=== PATIENT | male | born 1955 | race Caucasian/White ===

== ENCOUNTER 2019-07-09 11:00 | Outpatient (RCR) | payer SELFPAY | END 2019-08-08 00:01 | LOC: CR 11:00 | PROVIDERS: Family Provider Internal Medicine; Referring Provider Thoracic Surgery (Cardiothoracic Vascular Surgery); Visit Provider Thoracic Surgery (Cardiothoracic Vascular Surgery) | DX: Z48.812 Encounter for surgical aftercare following surgery on the circulatory system (principal) ==

== ENCOUNTER 2019-08-16 13:31 | Outpatient (RCR) | payer SELFPAY | END 2019-09-08 23:59 | disposition home or self-care (01) | LOC: CR 13:31 | PROVIDERS: Family Provider Internal Medicine; PCP Internal Medicine; Referring Provider Internal Medicine Cardiovascular Disease; Visit Provider Internal Medicine Cardiovascular Disease | DX: Z95.1 Presence of aortocoronary bypass graft (principal) ==

== ENCOUNTER 2020-01-08 15:11 | Outpatient (RCR) | payer SELFPAY | END 2020-02-06 23:59 | disposition home or self-care (01) | LOC: CR 15:11 | PROVIDERS: Family Provider Internal Medicine; PCP Internal Medicine; Referring Provider Internal Medicine Cardiovascular Disease; Visit Provider Internal Medicine Cardiovascular Disease | DX: Z95.1 Presence of aortocoronary bypass graft (principal) ==

== ENCOUNTER 2020-02-07 | Outpatient (RCR) | payer SELFPAY | END 2020-03-08 23:00 | disposition home or self-care (01) | LOC: CR | PROVIDERS: PCP Internal Medicine; Referring Provider Internal Medicine Cardiovascular Disease; Visit Provider Internal Medicine Cardiovascular Disease | DX: Z95.1 Presence of aortocoronary bypass graft (principal) ==

== ENCOUNTER 2020-02-12 15:15 | Outpatient (CLI) | payer MEDICARE, SELFPAY ==
--- NOTE | 2020-02-12 15:45 | USCV_ITS ---
Luis Alfredo Thompson Age: 65 Gender: M : 1955 Exam Date: 02/12/2020 15:47 Ordering Phys: Joce Hodge MD Technologist: DILLON GARCIA [place]am [place] [facility] [place] Indication: RIGHT LOWER EXTREMITY SWELLING PROCEDURES: Venous duplex imaging was performed in only the right lower extremity. The following venous structures were evaluated: common femoral vein, profunda vein, proximal portion of the greater saphenous vein, superficial femoral vein, and the popliteal vein. In addition, the posterior tibial and peroneal trunk were evaluated. Serial compression, augmentation maneuvers, and spectral Doppler flow evaluation were performed. FINDINGS: Normal 2-D Doppler and augmentation and compressibility throughout the lower extremity venous structures. Additional imaging through the proximal calf veins also reveals no thrombus. Limited evaluation of the greater saphenous vein is patent with no thrombus. CONCLUSIONS No DVT right lower extremity. Dr. Myra García DO (Electronically Signed) Final Date: 12 February 2020 16:15 S
== END 2020-02-12 15:16 | disposition home or self-care (01) ==
LOC: US 15:17
PROVIDERS: PCP Internal Medicine; Visit Provider Internal Medicine
DX: R22.41 Localized swelling, mass and lump, right lower limb (principal)
CPT/HCPCS: 93971

== ENCOUNTER 2020-03-12 14:29 | Outpatient (RCR) | payer SELFPAY | END 2020-04-08 23:59 | disposition home or self-care (01) | LOC: CR 14:29 | PROVIDERS: PCP Internal Medicine; Referring Provider Internal Medicine; Visit Provider Internal Medicine Cardiovascular Disease | DX: Z95.1 Presence of aortocoronary bypass graft (principal) ==

== ENCOUNTER 2020-04-09 14:54 | Outpatient (RCR) | payer SELFPAY | END 2020-05-08 23:59 | disposition home or self-care (01) | LOC: CR 14:54 | PROVIDERS: PCP Internal Medicine; Referring Provider Internal Medicine; Visit Provider Internal Medicine Cardiovascular Disease | DX: Z95.1 Presence of aortocoronary bypass graft (principal) ==

== ENCOUNTER 2020-05-10 11:02 | Outpatient (RCR) | payer SELFPAY | END 2020-06-08 23:59 | disposition home or self-care (01) | LOC: CR 11:02 | PROVIDERS: PCP Internal Medicine; Referring Provider Internal Medicine; Visit Provider Internal Medicine Cardiovascular Disease | DX: Z95.1 Presence of aortocoronary bypass graft (principal) ==

== ENCOUNTER 2020-06-09 13:20 | Outpatient (RCR) | payer SELFPAY | END 2020-07-08 23:59 | disposition home or self-care (01) | LOC: CR 13:20 | PROVIDERS: PCP Internal Medicine; Referring Provider Internal Medicine; Visit Provider Internal Medicine Cardiovascular Disease | DX: Z95.1 Presence of aortocoronary bypass graft (principal) ==

== ENCOUNTER 2020-07-11 13:32 | Outpatient (RCR) | payer SELFPAY | END 2020-08-08 23:59 | disposition home or self-care (01) | LOC: CR 13:32 | PROVIDERS: PCP Internal Medicine; Referring Provider Internal Medicine; Visit Provider Internal Medicine Cardiovascular Disease | DX: Z95.1 Presence of aortocoronary bypass graft (principal) ==

== ENCOUNTER 2020-12-31 03:11 | Emergency (ER) | payer MEDICARE, SELFPAY ==
[2020-12-31] VITALS (7 sets, daily range): BP systolic 167–211; BP diastolic 54–81; PULSE 53–82; RESP 16–24; TEMP 36.7–36.9; O2SAT 93–98; BMI 28.6
--- NOTE | 2020-12-31 04:42 | XRR_ITS ---
PROCEDURE INFORMATION: Exam: XR Chest Exam date and time: 12/31/2020 4:47 AM Age: 65 years old Clinical indication: Cough; Prior surgery; Surgery date: 6+ months TECHNIQUE: Imaging protocol: XR of the chest. Views: 1 view. COMPARISON: No relevant prior studies available. FINDINGS: Lungs: No consolidation. Pleural spaces: Unremarkable. No pleural effusion. No pneumothorax. Heart/Mediastinum: Cardiomegaly. Bones/joints: Previous median sternotomy. XR/XR chest 1V portable 27113 IMPRESSION: No acute findings.
[2020-12-31] MEDS: cloNIDine 0.1 mg Tablet PO (05:03)
--- NOTE | 2020-12-31 05:05 | PC.NURSE ---
0445: assumed care of pt at this time. Pt comes to ED with c/o elevated b/p. Pt is a/o x 4, answers all questions appropriately. at bedside.
[2020-12-31 05:09] LABS: Basophils % 0.3 %; Eosinophils # 0.3 10^3/uL (0.0-0.8); Eosinophils % 3.1 %; Hematocrit 42.1 % (42.0-52.0); Hemoglobin 13.6 g/dL (11.7-16.6); Lymphocytes # 1.7 10^3/uL (0.8-4.8); Lymphocytes % 15.6 %; Mean Corpuscular HGB Conc 32.3 g/dL (30.0-36.0); Mean Corpuscular Hemoglobin 30.6 pg (28.0-34.0); Mean Corpuscular Volume 94.8 fL (80-94); Mean Platelet Volume 10.7 fL (7.4-10.4); Monocytes # 0.8 10^3/uL (0.2-0.9); Monocytes % 7.6 %; Neutrophils % 73.3 %; Nucleated Red Blood Cells % 0 %; Platelet Count 254 10^3/cmm (130-400); Red Blood Count 4.44 10^6/uL (4.1-5.3); Red Cell Distribution Width 13.1 % (12.1-15.1); White Blood Count 10.9 10^3/uL (4.0-10.0)
[2020-12-31 05:29] LABS: Alanine Aminotransferase 11 U/L (0-41); Albumin Level 3.2 g/dL (3.5-5.2); Alkaline Phosphatase 99 IU/L (40-130); Aspartate Amino Transferase 17 U/L (0-40); Blood Urea Nitrogen 27 mg/dL (8-23); Calcium 7.8 mg/dL (8.5-10.5); Carbon Dioxide 21 mmol/L (22-29); Chloride 106 mmol/L (98-107); Globulin 3.2 g/dL (1.3-4.6); Glomerular Filtration Rate 55.2 mL/min (90-130); Glucose 152 mg/dL (65-115); Osmolality Calculated 294 mOsm/kg (285-295); Sodium 138 mmol/L (136-145); Total Bilirubin 0.2 mg/dL (0.15-1.2); Total Protein 6.4 g/dL (6.6-8.7)
--- NOTE | 2020-12-31 05:29 | W.ED.GENADLT ---
HPI - General Adult General: Chief complaint: General Medical Stated complaint: high BP Time Seen by Provider: 12/31/20 04:16 History of Present Illness: HPI narrative: Patient is a well-appearing 65-year-old male seen for hypertension. He states that he was about to go to bed, when he checked his blood pressure and found to be 220 systolic. He takes clonidine 0.1 mg twice daily and states that typically he has good blood pressure control, with systolic blood pressure of roughly 130. He denies chest pain, shortness of breath, headache, visual disturbance, flank pain, abdominal pain, and has no other acute complaints. He states that he has been compliant with his clonidine regimen, last dose being at roughly 7 PM on December 30. Review of Systems General: Reports: 10 or more systems reviewed and unremarkable except in HPI and below PFSH ED PFSH: Medical History CAD (coronary artery disease) Diabetes 1.5, managed as type 1 Essential hypertension Hypercholesterolemia Surgical History History of appendectomy Hx of CABG Family History Father Cancer Other Diabetes Social History Smoking and tobacco status: current every day smoker Alcohol intake: current Alcohol intake frequency: few times a month Marital status: Number of children: 2 service: No History of recent travel: No Current gender identity: Male Physical Exam Const: COMMON NORMALS: no acute distress, patient oriented x3 and alert HENMT: COMMON NORMALS: normocephalic and atraumatic HEAD & SCALP: normocephalic and atraumatic Eye: COMMON NORMALS: Equal, round and reactive pupils present, EOMs intact bilaterally and no scleral icterus PUPIL: Yes Equal, round and reactive pupils present Resp: COMMON NORMALS: normal respiratory effort, No retractions and No use of accessory muscles EFFORT & INSPECTION: Yes audible wheezes Cardio: COMMON NORMALS: regular rate, regular rhythm and No murmurs present (Cardio) RATE: regular rate RHYTHM: regular rhythm GI: COMMON NORMALS: Normal to inspection, nondistended, normoactive bowel sounds present, Soft to palpation and non-tender PALPATION: Yes Soft to palpation Neuro: COMMON NORMALS: patient oriented x3 SENSORIUM/ORIENTATION: Yes alert Skin: COMMON NORMALS: no rashes or lesions noted GENERAL SKIN EXAM: no rashes or lesions noted Course Vital Signs: Vital signs: Vital Signs Temperature 98.5 F 12/31/20 03:18 Pulse Rate 56 L 12/31/20 05:15 Respiratory Rate 16 12/31/20 05:05 Blood Pressure 196/81 12/31/20 05:03 Pulse Oximetry 98 12/31/20 05:05 MDM - General Adult MDM Narrative: Medical decision making narrative: Patient remained hemodynamically stable throughout ED course. He had mild expiratory wheezes in all lung jewell, however physical exam is otherwise unremarkable. He was given an extra dose of his clonidine and blood pressure dropped appropriately. EKG, chest x-ray, labs showed no acute process. He will be discharged home in stable and improved condition with close follow-up to primary care to consider further alteration to his antihypertensive regimen. He knows he is always welcome back in the emergency department if his symptoms get worse before outpatient follow-up. Lab Data: Labs: Lab Results 12/31/20 12/31/20 Range/Units 05:02 05:02 WBC 10.9 H (4.0-10.0) 10^3/ uL RBC 4.44 (4.1-5.3) 10^6/u L Hgb 13.6 (11.7-16.6) g/dL Hct 42.1 (42.0-52.0) % MCV 94.8 H (80-94) fL MCH 30.6 (28.0-34.0) pg MCHC 32.3 (30.0-36.0) g/dL RDW 13.1 (12.1-15.1) % Plt Count 254 (130-400) 10^3/c mm MPV 10.7 H (7.4-10.4) fL Neut % (Auto) 73.3 % Lymph % (Auto) 15.6 % [place] % (Auto) 7.6 % Eos % (Auto) 3.1 % Baso % (Auto) 0.3 % Neut # (Auto) 8.00 H (1.8-7.7) 10^3/u L Lymph # (Auto) 1.7 (0.8-4.8) 10^3/u L [place] # (Auto) 0.8 (0.2-0.9) 10^3/u L Eos # (Auto) 0.3 (0.0-0.8) 10^3/u L Baso # (Auto) 0.0 (0.0-0.1) 10^3/u L Nucleated RBC % (a uto) 0 % Nucleated RBCs # 0.0 /100WBC Sodium 138 (136-145) mmol/L Potassium 5.0 (3.5-5.1) mmol/L Chloride 106 (98-107) mmol/L Carbon Dioxide 21 L (22-29) mmol/L Anion Gap 16.0 (5-19) BUN 27 H (8-23) mg/dL Creatinine 1.3 H (0.7-1.2) mg/dL GFR Calculation 55.2 L (90-130) mL/min Glucose 152 H (65-115) mg/dL Calculated Osmolal ity 294 (285-295) mOsm/k g Calcium 7.8 L (8.5-10.5) mg/dL Total Bilirubin 0.2 (0.15-1.2) mg/dL AST 17 (0-40) U/L ALT 11 (0-41) U/L Alkaline Phosphata se 99 (40-130) IU/L Total Protein 6.4 L (6.6-8.7) g/dL Albumin 3.2 L (3.5-5.2) g/dL Globulin 3.2 (1.3-4.6) g/dL Imaging Data^: CXR: My impression: No acute cardiopulmonary process. No consolidation and no pneumothorax. EKG Data^: EKG 1: Computer generated interpretation: Chest X-Ray 12/31/20 04:42 IMPRESSION: No acute findings. Discharge Plan Discharge Patient Disposition: Home Clinical Impression: Accelerated hypertension Condition: Stable Prescriptions: No Action loratadine [Loradamed] 10 mg tablet 10 mg PO DAILY RF: 0 aspirin [Aamir Aspirin] 325 mg tablet 325 mg PO DAILY RF: 0 chlorthalidone 25 mg tablet 25 mg PO DAILY Qty: 90 RF: 3 blood sugar diagnostic [SimpliFieldTouch Ultra Blue Test Strip] Strip See Rx Instructions .ROUTE .COMPLEX Qty: 100 RF: 9 glimepiride 4 mg tablet 4 mg PO BID Qty: 180 RF: 3 metformin 1,000 mg tablet 1,000 mg PO BID Qty: 180 RF: 3 carvedilol 25 mg tablet 25 mg PO BID Qty: 180 RF: 3 losartan 100 mg tablet 150 mg PO DIRECTED Qty: 135 RF: 3 rosuvastatin 5 mg tablet 5 mg PO DAILY Qty: 30 RF: 5 amlodipine 5 mg tablet See Rx Instructions .ROUTE .COMPLEX Qty: 180 RF: 1 omeprazole 20 mg capsule,delayed release(DR/EC) 20 mg PO .at bedtime Qty: 90 RF: 3 clonidine HCl 0.1 mg tablet 0.1 mg PO BID Qty: 60 RF: 3 Discharge Orders: Discharge ED (Routine); Ordered 12/31/20 Ordered By: Marcos Aguilera Referrals: Joce Hodge MD [Primary Care Provider] - Discharge Diet: Usual diet Discharge Activity: Resume usual activity Patient Instructions: Opioid Safety Activity Restrictions/Additional Instructions: Testing today shows no evidence of endorgan damage from your accelerated hypertension. EKG, chest x-ray, labs are all reassuring. Please follow-up with your primary care physician to discuss whether augmentation to your antihypertensive medication regimen is warranted. Coding Level of Care Code ED Territory Business Manager for Chg Fwd Exam Detailed
[2020-12-31 05:30] LABS: Creatinine Clr Calc Pharmacy 52.0372
--- NOTE | 2020-12-31 05:35 | ECG_ITS ---
[facility] Test Date: 2020-12-31 Pat Name: Luis Alfredo Thomposn Department: Room: Gender: Male Block Cuber: : 1955 Requested By: Marcos Aguilera Order Number: [id number] Jack MD: Saba Sims M.D. Measurements Intervals [place] Rate: 53 P: 80 HI: 178 QRS: 50 QRSD: 110 T: 18 QT: 446 QTc: 419 Interpretive Statements SINUS BRADYCARDIA SEPTAL MYOCARDIAL INFARCTION , OF INDETERMINATE AGE [40+ ms Q WAVE IN V1/V2] No previous ECG available for comparison Electronically Signed On 12-31-2020 18:38:01 CDT by Saba Sims M.D. [id number] f
== END 2020-12-31 06:33 | disposition home or self-care (01) ==
PROVIDERS: Emergency Provider Student in an Organized Health Care Education/Training Program; PCP Internal Medicine
DX: I10 Essential (primary) hypertension (principal); Z79.82 Long term (current) use of aspirin; Z79.84 Long term (current) use of oral hypoglycemic drugs; I25.10 Atherosclerotic heart disease of native coronary artery without angina pectoris; E13.9 Other specified diabetes mellitus without complications; Z95.1 Presence of aortocoronary bypass graft; F17.210 Nicotine dependence, cigarettes, uncomplicated
CPT/HCPCS: 71045; 80053; 85025; 93005; 94640; 99284; J7611

== ENCOUNTER 2021-02-06 09:56 | Outpatient (RCR) | payer SELFPAY | END 2021-03-08 23:59 | disposition home or self-care (01) | LOC: CR 09:56 | PROVIDERS: PCP Internal Medicine; Referring Provider Internal Medicine Cardiovascular Disease; Visit Provider Internal Medicine Cardiovascular Disease | DX: Z95.1 Presence of aortocoronary bypass graft (principal) ==

== ENCOUNTER 2021-03-13 11:47 | Outpatient (RCR) | payer SELFPAY | END 2021-04-08 23:59 | disposition home or self-care (01) | LOC: CR 11:47 | PROVIDERS: PCP Internal Medicine; Referring Provider Internal Medicine Cardiovascular Disease; Visit Provider Internal Medicine Cardiovascular Disease | DX: Z95.1 Presence of aortocoronary bypass graft (principal) ==

== ENCOUNTER 2021-05-09 10:32 | Outpatient (RCR) | payer SELFPAY | END 2021-06-08 23:59 | disposition home or self-care (01) | LOC: CR 10:32 | PROVIDERS: PCP Internal Medicine; Referring Provider Internal Medicine Cardiovascular Disease; Visit Provider Internal Medicine Cardiovascular Disease | DX: Z95.1 Presence of aortocoronary bypass graft (principal) ==

== ENCOUNTER 2021-05-15 08:58 | Outpatient (CLI) | payer MEDICARE, SELFPAY ==
--- NOTE | 2021-05-15 09:05 | NMCV_ITS ---
NM pam perf SPECT r/s* [id number] Luis Alfredo Thompson Age: 66 Gender: M : 1955 Exam Date: 05/15/2021 09:05 Ordering Phys: Robert King MD ([email or web address]) Technologist: GREGG Reid Exam Location: [facility] Indications: SHORTNESS OF BREATH STRESS TEST [facility] IMAGE PROTOCOL Rest/Stress 1 Lexiscan Day Radiopharmaceutical Dose (mCi) Administration Site Administered by Rest: Tc-99m 11.0 IV GREGG Reid Sestamibi Stress:Tc-99m 32.5 IV GREGG Mulligan Sestamibi Rest: 15-May-2021 60 Discovery 630 Stress: 15-May-2021 30 Discovery 630 0.4mg Lexiscan. Supine position only as patient was unable to lay prone. SPECT RESULTS Technical Quality: Excellent Raw Data Analysis: Normal Image Corrections: No attenuation or motion correction applied Summed Stress Score: 18 Summed Rest Score: 3 Summed Difference Score: 15 PERFUSION FINDINGS Medium-sized area of reduced tracer uptake noted in basal to distal inferior wall on rest images which showed moderate to severe reversibility of medium to large area suggestive of old myocardial infarction surrounded by medium to large area of ischemia FUNCTIONAL RESULTS (calculated via Gated SPECT) Stress Image LV EF (%): 48 Stress EDV (mL):128 TID: 1 Stress ESV (mL):67 Rest Image LV EF (%): 48 FUNCTIONAL FINDINGS: Basal to distal inferior and infero lateral wall severe regional hypokinesis. In general there is a global hypokinesis as well. Left ventricle function is moderately depressed at 48%. IMPRESSIONS Medium to large area of old myocardial infarction noted in basal to distal inferior wall surrounded by large area of severe ischemia extending from inferior to inferolateral wall suggestive of lesion in dominant RCA or circumflex. EKG segment will be documented separately. Robert King MD (Electronically Signed) Final Date: 15 May 2021 14:25 S
--- NOTE | 2021-05-15 09:05 | ECG_ITS ---
[facility] Test Date: 2021-05-15 Pat Name: Luis Alfredo Thompson Department: Room: Gender: Male Cpo: : 1955 Requested By: Robert King Order Number: [id number] Jack MD: Saba Sims M.D. Interpretive Statements NAME OF STUDY: LEXISCAN SESTAMIBI STRESS TEST INDICATION: Chest Pain; Shortness of Breath PROCEDURE: At the baseline, the blood pressure was 159/70 mmHg with a heart rate of 58 bpm. The electrocardiogram showed sinus bradycardia, normal axis, ST-T depression and T wave inversion in inferior and lateral leads. The Lexiscan was infused over a period of 20 seconds. A total of 0.4 milligrams of Lexiscan was infused. The stress phase was continued for a total of 5 minutes. Heart rate at the end of the stress phase was 69 bpm with a blood pressure of 158/68 mmHg. The EKG at the peak infusion revealed no significant ST-T wave changes. The study was terminated due to protocol completion. Sestamibi was injected 20 seconds after the Lexiscan infusion. Blood pressure at the end of the recovery phase was 163/74 mmHg with a heart rate of 68 beats per minute. CONCLUSION: 1. Nondiagnostic EKG changes with the LexiScan infusion due to baseline ST-T wave changes. 2. No LexiScan induced chest pain or cardiac arrhythmia. 3. Normal blood pressure and heart rate response. 4. Sestamibi/sestamibi perfusion scan pending; see separate report. Electronically Signed On 05-19-2021 12:17:04 CDT by Saba Sims M.D. [id number]
[2021-05-15 09:13] VITALS: BMI 27.4
[2021-05-15] MEDS: regadenoson 0.4 Mg/5 ml Syringe IVP (10:33)
[2021-05-15 10:52] VITALS: BP 163/74; PULSE 68
== END 2021-05-15 08:59 | disposition home or self-care (01) ==
PROVIDERS: PCP Internal Medicine; Visit Provider Internal Medicine Cardiovascular Disease
DX: R07.9 Chest pain, unspecified (principal); R06.02 Shortness of breath; I25.2 Old myocardial infarction
CPT/HCPCS: 78452; 93017; A9500; J2785

== ENCOUNTER 2021-06-10 14:33 | Outpatient (RCR) | payer MEDICARE, SELFPAY | END 2021-07-08 23:59 | disposition home or self-care (01) | LOC: CR 14:33 | PROVIDERS: PCP Internal Medicine; Referring Provider Internal Medicine Cardiovascular Disease; Visit Provider Internal Medicine Cardiovascular Disease | DX: Z95.1 Presence of aortocoronary bypass graft (principal) | CPT/HCPCS: 80048; 85025; 85610; 87635 ==

== ENCOUNTER 2021-06-16 07:07 | Outpatient (CLI) | payer MEDICARE, SELFPAY ==
[2021-06-16 07:58] VITALS: BP 175/75; PULSE 60; RESP 18; TEMP 36.4; O2SAT 97; BMI 27.6
[2021-06-16] MEDS: diphenhydrAMINE 50 mg Capsule PO (08:21)
[2021-06-16 08:56] LABS: Anion Gap 12.4 (5-19); Blood Urea Nitrogen 21 mg/dL (8-23); Calcium 7.5 mg/dL (8.5-10.5); Carbon Dioxide 27 mmol/L (22-29); Chloride 110 mmol/L (98-107); Glomerular Filtration Rate 46.7 mL/min (90-130); Glucose 196 mg/dL (65-115); Osmolality Calculated 308 mOsm/kg (285-295); Potassium 4.4 mmol/L (3.5-5.1); Sodium 145 mmol/L (136-145)
[2021-06-16 09:31] VITALS: BMI 27.8
[2021-06-16] MEDS: sodium chloride 0.9% 1,000 ML 100 ML IV ×3 (10:16→19:40)
[2021-06-16] MEDS: pantoprazole DR 40 mg Tablet PO (10:17)
[2021-06-16] MEDS: amlodipine 5 mg Tablet PO ×2 (10:17→17:16)
[2021-06-16 12:04] VITALS: BP 164/68; PULSE 56; RESP 26; O2SAT 96
[2021-06-16 12:36] VITALS: TEMP 37.1
[2021-06-16 15:41] VITALS: BP 183/64; PULSE 57; RESP 18; TEMP 36.9; O2SAT 95
[2021-06-16] MEDS: carvedilol 25 mg Tablet PO (17:16)
[2021-06-16] MEDS: isosorbide mononitrate ER 30 mg Tablet 15 MG PO (17:16)
[2021-06-16] MEDS: cloNIDine 0.1 mg Tablet 0.2 MG PO (17:16)
[2021-06-16 19:38] VITALS: BP 186/63; PULSE 56; RESP 24; TEMP 36.6; O2SAT 96
--- NOTE | 2021-06-16 19:52 | PC.NURSE ---
Patient called to say he needed his iv plugged in. When in the room his stated I don't care what time visiting hours are, I will stay until when I want to. If visiting hours end at eight, I will stay until 815 to prove my point. No one is going to tell me when and what time time I can come and go as I am the only person that can calm him down if needed. Educated and patient on visiting hours per policy. Will inform patients nurse.
[2021-06-16] MEDS: atorvastatin 40 mg Tablet 20 MG PO (20:06)
[2021-06-16 23:56] VITALS: BP 190/68; PULSE 59; RESP 24; TEMP 36.6; O2SAT 94
[2021-06-17] VITALS (59 sets, daily range): BP systolic 117–196; BP diastolic 54–93; PULSE 53–75; RESP 14–26; TEMP -12.7–36.3; O2SAT 91–96
[2021-06-17] MEDS: hyDRALAzine 20 mg/mL INJ 1 mL 10 MG IVP (00:38)
[2021-06-17] MEDS: sodium chloride 0.9% 1,000 ML 100 ML IV (05:02)
[2021-06-17 06:22] LABS: Anion Gap 14.1 (5-19); Blood Urea Nitrogen 20 mg/dL (8-23); Calcium 7.6 mg/dL (8.5-10.5); Carbon Dioxide 23 mmol/L (22-29); Chloride 107 mmol/L (98-107); Glomerular Filtration Rate 55.1 mL/min (90-130); Glucose 187 mg/dL (65-115); Osmolality Calculated 298 mOsm/kg (285-295); Potassium 4.1 mmol/L (3.5-5.1); Sodium 140 mmol/L (136-145)
--- NOTE | 2021-06-17 06:32 | XACV_ITS ---
Exam Room: [facility] Ht: 163 cm Wt: 73 kg BSA: 1.83 m2 Gender: Male : 1955 Exam Priority: Routine Procedure(s): Procedure Description: Diagnostic procedure Procedure Description: PCI procedure Procedure Description: Venous Graft Catheterization Procedure Description: Drug Eluting Coronary Stent Procedure Description: PTCA Procedure Description: Miscellaneous Procedure Description: ACT Procedure Description: Coronary Angiography Procedure Description: Pressure Wire JUNIOR, Fernando; Diagnostic Cath Status: Elective Diagnostic Findings * Left Main has no disease. * Proximal Left Anterior Descending to Mid Left Anterior Descending: significant 75% stenosis, YOHAN: 3 flow, iFR performed: ratio is 0.81. * Proximal Right Coronary Artery: total occlusion, YOHAN: 0 flow. * Proximal Circumflex: severe 90% stenosis, YOHAN: 2 flow. * Proximal Circumflex to Mid Circumflex: severe 90% stenosis, YOHAN: 3 flow. * 1st Diagonal: obstructive 70% stenosis, YOHAN: 3 flow. * Ascending Aorta to Posterior Descending Right graft: patent. * Ascending Aorta to First Obtuse Marginal Branch Segment graft: total occlusion, YOHAN: 0 flow. * Two grafts visualized. * Coronary angiography shows right dominance. Interventional Findings * Proximal Left Anterior Descending to Mid Left Anterior Descendin% stenosis treated with a Drug Eluting Stent. 0% residual stenosis, YOHAN: 3 flow. Conclusions 1. There is total occlusion coronary artery disease with three vessel disease. 2. Two coronary grafts visualized: one graft patent, and one graft occluded. 3. Patient has prior CABG. 4. Proximal Left Anterior Descending to Mid Left Anterior Descending was treated with a Drug Eluting Stent. 5. I 6. FR: After equalizing the distal and proximal pressure of FFR wire proximal to the lesion, mid L 7. AD 8. lesion was crossed with 9. I 10. FR wire 11. at then end of two minutes 12. I 13. FR was recorded as 0.81, which is significant 14. . Recommendations * 1-Return to inpatient for close monitoring and routine cath care2-Risk factor modification for secondary prevention3-Statin and aspirin 81 mg life--long, if tolerated4-Continue Plavix 75mg p.o. daily for at least one year. We will assess at the end of one year again to continue if further or not5-Continue optimal medical management6-Follow up with Dr. King in four weeks and your primary care in 10 days. Interventional RX Recommendation: PCI w/o planned CABG Diagnostic RX Recommendation: PCI w/o planned CABG Clinical Evaluation EBL: 5mL-10mL Procedural Details Procedure Consent Obtained. Admit Source: In Patient. Pre-Procedure Time Out. Identified patient by full name and date of as verbalized by the patient/guarantor. Does the consent match the physician's order: Yes. Accurate & Complete Informed Consent: Yes. Inpatient/Outpatient History & Physical on Chart: Yes. Visualize and Verify Site with Patient/Guarantor: N/A. Relevant Radiology Images available: N/A. Pre-op teaching completed and patient verbalized understanding. The risks, benefits, and alternatives of sedation and/or procedure were discussed by physician. The patient agrees to continue. Procedure started. [facility] Clinical Fraility Score: 4: Vulnerable. Door Closer Indications: Worsening Angina. Chest Pain Symptom Assessment: Atypical Angina. Correct patient, site and procedure confirmed by cath team. PERRLA. Strong, equal hand can repairer bilaterally. Lungs clear x 5 lobes. IV Site on Arrival: 20 gauge in the left anticubital. IV Fluids: 0.9% NaCl at KVO. 100 mL infused prior to chemical laboratory technician. Pre Procedural Pulses: right dorsalis pedis was 1+. Pre Procedural Pulses: left dorsalis pedis was 2+. Oxygen started at 2liters/min via nasal canula. right groin was prepped with chloroprep then draped in the usual sterile fashion. Baseline sample Acquired. HR: 64 BPM. Physician notified. Physician arrived. Physician scrubbed in. Immediate Pre-Procedure Time Out. Correct Patient: Yes; Correct Procedure: Yes; Correct Site: Yes; Correct Patient Position: Yes; Correct Supplies: Yes; Dried Flammable Prep: Yes; Blood Products Available: n/a. Lidocaine 1% infiltrated to the right groin. Arterial access obtained. A 5 bulgarian JL4 catheter in over wire. Multiple views taken of left coronary artery. Catheter out. A 5 bulgarian JR4 catheter in over wire. Multiple views taken of right coronary artery. SVG to RCA visualized. SVG to Circumflex occluded. CASILLAS visualized. Catheter out. 6 bulgarian XB 3 guide catheter was inserted over the wire. FFR guidewire was advanced through the guide catheter to lesion in the mid LAD. An FFR value of 0.81 was obtained for a lesion located at Mid LAD. FFR not done with Adenosine. IFR value of 0.81 recorded. Fractional flow reserve measurements obtained. Wire out. Isabella guidewire was advanced through the guide catheter to lesion in the mid LAD. 2nd cougar wire positioned into Diagonal. Balloon inserted to lesion in the mid LAD. Inflation number : 1 A AB TREK 2.50X12 RX BALLOON was prepped and advanced across the Mid LAD , then inflated to 16 MIRELLA for 0:15 seconds. Balloon out. Results checked. Stent inserted to lesion in the mid LAD. Inflation Number : 2 A DANIELLA Lockwood RYLEE 3.0X15 DIAN -Lot Number# [id number] Exp 09/12/2022 was prepped and advanced across the Mid LAD. The stent was deployed at 12 MIRELLA for 0:17 seconds. Stent balloon out over wire. 2nd Isabella wire removed from Diagonal. Inflation number : 3 A DANIELLA BRICEÑO EUPHORA RX [id number] BALLOON was prepped and advanced across the Mid LAD , then inflated to 12 MIRELLA for 0:19 seconds. Inflation number: 4 The MDT NAVARRO EUPHORA RX [id number] BALLOON was reinflated across the Mid LAD, to 10 MIRELLA for 0:13 seconds. Balloon out. Results checked. ACT drawn. Results 164 seconds. Therapeutic limits - pre-heparin administration 90-150 seconds and monitoring heparin during a vascular procedure >250 seconds. Wire out. Guide catheter out. A Right femoral angiogram was performed to determine safe placement of closure device. A Suture was successful obtaining hemostatsis at the Right Femoral artery insertion site. Post Procedure: Pulses reassessed and unchanged. PERRLA. Strong, equal hand can repairer bilaterally. No VTE prophylaxis required. Medication's Wasted: Lidocaine 1% = 10 mL. Total IV fluids: 75 mL. PCI Indication: CAD, Significant Mid LAD lesion by IFR. Post-op diagnosis: CAD. Complications: none. Estimated blood loss: 5mL-10mL. Procedure completed. Patient transferred by bed to 1st floor. Medication's Wasted: Heparin = 3000 u. Vital chart was stopped. Access Site Site: Right Femoral artery Sheath Size: 6 Fr Hemostasis Method: Suture Hemostasis Success: Successful Procedure Medications Start: 6:48 AM Stop: 6:48 AM Medication: Versed Amount: 1 mg Route: I.V. Start: 6:48 AM Stop: 6:48 AM Medication: Fentanyl Amount: 50 mcg Route: I.V. Start: 6:57 AM Stop: 6:57 AM Medication: Versed Amount: 1 mg Route: I.V. Start: 6:57 AM Stop: 6:57 AM Medication: Fentanyl Amount: 50 mcg Route: I.V. Start: 7:18 AM Stop: 7:18 AM Medication: Heparin Amount: 6000 units Route: I.V. Start: 7:32 AM Stop: 7:32 AM Medication: Heparin Amount: 1000 units Route: I.V. Start: 7:33 AM Stop: 7:33 AM Medication: Aggrastat 12.5 mg/250 mL Amount: 37 ml Route: I.V. bolus Start: 7:33 AM Stop: 7:33 AM Medication: Aggrastat 12.5 mg/250 mL Amount: 13.3 ml/hr Route: I.V. drip Start: 7:37 AM Stop: 7:37 AM Medication: Versed Amount: 1 mg Route: I.V. Start: 7:43 AM Stop: 7:43 AM Medication: Hydralazine Amount: 10 mg Route: I.V. Start: 7:45 AM Stop: 7:45 AM Medication: Lasix (furosemide) Amount: 40 mg Route: I.V. Start: 7:49 AM Stop: 7:49 AM Medication: Heparin Amount: 4000 units Route: I.V. I, the attending physician, have reviewed and verified all procedure medications. Yes, all medications given per verbal order History/Risk Factors Hypertension: Yes Dyslipidemia: Yes Peripheral Arterial Disease (PAD): No Myocardial Infarction (WA): Yes Obesity: Yes Renal Disease: No Tobacco Use: Current/Recent(w/in 1 year) Prior Interventions PCI: Yes CABG: Yes Valve Surgery: No Date of PCI: 08/09/2002 Report Signatures Finalized by Robert King MD on 07/01/2021 06:44 PM
--- NOTE | 2021-06-17 06:50 | W.PM.OPSUD ---
Surgery/Procedure H&P Update DATE OF PROCEDURE: June 17, 2021 DATE H&P PERFORMED: 06/17/21 H&P UPDATE INFORMATION: I have reviewed H&P completed within last 30 days, I have examined patient prior to procedure and No changes to prior documentation PREOP DIAGNOSIS: Worsening of shortness of breath, abnormal stress test PLANNED PROCEDURE: Operation Date: 06/16/21 08:30 Proposed Procedures p Cardiac Catheterization(Left) - Robert King MD PATIENT REASSESSED PRIOR TO SEDATION, WITH NO CHANGE NOTED: Yes PHYSICAL EXAM: alert, oriented x 3 and clear to auscultation bilaterally AIRWAY EVAL/ANESTHESIA PLAN: ASA II, Risks, benefits & alternatives of sedation and/or procedure discussed and Patient agrees to continue as planned ADDITIONAL INFORMATION: All risk benefit and not contrast-induced nephropathy renal failure major minor bleed urgent emergent bypass surgery infection hematoma stroke pseudoaneurysm was explained to the patient in detail he would like to proceed with it. He is a candidate for DAPT.
--- NOTE | 2021-06-17 08:02 | PM.PN ---
Subjective Subjective: Interval history: Patient underwent coronary angiogram noted to have patent proximal LAD stent but distal to the stent in the mid LAD there was a moderate to severe lesion distal LAD also had subtotal occlusion but it is a small vessel in the distal segment. Mid LAD stent was then assessed through IFR which was significant at 0.83. It was treated with balloon angioplasty followed by single drug-eluting stent postdilated with noncompliant balloon. Diagonal was jailed but did not compromise on the ostium. LAD was not grafted in the past because there is a free CASILLAS. Patient had SVG to obtuse marginal which is chronically occluded while SVG to RCA is patent. Circumflex and RCA is 100% occluded in the ostial and proximal segment respectively. Good angiographic result with YOHAN-3 flow was achieved. Patient was loaded with Plavix given Aggrastat and heparin. During procedure he started having some respiratory distress with possible volume overload he was given 40 mg of IV Lasix. At the end of the procedure patient did not complain of shortness of breath or chest pain. Vitals/I&O/Wt Last Vital Signs Temp 97 F L 06/17/21 03:31 Pulse 57 L 06/17/21 03:31 Resp 23 H 06/17/21 03:31 BP 189/63 06/17/21 03:31 Pulse Ox 96 06/17/21 03:31 06/16/21 06/17/21 06/17/21 22:59 06:59 14:59 Intake Total 2415.000 / 2655.000 936.667 / 3591.667 Balance 2415.000 / 2655.000 936.667 / 3591.667 Weight last 48 hrs Weight 162 lb 9 oz Weight 161 lb Physical Exam Narrative: EXAM NARRATIVE: GENERAL: Patient is alert, awake and oriented x3. NECK: No jugular vein distension. HEENT: No cyanosis. No icterus. No pallor. HEART: Regular S1 and S2. No murmur, rub or gallop. LUNGS: Expiratory wheeze bilaterally. ABDOMEN: Soft, nontender and nondistended. Positive bowel sounds. No guarding, rebound or tenderness. CENTRAL NERVOUS SYSTEM: Grossly nonfocal. EXTREMITIES: Lower extremities without edema bilaterally. Pulses palpable in the lower extremities, both dorsalis pedis and posterior tibial. Data : 06/17/21 05:50 A&P Assessment and plan (1) CAD (coronary artery disease): Patient underwent coronary angiogram noted to have patent proximal LAD stent but distal to the stent in the mid LAD there was a moderate to severe lesion distal LAD also has subtotal occlusion but it is a small vessel in the distal segment. Mid LAD stent was then assessed through IFR which was significant at 0.83. It was treated with balloon angioplasty followed by single drug-eluting stent postdilated with noncompliant balloon. Diagonal was jailed but did not compromise on the ostium. LAD was not grafted in the past because there is a free CASILLAS. Patient had SVG to obtuse marginal which is chronically occluded while SVG to RCA is patent. Circumflex and RCA is 100% occluded in the ostial and proximal segment respectively. Good angiographic result with YOHAN-3 flow was achieved. Patient was loaded with Plavix given Aggrastat and heparin. During procedure he started having some respiratory distress with possible volume overload he was given 40 mg of IV Lasix. At the end of the procedure patient did not complain of shortness of breath or chest pain. Continue rest of the medicine. He will be bedrest for 6 hours Status: Acute Qualifiers: Coronary Disease-Associated Artery/Lesion type: [place] artery [place] vs. transplanted heart: [place] heart Associated angina: without angina Qualified Code(s): I25.10 - Atherosclerotic heart disease of [place] coronary artery without angina pectoris (2) Essential hypertension: Blood pressure is elevated I will start patient on nitroglycerin IV Status: Acute (3) Renal failure (ARF), acute on chronic: Patient was given IV fluid for the last 24 hours in order to prevent contrast-induced nephropathy. Continue to monitor renal function renal function has improved from 1.5-1.3 which is the baseline Status: Acute Attestations Medical Necessity Statement*: Patient require continuation hospitalization for above defined care Coding Level of Care Code Acute Ase Certified Technician for [facility] Diagnoses CAD (coronary artery disease) I25.10 Coronary Disease-Associated Artery/Lesion type: [place] artery [place] vs. transplanted heart: [place] heart Associated angina: without angina Essential hypertension I10 Renal failure (ARF), acute on chronic N17.9; N18.9
[2021-06-17] MEDS: nitroglycerin drip 50 MG/250 ML PREMIX IV (08:40)
[2021-06-17] MEDS: aspirin 325 mg Tablet PO (08:49)
[2021-06-17] MEDS: cloNIDine 0.1 mg Tablet 0.2 MG PO ×2 (08:49→16:26)
[2021-06-17] MEDS: carvedilol 25 mg Tablet PO ×2 (08:50→17:34)
[2021-06-17] MEDS: isosorbide mononitrate ER 30 mg Tablet 15 MG PO ×2 (08:51→17:34)
[2021-06-17] MEDS: loratadine 10 mg Tablet PO (08:51)
[2021-06-17] MEDS: amlodipine 5 mg Tablet PO ×2 (08:51→17:33)
[2021-06-17] MEDS: pantoprazole DR 40 mg Tablet PO (08:51)
[2021-06-17] MEDS: insulin lispro 100 unit/1 mL SUBCUT ×4 (09:12→21:29)
[2021-06-17 09:35] LABS: Glucose Point of Care 210 mg/dL (70-110)
--- NOTE | 2021-06-17 10:54 | PC.NURSE ---
received into room 104 from catheterization laboratory technician via bed,at 0815.pt is alert and awake and oriented x 4.sr on monitor.bp elevated.ntg began at 10 mcg/kg/min as ordered, and am antihypertensive meds given. .aggrastat infusing at 13.3 mls/hr.right femoral sheath intact to pressurized system.right groin with drsg dry and intact.no hematoma noted.right leg is warm to touch and with brisk capillary refill.palpable dp pulse noted.instructed in activity restrictions s/p femoral artery procedure,and instructed to notify staff for any bleeding,pain,cp,or for any concerns at all.pt verb understanding of instructions.
[2021-06-17 10:57] LABS: Partial Thromboplastin Time > 250.0 SECONDS (23.9-36.7)
[2021-06-17 11:16] LABS: Glucose Point of Care 230 mg/dL (70-110)
--- NOTE | 2021-06-17 13:10 | PC.NURSE ---
ptt > 250.will recheck ptt at 1300.
[2021-06-17] MEDS: fentaNYL 50 mcg/mL INJ 2mL IVP ×2 (15:27→17:10)
[2021-06-17 16:51] LABS: Glucose Point of Care 254 mg/dL (70-110)
--- NOTE | 2021-06-17 20:35 | PC.NURSE ---
ptt came back acceptable to pull sheath from 1300 lab draw...but pt's bp too high.dr duarte notified.he ordered to restart ntg drip and titrate to get sbp below 150/.this took a considerable amt of time..and included addition of 0.2 mg clonidine po.ntg titrated up to 100mcg/kg/min..and finally pulled right femoral arterial sheath at 1716.manual pressure held x 25 min.no hematoma formation noted.right leg remained warm to touch and with brisk capillary refill.site dressed with 2x2 gauze and secured with biocclusive drsg.evening doses of sced antihypertensive meds given a little early..and pts pressure inproved..able to quickly wean ntg down to 20 mcg to keep sbp< 160.instructed pt in activity restrictions s/p arterial sheath pull..and instructed to notify staff for any bleeding,pain,numbness...or for any concerns at all.pt verb understanding of instructions.
[2021-06-17 20:47] LABS: Glucose Point of Care 215 mg/dL (70-110)
[2021-06-17] MEDS: atorvastatin 40 mg Tablet 20 MG PO (21:29)
[2021-06-18 03:21] VITALS: BP 164/69; PULSE 68; RESP 19; TEMP 36.6; O2SAT 94
[2021-06-18 04:01] LABS: Basophils % 0.3 %; Eosinophils # 0.4 10^3/uL (0.0-0.8); Eosinophils % 2.9 %; Hematocrit 43.1 % (42.0-52.0); Hemoglobin 13.6 g/dL (11.7-16.6); Lymphocytes # 1.6 10^3/uL (0.8-4.8); Lymphocytes % 12.4 %; Mean Corpuscular HGB Conc 31.6 g/dL (30.0-36.0); Mean Corpuscular Hemoglobin 29.2 pg (28.0-34.0); Mean Corpuscular Volume 92.7 fl (80-94); Mean Platelet Volume 10.2 fL (7.4-10.4); Monocytes # 0.9 10^3/uL (0.2-0.9); Monocytes % 7.2 %; Neutrophils # 9.97 10^3/uL (1.8-7.7); Neutrophils % 76.8 %; Nucleated Red Blood Cells % 0 %; Platelet Count 294 10^3/cmm (130-400); Red Blood Count 4.65 10^6/uL (4.1-5.3); Red Cell Distribution Width 13.8 % (12.1-15.1)
[2021-06-18 04:33] LABS: Anion Gap 14.8 (5-19); Blood Urea Nitrogen 23 mg/dL (8-23); Calcium 7.8 mg/dL (8.5-10.5); Carbon Dioxide 24 mmol/L (22-29); Chloride 105 mmol/L (98-107); Glomerular Filtration Rate 40.4 mL/min (90-130); Glucose 135 mg/dL (65-115); Osmolality Calculated 296 mOsm/kg (285-295); Potassium 3.8 mmol/L (3.5-5.1); Sodium 140 mmol/L (136-145)
[2021-06-18 06:00] VITALS: PULSE 75
[2021-06-18 06:37] LABS: Glucose Point of Care 164 mg/dL (70-110)
[2021-06-18] MEDS: insulin lispro 100 unit/1 mL SUBCUT (08:12)
[2021-06-18] MEDS: isosorbide mononitrate ER 30 mg Tablet 15 MG PO (08:26)
[2021-06-18] MEDS: pantoprazole DR 40 mg Tablet PO (08:26)
[2021-06-18] MEDS: loratadine 10 mg Tablet PO (08:26)
[2021-06-18] MEDS: carvedilol 25 mg Tablet PO (08:26)
[2021-06-18] MEDS: clopidogrel 75 mg Tablet PO (08:27)
[2021-06-18] MEDS: amlodipine 5 mg Tablet PO (08:27)
[2021-06-18] MEDS: aspirin 325 mg Tablet PO (08:27)
[2021-06-18 10:59] VITALS: BP 182/74; PULSE 61; RESP 17; TEMP 36.9; O2SAT 95
--- NOTE | 2021-06-18 12:32 | PC.NURSE ---
Discharge Note Patient discharged to Home via private vehicle accompanied by spouse. Discharge instructions reviewed with patient and/or bank representative. Mobile pharmacy medications and/or prescriptions provided. Belongings/home medications returned.
--- NOTE | 2021-06-18 12:34 | P.DS_ITS ---
Discharge Providers Date of Discharge: June 18, 2021 Attending Provider at Discharge: Robert Duarte MD Primary Care Provider: Joce Hodge MD Diagnoses at Discharge Discharge Diagnosis (1) CAD (coronary artery disease): Status: Acute Qualifiers: Associated angina: without angina Coronary Disease-Associated Artery/Lesion type: [place] artery [place] vs. transplanted heart: [place] heart Qualified Code(s): I25.10 - Atherosclerotic heart disease of [place] coronary artery without angina pectoris (2) Essential hypertension: Status: Acute (3) Renal failure (ARF), acute on chronic: Status: Acute Reason for Visit Reason for Visit: 50545 r94.39 Hospital Course Hospital Course For worsening of shortness of breath chest pressure and unstable anginal-like picture despite optimization of medicine patient was brought in yesterday for left heart cath. Patient was noted to have normal left main 90% ostial circumflex 75% mid LAD for which IFR was performed which turned out to be significant at 0.81, RCA was 100% occluded. SVG to RCA was patent SVG to nondominant circumflex was occluded. CASILLAS was not used. Mid LAD was treated with drug-eluting stent for significant IFR (0.81). Post PCI patient did fine no overnight event. He is stable vital hooper and will be discharged home. Physical Exam Narrative: EXAM NARRATIVE: GENERAL: Patient is alert, awake and oriented x3. NECK: No jugular vein distension. HEENT: No cyanosis. No icterus. No pallor. HEART: Regular S1 and S2. No murmur, rub or gallop. LUNGS: Expiratory wheeze bilaterally. ABDOMEN: Soft, nontender and nondistended. Positive bowel sounds. No guarding, rebound or tenderness. CENTRAL NERVOUS SYSTEM: Grossly nonfocal. EXTREMITIES: Lower extremities without edema bilaterally. Pulses palpable in the lower extremities, both dorsalis pedis and posterior tibial. Const: COMMON NORMALS: alert Resp: COMMON NORMALS: clear to auscultation bilaterally AUSCULTATION: clear to auscultation bilaterally Neuro: SENSORIUM/ORIENTATION: Yes alert Discharge Data Data Completed and Pending: Pending at discharge Category Date Time Status WILDLIFE POLICY PROFESSIONAL request for service Routin e Exams 06/17/21 06:32 Taken Labs from last 24 hours 06/18/21 06/18/21 06/18/21 06:29 03:07 03:07 WBC 13.0 H RBC 4.65 Hgb 13.6 Hct 43.1 MCV 92.7 MCH 29.2 MCHC 31.6 RDW 13.8 Plt Count 294 MPV 10.2 Neut % (Auto) 76.8 Lymph % (Auto) 12.4 [place] % (Auto) 7.2 Eos % (Auto) 2.9 Baso % (Auto) 0.3 Neut # (Auto) 9.97 H Lymph # (Auto) 1.6 [place] # (Auto) 0.9 Eos # (Auto) 0.4 Baso # (Auto) 0.0 Nucleated RBC % (a uto) 0 Nucleated RBCs # 0.0 APTT Sodium 140 Potassium 3.8 Chloride 105 Carbon Dioxide 24 Anion Gap 14.8 BUN 23 Creatinine 1.7 H GFR Calculation 40.4 L Glucose 135 H POC Glucose 164 H Calculated Osmolal ity 296 H Calcium 7.8 L 06/17/21 06/17/21 06/17/21 19:40 16:40 13:00 WBC RBC Hgb Hct MCV MCH MCHC RDW Plt Count MPV Neut % (Auto) Lymph % (Auto) [place] % (Auto) Eos % (Auto) Baso % (Auto) Neut # (Auto) Lymph # (Auto) [place] # (Auto) Eos # (Auto) Baso # (Auto) Nucleated RBC % (a uto) Nucleated RBCs # APTT 34.0 D Sodium Potassium Chloride Carbon Dioxide Anion Gap BUN Creatinine GFR Calculation Glucose POC Glucose 215 H 254 H Calculated Osmolal ity Calcium Vitals: Last Vital Signs Temp 98.4 F 06/18/21 10:59 Pulse 61 06/18/21 10:59 Resp 17 06/18/21 10:59 BP 182/74 06/18/21 10:59 Pulse Ox 95 06/18/21 10:59 Discharge Plan Discharge Patient Disposition: Home Prescriptions: New clopidogrel 75 mg Tablet 75 mg PO DAILY Qty: 90 RF: 4 Continued loratadine [Loradamed] 10 mg tablet 10 mg PO DAILY RF: 0 chlorthalidone 25 mg tablet 25 mg PO DAILY Qty: 90 RF: 3 Hold Instructions: Doctor's Order Gas Relief (simethicone) 250 mg capsule 250 mg PO BID PRN (Reason: Abdominal Discomfort) RF: 0 pantoprazole 40 mg tablet,delayed release (DR/EC) 40 mg PO DAILY Qty: 90 RF: 3 isosorbide mononitrate 30 mg tablet extended release 24 hr 15 mg PO BID Qty: 90 RF: 3 nitroglycerin [Nitrostat] 0.4 mg tablet, sublingual 0.4 mg sublingual Q5M PRN (Reason: chest pain) Qty: 25 RF: 3 blood sugar diagnostic [OneTouch Ultra Blue Test Strip] Strip See Rx Instructions .ROUTE .COMPLEX Qty: 100 RF: 9 metformin 1,000 mg tablet 1,000 mg PO BID Qty: 180 RF: 3 clonidine HCl 0.2 mg tablet 0.2 mg PO BID Qty: 60 RF: 3 tizanidine 4 mg tablet 4 mg PO BID RF: 0 Changed Aamir Aspirin 325 mg tablet 81 mg PO DAILY Qty: 90 RF: 4 No Action carvedilol 25 mg tablet 12.5 mg PO BID Qty: 180 RF: 3 hydralazine 10 mg tablet 10 mg PO BID Qty: 180 RF: 3 amlodipine 5 mg tablet See Rx Instructions .ROUTE .COMPLEX Qty: 180 RF: 1 rosuvastatin 5 mg tablet 5 mg PO DAILY Qty: 30 RF: 5 glimepiride 4 mg tablet 4 mg PO BID Qty: 180 RF: 3 Referrals: Robert Duarte MD [Physician] - (You have a follow up appointment with Dr duarte on July 21 at 3:30Pm If you can not keep this arrangement please contact [facility] to arrange your follow up care. ) Stacey Boone FNP [Nurse Practitioner] - (You have a follow up appointment with MARIBEL Melton on WednesdayJune 25 at 8:15. If you can not keep this arrangement please contact [facility] to arrange your follow up care. ) Diet: Cardiac Activity: Increase activity as tolerated Patient Instructions: Coronary Angioplasty (DC), Left Heart Catheterization (DC), Post Angiogram Home Care Instructions Activity Restrictions/Additional Instructions: Patient has been advised to continue Plavix and aspirin at least for 1 year after that we will determine whether he has to continue dual antiplatelet the rapy. Follow-up with Ms. Stacey Boone in 6 to 7 days. Follow-up with Dr. Duarte in 6 to 8 weeks. Discharge Date/Time: 06/18/21 12:32 Discharge Attestations Time Spent in Discharge Care*: less than 30 min Specific Discharge Activities: educating patient Quality Metrics Clinical Quality Measures During this hospital stay, did patient experience: None Coding Level of Care Code Established Pt Acute Chg FW DC note Patient Type Established History Detailed Exam Detailed Medical Decision Making Moderate Complexity Diagnoses CAD (coronary artery disease) I25.10 Associated angina: without angina Coronary Disease-Associated Artery/Lesion type: [place] artery [place] vs. transplanted heart: [place] heart Essential hypertension I10 Renal failure (ARF), acute on chronic N17.9; N18.9
[2021-06-18 12:48] LABS: Glucose Point of Care 238 mg/dL (70-110)
== END 2021-06-18 12:32 | disposition home or self-care (01) ==
LOC: CCL 07:11 → CSU 15:10
PROVIDERS: PCP Internal Medicine; Visit Provider Internal Medicine Cardiovascular Disease
DX: R06.02 Shortness of breath (principal); R94.39 Abnormal result of other cardiovascular function study; I25.10 Atherosclerotic heart disease of native coronary artery without angina pectoris; N17.9 Acute kidney failure, unspecified; N18.9 Chronic kidney disease, unspecified; I13.10 Hypertensive heart and chronic kidney disease without heart failure, with stage 1 through stage 4 chronic kidney disease, or unspecified chronic kidney disease
CPT/HCPCS: 36415; 36416; 80048; 82962; 85025; 85347; 85730; 93455; 93571; 96372; C1725; C1769; C1874; C1887; C1894; C9600; J0153; J0360; J1644; J1815; J1940; J2250; J3010; J3246; J3490; J7030; Q0163; Q9967

== ENCOUNTER → 2021-06-25 09:17 | Outpatient (BNVA) | payer MEDICARE, SELFPAY | PROVIDERS: PCP Internal Medicine; Visit Provider Nurse Practitioner Family | DX: I25.10 Atherosclerotic heart disease of native coronary artery without angina pectoris (principal) | CPT/HCPCS: 80048 ==

== ENCOUNTER 2021-07-14 20:32 | Observation (INO) | payer MEDICARE, SELFPAY ==
[2021-07-14 20:39] VITALS: BP 216/69; PULSE 108; RESP 18; TEMP 36.9; O2SAT 98; BMI 27.9
--- NOTE | 2021-07-14 20:53 | ECG_ITS ---
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: : 1955 Requested By: Phil Mason Order Number: [id number] Reading MD: ELIZABETH GONZALEZ Measurements Intervals [place] Rate: 102 P: 84 MS: 134 QRS: 24 QRSD: 108 T: 87 QT: 333 QTc: 434 Interpretive Statements SINUS TACHYCARDIA Inferolateral ST depression cannot rule out ischemia could be nonspecific ABNORMAL RHYTHM ECG Compared to ECG 12/31/2020 05:48:38 T-wave abnormality now present Sinus bradycardia no longer present Myocardial infarct finding no longer present Electronically Signed On 07-15-2021 20:03:04 SLIVER MACHINE OPERATOR by ELIZABETH GONZALEZ [email or web address]
--- NOTE | 2021-07-14 21:05 | W.ED.GENADLT ---
HPI - General Adult General: Chief complaint: Chest Pain Stated complaint: CP Time Seen by Provider: 07/14/21 20:40 History of Present Illness: HPI narrative: CC: Chest Pain HPI: This is a [66]yo patient hx of recent LAD stent from 06/16/2021, CABG presenting to the ED complaining of acute sudden onset intermittent sharp chest pain x 8 hrs. Not associated with shortness of breath, chest pain on exertion or dyspnea on exertion. Pain is not tearing in nature and does not radiate to the back. Pain not associated with vomiting or PO intake. Denies any recent sympathomimetic drug use. Patient denies any cough. Denies palpitations, dysphagia, diaphoresis, radiation of pain to bilateral arms, jaw. Denies F/N/V/D. Patient denies any recent immobility, surgery, unilateral leg swelling, or prior PE. Patient denies any orthopnea. Per cath report from 1 month ago, patient was found to have significant mid-LAD occlusion that was stented and a distal LAD occlusion that is currently medically managed. Onset: 8 hrs ago Duration: ongoing for the last 8 hrs Location: home Severity: mild/moderate Review of Systems Narrative: Constitutional: No fever, no chills. HEENT: No vision changes, no sore throat. CV: +chest pain, no palpitations. PULM: No cough, No dyspnea. GI: No abdominal pain, no N/V/D. : No dysuria, no frequency, no hematuria. MSKEL: No arthralgias, no edema. SKIN: No new rashes, no lesions. NEURO: No headache, no focal weakness. HEME: No easy bleeding or bruising. PSYCH: No change in mood or affect. PFS ED PFSH: Medical History (Updated 07/14/21 @ 21:08 by Phil Mason MD) CAD (coronary artery disease) Diabetes 1.5, managed as type 1 Essential hypertension Hypercholesterolemia Renal failure (ARF), acute on chronic Surgical History History of appendectomy Hx of CABG Family History Father Cancer Other Diabetes Social History Alcohol intake: current Alcohol intake frequency: few times a month Marital status: Number of children: 2 service: No History of recent travel: No Current gender identity: Male Physical Exam Narrative: EXAM NARRATIVE: Head: Atraumatic, normocephalic Eyes: PERRL, EOMI, conjunctiva without injection ENT: Throat without erythema, lesions or exudate, MMM NECK: Supple, trachea midline, no JVD LUNGS: LCTA CV: RRR, S1,S2, no murmurs, rubs, gallops. 2+ peripheral pulses in UEs ABDOMEN: Soft, nontender, nondistended, BS x4, no rigidity, no guarding, no rebound EXTREMITY: Normal ROM, no pitting edema, no calf tenderness to palpation SKIN: No rash or erythema NEURO: Awake and alert. No focal motor deficits. PSYCH: Normal mood and affect. Course Vital Signs: Vital signs: Vital Signs Temperature 98.5 F 07/14/21 20:39 Pulse Rate 108 H 07/14/21 20:39 Respiratory Rate 18 07/14/21 20:39 Blood Pressure 216/69 07/14/21 20:39 Pulse Oximetry 98 07/14/21 20:39 MDM - General Adult MDM Narrative: Medical decision making narrative: [66]yo patient w/ hx of CABG, recent LAD stent on 06/16 presenting to the ED with evaluation of new onset sharp chest pain lasting 8 hrs. Currently chest pain free. HDS, pulse 2+ radially bilaterally, no signs of fluid overload, AAOx3, neuro exam intact. Given History and Exam today I have no suspicion for ACS, Pneumothorax, Pneumonia, Aortic Dissection or other emergent problems as a cause for this presentation. Workup: ECG, CXR, CBC, BMP, Troponin x2, Findings: NAZ in aVR and V1, and diffuse STD, sinus tachycardia, NSR dcompared to prior EKG in 12/2020 [9:06pm] Case was discussed emergently with Dr. King and these findings and recent LAD stent, Dr. Talavera thinks that this is likely related to distal LAD stenosis visualized on cath report from prior Dr. King recommended inpatient admission and he will see the patient tomorrow morning. Troponin x 1 of 51. Pending Dimer. S/p ASA and lovenox. Disposition: Admission with close follow-up Lab Data: Labs: Lab Results 07/14/21 07/14/2107/14/21 22:43 22:43 22:43 WBC 11.4 10^3/uL H 10 ^3/uL (4.0-10.0) RBC 4.42 10^6/uL 10^6 /uL (4.1-5.3) Hgb 13.1 g/dL g/dL (11.7-16.6) Hct 42.1 % % (42.0-52.0) MCV 95.2 fl H fl (80-94) MCH 29.6 pg pg (28.0-34.0) MCHC 31.1 g/dL g/dL (30.0-36.0) RDW 14.0 % % (12.1-15.1) Plt Count 316 10^3/cmm 10^3 /cmm (130-400) MPV 10.0 fL fL (7.4-10.4) Neut % (Auto) 76.2 % % Lymph % (Auto) 13.2 % % [place] % (Auto) 8.1 % % Eos % (Auto) 1.7 % % Baso % (Auto) 0.4 % % Neut # (Auto) 8.71 10^3/uL H 10 ^3/uL (1.8-7.7) Lymph # (Auto) 1.5 10^3/uL 10^3/ uL (0.8-4.8) [place] # (Auto) 0.9 10^3/uL 10^3/ uL (0.2-0.9) Eos # (Auto) 0.2 10^3/uL 10^3/ uL (0.0-0.8) Baso # (Auto) 0.1 10^3/uL 10^3/ uL (0.0-0.1) Nucleated RBC % (a uto) 0 % % Nucleated RBCs # 0.0 /100WBC /100W BC PT 11.40 SECONDS L S ECONDS (12.1-14.9) INR 0.80 (0.8-1.2) APTT 30.5 SECONDS SECO NDS (23.9-36.7) Sodium 143 mmol/L mmol/L (136-145) Troponin T Baselin e 07/14/21 22:43 WBC RBC Hgb Hct MCV MCH MCHC RDW Plt Count MPV Neut % (Auto) Lymph % (Auto) [place] % (Auto) Eos % (Auto) Baso % (Auto) Neut # (Auto) Lymph # (Auto) [place] # (Auto) Eos # (Auto) Baso # (Auto) Nucleated RBC % (a uto) Nucleated RBCs # PT INR APTT Sodium Troponin T Baselin e 51 ng/L H ng/L (0-15) Discharge Plan Discharge Patient Disposition: Admitted As Inpatient Clinical Impression: Chest pain Condition: Stable Coding Level of Care Code ED It Operations Specialist for [facility]
[2021-07-14 22:54] LABS: Basophils # 0.1 10^3/uL (0.0-0.1); Basophils % 0.4 %; Eosinophils # 0.2 10^3/uL (0.0-0.8); Eosinophils % 1.7 %; Hematocrit 42.1 % (42.0-52.0); Hemoglobin 13.1 g/dL (11.7-16.6); Lymphocytes # 1.5 10^3/uL (0.8-4.8); Lymphocytes % 13.2 %; Mean Corpuscular HGB Conc 31.1 g/dL (30.0-36.0); Mean Corpuscular Hemoglobin 29.6 pg (28.0-34.0); Mean Corpuscular Volume 95.2 fl (80-94); Monocytes # 0.9 10^3/uL (0.2-0.9); Monocytes % 8.1 %; Neutrophils # 8.71 10^3/uL (1.8-7.7); Neutrophils % 76.2 %; Nucleated Red Blood Cells % 0 %; Platelet Count 316 10^3/cmm (130-400); Red Blood Count 4.42 10^6/uL (4.1-5.3); White Blood Count 11.4 10^3/uL (4.0-10.0)
[2021-07-14 23:11] LABS: Partial Thromboplastin Time 30.5 SECONDS (23.9-36.7)
[2021-07-14 23:14] LABS: Troponin(5th) Baseline 51 ng/L (0-15)
[2021-07-14 23:16] LABS: Blood Urea Nitrogen 29 mg/dL (8-23); Carbon Dioxide 21 mmol/L (22-29); Chloride 109 mmol/L (98-107); Glomerular Filtration Rate 43.3 mL/min (90-130); Glucose 136 mg/dL (65-115); Osmolality Calculated 304 mOsm/kg (285-295); Sodium 143 mmol/L (136-145)
[2021-07-14 23:33] LABS: Anion Gap 18.1 (5-19); Potassium 5.1 mmol/L (3.5-5.1)
[2021-07-14] MEDS: enoxaparin 80 mg/0.8 mL Syringe 70 MG SUBCUT (23:55)
[2021-07-15] VITALS (32 sets, daily range): BP systolic 159–193; BP diastolic 68–77; PULSE 71–90; RESP 12–32; TEMP 36.6; O2SAT 88–100
[2021-07-15 00:08] LABS: D Dimer 0.52 ug/mIFEU (0-0.59)
[2021-07-15 00:56] LABS: Troponin 5 2HR 78.65 ng/L (0-15)
[2021-07-15 00:57] LABS: Troponin 5 2HR Delta 27.65 ABS# (0-10)
[2021-07-15 05:07] LABS: Basophils % 0.5 %; Eosinophils # 0.2 10^3/uL (0.0-0.8); Eosinophils % 2.4 %; Hematocrit 40.6 % (42.0-52.0); Hemoglobin 12.7 g/dL (11.7-16.6); Lymphocytes # 1.7 10^3/uL (0.8-4.8); Lymphocytes % 19.4 %; Mean Corpuscular HGB Conc 31.3 g/dL (30.0-36.0); Mean Corpuscular Hemoglobin 29.8 pg (28.0-34.0); Mean Corpuscular Volume 95.3 fl (80-94); Mean Platelet Volume 10.4 fL (7.4-10.4); Monocytes # 0.8 10^3/uL (0.2-0.9); Monocytes % 8.7 %; Neutrophils # 6.09 10^3/uL (1.8-7.7); Neutrophils % 68.7 %; Nucleated Red Blood Cells % 0 %; Platelet Count 283 10^3/cmm (130-400); Red Blood Count 4.26 10^6/uL (4.1-5.3); Red Cell Distribution Width 13.8 % (12.1-15.1); White Blood Count 8.9 10^3/uL (4.0-10.0)
[2021-07-15 05:26] LABS: Troponin 5 6HR 126.7 ng/L (0-15); Troponin 5 6HR Delta 75.7 ng/L (0-12)
[2021-07-15 05:31] LABS: Alkaline Phosphatase 78 IU/L (40-130); Blood Urea Nitrogen 25 mg/dL (8-23); Calcium 7.9 mg/dL (8.5-10.5); Carbon Dioxide 22 mmol/L (22-29); Chloride 106 mmol/L (98-107); Creatinine Clr Calc Pharmacy 38.8226; Globulin 2.9 g/dL (1.3-4.6); Glomerular Filtration Rate 40.4 mL/min (90-130); Glucose 111 mg/dL (65-115); Osmolality Calculated 297 mOsm/kg (285-295); Sodium 141 mmol/L (136-145); Total Bilirubin 0.2 mg/dL (0.15-1.2); Total Protein 5.9 g/dL (6.6-8.7)
[2021-07-15 05:32] LABS: Alanine Aminotransferase 15 U/L (0-41); Aspartate Amino Transferase 27 U/L (0-40)
--- NOTE | 2021-07-15 06:27 | PM.HP ---
Providers/Chief Complaint Admitting Physician: Dorcas Fenton MD Primary Care Provider: Joce Hodge MD Chief Complaint: CP History of Present Illness Luis Alfredo Thompson is a 66 year old male with history of coronary artery disease who follows with Dr. King. He underwent arteriogram with balloon angioplasty and drug-eluting stent to the mid LAD recently. He presented to the emergency room with chief complaint of chest discomfort which he described ultimately as very prominent palpitations, where he could feel his heart beating throughout his entire chest. It was not associated with any nausea or vomiting, diaphoresis nor shortness of breath. EKG was done in the emergency room that showed some ST depression in several leads and initial troponin was elevated at 50 with subsequent troponin elevation to 70s. He is currently wearing a event monitor. He has had multiple episodes with symptomatic dizziness that have been captured. He has had some episodes of bradycardia at times with significant pause up to 4.7 seconds (x2 episodes on July 09) which is the longest I could see in a quick review of multiple reports that have been entered in the last couple of weeks. Also noted was at least 1 run of V. tach lasting 8-10 beats though no sustained runs I could see. Despite these previous episodes that have been captured he did not have the same degree of palpitations with any of these other events. It is that differentiation of the palpitations that prompted him to come in today. ED physician discussed the case with Dr. King. He agreed to see Mr. Thompson in consultation. Mr. Thompson received a dose of Lovenox and is being admitted for further evaluation and treatment. Review of Systems Const: Denies: fever(s) or chills ENMT: Denies: throat pain or nasal congestion Card: Reports: chest pain, palpitations and edema Resp: Reports: dyspnea; Denies: productive cough or non-productive cough GI: Denies: abdominal pain, nausea, vomiting, diarrhea or constipation : Reports: nocturia Musc: Denies: extremity pain Skin/Breast: Denies: rash or sores Neuro: Denies: headache(s), numbness in extremities, weakness in extremities or difficulty walking Psych: Reports: anxiety; Denies: depression Nura/Lymph: Denies: easy bruising or easy bleeding Medications/Allergies Home Medications Medication Instructions Recorded Confirmed Last Taken Type blood sugar diagnostic See Rx Instructions .ROUTE 03/15/20 07/15/21 Unknown Rx .COMPLEX #100 strip metformin 1,000 mg tablet 1,000 mg PO BID #180 tab 09/02/20 07/15/21 06/14/21 21:00 Rx loratadine 10 mg tablet 10 mg PO DAILY 09/12/20 07/15/21 06/15/21 08:00 History clonidine HCl 0.2 mg tablet 0.2 mg PO BID #60 tab 03/21/21 07/15/21 06/15/21 21:00 Rx isosorbide mononitrate 30 mg 15 mg PO BID #90 tab 04/18/21 07/15/21 06/16/21 06:30 Rx tablet,extended release 24 hr nitroglycerin 0.4 mg sublingual 0.4 mg SUBLINGUAL Q5M PRN #25 tab 04/18/21 07/15/21 Unknown Rx tablet pantoprazole 40 mg tablet,delayed 40 mg PO DAILY #90 tab 04/18/21 07/15/21 06/15/21 08:00 Rx release simethicone 250 mg capsule 250 mg PO BID PRN 04/18/21 07/15/21 06/15/21 21:00 History tizanidine 4 mg PO BID 06/16/21 07/15/21 06/15/21 21:00 History aspirin [Aamir Aspirin] 81 mg PO DAILY #90 tab 06/18/21 07/15/21 06/16/21 06:30 Rx clopidogrel 75 mg PO DAILY #90 tab 06/18/21 07/15/21 Unknown Rx amlodipine 5 mg tablet See Rx Instructions .ROUTE 06/26/21 07/15/21 Unknown Rx .COMPLEX #180 tab glimepiride 4 mg tablet 4 mg PO BID #180 tab 06/26/21 07/15/21 Unknown Rx rosuvastatin 5 mg tablet 5 mg PO DAILY #30 tab 06/26/21 07/15/21 Unknown Rx hydralazine 50 mg tablet 75 mg PO TID #405 tab 07/10/21 07/15/21 Unknown Rx albuterol sulfate [ProAir HFA] 2 puff INHALATION BID 07/15/21 07/15/21 Unknown History Allergies Allergy/AdvReac Type Severity Reaction Status Date / Time Penicillins Allergy Unknown Verified 07/14/21 20:48 PFSH Acute PFSH: Medical History (Updated 07/15/21 @ 07:25 by Dorcas Fenton MD) CAD (coronary artery disease) Chronic kidney disease Diabetes mellitus, type II Essential hypertension Hypercholesterolemia Surgical History (Updated 07/15/21 @ 07:32 by Dorcas Fenton MD) History of appendectomy History of coronary artery stent placement Hx of CABG Family History Father Cancer Other Diabetes Social History (Updated 07/15/21 @ 07:33 by Dorcas Fenton MD) Smoking and tobacco status: current every day smoker cigarettes Packs smoked per day: 1 Alcohol intake: current Alcohol intake frequency: few times a month Substance/Drug Use: never Marital status: Number of children: 2 service: No Current gender identity: Male Vitals/I&O/Wt Last Vital Signs Temp 98.5 F 07/14/21 20:39 Pulse 78 07/15/21 05:45 Resp 18 07/15/21 05:45 BP 159/68 07/15/21 05:45 Pulse Ox 98 07/15/21 05:45 Weight last 48 hrs Weight 73.936 kg Physical Exam Narrative: EXAM NARRATIVE: Constitutional: Asleep, easily arousable, chronic ill appearance, cooperative HEENT: Normocephalic, extraocular movements are intact, nasopharynx is clear, oropharynx with slightly dry mucous membranes Neck: Supple Respiratory: Clear to auscultation bilaterally without any wheezes rales or rhonchi noted Cardiovascular: Regular rhythm, no murmurs or gallops, 1+ pulses radial and posterior tibialis Abdomen: Soft, nontender, positive bowel sounds Extremities: 2+ edema bilateral lower extremities, nontender Skin: Dry, no acute rashes Neuro: Speech clear, face symmetric, handgrip equal Psych: Normal affect Data : 07/15/21 04:38 07/15/21 04:38 Other Labs: Laboratory Tests 07/14/21 07/15/21 22:43 00:27 Troponin T Baseline 51 H Troponin T 120 Minute 78.65 H Delta Troponin T 27.65 H* A&P Assessment and plan (1) Palpitations: With chest discomfort Status: Acute (2) Elevated troponin: Suggestive of non-ST elevation GA in a patient with recent coronary intervention and other lesions not amenable to intervention Status: Acute (3) Sinus pause: Noted on event monitor reports up to 4.7 seconds in duration Status: Acute (4) CAD (coronary artery disease): Status: Chronic Qualifiers: Coronary Disease-Associated Artery/Lesion type: [place] artery [place] vs. transplanted heart: [place] heart Associated angina: with other forms of angina Qualified Code(s): I25.118 - Atherosclerotic heart disease of [place] coronary artery with other forms of angina pectoris (5) Essential hypertension: Status: Chronic (6) Chronic kidney disease: Status: Chronic Qualifiers: Chronic kidney disease stage: stage 3 (moderate) Chronic kidney disease stage 3 subtype: stage 3a (GFR 45-59) Qualified Code(s): N18.31 - Chronic kidney disease, stage 3a (7) Diabetes mellitus, type II: Status: Chronic Qualifiers: Diabetes mellitus mcfp insulin use: without mcfp use Diabetes mellitus complication status: with kidney complications Diabetes mellitus complication detail: with chronic kidney disease Chronic kidney disease stage: stage 3 (moderate) Chronic kidney disease stage 3 subtype: stage 3a (GFR 45-59) Qualified Code(s): E11.22 - Type 2 diabetes mellitus with diabetic chronic kidney disease; N18.31 - Chronic kidney disease, stage 3a Additional A&P Information Observation admission Continue serial cardiac enzymes Cardiology consultation with Dr. Fernando Hamilton at treatment dose for now Keep n.p.o. for possibility of cardiac intervention again Low volume IV fluids for now Monitor renal function and volume status for changes Check proBNP Given degree of edema may consider a dose of diuretics Continue home medications as ordered including isosorbide, hydralazine, amlodipine, clonidine Not on beta-blockade secondary to recent sinus pauses, symptomatic noted on event monitoring Continue aspirin and statin as well as Plavix Continue home PPI Sliding scale insulin for diabetes currently with Metformin and glimepiride held Supportive care otherwise Treatment dose Lovenox provides VTE prophylaxis, will add SCDs as well Findings, concerns and plans were discussed with patient and to a lesser degree with his , both were given an opportunity to ask questions Anticipate discharge home with close outpatient follow-up once medically stable Full code Attestations Medical Necessity Statement*: Currently anticipate a stay less than two midnights in gentleman with known recent cardiac intervention presenting with symptoms as described with elevated troponin. Given known lesion not amendable to intervention will likely be for medical management though depending on clinical course may require repeat intervention. Current plans are as indicated. 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 transplanted heart: [place] heart Associated angina: with other forms of angina Essential hypertension I10 Chronic kidney disease N18.31 Chronic kidney disease stage: stage 3 (moderate) Chronic kidney disease stage 3 subtype: stage 3a (GFR 45-59) Diabetes mellitus, type II E11.22; N18.31 Diabetes mellitus mcfp insulin use: without computer terminal operator use Diabetes mellitus complication status: with kidney complications Diabetes mellitus complication detail: with chronic kidney disease Chronic kidney disease stage: stage 3 (moderate) Chronic kidney disease stage 3 subtype: stage 3a (GFR 45-59)
--- NOTE | 2021-07-15 07:35 | ECG_ITS ---
[facility] Test Date: 2021-07-15 Pat Name: Luis Alfredo Thompson Department: Room: EDIP Gender: Male Alignment Technician: : 1955 Requested By: Dorcas Fenton Order Number: [id number] Reading MD: ELIZABETH GONZALEZ Measurements Intervals [place] Rate: 76 P: -7 KS: 163 QRS: 35 QRSD: 112 T: -26 QT: 369 QTc: 417 Interpretive Statements SINUS RHYTHM LOW QRS VOLTAGE IN EXTREMITY LEADS [QRS DEFLECTION < 0.5 mV IN LIMB LEADS] LATERAL MYOCARDIAL INFARCTION , OF INDETERMINATE AGE [40+ ms Q WAVE AND/OR ST/T ABNORMALITY IN I/aVL/V5/V6] Compared to ECG 07/14/2021 20:36:57 Low QRS voltage now present Myocardial infarct finding now present Sinus tachycardia no longer present T-wave abnormality no longer present Electronically Signed On 07-15-2021 19:59:07 LABEL SEWER by ELIZABETH GONZALEZ [id number]
[2021-07-15 07:46] LABS: NT Pro B Type Natriuretic Pept 1780 pg/mL (0-125)
[2021-07-15] MEDS: sodium chloride 0.45% 1,000 ML 75 ML IV (07:52)
--- NOTE | 2021-07-15 08:02 | P.CONIM_ITS ---
Providers/Reason For Consult Consulting Physician/Specialty*: Cardiology Reason for Consult*: Non-ST elevation HI Attending Physician: Gian Downs Primary Care Provider: Joce Hodge MD History of Present Illness History of Present Illness Luis Alfredo Thompson is a 66 year old male past medical history significant for multivessel coronary artery disease hypertension hyperlipidemia chronic kidney disease diabetes mellitus who recently underwent mid LAD stent after discharge from the hospital did fine for a while last night he came back with chest pain he was noted to have worsening of renal function and increased troponin suggestive of non-ST elevation HI. After treating him as per ACS protocol he became chest pain-free. Twelve-lead EKG was suggestive of inferolateral ST depression which later resolved. Recent angiogram was consistent with normal left main mid LAD significant disease which was treated with drug-eluting stent diagonal has moderate lesion thought not to be significant,left circumflex was nondominant small caliber vessel with calcified multiple ostial to mid lesions thought to be managed medically, RCA was known to be chronically occluded SVG to RCA was patent SVG to circumflex was known to be occluded CASILLAS was never used. Currently he is chest pain-free denies PND orthopnea creatinine is 1.7 which has worsened from baseline of 1.6. Review of Systems Narrative: Constitutional: No fever, no chills. HEENT: No vision changes, no sore throat. CV: +chest pain, no palpitations. PULM: No cough, No dyspnea. GI: No abdominal pain, no N/V/D. : No dysuria, no frequency, no hematuria. MSKEL: No arthralgias, no edema. SKIN: No new rashes, no lesions. NEURO: No headache, no focal weakness. HEME: No easy bleeding or bruising. PSYCH: No change in mood or affect. Const: Denies: fever(s) or chills ENMT: Denies: throat pain or nasal congestion Card: Reports: chest pain, palpitations and edema Resp: Reports: dyspnea; Denies: productive cough or non-productive cough GI: Denies: abdominal pain, nausea, vomiting, diarrhea or constipation : Reports: nocturia Musc: Denies: extremity pain Skin/Breast: Denies: rash or sores Neuro: Denies: headache(s), numbness in extremities, weakness in extremities or difficulty walking Psych: Reports: anxiety; Denies: depression Nura/Lymph: Denies: easy bruising or easy bleeding Meds/Allergies Home Medications and Allergies Home Medications Medication Instructions Recorded Confirmed Last Taken Type blood sugar diagnostic See Rx Instructions .ROUTE 03/15/20 07/15/21 Unknown Rx .COMPLEX #100 strip metformin 1,000 mg tablet 1,000 mg PO BID #180 tab 09/02/20 07/15/21 06/14/21 21:00 Rx loratadine 10 mg tablet 10 mg PO DAILY 09/12/20 07/15/21 06/15/21 08:00 History isosorbide mononitrate 30 mg 15 mg PO BID #90 tab 04/18/21 07/15/21 06/16/21 06:30 Rx tablet,extended release 24 hr nitroglycerin 0.4 mg sublingual 0.4 mg SUBLINGUAL Q5M PRN #25 tab 04/18/21 07/15/21 Unknown Rx tablet pantoprazole 40 mg tablet,delayed 40 mg PO DAILY #90 tab 04/18/21 07/15/21 06/15/21 08:00 Rx release simethicone 250 mg capsule 250 mg PO BID PRN 04/18/21 07/15/21 06/15/21 21:00 History clopidogrel 75 mg PO DAILY #90 tab 06/18/21 07/15/21 Unknown Rx glimepiride 4 mg tablet 4 mg PO BID #180 tab 06/26/21 07/15/21 Unknown Rx rosuvastatin 5 mg tablet 5 mg PO DAILY #30 tab 06/26/21 07/15/21 Unknown Rx hydralazine 50 mg tablet 75 mg PO TID #405 tab 07/10/21 07/15/21 Unknown Rx albuterol sulfate [ProAir HFA] 2 puff INHALATION BID PRN 07/15/21 07/15/21 Unknown History amlodipine 5 mg PO BID 07/15/21 07/15/21 Unknown History ascorbic acid (vitamin C) [Vitamin 500 mg PO DAILY 07/15/21 07/15/21 Unknown History C] aspirin [Aspir-81] 81 mg PO QAM 07/15/21 07/15/21 Unknown History calcium carbonate 500 mg PO PRN PRN 07/15/21 07/15/21 Unknown History clonidine HCl 0.2 mg PO BID 07/15/21 07/15/21 Unknown History tizanidine 4 mg PO QAM 07/15/21 07/15/21 Unknown History vitamin E 400 unit PO DAILY 07/15/21 07/15/21 Unknown History Allergies Allergy/AdvReac Type Severity Reaction Status Date / Time Penicillins Allergy Unknown Verified 07/14/21 20:48 Current Medications Current Medications Generic Name Dose Route Start Last Admin Trade Name Freq PRN Reason Stop Dose Admin Sodium Chloride 1,000 mls @ 75 mls/hr 07/15/21 06:45 07/15/21 07:52 Sodium Chloride 0.45% IV 07/15/21 20:04 75 mls/hr .[id number] SUNSHINE Administration PFSH Acute PFSH: Medical History (Updated 07/15/21 @ 20:43 by Robert King MD) CAD (coronary artery disease) Chronic kidney disease Diabetes mellitus, type II Essential hypertension Hypercholesterolemia Surgical History (Updated 07/15/21 @ 07:32 by Dorcas Fenton MD) History of appendectomy History of coronary artery stent placement Hx of CABG Family History Father Cancer Other Diabetes Social History (Updated 07/15/21 @ 07:33 by Dorcas Fenton MD) Smoking and tobacco status: current every day smoker cigarettes Packs smoked per day: 1 Alcohol intake: current Alcohol intake frequency: few times a month Substance/Drug Use: never Marital status: Number of children: 2 service: No Current gender identity: Male Dietary Habits: Current diet type/program: regular and diabetic Caffeine: Yes Exercise: What type of physical activity do you participate in?: none Safety: Seatbelt use: always Home Safety: Working smoke detector in home: Yes Fire extinguisher in home: No Carbon monoxide detector in home: No Vitals/I&O/Wt Last Vital Signs Temp 98.5 F 07/14/21 20:39 Pulse 86 07/15/21 07:46 Resp 18 07/15/21 07:46 BP 159/68 07/15/21 05:45 Pulse Ox 96 07/15/21 07:46 Weight last 48 hrs Weight 163 lb Physical Exam Narrative: EXAM NARRATIVE: GENERAL: Patient is alert, awake and oriented x3. NECK: No jugular vein distension. HEENT: No cyanosis. No icterus. No pallor. HEART: Regular S1 and S2. No murmur, rub or gallop. LUNGS: Clear to auscultate bilaterally. ABDOMEN: Soft, nontender and nondistended. Positive bowel sounds. No guarding, rebound or tenderness. CENTRAL NERVOUS SYSTEM: Grossly nonfocal. EXTREMITIES: Lower extremities without edema bilaterally. A&P Assessment and plan (1) NSTEMI (non-ST elevated myocardial infarction): Patient presented with non-ST elevation HI. Most likely due to nondominant circumflex. Patient is chest pain-free since he has underlying kidney disease and his creatinine is 1.7 he is high risk for contrast-induced nephropathy and worsening of renal failure leading to temporary or permanent di alysis. I have detailed discussion with the patient, I explained him and his risk benefit and alternative for angiogram procedure. Patient and his would like to be treated medically since he is stable, however if we noticed that he is getting worse, he has recurrent chest pain or any signs and symptoms of instability we may can proceed with invasive strategy after discussing further with the patient. Continue aspirin statin clopidogrel and long-acting nitroglycerin Status: Acute (2) Sinus pause: few 3 to 4.7-second pause was noted while asleep. No significant pause or bradycardia noted during daytime while awake. Patient is not on júnior felicitas we will continue to monitor Status: Acute (3) Chronic kidney disease: Continue to monitor. Status: Chronic Qualifiers: Chronic kidney disease stage: stage 3 (moderate) Chronic kidney disease stage 3 subtype: stage 3a (GFR 45-59) Qualified Code(s): N18.31 - Chronic kidney disease, stage 3a (4) Essential hypertension: Not well controlled will optimize medicine. Status: Chronic (5) Hypercholesterolemia: Continue statin. Status: Chronic (6) CHF (congestive heart failure): Appear to be euvolemic. We will hold Lasix for now. Will ask for echocardiogram to assess LV function Status: Acute Qualifiers: Heart failure chronicity: chronic Heart failure type: systolic Qualified Code(s): I50.22 - Chronic systolic (congestive) heart failure Consult Attestations Medical Necessity Statement: Patient require continuation hospitalization for above patient require continuation hospitalization for above defined care. 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
[2021-07-15] MEDS: clopidogrel 75 mg Tablet PO (09:37)
[2021-07-15] MEDS: pantoprazole DR 40 mg Tablet PO (09:37)
[2021-07-15] MEDS: isosorbide mononitrate ER 30 mg Tablet 15 MG PO ×2 (09:38→20:42)
[2021-07-15] MEDS: hyDRALAzine 50 mg Tablet 75 MG PO ×3 (09:38→20:42)
--- NOTE | 2021-07-15 10:14 | PM.PN ---
Subjective Subjective: Interval history: Denies chest pain, palpitations, or any other discomfort currently, other than being very hungry. Him and his are requesting food for him. Vitals/I&O/Wt Last Vital Signs Temp 98.5 F 07/14/21 20:39 Pulse 86 07/15/21 07:46 Resp 18 07/15/21 07:46 BP 159/68 07/15/21 05:45 Pulse Ox 96 07/15/21 07:46 Weight last 48 hrs Weight 73.936 kg Physical Exam Const: COMMON NORMALS: no acute distress and patient oriented x3 HENMT: COMMON NORMALS: oropharynx normal Neck/C-Spine: COMMON NORMALS: no JVD Chest: OTHER: library monitor Resp: COMMON NORMALS: normal respiratory effort and clear to auscultation bilaterally AUSCULTATION: clear to auscultation bilaterally Cardio: COMMON NORMALS: no JVD, regular rhythm, S1 normal heart sound present, S2 normal heart sound present and No murmurs present (Cardio) RHYTHM: regular rhythm HEART SOUNDS: S1 normal heart sound present and S2 normal heart sound present GI: COMMON NORMALS: Normal to inspection, nondistended, normoactive bowel sounds present, Soft to palpation and non-tender PALPATION: Yes Soft to palpation Extremity: COMMON NORMALS: no joint enlargement and no pedal edema Neuro: COMMON NORMALS: patient oriented x3 and moves all extremities Skin: COMMON NORMALS: no rashes or lesions noted GENERAL SKIN EXAM: no rashes or lesions noted Data : 07/15/21 04:38 07/15/21 04:38 A&P Assessment and plan (1) Palpitations: With chest discomfort 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 Pending cardiology evaluation. Status: Acute (2) Elevated troponin: Pending additional discussion and evaluation with cardiology. Appreciate recommendations. Until then continue therapeutic Lovenox. Continue other CAD medications. Suggestive of non-ST elevation [place] in a patient with recent coronary intervention and other lesions not amenable to intervention Status: Acute (3) Sinus pause: Noted on event monitor reports up to 4.7 seconds in duration Status: Acute (4) CAD (coronary artery disease): Status: Chronic Qualifiers: Coronary Disease-Associated Artery/Lesion type: [place] artery [place] vs. transplanted heart: [place] heart Associated angina: with other forms of angina Qualified Code(s): I25.118 - Atherosclerotic heart disease of [place] coronary artery with other forms of angina pectoris (5) Essential hypertension: Status: Chronic (6) Chronic kidney disease: Status: Chronic Qualifiers: Chronic kidney disease stage: stage 3 (moderate) Chronic kidney disease stage 3 subtype: stage 3a (GFR 45-59) Qualified Code(s): N18.31 - Chronic kidney disease, stage 3a (7) Diabetes mellitus, type II: Status: Chronic Qualifiers: Diabetes mellitus shelter insulin use: without shelter use Diabetes mellitus complication status: with kidney complications Diabetes mellitus complication detail: with chronic kidney disease Chronic kidney disease stage: stage 3 (moderate) Chronic kidney disease stage 3 subtype: stage 3a (GFR 45-59) Qualified Code(s): E11.22 - Type 2 diabetes mellitus with diabetic chronic kidney disease; N18.31 - Chronic kidney disease, stage 3a Attestations Medical Necessity Statement*: Continue hospitalization for additional cardiology assessment of palpitations, chest discomfort, 4.7-second pause on event monitor. 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 transplanted heart: [place] heart Associated angina: with other forms of angina Essential hypertension I10 Chronic kidney disease N18.31 Chronic kidney disease stage: stage 3 (moderate) Chronic kidney disease stage 3 subtype: stage 3a (GFR 45-59) Diabetes mellitus, type II E11.22; N18.31 Diabetes mellitus roasterman insulin use: without roasterman use Diabetes mellitus complication status: with kidney complications Diabetes mellitus complication detail: with chronic kidney disease Chronic kidney disease stage: stage 3 (moderate) Chronic kidney disease stage 3 subtype: stage 3a (GFR 45-59)
[2021-07-15] MEDS: albuterol 8 gm MDI 2 PUFF INHALATION ×2 (10:22→21:14)
[2021-07-15] MEDS: loratadine 10 mg Tablet PO (10:36)
[2021-07-15] MEDS: aspirin 81 mg EC Tablet PO (10:36)
[2021-07-15] MEDS: atorvastatin 40 mg Tablet 20 MG PO (10:37)
[2021-07-15] MEDS: amlodipine 5 mg Tablet PO ×2 (10:37→22:37)
[2021-07-15] MEDS: enoxaparin 80 mg/0.8 mL Syringe 70 MG SUBCUT ×2 (12:43→22:37)
--- NOTE | 2021-07-15 14:45 | PC.NURSE ---
Transfer Note Patient transferred to [facility] from ER via wheelchair. Handoff received from Myra STARKS. Patient oriented to environment and equipment. Covering service notified. Orders reviewed and will continue to monitor. Family and/or field service representative notified.
[2021-07-15 22:52] LABS: Glucose Point of Care 217 mg/dL (70-110)
[2021-07-16] VITALS (11 sets, daily range): BP systolic 165–176; BP diastolic 71–93; PULSE 84–102; RESP 16–20; TEMP 36.2–36.9; O2SAT 92–95; BMI 27.9
--- NOTE | 2021-07-16 04:40 | PC.NURSE ---
Patient voiding in toilet, not saving urine to be measured. Patient voided six times throughout shift, per patient.
[2021-07-16 06:37] LABS: Basophils # 0.1 10^3/uL (0.0-0.1); Basophils % 0.5 %; Eosinophils # 0.2 10^3/uL (0.0-0.8); Eosinophils % 1.7 %; Hematocrit 40.4 % (42.0-52.0); Lymphocytes # 1.6 10^3/uL (0.8-4.8); Lymphocytes % 14.2 %; Mean Corpuscular HGB Conc 29.7 g/dL (30.0-36.0); Mean Corpuscular Hemoglobin 29.9 pg (28.0-34.0); Mean Corpuscular Volume 100.5 fl (80-94); Mean Platelet Volume 9.8 fL (7.4-10.4); Monocytes % 9.5 %; Neutrophils # 8.04 10^3/uL (1.8-7.7); Neutrophils % 73.8 %; Nucleated Red Blood Cells % 0 %; Platelet Count 254 10^3/cmm (130-400); Red Blood Count 4.02 10^6/uL (4.1-5.3); Red Cell Distribution Width 13.5 % (12.1-15.1); White Blood Count 10.9 10^3/uL (4.0-10.0)
[2021-07-16 06:53] LABS: Anion Gap 18.3 (5-19); Blood Urea Nitrogen 22 mg/dL (8-23); Calcium 7.5 mg/dL (8.5-10.5); Carbon Dioxide 20 mmol/L (22-29); Chloride 106 mmol/L (98-107); Creatinine Clr Calc Pharmacy 38.8226; Glomerular Filtration Rate 40.4 mL/min (90-130); Glucose 138 mg/dL (65-115); Magnesium 1.8 mg/dL (1.7-2.3); Osmolality Calculated 296 mOsm/kg (285-295); Phosphorus 3.3 mg/dL (2.5-4.5); Potassium 4.3 mmol/L (3.5-5.1); Sodium 140 mmol/L (136-145)
[2021-07-16 07:19] LABS: Glucose Point of Care 147 mg/dL (70-110)
--- NOTE | 2021-07-16 07:22 | ECG_ITS ---
[facility] Test Date: 2021-07-16 Pat Name: Luis Alfredo Thompson Department: Room: 102 Gender: Male Night Supervisor: : 1955 Requested By: Robert King Order Number: [id number] Jack MD: Saba Sims M.D. Measurements Intervals [place] Rate: 85 P: 81 SC: 167 QRS: 3 QRSD: 109 T: 142 QT: 370 QTc: 442 Interpretive Statements SINUS RHYTHM SEPTAL MYOCARDIAL INFARCTION , PROBABLY OLD [40+ ms Q WAVE IN V1/V2] Compared to ECG 07/15/2021 07:44:23 No significant changes Electronically Signed On 07-16-2021 16:43:10 EXPELLER OPERATOR by Saba Sims M.D. [email or web address].[employer]/store/OM/[id number]
--- NOTE | 2021-07-16 07:32 | USCV_ITS ---
Luis Alfredo Thompson Age: 66 Gender: M : 1955 Exam Date: 07/16/2021 08:10 Ordering Phys: Robert King MD ([email or web address]) Technologist: LARON Exam Location: [facility] Indication: NSTEMI?, hx CABG 2013; HX coronary stenting. BP: 176 / 84 HR: 84 Rhythm: Sinus Technical Quality: Adequate MEASUREMENTS (Male / Female) Normal Values 2D ECHO LV Diastolic Diameter PLAX 5.3 cm 4.2 - 5.9 / 3.9 - 5.3 cm LV Systolic Diameter PLAX 3.7 cm IVS Diastolic Thickness 1.1 cm 0.6 - 1.0 / 0.6 - 0.9 cm IVS Systolic Thickness 2.1 cm LVPW Diastolic Thickness 1.3 cm 0.6 - 1.0 / 0.6 - 0.9 cm LVPW Systolic Thickness 1.5 cm LVOT Diameter 2.1 cm LV Ejection Fraction 2D Teich 56.5 % LV Ejection Fraction MOD 2C 70.4 % LV Ejection Fraction 2C AL 71.7 % LA Diameter 3.9 cm LA Width 5.2 cm LA Height 5.3 cm RA Width 4.8 cm RA Height 4.6 cm Aorta at Sinotubular Diameter 2.9 cm M-MODE Aortic Annulus Diameter 2.9 cm LA Ao Ratio MM 1.4 MV E Point Septal Separation 0.6 cm DOPPLER AV Peak Velocity 166.0 cm/s LVOT Peak Velocity 98.0 cm/s AV Area Cont Eq vti 1.9 cm squared AV Area Cont Eq pk 2.0 cm squared MV Area PHT 5.0 cm squared Mitral E to A Ratio 1.2 MV E' Velocity 68.0 cm/s Mitral E to MV E' Ratio 11.7 Mitral E to LV E' Lateral Ratio 8.5 Mitral E to LV E' Septal Ratio 18.6 TR Peak Velocity 178.3 cm/s TR Peak Gradient 12.7 mmHg TV Peak E Velocity 69.0 cm/s Right Atrial Pressure 3.0 mmHg Pulmonary Artery Systolic Pressu 15.7 mmHg PV Peak Velocity 119.0 cm/s RV Acceleration Time 0.1 s RV Ejection Time 0.3 s RV AcT/ET 0.3 FINDINGS Left Ventricle Normal left ventricular cavity size. Normal left ventricular systolic function. No regional wall motion abnormalities. Left ventricular ejection fraction is estimated at 55 %. Grade II/IV diastolic dysfunction, moderately elevated filling pressures. Right Ventricle The right ventricle is normal in size and function. Right Atrium The right atrium is normal in size. Left Atrium The left atrium is normal in size. Mitral Valve Moderately thickened mitral valve. Severe mitral annular calcification. No mitral valve stenosis. Trace mitral valve regurgitation. Aortic Valve Moderate aortic valve calcification. No aortic valve stenosis. No aortic valve regurgitation. Tricuspid Valve Trace tricuspid valve regurgitation. Pulmonic Valve Structurally normal pulmonic valve without significant stenosis. There is no pulmonic regurgitation. Pericardium Normal pericardium without effusion. Aorta Normal ascending aorta dimension. CONCLUSIONS 1-Normal left ventricular cavity size. Normal left ventricular systolic function. No regional wall motion abnormalities. Left ventricular ejection fraction is estimated at 55 %. Grade II/IV diastolic dysfunction, moderately elevated filling pressures. 2-Moderately thickened mitral valve. Severe mitral annular calcification. No mitral valve stenosis. Trace mitral valve regurgitation. 3-There is no pericardial effusion. 4-Pulmonary artery systolic pressure is within normal limits. 5-No significant change since the prior echocardiogram study of 06/05/2014. Robert King MD (Electronically Signed) Final Date: 16 July 2021 23:13 S
[2021-07-16] MEDS: pantoprazole DR 40 mg Tablet PO (07:40)
[2021-07-16] MEDS: aspirin 81 mg EC Tablet PO (07:40)
[2021-07-16] MEDS: loratadine 10 mg Tablet PO (07:40)
[2021-07-16] MEDS: hyDRALAzine 50 mg Tablet 100 MG PO ×3 (07:41→20:50)
[2021-07-16] MEDS: atorvastatin 40 mg Tablet 20 MG PO (07:41)
[2021-07-16] MEDS: isosorbide mononitrate ER 30 mg Tablet PO ×2 (07:41→17:32)
[2021-07-16] MEDS: clopidogrel 75 mg Tablet PO (07:41)
[2021-07-16] MEDS: amlodipine 5 mg Tablet PO ×2 (07:42→20:50)
[2021-07-16 08:03] LABS: Troponin(5th) Baseline 160 ng/L (0-15)
[2021-07-16] MEDS: albuterol 8 gm MDI 2 PUFF INHALATION (09:03)
--- NOTE | 2021-07-16 09:22 | ECG_ITS ---
[facility] Test Date: 2021-07-16 Pat Name: Luis Alfredo Thompson Department: Room: 102 Gender: Male Video Production Coordinator: : 1955 Requested By: Robert King Order Number: [id number] Jack MD: Saba Sims M.D. Measurements Intervals [place] Rate: 91 P: 35 NH: 153 QRS: 7 QRSD: 110 T: 68 QT: 360 QTc: 444 Interpretive Statements SINUS RHYTHM WITH OCCASIONAL VENTRICULAR PREMATURE COMPLEXES SEPTAL MYOCARDIAL INFARCTION , OF INDETERMINATE AGE [40+ ms Q WAVE IN V1/V2] MODERATE T-WAVE ABNORMALITY, CONSIDER LATERAL ISCHEMIA [-0.1+ mV T WAVE IN I/aVL/V5/V6] Compared to ECG 07/16/2021 09:05:00 Ventricular premature complex(es) now present T-wave abnormality now present Possible ischemia now present Myocardial infarct finding still present Electronically Signed On 07-16-2021 16:42:53 PATIENT INTAKE REPRESENTATIVE by Saba Sims M.D. [email or web address]/[id number]
[2021-07-16] MEDS: sodium chloride 0.9% 1,000 ML 100 ML IV (09:30)
--- NOTE | 2021-07-16 09:39 | PC.NURSE ---
spoke with Dr hardy about patient being diabetic instructions to start accu checks with meals and at bed time low dose sliding scale short acting insulin with meals and at bedtime
[2021-07-16 09:50] LABS: Troponin 5 2HR 137.4 ng/L (0-15); Troponin 5 2HR Delta -22.6 ABS# (0-10)
--- NOTE | 2021-07-16 10:01 | PC.CHAP ---
Pastoral Care Encounter/Spiritual Assessment Type of Contact [] Declined senior java programmer visit [] Patient/Family/Request visit [] Outpatient visit [] Follow-up visit [] Physician referral [] Code/Alert [x] Routine visit [] Staff referral [] Actively dying [] Patient sleeping [x] Family support [] [] Out of room [] Palliative care [] [] Receiving care in room [] Pre-surgical visit [] Trauma [] Long length of stay [] ICU visit [] Other: Relational/Emotional Strength [] Patient feels connected with others/family/visitors/staff [] Distress [] Loneliness/isolation [] Abandonment Spirituality of Patient [] Person of Ileana [] Attends Jain of their Ileana [] Believes in Prayer [] Reads Bible or Yarsani materials [] There are Spiritual issues to be addressed Bunch Breaker Machine Operator Interventions [x] Prayer [x] Active listening [x] Non-anxious presence [x] Spiritual/emotional support [] Crisis/trauma care [] Spiritual counseling [] Bereavement support [] Provided bereavement packet [] Provided Bible/devotional materials [] Provided toy/stuffed animal, coloring book to patient or family member [] Provided Communion [] Anointing/[place] [] Salvation [x] Completed spiritual assessment [] Other: Impact on Illness or Injury [] Angry [] Fearful [] Anxious [] Often cries [] Exhaustion [] Unable to work [] Unable to attend temple [] Unable to walk/stand [] Unable to read [] Unable to drive [] Unable to eat/drink [] Unable to sleep [] Unable to be with family [] Patient intubated [] Other: Summary patient feeling better... doctor wants him to remain another day.... Time spent with patient 10 min
[2021-07-16 11:48] LABS: Glucose Point of Care 300 mg/dL (70-110)
[2021-07-16] MEDS: enoxaparin 80 mg/0.8 mL Syringe 70 MG SUBCUT (12:10)
[2021-07-16] MEDS: insulin lispro 100 unit/1 mL SUBCUT ×3 (12:10→21:28)
[2021-07-16 13:04] LABS: Troponin 5 6HR Delta 6.2 ng/L (0-12)
[2021-07-16 13:06] LABS: Troponin 5 6HR 166.2 ng/L (0-15)
--- NOTE | 2021-07-16 13:22 | ECG_ITS ---
[facility] Test Date: 2021-07-16 Pat Name: Luis Alfredo Thompson Department: Room: 102 Gender: Male Cable Splicer: : 1955 Requested By: Robert King Order Number: [id number] Jack MD: Saba Sims M.D. Measurements Intervals [place] Rate: 93 P: -80 DE: 195 QRS: 16 QRSD: 125 T: 226 QT: 370 QTc: 460 Interpretive Statements ECTOPIC ATRIAL RHYTHM SEPTAL MYOCARDIAL INFARCTION , OF INDETERMINATE AGE [40+ ms Q WAVE IN V1/V2] T wave abnormality, consider lateral ischemia Compared to ECG 07/16/2021 10:14:19 Ectopic atrial rhythm now present Sinus rhythm no longer present Ventricular premature complex(es) no longer present Myocardial infarct finding still present Electronically Signed On 07-16-2021 16:41:40 MANAGER MUSIC by Saba Sims M.D. [email or web address] Brewingsouth mississippi state hospitalIntec Pharm[facility]et[facility].[employer]/store/OM/[id number]
--- NOTE | 2021-07-16 15:59 | P.PN_ITS ---
Subjective Subjective: Interval history: States he is doing all right this morning, denies chest pain or pressure. Denies palpitations. Vitals/I&O/Wt Last Vital Signs Temp 98.5 F 07/16/21 11:27 Pulse 102 H 07/16/21 14:00 Resp 17 07/16/21 11:27 BP 173/93 07/16/21 11:27 Pulse Ox 94 07/16/21 11:27 07/16/21 07/16/21 07/16/21 06:59 14:59 22:59 Intake Total 300 / 1135 Balance 300 / 1135 Weight last 48 hrs Weight 73.936 kg Physical Exam Narrative: EXAM NARRATIVE: at bedside. Const: COMMON NORMALS: no acute distress and patient oriented x3 HENMT: COMMON NORMALS: oropharynx normal Neck/C-Spine: COMMON NORMALS: no JVD Resp: COMMON NORMALS: normal respiratory effort and clear to auscultation bilaterally AUSCULTATION: clear to auscultation bilaterally Cardio: COMMON NORMALS: no JVD, regular rhythm, S1 normal heart sound present, S2 normal heart sound present and No murmurs present (Cardio) RHYTHM: regular rhythm HEART SOUNDS: S1 normal heart sound present and S2 normal heart sound present GI: COMMON NORMALS: Normal to inspection, nondistended, normoactive bowel sounds present, Soft to palpation and non-tender PALPATION: Yes Soft to palpation Extremity: COMMON NORMALS: no joint enlargement and no pedal edema Neuro: COMMON NORMALS: patient oriented x3 and moves all extremities Skin: COMMON NORMALS: no rashes or lesions noted GENERAL SKIN EXAM: no rashes or lesions noted Data : 07/16/21 06:05 07/16/21 06:05 A&P Assessment and plan (1) NSTEMI (non-ST elevated myocardial infarction): Appreciate cardiology recommendations after discussion with patient they have decided to proceed with medical management at this time. Medications are being optimized, with dose of Imdur, hydralazine adjusted. Continue aspirin, Plavix, statin. No neurologic due to pause. Status: Acute (2) Palpitations: With chest discomfort Continue clinical research monitor. Few 3 to 4.7-second pauses noted while asleep. Not on beta-felicitas. Status: Acute (3) Elevated troponin: As above. Status: Acute (4) Sinus pause: Few 3 to 4.7-second pauses noted while asleep. Not on beta-felicitas. Continue telemetry monitoring. Status: Acute (5) CHF (congestive heart failure): Status: Acute Qualifiers: Heart failure type: systolic Heart failure chronicity: chronic Qualified Code(s): I50.22 - Chronic systolic (congestive) heart failure (6) CAD (coronary artery disease): Status: Chronic Qualifiers: Coronary Disease-Associated Artery/Lesion type: [place] artery [place] vs. transplanted heart: [place] heart Associated angina: with other forms of angina Qualified Code(s): I25.118 - Atherosclerotic heart disease of [place] coronary artery with other forms of angina pectoris (7) Essential hypertension: Status: Chronic (8) Chronic kidney disease: Entirely clear with her creatinine is at new baseline or MARCELO on CKD. Cardiology started on gentle fluid challenge. Monitor renal function, volume status. Status: Chronic Qualifiers: Chronic kidney disease stage: stage 3 (moderate) Chronic kidney disease stage 3 subtype: stage 3a (GFR 45-59) Qualified Code(s): N18.31 - Chronic kidney disease, stage 3a (9) Diabetes mellitus, type II: Status: Chronic Qualifiers: Diabetes mellitus director long term care insulin use: without director long term care use Diabetes mellitus complication status: with kidney complications Diabetes mellitus complication detail: with chronic kidney disease Chronic kidney disease stage: stage 3 (moderate) Chronic kidney disease stage 3 subtype: stage 3a (GFR 45-59) Qualified Code(s): E11.22 - Type 2 diabetes mellitus with diabetic chronic kidney disease; N18.31 - Chronic kidney disease, stage 3a Attestations Medical Necessity Statement*: Continue to optimize medical management following NSTEMI in [place] with also noted several pauses, and underlying CAD, CKD. Coding Level of Care Code Acute Prawn Trawler Hand for [facility] Fwd Diagnoses NSTEMI (non-ST elevated myocardial infarction) I21.4 Palpitations R00.2 Elevated troponin R77.8 Sinus pause I45.5 CHF (congestive heart failure) I50.22 Heart failure type: systolic Heart failure chronicity: chronic CAD (coronary artery disease) I25.118 Coronary Disease-Associated Artery/Lesion type: [place] artery [place] vs. transplanted heart: [place] heart Associated angina: with other forms of angina Essential hypertension I10 Chronic kidney disease N18.31 Chronic kidney disease stage: stage 3 (moderate) Chronic kidney disease stage 3 subtype: stage 3a (GFR 45-59) Diabetes mellitus, type II E11.22; N18.31 Diabetes mellitus director long term care insulin use: without [facility] use Diabetes mellitus complication status: with kidney complications Diabetes mellitus complication detail: with chronic kidney disease Chronic kidney disease stage: stage 3 (moderate) Chronic kidney disease stage 3 subtype: stage 3a (GFR 45-59)
[2021-07-16 17:26] LABS: Glucose Point of Care 192 mg/dL (70-110)
--- NOTE | 2021-07-16 18:50 | PC.NURSE ---
Shift Note Frequent safety and comfort rounds continue. Orders and/or nursing care completed as indicated. Patient monitored for response to intervention and treatment(s). Education provided includes plan of care medical management. Patient and/or b2b outside sales representative verbalized understanding. Will continue to monitor.
--- NOTE | 2021-07-16 19:22 | PM.PN ---
Subjective Subjective: Interval history: Denies any chest pain troponin peaked at 160 and getting better. Vitals/I&O/Wt Last Vital Signs Temp 97.9 F 07/16/21 19:12 Pulse 98 07/16/21 19:12 Resp 20 H 07/16/21 19:12 BP 167/76 07/16/21 19:12 Pulse Ox 95 07/16/21 19:12 07/16/21 07/16/21 07/16/21 06:59 14:59 22:59 Intake Total 300 / 1135 52 / 52 Balance 300 / 1135 52 / 52 Weight last 48 hrs Weight 163 lb Physical Exam Narrative: EXAM NARRATIVE: GENERAL: Patient is alert, awake and oriented x3. NECK: No jugular vein distension. HEENT: No cyanosis. No icterus. No pallor. HEART: Regular S1 and S2. No murmur, rub or gallop. LUNGS: Clear to auscultate bilaterally. ABDOMEN: Soft, nontender and nondistended. Positive bowel sounds. No guarding, rebound or tenderness. CENTRAL NERVOUS SYSTEM: Grossly nonfocal. EXTREMITIES: Lower extremities without edema bilaterally. Data : 07/16/21 06:05 07/16/21 06:05 A&P Assessment and plan (1) NSTEMI (non-ST elevated myocardial infarction): Patient presented with non-ST elevation PR. Most likely due to nondominant circumflex. Patient is chest pain-free since he has underlying kidney disease and his creatinine is 1.7 he is high risk for contrast-induced nephropathy and worsening of renal failure leading to temporary or permanent dialysis. I have detailed discussion with the patient, I explained him and his risk benefit and alternative for angiogram procedure. Patient and his would like to be treated medically since he is stable, however if we noticed that he is getting worse, he has recurrent chest pain or any signs and symptoms of instability we may can proceed with invasive strategy after discussing further with the patient. Continue aspirin statin clopidogrel and long-acting nitroglycerin Appear to be stable from a cardiovascular perspective, cardiac markers started improving. We will continue medical management I have again detailed discussion with the patient his regarding risk benefit and already for the left heart cath I myself and patient his all are in agreement that he should be continue to be treated medically continue aspirin statin nitroglycerin and clopidogrel. Patient is not on beta-felicitas due to history of night pauses. Echocardiogram is pending Status: Acute (2) Sinus pause: few 3 to 4.7-second pause was noted while asleep. No significant pause or bradycardia noted during daytime while awake. Patient is not on júnior felicitas we will continue to monitor Appear to be stable denies any daytime bradycardia dizziness fatigue fainting or passing out. Continue to monitor. Status: Acute (3) Chronic kidney disease: We will continue IV fluid. We will check BMP in the morning Status: Chronic Qualifiers: Chronic kidney disease stage: stage 3 (moderate) Chronic kidney disease stage 3 subtype: stage 3a (GFR 45-59) Qualified Code(s): N18.31 - Chronic kidney disease, stage 3a (4) Essential hypertension: Not well controlled will optimize medicine. Status: Chronic (5) Hypercholesterolemia: Continue statin. Status: Chronic (6) CHF (congestive heart failure): Appear to be euvolemic. We will hold Lasix for now. Will ask for echocardiogram to assess LV function Status: Acute Qualifiers: Heart failure type: systolic Heart failure chronicity: chronic Qualified Code(s): I50.22 - Chronic systolic (congestive) heart failure Attestations Medical Necessity Statement*: Patient require continuation hospitalization for above defined care. Coding Level of Care Code Established Pt Acute Virtual Assistant For Advertisers for Hong Cunningham Patient Type Established History Detailed Exam Detailed Medical Decision Making Moderate Complexity Diagnoses NSTEMI (non-ST elevated myocardial infarction) I21.4 Sinus pause I45.5 Chronic kidney disease N18.31 Chronic kidney disease stage: stage 3 (moderate) Chronic kidney disease stage 3 subtype: stage 3a (GFR 45-59) Essential hypertension I10 Hypercholesterolemia E78.00 CHF (congestive heart failure) I50.22 Heart failure type: systolic Heart failure chronicity: chronic
[2021-07-16 21:05] LABS: Glucose Point of Care 204 mg/dL (70-110)
[2021-07-17] VITALS (7 sets, daily range): BP systolic 161–174; BP diastolic 57–73; PULSE 80–97; RESP 16–18; TEMP 36.6; O2SAT 93–97
[2021-07-17 04:05] LABS: Basophils % 0.4 %; Eosinophils # 0.1 10^3/uL (0.0-0.8); Eosinophils % 1.6 %; Hematocrit 34.3 % (42.0-52.0); Lymphocytes # 1.5 10^3/uL (0.8-4.8); Lymphocytes % 17.1 %; Mean Corpuscular HGB Conc 32.1 g/dL (30.0-36.0); Mean Corpuscular Hemoglobin 29.7 pg (28.0-34.0); Mean Corpuscular Volume 92.7 fl (80-94); Mean Platelet Volume 9.9 fL (7.4-10.4); Monocytes # 0.8 10^3/uL (0.2-0.9); Monocytes % 9.3 %; Neutrophils # 6.41 10^3/uL (1.8-7.7); Neutrophils % 71.3 %; Nucleated Red Blood Cells % 0 %; Platelet Count 250 10^3/cmm (130-400); Red Cell Distribution Width 13.4 % (12.1-15.1)
[2021-07-17 04:30] LABS: Anion Gap 16.1 (5-19); Blood Urea Nitrogen 14 mg/dL (8-23); Calcium 7.3 mg/dL (8.5-10.5); Carbon Dioxide 21 mmol/L (22-29); Chloride 106 mmol/L (98-107); Glomerular Filtration Rate 43.3 mL/min (90-130); Glucose 107 mg/dL (65-115); Osmolality Calculated 289 mOsm/kg (285-295); Potassium 4.1 mmol/L (3.5-5.1); Sodium 139 mmol/L (136-145)
--- NOTE | 2021-07-17 05:16 | PC.NURSE ---
Frequent safety and comfort rounds continue. Orders and/or nursing care completed as indicated. Patient monitored for response to intervention and treatment(s). Education provided includes medications and side effects. Patient and/or quality control representative verbalizes understanding. Will continue to monitor.
[2021-07-17 06:37] LABS: Glucose Point of Care 140 mg/dL (70-110)
--- NOTE | 2021-07-17 09:13 | PM.PN ---
Subjective Subjective: Interval history: Patient denies any complaint he is feeling much better creatinine has improved to 1.6. Blood pressure is mildly elevated. He would like to go home. Medications: Reviewed: Yes Vitals/I&O/Wt Last Vital Signs Temp 97.9 F 07/17/21 02:50 Pulse 90 07/17/21 05:14 Resp 16 07/17/21 05:14 BP 161/73 07/17/21 02:50 Pulse Ox 94 07/17/21 05:14 07/16/21 07/17/21 07/17/21 22:59 06:59 14:59 Intake Total 1052 / 1052 60 / 1112 Balance 1052 / 1052 60 / 1112 Weight last 48 hrs Weight 163 lb Physical Exam Narrative: EXAM NARRATIVE: GENERAL: Patient is alert, awake and oriented x3. NECK: No jugular vein distension. HEENT: No cyanosis. No icterus. No pallor. HEART: Regular S1 and S2. No murmur, rub or gallop. LUNGS: Clear to auscultate bilaterally. ABDOMEN: Soft, nontender and nondistended. Positive bowel sounds. No guarding, rebound or tenderness. CENTRAL NERVOUS SYSTEM: Grossly nonfocal. EXTREMITIES: Lower extremities without edema bilaterally. Data : 07/17/21 03:52 07/17/21 03:52 A&P Assessment and plan (1) NSTEMI (non-ST elevated myocardial infarction): Patient presented with non-ST elevation NC. Most likely due to nondominant circumflex. Patient is chest pain-free since he has underlying kidney disease and his creatinine is 1.7 he is high risk for contrast-induced nephropathy and worsening of renal failure leading to temporary or permanent dialysis. I have detailed discussion with the patient, I explained him and his risk benefit and alternative for angiogram procedure. Patient and his would like to be treated medically since he is stable, however if we noticed that he is getting worse, he has recurrent chest pain or any signs and symptoms of instability we may can proceed with invasive strategy after discussing further with the patient. Continue aspirin statin clopidogrel and long-acting nitroglycerin Appear to be stable from a cardiovascular perspective, cardiac markers started improving. We will continue medical management I have again detailed discussion with the patient his regarding risk benefit and already for the left heart cath I myself and patient his all are in agreement that he should be continue to be treated medically continue aspirin statin nitroglycerin and clopidogrel. Patient is not on beta-felicitas due to history of night pauses. Echocardiogram is pending. Patient is doing much better denies any complaint walking around he would like to go home. We have discussed in detail again management he agrees with that we will continue to treat medically. Advised in case of worsening of chest pain shortness of breath orthopnea heart failure symptoms he can call us or come to the ER. Echocardiogram showed normal ejection fraction which has not changed from the prior exam. Status: Acute (2) Sinus pause: few 3 to 4.7-second pause was noted while asleep. No significant pause or bradycardia noted during daytime while awake. Patient is not on júnior felicitas we will continue to monitor Appear to be stable denies any daytime bradycardia dizziness fatigue fainting or passing out. Continue to monitor. We will continue to monitor. No significant pauses noted overnight on the telemetry. Patient is already on monitor he is not on beta-felicitas júnior felicitas continue to monitor. Advised to follow-up in the clinic Status: Acute (3) Chronic kidney disease: It has improved. Patient needs to follow-up with renal Status: Chronic Qualifiers: Chronic kidney disease stage: stage 3 (moderate) Chronic kidney disease stage 3 subtype: stage 3a (GFR 45-59) Qualified Code(s): N18.31 - Chronic kidney disease, stage 3a (4) Essential hypertension: I will optimize his medicine. Status: Chronic (5) Hypercholesterolemia: Continue statin. Status: Chronic (6) CHF (congestive heart failure): Appear to be euvolemic. I will hold diuretics for now. Status: Acute Qualifiers: Heart failure type: systolic Heart failure chronicity: chronic Qualified Code(s): I50.22 - Chronic systolic (congestive) heart failure Attestations Medical Necessity Statement*: Patient can be discharged from cardiovascular perspective. Coding Level of Care Code Established Pt Acute Liner Machine Operator Helper for Hong Cunningham Patient Type Established History Detailed Exam Detailed Medical Decision Making Moderate Complexity Diagnoses NSTEMI (non-ST elevated myocardial infarction) I21.4 Sinus pause I45.5 Chronic kidney disease N18.31 Chronic kidney disease stage: stage 3 (moderate) Chronic kidney disease stage 3 subtype: stage 3a (GFR 45-59) Essential hypertension I10 Hypercholesterolemia E78.00 CHF (congestive heart failure) I50.22 Heart failure type: systolic Heart failure chronicity: chronic
[2021-07-17] MEDS: atorvastatin 40 mg Tablet 20 MG PO (09:29)
[2021-07-17] MEDS: aspirin 81 mg EC Tablet PO (09:29)
[2021-07-17] MEDS: loratadine 10 mg Tablet PO (09:29)
[2021-07-17] MEDS: amlodipine 5 mg Tablet PO (09:29)
[2021-07-17] MEDS: clopidogrel 75 mg Tablet PO (09:29)
[2021-07-17] MEDS: hyDRALAzine 50 mg Tablet 100 MG PO (09:29)
[2021-07-17] MEDS: isosorbide mononitrate ER 30 mg Tablet PO (09:29)
[2021-07-17] MEDS: pantoprazole DR 40 mg Tablet PO (09:29)
--- NOTE | 2021-07-17 10:39 | P.DS_ITS ---
Discharge Providers Date of Admission: 07/15/21 05:55 Date of Discharge: July 17, 2021 Attending Provider at Admission: Dorcas Fenton MD Attending Provider at Discharge: Gian Downs Primary Care Provider: Joce Hodge MD Diagnoses at Discharge Discharge Diagnosis (1) NSTEMI (non-ST elevated myocardial infarction): Status: Acute (2) Sinus pause: Status: Acute (3) Chronic kidney disease: Status: Chronic Qualifiers: Chronic kidney disease stage: stage 3 (moderate) Chronic kidney disease stage 3 subtype: stage 3a (GFR 45-59) Qualified Code(s): N18.31 - Chronic kidney disease, stage 3a (4) Essential hypertension: Status: Chronic (5) Hypercholesterolemia: Status: Chronic (6) CHF (congestive heart failure): Status: Acute Qualifiers: Heart failure type: systolic Heart failure chronicity: chronic Qualified Code(s): I50.22 - Chronic systolic (congestive) heart failure Reason for Visit Reason for Visit: CP Hospital Course Hospital Course Pleasant 66-year-old gentleman with history of multivessel CAD, status post CABG, chronic kidney disease, DM 2, history of LAD stenting currently on cardiac rehabilitation specialist due to pauses, came to ER for evaluation due to chest pain, with noted worsening renal function, elevated troponin suggestive of NSTEMI. Was treated by ACS protocol apart from beta-felicitas which was held due to pauses. Was assessed by cardiology and extensive discussions took place between them and patient and family, with consensus being to proceed with optimization of medical therapy and consideration of coronary atrophy in case of lack of response. Twelve-lead EKG was suggestive of inferolateral ST depression which later resolved. Recent angiogram was consistent with normal left main mid LAD significant disease which was treated with drug-eluting stent diagonal has moderate lesion thought not to be significant,left circumflex was nondominant small caliber vessel with calcified multiple ostial to mid lesions thought to be managed medically, RCA was known to be chronically occluded SVG to RCA was patent SVG to circumflex was known to be occluded CASILLAS was never used. Currently he is chest pain-free denies PND orthopnea creatinine is 1.7 which has worsened from baseline of 1.6. His medications were adjusted. Imdur dose was increased to 30 mg twice daily. Hydralazine dose increased to 100 mg 3 times daily. He is continued on aspirin, Plavix, statin. He remains chest pain-free. He has been ambulating. He is feeling well. Feels ready to return home. He was reassessed by cardiology and he is released with follow-up in office. He is asked to recharge and continue his cardiac rehabilitation specialist until he is reevaluated at follow-up. He is asked to avoid júnior blocking agents. His creatinine today is slightly better at 1.6. He received fluid challenge while in the hospital. He does have lower extremity edema which is reported chronic, especially more so on the right side after CABG vein harvesting. He has no dyspnea, no orthopnea. Is otherwise asymptomatic without signs of heart failure. He is given prescription for Lasix as needed with instructions not to take it unless edema is worsening or he is developing orthopnea, BERGMAN, PND, etc. He is asked to follow-up with nephrology in office with regards to chronic kidney disease with recent worsening. Physical Exam Narrative: EXAM NARRATIVE: at bedside. 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 Resp: COMMON NORMALS: normal respiratory effort and clear to auscultation bilaterally AUSCULTATION: clear to auscultation bilaterally Cardio: COMMON NORMALS: no JVD, regular rhythm, S1 normal heart sound present, S2 normal heart sound present and No murmurs present (Cardio) RHYTHM: regular rhythm HEART SOUNDS: S1 normal heart sound present and S2 normal heart sound present GI: COMMON NORMALS: Normal to inspection, nondistended, normoactive bowel sounds present, Soft to palpation and non-tender PALPATION: Yes Soft to palpation Extremity: COMMON NORMALS: no joint enlargement GENERAL: Yes edema (chronic 2+ BL LE R>L) Neuro: COMMON NORMALS: patient oriented x3 and moves all extremities Skin: COMMON NORMALS: no rashes or lesions noted GENERAL SKIN EXAM: no rashes or lesions noted Discharge Data Data Completed and Pending: Completed Studies During Hospitalization Category Date Time Status CV. echo complete * [id number] Routine Ultrasound 07/16/21 07:32 Completed Pending at discharge Category Date Time Status Basic Metabolic P nesha AM LABS Lab 07/18/21 04:00 Ordered Basic Metabolic P nesha AM LABS Lab 07/19/21 04:00 Ordered Complete Blood Co unt w/Auto AM LABS Lab 07/18/21 04:00 Ordered Complete Blood Co unt w/Auto AM LABS Lab 07/19/21 04:00 Ordered Labs from last 24 hours 07/17/21 07/17/21 07/17/21 06:24 03:52 03:52 WBC 9.0 RBC 3.70 L Hgb 11.0 L Hct 34.3 L MCV 92.7 D MCH 29.7 MCHC 32.1 D RDW 13.4 Plt Count 250 MPV 9.9 Neut % (Auto) 71.3 Lymph % (Auto) 17.1 [place] % (Auto) 9.3 Eos % (Auto) 1.6 Baso % (Auto) 0.4 Neut # (Auto) 6.41 Lymph # (Auto) 1.5 [place] # (Auto) 0.8 Eos # (Auto) 0.1 Baso # (Auto) 0.0 Nucleated RBC % (a uto) 0 Nucleated RBCs # 0.0 Sodium 139 Potassium 4.1 Chloride 106 Carbon Dioxide 21 L Anion Gap 16.1 BUN 14 Creatinine 1.6 H GFR Calculation 43.3 L Glucose 107 POC Glucose 140 H Calculated Osmolal ity 289 Calcium 7.3 L Magnesium 2.0 Troponin T Hi Sens 6Hr Troponin T Hi Sens 6Hr Delta 07/16/21 07/16/21 07/16/21 20:49 17:23 12:21 WBC RBC Hgb Hct MCV MCH MCHC RDW Plt Count MPV Neut % (Auto) Lymph % (Auto) [place] % (Auto) Eos % (Auto) Baso % (Auto) Neut # (Auto) Lymph # (Auto) [place] # (Auto) Eos # (Auto) Baso # (Auto) Nucleated RBC % (a uto) Nucleated RBCs # Sodium Potassium Chloride Carbon Dioxide Anion Gap BUN Creatinine GFR Calculation Glucose POC Glucose 204 H 192 H Calculated Osmolal ity Calcium Magnesium Troponin T Hi Sens 6Hr 166.2 H Troponin T Hi Sens 6Hr Delta 6.2 07/16/21 11:30 WBC RBC Hgb Hct MCV MCH MCHC RDW Plt Count MPV Neut % (Auto) Lymph % (Auto) [place] % (Auto) Eos % (Auto) Baso % (Auto) Neut # (Auto) Lymph # (Auto) [place] # (Auto) Eos # (Auto) Baso # (Auto) Nucleated RBC % (a uto) Nucleated RBCs # Sodium Potassium Chloride Carbon Dioxide Anion Gap BUN Creatinine GFR Calculation Glucose POC Glucose 300 H Calculated Osmolal ity Calcium Magnesium Troponin T Hi Sens 6Hr Troponin T Hi Sens 6Hr Delta Vitals: Last Vital Signs Temp 97.9 F 07/17/21 02:50 Pulse 80 07/17/21 09:55 Resp 16 07/17/21 05:14 BP 174/69 07/17/21 09:55 Pulse Ox 94 07/17/21 05:14 Discharge Plan Discharge Patient Disposition: Home Condition: Stable Prescriptions: New furosemide [Lasix] 20 mg tablet 20 mg PO DAILY PRN (Reason: edema) Qty: 30 RF: 0 Continued loratadine [Claritin] 10 mg tablet 10 mg PO DAILY RF: 0 Gas Relief (simethicone) 250 mg capsule 250 mg PO BID PRN (Reason: Abdominal Discomfort) RF: 0 pantoprazole 40 mg tablet,delayed release (DR/EC) 40 mg PO DAILY Qty: 90 RF: 3 nitroglycerin [Nitrostat] 0.4 mg tablet, sublingual 0.4 mg sublingual Q5M PRN (Reason: chest pain) Qty: 25 RF: 3 blood sugar diagnostic [OneTouch Ultra Blue Test Strip] Strip See Rx Instructions .ROUTE .COMPLEX Qty: 100 RF: 9 metformin 1,000 mg tablet 1,000 mg PO BID Qty: 180 RF: 3 rosuvastatin 5 mg tablet 5 mg PO DAILY Qty: 30 RF: 5 glimepiride 4 mg tablet 4 mg PO BID Qty: 180 RF: 3 clopidogrel 75 mg Tablet 75 mg PO DAILY Qty: 90 RF: 4 albuterol sulfate [ProAir HFA] 90 mcg/actuation Hfa Aerosol Inhaler 2 puff INHALATION BID PRN (Reason: Shortness Of Breath) RF: 0 Aspir-81 81 mg Tablet,Delayed Release (Dr/Ec) 81 mg PO QAM RF: 0 tizanidine 4 mg Tablet 4 mg PO QAM RF: 0 Vitamin C 500 mg Tablet 500 mg PO DAILY RF: 0 calcium carbonate 500 mg calcium (1,250 mg) Tablet,Chewable 500 mg PO PRN PRN (Reason: Heartburn) RF: 0 vitamin E 400 unit Capsule 400 unit PO DAILY RF: 0 clonidine HCl 0.2 mg tablet 0.2 mg PO BID RF: 0 Changed isosorbide mononitrate 30 mg tablet extended release 24 hr 30 mg PO BID Qty: 90 RF: 3 hydralazine 50 mg tablet 100 mg PO TID Qty: 405 RF: 3 Discontinued amlodipine 5 mg Tablet 5 mg PO BID RF: 0 Discharge Orders: Discharge Order (Routine); Ordered 07/17/21 Ordered By: Gian Downs Referrals: Joce Hodge MD [Primary Care Provider] - 4-7 days Gregg Anaya MD [Referring] - 2 weeks ([facility] will be calling you to set up an appointment here in [place] with Dr. Anaya to be seen in approximately 2 weeks. If you don't hear from them within a reasonable amount of time, please give them a call. Thank you) Robert King MD [Physician] - 07/21/21 Discharge Diet: Cardiac, Diabetic and Low Salt Discharge Activity: Increase activity as tolerated Patient Instructions: Furosemide (By mouth) (Lasix), Coronary Artery Disease (GEN), Chronic Kidney Disease (GEN) Activity Restrictions/Additional Instructions: Follow-up with Dr. King as scheduled on 21 July. Follow-up with nephrology Dr. Anaya. Keep log of blood pressure pulse and bring it to Dr. King's office along with the cardiac rehabilitation specialist. Please note if your swelling is worse, take furosemide which is a diuretic which may help convert of extra fluid buildup, however, please note that chronic leg swelling can also be caused by amlodipine which you are using to treat your blood pressure. To help reduce effect of leg swelling from amlodipine, lisinopril can be added but only once your kidney function is found to be stable with your primary provider and kidney doctor. Please make sure to recharge your monitor and continue monitor until your follow-up with cardiology at which point please confirm whether monitor duration needs to be extended. In case of return or persistent chest pain or pressure, heart racing or skipping beats, fainting or any other concerning symptoms, please seek medical attention without delay. Avoid any NSAIDs like ibuprofen, Aleve, or similar, or other medications which may be detrimental to renal function. Discharge Attestations Time Spent in Discharge Care*: greater than 30 min Quality Metrics Clinical Quality Measures During this hospital stay, did patient experience: AMI Clinical Trial Participant: No Contraindication to aspirin (AMI): Aspirin given Contraindication to statin: Statin prescribed Contraindication to PCI: Further opinion sought Coding Level of Care Code Acute g [facility] note Diagnoses NSTEMI (non-ST elevated myocardial infarction) I21.4 Sinus pause I45.5 Chronic kidney disease N18.31 Chronic kidney disease stage: stage 3 (moderate) Chronic kidney disease stage 3 subtype: stage 3a (GFR 45-59) Essential hypertension I10 Hypercholesterolemia E78.00 CHF (congestive heart failure) I50.22 Heart failure type: systolic Heart failure chronicity: chronic
[2021-07-17 11:13] LABS: Glucose Point of Care 303 mg/dL (70-110)
[2021-07-17] MEDS: insulin lispro 100 unit/1 mL SUBCUT (11:34)
== END 2021-07-17 12:10 | disposition home or self-care (01) ==
LOC: ER 07-15 02:24 → ER IP 07-15 07:55 → CSU 07-15 13:29
PROVIDERS: Internal Medicine Cardiovascular Disease; Admitting Provider Hospitalist; Emergency Provider Emergency Medicine; PCP Internal Medicine; Visit Provider Internal Medicine
DX: I21.4 Non-ST elevation (NSTEMI) myocardial infarction (principal); E78.00 Pure hypercholesterolemia, unspecified; I25.118 Atherosclerotic heart disease of native coronary artery with other forms of angina pectoris; R77.8 Other specified abnormalities of plasma proteins; I45.5 Other specified heart block; R00.2 Palpitations; I12.9 Hypertensive chronic kidney disease with stage 1 through stage 4 chronic kidney disease, or unspecified chronic kidney disease; E11.22 Type 2 diabetes mellitus with diabetic chronic kidney disease; N18.31 Chronic kidney disease, stage 3a; I11.0 Hypertensive heart disease with heart failure; I50.22 Chronic systolic (congestive) heart failure; I50.84 End stage heart failure; F17.210 Nicotine dependence, cigarettes, uncomplicated; Z79.82 Long term (current) use of aspirin; Z79.84 Long term (current) use of oral hypoglycemic drugs; Z95.1 Presence of aortocoronary bypass graft
CPT/HCPCS: 36415; 36416; 80048; 80053; 82962; 83735; 83880; 84100; 84484; 85025; 85378; 85610; 85730; 93005; 93306; 94640; 96365; 96372; 99285; G0378; J1650; J1815; J3475; J3535; J7030

== ENCOUNTER 2021-07-30 16:22 | Inpatient (IN) | payer MEDICARE, SELFPAY ==
[2021-07-30] VITALS (10 sets, daily range): BP systolic 140–192; BP diastolic 62–81; PULSE 79–106; RESP 17–22; TEMP 36.6–37.1; O2SAT 93–98; BMI 27.6
--- NOTE | 2021-07-30 16:23 | XRR_ITS ---
PROCEDURE INFORMATION: Exam: XR Chest Exam date and time: 07/30/2021 4:23 PM Age: 66 years old Clinical indication: Pain; Other: Not specified; Prior surgery; Surgery type: Bypass; Patient HX: History--cp since 2pm today; Additional info: Chest pain TECHNIQUE: Imaging protocol: XR of the chest. Views: 1 view. Total images: 1 COMPARISON: CR XR chest 1V portable [id number] 12/31/2020 4:54 AM FINDINGS: Lungs: No visible active interstitial or alveolar airspace disease. Rare calcified granuloma of antecedent disease. Pleural spaces: No pleural effusion. No pneumothorax. Heart/Mediastinum: Cardiac structures in configuration with arteriosclerosis. Status post sternotomy chest and CABG. Bones/joints: Unremarkable for age. XR/XR chest 1V portable [id number] IMPRESSION: Nonacute.
--- NOTE | 2021-07-30 16:23 | ECG_ITS ---
[facility] Test Date: 2021-07-30 Pat Name: Luis Alfredo Thompson Department: Room: Gender: Male Academic Services Professional: : 1955 Requested By: Ignacio Estrada Order Number: [id number] aJck MD: Francis Israel M.D. Measurements Intervals [place] Rate: 98 P: 84 SC: 119 QRS: 42 QRSD: 122 T: 63 QT: 363 QTc: 465 Interpretive Statements SINUS RHYTHM WITH SHORT SC INTERVAL WITH OCCASIONAL VENTRICULAR PREMATURE COMPLEXES ANTEROSEPTAL MYOCARDIAL INFARCTION , OF INDETERMINATE AGE [40+ ms Q WAVE IN V1-V4] ST DEPRESSION, CONSIDER SUBENDOCARDIAL INJURY [0.1+ mV ST DEPRESSION] Compared to ECG 07/16/2021 13:17:14 Short SC interval now present ST (T wave) deviation now present Ectopic atrial rhythm no longer present T-wave abnormality no longer present Possible ischemia no longer present Myocardial infarct finding still present Electronically Signed On 07-31-2021 8:46:26 DIRECTOR PRODUCT DEVELOPMENT by Francis Israel M.D. [id number]
[2021-07-30 16:56] LABS: Basophils % 0.3 %; Eosinophils # 0.1 10^3/uL (0.0-0.8); Eosinophils % 1.4 %; Hematocrit 41.5 % (42.0-52.0); Hemoglobin 12.8 g/dL (11.7-16.6); Lymphocytes # 1.5 10^3/uL (0.8-4.8); Lymphocytes % 16.2 %; Mean Corpuscular HGB Conc 30.8 g/dL (30.0-36.0); Mean Corpuscular Hemoglobin 29.6 pg (28.0-34.0); Mean Corpuscular Volume 95.8 fl (80-94); Monocytes # 0.6 10^3/uL (0.2-0.9); Monocytes % 6.5 %; Neutrophils % 75.3 %; Nucleated Red Blood Cells % 0 %; Platelet Count 402 10^3/cmm (130-400); Red Blood Count 4.33 10^6/uL (4.1-5.3); Red Cell Distribution Width 13.5 % (12.1-15.1); White Blood Count 9.1 10^3/uL (4.0-10.0)
--- NOTE | 2021-07-30 17:01 | W.ED.CHESTPA ---
HPI - Chest Pain General: Chief Complaint: Chest Pain Stated Complaint: CHEST PAIN/TOOK 3 NITRO FROM 3PM-4PM Time Seen by Provider: 07/30/21 16:42 History of Present Illness: HPI narrative: 66-year-old male presents emergency room complaining of chest pain. He states he is intermittently had chest pain since he had a stent placed. Earlier today while at rest he started having chest pain he rates pain 10 out of 10 he took 3 nitro he states he had relief of pain within 5 minutes of the first nitro but not completely so he took more. His pain now he reports at 210 he did take 1 more nitro while in route. Pain radiated into his back he was little bit sweaty and short of breath. Denies any vomiting. No recent illness no cough fever sweats or chills. Patient is a smoker as well as being diabetic. MD complaint: chest pain and chest discomfort Pertinent past history: coronary artery disease Onset (ago): hour(s) Timing of current episode: episodic Prior episodes: Yes Onset: during rest Pain location: left chest Pain radiation: right arm Severity: severe Quality: aching and heaviness Relieving factors: nitroglycerin and rest Exacerbating factors: exertion Associated symptoms: Reports diaphoresis and dyspnea; Deny abdominal pain, fever(s), leg edema, nausea, palpitations, sense of impending doom, syncope or vomiting Treatment prior to arrival: nitroglycerin Review of Systems Const: Reports: diaphoresis; Denies: fever(s) ENMT: Denies: throat pain, ear or mastoid pain, nasal discharge or nasal congestion Card: Denies: palpitations or syncope Resp: Reports: dyspnea GI: Denies: abdominal pain, nausea or vomiting : Denies: flank pain, dysuria, urinary frequency or urinary urgency Skin/Breast: Denies: rash or pruritus PFSH ED PFSH: Medical History CAD (coronary artery disease) CHF (congestive heart failure) Chronic kidney disease CKD (chronic kidney disease) stage 3, GFR 30-59 ml/min Diabetes mellitus, type II Essential hypertension Hypercholesterolemia Palpitations Surgical History History of appendectomy History of coronary artery stent placement Hx of CABG Family History Father Cancer Other Diabetes Social History Alcohol intake: current Alcohol intake frequency: few times a month Marital status: Number of children: 2 service: No Current gender identity: Male Physical Exam Const: COMMON NORMALS: no acute distress GENERAL APPEARANCE: cooperative and comfortable ORIENTATION/CONSCIOUSNESS: Yes awake, Yes oriented to person, Yes oriented to place and Yes oriented to time HENMT: COMMON NORMALS: normocephalic, atraumatic and hearing grossly normal bilaterally HEAD & SCALP: normocephalic and atraumatic Neck/C-Spine: COMMON NORMALS: no JVD Lymph: LYMPHATIC: no lymphadenopathy noted and no lymphedema noted Resp: AUSCULTATION: wheezes Cardio: COMMON NORMALS: no JVD, regular rate, regular rhythm and No murmurs present (Cardio) RATE: regular rate RHYTHM: regular rhythm GI: COMMON NORMALS: Soft to palpation and No hepatosplenomegaly present AUSCULTATION: Yes normoactive bowel sounds PALPATION: Yes Soft to palpation, No Tenderness to palpation present (GI), No Guarding due to palpation present (GI) and Yes No hepatosplenomegaly present Extremity: COMMON NORMALS: normal to inspection, capillary refill normal, no clubbing, cyanosis or edema, no calf tenderness and no pedal edema Neuro: SENSORIUM/ORIENTATION: Yes oriented to person, Yes oriented to place and Yes oriented to time Skin: COMMON NORMALS: no rashes or lesions noted GENERAL SKIN EXAM: no rashes or lesions noted Course Vital Signs: Vital signs: Vital Signs Temperature 97.7 F 08/04/21 16:01 Pulse Rate 88 08/04/21 16:01 Respiratory Rate 18 08/04/21 16:01 Blood Pressure 135/57 08/04/21 16:01 Pulse Oximetry 89 L 08/04/21 16:01 MDM - Chest Pain MDM Narrative: Medical decision making narrative: Initial EKG shows lateral ST depression as well as some mild inferior depression question a little bit ST depression in V2 and 3 showed cardiology they did not feel it met criteria at this point. He did have complete resolution of chest pain with nitro here in the emergency room he was given aspirin. His second troponin has a significant delta discussed with hospitalist patient will be admitted. He also has an acute on chronic kidney injury. Lab Data: Labs: Lab Results 07/30/21 07/30/21 07/30/21 16:48 16:48 16:48 WBC 9.1 10^3/uL 10^3/ uL (4.0-10.0) RBC 4.33 10^6/uL 10^6 /uL (4.1-5.3) Hgb 12.8 g/dL g/dL (11.7-16.6) Hct 41.5 % L % (42.0-52.0) MCV 95.8 fl H fl (80-94) MCH 29.6 pg pg (28.0-34.0) MCHC 30.8 g/dL g/dL (30.0-36.0) RDW 13.5 % % (12.1-15.1) Plt Count 402 10^3/cmm H 10 ^3/cmm (130-400) MPV 10.0 fL fL (7.4-10.4) Neut % (Auto) 75.3 % % Lymph % (Auto) 16.2 % % [place] % (Auto) 6.5 % % Eos % (Auto) 1.4 % % Baso % (Auto) 0.3 % % Neut # (Auto) 6.80 10^3/uL 10^3 /uL (1.8-7.7) Lymph # (Auto) 1.5 10^3/uL 10^3/ uL (0.8-4.8) [place] # (Auto) 0.6 10^3/uL 10^3/ uL (0.2-0.9) Eos # (Auto) 0.1 10^3/uL 10^3/ uL (0.0-0.8) Baso # (Auto) 0.0 10^3/uL 10^3/ uL (0.0-0.1) Nucleated RBC % (a uto) 0 % % Nucleated RBCs # 0.0 /100WBC /100W BC Sodium 138 mmol/L mmol/L (136-145) Potassium 4.6 mmol/L mmol/L (3.5-5.1) Chloride 103 mmol/L mmol/L (98-107) Carbon Dioxide 19 mmol/L L mmol/ L (22-29) Anion Gap 20.6 H (5-19) BUN 24 mg/dL H mg/dL (8-23) Creatinine 1.8 mg/dL H mg/dL (0.7-1.2) GFR Calculation 37.8 mL/min L mL/ min (90-130) Glucose 355 mg/dL H mg/dL (65-115) Calculated Osmolal ity 304 mOsm/kg H mOs m/kg (285-295) Calcium 8.0 mg/dL L mg/dL (8.5-10.5) Total Bilirubin 0.2 mg/dL mg/dL (0.15-1.2) AST 16 U/L U/L (0-40) ALT 13 U/L U/L (0-41) Alkaline Phosphata se 85 IU/L IU/L (40-130) Troponin T Baselin e 57 ng/L H ng/L (0-15) Troponin T 120 Min [place] Delta Troponin T Total Protein 6.4 g/dL L g/dL (6.6-8.7) Albumin 3.5 g/dL g/dL (3.5-5.2) Globulin 2.9 g/dL g/dL (1.3-4.6) 07/30/21 18:35 WBC RBC Hgb Hct MCV MCH MCHC RDW Plt Count MPV Neut % (Auto) Lymph % (Auto) [place] % (Auto) Eos % (Auto) Baso % (Auto) Neut # (Auto) Lymph # (Auto) [place] # (Auto) Eos # (Auto) Baso # (Auto) Nucleated RBC % (a uto) Nucleated RBCs # Sodium Potassium Chloride Carbon Dioxide Anion Gap BUN Creatinine GFR Calculation Glucose Calculated Osmolal ity Calcium Total Bilirubin AST ALT Alkaline Phosphata se Troponin T Baselin e Troponin T 120 Min [place] 95.88 ng/L H ng/L (0-15) Delta Troponin T 38.88 ABS# H* ABS # (0-10) Total Protein Albumin Globulin Discharge Plan Discharge Patient Disposition: Admitted As Inpatient Admit Provider: Antony Fink Clinical Impression: Non-ST elevation CT (NSTEMI), Renal failure (ARF), acute on chronic, Diabetes mellitus, type II, CAD (coronary artery disease), Essential hypertension Condition: Stable Discharge Diet: Cardiac Discharge Activity: Increase activity as tolerated Coding Level of Care Code ED Insurance Loss Adjuster for [place] Octavio
[2021-07-30 17:15] LABS: Troponin(5th) Baseline 57 ng/L (0-15)
[2021-07-30] MEDS: nitroglycerin 1 gm/inch oint Pkt 1 INCH TOPICAL (17:15)
[2021-07-30] MEDS: metoprolol tartrate 1 mg/1 mL SDV 5 mL 2.5 MG IVP (17:15)
[2021-07-30 17:29] LABS: Alanine Aminotransferase 13 U/L (0-41); Albumin Level 3.5 g/dL (3.5-5.2); Alkaline Phosphatase 85 IU/L (40-130); Blood Urea Nitrogen 24 mg/dL (8-23); Carbon Dioxide 19 mmol/L (22-29); Chloride 103 mmol/L (98-107); Globulin 2.9 g/dL (1.3-4.6); Glomerular Filtration Rate 37.8 mL/min (90-130); Glucose 355 mg/dL (65-115); Osmolality Calculated 304 mOsm/kg (285-295); Sodium 138 mmol/L (136-145); Total Bilirubin 0.2 mg/dL (0.15-1.2); Total Protein 6.4 g/dL (6.6-8.7)
[2021-07-30 17:38] LABS: Anion Gap 20.6 (5-19); Aspartate Amino Transferase 16 U/L (0-40); Potassium 4.6 mmol/L (3.5-5.1)
--- NOTE | 2021-07-30 17:40 | PC.PHAR ---
pt and pts verified pts medications-pt and pts states the carvedilol 6.25mg bid filled on 06/2921 30d/s,amlodipine 5mg bid filled on 06/26/21 90d/s and hcyz 25mg daily filled on 02/26/21 90d/s states those medications were all dced-
[2021-07-30] MEDS: aspirin 81 mg Chew Tablet 324 MG PO (18:05)
[2021-07-30] MEDS: sodium chloride 0.9% 1,000 ML 999 ML IV (18:05)
--- NOTE | 2021-07-30 18:45 | ECG_ITS ---
[facility] Test Date: 2021-07-30 Pat Name: Luis Alfredo Thompson Department: Room: 104 Gender: Male Educational Psychology Teacher: : 1955 Requested By: Antony Fink Order Number: [id number] Jack MD: Francis Israel M.D. Measurements Intervals [place] Rate: 77 P: 76 TN: 173 QRS: 5 QRSD: 118 T: 33 QT: 391 QTc: 444 Interpretive Statements SINUS RHYTHM SEPTAL MYOCARDIAL INFARCTION , OF INDETERMINATE AGE [40+ ms Q WAVE IN V1/V2] Compared to ECG 07/30/2021 18:36:31 T-wave abnormality no longer present Possible ischemia no longer present Myocardial infarct finding still present Electronically Signed On 07-31-2021 8:54:41 SOLID WASTE TECHNICIAN by Francis Israel M.D. [id number]
--- NOTE | 2021-07-30 18:46 | PM.HP ---
Providers/Chief Complaint Admitting Physician: Antony Fink MD Primary Care Provider: Joce Hodge MD Chief Complaint: CHEST PAIN/TOOK 3 NITRO FROM 3PM-4PM History of Present Illness Luis Alfredo Thompson is a 66 year old male with past medical history of hypertension, diabetes ,dyslipidemia, smoking, coronary artery disease status post stent in June 2021 (Proximal Left Anterior Descending to Mid Left Anterior Descending) CABG , currently under evaluation for pacemaker placement for significant pauses up to 6 seconds. No significant pauses while awake. Currently awaiting sleep study to rule out any underlying obstructive sleep apnea contributing to significant pauses, pauses were discovered on recent event monitor which she wore for [address] Somers as well as Dr. King both as an outpatient. Came in today with chief complaint of substernal chest pain, squeezing type, 8 out of 10 in severity, nonradiating, Started this morning, while he was having the chest pain he took close to 4 nitro without any significant relief. Patient is also complaining of significant chest pain with minimal exertion. Along with chest pain he is also complaining of dizziness and lightheadedness is not new for him, it is going on for few months, he denies any passing out, denies any palpitation, shortness of breath, fever, cough, nausea diaphoresis vomiting. Upon arrival in the ER he was worked up for above-mentioned complaint. Pertinent imaging studies: X-ray chest: No acute finding EKG: sinus rhythm , ST DEVIATION AND MODERATE T-WAVE ABNORMALITY, CONSIDER LATERAL ISCHEMIA Pertinent labs: WBC 9.1 H&H:12/41, PLT : 402, serum sodium 138 serum potassium 4.6, BUN serum creatinine 24/ 1.8 , Troponin trend: Baseline troponin: 57, 2h troponin : 95 2-hour delta: 38 , Patient received Nitropaste in the ER, which helped him with the chest pain. Review of Systems Const: Denies: fever(s), chills, body aches, change in appetite or diaphoresis Card: Denies: palpitations, edema, swelling of feet/ankles or orthopnea Resp: Denies: dyspnea, productive cough, wheezing or pain on inspiration GI: Denies: abdominal pain, nausea, vomiting, diarrhea or constipation : Denies: flank pain or difficulty urinating Musc: Denies: back pain, extremity pain or extremity swelling Neuro: Denies: headache(s), difficulty walking or confusion Medications/Allergies Home Medications Medication Instructions Recorded Confirmed Last Taken Type blood sugar diagnostic See Rx Instructions .ROUTE 03/15/20 07/30/21 Unknown Rx .COMPLEX #100 strip metformin 1,000 mg tablet 1,000 mg PO BID #180 tab 09/02/20 07/30/21 07/30/21 Rx loratadine 10 mg tablet 10 mg PO DAILY 09/12/20 07/30/21 06/15/21 08:00 History nitroglycerin 0.4 mg sublingual 0.4 mg SUBLINGUAL Q5M PRN #25 tab 04/18/21 07/30/21 07/30/21 16:20 Rx tablet simethicone 250 mg capsule 250 mg PO QID PRN 04/18/21 07/30/21 07/30/21 15:30 History glimepiride 4 mg tablet 4 mg PO BID #180 tab 06/26/21 07/30/21 07/30/21 13:00 Rx albuterol sulfate [ProAir HFA] 2 puff INHALATION Q4H PRN 07/15/21 07/30/21 Unknown History ascorbic acid (vitamin C) [Vitamin 500 mg PO QAM 07/15/21 07/30/21 07/30/21 History C] aspirin 81 mg PO QAM 07/15/21 07/30/21 07/30/21 History calcium carbonate 500 mg PO PRN PRN 07/15/21 07/30/21 Unknown History clonidine HCl 0.2 mg PO BID 07/15/21 07/30/21 07/30/21 08:00 History vitamin E 400 unit PO QAM 07/15/21 07/30/21 07/30/21 History furosemide [Lasix] 20 mg PO DAILY PRN #30 tab 07/17/21 07/30/21 Unknown Rx hydralazine 100 mg PO TID #405 tab 07/17/21 07/30/21 07/30/21 13:00 Rx prazosin 1 mg capsule 1 mg PO BID #60 cap 07/21/21 07/30/21 07/30/21 Rx tizanidine 4 mg tablet 4 mg PO QAM PRN 07/21/21 07/30/21 Unknown History vitamins A,C,X-abki-rluvpa 14,320 1 cap PO DAILY 07/21/21 07/30/21 Unknown History unit-226 mg-200 unit capsule clopidogrel 75 mg PO QAM 07/30/21 07/30/21 07/30/21 08:00 History isosorbide mononitrate 60 mg PO BID 07/30/21 07/30/21 07/30/21 08:00 History pantoprazole 40 mg PO DAILY@12 07/30/21 07/30/21 07/30/21 History rosuvastatin 5 mg PO DAILY@12 07/30/21 07/30/21 07/30/21 History Allergies Allergy/AdvReac Type Severity Reaction Status Date / Time Penicillins Allergy Unknown Verified 07/30/21 17:34 PFSH Acute PFSH: Medical History CAD (coronary artery disease) CHF (congestive heart failure) Chronic kidney disease Diabetes mellitus, type II Essential hypertension Hypercholesterolemia Palpitations Surgical History History of appendectomy History of coronary artery stent placement Hx of CABG Family History Father Cancer Other Diabetes Social History Alcohol intake: current Alcohol intake frequency: few times a month Marital status: Number of children: 2 service: No Current gender identity: Male Vitals/I&O/Wt Last Vital Signs Temp 98.7 F 07/30/21 16:26 Pulse 88 07/30/21 18:10 Resp 21 H 07/30/21 18:10 BP 140/62 07/30/21 18:10 Pulse Ox 96 07/30/21 18:10 Weight last 48 hrs Weight 73.028 kg Physical Exam Const: COMMON NORMALS: patient oriented x3 HENMT: COMMON NORMALS: normocephalic and atraumatic HEAD & SCALP: normocephalic and atraumatic Resp: COMMON NORMALS: clear to auscultation bilaterally AUSCULTATION: clear to auscultation bilaterally Cardio: COMMON NORMALS: regular rate, regular rhythm, S1 normal heart sound present, S2 normal heart sound present, No gallops present (Cardio), No murmurs present (Cardio), No rub (Cardio) and Peripheral pulses 2+ throughout RATE: regular rate RHYTHM: regular rhythm HEART SOUNDS: S1 normal heart sound present and S2 normal heart sound present PERIPHERAL PULSES: Peripheral pulses 2+ throughout GI: COMMON NORMALS: Normal to inspection, nondistended, normoactive bowel sounds present, Soft to palpation, non-tender, No hepatosplenomegaly present and no masses AUSCULTATION: Yes normoactive bowel sounds PALPATION: Yes Soft to palpation and Yes No hepatosplenomegaly present RECTAL EXAM: Yes deferred Extremity: COMMON NORMALS: no clubbing, cyanosis or edema and no pedal edema Neuro: COMMON NORMALS: patient oriented x3 Data : 07/30/21 16:48 07/30/21 16:48 A&P Assessment and plan (1) NSTEMI (non-ST elevated myocardial infarction): Status: Acute (2) Sick sinus syndrome: Status: Acute (3) Diabetes mellitus, type II: Status: Acute Qualifiers: Diabetes mellitus terminal block assembler insulin use: without snf use Diabetes mellitus complication status: with kidney complications Diabetes mellitus complication detail: with chronic kidney disease Chronic kidney disease stage: stage 3 (moderate) Chronic kidney disease stage 3 subtype: stage 3a (GFR 45-59) Qualified Code(s): E11.22 - Type 2 diabetes mellitus with diabetic chronic kidney disease; N18.31 - Chronic kidney disease, stage 3a (4) CAD (coronary artery disease): Status: Acute Qualifiers: Coronary Disease-Associated Artery/Lesion type: [place] artery [place] vs. transplanted heart: [place] heart Associated angina: with other forms of angina Qualified Code(s): I25.118 - Atherosclerotic heart disease of [place] coronary artery with other forms of angina pectoris (5) Essential hypertension: Status: Chronic (6) Hypercholesterolemia: Status: Acute (7) CKD (chronic kidney disease) stage 3, GFR 30-59 ml/min: Status: Acute Additional A&P Information 66 year old male with past medical history of hypertension, diabetes ,dyslipidemia, smoking, coronary artery disease status post stent in June 2021 (Proximal Left Anterior Descending to Mid Left Anterior Descending) CABG , currently under evaluation for pacemaker placement for significant pauses up to 6 seconds. No significant pauses while awake. Currently awaiting sleep study to rule out any underlying obstructive sleep apnea contributing to significant pauses, pauses were discovered on recent event monitor which she wore for 21 days. #NSTEMI: Likely type I: Recently 2D echo: Normal LV cavity size and function, LVEF 55% , grade 2 diastolic dysfunction, Moderately thickened mitral valve. Severe mitral annular calcification. No mitral valve stenosis. Trace mitral valve regurgitation. Continue telemetry monitoring Serial EKG Follow 6-hour troponin Possible repeat limited 2D echo Continue therapeutic Lovenox Continue aspirin Plavix statin, continue Imdur If chest pain persist will put on nitro drip N.p.o. after midnight Cardiology consult in a.m. #CKD stage III: Serum creatinine is:AT Baseline Continue to monitor BMP Avoid nephrotoxic's Intake output charting #Coronary artery disease status post stent #Sick sinus syndrome: Continue telemetry monitoring Patient is currently being worked up as an outpatient for possible pacemaker placement Currently awaiting sleep study. #HTN : Continue home medicine #Diabetes: Sliding scale insulin, carbohydrate consistent diet, fingerstick glucose #CODE STATUS: Full code DVT prophylaxis: On Lovenox Attestations Medical Necessity Statement*: Patient is to be in hospital for management of NSTEMI. Anticipated length of stay greater than 2 midnights. Time Spent in Patient Care: Greater than 35 minutes (>than 50% of time spent in counselling and/or direct pt care on unit). Coding Level of Care Code Acute Applied Researcher for Chg Fwd Exam Detailed Diagnoses NSTEMI (non-ST elevated myocardial infarction) I21.4 Sick sinus syndrome I49.5 Diabetes mellitus, type II E11.22; N18.31 Diabetes mellitus terminal block assembler insulin use: without terminal block assembler use Diabetes mellitus complication status: with kidney complications Diabetes mellitus complication detail: with chronic kidney disease Chronic kidney disease stage: stage 3 (moderate) Chronic kidney disease stage 3 subtype: stage 3a (GFR 45-59) CAD (coronary artery disease) I25.118 Coronary Disease-Associated Artery/Lesion type: [place] artery [place] vs. transplanted heart: [place] heart Associated angina: with other forms of angina Essential hypertension I10 Hypercholesterolemia E78.00 CKD (chronic kidney disease) stage 3, GFR 30-59 ml/min N18.30
[2021-07-30 18:59] LABS: Troponin 5 2HR Delta 38.88 ABS# (0-10)
[2021-07-30 19:00] LABS: Troponin 5 2HR 95.88 ng/L (0-15)
[2021-07-30] MEDS: sodium chloride 0.9% 1,000 ML 75 ML IV (20:37)
[2021-07-30] MEDS: enoxaparin 80 mg/0.8 mL Syringe 70 MG SUBCUT (20:37)
[2021-07-30] MEDS: hyDRALAzine 50 mg Tablet 100 MG PO (21:14)
[2021-07-30] MEDS: insulin lispro 100 unit/1 mL SUBCUT (21:14)
[2021-07-30 21:15] LABS: Glucose Point of Care 154 mg/dL (70-110)
--- NOTE | 2021-07-30 22:23 | ECG_ITS ---
[facility] Test Date: 2021-07-30 Pat Name: Luis Alfredo Thompson Department: Room: Gender: Male Awning Maker: : 1955 Requested By: Ignacio Estrada Order Number: [id number] Jack MD: Francis Israel M.D. Measurements Intervals [place] Rate: 82 P: 76 AR: 173 QRS: -1 QRSD: 117 T: 72 QT: 391 QTc: 458 Interpretive Statements SINUS RHYTHM SEPTAL MYOCARDIAL INFARCTION , OF INDETERMINATE AGE [40+ ms Q WAVE IN V1/V2] ST DEVIATION AND MODERATE T-WAVE ABNORMALITY, CONSIDER LATERAL ISCHEMIA [-0.1+ mV T-WAVE IN I/aVL/V5/V6] Compared to ECG 07/30/2021 16:31:51 T-wave abnormality now present Possible ischemia now present Short AR interval no longer present ST (T wave) deviation no longer present Myocardial infarct finding still present Electronically Signed On 07-31-2021 9:08:52 DEVOPS SOLUTIONS ARCHITECT by Francis Israel M.D. [id number]
[2021-07-30 23:19] LABS: Troponin 5 6HR 262.2 ng/L (0-15); Troponin 5 6HR Delta 205.2 ng/L (0-12)
[2021-07-31] VITALS (57 sets, daily range): BP systolic 134–167; BP diastolic 54–78; PULSE 85–120; RESP 15–25; TEMP 36.6–37; O2SAT 93–98
[2021-07-31 04:11] LABS: Basophils % 0.4 %; Eosinophils # 0.1 10^3/uL (0.0-0.8); Eosinophils % 1.1 %; Hematocrit 35.8 % (42.0-52.0); Hemoglobin 11.1 g/dL (11.7-16.6); Lymphocytes # 1.5 10^3/uL (0.8-4.8); Lymphocytes % 13.1 %; Mean Corpuscular Hemoglobin 29.5 pg (28.0-34.0); Mean Corpuscular Volume 95.2 fl (80-94); Mean Platelet Volume 9.8 fL (7.4-10.4); Monocytes # 0.8 10^3/uL (0.2-0.9); Neutrophils # 8.68 10^3/uL (1.8-7.7); Nucleated Red Blood Cells % 0 %; Platelet Count 362 10^3/cmm (130-400); Red Blood Count 3.76 10^6/uL (4.1-5.3); Red Cell Distribution Width 13.7 % (12.1-15.1); White Blood Count 11.1 10^3/uL (4.0-10.0)
[2021-07-31 04:30] LABS: Alanine Aminotransferase 9 U/L (0-41); Albumin Level 2.8 g/dL (3.5-5.2); Alkaline Phosphatase 68 IU/L (40-130); Anion Gap 15.6 (5-19); Aspartate Amino Transferase 21 U/L (0-40); Blood Urea Nitrogen 20 mg/dL (8-23); Calcium 7.3 mg/dL (8.5-10.5); Carbon Dioxide 20 mmol/L (22-29); Chloride 111 mmol/L (98-107); Globulin 2.5 g/dL (1.3-4.6); Glomerular Filtration Rate 43.3 mL/min (90-130); Glucose 59 mg/dL (65-115); Osmolality Calculated 296 mOsm/kg (285-295); Potassium 3.6 mmol/L (3.5-5.1); Sodium 143 mmol/L (136-145); Total Bilirubin 0.2 mg/dL (0.15-1.2); Total Protein 5.3 g/dL (6.6-8.7)
[2021-07-31 04:34] LABS: Creatinine Clr Calc Pharmacy 40.9041
[2021-07-31 04:38] LABS: Magnesium 1.6 mg/dL (1.7-2.3); Thyroid Stimulating Hormone 2.17 uIU/mL (0.27-4.20)
[2021-07-31] MEDS: aspirin 81 mg EC Tablet PO (05:03)
[2021-07-31] MEDS: clopidogrel 75 mg Tablet PO (05:03)
[2021-07-31 05:06] LABS: NT Pro B Type Natriuretic Pept 4745 pg/mL (0-125)
--- NOTE | 2021-07-31 06:36 | PC.NURSE ---
Patient's blood glucose 65. Patient is alert and awake. Patient provided orange juice.
[2021-07-31 06:37] LABS: Glucose Point of Care 65 mg/dL (70-110)
[2021-07-31 07:12] LABS: Glucose Point of Care 107 mg/dL (70-110)
--- NOTE | 2021-07-31 07:20 | ECG_ITS ---
[facility] Test Date: 2021-07-31 Pat Name: Luis Alfredo Thompson Department: Room: 104 Gender: Male Cake Froster: : 1955 Requested By: Antony Fink Order Number: [id number] Jack MD: Francis Israel M.D. Measurements Intervals [place] Rate: 87 P: 75 UT: 151 QRS: 11 QRSD: 117 T: 47 QT: 372 QTc: 448 Interpretive Statements SINUS RHYTHM SEPTAL MYOCARDIAL INFARCTION , PROBABLY OLD [40+ ms Q WAVE IN V1/V2] Compared to ECG 07/30/2021 21:28:09 No significant changes Electronically Signed On 07-31-2021 8:45:06 MARKET DEVELOPER by Francis Israel M.D. [id number]
[2021-07-31] MEDS: hyDRALAzine 50 mg Tablet 100 MG PO ×2 (07:59→15:36)
[2021-07-31] MEDS: prazosin 1 mg Capsule PO ×2 (07:59→21:03)
--- NOTE | 2021-07-31 08:30 | USCV_ITS ---
Luis Alfredo Thompson Age: 66 Gender: M : 1955 Exam Date: 07/31/2021 08:41 Ordering Phys: Antony Fink MD Technologist: [place] [facility] [place]: [place] BP: 167 / 78 HR: 95 Rhythm: Sinus Technical Quality: Adequate MEASUREMENTS (Male / Female) Normal Values 2D ECHO LV Diastolic Diameter PLAX 5.6 cm 4.2 - 5.9 / 3.9 - 5.3 cm LV Systolic Diameter PLAX 3.1 cm IVS Diastolic Thickness 1.0 cm 0.6 - 1.0 / 0.6 - 0.9 cm IVS Systolic Thickness 1.5 cm LVPW Diastolic Thickness 1.1 cm 0.6 - 1.0 / 0.6 - 0.9 cm LVPW Systolic Thickness 1.1 cm LVOT Diameter 2.0 cm LV Ejection Fraction 2D Teich 73.3 % LV Ejection Fraction MOD 2C 77.9 % LV Ejection Fraction 2C AL 77.4 % LA Diameter 4.0 cm LA Width 4.7 cm LA Height 4.8 cm RA Width 4.0 cm RA Height 4.0 cm Aorta at Sinotubular Diameter 2.6 cm M-MODE LV Diastolic Diameter MM 6.3 cm 4.2 - 5.9 / 3.9 - 5.3 cm LV Systolic Diameter MM 4.2 cm LV Ejection Fraction MM Teich 60.5 % IVS Diastolic Thickness MM 1.0 cm 0.6 - 1.0 / 0.6 - 0.9 cm IVS Systolic Thickness MM 1.7 cm LVPW Diastolic Thickness MM 1.1 cm 0.6 - 1.0 / 0.6 - 0.9 cm LVPW Systolic Thickness MM 1.7 cm RV Diastolic Diameter MM 1.8 cm MV E Point Septal Separation 0.7 cm FINDINGS Left Ventricle Normal left ventricular size and systolic function with no regional wall motion abnormalities. Left ventricular ejection fraction is estimated at 60%. Right Ventricle Normal right ventricular size and systolic function. Right Atrium Normal right atrial size. Left Atrium Mildly increased left atrial size. Mitral Valve Thickened mitral valve. Aortic Valve Aortic valve not well visualized. Tricuspid Valve Tricuspid valve not well visualized. Pulmonic Valve Pulmonic valve not well visualized. Pericardium No pericardial effusion. Aorta Normal-sized aortic root. CONCLUSIONS 1. Normal left ventricular size and systolic function with no regional wall motion abnormalities. Left ventricular ejection fraction is estimated at 60%. 2. Normal right ventricular size and systolic function. 3. When compared to previous echocardiogram dated 07/16/2021, there may not have been an significant change. Saba Sims MD (Electronically Signed) Final Date: 31 July 2021 17:38 S
[2021-07-31] MEDS: enoxaparin 80 mg/0.8 mL Syringe 70 MG SUBCUT (08:44)
--- NOTE | 2021-07-31 09:35 | PM.CONSULT ---
Providers/Reason For Consult Consulting Physician/Specialty*: Dr. Sims, cardiology Reason for Consult*: NSTEMI Attending Physician: Antony Fink MD Primary Care Provider: Joce Hodge MD History of Present Illness History of Present Illness Luis Alfredo Thompson is a 66 year old male with past medical history of coronary artery disease with history of CABG and recent PCI on 17 June to LAD, congestive heart failure, chronic kidney disease stage III, diabetes mellitus and hyperlipidemia. Patient also underwent recent event monitor and was found to have multiple prolonged pauses as long as 6 seconds (episodes mostly happen while sleeping). He was supposed to undergo outpatient sleep study. Presented to hospital with complaints of retrosternal chest discomfort described as squeezing a 8/10 in severity without any radiation. Pain started yesterday morning. Patient took 4 nitros without any significant relief and hence presented to the ER for further evaluation. Baseline troponin T on arrival was 57 that increased to 96 and 6-hour troponin T was 262. NT proBNP of 4745. Chest x-ray with no acute cardiopulmonary abnormality. Review of Systems Const: Denies: fever(s), chills or change in appetite Card: Reports: chest pain and swelling of feet/ankles; Denies: palpitations, edema or orthopnea Resp: Denies: dyspnea, productive cough, wheezing or pain on inspiration GI: Denies: abdominal pain, nausea, vomiting, diarrhea or constipation : Denies: difficulty urinating Musc: Denies: back pain, extremity pain or extremity swelling Neuro: Denies: headache(s), difficulty walking or confusion Psych: Denies: anxiety or depression Nura/Lymph: Denies: petechiae or purpura Meds/Allergies Home Medications and Allergies Home Medications Medication Instructions Recorded Confirmed Last Taken Type blood sugar diagnostic See Rx Instructions .ROUTE 03/15/20 07/30/21 Unknown Rx .COMPLEX #100 strip metformin 1,000 mg tablet 1,000 mg PO BID #180 tab 09/02/20 07/30/21 07/30/21 Rx loratadine 10 mg tablet 10 mg PO DAILY 09/12/20 07/30/21 06/15/21 08:00 History nitroglycerin 0.4 mg sublingual 0.4 mg SUBLINGUAL Q5M PRN #25 tab 04/18/21 07/30/21 07/30/21 16:20 Rx tablet simethicone 250 mg capsule 250 mg PO QID PRN 04/18/21 07/30/21 07/30/21 15:30 History glimepiride 4 mg tablet 4 mg PO BID #180 tab 06/26/21 07/30/21 07/30/21 13:00 Rx albuterol sulfate [ProAir HFA] 2 puff INHALATION Q4H PRN 07/15/21 07/30/21 Unknown History ascorbic acid (vitamin C) [Vitamin 500 mg PO QAM 07/15/21 07/30/21 07/30/21 History C] aspirin 81 mg PO QAM 07/15/21 07/30/21 07/30/21 History calcium carbonate 500 mg PO PRN PRN 07/15/21 07/30/21 Unknown History clonidine HCl 0.2 mg PO BID 07/15/21 07/30/21 07/30/21 08:00 History vitamin E 400 unit PO QAM 07/15/21 07/30/21 07/30/21 History furosemide [Lasix] 20 mg PO DAILY PRN #30 tab 07/17/21 07/30/21 Unknown Rx hydralazine 100 mg PO TID #405 tab 07/17/21 07/30/21 07/30/21 13:00 Rx prazosin 1 mg capsule 1 mg PO BID #60 cap 07/21/21 07/30/21 07/30/21 Rx tizanidine 4 mg tablet 4 mg PO QAM PRN 07/21/21 07/30/21 Unknown History vitamins A,C,W-irlo-qbzawu 14,320 1 cap PO DAILY 07/21/21 07/30/21 Unknown History unit-226 mg-200 unit capsule clopidogrel 75 mg PO QAM 07/30/21 07/30/21 07/30/21 08:00 History isosorbide mononitrate 60 mg PO BID 07/30/21 07/30/21 07/30/21 08:00 History pantoprazole 40 mg PO DAILY@07/30/21 07/30/21 07/30/21 History rosuvastatin 5 mg PO DAILY@12 07/30/21 07/30/21 07/30/21 History Allergies Allergy/AdvReac Type Severity Reaction Status Date / Time Penicillins Allergy ALGY-Anaphy Verified 07/30/21 20:09 laxis cillins Allergy ALGY-Anaphy Uncoded 07/30/21 20:09 laxis Current Medications Current Medications Generic Name Dose Route Start Last Admin Trade Name Eduardo PRN Reason Stop Dose Admin Aspirin 81 mg 07/31/21 06:00 07/31/21 05:03 Aspirin 81 Mg Ec Tablet PO 81 mg QAM SUNSHINE Administration Clopidogrel Bisulfate 75 mg 07/31/21 06:00 07/31/21 05:03 Clopidogrel 75 Mg Tablet PO 75 mg QAM SUNSHINE Administration Enoxaparin Sodium 70 mg 07/31/21 08:30 07/31/21 08:44 Enoxaparin 80 Mg/0.8 Ml Syringe SUBCUT 70 mg Q12H SUNSHINE Administration Hydralazine HCl 100 mg 07/30/21 21:00 07/31/21 07:59 Hydralazine 50 Mg Tablet PO 100 mg TID SUNSHINE Administration Sodium Chloride 1,000 mls @ 75 mls/hr 07/30/21 18:45 07/31/21 08:54 Sodium Chloride 0.9% IV Not Given .[id number] SUNSHINE Insulin Human Lispro 0 unit 07/30/21 21:00 07/31/21 06:36 Insulin Lispro 100 Unit/1 Ml SUBCUT Not Given WM&BEDTIME SUNSHINE Protocol Prazosin HCl 1 mg 07/31/21 09:00 07/31/21 07:59 Prazosin 1 Mg Capsule PO 1 mg BID SUNSHINE Administration PFSH Acute PFSH: Medical History CAD (coronary artery disease) CHF (congestive heart failure) Chronic kidney disease Diabetes mellitus, type II Essential hypertension Hypercholesterolemia Palpitations Surgical History History of appendectomy History of coronary artery stent placement Hx of CABG Family History Father Cancer Other Diabetes Social History Alcohol intake: current Alcohol intake frequency: few times a month Marital status: Number of children: 2 service: No Current gender identity: Male Vitals/I&O/Wt Last Vital Signs Temp 97.9 F 07/31/21 03:17 Pulse 94 12/23/21 08:32 Resp 18 07/31/21 08:32 BP 167/78 07/31/21 03:17 Pulse Ox 93 07/31/21 08:32 07/30/21 07/31/21 07/31/21 22:59 06:59 14:59 Intake Total 1000 / 1000 480 / 1480 Output Total 200 / 200 475 / 675 Balance 800 / 800 5 / 805 Weight last 48 hrs Weight 160 lb Weight 161 lb Weight 161 lb Physical Exam Narrative: EXAM NARRATIVE: GENERAL: Averagely built and averagely nourished in no acute distress HEENT: Pupils equal round reactive to light. No pallor or icterus. NECK: No JVD. No carotid bruit. CARDIOVASCULAR SYSTEM: S1-S2 regular. No murmur or gallops. RESPIRATORY SYSTEM: Chest clear to auscultation. No wheezes rhonchi or rubs heard. No use of accessory muscles. ABDOMEN: Soft, nontender and nondistended. Normal bowel sounds present. EXTREMITIES: No cyanosis or clubbing. 2+ feet and leg edema. GINSENG FARMER: Patient is alert oriented ?3. No focal neurological deficits. Data Other Data: Other data: 07/16/21. echo complete 1-Normal left ventricular cavity size. Normal left ventricular systolic function. No regional wall motion abnormalities. Left ventricular ejection fraction is estimated at 55 %. Grade II/IV diastolic dysfunction, moderately elevated filling pressures. 2-Moderately thickened mitral valve. Severe mitral annular calcification. No mitral valve stenosis. Trace mitral valve regurgitation. 3-There is no pericardial effusion. 4-Pulmonary artery systolic pressure is within normal limits. 5-No significant change since the prior echocardiogram study of 06/05/2014. 06/17/21 [facility] w/PCI 1. There is total occlusion coronary artery disease with three vessel disease. 2. Two coronary grafts visualized: one graft patent, and one graft occluded. 3. Patient has prior CABG. 4. Proximal Left Anterior Descending to Mid Left Anterior Descending was treated with a Drug Eluting Stent. 5. IFR: After equalizing the distal and proximal pressure of FFR wire proximal to the lesion, mid LAD lesion was crossed with IFR wire at then end of two minutes IFR was recorded as 0.81, which is significant 05/15/21 Sestamibi Stress test 1. Nondiagnostic EKG changes with the LexiScan infusion due to baseline ST-Twave changes. 2. No LexiScan induced chest pain or cardiac arrhythmia. 3. Normal blood pressure and heart rate response. Medium to large area of old myocardial infarction noted in basal to distal inferior wall surrounded by large area of severe ischemia extending from inferior to inferolateral wall suggestive of lesion in dominant RCA or circumflex. EKG segment will be documented separately. A&P Assessment and plan (1) NSTEMI (non-ST elevated myocardial infarction): Typical chest pain with some ST depression in lateral leads. -PLan to proceed with [facility] with Dr Israel. -Risks and benefits were discussed with the patients. Alternate management options were discussed with the patient as well. Possible complications were reviewed with the patient as well. Plan is to proceed for the procedure at the earliest. -continue ASA, plavix, crestor and lovenox Status: Acute (2) CAD (coronary artery disease): Status: Acute Qualifiers: Associated angina: with other forms of angina Coronary Disease-Associated Artery/Lesion type: [place] artery [place] vs. transplanted heart: [place] heart Qualified Code(s): I25.118 - Atherosclerotic heart disease of [place] coronary artery with other forms of angina pectoris (3) CKD (chronic kidney disease) stage 3, GFR 30-59 ml/min: Status: Acute (4) Essential hypertension: BP elevated. Status: Chronic (5) Hypercholesterolemia: Status: Acute (6) Diabetes mellitus, type II: Status: Acute Qualifiers: Chronic kidney disease stage: stage 3 (moderate) Chronic kidney disease stage 3 subtype: stage 3a (GFR 45-59) Diabetes mellitus complication detail: with chronic kidney disease Diabetes mellitus complication status: with kidney complications Diabetes mellitus long-term insulin use: without long-term use Qualified Code(s): E11.22 - Type 2 diabetes mellitus with diabetic chronic kidney disease; N18.31 - Chronic kidney disease, stage 3a Additional A&P Information Recurrent pauses on monitor: not on AV júnior blockers H/O CABG x2 Thank you for allowing me to participate in patient's care. Please feel free to call with questions or concerns. Consult Attestations Time Spent in Patient Care: Greater than 35 minutes (>than 50% of time spent in counselling and/or direct pt care on unit). Coding Level of Care Code Acute Senior Packaging Engineer for g Fwd Diagnoses NSTEMI (non-ST elevated myocardial infarction) I21.4 CAD (coronary artery disease) I25.118 Associated angina: with other forms of angina Coronary Disease-Associated Artery/Lesion type: [place] artery [place] vs. transplanted heart: [place] heart CKD (chronic kidney disease) stage 3, GFR 30-59 ml/min N18.30 Essential hypertension I10 Hypercholesterolemia E78.00 Diabetes mellitus, type II E11.22; N18.31 Chronic kidney disease stage: stage 3 (moderate) Chronic kidney disease stage 3 subtype: stage 3a (GFR 45-59) Diabetes mellitus complication detail: with chronic kidney disease Diabetes mellitus complication status: with kidney complications Diabetes mellitus superintendent terminal insulin use: without superintendent terminal use
[2021-07-31] MEDS: calcium carbonate 500 mg Chew Tablet PO (09:39)
--- NOTE | 2021-07-31 10:32 | XACV_ITS ---
Exam Room: [facility] Ht: 163 cm Wt: 73 kg BSA: 1.83 m2 Gender: Male : 1955 Any Known Allergies: Penicillins Exam Priority: Routine Procedure(s): Procedure Description: Diagnostic procedure Procedure Description: PCI procedure Procedure Description: Venous Graft Catheterization Procedure Description: Drug Eluting Coronary Stent Procedure Description: PTCA Procedure Description: Coronary Angiography Diagnostic Cath Status: Urgent Diagnostic Findings * Left Main has mild 20% stenosis. * Left Anterior Descending has patent prior stent. Distal vessel is diffusely diseased. * Left circumflex artery is diffusely diseased. Has ostial to * proximal Circumflex: critical 95% stenosis, YOHAN: 3 flow. This artery was considered nonrevascularizable because of diffuse disease previously.. * SVG to PDA right after touchdown with PDA has a significant 90% stenosis. * P * osterior Descending Right: severe 90% stenosis, YOHAN: 3 flow. * Patient has 2 grafts. Only SVG to PDA was patent on recent cath. We did not inject SVG to OM again which is known occluded given patient's chronic kidney disease and need to reduce contrast use. * Coronary angiography shows right dominance. PCI Status: Urgent PCI Indication: NSTE - ACS Interventional Findings * Procedure details: We engaged SVG to PDA with multipurpose guide catheter. A 0.014 run-through guidewire was used to cross the PDA stenosis after achieving ACT of 250 s. We predilated the stenosis with 2.0 x 12 mm hmmm balloon. This was followed by placement of 2.25 x 12 mm resolute Rylee stent. At this time final angiogram was performed that showed excellent stent expansion, no residual stenosis and YOHAN-3 flow. Guidewire and guide catheter were removed. Patient left the Diaphragm Builder in a stable condition.. Conclusions 1. Severe multivessel [place] coronary artery disease. Left circumflex artery 2. has diffuse 3. disease with multiple critical 4. stenosis. 5. Will be treated medically. Severe stenosis of SVG to PDA after touchdown. Status post successful revascularization with DIAN x1. Prior LAD stent is patent. 6. Patient has 2 bypass grafts with known occluded SVG to OM. It was not injected to reduce contrast use given patient's CKD. 7. Patient has prior CABG. Recommendations * Transfer back to [facility]. * Aspirin and Plavix for atleast 1 year. * If continues having chest pain symptoms, we will add Ranexa as has significant diffuse disease of Left circumflex artery that can not be revascularized at this time. * Will need close follow up of the renal function as patient has CKD. * Outpatient cardiology follow up in 1 week. Interventional RX Recommendation: PCI w/o planned CABG Diagnostic RX Recommendation: PCI w/o planned CABG Anticoagulation: Heparin Pressures Phase:Rest AO : 139 / 66 ( 97 ) @ 9:43:00 AM 158 / 79 ( 115 ) @ 9:44:00 AM 169 / 81 ( 122 ) @ 9:54:00 AM 123 / 65 ( 90 ) @ 10:09:00 AM 152 / 63 ( 100 ) @ 10:12:00 AM Clinical Evaluation EBL: 5mL-10mL Procedural Details Procedure Consent Obtained. Current Diagnosis : NSTEMI. Pre-Procedure Time Out. Identified patient by full name and date of as verbalized by the patient/guarantor. Does the consent match the physician's order: Yes. Accurate & Complete Informed Consent: Yes. Inpatient/Outpatient History & Physical on Chart: Yes. If H&P is completed, is and addenduem needed: N/A; If yes, is the addendum complete: N/A. Visualize and Verify Site with Patient/Guarantor: N/A. Relevant Radiology Images available: Yes. The risks, benefits, and alternatives of sedation and/or procedure were discussed by physician. The patient agrees to continue. Procedure started. [facility] Clinical Fraility Score: 3: Managing Well. Diaphragm Builder Indications: ACS > 24 hours. Chest Pain Symptom Assessment: Typical Angina Symptoms. Correct patient, site and procedure confirmed by cath team. Current diagnosis: NSTEMI. PERRLA. Strong, equal hand physician gynecologist bilaterally. Lungs clear x 5 lobes. IV Site on Arrival: 18 gauge in the left anticubital. IV Fluids: 0.9% NaCl at KVO. 0 mL infused prior to geophysical laboratory chief. Physician arrived. Oxygen started at 2liters/min via nasal canula. bilateral groins was prepped with chloroprep then draped in the usual sterile fashion. Baseline sample Acquired. HR: 94 BPM. Physician scrubbed in. Immediate Pre-Procedure Time Out. Correct Patient: Yes; Correct Procedure: Yes; Correct Site: Yes; Correct Patient Position: Yes; Correct Supplies: Yes; Dried Flammable Prep: Yes; Blood Products Available: N/A;. Lidocaine 1% infiltrated to the right groin. Arterial access obtained with micropuncture set. contrast injected through the access needle. wire and needle out. Arterial access obtained with micropuncture set. wire and needle out. Lidocaine 1% infiltrated to the left groin. Arterial access obtained with micropuncture set. A 5 amharic JL4 catheter in over wire. Multiple views taken of left coronary artery. Catheter removed over the standard wire. A 5 amharic JR4 catheter in over wire. Catheter removed over the standard wire. A 5 amharic MPA1 catheter in over wire. SVG's to RCA visualized and patent. Catheter out. 6 amharic MPA 1 guide catheter was inserted over the wire. Runthrough guidewire was advanced through the guide catheter to lesion in the PDA. AP Pads placed. Inflation number : 1 A AB MINI TREK 2.00X12 RX BALLOON was prepped and advanced across the Aorta Right -> R PDA , then inflated to 8 MIRELLA for 0:26 seconds. nitro turned up to 15mcg/min. Inflation number: 2 The AB MINI TREK 2.00X12 RX BALLOON was reinflated across the Aorta Right -> R PDA, to 10 MIRELLA for 0:24 seconds. Inflation number: 3 The AB MINI TREK 2.00X12 RX BALLOON was reinflated across the Aorta Right -> R PDA, to 12 MIRELLA for 0:17 seconds. Balloon out. Results checked. Inflation Number : 4 A DANIELLA Lockwood RYLEE 2.25X12 DIAN -Lot Number# _[id number] EXP: 12/26/2023 was prepped and advanced across the Aorta Right -> R PDA. The stent was deployed at 12 MIRELLA for 0:20 seconds. Stent balloon out over wire. Results checked. Wire out. Results checked. Guide catheter out. A Suture was successful obtaining hemostatsis at the Left Femoral artery insertion site. Sheath(s) sutured into position with 2-0 silk and sterile 4x4's and Op-site applied over the site. No oozing or signs and symptoms of hematoma noted. Arterial sheath flushed and connected to tranducer and pressure bag with heparinized saline. Post Procedure: Pulses reassessed and unchanged. PERRLA. Strong, equal hand physician gynecologist bilaterally. No VTE prophylaxis required. Medication's Wasted: Lidocaine 1% = 10 mL. Total IV fluids: 100 mL. Contrast type used: Omnipaque 300 mg/mL, 150 mL bottle. Estimated blood loss: 5mL-10mL. Responsiveness - Normal response to verbal stimuli; alert and oriented, PERRLA. Airway - Unaffected, no intervention required; spontaneous ventilation. Circulation: W/N/L, pulses unchanged. Nausea/Vomiting: No. Complications: None. Procedure completed. Vital chart was stopped. nitro turned up to 20mcg/min. Procedure started. Patient transferred by bed to ICU. Access Site Site: Left Femoral artery Sheath Size: 6 Fr Hemostasis Method: Suture Hemostasis Success: Successful Procedure Medications Start: 11:21 AM Stop: 11: AM Medication: Versed Amount: 1 mg Route: I.V. Start: 11:21 AM Stop: 11: AM Medication: Fentanyl Amount: 50 mcg Route: I.V. Start: 11: AM Stop: AM Medication: Versed Amount: 1 mg Route: I.V. Start: : AM Stop: AM Medication: Fentanyl Amount: 50 mcg Route: I.V. Start: : AM Stop: AM Medication: Hydralazine Amount: 10 mg Route: I.V. Start: : AM Stop: AM Medication: Versed Amount: 1 mg Route: I.V. Start: : AM Stop: AM Medication: Fentanyl Amount: 50 mcg Route: I.V. Start: :51 AM Stop: : AM Medication: Hydralazine Amount: 10 mg Route: I.V. Start: 12:01 PM Stop: 12:01 PM Medication: Versed Amount: 1 mg Route: I.V. Start: 12:01 PM Stop: 12:01 PM Medication: Fentanyl Amount: 50 mcg Route: I.V. Start: 12:07 PM Stop: 12:07 PM Medication: Nitrogylcerin Amount: 10 mcg/min Route: I.V. drip Start: 12:13 PM Stop: 12:13 PM Medication: Nitrogylcerin Amount: 200 mcg Route: I.C. I, the attending physician, have reviewed and verified all procedure medications. Yes, all medications given per verbal order History/Risk Factors Hypertension: Yes Dyslipidemia: Yes Peripheral Arterial Disease (PAD): No Myocardial Infarction (GA): No Obesity: No Renal Disease: No Tobacco Use: Current/Recent(w/in 1 year) Prior Interventions PCI: No CABG: Yes Valve Surgery: No Report Signatures Finalized by Francis Israel MD on 08/07/2021 12:44 PM
[2021-07-31] MEDS: diphenhydrAMINE 50 mg Capsule PO (11:01)
[2021-07-31] MEDS: sodium chloride 0.9% 1,000 ML 75 ML IV (11:02)
--- NOTE | 2021-07-31 11:08 | P.PN_ITS ---
Subjective Subjective: Interval history: Patient was seen and examined this morning, cardiology consult was obtained, plan was to take the patient to Agricultural Equipment Operator for possible PCI, patient successfully underwent PCI. SVG to PDA demonstrated severe stenosis at touchdown of PDA. successful revascularization with DIAN x1 at anastomosis of SVG to PDA. Post PCI patient continues to complain of chest pain, his blood pressure was also elevated, he was put on nitro drip and transferred to ICU. Medications: Reviewed: Yes Vitals/I&O/Wt Last Vital Signs Temp 97.9 F 07/31/21 03:17 Pulse 94 07/31/21 08:32 Resp 18 07/31/21 08:32 BP 167/78 07/31/21 03:17 Pulse Ox 93 07/31/21 08:32 07/30/21 07/31/21 07/31/21 22:59 06:59 14:59 Intake Total 1000 / 1000 480 / 1480 1000 / 1000 Output Total 200 / 200 475 / 675 Balance 800 / 800 5 / 805 1000 / 1000 Weight last 48 hrs Weight 72.575 kg Weight 73.028 kg Weight 73.028 kg Physical Exam Const: COMMON NORMALS: patient oriented x3 HENMT: COMMON NORMALS: normocephalic and atraumatic HEAD & SCALP: normocephalic and atraumatic Resp: COMMON NORMALS: clear to auscultation bilaterally AUSCULTATION: clear to auscultation bilaterally Cardio: COMMON NORMALS: regular rate, regular rhythm, S1 normal heart sound present, S2 normal heart sound present, No gallops present (Cardio), No murmurs present (Cardio), No rub (Cardio) and Peripheral pulses 2+ throughout RATE: regular rate RHYTHM: regular rhythm HEART SOUNDS: S1 normal heart sound present and S2 normal heart sound present PERIPHERAL PULSES: Peripheral pulses 2+ throughout GI: COMMON NORMALS: Normal to inspection, nondistended, normoactive bowel sounds present, Soft to palpation, non-tender, No hepatosplenomegaly present and no masses AUSCULTATION: Yes normoactive bowel sounds PALPATION: Yes Soft to palpation and Yes No hepatosplenomegaly present RECTAL EXAM: Yes deferred Extremity: COMMON NORMALS: no clubbing, cyanosis or edema and no pedal edema Neuro: COMMON NORMALS: patient oriented x3 Data : 07/31/21 03:40 07/31/21 03:40 A&P Assessment and plan (1) NSTEMI (non-ST elevated myocardial infarction): Status: Acute (2) Sick sinus syndrome: Status: Acute (3) Diabetes mellitus, type II: Status: Acute Qualifiers: Chronic kidney disease stage: stage 3 (moderate) Chronic kidney disease stage 3 subtype: stage 3a (GFR 45-59) Diabetes mellitus complication detail: with chronic kidney disease Diabetes mellitus complication status: with kidney complications Diabetes mellitus predatory animal exterminator insulin use: without predatory animal exterminator use Qualified Code(s): E11.22 - Type 2 diabetes mellitus with diabetic chronic kidney disease; N18.31 - Chronic kidney disease, stage 3a (4) CAD (coronary artery disease): Status: Acute Qualifiers: Associated angina: with other forms of angina Coronary Disease- Associated Artery/Lesion type: [place] artery [place] vs. transplanted heart: [place] heart Qualified Code(s): I25.118 - Atherosclerotic heart disease of [place] coronary artery with other forms of angina pectoris (5) Essential hypertension: Status: Chronic (6) Hypercholesterolemia: Status: Acute (7) CKD (chronic kidney disease) stage 3, GFR 30-59 ml/min: Status: Acute Additional A&P Information 66 year old male with past medical history of hypertension, diabetes ,dyslipidemia, smoking, coronary artery disease status post stent in June 2021 (Proximal Left Anterior Descending to Mid Left Anterior Descending) CABG , currently under evaluation for pacemaker placement for significant pauses up to 6 seconds. No significant pauses while awake. Currently awaiting sleep study to rule out any underlying obstructive sleep apnea contributing to significant pauses, pauses were discovered on recent event monitor which she wore for 21 day s. #NSTEMI: Likely type I: Recently 2D echo: Normal LV cavity size and function, LVEF 55% , grade 2 diastolic dysfunction, Moderately thickened mitral valve. Severe mitral annular calcification. No mitral valve stenosis. Trace mitral valve regurgitation. Continue telemetry monitoring Serial EKG Troponin trend with significant delta Repeat limited 2D echo Continue therapeutic Lovenox Continue aspirin Plavix statin, continue Imdur On nitro drip Status post PCI ( Coronary angiogram revealed patent recent LAD stent. Left circumflex artery is small in size and is diffusely diseased. SVG to OM and [place] RCA are known occluded. SVG to PDA demonstrated severe stenosis at touchdown of PDA) Cardiology consult appreciated #CKD stage III: Serum creatinine is:AT Baseline Continue to monitor BMP Avoid nephrotoxic's Intake output charting #Coronary artery disease status post stent #Sick sinus syndrome: Continue telemetry monitoring: So far no significant pauses noted. Patient is currently being worked up as an outpatient for possible pacemaker placement Currently awaiting sleep study. #HTN : Continue home medicine #Diabetes: Sliding scale insulin, carbohydrate consistent diet, fingerstick glucose #CODE STATUS: Full code DVT prophylaxis: On Lovenox Attestations Medical Necessity Statement*: Patient needs to be in hospital for management of NSTEMI Coding Level of Care Code Acute Hot Billet Shear Operator for [facility] Fwd Exam Detailed Diagnoses NSTEMI (non-ST elevated myocardial infarction) I21.4 Sick sinus syndrome I49.5 Diabetes mellitus, type II E11.22; N18.31 Chronic kidney disease stage: stage 3 (moderate) Chronic kidney disease stage 3 subtype: stage 3a (GFR 45-59) Diabetes mellitus complication detail: with chronic kidney disease Diabetes mellitus complication status: with kidney complications Diabetes mellitus longterm insulin use: without predatory animal exterminator use CAD (coronary artery disease) I25.118 Associated angina: with other forms of angina Coronary Disease-Associated Artery/Lesion type: [place] artery [place] vs. transplanted heart: [place] heart Essential hypertension I10 Hypercholesterolemia E78.00 CKD (chronic kidney disease) stage 3, GFR 30-59 ml/min N18.30
[2021-07-31] MEDS: nitroglycerin 0.4 mg sublingual Tablet SUBLINGUAL (11:11)
--- NOTE | 2021-07-31 11:15 | PC.NURSE ---
Patient left floor for C.
--- NOTE | 2021-07-31 11:16 | PC.CHAP ---
Pastoral Care Encounter/Spiritual Assessment Type of Contact [] Declined hip hop dancer visit [] Patient/Family/Request visit [] Outpatient visit [] Follow-up visit [] Physician referral [] Code/Alert [x] Routine visit [] Staff referral [] Actively dying [] Patient sleeping [] Family support [] [] Out of room [] Palliative care [] [x] Receiving care in room [] Pre-surgical visit [] Trauma [x] Long length of stay [] ICU visit [] Other: Relational/Emotional Strength [x] Patient feels connected with others/family/visitors/staff [] Distress [] Loneliness/isolation [] Abandonment Spirituality of Patient [] Person of Ileana [] Attends Cheondoism of their Ileana [] Believes in Prayer [] Reads Bible or Confucianism materials [] There are Spiritual issues to be addressed Commercial Banker Interventions [x] Prayer [x] Active listening [x] Non-anxious presence [x] Spiritual/emotional support [] Crisis/trauma care [x] Spiritual counseling [] Bereavement support [] Provided bereavement packet [] Provided Bible/devotional materials [] Provided toy/stuffed animal, coloring book to patient or family member [] Provided Communion [] Anointing/Nicholson [] Salvation [x] Completed spiritual assessment [] Other: Impact on Illness or Injury [] Angry [] Fearful [x] Anxious [] Often cries [] Exhaustion [x] Unable to work [] Unable to attend denominational [] Unable to walk/stand [] Unable to read [] Unable to drive [] Unable to eat/drink [] Unable to sleep [] Unable to be with family [] Patient intubated [] Other: Summary chest pain waiting on doctors report has a possitive attitude and wants to go home soon he dealing with his health Time spent with patient 10 mins
--- NOTE | 2021-07-31 11:16 | W.PM.OPSUD ---
Surgery/Procedure H&P Update DATE OF PROCEDURE: July 31, 2021 DATE H&P PERFORMED: 07/31/21 H&P UPDATE INFORMATION: I have reviewed H&P completed within last 30 days, I have examined patient prior to procedure and No changes to prior documentation PREOP DIAGNOSIS: NSTEMI PRIMARY INDICATION FOR PROCEDURE: NSTEMI PLANNED PROCEDURE: Left heart cath with possible percutaneous coronary intervention PHYSICAL EXAM: alert, oriented x 3, clear to auscultation bilaterally and regular rate & rhythm AIRWAY EVAL/ANESTHESIA PLAN: normal airway, ASA III, Monitored Anesthesia, Local Anesthesia, Risks, benefits & alternatives of sedation and/or procedure discussed and Patient agrees to continue as planned
[2021-07-31] MEDS: morphine 4 mg/mL SDV 1 mL IVP ×2 (13:14→13:17)
--- NOTE | 2021-07-31 13:30 | ECG_ITS ---
[facility] Test Date: 2021-07-31 Pat Name: Luis Alfredo Thompson Department: Room: ICU12 Gender: Male Road Contractor: : 1955 Requested By: Francis Israel Order Number: [id number] Jack MD: Francis Israel M.D. Measurements Intervals Tracy Rate: 104 P: 76 LA: 149 QRS: 29 QRSD: 137 T: 88 QT: 382 QTc: 504 Interpretive Statements SINUS TACHYCARDIA INTRAVENTRICULAR CONDUCTION DELAY [130+ ms QRS DURATION] SEPTAL MYOCARDIAL INFARCTION , PROBABLY OLD [40+ ms Q WAVE IN V1/V2] Compared to ECG 07/31/2021 07:27:22 Intraventricular conduction delay now present Sinus rhythm no longer present Myocardial infarct finding still present Electronically Signed On 07-31-2021 20:40:34 FOIL CUTTER by Francis Israel M.D. [id number]
--- NOTE | 2021-07-31 13:36 | P.MISC_ITS ---
Miscellaneous Note Purpose of Documentation: Post procedure note Note: Patient started having chest pain at the start of the procedure. Coronary angiogram revealed patent recent LAD stent. Left circumflex artery is small in size and is diffusely diseased. SVG to OM and [place] RCA are known occluded. SVG to PDA demonstrated severe stenosis at touchdown of PDA. Patient underwent successful revascularization with DIAN x1 at anastomosis of SVG to PDA. His chest pain however continued. Blood pressure was found to be very high and he was put on nitro drip. We will transfer him to ICU. Continue nitro drip. No areas requiring revascularization at this time. Repeat EKG in 30 minutes. Continue IV hydration and monitor renal function because of CKD and risk of contrast-induced nephropathy.
[2021-07-31] MEDS: nitroglycerin drip 50 MG/250 ML PREMIX 15 MG IV (14:01)
[2021-07-31 16:37] LABS: Partial Thromboplastin Time 47.8 SECONDS (23.9-36.7)
[2021-07-31 17:36] LABS: Glucose Point of Care 200 mg/dL (70-110)
[2021-07-31] MEDS: fentaNYL 50 mcg/mL INJ 2mL IVP (17:42)
[2021-07-31] MEDS: insulin lispro 100 unit/1 mL SUBCUT ×2 (18:35→21:04)
[2021-07-31] MEDS: ranolazine (12HR) 500 mg Tablet PO (18:35)
[2021-07-31] MEDS: isosorbide mononitrate ER 60 mg Tablet PO (18:35)
[2021-07-31] MEDS: ondansetron 2 mg/ML SDV 2 mL 4 MG IVP (18:51)
[2021-07-31 20:28] LABS: Glucose Point of Care 186 mg/dL (70-110)
[2021-07-31] MEDS: nitroglycerin drip 50 MG/250 ML PREMIX 40.5 MG IV (21:08)
[2021-07-31] MEDS: sodium chloride 0.9% 1,000 ML 100 ML IV (21:11)
[2021-07-31] MEDS: magnesium hydroxide 30 mL UDC PO (22:55)
[2021-08-01] VITALS (68 sets, daily range): BP systolic 119–152; BP diastolic 49–75; PULSE 68–111; RESP 14–26; TEMP 36.7–37.2; O2SAT 87–98
[2021-08-01] MEDS: nitroglycerin drip 50 MG/250 ML PREMIX 45 MG IV ×2 (01:56→02:12)
[2021-08-01] MEDS: simethicone 80 mg Chew PO (03:06)
[2021-08-01 04:03] LABS: Basophils % 0.2 %; Eosinophils % 0.1 %; Hematocrit 33.5 % (42.0-52.0); Hemoglobin 10.4 g/dL (11.7-16.6); Lymphocytes # 0.9 10^3/uL (0.8-4.8); Lymphocytes % 6.4 %; Mean Corpuscular Hemoglobin 29.8 pg (28.0-34.0); Mean Platelet Volume 10.4 fL (7.4-10.4); Monocytes # 1.1 10^3/uL (0.2-0.9); Monocytes % 7.8 %; Neutrophils # 12.42 10^3/uL (1.8-7.7); Neutrophils % 85.1 %; Nucleated Red Blood Cells % 0 %; Platelet Count 356 10^3/cmm (130-400); Red Blood Count 3.49 10^6/uL (4.1-5.3); White Blood Count 14.6 10^3/uL (4.0-10.0)
[2021-08-01 04:14] LABS: Alanine Aminotransferase 20 U/L (0-41); Albumin Level 2.7 g/dL (3.5-5.2); Alkaline Phosphatase 73 IU/L (40-130); Anion Gap 18.5 (5-19); Aspartate Amino Transferase 80 U/L (0-40); Blood Urea Nitrogen 20 mg/dL (8-23); Calcium 7.3 mg/dL (8.5-10.5); Carbon Dioxide 20 mmol/L (22-29); Chloride 107 mmol/L (98-107); Globulin 2.4 g/dL (1.3-4.6); Glomerular Filtration Rate 35.5 mL/min (90-130); Glucose 205 mg/dL (65-115); Osmolality Calculated 301 mOsm/kg (285-295); Potassium 4.5 mmol/L (3.5-5.1); Sodium 141 mmol/L (136-145); Total Bilirubin 0.2 mg/dL (0.15-1.2); Total Protein 5.1 g/dL (6.6-8.7)
[2021-08-01] MEDS: clopidogrel 75 mg Tablet PO (05:44)
[2021-08-01] MEDS: aspirin 81 mg EC Tablet PO (05:44)
--- NOTE | 2021-08-01 05:58 | PC.NURSE ---
Shift Note Frequent safety and comfort rounds continue. Orders and/or nursing care completed as indicated. Patient monitored for response to intervention and treatment(s). Education provided includes medications with side effects, S/S to report, fall precautions, post op care. Patient and/or medical office representative verbalized understanding of education. Spoke with Dr. Sims at shift change, see new orders. Per shift change report 0.9% NS turned off at 01:00. Lines patient, GTT's titrate per protocol. Patient has some heartburn and gas, prn medication given and symptoms improved as well as a decrease in chest pain. Will continue to monitor.
[2021-08-01 07:54] LABS: Glucose Point of Care 262 mg/dL (70-110)
[2021-08-01] MEDS: insulin lispro 100 unit/1 mL SUBCUT ×3 (07:55→20:06)
[2021-08-01] MEDS: ondansetron 2 mg/ML SDV 2 mL 4 MG IVP (08:02)
--- NOTE | 2021-08-01 08:16 | PC.NURSE ---
groin check done no bleeding or edema at site up to side of bed for am breakfast became nauseated and zofran given has no c/o chest pain and nitro weaned at this time
[2021-08-01] MEDS: NIFEdipine ER (24 hr) 30 mg Tablet 90 MG PO (08:43)
[2021-08-01] MEDS: prazosin 1 mg Capsule PO ×2 (08:43→17:39)
[2021-08-01] MEDS: isosorbide mononitrate ER 60 mg Tablet PO ×2 (08:44→17:39)
[2021-08-01] MEDS: ranolazine (12HR) 500 mg Tablet PO ×2 (08:44→17:39)
[2021-08-01] MEDS: hyDRALAzine 50 mg Tablet 100 MG PO ×3 (09:12→20:06)
--- NOTE | 2021-08-01 09:16 | PM.PN ---
Subjective Subjective: Interval history: s/p PDA stent distal to SVG to PDA graft anastomosis. He was in ICU post procedure for chest pain. Overnight his NTG gtt has been decreased. Medications: Reviewed: Yes Vitals/I&O/Wt Last Vital Signs Temp 98.9 F 08/01/21 08:00 Pulse 90 08/01/21 08:38 Resp 16 08/01/21 08:38 BP 143/75 08/01/21 08:00 Pulse Ox 95 08/01/21 08:38 07/31/21 08/01/21 08/01/21 22:59 06:59 14:59 Intake Total 1153.675 / 2341.175 953.367 / 3294.542 139.40 / 139.40 Output Total 400 / 400 100 / 500 Balance 753.675 / 1941.175 853.367 / 2794.542 139.40 / 139.40 Weight last 48 hrs Weight 169 lb 11.2 oz Weight 160 lb Weight 161 lb Weight 161 lb Physical Exam Narrative: EXAM NARRATIVE: GENERAL: Averagely built and averagely nourished in no acute distress HEENT: Pupils equal round reactive to light. No pallor or icterus. NECK: No JVD. No carotid bruit. CARDIOVASCULAR SYSTEM: S1-S2 regular. No murmur or gallops. RESPIRATORY SYSTEM: Chest clear to auscultation. No wheezes rhonchi or rubs heard. No use of accessory muscles. ABDOMEN: Soft, nontender and nondistended. Normal bowel sounds present. EXTREMITIES: No cyanosis or clubbing. 2+ feet and leg edema.Left femoral access site with no significant bruising or hematoma HATCHERY MAN: Patient is alert oriented ?3. No focal neurological deficits. Data : 08/01/21 03:24 08/01/21 03:24 A&P Assessment and plan (1) NSTEMI (non-ST elevated myocardial infarction): Typical chest pain with some ST depression in lateral leads. -s/p PDA stent -continue ASA, plavix, crestor. -started on Ranexa 500 mg BID, imdur 60 mg BID nifedipine added this morning. -Possible discharge tomorrow. Status: Acute (2) CAD (coronary artery disease): Status: Acute Qualifiers: Associated angina: with other forms of angina Coronary Disease-Associated Artery/Lesion type: [place] artery [place] vs. transplanted heart: [place] heart Qualified Code(s): I25.118 - Atherosclerotic heart disease of [place] coronary artery with other forms of angina pectoris (3) CKD (chronic kidney disease) stage 3, GFR 30-59 ml/min: Status: Acute (4) Essential hypertension: BP improved. Based on renal function may start on Lasix tomorrow. Status: Chronic (5) Hypercholesterolemia: Status: Acute (6) Diabetes mellitus, type II: Status: Acute Qualifiers: Chronic kidney disease stage: stage 3 (moderate) Chronic kidney disease stage 3 subtype: stage 3a (GFR 45-59) Diabetes mellitus complication detail: with chronic kidney disease Diabetes mellitus complication status: with kidney complications Diabetes mellitus halfway insulin use: without shellfish processing machine tender use Qualified Code(s): E11.22 - Type 2 diabetes mellitus with diabetic chronic kidney disease; N18.31 - Chronic kidney disease, stage 3a Additional A&P Information Recurrent pauses on monitor: not on AV júnior blockers H/O CABG x2 Thank you for allowing me to participate in patient's care. Please feel free to call with questions or concerns. Attestations Medical Necessity Statement*: Needs hospital stay for management of NSTEMI and med titration Time Spent in Patient Care: 16 - 35 minutes (>than 50% of time spent in counselling and/or direct pt care on unit). Coding Level of Care Code Acute Associate Dean Of Students for [facility] Fwd Diagnoses NSTEMI (non-ST elevated myocardial infarction) I21.4 CAD (coronary artery disease) I25.118 Associated angina: with other forms of angina Coronary Disease-Associated Artery/Lesion type: [place] artery [place] vs. transplanted heart: [place] heart CKD (chronic kidney disease) stage 3, GFR 30-59 ml/min N18.30 Essential hypertension I10 Hypercholesterolemia E78.00 Diabetes mellitus, type II E11.22; N18.31 Chronic kidney disease stage: stage 3 (moderate) Chronic kidney disease stage 3 subtype: stage 3a (GFR 45-59) Diabetes mellitus complication detail: with chronic kidney disease Diabetes mellitus complication status: with kidney complications Diabetes mellitus shellfish processing machine tender insulin use: without shellfish processing machine tender use
--- NOTE | 2021-08-01 11:05 | PM.PN ---
Subjective Subjective: Interval history: patient was seen and examined this morning denies any chest pain, shortness of breath. Blood pressure is still slightly elevated, nifedipine 90 has been added today. Medications: Reviewed: Yes Vitals/I&O/Wt Last Vital Signs Temp 98.9 F 08/01/21 08:00 Pulse 90 08/01/21 08:38 Resp 16 08/01/21 08:38 BP 143/75 08/01/21 08:00 Pulse Ox 95 08/01/21 08:38 07/31/21 08/01/21 08/01/21 22:59 06:59 14:59 Intake Total 1153.675 / 2341.175 953.367 / 3294.542 149.45 / 149.45 Output Total 400 / 400 100 / 500 Balance 753.675 / 1941.175 853.367 / 2794.542 149.45 / 149.45 Weight last 48 hrs Weight 76.975 kg Weight 72.575 kg Weight 73.028 kg Weight 73.028 kg Physical Exam Const: COMMON NORMALS: patient oriented x3 HENMT: COMMON NORMALS: normocephalic and atraumatic HEAD & SCALP: normocephalic and atraumatic Resp: OTHER: Bilateral wheezing present in both the lung jewell Cardio: COMMON NORMALS: regular rate, regular rhythm, S1 normal heart sound present, S2 normal heart sound present, No gallops present (Cardio), No murmurs present (Cardio), No rub (Cardio) and Peripheral pulses 2+ throughout RATE: regular rate RHYTHM: regular rhythm HEART SOUNDS: S1 normal heart sound present and S2 normal heart sound present PERIPHERAL PULSES: Peripheral pulses 2+ throughout GI: COMMON NORMALS: Normal to inspection, nondistended, normoactive bowel sounds present, Soft to palpation, non-tender, No hepatosplenomegaly present and no masses AUSCULTATION: Yes normoactive bowel sounds PALPATION: Yes Soft to palpation and Yes No hepatosplenomegaly present RECTAL EXAM: Yes deferred Extremity: COMMON NORMALS: no clubbing, cyanosis or edema and no pedal edema Neuro: COMMON NORMALS: patient oriented x3 Data : 08/01/21 03:24 08/01/21 03:24 A&P Assessment and plan (1) NSTEMI (non-ST elevated myocardial infarction): Status: Acute (2) Sick sinus syndrome: Status: Acute (3) Diabetes mellitus, type II: Status: Acute Qualifiers: Chronic kidney disease stage: stage 3 (moderate) Chronic kidney disease stage 3 subtype: stage 3a (GFR 45-59) Diabetes mellitus complication detail: with chronic kidney disease Diabetes mellitus complication status: with kidney complications Diabetes mellitus buttermaker insulin use: without long-term use Qualified Code(s): E11.22 - Type 2 diabetes mellitus with diabetic chronic kidney disease; N18.31 - Chronic kidney disease, stage 3a (4) CAD (coronary artery disease): Status: Acute Qualifiers: Associated angina: with other forms of angina Coronary Disease-Associated Artery/Lesion type: [place] artery [place] vs. transplanted heart: [place] heart Qualified Code(s): I25.118 - Atherosclerotic heart disease of [place] coronary artery with other forms of angina pectoris (5) Essential hypertension: Status: Chronic (6) Hypercholesterolemia: Status: Acute (7) CKD (chronic kidney disease) stage 3, GFR 30-59 ml/min: Status: Acute Additional A&P Information 66 year old male with past medical history of hypertension, diabetes ,dyslipidemia, smoking, coronary artery disease status post stent in June 2021 (Proximal Left Anterior Descending to Mid Left Anterior Descending) CABG , currently under evaluation for pacemaker placement for significant pauses up to 6 seconds. No significant pauses while awake. Currently awaiting sleep study to rule out any underlying obstructive sleep apnea contributing to significant pauses, pauses were discovered on recent event monitor which she wore for 21 days. #NSTEMI: type I: Recently 2D echo: Normal LV cavity size and function, LVEF 55% , grade 2 diastolic dysfunction, Moderately thickened mitral valve. Severe mitral annular calcification. No mitral valve stenosis. Trace mitral valve regurgitation. Continue telemetry monitoring Serial EKG Troponin trend with significant delta Repeat limited 2D echo Continue therapeutic Lovenox Continue aspirin Plavix statin, continue Imdur, Ranexa 500 p.o. twice daily was added during this hospital stay. On nitro drip Status post PCI ( Coronary angiogram revealed patent recent LAD stent. Left circumflex artery is small in size and is diffusely diseased. SVG to OM and [place] RCA are known occluded. SVG to PDA demonstrated severe stenosis at touchdown of PDA) Cardiology consult appreciated #CKD stage III: Serum creatinine is:AT Baseline Continue to monitor BMP Avoid nephrotoxic's Intake output charting #Coronary artery disease status post stent #Sick sinus syndrome: Continue telemetry monitoring: So far no significant pauses noted. Patient is currently being worked up as an outpatient for possible pacemaker placement Currently awaiting sleep study. #HTN : On hydralazine 100 3 times daily, Minipress 1 mg p.o. twice daily, nifedipine 90 mg p.o. twice daily has been added, Imdur 60 p.o. twice daily. #Diabetes: Sliding scale insulin, carbohydrate consistent diet, fingerstick glucose #CODE STATUS: Full code DVT prophylaxis: On Lovenox Attestations Medical Necessity Statement*: Patient needs to be in hospital for management of NSTEMI. And further medical optimization. Coding Level of Care Code Acute Basket Machine Operator for g Fwd Exam Detailed Diagnoses NSTEMI (non-ST elevated myocardial infarction) I21.4 Sick sinus syndrome I49.5 Diabetes mellitus, type II E11.22; N18.31 Chronic kidney disease stage: stage 3 (moderate) Chronic kidney disease stage 3 subtype: stage 3a (GFR 45-59) Diabetes mellitus complication detail: with chronic kidney disease Diabetes mellitus complication status: with kidney complications Diabetes mellitus buttermaker insulin use: without buttermaker use CAD (coronary artery disease) I25.118 Associated angina: with other forms of angina Coronary Disease-Associated Artery/Lesion type: [place] artery [place] vs. transplanted heart: [place] heart Essential hypertension I10 Hypercholesterolemia E78.00 CKD (chronic kidney disease) stage 3, GFR 30-59 ml/min N18.30
[2021-08-01 11:25] LABS: Glucose Point of Care 97 mg/dL (70-110)
[2021-08-01] MEDS: atorvastatin 40 mg Tablet 20 MG PO (12:43)
[2021-08-01] MEDS: pantoprazole DR 40 mg Tablet PO (12:44)
--- NOTE | 2021-08-01 12:55 | PC.NURSE ---
up in chair at this time wean off nitro. had some emesis after attempt lunch
[2021-08-01] MEDS: ipratropium-albuterol 3 mL Neb INHALATION ×2 (14:22→21:53)
[2021-08-01 16:48] LABS: Glucose Point of Care 156 mg/dL (70-110)
--- NOTE | 2021-08-01 17:53 | NUR.SHIFT ---
Shift Note Frequent safety and comfort rounds continue. Orders and/or nursing care completed as indicated. Patient monitored for response to intervention and treatment(s). Education provided includes[]stemi and blood sugar . Patient and/or branch customer service representative [ResponseToTeaching]. Will continue to monitor. at this time family in room
[2021-08-02] VITALS (24 sets, daily range): BP systolic 125–154; BP diastolic 53–73; PULSE 87–702; RESP 16–31; TEMP 36.6–37; O2SAT 88–95; BMI 29.1
[2021-08-02 04:13] LABS: Basophils % 0.2 %; Eosinophils # 0.1 10^3/uL (0.0-0.8); Eosinophils % 1.1 %; Hematocrit 31.5 % (42.0-52.0); Hemoglobin 9.8 g/dL (11.7-16.6); Lymphocytes # 1.3 10^3/uL (0.8-4.8); Lymphocytes % 10.3 %; Mean Corpuscular HGB Conc 31.1 g/dL (30.0-36.0); Mean Corpuscular Hemoglobin 29.8 pg (28.0-34.0); Mean Corpuscular Volume 95.7 fl (80-94); Mean Platelet Volume 10.2 fL (7.4-10.4); Monocytes % 8.1 %; Neutrophils # 9.78 10^3/uL (1.8-7.7); Neutrophils % 79.8 %; Nucleated Red Blood Cells % 0 %; Platelet Count 289 10^3/cmm (130-400); Red Blood Count 3.29 10^6/uL (4.1-5.3); Red Cell Distribution Width 13.9 % (12.1-15.1); White Blood Count 12.3 10^3/uL (4.0-10.0)
[2021-08-02 04:33] LABS: Alanine Aminotransferase 17 U/L (0-41); Albumin Level 2.5 g/dL (3.5-5.2); Alkaline Phosphatase 74 IU/L (40-130); Anion Gap 14.8 (5-19); Aspartate Amino Transferase 37 U/L (0-40); Blood Urea Nitrogen 26 mg/dL (8-23); Calcium 7.2 mg/dL (8.5-10.5); Carbon Dioxide 20 mmol/L (22-29); Chloride 105 mmol/L (98-107); Globulin 2.5 g/dL (1.3-4.6); Glomerular Filtration Rate 25.9 mL/min (90-130); Glucose 91 mg/dL (65-115); Osmolality Calculated 284 mOsm/kg (285-295); Potassium 4.8 mmol/L (3.5-5.1); Sodium 135 mmol/L (136-145); Total Bilirubin 0.2 mg/dL (0.15-1.2)
[2021-08-02] MEDS: clopidogrel 75 mg Tablet PO (05:04)
[2021-08-02] MEDS: aspirin 81 mg EC Tablet PO (05:04)
[2021-08-02 07:50] LABS: Glucose Point of Care 142 mg/dL (70-110)
[2021-08-02] MEDS: ipratropium-albuterol 3 mL Neb INHALATION ×3 (08:13→21:15)
[2021-08-02] MEDS: prazosin 1 mg Capsule PO ×2 (08:46→17:24)
[2021-08-02] MEDS: NIFEdipine ER (24 hr) 30 mg Tablet 90 MG PO (08:46)
[2021-08-02] MEDS: isosorbide mononitrate ER 60 mg Tablet PO ×2 (08:47→17:24)
[2021-08-02] MEDS: ranolazine (12HR) 500 mg Tablet PO ×2 (08:47→17:24)
[2021-08-02] MEDS: hyDRALAzine 50 mg Tablet 100 MG PO ×3 (08:47→19:34)
--- NOTE | 2021-08-02 09:06 | PC.SOCIAL ---
IM follow up explained and copy provided. Pt verbalized understanding.
[2021-08-02 11:12] LABS: Glucose Point of Care 209 mg/dL (70-110)
[2021-08-02] MEDS: insulin lispro 100 unit/1 mL SUBCUT ×3 (11:59→20:29)
[2021-08-02] MEDS: atorvastatin 40 mg Tablet 20 MG PO (12:00)
[2021-08-02] MEDS: pantoprazole DR 40 mg Tablet PO (12:01)
--- NOTE | 2021-08-02 15:35 | PC.NURSE ---
report faxed for transfer at this time ... to [facility] room 107
--- NOTE | 2021-08-02 16:26 | PC.NURSE ---
transfered to room 107
[2021-08-02 16:51] LABS: Glucose Point of Care 312 mg/dL (70-110)
[2021-08-02] MEDS: sodium chloride 0.9% 500 ML IV (17:23)
--- NOTE | 2021-08-02 17:30 | PM.PN ---
Subjective Subjective: Interval history: patient was seen and examined this morning denies any chest pain, shortness of breath, palpitation, blood pressure is better controlled as compared to yesterday, His other vitals and labs have been reviewed. Medications: Reviewed: Yes Vitals/I&O/Wt Last Vital Signs Temp 98 F 08/02/21 14:00 Pulse 89 08/02/21 14:01 Resp 28 H 08/02/21 14:00 BP 126/58 08/02/21 14:00 Pulse Ox 89 L 08/02/21 13:49 08/02/21 08/02/21 08/02/21 06:59 14:59 22:59 Intake Total 238 / 937.45 600 / 600 Output Total 100 / 700 300 / 300 Balance 138 / 237.45 300 / 300 Weight last 48 hrs Weight 76.975 kg Weight 76.975 kg Physical Exam Const: COMMON NORMALS: patient oriented x3 HENMT: COMMON NORMALS: normocephalic and atraumatic HEAD & SCALP: normocephalic and atraumatic Resp: COMMON NORMALS: clear to auscultation bilaterally AUSCULTATION: clear to auscultation bilaterally OTHER: Bilateral wheezing present in both the lung jewell Cardio: COMMON NORMALS: regular rate, regular rhythm, S1 normal heart sound present, S2 normal heart sound present, No gallops present (Cardio), No murmurs present (Cardio), No rub (Cardio) and Peripheral pulses 2+ throughout RATE: regular rate RHYTHM: regular rhythm HEART SOUNDS: S1 normal heart sound present and S2 normal heart sound present PERIPHERAL PULSES: Peripheral pulses 2+ throughout GI: COMMON NORMALS: Normal to inspection, nondistended, normoactive bowel sounds present, Soft to palpation, non-tender, No hepatosplenomegaly present and no masses AUSCULTATION: Yes normoactive bowel sounds PALPATION: Yes Soft to palpation and Yes No hepatosplenomegaly present RECTAL EXAM: Yes deferred Extremity: COMMON NORMALS: no clubbing, cyanosis or edema and no pedal edema Neuro: COMMON NORMALS: patient oriented x3 Data : 08/02/21 03:44 08/02/21 03:44 A&P Assessment and plan (1) NSTEMI (non-ST elevated myocardial infarction): Status: Acute (2) Sick sinus syndrome: Status: Acute (3) Diabetes mellitus, type II: Status: Acute Qualifiers: Diabetes mellitus ferry terminal supervisor insulin use: without ferry terminal supervisor use Diabetes mellitus complication status: with kidney complications Diabetes mellitus complication detail: with chronic kidney disease Chronic kidney disease stage: stage 3 (moderate) Chronic kidney disease stage 3 subtype: stage 3a (GFR 45-59) Qualified Code(s): E11.22 - Type 2 diabetes mellitus with diabetic chronic kidney disease; N18.31 - Chronic kidney disease, stage 3a (4) CAD (coronary artery disease): Status: Acute Qualifiers: Coronary Disease-Associated Artery/Lesion type: [place] artery [place] vs. transplanted heart: [place] heart Associated angina: with other forms of angina Qualified Code(s): I25.118 - Atherosclerotic heart disease of [place] coronary artery with other forms of angina pectoris (5) Essential hypertension: Status: Chronic (6) Hypercholesterolemia: Status: Acute (7) CKD (chronic kidney disease) stage 3, GFR 30-59 ml/min: Status: Acute Additional A&P Information 66 year old male with past medical history of hypertension, diabetes ,dyslipidemia, smoking, coronary artery disease status post stent in June 2021 (Proximal Left Anterior Descending to Mid Left Anterior Descending) CABG , currently under evaluation for pacemaker placement for significant pauses up to 6 seconds. No significant pauses while awake. Currently awaiting sleep study to rule out any underlying obstructive sleep apnea contributing to significant pauses, pauses were discovered on recent event monitor which she wore for 21 days. #NSTEMI: type I: Recently 2D echo: Normal LV cavity size and function, LVEF 55% , grade 2 diastolic dysfunction, Moderately thickened mitral valve. Severe mitral annular calcification. No mitral valve stenosis. Trace mitral valve regurgitation. Continue telemetry monitoring Serial EKG Troponin trend with significant delta Repeat limited 2D echo Continue therapeutic Lovenox Continue aspirin Plavix statin, continue Imdur, Ranexa 500 p.o. twice daily was added during this hospital stay. On nitro drip Status post PCI ( Coronary angiogram revealed patent recent LAD stent. Left circumflex artery is small in size and is diffusely diseased. SVG to OM and [place] RCA are known occluded. SVG to PDA demonstrated severe stenosis at touchdown of PDA) Cardiology consult appreciated #MARCELO ON CKD stage III: Likely secondary to contrast-induced nephropathy. serum creatinine: Has trended up to 2.5, baseline serum creatinine is around 1.7-1.8. Current plan is to give 500 cc normal saline bolus one-time dose. Continue to monitor BMP Avoid nephrotoxic's Intake output charting #Coronary artery disease status post stent #Sick sinus syndrome: Continue telemetry monitoring: So far no significant pauses noted. Patient is currently being worked up as an outpatient for possible pacemaker placement Currently awaiting sleep study. #HTN : On hydralazine 100 3 times daily, Minipress 1 mg p.o. twice daily daily, nifedipine 90 mg p.o. daily has been added, Imdur 60 p.o. twice daily. #Diabetes: Sliding scale insulin, carbohydrate consistent diet, fingerstick glucose #CODE STATUS: Full code DVT prophylaxis: On Lovenox Attestations Medical Necessity Statement*: Patient needs to be in hospital for above defined problems. Coding Level of Care Code Acute Tacking Stitch Remover for [facility] Fwd Diagnoses NSTEMI (non-ST elevated myocardial infarction) I21.4 Sick sinus syndrome I49.5 Diabetes mellitus, type II E11.22; N18.31 Diabetes mellitus ferry terminal supervisor insulin use: without fci use Diabetes mellitus complication status: with kidney complications Diabetes mellitus complication detail: with chronic kidney disease Chronic kidney disease stage: stage 3 (moderate) Chronic kidney disease stage 3 subtype: stage 3a (GFR 45-59) CAD (coronary artery disease) I25.118 Coronary Disease-Associated Artery/Lesion type: [place] artery [place] vs. transplanted heart: [place] heart Associated angina: with other forms of angina Essential hypertension I10 Hypercholesterolemia E78.00 CKD (chronic kidney disease) stage 3, GFR 30-59 ml/min N18.30
--- NOTE | 2021-08-02 17:31 | PM.PN ---
Subjective Subjective: Interval history: s/p PDA stent distal to SVG to PDA graft anastomosis. He was transferred out of ICU. No pain overnight and so far today Medications: Reviewed: Yes Vitals/I&O/Wt Last Vital Signs Temp 98 F 08/02/21 14:00 Pulse 89 08/02/21 14:01 Resp 28 H 08/02/21 14:00 BP 126/58 08/02/21 14:00 Pulse Ox 89 L 08/02/21 13:49 08/02/21 08/02/21 08/02/21 06:59 14:59 22:59 Intake Total 238 / 937.45 600 / 600 Output Total 100 / 700 300 / 300 Balance 138 / 237.45 300 / 300 Weight last 48 hrs Weight 169 lb 11.2 oz Weight 169 lb 11.2 oz Physical Exam Narrative: EXAM NARRATIVE: GENERAL: Averagely built and averagely nourished in no acute distress HEENT: Pupils equal round reactive to light. No pallor or icterus. NECK: No JVD. No carotid bruit. CARDIOVASCULAR SYSTEM: S1-S2 regular. No murmur or gallops. RESPIRATORY SYSTEM: Chest clear to auscultation. No wheezes rhonchi or rubs heard. No use of accessory muscles. ABDOMEN: Soft, nontender and nondistended. Normal bowel sounds present. EXTREMITIES: No cyanosis or clubbing. 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 No focal neurological deficits. Data : 08/02/21 03:44 08/02/21 03:44 A&P Assessment and plan (1) NSTEMI (non-ST elevated myocardial infarction): Typical chest pain with some ST depression in lateral leads. -s/p PDA stent -continue ASA, plavix, crestor. -Continue Ranexa 500 mg BID, imdur 60 mg BID and nifedipine . -Creatinine increased to 2.5 this morning. Follow-up on [facility] in morning. -Possible discharge tomorrow based on renal function. Status: Acute (2) CAD (coronary artery disease): Status: Acute Qualifiers: Coronary Disease-Associated Artery/Lesion type: [place] artery [place] vs. transplanted heart: [place] heart Associated angina: with other forms of angina Qualified Code(s): I25.118 - Atherosclerotic heart disease of [place] coronary artery with other forms of angina pectoris (3) CKD (chronic kidney disease) stage 3, GFR 30-59 ml/min: Status: Acute (4) Essential hypertension: BP improved. Based on renal function may start on Lasix tomorrow. Status: Chronic (5) Hypercholesterolemia: Status: Acute (6) Diabetes mellitus, type II: Status: Acute Qualifiers: Diabetes mellitus nursing home insulin use: without longwall machine operator helper use Diabetes mellitus complication status: with kidney complications Diabetes mellitus complication detail: with chronic kidney disease Chronic kidney disease stage: stage 3 (moderate) Chronic kidney disease stage 3 subtype: stage 3a (GFR 45-59) Qualified Code(s): E11.22 - Type 2 diabetes mellitus with diabetic chronic kidney disease; N18.31 - Chronic kidney disease, stage 3a Additional A&P Information Recurrent pauses on monitor: not on AV júnior blockers H/O CABG x2 Thank you for allowing me to participate in patient's care. Please feel free to call with questions or concerns. Attestations Medical Necessity Statement*: Needs hospital stay for management of NSTEMI, MARCELO on CKD and med titration Coding Level of Care Code Acute Clothing Sales Assistant for [facility] Fwd Diagnoses NSTEMI (non-ST elevated myocardial infarction) I21.4 CAD (coronary artery disease) I25.118 Coronary Disease-Associated Artery/Lesion type: [place] artery [place] vs. transplanted heart: [place] heart Associated angina: with other forms of angina CKD (chronic kidney disease) stage 3, GFR 30-59 ml/min N18.30 Essential hypertension I10 Hypercholesterolemia E78.00 Diabetes mellitus, type II E11.22; N18.31 Diabetes mellitus longwall machine operator helper insulin use: without longwall machine operator helper use Diabetes mellitus complication status: with kidney complications Diabetes mellitus complication detail: with chronic kidney disease Chronic kidney disease stage: stage 3 (moderate) Chronic kidney disease stage 3 subtype: stage 3a (GFR 45-59)
--- NOTE | 2021-08-02 18:55 | PC.NURSE ---
received from icu via w/c into room 107.report received.pt is alert and oriented x 4.sr on monitor.denies pain. oriented to room environment.
--- NOTE | 2021-08-02 18:57 | PC.NURSE ---
dr hylton in to see pt.ordered 500 cc ns bolus which was given over 1 hr.
--- NOTE | 2021-08-02 19:05 | PC.NURSE ---
Received report from RAUDEL Cartwright. Patient up to chair with spouse at bedside. Patient reports feeling well and is requesting something to help with sleep. Instructed patient on Restoril. Patient verbalized complete understanding.
[2021-08-02] MEDS: alum-mag-hydroxide-sime 30 mL UDC PO (19:35)
[2021-08-02 19:57] LABS: Glucose Point of Care 229 mg/dL (70-110)
[2021-08-02] MEDS: temazepam 15 mg Capsule PO (20:29)
[2021-08-03] VITALS (17 sets, daily range): BP systolic 119–137; BP diastolic 59–68; PULSE 87–95; RESP 16–30; TEMP 36.6–36.8; O2SAT 89–96
[2021-08-03] MEDS: ipratropium-albuterol 3 mL Neb INHALATION ×3 (02:42→20:48)
[2021-08-03] MEDS: clopidogrel 75 mg Tablet PO (05:11)
[2021-08-03] MEDS: aspirin 81 mg EC Tablet PO (05:11)
[2021-08-03 06:46] LABS: Glucose Point of Care 145 mg/dL (70-110)
[2021-08-03 08:24] LABS: Basophils % 0.2 %; Eosinophils # 0.1 10^3/uL (0.0-0.8); Hematocrit 32.7 % (42.0-52.0); Hemoglobin 10.2 g/dL (11.7-16.6); Lymphocytes % 7.7 %; Mean Corpuscular HGB Conc 31.2 g/dL (30.0-36.0); Mean Corpuscular Hemoglobin 29.6 pg (28.0-34.0); Mean Corpuscular Volume 94.8 fl (80-94); Mean Platelet Volume 10.3 fL (7.4-10.4); Monocytes # 0.9 10^3/uL (0.2-0.9); Neutrophils # 10.38 10^3/uL (1.8-7.7); Neutrophils % 83.7 %; Nucleated Red Blood Cells % 0 %; Platelet Count 298 10^3/cmm (130-400); Red Blood Count 3.45 10^6/uL (4.1-5.3); Red Cell Distribution Width 13.8 % (12.1-15.1); White Blood Count 12.4 10^3/uL (4.0-10.0)
[2021-08-03 08:44] LABS: Anion Gap 18.9 (5-19); Blood Urea Nitrogen 39 mg/dL (8-23); Calcium 7.5 mg/dL (8.5-10.5); Carbon Dioxide 19 mmol/L (22-29); Chloride 99 mmol/L (98-107); Glomerular Filtration Rate 17.6 mL/min (90-130); Glucose 139 mg/dL (65-115); Osmolality Calculated 286 mOsm/kg (285-295); Potassium 4.9 mmol/L (3.5-5.1); Sodium 132 mmol/L (136-145)
[2021-08-03] MEDS: NIFEdipine ER (24 hr) 30 mg Tablet 90 MG PO (09:59)
[2021-08-03] MEDS: prazosin 1 mg Capsule PO ×2 (09:59→18:58)
[2021-08-03] MEDS: hyDRALAzine 50 mg Tablet 100 MG PO ×3 (10:01→21:14)
[2021-08-03] MEDS: isosorbide mononitrate ER 60 mg Tablet PO ×2 (10:01→18:58)
[2021-08-03] MEDS: insulin lispro 100 unit/1 mL SUBCUT ×4 (10:02→21:17)
[2021-08-03] MEDS: ranolazine (12HR) 500 mg Tablet PO ×2 (10:04→18:58)
[2021-08-03] MEDS: sodium chloride 0.9% 1,000 ML 75 ML IV (10:06)
[2021-08-03 11:07] LABS: Glucose Point of Care 186 mg/dL (70-110)
[2021-08-03] MEDS: pantoprazole DR 40 mg Tablet PO (11:53)
[2021-08-03] MEDS: atorvastatin 40 mg Tablet 20 MG PO (11:53)
[2021-08-03] MEDS: FUROsemide 10 mg/mL SDV 10mL 80 MG IVP (15:00)
--- NOTE | 2021-08-03 15:53 | P.PN_ITS ---
Subjective Subjective: Interval history: patient was seen and examined this morning,deny any active complain, Unfortunately SCR has trended up 3.5 today,BUN has also risen to 39, patient continue to make good urine, denies any SOB , chest pain. Medications: Reviewed: Yes Vitals/I&O/Wt Last Vital Signs Temp 97.8 F 08/03/21 04:00 Pulse 95 08/03/21 12:00 Resp 25 H 08/03/21 12:00 BP 133/65 08/03/21 12:00 Pulse Ox 93 08/03/21 09:05 Weight last 48 hrs Weight 76.884 kg Weight 76.975 kg Physical Exam Const: COMMON NORMALS: patient oriented x3 HENMT: COMMON NORMALS: normocephalic and atraumatic HEAD & SCALP: normocephalic and atraumatic Resp: COMMON NORMALS: clear to auscultation bilaterally AUSCULTATION: clear to auscultation bilaterally OTHER: Minimal Bilateral wheezing present in both the lung jewell Cardio: COMMON NORMALS: regular rate, regular rhythm, S1 normal heart sound present, S2 normal heart sound present, No gallops present (Cardio), No murmurs present (Cardio), No rub (Cardio) and Peripheral pulses 2+ throughout RATE: regular rate RHYTHM: regular rhythm HEART SOUNDS: S1 normal heart sound present and S2 normal heart sound present PERIPHERAL PULSES: Peripheral pulses 2+ throughout GI: COMMON NORMALS: Normal to inspection, nondistended, normoactive bowel sounds present, Soft to palpation, non-tender, No hepatosplenomegaly present and no masses AUSCULTATION: Yes normoactive bowel sounds PALPATION: Yes Soft to palpation and Yes No hepatosplenomegaly present RECTAL EXAM: Yes deferred Extremity: COMMON NORMALS: no clubbing, cyanosis or edema and no pedal edema Neuro: COMMON NORMALS: patient oriented x3 Data : 08/03/21 07:54 08/03/21 07:54 A&P Assessment and plan (1) NSTEMI (non-ST elevated myocardial infarction): Status: Acute (2) Sick sinus syndrome: Status: Acute (3) Diabetes mellitus, type II: Status: Acute Qualifiers: Chronic kidney disease stage: stage 3 (moderate) Chronic kidney disease stage 3 subtype: stage 3a (GFR 45-59) Diabetes mellitus complication detail: with chronic kidney disease Diabetes mellitus complication status: with kidney complications Diabetes mellitus custodial insulin use: without long term care pharmacist use Qualified Code(s): E11.22 - Type 2 diabetes mellitus with diabetic chronic kidney disease; N18.31 - Chronic kidney disease, stage 3a (4) CAD (coronary artery disease): Status: Acute Qualifiers: Associated angina: with other forms of angina Coronary Disease- Associated Artery/Lesion type: [place] artery [place] vs. transplanted heart: [place] heart Qualified Code(s): I25.118 - Atherosclerotic heart disease of [place] coronary artery with other forms of angina pectoris (5) Essential hypertension: Status: Chronic (6) Hypercholesterolemia: Status: Acute (7) CKD (chronic kidney disease) stage 3, GFR 30-59 ml/min: Status: Acute Additional A&P Information 66 year old male with past medical history of hypertension, diabetes ,dyslipidemia, smoking, coronary artery disease status post stent in June 2021 (Proximal Left Anterior Descending to Mid Left Anterior Descending) CABG , currently under evaluation for pacemaker placement for significant pauses up to 6 seconds. No significant pauses while awake. Currently awaiting sleep study to rule out any underlying obstructive sleep apnea contributing to significant pauses, pauses were discovered on recent event monitor which she wore for 21 days. #NSTEMI: type I: Recently 2D echo: Normal LV cavity size and function, LVEF 55% , grade 2 diastolic dysfunction, Moderately thickened mitral valve. Severe mitral annular calcification. No mitral valve stenosis. Trace mitral valve regurgitation. Continue telemetry monitoring Serial EKG Troponin trend with significant delta Repeat limited 2D echo Continue therapeutic Lovenox Continue aspirin Plavix statin, continue Imdur, Ranexa 500 p.o. twice daily was added during this hospital stay. Was On nitro drip Status post PCI ( Coronary angiogram revealed patent recent LAD stent. Left circumflex artery is small in size and is diffusely diseased. SVG to OM and [place] RCA are known occluded. SVG to PDA demonstrated severe stenosis at touchdown of PDA) Cardiology consult appreciated #MARCELO ON CKD stage III: Likely secondary to contrast-induced nephropathy. serum creatinine: Has trended up to 3.5, baseline serum creatinine is around 1.7-1.8. Currently on ns @75 cc/hr.Has received NS 500 cc bolus yesterday. Continue to monitor BMP Avoid nephrotoxic's Intake output charting #Coronary artery disease status post stent #Sick sinus syndrome: Continue telemetry monitoring: So far no significant pauses noted. Patient is currently being worked up as an outpatient for possible pacemaker placement Currently awaiting sleep study. #HTN : On hydralazine 100 3 times daily, Minipress 1 mg p.o. twice daily daily, nifedipine 90 mg p.o. daily has been added, Imdur 60 p.o. twice daily. #Diabetes: Sliding scale insulin, carbohydrate consistent diet, fingerstick glucose #CODE STATUS: Full code DVT prophylaxis: On Lovenox Attestations Medical Necessity Statement*: Patient needs to be in the hospital for management of MARCELO 2/2 ELIZABETH. Coding Level of Care Code Acute Retail Support Associate for [facility] Fwd Exam Detailed Diagnoses NSTEMI (non-ST elevated myocardial infarction) I21.4 Sick sinus syndrome I49.5 Diabetes mellitus, type II E11.22; N18.31 Chronic kidney disease stage: stage 3 (moderate) Chronic kidney disease stage 3 subtype: stage 3a (GFR 45-59) Diabetes mellitus complication detail: with chronic kidney disease Diabetes mellitus complication status: with kidney complications Diabetes mellitus long term care pharmacist insulin use: without long term care pharmacist use CAD (coronary artery disease) I25.118 Associated angina: with other forms of angina Coronary Disease-Associated Artery/Lesion type: [place] artery [place] vs. transplanted heart: [place] heart Essential hypertension I10 Hypercholesterolemia E78.00 CKD (chronic kidney disease) stage 3, GFR 30-59 ml/min N18.30
[2021-08-03 16:20] LABS: Anion Gap 16.9 (5-19); Blood Urea Nitrogen 40 mg/dL (8-23); Calcium 7.4 mg/dL (8.5-10.5); Carbon Dioxide 19 mmol/L (22-29); Chloride 99 mmol/L (98-107); Glomerular Filtration Rate 19.5 mL/min (90-130); Glucose 217 mg/dL (65-115); Osmolality Calculated 286 mOsm/kg (285-295); Potassium 4.9 mmol/L (3.5-5.1); Sodium 130 mmol/L (136-145)
--- NOTE | 2021-08-03 17:00 | P.PN_ITS ---
Subjective Subjective: Interval history: s/p PDA stent distal to SVG to PDA graft anastomosis. No pain overnight and so far today. UO not well documented. Medications: Reviewed: Yes Vitals/I&O/Wt Last Vital Signs Temp 97.8 F 08/03/21 04:00 Pulse 95 08/03/21 12:00 Resp 25 H 08/03/21 12:00 BP 133/65 08/03/21 12:00 Pulse Ox 93 08/03/21 09:05 Weight last 48 hrs Weight 169 lb 8 oz Weight 169 lb 11.2 oz Physical Exam Narrative: EXAM NARRATIVE: GENERAL: Averagely built and averagely nourished in no acute distress HEENT: Pupils equal round reactive to light. No pallor or icterus. NECK: No JVD. No carotid bruit. CARDIOVASCULAR SYSTEM: S1-S2 regular. No murmur or gallops. RESPIRATORY SYSTEM: Chest clear to auscultation. No wheezes rhonchi or rubs heard. No use of accessory muscles. ABDOMEN: Soft, nontender and nondistended. Normal bowel sounds present. EXTREMITIES: No cyanosis or clubbing. 3+ feet and leg edema.Left femoral access site with no significant bruising or hematoma MACHINE SANDER: Patient is alert oriented ?3. No focal neurological deficits. Data : 08/03/21 07:54 08/03/21 15:53 A&P Assessment and plan (1) NSTEMI (non-ST elevated myocardial infarction): Typical chest pain with some ST depression in lateral leads. -s/p PDA stent -continue ASA, plavix, crestor. -Continue Ranexa 500 mg BID, imdur 60 mg BID and nifedipine . -Creatinine increased to 3.5 this morning. Follow-up on [facility] this evening. -Possible discharge tomorrow based on renal function. Status: Acute (2) CAD (coronary artery disease): Status: Acute Qualifiers: Coronary Disease-Associated Artery/Lesion type: [place] artery [place] vs. transplanted heart: [place] heart Associated angina: with other forms of angina Qualified Code(s): I25.118 - Atherosclerotic heart disease of [place] coronary artery with other forms of angina pectoris (3) CKD (chronic kidney disease) stage 3, GFR 30-59 ml/min: Status: Acute (4) Essential hypertension: BP improved. Based on renal function may start on Lasix tomorrow. Status: Chronic (5) Hypercholesterolemia: Status: Acute (6) Diabetes mellitus, type II: Status: Acute Qualifiers: Diabetes mellitus senior living insulin use: without long distance operator use Diabetes mellitus complication status: with kidney complications Diabetes mellitus complication detail: with chronic kidney disease Chronic kidney disease stage: stage 3 (moderate) Chronic kidney disease stage 3 subtype: stage 3a (GFR 45-59) Qualified Code(s): E11.22 - Type 2 diabetes mellitus with diabetic chronic kidney disease; N18.31 - Chronic kidney disease, stage 3a Additional A&P Information MARCELO on CKD stage 3b: monitor renal function closely Recurrent pauses on monitor: not on AV júnior blockers H/O CABG x2 Thank you for allowing me to participate in patient's care. Please feel free to call with questions or concerns. Attestations Medical Necessity Statement*: Needs hospital stay for management of NSTEMI, MARCELO on CKD and med titration Coding Level of Care Code Acute Products Mechanical Design Engineer for [facility] Fwd Diagnoses NSTEMI (non-ST elevated myocardial infarction) I21.4 CAD (coronary artery disease) I25.118 Coronary Disease-Associated Artery/Lesion type: [place] artery [place] vs. transplanted heart: [place] heart Associated angina: with other forms of angina CKD (chronic kidney disease) stage 3, GFR 30-59 ml/min N18.30 Essential hypertension I10 Hypercholesterolemia E78.00 Diabetes mellitus, type II E11.22; N18.31 Diabetes mellitus long distance operator insulin use: without senior living use Diabetes mellitus complication status: with kidney complications Diabetes mellitus complication detail: with chronic kidney disease Chronic kidney disease stage: stage 3 (moderate) Chronic kidney disease stage 3 subtype: stage 3a (GFR 45-59)
[2021-08-03 17:39] LABS: Glucose Point of Care 296 mg/dL (70-110)
[2021-08-03 20:53] LABS: Glucose Point of Care 257 mg/dL (70-110)
[2021-08-03] MEDS: calcium carbonate 500 mg Chew Tablet PO (21:14)
[2021-08-03] MEDS: ALPRAZolam 0.5 mg Tablet 0.25 MG PO (21:15)
[2021-08-04] VITALS (9 sets, daily range): BP systolic 121–139; BP diastolic 57–71; PULSE 81–89; RESP 18–26; TEMP 36.4–37.1; O2SAT 86–94
[2021-08-04 04:50] LABS: Basophils % 0.1 %; Eosinophils # 0.1 10^3/uL (0.0-0.8); Eosinophils % 1.4 %; Hematocrit 29.4 % (42.0-52.0); Hemoglobin 9.4 g/dL (11.7-16.6); Lymphocytes # 0.9 10^3/uL (0.8-4.8); Lymphocytes % 9.1 %; Mean Corpuscular Hemoglobin 29.7 pg (28.0-34.0); Mean Platelet Volume 10.5 fL (7.4-10.4); Monocytes # 0.7 10^3/uL (0.2-0.9); Monocytes % 7.2 %; Neutrophils # 8.46 10^3/uL (1.8-7.7); Neutrophils % 81.8 %; Nucleated Red Blood Cells % 0 %; Platelet Count 305 10^3/cmm (130-400); Red Blood Count 3.16 10^6/uL (4.1-5.3); Red Cell Distribution Width 13.7 % (12.1-15.1); White Blood Count 10.3 10^3/uL (4.0-10.0)
[2021-08-04 05:14] LABS: Anion Gap 19.8 (5-19); Blood Urea Nitrogen 41 mg/dL (8-23); Calcium 7.4 mg/dL (8.5-10.5); Carbon Dioxide 18 mmol/L (22-29); Chloride 100 mmol/L (98-107); Glomerular Filtration Rate 18.8 mL/min (90-130); Glucose 149 mg/dL (65-115); Osmolality Calculated 289 mOsm/kg (285-295); Potassium 4.8 mmol/L (3.5-5.1); Sodium 133 mmol/L (136-145)
[2021-08-04] MEDS: aspirin 81 mg EC Tablet PO (05:36)
[2021-08-04] MEDS: clopidogrel 75 mg Tablet PO (05:37)
[2021-08-04 06:26] LABS: Glucose Point of Care 171 mg/dL (70-110)
[2021-08-04] MEDS: ipratropium-albuterol 3 mL Neb INHALATION (08:01)
[2021-08-04] MEDS: isosorbide mononitrate ER 60 mg Tablet PO (08:52)
[2021-08-04] MEDS: NIFEdipine ER (24 hr) 30 mg Tablet 90 MG PO (08:52)
[2021-08-04] MEDS: hyDRALAzine 50 mg Tablet 100 MG PO ×2 (08:52→14:22)
[2021-08-04] MEDS: ranolazine (12HR) 500 mg Tablet PO (08:53)
[2021-08-04] MEDS: insulin lispro 100 unit/1 mL SUBCUT ×2 (08:53→14:22)
[2021-08-04] MEDS: prazosin 1 mg Capsule PO (08:53)
--- NOTE | 2021-08-04 09:56 | PC.SOCIAL ---
IMM Updated Updated pt on IMM. No questions voiced. Provided pt a copy. Initialed, dated, & timed copy in chart.
--- NOTE | 2021-08-04 11:32 | US_ITS ---
WS: [id number] ULTRASOUND RENAL TECHNIQUE: Ultrasound examination of both kidneys. CLINICAL INFORMATION: MARCELO COMPARISON: None. FINDINGS: Bilateral simple renal cysts largest in the mid left kidney measuring 2.6 x 3.0 x 2.9 cm an d smaller cyst right upper pole measuring 1.2 x 1.7 x 0.9 CM. RIGHT: Right kidney is normal in size and appearance. Echogenicity: Normal. Cortical thickness: 1.2 cm; Normal. Hydronephrosis: None. Perinephric fluid: None. Right kidney measures: 12.3 cm x 4.6 cm x 4.9 cm. LEFT: Left kidney is normal in size and appearance. Echogenicity: Normal. Cortical thickness: 1.5 cm; Normal. Hydronephrosis: None. Perinephric fluid: None. Left kidney measures: 10.2 cm x 5.9 cm x 4.1 cm. Normal visualized aorta. US/US renal BI* [id number] IMPRESSION: 1. Bilateral simple renal cysts largest in the mid left kidney measuring 2.6 x 3.0 x 2.9 cm and smaller cyst right upper pole measuring 1.2 x 1.7 x 0.9 CM. 2. No hydronephrosis in either kidney. 3. Normal bladder.
[2021-08-04 11:34] LABS: Glucose Point of Care 211 mg/dL (70-110)
[2021-08-04 12:12] LABS: Estmated Average Glucose 166; Hemoglobin A1C 7.4 % (4.0-6.0)
[2021-08-04 12:15] LABS: Ferritin 160 ng/mL (30-400); Iron 17 ug/dL (59-158); Total Iron Binding Capacity 241 mcg/dl; Unsaturated Iron Binding 224 ug/dL (112-347)
--- NOTE | 2021-08-04 13:14 | P.PN_ITS ---
Subjective Subjective: Interval history: s/p PDA stent distal to SVG to PDA graft anastomosis. No pain overnight. 1200 ml of UO. Medications: Reviewed: Yes Vitals/I&O/Wt Last Vital Signs Temp 98.7 F 08/04/21 11:55 Pulse 89 08/04/21 11:55 Resp 18 08/04/21 11:55 BP 139/71 08/04/21 11:55 Pulse Ox 87 L 08/04/21 12:35 08/03/21 08/04/21 08/04/21 22:59 06:59 14:59 Intake Total 450 / 450 150 / 600 1120 / 1120 Output Total 700 / 700 500 / 1200 Balance -250 / -250 -350 / -600 1120 / 1120 Weight last 48 hrs Weight 168 lb Weight 169 lb 8 oz Physical Exam Narrative: EXAM NARRATIVE: GENERAL: Averagely built and averagely nourished in no acute distress HEENT: Pupils equal round reactive to light. No pallor or icterus. NECK: No JVD. No carotid bruit. CARDIOVASCULAR SYSTEM: S1-S2 regular. No murmur or gallops. RESPIRATORY SYSTEM: Chest clear to auscultation, decrease breath sounds. No wheezes or rhonchi heard. No use of accessory muscles. ABDOMEN: Soft, nontender and nondistended. Normal bowel sounds present. EXTREMITIES: No cyanosis or clubbing. 2-3+ feet and leg edema.Left femoral access site with no significant bruising or hematoma SENIOR SOUS CHEF: Patient is alert oriented ?3. No focal neurological deficits. Data : 08/04/21 04:25 08/04/21 04:25 A&P Assessment and plan (1) NSTEMI (non-ST elevated myocardial infarction): Typical chest pain with some ST depression in lateral leads. -s/p PDA stent -continue ASA, plavix, crestor. -Continue Ranexa 500 mg BID, imdur 60 mg BID and nifedipine . -Creatinine increased to 3.3 this morning. -BMP, Mg, BNP in 2-3 days at [facility] -f/u in 2-3 weeks with me in [facility] Status: Acute (2) CAD (coronary artery disease): Status: Acute Qualifiers: Associated angina: with other forms of angina Coronary Disease- Associated Artery/Lesion type: [place] artery [place] vs. transplanted heart: n ative heart Qualified Code(s): I25.118 - Atherosclerotic heart disease of [place] coronary artery with other forms of angina pectoris (3) CKD (chronic kidney disease) stage 3, GFR 30-59 ml/min: Status: Acute (4) Essential hypertension: BP improved. Status: Chronic (5) Hypercholesterolemia: Status: Acute (6) Diabetes mellitus, type II: Status: Acute Qualifiers: Chronic kidney disease stage: stage 3 (moderate) Chronic kidney disease stage 3 subtype: stage 3a (GFR 45-59) Diabetes mellitus complication detail: with chronic kidney disease Diabetes mellitus complication status: with kidney complications Diabetes mellitus fpc insulin use: without middle or intermediate school principal use Qualified Code(s): E11.22 - Type 2 diabetes mellitus with diabetic chronic kidney disease; N18.31 - Chronic kidney disease, stage 3a Additional A&P Information MARCELO on CKD stage 3b: monitor renal function closely Recurrent pauses on monitor: not on AV júnior blockers H/O CABG x2 Thank you for allowing me to participate in patient's care. Please feel free to call with questions or concerns. Attestations Medical Necessity Statement*: As per primary team Time Spent in Patient Care: 16 - 35 minutes (>than 50% of time spent in counselling and/or direct pt care on unit) . Coding Level of Care Code Acute Molten Iron Pourer for Chg Fwd Diagnoses NSTEMI (non-ST elevated myocardial infarction) I21.4 CAD (coronary artery disease) I25.118 Associated angina: with other forms of angina Coronary Disease-Associated Artery/Lesion type: [place] artery [place] vs. transplanted heart: [place] heart CKD (chronic kidney disease) stage 3, GFR 30-59 ml/min N18.30 Essential hypertension I10 Hypercholesterolemia E78.00 Diabetes mellitus, type II E11.22; N18.31 Chronic kidney disease stage: stage 3 (moderate) Chronic kidney disease stage 3 subtype: stage 3a (GFR 45-59) Diabetes mellitus complication detail: with chronic kidney disease Diabetes mellitus complication status: with kidney complications Diabetes mellitus fpc insulin use: without middle or intermediate school principal use
[2021-08-04 13:40] LABS: NT Pro B Type Natriuretic Pept 19497 pg/mL (0-125)
[2021-08-04] MEDS: atorvastatin 40 mg Tablet 20 MG PO (14:21)
[2021-08-04] MEDS: pantoprazole DR 40 mg Tablet PO (14:22)
[2021-08-04 14:56] LABS: Folate Level 13.4 ng/mL (4.5-32.2)
--- NOTE | 2021-08-04 15:32 | PM.DCS ---
Discharge Providers Date of Admission: 07/30/21 19:56 Date of Discharge: August 04, 2021 Attending Provider at Admission: Antony Fink MD Attending Provider at Discharge: Magdy Mclaughlin Primary Care Provider: Joce Hodge MD Diagnoses at Discharge Discharge Diagnosis (1) NSTEMI (non-ST elevated myocardial infarction): Status: Acute (2) CAD (coronary artery disease): Status: Acute Qualifiers: Coronary Disease-Associated Artery/Lesion type: [place] artery [place] vs. transplanted heart: [place] heart Associated angina: with other forms of angina Qualified Code(s): I25.118 - Atherosclerotic heart disease of [place] coronary artery with other forms of angina pectoris (3) CKD (chronic kidney disease) stage 3, GFR 30-59 ml/min: Status: Acute (4) Essential hypertension: Status: Chronic (5) Hypercholesterolemia: Status: Acute (6) Diabetes mellitus, type II: Status: Acute Qualifiers: Diabetes mellitus termite renewal inspector insulin use: without chcf use Diabetes mellitus complication status: with kidney complications Diabetes mellitus complication detail: with chronic kidney disease Chronic kidney disease stage: stage 3 (moderate) Chronic kidney disease stage 3 subtype: stage 3a (GFR 45-59) Qualified Code(s): E11.22 - Type 2 diabetes mellitus with diabetic chronic kidney disease; N18.31 - Chronic kidney disease, stage 3a Reason for Visit Reason for Visit: CHEST PAIN/TOOK 3 NITRO FROM 3PM-4PM Hospital Course Hospital Course 66 year old male with past medical history of hypertension, diabetes ,dyslipidemia, smoking, coronary artery disease status post stent in June 2021 (Proximal Left Anterior Descending to Mid Left Anterior Descending) CABG , currently under evaluation for pacemaker placement for significant pauses up to 6 seconds. No significant pauses while awake. Currently awaiting sleep study to rule out any underlying obstructive sleep apnea contributing to significant pauses, pauses were discovered on recent event monitor which she wore for 21 days. #NSTEMI: type I: Recently 2D echo: Normal LV cavity size and function, LVEF 55% , grade 2 diastolic dysfunction, Moderately thickened mitral valve. Severe mitral annular calcification. No mitral valve stenosis. Trace mitral valve regurgitation. Continue aspirin Plavix statin, continue Imdur, Ranexa 500 p.o. twice daily was added during this hospital stay. Was On nitro drip Status post PCI ( Coronary angiogram revealed patent recent LAD stent. Left circumflex artery is small in size and is diffusely diseased. SVG to OM and [place] RCA are known occluded. SVG to PDA demonstrated severe stenosis at touchdown of PDA) Cardiology consult appreciated. The patient is cleared for discharge. He is very eager and adamant to go home. He and his do not want to stay in the hospital another day. #MARCELO ON CKD stage III: Likely secondary to contrast-induced nephropathy. serum creatinine: Has trended up to 3.5, baseline serum creatinine is around 1.7-1.8. Received IV fluids. Continue to monitor BMP. This was discussed with the patient at discharge. They verbalized understanding Avoid nephrotoxic's #Coronary artery disease status post stent #Sick sinus syndrome: Continue telemetry monitoring: So far no significant pauses noted. Patient is currently being worked up as an outpatient for possible pacemaker placement #HTN #Diabetes: Holding Metformin due to acute kidney injury. Decreasing dose of glimepiride to avoid hypoglycemic episodes due to kidney failure. Further adjustments might be necessary. Additional diagnosis. Acute hypoxia. New diagnosis. Fluid overload is suspected due to IV fluids given for the kidney failure. IV fluids are discontinued. He is given Lasix yesterday and today. No acute distress. He will go home with supplemental oxygen. He will follow-up with his watch case polisher after discharge. Sleep studies will need to be done after discharge. Referral is provided to see Dr. Mccarty. Home O2 arrangements are complete. Anemia. The patient has iron deficiency. Starting oral replacement of iron. Outpatient follow-up and additional testing might be necessary. Currently there is no evidence of acute bleeding. Tobacco abuse. Counseling is provided. Possible COPD. Physical Exam Narrative: EXAM NARRATIVE: Vital signs are reviewed. Stable. Awake alert oriented. No acute distress. Mood and affect are appropriate. Responses are adequate. Skin is warm and dry. Moist mucous membranes. Eyes PERRL, extraocular muscles are intact Neck supple. No JVD Lungs mild bibasilar crackles. No respiratory distress. No accessory muscle use. Heart S1, S2, regular Abdomen soft, nontender, bowel sounds are present Extremities mild pedal edema. No cyanosis no calf tenderness bilaterally Neuro examination is nonfocal. Discharge Data Data Completed and Pending: Completed Studies During Hospitalization Category Date Time Status XR chest 1V stephen ble [id number] Urgent Exams 07/30/21 16:23 Completed CV. echo limited [id number] Routine Ultrasound 07/31/21 08:30 Completed US renal BI* [id number] Stat Ultrasound 08/04/21 11:32 Completed Pending at discharge Category Date Time Status CLOTH PICKER request for service Routin e Exams 07/31/21 10:32 Taken Basic Metabolic P nesha AM LABS Lab 08/05/21 04:00 Ordered Basic Metabolic P nesha AM LABS Lab 08/06/21 04:00 Ordered Complete Blood Co unt w/Auto AM LABS Lab 08/05/21 04:00 Ordered Complete Blood Co unt w/Auto AM LABS Lab 08/05/21 04:00 Ordered Complete Blood Co unt w/Auto AM LABS Lab 08/06/21 04:00 Ordered Magnesium AM LABS Lab 08/05/21 04:00 Ordered NT Pro B Type Jena riuretic Pept Rout ine Lab 08/04/21 05:33 Results Renal Function Pa chirag AM LABS Lab 08/05/21 04:00 Ordered Vitamin B12 Stat Lab 08/04/21 05:33 Results Labs from last 24 hours 08/04/21 08/04/21 08/04/21 14:05 11:32 06:23 WBC RBC Hgb Hct MCV MCH MCHC RDW Plt Count MPV Neut % (Auto) Lymph % (Auto) Elliott % (Auto) Eos % (Auto) Baso % (Auto) Neut # (Auto) Lymph # (Auto) Elliott # (Auto) Eos # (Auto) Baso # (Auto) Nucleated RBC % (a uto) Nucleated RBCs # Sodium Potassium Chloride Carbon Dioxide Anion Gap BUN Creatinine GFR Calculation Glucose POC Glucose 211 H 171 H Estimat Average Gl ucose Hemoglobin A1c Calculated Osmolal ity Calcium Iron TIBC % Saturation Unsat Iron Binding Ferritin NT-Pro-B Natriuret Pep Vitamin B12 Folate 13.4 08/04/21 08/04/21 08/04/21 05:33 05:33 05:33 WBC RBC Hgb Hct MCV MCH MCHC RDW Plt Count MPV Neut % (Auto) Lymph % (Auto) Elliott % (Auto) Eos % (Auto) Baso % (Auto) Neut # (Auto) Lymph # (Auto) Elliott # (Auto) Eos # (Auto) Baso # (Auto) Nucleated RBC % (a uto) Nucleated RBCs # Sodium Potassium Chloride Carbon Dioxide Anion Gap BUN Creatinine GFR Calculation Glucose POC Glucose Estimat Average Gl ucose 166 Hemoglobin A1c 7.4 H Calculated Osmolal ity Calcium Iron 17 L TIBC 241 % Saturation 7.0 L Unsat Iron Binding 224 Ferritin 160 NT-Pro-B Natriuret Pep 78733 H Vitamin B12 Pending Folate 08/04/21 08/04/21 08/03/21 04:25 04:25 19:44 WBC 10.3 H RBC 3.16 L Hgb 9.4 L Hct 29.4 L MCV 93.0 MCH 29.7 MCHC 32.0 RDW 13.7 Plt Count 305 MPV 10.5 H Neut % (Auto) 81.8 Lymph % (Auto) 9.1 Elliott % (Auto) 7.2 Eos % (Auto) 1.4 Baso % (Auto) 0.1 Neut # (Auto) 8.46 H Lymph # (Auto) 0.9 Elliott # (Auto) 0.7 Eos # (Auto) 0.1 Baso # (Auto) 0.0 Nucleated RBC % (a uto) 0 Nucleated RBCs # 0.0 Sodium 133 L Potassium 4.8 Chloride 100 Carbon Dioxide 18 L Anion Gap 19.8 H BUN 41 H Creatinine 3.3 H GFR Calculation 18.8 L Glucose 149 H POC Glucose 257 H Estimat Average Gl ucose Hemoglobin A1c Calculated Osmolal ity 289 Calcium 7.4 L Iron TIBC % Saturation Unsat Iron Binding Ferritin NT-Pro-B Natriuret Pep Vitamin B12 Folate 08/03/21 08/03/21 17:21 15:53 WBC RBC Hgb Hct MCV MCH MCHC RDW Plt Count MPV Neut % (Auto) Lymph % (Auto) Elliott % (Auto) Eos % (Auto) Baso % (Auto) Neut # (Auto) Lymph # (Auto) Elliott # (Auto) Eos # (Auto) Baso # (Auto) Nucleated RBC % (a uto) Nucleated RBCs # Sodium 130 L Potassium 4.9 Chloride 99 Carbon Dioxide 19 L Anion Gap 16.9 BUN 40 H Creatinine 3.2 H GFR Calculation 19.5 L Glucose 217 H POC Glucose 296 H Estimat Average Gl ucose Hemoglobin A1c Calculated Osmolal ity 286 Calcium 7.4 L Iron TIBC % Saturation Unsat Iron Binding Ferritin NT-Pro-B Natriuret Pep Vitamin B12 Folate Vitals: Last Vital Signs Temp 98.7 F 08/04/21 11:55 Pulse 89 08/04/21 11:55 Resp 18 08/04/21 11:55 BP 139/71 08/04/21 11:55 Pulse Ox 87 L 08/04/21 12:35 Discharge Plan Discharge Patient Disposition: Home Condition: Stable Prescriptions: New ferrous sulfate 325 mg (65 mg iron) Tablet,Delayed Release (Dr/Ec) 325 mg PO BIDWM Qty: 60 RF: 0 ranolazine 500 mg Tablet Extended Release 12 Hr 500 mg PO BID Qty: 60 RF: 0 glimepiride 2 mg tablet 2 mg PO BID Qty: 60 RF: 0 Continued ICaps AREDS [id number] capsule 1 cap PO DAILY RF: 0 prazosin 1 mg capsule 1 mg PO BID Qty: 60 RF: 6 loratadine [Claritin] 10 mg tablet 10 mg PO DAILY RF: 0 Gas Relief (simethicone) 250 mg capsule 250 mg PO QID PRN (Reason: Abdominal Discomfort) RF: 0 nitroglycerin [Nitrostat] 0.4 mg tablet, sublingual 0.4 mg sublingual Q5M PRN (Reason: chest pain) Qty: 25 RF: 3 blood sugar diagnostic [HeadSense MedicalTouch Ultra Blue Test Strip] Strip See Rx Instructions .ROUTE .COMPLEX Qty: 100 RF: 9 clopidogrel 75 mg tablet 75 mg PO QAM RF: 0 isosorbide mononitrate 120 mg tablet extended release 24 hr 60 mg PO BID RF: 0 pantoprazole 40 mg tablet,delayed release (DR/EC) 40 mg PO DAILY@12 RF: 0 rosuvastatin 5 mg tablet 5 mg PO DAILY@12 RF: 0 albuterol sulfate [ProAir HFA] 90 mcg/actuation Hfa Aerosol Inhaler 2 puff INHALATION Q4H PRN (Reason: Shortness Of Breath) RF: 0 aspirin 81 mg Tablet,Delayed Release (Dr/Ec) 81 mg PO QAM RF: 0 ascorbic acid (vitamin C) [Vitamin C] 500 mg Tablet 500 mg PO QAM RF: 0 calcium carbonate 500 mg calcium (1,250 mg) Tablet,Chewable 500 mg PO PRN PRN (Reason: Heartburn) RF: 0 vitamin E 400 unit Capsule 400 unit PO QAM RF: 0 clonidine HCl 0.2 mg tablet 0.2 mg PO BID RF: 0 furosemide [Lasix] 20 mg tablet 20 mg PO DAILY PRN (Reason: edema) Qty: 30 RF: 0 hydralazine 50 mg tablet 100 mg PO TID Qty: 405 RF: 3 tizanidine 4 mg tablet 4 mg PO QAM PRN (Reason: rx bottle dated 11/20/2019 for 4mg bid prn-pt states he just takes 4mg qam) RF: 0 Held glimepiride 4 mg tablet 4 mg PO BID Qty: 180 RF: 3 Hold Instructions: Resume on 08/11/21. Discontinued metformin 1,000 mg tablet 1,000 mg PO BID Qty: 180 RF: 3 Discharge Orders: Discharge Order (Routine); Ordered 08/04/21 Ordered By: Magdy Mclaughlin Other Ambulatory Orders: Basic Metabolic Panel (Routine) Timeframe: 2 Days Facility: [facility] - Location: Lab - Main Lab Ordered By: Magdy Mclaughlin Complete Blood Count w/Auto (Routine) Timeframe: 1 Week Location: Determined by Patient Ordered By: Magdy Mclaughlin DME: Oxygen (Order) Location: None Selected Ordered By: Magdy Mclaughlin [place] [facility] [place] Belén Mccarty MD [Physician] - 7-10 days Saba Sims MD [Physician] - 2 weeks Discharge Diet: Cardiac Discharge Activity: Increase activity as tolerated Patient Instructions: Coronary Angioplasty (DC), Opioid Safety Activity Restrictions/Additional Instructions: Please come back to emergency room if blood oxygen number drops or if you develop shortness of breath, worsening cough, chest pain, increased oxygen demand, or any other new complaints. Please follow-up with your heart doctor as instructed. You are labs will need to be rechecked in several days to monitor anemia, kidney function, electrolytes. It is important. Additional testing might be necessary. Please report any signs of bleeding. Discharge Attestations Time Spent in Discharge Care*: greater than 30 min Quality Metrics Clinical Quality Measures During this hospital stay, did patient experience: None Coding Level of Care Code Acute Chg FW DC note Diagnoses NSTEMI (non-ST elevated myocardial infarction) I21.4 CAD (coronary artery disease) I25.118 Coronary Disease-Associated Artery/Lesion type: [place] artery [place] vs. transplanted heart: [place] heart Associated angina: with other forms of angina CKD (chronic kidney disease) stage 3, GFR 30-59 ml/min N18.30 Essential hypertension I10 Hypercholesterolemia E78.00 Diabetes mellitus, type II E11.22; N18.31 Diabetes mellitus chcf insulin use: without chcf use Diabetes mellitus complication status: with kidney complications Diabetes mellitus complication detail: with chronic kidney disease Chronic kidney disease stage: stage 3 (moderate) Chronic kidney disease stage 3 subtype: stage 3a (GFR 45-59)
[2021-08-04 15:40] LABS: Vitamin B12 150 pg/mL (232-1245)
[2021-08-04] MEDS: FUROsemide 20 mg Tablet 60 MG PO (15:44)
--- NOTE | 2021-08-04 17:00 | PC.NURSE ---
Pt discharged home. Pt IV removed no redness swelling noted. Pt discharge instructions given along with prescriptions and follow up appointment. Pt had no c/o pain or discomfort at the time of discharge.
== END 2021-08-04 16:30 | disposition home or self-care (01) | DRG 247 ==
LOC: ER 17:56 → CSU 19:04 → ICU 07-31 12:52 → CSU 08-02 16:29
PROVIDERS: Emergency Medicine; Internal Medicine; Internal Medicine Cardiovascular Disease; Admitting Provider Internal Medicine; Emergency Provider Family Medicine; PCP Internal Medicine; Visit Provider Internal Medicine
PROC: 027034Z Dilation of Coronary Artery, One Artery with Drug-eluting Intraluminal Device, Percutaneous Approach (ICD-10-PCS; principal; 2021-07-31 11:00)
PROC: 027034Z Dilation of Coronary Artery, One Artery with Drug-eluting Intraluminal Device, Percutaneous Approach (ICD-10-PCS; 2021-07-31 11:00)
DX: I21.4 Non-ST elevation (NSTEMI) myocardial infarction (principal); I25.719 Atherosclerosis of autologous vein coronary artery bypass graft(s) with unspecified angina pectoris; N17.9 Acute kidney failure, unspecified; I25.10 Atherosclerotic heart disease of native coronary artery without angina pectoris; Z95.5 Presence of coronary angioplasty implant and graft; Z95.1 Presence of aortocoronary bypass graft; F17.210 Nicotine dependence, cigarettes, uncomplicated; E11.22 Type 2 diabetes mellitus with diabetic chronic kidney disease; I12.9 Hypertensive chronic kidney disease with stage 1 through stage 4 chronic kidney disease, or unspecified chronic kidney disease; N18.31 Chronic kidney disease, stage 3a; E78.00 Pure hypercholesterolemia, unspecified; E78.5 Hyperlipidemia, unspecified; I49.5 Sick sinus syndrome; N14.1 Nephropathy induced by other drugs, medicaments and biological substances; T50.8X5A Adverse effect of diagnostic agents, initial encounter; D50.9 Iron deficiency anemia, unspecified; Z79.02 Long term (current) use of antithrombotics/antiplatelets; Z79.82 Long term (current) use of aspirin
CPT/HCPCS: 36415; 36416; 71045; 76770; 80048; 80053; 82607; 82728; 82746; 82962; 83036; 83540; 83550; 83735; 83880; 84443; 84484; 85025; 85730; 93005; 93308; 93455; 94640; 96361; 96372; 96374; 99285; C1725; C1769; C1874; C1887; C1894; C9600; J0360; J1644; J1650; J1815; J1940; J2250; J2270; J2405; J3010; J3490; J7030; J7040; Q0163; Q9967

== ENCOUNTER 2021-08-05 10:30 | Inpatient (IN) | payer MEDICARE, SELFPAY ==
[2021-08-05] VITALS (82 sets, daily range): BP systolic 129–178; BP diastolic 50–107; PULSE 78–101; RESP 17–35; TEMP 36.4; O2SAT 92–100; BMI 25.9
--- NOTE | 2021-08-05 10:41 | XR_ITS ---
WS: [id number] Portable AP upright chest, 08/05/2021 Clinical Data: dyspnea/cough Comparison: Portable chest, 07/30/2021. Findings: The heart is enlarged. The pulmonary vascularity is increased. There are small bilateral ef fusions. Midline sternotomy sutures are present. Monitor leads are on the chest wall. XR/XR chest 1V portable [id number] Impression: Moderate congestive heart failure.
--- NOTE | 2021-08-05 10:42 | ECG_ITS ---
[facility] Test Date: 2021-08-05 Pat Name: Luis Alfredo Thompson Department: Room: Gender: Male Tunnel Inspector: : 1955 Requested By: Brian Manzo Order Number: [id number] Jack MD: Yanci Somers M.D. Measurements Intervals [place] Rate: 82 P: 80 TN: 169 QRS: -18 QRSD: 145 T: 85 QT: 397 QTc: 464 Interpretive Statements SINUS RHYTHM INTRAVENTRICULAR CONDUCTION DELAY [130+ ms QRS DURATION] Diffuse nonspecific ST-T changes Compared to ECG 08/05/2021 10:45:04 No significant changes Electronically Signed On 08-06-2021 0:02:49 ADZING AND BORING MACHINE FEEDER by Yanci Somers M.D. [id number]
--- NOTE | 2021-08-05 10:43 | ED_ITS ---
HPI - SOB/Dyspnea General: Chief Complaint: Shortness of Breath/Dyspnea Stated Complaint: RESPIRATORY DISTRESS Time Seen by Provider: 08/05/21 10:32 History of Present Illness: HPI Narrative: 66-year-old male presents to the emergency room with complaint of shortness of breath and is diaphoretic. He was recently admitted with an NSTEMI. He also has a history of COPD EMS reports he was hypoxic at the scene and they turned him up to 15 L on nonrebreather on arrival here his oxygen sats are in the mid 90s however he is diaphoretic he denies any chest pain pain. He is awake and alert he was discharged yesterday from [facility]. MD elicited complaint: shortness of breath and cough Pertinent past history: COPD and congestive heart failure Onset (ago): hour(s) Timing: constant Severity: moderate Exacerbating factors: nothing Relieving factors: oxygen and bronchodilators Known history of: COPD, congestive heart failure, diabetes and other (Coronary artery disease) Associated symptoms: Deny abdominal pain, chest congestion, chest pain, cough, diaphoresis, dizziness, extremity pain, fever(s), hemoptysis, lightheadedness, myalgias, nausea, orthopnea, palpitations, paresthesias, polydipsia, polyuria, rash, sense of impending doom, syncope or vomiting Treatment prior to arrival: oxygen and bronchodilator Review of Systems Const: Denies: fever(s) or diaphoresis ENMT: Denies: throat pain, ear or mastoid pain, nasal discharge or nasal congestion Card: Denies: chest pain, palpitations, lightheadedness, syncope or orthopnea Resp: Denies: hemoptysis or chest congestion GI: Denies: abdominal pain, nausea or vomiting : Denies: flank pain, dysuria, urinary frequency or urinary urgency Musc: Denies: extremity pain Skin/Breast: Denies: rash or pruritus Neuro: Denies: dizziness Endo: Denies: polyuria or polydipsia PFSH ED PFSH: Medical History (Updated 08/05/21 @ 14:07 by Brian Fallon DO) CAD (coronary artery disease) CHF (congestive heart failure) Chronic kidney disease CKD (chronic kidney disease) stage 3, GFR 30-59 ml/min Diabetes mellitus, type II Essential hypertension Hypercholesterolemia Palpitations Surgical History History of appendectomy History of coronary artery stent placement Hx of CABG Family History Father Cancer Other Diabetes Social History Alcohol intake: current Alcohol intake frequency: few times a month Marital status: Number of children: 2 service: No Current gender identity: Male Physical Exam Const: GENERAL APPEARANCE: cooperative ORIENTATION/CONSCIOUSNESS: Yes awake, Yes oriented to person, Yes oriented to place and Yes oriented to time HENMT: COMMON NORMALS: normocephalic, atraumatic and hearing grossly normal bilaterally HEAD & SCALP: normocephalic and atraumatic Resp: AUSCULTATION: rhonchi and wheezes Cardio: COMMON NORMALS: regular rate, regular rhythm and No murmurs present (Cardio) RATE: regular rate RHYTHM: regular rhythm GI: COMMON NORMALS: Soft to palpation and No hepatosplenomegaly present AUSCULTATION: Yes normoactive bowel sounds PALPATION: Yes Soft to palpation, No Tenderness to palpation present (GI), No Guarding due to palpation present (GI) and Yes No hepatosplenomegaly present Extremity: COMMON NORMALS: normal to inspection, capillary refill normal, no clubbing, cyanosis or edema, no calf tenderness and no pedal edema Neuro: SENSORIUM/ORIENTATION: Yes oriented to person, Yes oriented to place and Yes oriented to time Skin: COMMON NORMALS: no rashes or lesions noted GENERAL SKIN EXAM: no rashes or lesions noted Course 2 Vital Signs: Vital signs: Vital Signs Temperature 97.6 F 08/05/21 11:30 Pulse Rate 81 08/05/21 13:25 Respiratory Rate 21 H 08/05/21 13:25 Blood Pressure 156/69 08/05/21 13:25 Pulse Oximetry 95 08/05/21 13:25 MDM - SOB/Dyspnea MDM Narrative: Medical decision making narrative: Initial EKG shows lateral ST depression. There is no significant ST depression majority of his EKG looks like it did not presented previously as did he continues to deny any chest pain he has very poor air exchange suspect he is in significant heart failure his first troponin is over 3000 discussed with hospitalist and with cardiology they asked us to order a stat echo. Initially patient had read hypercapnia on his ABG. He started on BiPAP his follow-up ABG showed significant improvement. Patient be admitted to the ICU orders are written. Lab Data: Labs: Lab Results 08/05/21 08/05/21 08/05/21 10:30 10:30 10:30 WBC 16.6 10^3/uL H 10 ^3/uL (4.0-10.0) RBC 3.52 10^6/uL L 10 ^6/uL (4.1-5.3) Hgb 10.7 g/dL L g/dL (11.7-16.6) Hct 34.4 % L % (42.0-52.0) MCV 97.7 fl H fl (80-94) MCH 30.4 pg pg (28.0-34.0) MCHC 31.1 g/dL g/dL (30.0-36.0) RDW 14.2 % % (12.1-15.1) Plt Count 542 10^3/cmm H 10 ^3/cmm (130-400) MPV 11.0 fL H fL (7.4-10.4) Neut % (Auto) 90.1 % % Lymph % (Auto) 4.5 % % [place] % (Auto) 4.5 % % Eos % (Auto) 0.1 % % Baso % (Auto) 0.2 % % Neut # (Auto) 14.96 10^3/uL H 1 0^3/uL (1.8-7.7) Lymph # (Auto) 0.8 10^3/uL 10^3/ uL (0.8-4.8) [place]od # (Auto) 0.7 10^3/uL 10^3/ uL (0.2-0.9) Eos # (Auto) 0.0 10^3/uL 10^3/ uL (0.0-0.8) Baso # (Auto) 0.0 10^3/uL 10^3/ uL (0.0-0.1) Nucleated RBC % (a uto) 0 % % Nucleated RBCs # 0.0 /100WBC /100W BC Specimen Type Sample Site ABG pH ABG pCO2 ABG pO2 ABG HCO3 ABG O2 Saturation ABG Base Excess Brian Test A-a O2 Gradient Hematocrit Hgb O2 Saturation Carboxyhemoglobin Methemoglobin Total Hemoglobin Ionized Calcium O2 Delivery Device O2 Liters/Min Supervisor Refractory Products ID Sodium 135 mmol/L L mmol /L (136-145) Potassium 5.9 mmol/L H mmol /L (3.5-5.1) Chloride 100 mmol/L mmol/L (98-107) Carbon Dioxide 18 mmol/L L mmol/ L (22-29) Anion Gap 22.9 H (5-19) BUN 48 mg/dL H mg/dL (8-23) Creatinine 3.4 mg/dL H mg/dL (0.7-1.2) GFR Calculation 18.2 mL/min L mL/ min (90-130) Glucose 333 mg/dL H mg/dL (65-115) Calculated Osmolal ity 306 mOsm/kg H mOs m/kg (285-295) Lactic Acid Calcium 8.0 mg/dL L mg/dL (8.5-10.5) Total Bilirubin 0.2 mg/dL mg/dL (0.15-1.2) AST 15 U/L U/L (0-40) ALT 15 U/L U/L (0-41) Alkaline Phosphata se 94 IU/L IU/L (40-130) Troponin T Baselin e 3037 ng/L H* ng/L (0-15) Total Protein 6.1 g/dL L g/dL (6.6-8.7) Albumin 3.3 g/dL L g/dL (3.5-5.2) Globulin 2.8 g/dL g/dL (1.3-4.6) 08/05/21 08/05/21 10:43 11:27 WBC RBC Hgb Hct MCV MCH MCHC RDW Plt Count MPV Neut % (Auto) Lymph % (Auto) [place]od % (Auto) Eos % (Auto) Baso % (Auto) Neut # (Auto) Lymph # (Auto) [place] # (Auto) Eos # (Auto) Baso # (Auto) Nucleated RBC % (a uto) Nucleated RBCs # Specimen Type Arterial Sample Site Brachial, left ABG pH 7.21 L (7.35-7.45) ABG pCO2 49.7 mmHg H mmHg (35-45) ABG pO2 82.9 mmHg mmHg (80.0-100.0) ABG HCO3 20.0 mmol/L L mmo l/L (22-26) ABG O2 Saturation 93.5 ABG Base Excess -7.7 mmol/L L mmo l/L (-2.0-2.0) Brian Test N/a A-a O2 Gradient 0.4 mmHg L mmHg (5-10) Hematocrit 34.2 % L % (42-52) Hgb O2 Saturation 91.8 % L % (95-100) Carboxyhemoglobin 0.7 %THgb %THgb (0.4-20.1) Methemoglobin 1.1 % % (0.4-1.5) Total Hemoglobin 11.2 g/dL L g/dL (14-18) Ionized Calcium 1.1 mmol/L mmol/L (1.1-1.4) O2 Delivery Device Simple mask O2 Liters/Min 8.0 % % Supervisor Refractory Products ID Ed Sodium 134.0 mmol/L mmol /L (131-143) Potassium 5.5 mmol/L H mmol /L (3.5-5.0) Chloride Carbon Dioxide Anion Gap BUN Creatinine GFR Calculation Glucose 356.0 mg/dL H mg/ dL (70-115) Calculated Osmolal ity Lactic Acid 1.4 mmol/L mmol/L (0.5-2.2) Calcium Total Bilirubin AST ALT Alkaline Phosphata se Troponin T Baselin e Total Protein Albumin Globulin Discharge Plan Discharge Patient Disposition: Admitted As Inpatient Admit Provider: Magdy Mclaughlin Clinical Impression: CHF (congestive heart failure), CAD (coronary artery disease), Non-ST elevation [place] (NSTEMI), Diabetes mellitus, type II, CKD (chronic kidney disease) stage 3, GFR 30-59 ml/min, Anemia, iron deficiency Condition: Stable Coding Level of Care Code ED Mobile Lounge Driver Or Operator for Chg Fwd Exam Detailed
[2021-08-05 10:51] LABS: Basophils % 0.2 %; Eosinophils % 0.1 %; Hematocrit 34.4 % (42.0-52.0); Hemoglobin 10.7 g/dL (11.7-16.6); Lymphocytes # 0.8 10^3/uL (0.8-4.8); Lymphocytes % 4.5 %; Mean Corpuscular HGB Conc 31.1 g/dL (30.0-36.0); Mean Corpuscular Hemoglobin 30.4 pg (28.0-34.0); Mean Corpuscular Volume 97.7 fl (80-94); Monocytes # 0.7 10^3/uL (0.2-0.9); Monocytes % 4.5 %; Neutrophils # 14.96 10^3/uL (1.8-7.7); Neutrophils % 90.1 %; Nucleated Red Blood Cells % 0 %; Platelet Count 542 10^3/cmm (130-400); Red Blood Count 3.52 10^6/uL (4.1-5.3); Red Cell Distribution Width 14.2 % (12.1-15.1); White Blood Count 16.6 10^3/uL (4.0-10.0)
[2021-08-05 10:53] LABS: ABG PCO2 49.7 mmHg (35-45); ABG PH Result 7.21 (7.35-7.45); Alveolar-Arterial Oxygen Gradi 0.4 mmHg (5-10); Arterial Blood Gas Hematocrit 34.2 % (42-52); Base Excess ABG -7.7 mmol/L (-2.0-2.0); Blood Gas Sample Type Arterial; Carboxyhemoglobin 0.7 %THgb (0.4-20.1); HGB O2 Sat 91.8 % (95-100); Ionized Calcium Level - ABG 1.1 mmol/L (1.1-1.4); Methemoglobin 1.1 % (0.4-1.5); Oxygen Saturation ABG 93.5; PO2 ABG 82.9 mmHg (80.0-100.0); Potassium Level - ABG 5.5 mmol/L (3.5-5.0); Total Hemoglobin 11.2 g/dL (14-18)
[2021-08-05 10:54] LABS: Blood Gas Operator Identificat ED; Blood Gas Sample Site Brachial, left; Oxygen Device SIMPLE MASK
[2021-08-05 11:05] LABS: Alanine Aminotransferase 15 U/L (0-41); Albumin Level 3.3 g/dL (3.5-5.2); Alkaline Phosphatase 94 IU/L (40-130); Anion Gap 22.9 (5-19); Aspartate Amino Transferase 15 U/L (0-40); Blood Urea Nitrogen 48 mg/dL (8-23); Carbon Dioxide 18 mmol/L (22-29); Chloride 100 mmol/L (98-107); Globulin 2.8 g/dL (1.3-4.6); Glomerular Filtration Rate 18.2 mL/min (90-130); Glucose 333 mg/dL (65-115); Osmolality Calculated 306 mOsm/kg (285-295); Potassium 5.9 mmol/L (3.5-5.1); Sodium 135 mmol/L (136-145); Total Bilirubin 0.2 mg/dL (0.15-1.2); Total Protein 6.1 g/dL (6.6-8.7)
[2021-08-05 11:10] LABS: Troponin(5th) Baseline 3037 ng/L (0-15)
[2021-08-05] MEDS: nitroglycerin drip 50 MG/250 ML PREMIX IV (11:29)
--- NOTE | 2021-08-05 12:03 | USCV_ITS ---
Luis Alfredo Thompson Age: 66 Gender: M : 1955 Exam Date: 08/05/2021 12:26 Ordering Phys: Brian Fallon DO Technologist: Aurelia Aguilar Exam Location: [facility]_ Indication: NSTEMI/CHF BP: 152 / 69 HR: 82 Rhythm: Sinus Technical Quality: Adequate MEASUREMENTS (Male / Female) Normal Values 2D ECHO LV Diastolic Diameter PLAX 4.3 cm 4.2 - 5.9 / 3.9 - 5.3 cm LV Systolic Diameter PLAX 3.5 cm IVS Diastolic Thickness 1.6 cm 0.6 - 1.0 / 0.6 - 0.9 cm IVS Systolic Thickness 1.7 cm LVPW Diastolic Thickness 1.4 cm 0.6 - 1.0 / 0.6 - 0.9 cm LVPW Systolic Thickness 1.5 cm LVOT Diameter 2.0 cm LV Ejection Fraction 2D Teich 36.3 % LV Ejection Fraction MOD 2C 39.8 % LV Ejection Fraction 2C AL 39.0 % LA Diameter 3.5 cm LA Width 3.6 cm LA Height 4.8 cm RA Width 3.6 cm RA Height 4.2 cm Aorta at Sinotubular Diameter 2.0 cm DOPPLER Right Atrial Pressure 3.0 mmHg FINDINGS Left Ventricle Right Ventricle Right Atrium Left Atrium Mitral Valve Aortic Valve Tricuspid Valve Pulmonic Valve Pericardium Aorta CONCLUSIONS This is a limited echocardiogram performed to assess LV systolic function. LV systolic function is moderately reduced with EF of 35 to 40%. There is moderate hypokinesis of anterolateral wall. Compared to prior echocardiogram from July 31, 2021, LV systolic function is decreased with regional wall motion abnormalities. Francis Israel MD (Electronically Signed) Final Date: 05 August 2021 13:23 S
[2021-08-05 12:04] LABS: Lactic Sepsis W/Reflex 1.4 mmol/L (0.5-2.2)
[2021-08-05] MEDS: insulin regular-human 100 units/1 mL 15 UNIT IVP (12:42)
--- NOTE | 2021-08-05 12:42 | ECG_ITS ---
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 Measurements Intervals [place] Rate: 84 P: 80 [place]: 194 QRS: -17 QRSD: 162 T: 81 QT: 385 QTc: 457 Interpretive Statements SINUS RHYTHM INTRAVENTRICULAR CONDUCTION DELAY [130+ ms QRS DURATION] Compared to ECG 07/31/2021 13:48:27 Sinus tachycardia no longer present Myocardial infarct finding no longer present Electronically Signed On 08-06-2021 0:13:27 [employer]ON BRUSHES ASSEMBLER by Yanci Somers M.D. [id number]
[2021-08-05] MEDS: calcium gluconate 0.1 gm/mL 10% SDV 10mL 1 GM IVP (12:45)
--- NOTE | 2021-08-05 12:58 | PC.NURSE ---
attempted to call Dr Mclaughlin, no answer
--- NOTE | 2021-08-05 13:22 | PM.HP ---
Providers/Chief Complaint Admitting Physician: Magdy Mclaughlin Primary Care Provider: Joce Hodge MD Chief Complaint: RESPIRATORY DISTRESS History of Present Illness Luis Alfredo Thompson is a 66 year old male with past medical history of coronary artery disease, chronic kidney disease, diabetes, COPD, tobacco abuse, pretension, dyslipidemia who was discharged yesterday from this hospital after hospitalization for coronary artery disease, status post cardiac catheterization and drug-eluting stent placement to SVG to PDA, associated acute kidney injury suspected to be secondary to contrast-induced nephropathy. Yesterday the patient did not want to stay longer to be monitored and be managed accordingly. Today he is returning with severe shortness of breath. The worsening started in the evening and progressively got worse and became very severe in the morning. From the description of the patient's the patient experienced PND and orthopnea. No associated chest pain, cough, fever or chills, nausea or vomiting. In the emergency room the patient was found to be in severe respiratory distress and hypoxia. We will started on BiPAP. Chest x-ray revealed CHF. He has elevated BNP and severely elevated troponin level. EKG without ST elevation. Unchanged since his previous EKG. Please see previous discharge summary, progress notes, procedure notes, and H&P for more details regarding previous hospitalization. Review of Systems General: Reports: 10 or more systems reviewed and unremarkable except in HPI and below Medications/Allergies Home Medications Medication Instructions Recorded Confirmed Last Taken Type loratadine 10 mg tablet 10 mg PO DAILY 09/12/20 08/05/21 08/04/21 History nitroglycerin 0.4 mg sublingual 0.4 mg SUBLINGUAL Q5M PRN #25 tab 04/18/21 08/05/21 08/04/21 Rx tablet simethicone 250 mg capsule 250 mg PO QID PRN 04/18/21 08/05/21 07/30/21 15:30 History albuterol sulfate [ProAir HFA] 2 puff INHALATION Q4H PRN 07/15/21 08/05/21 Unknown History ascorbic acid (vitamin C) [Vitamin 500 mg PO QAM 07/15/21 08/05/21 08/04/21 History C] aspirin 81 mg PO QAM 07/15/21 08/05/21 08/04/21 History calcium carbonate 500 mg PO PRN PRN 07/15/21 08/05/21 Unknown History vitamin E 400 unit PO QAM 07/15/21 08/05/21 07/30/21 History furosemide [Lasix] 20 mg PO DAILY PRN #30 tab 07/17/21 08/05/21 Unknown Rx hydralazine 100 mg PO TID #405 tab 07/17/21 08/05/21 08/04/21 Rx prazosin 1 mg capsule 1 mg PO BID #60 cap 07/21/21 08/05/21 08/04/21 Rx vitamins A,C,P-nhnj-nzcdmr 14,320 1 cap PO DAILY 07/21/21 08/05/21 Unknown History unit-226 mg-200 unit capsule clopidogrel 75 mg PO QAM 07/30/21 08/05/21 08/04/21 History isosorbide mononitrate 60 mg PO BID 07/30/21 08/05/21 08/04/21 History pantoprazole 40 mg PO DAILY@12 07/30/21 08/05/21 08/04/21 History rosuvastatin 5 mg PO DAILY@12 07/30/21 08/05/21 08/04/21 History clonidine HCl 0.1 mg PO BID PRN #0 tab 08/04/21 08/05/21 07/30/21 08:00 Rx ferrous sulfate 325 mg PO BIDWM #60 tab 08/04/21 08/05/21 08/04/21 Rx glimepiride 2 mg PO BID #60 tab 08/04/21 08/05/21 08/04/21 Rx nifedipine 90 mg PO DAILY #90 tab 08/04/21 08/05/21 08/04/21 Rx ranolazine 500 mg PO BID #60 tab 08/04/21 08/05/21 08/04/21 Rx Allergies Allergy/AdvReac Type Severity Reaction Status Date / Time Penicillins Allergy ALGY-Anaphy Verified 08/05/21 11:30 laxis cillins Allergy ALGY-Anaphy Uncoded 08/05/21 11:30 laxis PFSH Acute PFSH: Medical History (Updated 08/05/21 @ 13:31 by Magdy Mclaughlin) CAD (coronary artery disease) CHF (congestive heart failure) Chronic kidney disease CKD (chronic kidney disease) stage 3, GFR 30-59 ml/min Diabetes mellitus, type II Essential hypertension Hypercholesterolemia Palpitations Surgical History History of appendectomy History of coronary artery stent placement Hx of CABG Family History Father Cancer Other Diabetes Social History Alcohol intake: current Alcohol intake frequency: few times a month Marital status: Number of children: 2 service: No Current gender identity: Male Vitals/I&O/Wt Last Vital Signs Temp 97.6 F 08/05/21 11:30 Pulse 82 08/05/21 12:59 Resp 30 H 08/05/21 12:59 BP 155/80 08/05/21 12:45 Pulse Ox 96 08/05/21 12:59 Weight last 48 hrs Weight 68.492 kg Physical Exam Narrative: EXAM NARRATIVE: The patient is awake, alert, oriented x4. Currently no acute distress. Responses are adequate. Skin is warm and dry. Supple neck. No JVD Lungs decreased breath sounds and bibasilar crackles. Currently on BiPAP. Has mild tachypnea. Heart S1, S2, regular Abdomen is soft, nontender, bowel sounds are present Extremities severe increased bilateral pedal edema. No cyanosis or calf tenderness bilaterally. Neuro examination is nonfocal. Data : 08/05/21 10:30 08/05/21 10:30 Other Labs: Laboratory Results WBC 16.6 10^3/uL (4.0-10.0) H 08/05/21 10:30 RBC 3.52 10^6/uL (4.1-5.3) L 08/05/21 10:30 Hgb 10.7 g/dL (11.7-16.6) L 08/05/21 10:30 Hct 34.4 % (42.0-52.0) L 08/05/21 10:30 MCV 97.7 fl (80-94) H 08/05/21 10:30 MCH 30.4 pg (28.0-34.0) 08/05/21 10:30 MCHC 31.1 g/dL (30.0-36.0) 08/05/21 10:30 RDW 14.2 % (12.1-15.1) 08/05/21 10:30 Plt Count 542 10^3/cmm (130-400) H 08/05/21 10:30 MPV 11.0 fL (7.4-10.4) H 08/05/21 10:30 Neut % (Auto) 90.1 % 08/05/21 10:30 Lymph % (Auto) 4.5 % 08/05/21 10:30 [place] % (Auto) 4.5 % 08/05/21 10:30 Eos % (Auto) 0.1 % 08/05/21 10:30 Baso % (Auto) 0.2 % 08/05/21 10:30 Neut # (Auto) 14.96 10^3/uL (1.8-7.7) H 08/05/21 10:30 Lymph # (Auto) 0.8 10^3/uL (0.8-4.8) 08/05/21 10:30 [place] # (Auto) 0.7 10^3/uL (0.2-0.9) 08/05/21 10:30 Eos # (Auto) 0.0 10^3/uL (0.0-0.8) 08/05/21 10:30 Baso # (Auto) 0.0 10^3/uL (0.0-0.1) 08/05/21 10:30 Nucleated RBC % (auto) 0 % 08/05/21 10:30 Nucleated RBCs # 0.0 /100WBC 08/05/21 10:30 Specimen Type Arterial 08/05/21 10:43 Sample Site Brachial, left 08/05/21 10:43 ABG pH 7.21 (7.35-7.45) L 08/05/21 10:43 ABG pCO2 49.7 mmHg (35-45) H 08/05/21 10:43 ABG pO2 82.9 mmHg (80.0-100.0) 08/05/21 10:43 ABG HCO3 20.0 mmol/L (22-26) L 08/05/21 10:43 ABG O2 Saturation 93.5 08/05/21 10:43 ABG Base Excess -7.7 mmol/L (-2.0-2.0) L 08/05/21 10:43 Brian Test N/a 08/05/21 10:43 A-a O2 Gradient 0.4 mmHg (5-10) L 08/05/21 10:43 Hematocrit 34.2 % (42-52) L 08/05/21 10:43 Hgb O2 Saturation 91.8 % (95-100) L 08/05/21 10:43 Carboxyhemoglobin 0.7 %THgb (0.4-20.1) 08/05/21 10:43 Methemoglobin 1.1 % (0.4-1.5) 08/05/21 10:43 Total Hemoglobin 11.2 g/dL (14-18) L 08/05/21 10:43 Sodium 134.0 mmol/L (131-143) 08/05/21 10:43 Potassium 5.5 mmol/L (3.5-5.0) H 08/05/21 10:43 Glucose 356.0 mg/dL (70-115) H 08/05/21 10:43 Ionized Calcium 1.1 mmol/L (1.1-1.4) 08/05/21 10:43 O2 Delivery Device Simple mask 08/05/21 10:43 O2 Liters/Min 8.0 % 08/05/21 10:43 Saddle Stitch Operator ID Ed 08/05/21 10:43 Sodium 135 mmol/L (136-145) L 08/05/21 10:30 Potassium 5.9 mmol/L (3.5-5.1) H 08/05/21 10:30 Chloride 100 mmol/L (98-107) 08/05/21 10:30 Carbon Dioxide 18 mmol/L (22-29) L 08/05/21 10:30 Anion Gap 22.9 (5-19) H 08/05/21 10:30 BUN 48 mg/dL (8-23) H 08/05/21 10:30 Creatinine 3.4 mg/dL (0.7-1.2) H 08/05/21 10:30 GFR Calculation 18.2 mL/min (90-130) L 08/05/21 10:30 Glucose 333 mg/dL (65-115) H 08/05/21 10:30 Calculated Osmolality 306 mOsm/kg (285-295) H 08/05/21 10:30 Lactic Acid 1.4 mmol/L (0.5-2.2) 08/05/21 11:27 Calcium 8.0 mg/dL (8.5-10.5) L 08/05/21 10:30 Total Bilirubin 0.2 mg/dL (0.15-1.2) 08/05/21 10:30 AST 15 U/L (0-40) 08/05/21 10:30 ALT 15 U/L (0-41) 08/05/21 10:30 Alkaline Phosphatase 94 IU/L (40-130) 08/05/21 10:30 Troponin T Baseline 3037 ng/L (0-15) H* 08/05/21 10:30 Troponin T 120 Minute 2872 ng/L (0-15) H 08/05/21 12:55 Delta Troponin T -165 ABS# (0-10) L 08/05/21 12:55 Total Protein 6.1 g/dL (6.6-8.7) L 08/05/21 10:30 Albumin 3.3 g/dL (3.5-5.2) L 08/05/21 10:30 Globulin 2.8 g/dL (1.3-4.6) 08/05/21 10:30 Impressions Chest X-Ray 08/05/21 10:41 Impression: Moderate congestive heart failure. Micro: Microbiology 08/05/21 11:27 Blood Culture - Preliminary Blood SPECIMEN COLLECTED 08/05/21 11:27 Blood Culture - Preliminary Blood SPECIMEN COLLECTED A&P Assessment and plan (1) Acute respiratory failure: Status: Acute (2) CHF (congestive heart failure): Status: Acute Qualifiers: Heart failure type: systolic Heart failure chronicity: chronic Qualified Code(s): I50.22 - Chronic systolic (congestive) heart failure (3) Non-ST elevation [place] (NSTEMI): Status: Acute (4) Renal failure (ARF), acute on chronic: Status: Acute (5) Hyperkalemia: Status: Acute (6) Essential hypertension: Status: Chronic (7) Diabetes mellitus, type II: Status: Acute (8) Anemia, iron deficiency: Status: Acute Additional A&P Information 66-year-old male being readmitted after discharge yesterday. He is presenting with acute respiratory failure probably secondary to congestive heart failure/pulmonary edema related to non-ST elevation [place] and acute on chronic kidney failure with associated volume overload. Acute respiratory failure. Stabilized with BiPAP. Going to ICU. We will continue adjusting the treatments accordingly. Will order ABG. If worsens will consider intubation. Congestive heart failure acute exacerbation. Echo is ordered and pending. Was seen and evaluated by Dr. Israel. We appreciate his input. Will wait for additional recommendations. For now we will continue nitroglycerin drip. Diuresis will be challenging due to acute kidney injury. Non-ST elevation [place]. Discussed with Dr. Israel. We will start him on heparin drip. We will continue home dual antiplatelet therapy. We will also order Lipitor 80 mg daily. Might require cardiac catheterization. Acute on chronic kidney injury. Recent use of contrast for cardiac catheterization and possible contrast-induced nephropathy. Requesting nephrology consultation. Appreciate Dr. Kaminski's input. Hyperkalemia. We will avoid medications which can increase potassium level. The patient might need dialysis if his renal function does not improve soon. Uncontrolled hypertension, hypertensive urgency. Continue nitroglycerin drip. We will also order as needed hydralazine. Will adjust maintenance medications after stabilization. Anemia. Will monitor. Will resume iron replacement therapy after stabilization. DVT prophylaxis. He will be on heparin drip. CODE STATUS. The patient and his want him to be full code. The plan of care was discussed in details with the patient and his . I answered to all their questions to the best of my knowledge. I was very clear that patient's condition is very serious and negative outcomes are possible. They verbalized understanding and agreement. They verbalized the section of the conversation. Attestations Medical Necessity Statement*: Patient is in critical condition. He is going to ICU. Critical care time spent on this encounter is 60 minutes. Coding Level of Care Code Acute [employer] for [employer] [place] Diagnoses Acute respiratory failure J96.00 CHF (congestive heart failure) I50.22 Heart failure type: systolic Heart failure chronicity: chronic Non-ST elevation [place] (NSTEMI) I21.4 Renal failure (ARF), acute on chronic N17.9; N18.9 Hyperkalemia E87.5 Essential hypertension I10 Diabetes mellitus, type II E11.9 Anemia, iron deficiency D50.9
[2021-08-05 13:28] LABS: Troponin 5 2HR 2872 ng/L (0-15); Troponin 5 2HR Delta -165 ABS# (0-10)
--- NOTE | 2021-08-05 14:53 | PM.CONSULT ---
Providers/Reason For Consult Consulting Physician/Specialty*: Nephrology Reason for Consult*: Eval for renal failure Attending Physician: Magdy Mclaughlin Primary Care Provider: Joce Hodge MD History of Present Illness History of Present Illness Thank you for consultation, today the pleasure reviewing this pleasant 66-year-old gentleman in the presence of his for evaluation of acute on chronic kidney disease. He originally presented to our facility back on 07/30 with substernal chest pain with acute EKG changes and elevated troponin. He subsequently was seen by cardiology, undergoing left heart cath on 07/31 and underwent successful revascularization with DIAN x1 at anastomosis of SVG to PDA. It was noted after the procedure that his serum creatinine did start to increase and on 08/03 intravenous fluids with resumed, with intravenous boluses given. Urine output did remain robust. On 08/04 he was subsequently discharged, it is noted that he did have some fluid overload and did receive diuretics at the time of his discharge. He now presents to our facility today with increasing shortness of breath. Chest x-ray demonstrates CHF, BNP is elevated, he has significant swelling in his arms, legs, abdominal distention. Yesterday he did undergo ultrasound scan of his kidneys which demonstrated of both kidneys appeared relatively normal in length, with normal echogenicity and no evidence of hydronephrosis, some simple cysts were noted. Since admission to the emergency room, a nitro infusion has begun and he has been started on BiPAP. He does feel significantly improved and is quite comfortable now. He has made very little urine, roughly 100 mL of urine since 9:00 this morning. His baseline serum creatinine is roughly 1.6-1.8. On 07/31 his creatinine was 1.6, the following day up to 1.9 and over the last few days has been in the mid 3 range, today it is 3.4 mg/dL. He denies any bladder outflow obstructive symptoms. Denies any uremic symptoms. His blood pressure is robust today, 156/69. Review of Systems Narrative: ROS - 12 point review of systems completed per HPI and subjective assessment, this includes Constitutional: Weakness, fatigue Respiratory: SOB on exertion and on rest CardioVasc: No chest pain, palpitations Gastrointestinal: No nausea, no vomiting Neurological: No seizures, no AMS Derm: No new rashes, lesions or wounds Immunological: No seasonal and no food allergies Meds/Allergies Home Medications and Allergies Home Medications Medication Instructions Recorded Confirmed Last Taken Type loratadine 10 mg tablet 10 mg PO DAILY 09/12/20 08/05/21 08/04/21 History nitroglycerin 0.4 mg sublingual 0.4 mg SUBLINGUAL Q5M PRN #25 tab 04/18/21 08/05/21 08/04/21 Rx tablet simethicone 250 mg capsule 250 mg PO QID PRN 04/18/21 08/05/21 07/30/21 15:30 History albuterol sulfate [ProAir HFA] 2 puff INHALATION Q4H PRN 07/15/21 08/05/21 Unknown History ascorbic acid (vitamin C) [Vitamin 500 mg PO QAM 07/15/21 08/05/21 08/04/21 History C] aspirin 81 mg PO QAM 07/15/21 08/05/21 08/04/21 History calcium carbonate 500 mg PO PRN PRN 07/15/21 08/05/21 Unknown History vitamin E 400 unit PO QAM 07/15/21 08/05/21 07/30/21 History furosemide [Lasix] 20 mg PO DAILY PRN #30 tab 07/17/21 08/05/21 Unknown Rx hydralazine 100 mg PO TID #405 tab 07/17/21 08/05/21 08/04/21 Rx prazosin 1 mg capsule 1 mg PO BID #60 cap 07/21/21 08/05/21 08/04/21 Rx vitamins A,C,Q-umni-ilpztx 14,320 1 cap PO DAILY 07/21/21 08/05/21 Unknown History unit-226 mg-200 unit capsule clopidogrel 75 mg PO QAM 07/30/21 08/05/21 08/04/21 History isosorbide mononitrate 60 mg PO BID 07/30/21 08/05/21 08/04/21 History pantoprazole 40 mg PO DAILY@07/30/21 08/05/21 08/04/21 History rosuvastatin 5 mg PO DAILY@12 07/30/21 08/05/21 08/04/21 History clonidine HCl 0.1 mg PO BID PRN #0 tab 08/04/21 08/05/21 07/30/21 08:00 Rx ferrous sulfate 325 mg PO BIDWM #60 tab 08/04/21 08/05/21 08/04/21 Rx glimepiride 2 mg PO BID #60 tab 08/04/21 08/05/21 08/04/21 Rx nifedipine 90 mg PO DAILY #90 tab 08/04/21 08/05/21 08/04/21 Rx ranolazine 500 mg PO BID #60 tab 08/04/21 08/05/21 08/04/21 Rx Allergies Allergy/AdvReac Type Severity Reaction Status Date / Time Penicillins Allergy ALGY-Anaphy Verified 08/05/21 11:30 laxis cillins Allergy ALGY-Anaphy Uncoded 08/05/21 11:30 laxis Current Medications Current Medications Generic Name Dose Route Start Last Admin Trade Name Freq PRN Reason Stop Dose Admin Nitroglycerin/Dextrose 50 mg in 250 mls @ 0 mls/hr 08/05/21 11:15 08/05/21 11:29 Nitroglycerin Drip IV 10 mcg/min .Q0M SUNSHINE 3 mls/hr Administration Protocol Per Protocol PFSH Acute PFSH: Medical History (Updated 08/05/21 @ 14:07 by Brian Fallon DO) CAD (coronary artery disease) CHF (congestive heart failure) Chronic kidney disease CKD (chronic kidney disease) stage 3, GFR 30-59 ml/min Diabetes mellitus, type II Essential hypertension Hypercholesterolemia Palpitations Surgical History History of appendectomy History of coronary artery stent placement Hx of CABG Family History Father Cancer Other Diabetes Social History Alcohol intake: current Alcohol intake frequency: few times a month Marital status: Number of children: 2 service: No Current gender identity: Male Vitals/I&O/Wt Last Vital Signs Temp 97.6 F 08/05/21 11:30 Pulse 86 08/05/21 14:46 Resp 21 H 08/05/21 13:25 BP 156/69 08/05/21 13:25 Pulse Ox 97 08/05/21 14:50 Weight last 48 hrs Weight 68.492 kg Physical Exam Narrative: EXAM NARRATIVE: Constitutional: Awake, comfortable HEENT: Wet mucosa, elevated jvp, non icteric Lungs: Bilaterally clear without discernible wheeze, rales in all lung zones CVS: S1 S2, no murmurs Abdo: Firm, quiet BS Ext 4: 2-3+ edema, peripheral perfusion with no cyanosis Neurological: Grossly non-focal Data Micro: Micro: Microbiology 08/05/21 11:27 Blood Culture - Pr eliminary Blood SPECIMEN [facility] 08/05/21 11:27 Blood Culture - Pr eliminary Blood SPECIMEN [facility] A&P Additional A&P Information 1. Acute renal failure. Although his serum creatinine is stable over the last few days, his poor urine output over the course of today is an ominous sign. Is likely that he has contrast nephropathy in combination with cardiorenal syndrome. I will give him Lasix 100 mg IV push with some metolazone, hopefully this will be effective in treating the cardiorenal syndrome aspect of his acute kidney injury, if unsuccessful, it is likely he will require hemodialysis. No need for further imaging given the ultrasound scan yesterday Feng catheter replaced We will get urinalysis, CPK, TSH, urinalysis, fractional excretion of sodium and urea. Strict I's and O's Dose medication for GFR less than 15 Avoid usual nephrotoxic agents 2. Chemistry Hyperkalemia noted, he did get hyperK cocktail in the emergency room, if diuretics are effective this will help to bring it down. Other chemistries mildly aberrant including anion gap metabolic acidosis, will continue to follow closely. 3. Status post recent coronary intervention Management per cardiology, remains on aspirin and Plavix. Thank for consultation, as always it is a pleasure to follow these patients with you Dusty Jason MD Nephrology [phone] Patient seen and examined via telemedicine, with the assistance of the bedside RN > 25 min spent in evaluation and mgmt of patient Consult Attestations Medical Necessity Statement: Eval for MARCELO Coding Level of Care Code Acute Data Center Operator for Hong Cunningham
--- NOTE | 2021-08-05 14:55 | PM.CONSULT ---
Providers/Reason For Consult Consulting Physician/Specialty*: Francis Israel MD/ Interventional Cardiology Reason for Consult*: NSTEMI Requesting Physician: Dr Fallon Attending Physician: Magdy Mclaughlin Primary Care Provider: Joce Hodge MD History of Present Illness History of Present Illness Luis Alfredo Thompson is a 66 year old male with past medical history of coronary artery disease with recent stent to SVG to PDA and NSTEMI, chronic kidney disease, diabetes, COPD, tobacco abuse, dyslipidemia has presented with respiratory distress. He was discharged home yesterday. He had developed MARCELO on CKD likely secondary to contrast-induced nephropathy during last admission. According to his he felt progressively short of breath with dropping O2 levels overnight. This morning he came back to the ER. Denies chest pain. His initial troponin is over 3000. EKG shows normal sinus rhythm with intraventricular conduction delay however no ST elevations are seen. Bedside stat echocardiogram has revealed LV systolic function is moderately reduced with EF of 35 to 40% and moderate hypokinesis of anterolateral wall. He is volume overloaded. Review of Systems General: Reports: 10 or more systems reviewed and unremarkable except in HPI and below Meds/Allergies Home Medications and Allergies Home Medications Medication Instructions Recorded Confirmed Last Taken Type loratadine 10 mg tablet 10 mg PO DAILY 09/12/20 08/05/21 08/04/21 History nitroglycerin 0.4 mg sublingual 0.4 mg SUBLINGUAL Q5M PRN #25 tab 04/18/21 08/05/21 08/04/21 Rx tablet simethicone 250 mg capsule 250 mg PO QID PRN 04/18/21 08/05/21 07/30/21 15:30 History albuterol sulfate [ProAir HFA] 2 puff INHALATION Q4H PRN 07/15/21 08/05/21 Unknown History ascorbic acid (vitamin C) [Vitamin 500 mg PO QAM 07/15/21 08/05/21 08/04/21 History C] aspirin 81 mg PO QAM 07/15/21 08/05/21 08/04/21 History calcium carbonate 500 mg PO PRN PRN 07/15/21 08/05/21 Unknown History vitamin E 400 unit PO QAM 07/15/21 08/05/21 07/30/21 History furosemide [Lasix] 20 mg PO DAILY PRN #30 tab 07/17/21 08/05/21 Unknown Rx hydralazine 100 mg PO TID #405 tab 07/17/21 08/05/21 08/04/21 Rx prazosin 1 mg capsule 1 mg PO BID #60 cap 07/21/21 08/05/21 08/04/21 Rx vitamins A,C,I-gphg-xqtwgl 14,320 1 cap PO DAILY 07/21/21 08/05/21 Unknown History unit-226 mg-200 unit capsule clopidogrel 75 mg PO QAM 07/30/21 08/05/21 08/04/21 History isosorbide mononitrate 60 mg PO BID 07/30/21 08/05/21 08/04/21 History pantoprazole 40 mg PO DAILY@07/30/21 08/05/21 08/04/21 History rosuvastatin 5 mg PO DAILY@12 07/30/21 08/05/21 08/04/21 History clonidine HCl 0.1 mg PO BID PRN #0 tab 08/04/21 08/05/21 07/30/21 08:00 Rx ferrous sulfate 325 mg PO BIDWM #60 tab 08/04/21 08/05/21 08/04/21 Rx glimepiride 2 mg PO BID #60 tab 08/04/21 08/05/21 08/04/21 Rx nifedipine 90 mg PO DAILY #90 tab 08/04/21 08/05/21 08/04/21 Rx ranolazine 500 mg PO BID #60 tab 08/04/21 08/05/21 08/04/21 Rx Allergies Allergy/AdvReac Type Severity Reaction Status Date / Time Penicillins Allergy ALGY-Anaphy Verified 08/05/21 11:30 laxis cillins Allergy ALGY-Anaphy Uncoded 08/05/21 11:30 laxis Current Medications Current Medications Generic Name Dose Route Start Last Admin Trade Name Freq PRN Reason Stop Dose Admin Nitroglycerin/Dextrose 50 mg in 250 mls @ 0 mls/hr 08/05/21 11:15 08/05/21 11:29 Nitroglycerin Drip IV 10 mcg/min .Q0M SUNSHINE 3 mls/hr Administration Protocol Per Protocol PFSH Acute PFSH: Medical History CAD (coronary artery disease) CHF (congestive heart failure) Chronic kidney disease CKD (chronic kidney disease) stage 3, GFR 30-59 ml/min Diabetes mellitus, type II Essential hypertension Hypercholesterolemia Palpitations Surgical History History of appendectomy History of coronary artery stent placement Hx of CABG Family History Father Cancer Other Diabetes Social History Alcohol intake: current Alcohol intake frequency: few times a month Marital status: Number of children: 2 service: No Current gender identity: Male Vitals/I&O/Wt Last Vital Signs Temp 97.6 F 08/05/21 11:30 Pulse 86 08/05/21 14:46 Resp 21 H 08/05/21 13:25 BP 156/69 08/05/21 13:25 Pulse Ox 97 08/05/21 14:50 Weight last 48 hrs Weight 151 lb Physical Exam Narrative: EXAM NARRATIVE: GENERAL: Patient is drowsy, on BiPAP HEENT: No cyanosis. No icterus. No pallor. [] HEART: Regular S1 and S2. No murmur, rub or gallop. [] LUNGS: Has crackles ABDOMEN: Soft CENTRAL NERVOUS SYSTEM: Grossly nonfocal. [] EXTREMITIES: Lower extremities with 2+ pitting edema Data Micro: Micro: Microbiology 08/05/21 11:27 Blood Culture - Pr eliminary Blood SPECIMEN [facility] 08/05/21 11:27 Blood Culture - Pr eliminary Blood SPECIMEN [facility] A&P Assessment and plan (1) Hyperkalemia: Status: Acute (2) CHF (congestive heart failure): Status: Acute (3) Acute respiratory failure: Status: Acute (4) Non-ST elevation PR (NSTEMI): Status: Acute (5) Diabetes mellitus, type II: Status: Acute (6) CAD (coronary artery disease): Status: Acute (7) Essential hypertension: Status: Chronic Patient has significant respiratory distress and congestive heart failure. He is volume overloaded. Given his recent MARCELO on CKD likely secondary to contrast-induced nephropathy and cardiorenal syndrome, will recommend consulting nephrology. He will need Lasix and if they do not improve volume overload, he will need hemodialysis. His troponin is significantly elevated. Echocardiogram is revealing new wall motion abnormality with EF drop. Will treat as non-ST elevation PR IV heparin. Continue aspirin and Plavix. Trend troponin Based on his clinical progress, we can discuss further ischemic work-up. However regional wall motion abnormality is in the anterolateral wall, likely left circumflex territory that was ischemic or could now be completely occluded. It was diffusely diseased vessel which did not appear to be revascularizable in the past. Thank you for involving us with care of this patient. We will continue to follow. Please call with questions Coding Level of Care Code Acute Straightening Machine Operator for Hong Cunningham Diagnoses Hyperkalemia E87.5 CHF (congestive heart failure) I50.9 Acute respiratory failure J96.00 Non-ST elevation PR (NSTEMI) I21.4 Diabetes mellitus, type II E11.9 CAD (coronary artery disease) I25.10 Essential hypertension I10
[2021-08-05 15:34] LABS: Creatine Phosphokinase 227 U/L (39-308); Thyroid Stimulating Hormone 1.71 uIU/mL (0.27-4.20)
[2021-08-05] MEDS: FUROsemide 10 mg/mL SDV 10mL 100 MG IVP (16:03)
[2021-08-05] MEDS: metOLazone 5 MG Tablet 10 MG PO (16:03)
[2021-08-05] MEDS: famotidine 20 mg/2 mL INJ IVP (16:03)
[2021-08-05 16:24] LABS: Glucose Point of Care 190 mg/dL (70-110)
--- NOTE | 2021-08-05 16:42 | ECG_ITS ---
[facility] Test Date: 2021-08-05 Pat Name: Luis Alfredo Thompson Department: Room: [facility] Gender: Male [employer]inary Internship: : 1955 Requested By: Brian Manzo Order Number: [id number] Reading MD: Yanci Somers M.D. Measurements Intervals [place] Rate: 92 P: 2 WY: 181 QRS: -24 QRSD: 129 T: 85 QT: 350 QTc: 433 Interpretive Statements SINUS RHYTHM WITH OCCASIONAL VENTRICULAR PREMATURE COMPLEXES BORDERLINE LEFT AXIS DEVIATION [QRS AXIS < -20] MODERATE INTRAVENTRICULAR CONDUCTION DELAY [110+ ms QRS DURATION] NONSPECIFIC ST & T-WAVE ABNORMALITY Compared to ECG 08/05/2021 11:17:08 Ventricular premature complex(es) now present T-wave abnormality now present Electronically Signed On 08-06-2021 0:16:02 [employer] by Yanci Somers M.D. [id number]
[2021-08-05 17:20] LABS: Anion Gap 22.8 (5-19); Blood Urea Nitrogen 47 mg/dL (8-23); Calcium 8.3 mg/dL (8.5-10.5); Carbon Dioxide 17 mmol/L (22-29); Chloride 101 mmol/L (98-107); Glomerular Filtration Rate 20.2 mL/min (90-130); Glucose 164 mg/dL (65-115); Osmolality Calculated 298 mOsm/kg (285-295); Potassium 4.8 mmol/L (3.5-5.1); Sodium 136 mmol/L (136-145)
[2021-08-05 17:28] LABS: Troponin 5 6HR 3104 ng/L (0-15)
[2021-08-05 17:29] LABS: Troponin 5 6HR Delta 67 ng/L (0-12)
[2021-08-05 17:33] LABS: Creatinine Urine, Random 102 mg/dL (39-259)
[2021-08-05 17:34] LABS: Urine Random Sodium 39 mmol/L
[2021-08-05 17:59] LABS: Add Urine Microscopic? YES; Bilirubin Urine Neg (Negative); Blood Urine Neg (Negative); Glucose Urine UA 2+ (Normal); Ketones Urine Negative (Negative); Leukocyte Esterase Urine Negative (Negative); Nitrate Urine Negative (Negative); Protein Urine 3+ (Negative); Urine Appearance Clear (CLEAR); Urine Color Yellow (Yellow); Urobilinogen Urine Norm (Negative); WBC Urine 0-4 /hpf (0-5); pH Urine 5 (5-7)
[2021-08-05 18:00] LABS: Add Urine Culture? No; Amorphous Sediment Urine TRACE /hpf
[2021-08-05] MEDS: heparin drip 25,000 UNIT/500 ML PREMIX 19.18 UNIT IV (18:31)
[2021-08-05] MEDS: prazosin 1 mg Capsule PO (19:26)
[2021-08-05] MEDS: ranolazine (12HR) 500 mg Tablet PO (19:26)
[2021-08-05 20:41] LABS: Glucose Point of Care 120 mg/dL (70-110)
[2021-08-05 21:56] LABS: Glucose Point of Care 114 mg/dL (70-110)
[2021-08-06] VITALS (45 sets, daily range): BP systolic 127–166; BP diastolic 54–73; PULSE 68–92; RESP 12–22; TEMP 36.6–36.8; O2SAT 90–100
[2021-08-06 01:16] LABS: Partial Thromboplastin Time 72.8 SECONDS (23.9-36.7)
[2021-08-06] MEDS: clopidogrel 75 mg Tablet PO (05:37)
[2021-08-06] MEDS: aspirin 81 mg EC Tablet PO (05:37)
[2021-08-06 06:47] LABS: Basophils % 0.4 %; Eosinophils # 0.1 10^3/uL (0.0-0.8); Eosinophils % 0.8 %; Hematocrit 32.1 % (42.0-52.0); Hemoglobin 10.1 g/dL (11.7-16.6); Lymphocytes # 1.3 10^3/uL (0.8-4.8); Lymphocytes % 13.9 %; Mean Corpuscular HGB Conc 31.5 g/dL (30.0-36.0); Mean Corpuscular Hemoglobin 29.9 pg (28.0-34.0); Mean Platelet Volume 10.1 fL (7.4-10.4); Monocytes % 9.8 %; Neutrophils % 74.6 %; Nucleated Red Blood Cells % 0 %; Platelet Count 380 10^3/cmm (130-400); Red Blood Count 3.38 10^6/uL (4.1-5.3); Red Cell Distribution Width 13.8 % (12.1-15.1); White Blood Count 9.7 10^3/uL (4.0-10.0)
[2021-08-06 06:57] LABS: Partial Thromboplastin Time 69.3 SECONDS (23.9-36.7)
[2021-08-06 07:00] LABS: Alanine Aminotransferase 11 U/L (0-41); Albumin Level 2.8 g/dL (3.5-5.2); Alkaline Phosphatase 79 IU/L (40-130); Anion Gap 19.4 (5-19); Aspartate Amino Transferase 11 U/L (0-40); Blood Urea Nitrogen 47 mg/dL (8-23); Carbon Dioxide 19 mmol/L (22-29); Chloride 102 mmol/L (98-107); Globulin 3.1 g/dL (1.3-4.6); Glomerular Filtration Rate 20.2 mL/min (90-130); Glucose 120 mg/dL (65-115); Magnesium 2.2 mg/dL (1.7-2.3); Osmolality Calculated 295 mOsm/kg (285-295); Potassium 4.4 mmol/L (3.5-5.1); Sodium 136 mmol/L (136-145); Total Bilirubin 0.2 mg/dL (0.15-1.2); Total Protein 5.9 g/dL (6.6-8.7)
[2021-08-06 07:28] LABS: Glucose Point of Care 148 mg/dL (70-110)
[2021-08-06] MEDS: ranolazine (12HR) 500 mg Tablet PO ×2 (08:12→17:47)
[2021-08-06] MEDS: atorvastatin 40 mg Tablet 80 MG PO (08:12)
[2021-08-06] MEDS: insulin lispro 100 unit/1 mL SUBCUT ×2 (08:13→17:47)
[2021-08-06] MEDS: metOLazone 5 MG Tablet 10 MG PO (08:13)
[2021-08-06] MEDS: prazosin 1 mg Capsule PO ×2 (08:15→17:47)
--- NOTE | 2021-08-06 09:19 | PM.PN ---
Subjective Subjective: Interval history: Patient's is doing better. On Bipap. Yesterday received Lasix and has good urine output with about 2 L negative balance. Creatinine has improved Vitals/I&O/Wt Last Vital Signs Temp 98.2 F 08/06/21 04:06 Pulse 82 08/06/21 09:13 Resp 19 H 08/06/21 06:04 BP 154/64 08/06/21 06:04 Pulse Ox 98 08/06/21 09:13 08/05/21 08/06/21 08/06/21 22:59 06:59 14:59 Intake Total 120 / 120 Output Total 1875 / 1875 550 / 2425 Balance -1875 / -1875 -430 / -2305 Weight last 48 hrs Weight 175 lb 3.2 oz Weight 151 lb Physical Exam Narrative: EXAM NARRATIVE: GENERAL: Patient is alert, on BiPAP HEENT: No cyanosis. No icterus. No pallor. [] HEART: Regular S1 and S2. No murmur, rub or gallop. [] LUNGS: Has crackles ABDOMEN: Soft CENTRAL NERVOUS SYSTEM: Grossly nonfocal. [] EXTREMITIES: Lower extremities with 2+ pitting edema Urinary Catheter Management^: Feng: Cath Placed During This Visit: yes Reason for Continuing Indwelling Catheter: Accurate Measurement of Urinary Output in Critically Ill Patients Urinary Catheter Date of Insertion: 08/05/21 Urinary Catheter Time of Insertion: 16:10 Data : 08/06/21 06:30 08/06/21 06:30 Micro: Microbiology 08/05/21 11:27 Blood Culture - Preliminary Blood SPECIMEN COLLECTED 08/05/21 11:27 Blood Culture - Preliminary Blood SPECIMEN COLLECTED A&P Assessment and plan (1) Hyperkalemia: Status: Acute (2) CHF (congestive heart failure): Status: Acute (3) Acute respiratory failure: Status: Acute (4) Non-ST elevation IN (NSTEMI): Status: Acute (5) Diabetes mellitus, type II: Status: Acute (6) CAD (coronary artery disease): Status: Acute (7) Essential hypertension: Status: Chronic Patient has significant respiratory distress and congestive heart failure. He is volume overloaded. Nephrology on board. IV Lasix has improved his urine output and creatinine is showing improvement as well. Edema is better than yesterday His troponin is significantly elevated. Echocardiogram is revealing new wall motion abnormality with EF drop. Will treat as non-ST elevation IN Continue IV heparin. Continue aspirin and Plavix. Troponins downtrending Based on his clinical progress, we can discuss further ischemic work-up. However regional wall motion abnormality is in the anterolateral wall, likely left circumflex territory that was ischemic or could now be completely occluded. It was diffusely diseased vessel which did not appear to be revascularizable in the past. Thank you for involving us with care of this patient. We will continue to follow. Please call with questions Attestations Medical Necessity Statement*: Care expected to cross 2 midnights. Coding Level of Care Code Acute Resource Efficiency Manager for g Fwd Diagnoses Hyperkalemia E87.5 CHF (congestive heart failure) I50.9 Acute respiratory failure J96.00 Non-ST elevation IN (NSTEMI) I21.4 Diabetes mellitus, type II E11.9 CAD (coronary artery disease) I25.10 Essential hypertension I10
--- NOTE | 2021-08-06 09:46 | PC.CHAP ---
Pastoral Care Encounter/Spiritual Assessment Type of Contact [] Declined gameplay programmer visit [] Patient/Family/Request visit [] Outpatient visit [] Follow-up visit [] Physician referral [] Code/Alert [x] Routine visit [] Staff referral [] Actively dying [] Patient sleeping [x] Family support [] [] Out of room [] Palliative care [] [] Receiving care in room [] Pre-surgical visit [] Trauma [] Long length of stay [x] ICU visit [x] Other: icu patient.. went home for two days returned... spoke to .. prayed Relational/Emotional Strength [] Patient feels connected with others/family/visitors/staff [] Distress [] Loneliness/isolation [] Abandonment Spirituality of Patient [] Person of Ileana [] Attends Gnosticist of their Ileana [] Believes in Prayer [] Reads Bible or Latter Day materials [] There are Spiritual issues to be addressed Mechanical Facilities Technician Interventions [x] Prayer [] Active listening [] Non-anxious presence [] Spiritual/emotional support [] Crisis/trauma care [] Spiritual counseling [] Bereavement support [] Provided bereavement packet [] Provided Bible/devotional materials [] Provided toy/stuffed animal, coloring book to patient or family member [] Provided Communion [] Anointing/[place] [] Salvation [x] Completed spiritual assessment [] Other: Impact on Illness or Injury [] Angry [] Fearful [] Anxious [] Often cries [] Exhaustion [] Unable to work [] Unable to attend samaritan [] Unable to walk/stand [] Unable to read [] Unable to drive [] Unable to eat/drink [] Unable to sleep [] Unable to be with family [] Patient intubated [] Other: Summary Time spent with patient
[2021-08-06] MEDS: magnesium hydroxide 30 mL UDC PO (10:34)
[2021-08-06] MEDS: docusate sodium 100 mg Capsule PO ×2 (10:34→17:47)
[2021-08-06] MEDS: FUROsemide 10 mg/mL SDV 10mL 100 MG IVP (10:34)
--- NOTE | 2021-08-06 11:19 | PM.PN ---
Subjective Subjective: Interval history: Robust urine output in response to iv Lasix and Metolazone. No uremic Sx. On Bipap but comofrtable when coming off. No uremic sx. Global edema appears subjectively a little better. Vitals/I&O/Wt Last Vital Signs Temp 98.2 F 08/06/21 04:06 Pulse 78 08/06/21 11:13 Resp 19 H 08/06/21 06:04 BP 154/64 08/06/21 06:04 Pulse Ox 97 08/06/21 11:13 08/05/21 08/06/21 08/06/21 22:59 06:59 14:59 Intake Total 120 / 120 Output Total 1875 / 1875 550 / 2425 Balance -1875 / -1875 -430 / -2305 Weight last 48 hrs Weight 79.469 kg Weight 68.492 kg Physical Exam Narrative: EXAM NARRATIVE: Constitutional: Awake, comfortable HEENT: Wet mucosa, elevated jvp, non icteric Lungs: Bilaterally clear without discernible wheeze, rales in all lung zones CVS: S1 S2, no murmurs Abdo: Firm, quiet BS Ext 4: 2-3+ edema, peripheral perfusion with no cyanosis Neurological: Grossly non-focal Urinary Catheter Management^: Feng: Cath Placed During This Visit: yes Reason for Continuing Indwelling Catheter: Accurate Measurement of Urinary Output in Critically Ill Patients Urinary Catheter Date of Insertion: 08/05/21 Urinary Catheter Time of Insertion: 16:10 Data : 08/06/21 06:30 08/06/21 06:30 Micro: Microbiology 08/05/21 11:27 Blood Culture - Preliminary Blood SPECIMEN COLLECTED 08/05/21 11:27 Blood Culture - Preliminary Blood SPECIMEN COLLECTED A&P Additional A&P Information 1. Acute renal failure. Is likely that he has contrast nephropathy in combination with cardiorenal syndrome. I will give him Lasix 100 mg IV push with some metolazone, hopefully this will be effective in treating the cardiorenal syndrome aspect of his acute kidney injury, if unsuccessful, it is likely he will require hemodialysis. repeat iv Lasix and metolazone Strict I's and O's Dose medication for GFR less than 15 Avoid usual nephrotoxic agents 2. Chemistry Well balanced with mild acidosis 3. Status post recent coronary intervention Management per cardiology, remains on aspirin and Plavix. Thank for consultation, as always it is a pleasure to follow these patients with you Dusty Jason MD Nephrology [phone] Patient seen and examined via telemedicine, with the assistance of the bedside RN > 25 min spent in evaluation and mgmt of patient Attestations Medical Necessity Statement*: Eval for MARCELO Coding Level of Care Code Acute Program Project Manager for Hong Cunningham
--- NOTE | 2021-08-06 11:21 | P.PN_ITS ---
Subjective Subjective: Interval history: The patient is doing better today. Still on BiPAP. Reports improved shortness of breath and discomfort. No chest pain. No nausea or vomiting. No fever or chills. Reports being hungry. Medications: Reviewed: Yes Medication Review Details: Generic Name Dose Route Start Last Admin Trade Name Freq PRN Reason Stop Dose Admin Aspirin 81 mg 08/06/21 06:00 08/06/21 05:37 Aspirin 81 Mg Ec Tablet PO 81 mg QAM SUNSHINE Administration Atorvastatin Calci um 80 mg 08/06/21 09:00 08/06/21 08:12 Atorvastatin 40 Mg Tablet PO 80 mg DAILY SUNSHINE Administration Clopidogrel Bisulf ate 75 mg 08/06/21 06:00 08/06/21 05:37 Clopidogrel 75 M g Tablet PO 75 mg QAM SUNSHINE Administration Docusate Sodium 100 mg 08/06/21 09:00 08/06/21 10:34 Docusate Sodium 100 Mg Capsule PO 100 mg BID SUNSHINE Administration Famotidine 20 mg 08/05/21 13:30 08/05/21 16:03 Famotidine 20 Mg /2 Ml Inj IVP 20 mg Q24H SUNSHINE Administration Nitroglycerin/Dext ellis 50 mg in 250 mls @ 0 mls/hr 08/05/21 11:15 08/05/21 11:[address] ip IV 10 mcg/min .Q0M SUNSHINE 3 mls/hr Administration Protocol Per Protocol Heparin Sodium/Sod ium Chloride 25,000 unit in 50 0 mls @ 0 mls/hr 08/05/21 14:47 08/05/21 18:31 Heparin Drip IV 14 unit/kg/hr .Q0M SUNSHINE 19.18 mls/hr Administration Protocol Per Protocol Insulin Human Lisp ro 0 unit 08/05/21 18:00 08/06/21 08:13 Insulin Lispro 1 00 Unit/1 Ml SUBCUT 4 unit WM&BEDTIME SUNSHINE Administration Protocol Magnesium Hydroxid e 30 ml 08/06/21 08:52 08/06/21 10:34 Magnesium Hydrox danielle 30 Ml Udc PO 30 ml DAILY PRN Administration CONSTIPATION Metolazone 10 mg 08/05/21 14:35 08/06/21 08:13 Metolazone 5 Mg Tablet PO 10 mg DAILY SUNSHINE Administration Prazosin HCl 1 mg 08/05/21 18:00 08/06/21 08:15 Prazosin 1 Mg Ca psule PO 1 mg BID SUNSHINE Administration Ranolazine 500 mg 08/05/21 18:00 08/06/21 08:12 Ranolazine (12hr ) 500 Mg Tablet PO 500 mg BID SUNSHINE Administration Vitals/I&O/Wt Last Vital Signs Temp 98.2 F 08/06/21 04:06 Pulse 78 08/06/21 11:13 Resp 19 H 08/06/21 06:04 BP 154/64 08/06/21 06:04 Pulse Ox 97 08/06/21 11:13 08/05/21 08/06/21 08/06/21 22:59 06:59 14:59 Intake Total 120 / 120 Output Total 1875 / 1875 550 / 2425 Balance -1875 / -1875 -430 / -2305 Weight last 48 hrs Weight 79.469 kg Weight 68.492 kg Physical Exam Narrative: EXAM NARRATIVE: The patient is awake, alert, oriented x4. Currently no acute distress. Responses are adequate. Skin is warm and dry. Supple neck. No JVD Lungs decreased breath sounds and bibasilar crackles, improved since yesterday. No respiratory distress. Heart S1, S2, regular Abdomen is soft, nontender, bowel sounds are present Extremities severe increased bilateral pedal edema, improved. No cyanosis or calf tenderness bilaterally. Neuro examination is nonfocal. Urinary Catheter Management^: Feng: Cath Placed During This Visit: yes Reason for Continuing Indwelling Catheter: Accurate Measurement of Urinary Output in Critically Ill Patients Urinary Catheter Date of Insertion: 08/05/21 Urinary Catheter Time of Insertion: 16:10 Data : 08/06/21 06:30 08/06/21 06:30 Other Labs: Laboratory Results WBC 9.7 10^3/uL (4.0-10.0) 08/06/21 06:30 RBC 3.38 10^6/uL (4.1-5.3) L 08/06/21 06:30 Hgb 10.1 g/dL (11.7-16.6) L 08/06/21 06:30 Hct 32.1 % (42.0-52.0) L 08/06/21 06:30 MCV 95.0 fl (80-94) H 08/06/21 06:30 MCH 29.9 pg (28.0-34.0) 08/06/21 06:30 MCHC 31.5 g/dL (30.0-36.0) 08/06/21 06:30 RDW 13.8 % (12.1-15.1) 08/06/21 06:30 Plt Count 380 10^3/cmm (130-400) 08/06/21 06:30 MPV 10.1 fL (7.4-10.4) 08/06/21 06:30 Neut % (Auto) 74.6 % 08/06/21 06:30 Lymph % (Auto) 13.9 % 08/06/21 06:30 [place] % (Auto) 9.8 % 08/06/21 06:30 Eos % (Auto) 0.8 % 08/06/21 06:30 Baso % (Auto) 0.4 % 08/06/21 06:30 Neut # (Auto) 7.20 10^3/uL (1.8-7.7) 08/06/21 06:30 Lymph # (Auto) 1.3 10^3/uL (0.8-4.8) 08/06/21 06:30 [place] # (Auto) 1.0 10^3/uL (0.2-0.9) H 08/06/21 06:30 Eos # (Auto) 0.1 10^3/uL (0.0-0.8) 08/06/21 06:30 Baso # (Auto) 0.0 10^3/uL (0.0-0.1) 08/06/21 06:30 Nucleated RBC % (auto) 0 % 08/06/21 06:30 Nucleated RBCs # 0.0 /100WBC 08/06/21 06:30 APTT 69.3 SECONDS (23.9-36.7) H 08/06/21 06:30 Specimen Type Arterial 08/05/21 10:43 Sample Site Brachial, left 08/05/21 10:43 ABG pH 7.21 (7.35-7.45) L 08/05/21 10:43 ABG pCO2 49.7 mmHg (35-45) H 08/05/21 10:43 ABG pO2 82.9 mmHg (80.0-100.0) 08/05/21 10:43 ABG HCO3 20.0 mmol/L (22-26) L 08/05/21 10:43 ABG O2 Saturation 93.5 08/05/21 10:43 ABG Base Excess -7.7 mmol/L (-2.0-2.0) L 08/05/21 10:43 Brian Test N/a 08/05/21 10:43 A-a O2 Gradient 0.4 mmHg (5-10) L 08/05/21 10:43 Hematocrit 34.2 % (42-52) L 08/05/21 10:43 Hgb O2 Saturation 91.8 % (95-100) L 08/05/21 10:43 Carboxyhemoglobin 0.7 %THgb (0.4-20.1) 08/05/21 10:43 Methemoglobin 1.1 % (0.4-1.5) 08/05/21 10:43 Total Hemoglobin 11.2 g/dL (14-18) L 08/05/21 10:43 Sodium 134.0 mmol/L (131-143) 08/05/21 10:43 Potassium 5.5 mmol/L (3.5-5.0) H 08/05/21 10:43 Glucose 356.0 mg/dL (70-115) H 08/05/21 10:43 Ionized Calcium 1.1 mmol/L (1.1-1.4) 08/05/21 10:43 O2 Delivery Device Simple mask 08/05/21 10:43 O2 Liters/Min 8.0 % 08/05/21 10:43 Authors Motivational ID Ed 08/05/21 10:43 Sodium 136 mmol/L (136-145) 08/06/21 06:30 Potassium 4.4 mmol/L (3.5-5.1) 08/06/21 06:30 Chloride 102 mmol/L (98-107) 08/06/21 06:30 Carbon Dioxide 19 mmol/L (22-29) L 08/06/21 06:30 Anion Gap 19.4 (5-19) H 08/06/21 06:30 BUN 47 mg/dL (8-23) H 08/06/21 06:30 Creatinine 3.1 mg/dL (0.7-1.2) H 08/06/21 06:30 GFR Calculation 20.2 mL/min (90-130) L 08/06/21 06:30 Glucose 120 mg/dL (65-115) H 08/06/21 06:30 POC Glucose 148 mg/dL (70-110) H 08/06/21 07:26 Calculated Osmolality 295 mOsm/kg (285-295) 08/06/21 06:30 Lactic Acid 1.4 mmol/L (0.5-2.2) 08/05/21 11:27 Calcium 8.0 mg/dL (8.5-10.5) L 08/06/21 06:30 Magnesium 2.2 mg/dL (1.7-2.3) 08/06/21 06:30 Total Bilirubin 0.2 mg/dL (0.15-1.2) 08/06/21 06:30 AST 11 U/L (0-40) 08/06/21 06:30 ALT 11 U/L (0-41) 08/06/21 06:30 Alkaline Phosphatase 79 IU/L (40-130) 08/06/21 06:30 Creatine Kinase 227 U/L (39-308) 08/05/21 12:55 Troponin T Baseline 3037 ng/L (0-15) H* 08/05/21 10:30 Troponin T 120 Minute 2872 ng/L (0-15) H 08/05/21 12:55 Delta Troponin T -165 ABS# (0-10) L 08/05/21 12:55 Troponin T Hi Sens 6Hr 3104 ng/L (0-15) H 08/05/21 16:30 Troponin T Hi Sens 6Hr Delta 67 ng/L (0-12) H* 08/05/21 16:30 Total Protein 5.9 g/dL (6.6-8.7) L 08/06/21 06:30 Albumin 2.8 g/dL (3.5-5.2) L 08/06/21 06:30 Globulin 3.1 g/dL (1.3-4.6) 08/06/21 06:30 TSH 1.71 uIU/mL (0.27-4.20) 08/05/21 12:55 Urine Color Yellow (Yellow) 08/05/21 16:15 Urine Appearance Clear (CLEAR) 08/05/21 16:15 Urine pH 5 (5-7) 08/05/21 16:15 Ur Specific [place] 1.020 (1.005-1.030) 08/05/21 16:15 Urine Protein 3+ (Negative) H 08/05/21 16:15 Urine Glucose (UA) 2+ (Normal) H 08/05/21 16:15 Urine Ketones Negative (Negative) 08/05/21 16:15 Urine Blood Neg (Negative) 08/05/21 16:15 Urine Nitrate Negative (Negative) 08/05/21 16:15 Urine Bilirubin Neg (Negative) 08/05/21 16:15 Urine Urobilinogen Norm mg/dL (Negative) 08/05/21 16:15 Ur Leukocyte Esterase Negative (Negative) 08/05/21 16:15 Urine RBC None /hpf (0-2) 08/05/21 16:15 Urine WBC 0-4 /hpf (0-5) H 08/05/21 16:15 Ur Squamous Epith Cells None /hpf (0-5) 08/05/21 16:15 Amorphous Sediment Trace /hpf 08/05/21 16:15 Urine Bacteria None /hpf (NONE) 08/05/21 16:15 Ur Random Sodium 39 mmol/L 08/05/21 16:15 Urine Creatinine 102 mg/dL (39-259) 08/05/21 16:15 Impressions Chest X-Ray 08/05/21 10:41 Impression: Moderate congestive heart failure. Micro: Microbiology 08/05/21 11:27 Blood Culture - Preliminary Blood SPECIMEN COLLECTED 08/05/21 11:27 Blood Culture - Preliminary Blood SPECIMEN COLLECTED A&P Assessment and plan (1) Acute respiratory failure: Status: Acute (2) CHF (congestive heart failure): Status: Acute (3) Non-ST elevation [place] (NSTEMI): Status: Acute (4) Renal failure (ARF), acute on chronic: Status: Acute (5) Hyperkalemia: Status: Acute (6) Essential hypertension: Status: Chronic (7) Diabetes mellitus, type II: Status: Acute (8) Anemia, iron deficiency: Status: Acute Additional A&P Information 66-year-old male being readmitted after discharge yesterday. He is presenting with acute respiratory failure probably secondary to congestive heart failure/pulmonary edema related to non-ST elevation [place] and acute on chronic kidney failure with associated volume overload. Acute respiratory failure. Stabilized with BiPAP. Currently doing better. Continue current management. Congestive heart failure acute exacerbation. Echo is ordered and pending. Was seen and evaluated by Dr. Israel. We appreciate his input. We will continue management per his recommendations. It seems that diuresis was effective. Non-ST elevation KS. No chest pain. Continue current management. Acute on chronic kidney injury. Recent use of contrast for cardiac cathet erization and possible contrast-induced nephropathy. Appreciate dr Jason's input. We will continue management per his recommendations Hyperkalemia. Resolved. Continue monitoring. Uncontrolled hypertension, hypertensive urgency. Improved control continue nitroglycerin drip. Anemia. Stable. Will monitor. Will resume iron replacement therapy after stabilization. DVT prophylaxis. He will be on heparin drip. CODE STATUS. The patient and his want him to be full code. The plan of care was discussed today in details with the patient and his . They verbalized understanding and agreement. They verbalized satisfaction with the conversation. Discussed with multidisciplinary team. Critical care time spent on this encounter is 35 minutes. Attestations Medical Necessity Statement*: Requires aggressive management in ICU for the above discussed problems. Coding Level of Care Code Acute Pelletizer Operator for Hong Cunningham Diagnoses Acute respiratory failure J96.00 CHF (congestive heart failure) I50.9 Non-ST elevation [place] (NSTEMI) I21.4 Renal failure (ARF), acute on chronic N17.9; N18.9 Hyperkalemia E87.5 Essential hypertension I10 Diabetes mellitus, type II E11.9 Anemia, iron deficiency D50.9
[2021-08-06 12:28] LABS: Partial Thromboplastin Time 40.9 SECONDS (23.9-36.7)
[2021-08-06] MEDS: famotidine 20 mg/2 mL INJ IVP (14:41)
[2021-08-06] MEDS: pantoprazole DR 40 mg Tablet PO (14:42)
[2021-08-06 14:53] LABS: Glucose Point of Care 122 mg/dL (70-110)
[2021-08-06 17:22] LABS: Glucose Point of Care 162 mg/dL (70-110)
--- NOTE | 2021-08-06 18:40 | PC.NURSE ---
Patient received from ICU via wheelchair. Patient able to ambulate to [facility] with standby assist. Patient currently has heparin at 26ml/hr and Nitroglycerin 10ml/hr. Patient currently denies chest pain. No distress observed.
[2021-08-06] MEDS: heparin drip 25,000 UNIT/500 ML PREMIX 26 UNIT IV (19:14)
[2021-08-06] MEDS: ferrous sulfate EC 325 mg Tablet PO (21:23)
[2021-08-06 21:28] LABS: Glucose Point of Care 138 mg/dL (70-110)
[2021-08-06 23:14] LABS: Partial Thromboplastin Time 117.3 SECONDS (23.9-36.7)
--- NOTE | 2021-08-06 23:47 | PC.NURSE ---
Current PTT is 117.3. Decreased heparin drip to 21ml/hr. Verified with RAUDEL Herman.
[2021-08-07] VITALS (23 sets, daily range): BP systolic 134–184; BP diastolic 54–80; PULSE 68–99; RESP 15–24; TEMP 36.6; O2SAT 92–99
[2021-08-07 01:26] LABS: ABG PCO2 39.9 mmHg (35-45); ABG PH Result 7.31 (7.35-7.45); Alveolar-Arterial Oxygen Gradi 23.9 mmHg (5-10); Arterial Blood Gas Hematocrit 33.1 % (42-52); Blood Gas Operator Identificat ED; Blood Gas Sample Site Brachial, left; Blood Gas Sample Type Arterial; Carboxyhemoglobin 0.5 %THgb (0.4-20.1); HCO3 ABG 19.9 mmol/L (22-26); HGB O2 Sat 94.7 % (95-100); Ionized Calcium Level - ABG 1.2 mmol/L (1.1-1.4); Methemoglobin 0.3 % (0.4-1.5); Oxygen Device BIPAP; Oxygen Saturation ABG 95.5; PO2 ABG 81.9 mmHg (80.0-100.0); Potassium Level - ABG 5.3 mmol/L (3.5-5.0); Total Hemoglobin 10.8 g/dL (14-18)
--- NOTE | 2021-08-07 02:47 | PC.RESP ---
Mr Jay complained of change in the way the Bipap was performing. We took his circuit off that machine, B9, and placed on a Bipap that was recently cleaned and put back into service. This Bipap is a rental unit, marked LOANER. Pt reports no problems with newer machine and quickly returned to sleep.
[2021-08-07] MEDS: aspirin 81 mg EC Tablet PO (05:26)
[2021-08-07] MEDS: clopidogrel 75 mg Tablet PO (05:26)
[2021-08-07 06:34] LABS: Glucose Point of Care 191 mg/dL (70-110)
[2021-08-07 06:47] LABS: Basophils % 0.3 %; Eosinophils # 0.1 10^3/uL (0.0-0.8); Hematocrit 32.8 % (42.0-52.0); Hemoglobin 10.1 g/dL (11.7-16.6); Lymphocytes # 1.5 10^3/uL (0.8-4.8); Lymphocytes % 14.7 %; Mean Corpuscular HGB Conc 30.8 g/dL (30.0-36.0); Mean Corpuscular Hemoglobin 28.9 pg (28.0-34.0); Mean Corpuscular Volume 93.7 fl (80-94); Mean Platelet Volume 10.4 fL (7.4-10.4); Monocytes % 9.7 %; Neutrophils # 7.58 10^3/uL (1.8-7.7); Neutrophils % 73.8 %; Nucleated Red Blood Cells % 0 %; Platelet Count 439 10^3/cmm (130-400); Red Cell Distribution Width 13.6 % (12.1-15.1); White Blood Count 10.3 10^3/uL (4.0-10.0)
[2021-08-07 07:00] LABS: Anion Gap 17.4 (5-19); Blood Urea Nitrogen 48 mg/dL (8-23); Calcium 8.2 mg/dL (8.5-10.5); Carbon Dioxide 24 mmol/L (22-29); Chloride 100 mmol/L (98-107); Glomerular Filtration Rate 20.2 mL/min (90-130); Glucose 174 mg/dL (65-115); Potassium 4.4 mmol/L (3.5-5.1); Sodium 137 mmol/L (136-145)
[2021-08-07 07:03] LABS: Partial Thromboplastin Time 86.4 SECONDS (23.9-36.7)
[2021-08-07 07:04] LABS: Magnesium 2.3 mg/dL (1.7-2.3)
[2021-08-07] MEDS: insulin lispro 100 unit/1 mL SUBCUT ×3 (08:29→22:01)
[2021-08-07] MEDS: atorvastatin 40 mg Tablet 80 MG PO (08:29)
[2021-08-07] MEDS: ferrous sulfate EC 325 mg Tablet PO ×2 (08:30→16:59)
[2021-08-07] MEDS: ranolazine (12HR) 500 mg Tablet PO ×2 (08:30→16:58)
[2021-08-07] MEDS: prazosin 1 mg Capsule PO ×2 (08:30→16:57)
[2021-08-07] MEDS: metOLazone 5 MG Tablet 10 MG PO (08:30)
--- NOTE | 2021-08-07 08:52 | P.PN_ITS ---
Subjective Subjective: Interval history: Patient is feeling much better today. Has been transferred out of the ICU. Denies any chest pain. Vitals/I&O/Wt Last Vital Signs Temp 98 F 08/07/21 04:00 Pulse 79 08/07/21 08:02 Resp 21 H 08/07/21 08:02 BP 171/64 08/07/21 08:02 Pulse Ox 98 08/07/21 08:02 08/06/21 08/07/21 08/07/21 22:59 06:59 14:59 Intake Total 235.441 / 840.000 267 / 1107.000 306.30 / 306.30 Output Total 850 / 850 1100 / 1950 Balance -614.559 / -10.000 -833 / -843.000 306.30 / 306.30 Weight last 48 hrs Weight 175 lb Weight 175 lb 3.2 oz Weight 151 lb Physical Exam Narrative: EXAM NARRATIVE: GENERAL: Patient is alert, on BiPAP HEENT: No cyanosis. No icterus. No pallor. [] HEART: Regular S1 and S2. No murmur, rub or gallop. [] LUNGS: Has crackles ABDOMEN: Soft CENTRAL NERVOUS SYSTEM: Grossly nonfocal. [] EXTREMITIES: Lower extremities with 2+ pitting edema Urinary Catheter Management^: Feng: Cath Placed During This Visit: yes Reason for Continuing Indwelling Catheter: Acute Urinary Retention or Obstruction Urinary Catheter Date of Insertion: 08/05/21 Urinary Catheter Time of Insertion: 16:10 Data : 08/08/21 03:06 08/08/21 03:06 Micro: Microbiology 08/05/21 11:27 Blood Culture - Preliminary Blood NEGATIVE TO DATE 08/05/21 11:27 Blood Culture - Preliminary Blood NEGATIVE TO DATE A&P Assessment and plan (1) Hyperkalemia: Status: Acute (2) CHF (congestive heart failure): Status: Acute (3) Acute respiratory failure: Status: Acute (4) Non-ST elevation [place] (NSTEMI): Status: Acute (5) Diabetes mellitus, type II: Status: Acute (6) CAD (coronary artery disease): Status: Acute (7) Essential hypertension: Status: Chronic Patient had significant respiratory distress and congestive heart failure. He is volume overloaded. Nephrology on board. Diuresis has improved his creatinine and edema is better. Has good urine output. His troponin was significantly elevated. Echocardiogram revealing new wall motion abnormality with EF drop. Will treat as non-ST elevation [place]. After discussion with patient's and him, we had a shared decision of treating him medically at this time. He is chest pain-free, and with his significant renal dysfunction, repeat angiogram likely will put him in contrast-induced nephropathy with high likelihood of permanent dialysis. Stop nitro gtt Will add hydralazine 100mg TID. If BP elevated, increase metoprolol to 50mg BID Continue IV heparin in the hospital. Continue aspirin and Plavix. Patient's regional wall motion abnormality is in the anterolateral wall, likely left circumflex territory that was ischemic and could now be completely occluded. It was diffusely diseased vessel which did not appear to be r evascularizable in the past. Medical therapy Patient is chest pain free Thank you for involving us with care of this patient. We will continue to follow. Please call with questions Attestations Medical Necessity Statement*: Care expected to cross 2 midnights. Coding Level of Care Code Acute Supervisor Stitching Department for Hong Cunningham Diagnoses Hyperkalemia E87.5 CHF (congestive heart failure) I50.9 Acute respiratory failure J96.00 Non-ST elevation [place] (NSTEMI) I21.4 Diabetes mellitus, type II E11.9 CAD (coronary artery disease) I25.10 Essential hypertension I10
--- NOTE | 2021-08-07 09:46 | PM.PN ---
Subjective Subjective: Interval history: Mr. Thompson is doing better today. On BiPAP at night, on nasal cannula oxygen during the day. Good improvement in his urine output and good improvement in his overall anasarca. Urine output 1950 mL. Medications: Reviewed: Yes Medication Review Details: Generic Name Dose Route Start Last Admin Trade Name Freq PRN Reason Stop Dose Admin Aspirin 81 mg 08/06/21 06:00 08/06/21 05:37 Aspirin 81 Mg Ec Tablet PO 81 mg QAM SUNSHINE Administration Atorvastatin Calci um 80 mg 08/06/21 09:00 08/06/21 08:12 Atorvastatin 40 Mg Tablet PO 80 mg DAILY SUNSHINE Administration Clopidogrel Bisulf ate 75 mg 08/06/21 06:00 08/06/21 05:37 Clopidogrel 75 M g Tablet PO 75 mg QAM SUNSHINE Administration Docusate Sodium 100 mg 08/06/21 09:00 08/06/21 10:34 Docusate Sodium 100 Mg Capsule PO 100 mg BID SUNSHINE Administration Famotidine 20 mg 08/05/21 13:30 08/05/21 16:03 Famotidine 20 Mg /2 Ml Inj IVP 20 mg Q24H SUNSHINE Administration Nitroglycerin/Dext ellsi 50 mg in 250 mls @ 0 mls/hr 08/05/21 11:15 08/05/21 11:[address] ip IV 10 mcg/min .Q0M SUNSHINE 3 mls/hr Administration Protocol Per Protocol Heparin Sodium/Sod ium Chloride 25,000 unit in 50 0 mls @ 0 mls/hr 08/05/21 14:47 08/05/21 18:31 Heparin Drip IV 14 unit/kg/hr .Q0M SUNSHINE 19.18 mls/hr Administration Protocol Per Protocol Insulin Human Lisp ro 0 unit 08/05/21 18:00 08/06/21 08:13 Insulin Lispro 1 00 Unit/1 Ml SUBCUT 4 unit WM&BEDTIME SUNSHINE Administration Protocol Magnesium Hydroxid e 30 ml 08/06/21 08:52 08/06/21 10:34 Magnesium Hydrox danielle 30 Ml Udc PO 30 ml DAILY PRN Administration CONSTIPATION Metolazone 10 mg 08/05/21 14:35 08/06/21 08:13 Metolazone 5 Mg Tablet PO 10 mg DAILY SUNSHINE Administration Prazosin HCl 1 mg 08/05/21 18:00 08/06/21 08:15 Prazosin 1 Mg Ca psule PO 1 mg BID SUNSHINE Administration Ranolazine 500 mg 08/05/21 18:00 08/06/21 08:12 Ranolazine (12hr ) 500 Mg Tablet PO 500 mg BID SUNSHINE Administration Vitals/I&O/Wt Last Vital Signs Temp 98 F 08/07/21 04:00 Pulse 79 08/07/21 08:02 Resp 21 H 08/07/21 08:02 BP 171/64 08/07/21 08:02 Pulse Ox 98 08/07/21 08:02 08/06/21 08/07/21 08/07/21 22:59 06:59 14:59 Intake Total 235.441 / 840.000 267 / 1107.000 666.30 / 666.30 Output Total 850 / 850 1100 / 1950 Balance -614.559 / -10.000 -833 / -843.000 666.30 / 666.30 Weight last 48 hrs Weight 79.379 kg Weight 79.469 kg Weight 68.492 kg Physical Exam Narrative: EXAM NARRATIVE: Constitutional: Awake, comfortable HEENT: Wet mucosa, elevated jvp, non icteric Lungs: Bilaterally clear without discernible wheeze, rales in all lung zones CVS: S1 S2, no murmurs Abdo: Firm, quiet BS Ext 4: 2-3+ edema, peripheral perfusion with no cyanosis Neurological: Grossly non-focal Urinary Catheter Management^: Feng: Cath Placed During This Visit: yes Reason for Continuing Indwelling Catheter: Acute Urinary Retention or Obstruction Urinary Catheter Date of Insertion: 08/05/21 Urinary Catheter Time of Insertion: 16:10 Data : 08/07/21 06:25 08/07/21 06:25 Micro: Microbiology 08/05/21 11:27 Blood Culture - Preliminary Blood NEGATIVE TO DATE 08/05/21 11:27 Blood Culture - Preliminary Blood NEGATIVE TO DATE A&P Additional A&P Information 1. Acute renal failure. Is likely that he has contrast nephropathy in combination with cardiorenal syndrome. Switch IV Lasix to oral Bumex, continue metolazone for the time being. This will be need to be monitored very closely i.e. in terms of chemistry and overdiuresis. Strict I's and O's Dose medication for GFR less than 15 Avoid usual nephrotoxic agents 2. Chemistry Well balanced with mild acidosis 3. Status post recent coronary intervention Management per cardiology, remains on aspirin and Plavix. Thank for consultation, as always it is a pleasure to follow these patients with you Dusty Jason MD Nephrology [phone] Patient seen and examined via telemedicine, with the assistance of the bedside RN > 25 min spent in evaluation and mgmt of patient Attestations Medical Necessity Statement*: Eval for MARCELO Coding Level of Care Code Acute Acute Care Certified Nursing Assistant for Hong Cunningham
[2021-08-07] MEDS: hyDRALAzine 50 mg Tablet 100 MG PO ×3 (10:10→21:02)
[2021-08-07] MEDS: bumetanide 1 mg Tablet 2 MG PO (10:10)
[2021-08-07 11:28] LABS: Glucose Point of Care 116 mg/dL (70-110)
[2021-08-07 13:32] LABS: Partial Thromboplastin Time 55.8 SECONDS (23.9-36.7)
--- NOTE | 2021-08-07 13:37 | P.PN_ITS ---
Subjective Subjective: Interval history: Patient reports feeling much better today. Denies chest pain. Shortness of breath is well controlled with small amount of supplemental oxygen. No diaphoresis. No fever or chills. No cough. Swelling is going down. Medications: Reviewed: Yes Medication Review Details: Generic Name Dose Route Start Last Admin Trade Name Eduardo PRN Reason Stop Dose Admin Aspirin 81 mg 08/06/21 06:00 08/07/21 05:26 Aspirin 81 Mg Ec Tablet PO 81 mg QAM SUNSHINE Administration Atorvastatin Calci um 80 mg 08/06/21 09:00 08/07/21 08:29 Atorvastatin 40 Mg Tablet PO 80 mg DAILY SUNSHINE Administration Bumetanide 2 mg 08/07/21 10:00 08/07/21 10:10 Bumetanide 1 Mg Tablet PO 2 mg DAILY SUNSHINE Administration Clopidogrel Bisulf ate 75 mg 08/06/21 06:00 08/07/21 05:26 Clopidogrel 75 M g Tablet PO 75 mg QAM SUNSHINE Administration Docusate Sodium 100 mg 08/06/21 09:00 08/07/21 08:31 Docusate Sodium 100 Mg Capsule PO Not Given BID [facility] Ferrous Sulfate 325 mg 08/06/21 19:12 08/07/21 08:30 Ferrous Sulfate Ec 325 Mg Tablet PO 325 mg BIDWM SUNSHINE Administration Hydralazine HCl 100 mg 08/07/21 09:00 08/07/21 10:10 Hydralazine 50 M g Tablet PO 100 mg TID SUNSHINE Administration Nitroglycerin/Dext ellis 50 mg in 250 mls @ 0 mls/hr 08/05/21 11:15 08/07/21 08:[address] ip IV 15 mcg/min .Q0M SUNSHINE 4.5 mls/hr Titration Protocol Per Protocol Heparin Sodium/Sod ium Chloride 25,000 unit in 50 0 mls @ 0 mls/hr 08/05/21 14:47 08/07/21 07:57 Heparin Drip IV 13.14 unit/kg/hr .Q0M SUNSHINE 18 mls/hr Titration Protocol Per Protocol Insulin Human Lisp ro 0 unit 08/05/21 18:00 08/07/21 08:29 Insulin Lispro 1 00 Unit/1 Ml SUBCUT 6 unit WM&BEDTIME SUNSHINE Administration Protocol Magnesium Hydroxid e 30 ml 08/06/21 08:52 08/06/21 10:34 Magnesium Hydrox danielle 30 Ml Udc PO 30 ml DAILY PRN Administration CONSTIPATION Metolazone 10 mg 08/05/21 14:35 08/07/21 08:30 Metolazone 5 Mg Tablet PO 10 mg DAILY SUNSHINE Administration Pantoprazole Sodiu m 40 mg 08/06/21 12:00 08/06/21 14:[address] 40 Mg Tablet PO 40 mg DAILY@12 SUNSHINE Administration Prazosin HCl 1 mg 08/05/21 18:00 08/07/21 08:30 Prazosin 1 Mg Ca psule PO 1 mg BID SUNSHINE Administration Ranolazine 500 mg 08/05/21 18:00 08/07/21 08:30 Ranolazine (12hr ) 500 Mg Tablet PO 500 mg BID SUNSHINE Administration Vitals/I&O/Wt Last Vital Signs Temp 98 F 08/07/21 04:00 Pulse 79 08/07/21 12:00 Resp 21 H 08/07/21 12:00 BP 145/58 08/07/21 12:00 Pulse Ox 96 08/07/21 12:00 08/06/21 08/07/21 08/07/21 22:59 06:59 14:59 Intake Total 235.441 / 840.000 267 / 1107.000 906.30 / 906.30 Output Total 850 / 850 1100 / 1950 950 / 950 Balance -614.559 / -10.000 -833 / -843.000 -43.70 / -43.70 Weight last 48 hrs Weight 79.379 kg Weight 79.469 kg Physical Exam Narrative: EXAM NARRATIVE: The patient is awake, alert, oriented x4. Currently no acute distress. Responses are adequate. Skin is warm and dry. Supple neck. No JVD Lungs decreased breath sounds and bibasilar crackles, improved since yesterday. No respiratory distress. Heart S1, S2, regular Abdomen is soft, nontender, bowel sounds are present Extremities severe increased bilateral pedal edema, improved. No cyanosis or calf tenderness bilaterally. Neuro examination is nonfocal. Urinary Catheter Management^: Feng: Cath Placed During This Visit: yes Reason for Continuing Indwelling Catheter: Acute Urinary Retention or Obstruction Urinary Catheter Date of Insertion: 08/05/21 Urinary Catheter Time of Insertion: 16:10 Data : 08/07/21 06:25 08/07/21 06:25 Micro: Microbiology 08/05/21 11:27 Blood Culture - Preliminary Blood NEGATIVE TO DATE 08/05/21 11:27 Blood Culture - Preliminary Blood NEGATIVE TO DATE A&P Assessment and plan (1) Acute respiratory failure: Status: Acute (2) CHF (congestive heart failure): Status: Acute (3) Non-ST elevation PR (NSTEMI): Status: Acute (4) Renal failure (ARF), acute on chronic: Status: Acute (5) Hyperkalemia: Status: Acute (6) Essential hypertension: Status: Chronic (7) Diabetes mellitus, type II: Status: Acute (8) Anemia, iron deficiency: Status: Acute Additional A&P Information 66-year-old male being readmitted after discharge yesterday. He is presenting with acute respiratory failure probably secondary to congestive heart failure/pulmonary edema related to non-ST elevation PR and acute on chronic kidney failure with associated volume overload. Acute respiratory failure. Stabilized and improved. Off BiPAP. Congestive heart failure acute exacerbation. Echo showed decreased EF please see the report.. Was seen and evaluated by Dr. Israel. We appreciate his input. We will continue conservative management per his recommendations. It seems that diuresis was effective. Non-ST elevation PR. No chest pain. Continue current conservative management. Continuing heparin drip until the discharge. Stopping nitroglycerin drip. Starting is a Sorbide and hydralazine as well as small dose of beta-felicitas. On dual antiplatelet therapy. Acute on chronic kidney injury. Recent use of contrast for cardiac catheterization and possible contrast-induced nephropathy. Appreciate dr Jason's input. We will continue management per his recommendations. Renal function is slowly improving currently Hyperkalemia. Resolved. Continue monitoring. Uncontrolled hypertension, hypertensive urgency. Improved control continue medication adjustments as above. Anemia. Stable. Will monitor. Resuming iron replacement therapy. DVT prophylaxis. He will be on heparin drip. CODE STATUS. The patient and his want him to be full code. The plan of care was discussed today in details with the patient and his . They verbalized understanding and agreement. They verbalized satisfaction with the conversation. Discussed with multidisciplinary team. Attestations Medical Necessity Statement*: Still requires 1 to 2 days for stabilization and finalization of discharge medications. Coding Level of Care Code Acute Lead Clinical Research Coordinator for [employer] Diagnoses Acute respiratory failure J96.00 CHF (congestive heart failure) I50.9 Non-ST elevation PR (NSTEMI) I21.4 Renal failure (ARF), acute on chronic N17.9; N18.9 Hyperkalemia E87.5 Essential hypertension I10 Diabetes mellitus, type II E11.9 Anemia, iron deficiency D50.9
[2021-08-07] MEDS: pantoprazole DR 40 mg Tablet PO (15:04)
[2021-08-07 16:43] LABS: Glucose Point of Care 283 mg/dL (70-110)
[2021-08-07] MEDS: docusate sodium 100 mg Capsule PO (16:57)
[2021-08-07] MEDS: isosorbide mononitrate ER 30 mg Tablet PO (16:58)
--- NOTE | 2021-08-07 18:22 | PC.NURSE ---
selvin,rt notified nurse that when she went to turn pt's o2 level down at approx 1600...he refused.rt stated pt's said to pt should we tell her? ...and then conversation transpired bt rt,pt and pt's regarding pt's thought of suicide recently,while he was at his home.rt states she will write detailed note regarding conversation.both rt and rn met with dr leon..and discussed the conversation.also discussed 's notable influencing behavior toward pt.this nurse observed pt looking to for answers with all questions directed to him ...such as do you need a stool softener? .dr leon does not want the suicide scale conducted in 's presence due to this..and asked staff to interview pt after departs for evening.will continue to monitor closely.neither pt or made any comments to rn regarding suicide through shift.
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
--- NOTE | 2021-08-07 18:41 | PC.NURSE ---
pt's bp remained elevated through day and hydralazine 100 mg tid started.bp did not respond...so dr hu ordered amlodipine.pt refused amlodipine..stating dr duarte took me off this earlier in the month due to it gave me gas .dr hu notified and he increased dose of metoprolol.
[2021-08-07] MEDS: metoprolol tartrate 50 mg Tablet PO (18:47)
[2021-08-07] MEDS: heparin drip 25,000 UNIT/500 ML PREMIX 18 UNIT IV (18:55)
[2021-08-07 20:15] LABS: Glucose Point of Care 144 mg/dL (70-110)
[2021-08-07] MEDS: heparin 5,000 unit/mL INJ 1 mL IV (22:00)
[2021-08-07] MEDS: temazepam 15 mg Capsule PO (22:28)
[2021-08-08] VITALS (17 sets, daily range): BP systolic 125–148; BP diastolic 48–65; PULSE 61–80; RESP 16–20; TEMP 36.2–36.8; O2SAT 90–98
--- NOTE | 2021-08-08 02:09 | PC.NURSE ---
Around 2100: Patient denies any suicidal ideations. Patient states that any comments made during the day that were of concern were not true and he has not had any thoughts of harming himself or others.
[2021-08-08 03:12] LABS: Basophils % 0.3 %; Eosinophils # 0.2 10^3/uL (0.0-0.8); Eosinophils % 1.7 %; Hematocrit 29.7 % (42.0-52.0); Hemoglobin 9.3 g/dL (11.7-16.6); Lymphocytes # 1.7 10^3/uL (0.8-4.8); Lymphocytes % 16.7 %; Mean Corpuscular HGB Conc 31.3 g/dL (30.0-36.0); Mean Corpuscular Hemoglobin 29.1 pg (28.0-34.0); Mean Corpuscular Volume 92.8 fl (80-94); Mean Platelet Volume 10.1 fL (7.4-10.4); Monocytes % 10.4 %; Neutrophils # 7.08 10^3/uL (1.8-7.7); Neutrophils % 70.5 %; Nucleated Red Blood Cells % 0 %; Platelet Count 369 10^3/cmm (130-400); Red Cell Distribution Width 13.2 % (12.1-15.1)
[2021-08-08 03:32] LABS: Alanine Aminotransferase 15 U/L (0-41); Albumin Level 2.9 g/dL (3.5-5.2); Alkaline Phosphatase 80 IU/L (40-130); Anion Gap 16.2 (5-19); Aspartate Amino Transferase 14 U/L (0-40); Blood Urea Nitrogen 49 mg/dL (8-23); Calcium 7.7 mg/dL (8.5-10.5); Carbon Dioxide 27 mmol/L (22-29); Chloride 102 mmol/L (98-107); Glomerular Filtration Rate 20.2 mL/min (90-130); Glucose 91 mg/dL (65-115); Magnesium 2.2 mg/dL (1.7-2.3); Osmolality Calculated 305 mOsm/kg (285-295); Potassium 4.2 mmol/L (3.5-5.1); Sodium 141 mmol/L (136-145); Total Bilirubin 0.2 mg/dL (0.15-1.2); Total Protein 5.9 g/dL (6.6-8.7)
[2021-08-08] MEDS: aspirin 81 mg EC Tablet PO (05:18)
[2021-08-08] MEDS: clopidogrel 75 mg Tablet PO (05:18)
[2021-08-08 06:21] LABS: Glucose Point of Care 180 mg/dL (70-110)
--- NOTE | 2021-08-08 07:53 | P.PN_ITS ---
Subjective Subjective: Interval history: Patient is overall doing better. On room air this morning. Blood pressure is much improved.Denies any chest pain. Vitals/I&O/Wt Last Vital Signs Temp 97.9 F 08/08/21 03:19 Pulse 64 08/08/21 06:00 Resp 17 08/08/21 03:19 BP 128/54 08/08/21 03:19 Pulse Ox 96 08/08/21 03:19 08/07/21 08/08/21 08/08/21 22:59 06:59 14:59 Intake Total 487.95 / 1510.50 Output Total 1000 / 1950 150 / 2100 Balance -512.05 / -439.50 -150 / -589.50 Weight last 48 hrs Weight 175 lb Physical Exam Narrative: EXAM NARRATIVE: GENERAL: Patient is alert, on BiPAP HEENT: No cyanosis. No icterus. No pallor. [] HEART: Regular S1 and S2. No murmur, rub or gallop. [] LUNGS: Has crackles ABDOMEN: Soft CENTRAL NERVOUS SYSTEM: Grossly nonfocal. [] EXTREMITIES: Lower extremities with 2+ pitting edema Urinary Catheter Management^: Feng: Cath Placed During This Visit: yes Reason for Continuing Indwelling Catheter: Accurate Measurement of Urinary Output in Critically Ill Patients Urinary Catheter Date of Insertion: 08/05/21 Urinary Catheter Time of Insertion: 16:10 Data : 08/08/21 03:06 08/08/21 03:06 A&P Assessment and plan (1) Hyperkalemia: Status: Acute (2) CHF (congestive heart failure): Status: Acute (3) Acute respiratory failure: Status: Acute (4) Non-ST elevation [place] (NSTEMI): Status: Acute (5) Diabetes mellitus, type II: Status: Acute (6) CAD (coronary artery disease): Status: Acute (7) Essential hypertension: Status: Chronic Patient had significant respiratory distress and congestive heart failure. He is volume overloaded. Nephrology on board. Diuresis has improved his creatinine and edema is better. Has good urine output. His troponin was significantly elevated. Echocardiogram revealing new wall motion abnormality with EF drop. Will treat as non-ST elevation [place]. After disc ussion with patient's and him, we had a shared decision of treating him medically at this time. He is chest pain-free, and with his significant renal dysfunction, repeat angiogram likely will put him in contrast-induced nephropathy with high likelihood of permanent dialysis. Continue Hydralazine 100 mg 3 times daily and metoprolol 50 mg twice daily. His blood pressure is improved this morning. Renal function is stable. Urine out put is good. Aspirin and Plavix. Continue heparin drip till patient is in the hospital. Patient's regional wall motion abnormality is in the anterolateral wall, likely left circumflex territory that was ischemic and could now be completely occluded. It was diffusely diseased vessel which did not appear to be revascularizable in the past. Medical therapy Patient is chest pain free Thank you for involving us with care of this patient. We will continue to fo llow. Please call with questions Attestations Medical Necessity Statement*: Care expected to cross 2 midnights. Coding Level of Care Code Acute Safety And Security Officer for Hong Cunningham Diagnoses Hyperkalemia E87.5 CHF (congestive heart failure) I50.9 Acute respiratory failure J96.00 Non-ST elevation [place] (NSTEMI) I21.4 Diabetes mellitus, type II E11.9 CAD (coronary artery disease) I25.10 Essential hypertension I10
[2021-08-08] MEDS: hyDRALAzine 50 mg Tablet 100 MG PO ×3 (08:21→19:27)
[2021-08-08] MEDS: ranolazine (12HR) 500 mg Tablet PO ×2 (08:21→17:04)
[2021-08-08] MEDS: bumetanide 1 mg Tablet 2 MG PO (08:21)
[2021-08-08] MEDS: ferrous sulfate EC 325 mg Tablet PO ×2 (08:22→17:04)
[2021-08-08] MEDS: metoprolol tartrate 50 mg Tablet PO ×2 (08:22→19:27)
[2021-08-08] MEDS: metOLazone 5 MG Tablet 10 MG PO (08:22)
[2021-08-08] MEDS: isosorbide mononitrate ER 30 mg Tablet PO ×2 (08:22→17:03)
[2021-08-08] MEDS: atorvastatin 40 mg Tablet 80 MG PO (08:22)
[2021-08-08] MEDS: docusate sodium 100 mg Capsule PO ×2 (08:22→17:04)
[2021-08-08] MEDS: prazosin 1 mg Capsule PO ×2 (08:22→17:04)
[2021-08-08] MEDS: insulin lispro 100 unit/1 mL SUBCUT ×4 (08:23→20:37)
--- NOTE | 2021-08-08 09:03 | PM.PN ---
Subjective Subjective: Interval history: Feels ok with no new issues. LE edema has improved nicely. Breathing comfortably. Medications: Reviewed: Yes Medication Review Details: Generic Name Dose Route Start Last Admin Trade Name Eduardo PRN Reason Stop Dose Admin Aspirin 81 mg 08/06/21 06:00 08/07/21 05:26 Aspirin 81 Mg Ec Tablet PO 81 mg QAM SUNSHINE Administration Atorvastatin Calci um 80 mg 08/06/21 09:00 08/07/21 08:29 Atorvastatin 40 Mg Tablet PO 80 mg DAILY SUNSHINE Administration Bumetanide 2 mg 08/07/21 10:00 08/07/21 10:10 Bumetanide 1 Mg Tablet PO 2 mg DAILY SUNSHINE Administration Clopidogrel Bisulf ate 75 mg 08/06/21 06:00 08/07/21 05:26 Clopidogrel 75 M g Tablet PO 75 mg QAM SUNSHINE Administration Docusate Sodium 100 mg 08/06/21 09:00 08/07/21 08:31 Docusate Sodium 100 Mg Capsule PO Not Given BID SUNSHINE Ferrous Sulfate 325 mg 08/06/21 19:12 08/07/21 08:30 Ferrous Sulfate Ec 325 Mg Tablet PO 325 mg BIDWM SUNSHINE Administration Hydralazine HCl 100 mg 08/07/21 09:00 08/07/21 10:10 Hydralazine 50 M g Tablet PO 100 mg TID SUNSHINE Administration Nitroglycerin/Dext ellis 50 mg in 250 mls @ 0 mls/hr 08/05/21 11:15 08/07/21 08:[address] ip IV 15 mcg/min .Q0M SUNSHINE 4.5 mls/hr Titration Protocol Per Protocol Heparin Sodium/Sod ium Chloride 25,000 unit in 50 0 mls @ 0 mls/hr 08/05/21 14:47 08/07/21 07:57 Heparin Drip IV 13.14 unit/kg/hr .Q0M SUNSHINE 18 mls/hr Titration Protocol Per Protocol Insulin Human Lisp ro 0 unit 08/05/21 18:00 08/07/21 08:29 Insulin Lispro 1 00 Unit/1 Ml SUBCUT 6 unit WM&BEDTIME SUNSHINE Administration Protocol Magnesium Hydroxid e 30 ml 08/06/21 08:52 08/06/21 10:34 Magnesium Hydrox danielle 30 Ml Udc PO 30 ml DAILY PRN Administration CONSTIPATION Metolazone 10 mg 08/05/21 14:35 08/07/21 08:30 Metolazone 5 Mg Tablet PO 10 mg DAILY SUNSHINE Administration Pantoprazole Sodiu m 40 mg 08/06/21 12:00 08/06/21 14:[address] 40 Mg Tablet PO 40 mg DAILY@12 SUNSHINE Administration Prazosin HCl 1 mg 08/05/21 18:00 08/07/21 08:30 Prazosin 1 Mg Ca psule PO 1 mg BID SUNSHINE Administration Ranolazine 500 mg 08/05/21 18:00 08/07/21 08:30 Ranolazine (12hr ) 500 Mg Tablet PO 500 mg BID SUNSHINE Administration Vitals/I&O/Wt Last Vital Signs Temp 97.9 F 08/08/21 03:19 Pulse 63 08/08/21 08:00 Resp 20 H 08/08/21 08:00 BP 144/58 08/08/21 08:00 Pulse Ox 90 08/08/21 08:00 08/07/21 08/08/21 08/08/21 22:59 06:59 14:59 Intake Total 487.95 / 1510.50 Output Total 1000 / 1950 900 / 2850 Balance -512.05 / -439.50 -900 / -1339.50 Weight last 48 hrs Weight 79.379 kg Physical Exam Narrative: EXAM NARRATIVE: Constitutional: Awake, comfortable HEENT: Wet mucosa, elevated jvp, non icteric Lungs: Bilaterally clear without discernible wheeze, rales in all lung zones CVS: S1 S2, no murmurs Abdo: Firm, quiet BS Ext 4: 2-3+ edema, peripheral perfusion with no cyanosis Neurological: Grossly non-focal Urinary Catheter Management^: Feng: Cath Placed During This Visit: yes Reason for Continuing Indwelling Catheter: Accurate Measurement of Urinary Output in Critically Ill Patients Urinary Catheter Date of Insertion: 08/05/21 Urinary Catheter Time of Insertion: 16:10 Data : 08/08/21 03:06 08/08/21 03:06 A&P Additional A&P Information 1. Acute renal failure. Is likely that he has contrast nephropathy in combination with cardiorenal syndrome. On combo diuretics; cont metolazone and bumex on dc; close monitoring of weight and close follow up with Dr Anaya Strict I's and O's Dose medication for GFR less than 15 Avoid usual nephrotoxic agents 2. Chemistry Well balanced; will add low dose potassium given diuretic combo 3. Status post recent coronary intervention Management per cardiology, remains on aspirin and Plavix. Acute renal issues have resolved, will follow peripherally at this time, thank you Dusty Jason MD Nephrology [phone] Patient seen and examined via telemedicine, with the assistance of the bedside RN > 25 min spent in evaluation and mgmt of patient Attestations Medical Necessity Statement*: Eval MARCELO Coding Level of Care Code Acute Sports Fitness And Wellness Director for Hong Cunningham
[2021-08-08 09:13] LABS: Partial Thromboplastin Time 50.2 SECONDS (23.9-36.7)
[2021-08-08] MEDS: potassium chloride ER 20 mEq Tablet PO (09:53)
--- NOTE | 2021-08-08 10:56 | P.PN_ITS ---
Subjective Subjective: Interval history: Seen today. Denies any complaints of shortness of breath or chest pain. He states he feels a lot better compared to when he first got here to the hospital. Patient is still on heparin drip. He still has lower extremity edema that he reports. Otherwise states he is doing better. He was smoking up until this hospital admission but says he will be quitting when he leaves. Vitals/I&O/Wt Last Vital Signs Temp 97.9 F 08/08/21 03:19 Pulse 63 08/08/21 08:00 Resp 20 H 08/08/21 08:00 BP 144/58 08/08/21 08:00 Pulse Ox 90 08/08/21 08:00 08/07/21 08/08/21 08/08/21 22:59 06:59 14:59 Intake Total 487.95 / 1510.50 498.333 / 498.333 Output Total 1000 / 1950 900 / 2850 Balance -512.05 / -439.50 -900 / -1339.50 498.333 / 498.333 Weight last 48 hrs Weight 79.379 kg Physical Exam 2 Narrative: EXAM NARRATIVE: General: Alert oriented x3, patient seen sleeping in recliner but woke up when I walk into the room. HEENT: Normocephalic, atraumatic, EOMI, breathing 2L NC Cardio: Regular rate rhythm, normal S1-S2, no murmurs rubs gallops, sternotomy scar present. Respiratory: Good air entry, ronchi appreciated through all lung jewell with mild bibasilar crackles. No wheezes GI: Abdomen soft, nontender, nondistended, bowel sounds + Behavior: Appropriate and cooperative Extremities: b/l LE 2+ edema, no cyanosis Urinary Catheter Management^: Feng: Cath Placed During This Visit: yes Reason for Continuing Indwelling Catheter: Accurate Measurement of Urinary Output in Critically Ill Patients Urinary Catheter Date of Insertion: 08/05/21 Urinary Catheter Time of Insertion: 16:10 Data : 08/08/21 03:06 08/08/21 03:06 A&P Assessment and plan (1) Non-ST elevation [place] (NSTEMI): Status: Acute (2) CKD (chronic kidney disease) stage 3, GFR 30-59 ml/min: Status: Acute (3) Acute kidney injury superimposed on CKD: Status: Acute (4) CAD (coronary artery disease): Status: Acute (5) Essential hypertension: Status: Chronic (6) CHF (congestive heart failure): Status: Acute (7) Diabetes mellitus, type II: Status: Acute Additional A&P Information #Acute respiratory failure on admission 2/2 ARF -> pulm edema/CHF exacerbation #NSTEMI #Acute on chronic congestive HF exacerbation #CAD s/p PCI recent stent Jul 31 #ARF on CKD 2/2 contrast (recent cardiac cath) #Uncontrolled HTN, hypertensive urgency #Iron deficiency anemia Hospital Course so far. -Patient recently had stents placed July 31, 2021 and was discharged home. He developed contrast-induced nephropathy and came back to the hospital with acute renal failure and pulmonary edema/heart failure exacerbation due to volume overload. Nitroglycerin drip was also used for management. Nephrology was cons ulted. Patient was diuresed with Lasix. During his hospital stay he also had hypertensive urgency which was controlled with medication adjustments. Blood pressure now is in an acceptable range. Repeat echo was done which showed decreased EF. He was seen by cardiology and decision made to manage conservatively at this point. Patient is currently on a heparin drip which will be continued until discharge as per cardiology. Imdur and hydralazine and small dose of beta-felicitas was also added. Nephrology saw the patient today and have signed off at this point. Patient did not require dialysis this hospital admission. He is chest pain-free today and doing well. He was initially also hyperkalemic at admission which is now resolved. Today's plan 08/08/2021 ?Patient has had good urine output. Creatinine is improved. Lower extremity edema is better. He is still volume overloaded however. Crackles present on exam. Patient being treated medically at this time. Repeat angiogram is being deferred right now to avoid worsening of contrast-induced nephropathy with high likelihood of permanent dialysis. ?Continue hydralazine 100 mg 3 times a day and metoprolol 50 mg twice a day. ?Continue aspirin, Plavix ?Continue heparin drip till patient in the hospital. -Continue patient on Bumex 2 mg oral daily with metolazone. -Continue Ranexa 500 mg twice a day -Continue ferrous sulfate 325 daily. -We will discuss with cardiology regarding further management and recommendations. #Possible component of COPD #Active smoker ?Patient requiring 2 L of oxygen here and is also having rhonchi on exam. Does not have an official diagnosis of COPD that he is aware of. He is not on any inhalers at home either as per what he reports. However I do see albuterol sulfate a part of his home medications. ?I will order DuoNeb every 4 hour as needed for patient today. ?We will order home oxygen evaluation as well. ?Patient will probably benefit from a pulmonology referral at discharge for formal PFTs. - Will order PT assessment for patient. DVT PPX: On Heparin Drip FULL CODE Attestations 2 Medical Necessity Statement*: > 24-48 hour stay. Coding Level of Care Code Acute Naval Aircrewman Mechanical for g Fwd Diagnoses Non-ST elevation [place] (NSTEMI) I21.4 CKD (chronic kidney disease) stage 3, GFR 30-59 ml/min N18.30 Acute kidney injury superimposed on CKD N17.9; N18.9 CAD (coronary artery disease) I25.10 Essential hypertension I10 CHF (congestive heart failure) I50.9 Diabetes mellitus, type II E11.9
[2021-08-08 11:23] LABS: Glucose Point of Care 182 mg/dL (70-110)
[2021-08-08] MEDS: ipratropium-albuterol 3 mL Neb INHALATION ×4 (11:30→23:32)
[2021-08-08] MEDS: pantoprazole DR 40 mg Tablet PO (11:39)
--- NOTE | 2021-08-08 12:05 | PC.SOCIAL ---
IMM update IMM updated with patient. Copy pg 2 provided. Verbalized an understanding. Initialled, dated, timed, and placed in chart.
--- NOTE | 2021-08-08 12:57 | PC.CHAP ---
Pastoral Care Encounter/Spiritual Assessment Type of Contact [] Declined contact lens blocker and cutter visit [] Patient/Family/Request visit [] Outpatient visit [xx] Follow-up visit [] Physician referral [] Code/Alert [xx] Routine visit [] Staff referral [] Actively dying [] Patient sleeping [] Family support [] [] Out of room [] Palliative care [] [] Receiving care in room [] Pre-surgical visit [] Trauma [] Long length of stay [] ICU visit [] Other: Relational/Emotional Strength [xx] Patient feels connected with others/family/visitors/staff [] Distress [] Loneliness/isolation [] Abandonment Spirituality of Patient [xx] Person of Ileana [] Attends Buddhist of their [place]leana [xx] Believes in Prayer [xx] Reads Bible or Jew materials [] There are Spiritual issues to be addressed Manager Photo Interventions [xx] Prayer [xx] Active listening [xx] Non-anxious presence [] Spiritual/emotional support [] Crisis/trauma care [] Spiritual counseling [] Bereavement support [] Provided bereavement packet [xx] Provided Bible/devotional materials [] Provided toy/stuffed animal, coloring book to patient or family member [] Provided Communion [] Anointing/[place] [] Salvation [xx] Completed spiritual assessment [] Other: Impact on Illness or Injury [] Angry [] Fearful [] Anxious [] Often cries [] Exhaustion [] Unable to work [] Unable to attend jainism [] Unable to walk/stand [] Unable to read [] Unable to drive [] Unable to eat/drink [] Unable to sleep [] Unable to be with family [] Patient intubated [] Other: Summary Patient's was present. Patient is feeling better but has not yet received diagnosis from the doctor and is getting a little impatient. Time spent with patient 4 minutes
[2021-08-08 16:41] LABS: Partial Thromboplastin Time 48.6 SECONDS (23.9-36.7)
[2021-08-08 16:46] LABS: Glucose Point of Care 317 mg/dL (70-110)
[2021-08-08] MEDS: heparin drip 25,000 UNIT/500 ML PREMIX 24 UNIT IV (17:54)
[2021-08-08 20:11] LABS: Glucose Point of Care 219 mg/dL (70-110)
[2021-08-09] VITALS (18 sets, daily range): BP systolic 125–141; BP diastolic 47–69; PULSE 53–66; RESP 16–20; TEMP 36.4–37; O2SAT 94–97
[2021-08-09 05:00] LABS: Basophils % 0.2 %; Eosinophils # 0.2 10^3/uL (0.0-0.8); Eosinophils % 2.1 %; Hematocrit 30.4 % (42.0-52.0); Hemoglobin 9.4 g/dL (11.7-16.6); Lymphocytes # 1.4 10^3/uL (0.8-4.8); Lymphocytes % 15.5 %; Mean Corpuscular HGB Conc 30.9 g/dL (30.0-36.0); Mean Corpuscular Hemoglobin 29.4 pg (28.0-34.0); Mean Platelet Volume 10.4 fL (7.4-10.4); Monocytes % 10.7 %; Neutrophils # 6.39 10^3/uL (1.8-7.7); Neutrophils % 70.5 %; Nucleated Red Blood Cells % 0 %; Platelet Count 409 10^3/cmm (130-400); Red Cell Distribution Width 13.5 % (12.1-15.1); White Blood Count 9.1 10^3/uL (4.0-10.0)
[2021-08-09 05:14] LABS: Anion Gap 19.1 (5-19); Blood Urea Nitrogen 43 mg/dL (8-23); Calcium 7.9 mg/dL (8.5-10.5); Carbon Dioxide 24 mmol/L (22-29); Chloride 99 mmol/L (98-107); Glomerular Filtration Rate 20.2 mL/min (90-130); Glucose 133 mg/dL (65-115); Osmolality Calculated 299 mOsm/kg (285-295); Potassium 4.1 mmol/L (3.5-5.1); Sodium 138 mmol/L (136-145)
[2021-08-09] MEDS: clopidogrel 75 mg Tablet PO (06:27)
[2021-08-09] MEDS: aspirin 81 mg EC Tablet PO (06:27)
[2021-08-09 06:28] LABS: Glucose Point of Care 152 mg/dL (70-110)
[2021-08-09] MEDS: ipratropium-albuterol 3 mL Neb INHALATION ×4 (07:25→20:07)
[2021-08-09] MEDS: insulin lispro 100 unit/1 mL SUBCUT ×4 (07:35→20:25)
[2021-08-09] MEDS: hyDRALAzine 50 mg Tablet 100 MG PO ×3 (07:37→19:39)
[2021-08-09] MEDS: ferrous sulfate EC 325 mg Tablet PO ×2 (07:37→17:06)
[2021-08-09] MEDS: metoprolol tartrate 50 mg Tablet PO ×2 (07:37→19:39)
[2021-08-09] MEDS: bumetanide 1 mg Tablet 2 MG PO (07:37)
[2021-08-09] MEDS: atorvastatin 40 mg Tablet 80 MG PO (07:38)
[2021-08-09] MEDS: ranolazine (12HR) 500 mg Tablet PO ×2 (07:38→17:06)
[2021-08-09] MEDS: metOLazone 5 MG Tablet 10 MG PO (07:38)
[2021-08-09] MEDS: prazosin 1 mg Capsule PO ×2 (07:39→17:05)
[2021-08-09] MEDS: docusate sodium 100 mg Capsule PO ×2 (07:39→17:06)
[2021-08-09] MEDS: potassium chloride ER 20 mEq Tablet PO (07:39)
[2021-08-09] MEDS: isosorbide mononitrate ER 30 mg Tablet PO ×2 (07:39→17:06)
[2021-08-09 07:56] LABS: Partial Thromboplastin Time 62.9 SECONDS (23.9-36.7)
--- NOTE | 2021-08-09 10:51 | PM.PN ---
Subjective Subjective: Interval history: Cardiology coverage Patient status post PCI of the PDA for non-ST elevation myocardial infarction. Developed contrast induced nephropathy and congestive heart failure. Heart failure seems to be improving. Kidney function seems to have stabilized. Denies any fever or chills. No cough. Able to get up and move around. Currently on Bumex 2 mg. Fluid intake and output seems appropriate. Medications: Reviewed: Yes Medication Review Details: Current Medications Acetaminophen (Acetaminophen 325 Mg Tablet) 650 mg PO Q6H PRN PRN Reason: MILD PAIN Acetaminophen (Acetaminophen 325 Mg Tablet) 650 mg PO Q6H PRN PRN Reason: Mild/Mod Pain Or Temp >/= 101 Albuterol Sulfate (Albuterol 8 Gm Mdi) 2 puff INHALATION Q4H PRN PRN Reason: Shortness Of Breath Albuterol/Ipratropium (Ipratropium-Albuterol 3 Ml Neb) 3 ml INHALATION Q4H.RESPIRATORY [facility] Last Admin: 08/09/21 07:25 Dose: 3 ml Documented by: Aspirin (Aspirin 81 Mg Ec Tablet) [facility] [place] Last Admin: 08/09/21 06:27 Dose: 81 mg Documented by: Atorvastatin Calcium (Atorvastatin 40 Mg Tablet) 80 mg PO DAILY [facility] Last Admin: 08/09/21 07:38 Dose: 80 mg Documented by: Bumetanide (Bumetanide 1 Mg Tablet) 2 mg PO DAILY [facility] Last Admin: 08/09/21 07:37 Dose: 2 mg Documented by: Clopidogrel Bisulfate (Clopidogrel 75 Mg Tablet) 75 mg PO QAM [facility] Last Admin: 08/09/21 06:27 Dose: 75 mg Documented by: Dextrose (Dextrose 50% Syringe 50 Ml) 25 ml IVP ONCE PRN; Protocol PRN Reason: hypoglycemia protocol Dextrose (Dextrose 50% Syringe 50 Ml) 50 ml IVP PRN PRN; Protocol PRN Reason: hypoglycemia protocol Docusate Sodium (Docusate Sodium 100 Mg Capsule) 100 mg PO BID [facility] Last Admin: 08/09/21 07:39 Dose: 100 mg Documented by: Ferrous Sulfate (Ferrous Sulfate Ec 325 Mg Tablet) 325 mg PO BIDWM [facility] Last Admin: 08/09/21 07:37 Dose: 325 mg Documented by: Glucagon (Glucagon 1 Mg/Ml Inj 1 Ml) 1 mg IM ONCE PRN; Protocol PRN Reason: Adult Acute Hypoglycemia Prot. Heparin Sodium (Porcine) (Heparin 5,000 Unit/Ml Inj 1 Ml) 0 unit IV PRN PRN; Protocol PRN Reason: Heparin weight-base protocol Last Admin: 08/07/21 22:00 Dose: 1,600 unit Documented by: Hydralazine HCl (Hydralazine 50 Mg Tablet) 100 mg PO TID [facility] Last Admin: 08/09/21 07:37 Dose: 100 mg Documented by: Dextrose (D5w) 500 mls @ 100 mls/hr IV ONCE PRN; Protocol PRN Reason: Adult Acute Hypoglycemia Prot Heparin Sodium/Sodium Chloride (Heparin Drip) 25,000 unit in 500 mls @ 0 mls/hr IV .Q0M [facility]; Protocol Last Titration: 08/09/21 01:06 Dose: 16.06 unit/kg/hr, 22 mls/hr Documented by: Insulin Human Lispro (Insulin Lispro 100 Unit/1 Ml) 0 unit SUBCUT WM&BEDTIME [facility]; Protocol Last Admin: 08/09/21 07:35 Dose: 4 unit Documented by: Isosorbide Mononitrate (Isosorbide Mononitrate Er 30 Mg Tablet) 30 mg PO BID [facility] Last Admin: 08/09/21 07:39 Dose: 30 mg Documented by: Magnesium Hydroxide (Magnesium Hydroxide 30 Ml Udc) 30 ml PO DAILY PRN PRN Reason: CONSTIPATION Last Admin: 08/06/21 10:34 Dose: 30 ml Documented by: Metolazone (Metolazone 5 Mg Tablet) 10 mg PO DAILY [facility] Last Admin: 08/09/21 07:38 Dose: 10 mg Documented by: Metoprolol Tartrate (Metoprolol Tartrate 50 Mg Tablet) 50 mg PO BID@0900,2100 [facility] Last Admin: 08/09/21 07:37 Dose: 50 mg Documented by: Morphine Sulfate (Morphine 4 Mg/Ml Sdv 1 Ml) 2 mg IVP Q4H PRN PRN Reason: SEVERE PAIN Ondansetron HCl (Ondansetron 2 Mg/Ml Sdv 2 Ml) 4 mg IVP Q6H PRN PRN Reason: NAUSEA AND VOMITING Pantoprazole Sodium (Pantoprazole Dr 40 Mg Tablet) 40 mg PO DAILY@12 [facility] Last Admin: 08/08/21 11:39 Dose: 40 mg Documented by: Potassium Chloride (Potassium Chloride Er 20 Meq Tablet) 20 meq PO DAILY [facility] Last Admin: 08/09/21 07:39 Dose: 20 meq Documented by: Prazosin HCl (Prazosin 1 Mg Capsule) 1 mg PO BID [facility] Last Admin: 08/09/21 07:39 Dose: 1 mg Documented by: Ranolazine (Ranolazine (12hr) 500 Mg Tablet) 500 mg PO BID [facility] Last Admin: 08/09/21 07:38 Dose: 500 mg Documented by: Temazepam (Temazepam 15 Mg Capsule) 15 mg PO BEDTIME PRN PRN Reason: INSOMNIA Last Admin: 08/07/21 22:28 Dose: 15 mg Documented by: Vitals/I&O/Wt Last Vital Signs Temp 98.6 F 08/09/21 08:44 Pulse 60 08/09/21 08:44 Resp 18 08/09/21 08:44 BP 140/56 08/09/21 08:44 Pulse Ox 95 08/09/21 08:44 08/08/21 08/09/21 08/09/21 22:59 06:59 14:59 Intake Total 417.467 / 1035.800 472.8 / 1508.600 236 / 236 Output Total 1400 / 1400 575 / 1975 Balance -982.533 / -364.200 -102.2 / -466.400 236 / 236 Physical Exam Narrative: EXAM NARRATIVE: GENERAL: The patient is alert and oriented times three. Not in any acute distress. HEENT: No significant pallor, icterus or lymphadenopathy.Oral cavity: There are no mucous membrane lesions. NECK: Trachea appears to be central. No masses noted. No JVD or thyromegaly appreciated. RESPIRATORY: Chest is symmetrical. No intercostals muscle retraction or any accessory muscle activation. There is no chest wall tenderness. Breath sounds are heard bilaterally. No rales or rhonchi heard. No evidence of any consolidation. BREASTS: Deferred. HEART: The heart sounds are normal. No S3 or S4. Short systolic murmur in the left sternal border. No diastolic murmurs. No pericardial rub ABDOMEN: No vessel pulsations or distention. No tenderness. No organomegaly appreciated. Bowel sounds are normally heard. : Deferred. RECTAL: Deferred. LYMPHATIC: No lymphadenopathy noted in the neck or groin. EXTREMITIES: 2+ edema of both lower extremities. No cyanosis. MUSCULOSKELETAL: No acute joint deformities or swelling SKIN: There are no significant rashes or ecchymosis NEUROPSYCHIATRIC: The patient is alert and oriented x3. Appears to be in a good mood. No tremors or rigidity noted. Urinary Catheter Management^: Feng: Cath Placed During This Visit: yes Reason for Continuing Indwelling Catheter: Accurate Measurement of Urinary Output in Critically Ill Patients Urinary Catheter Date of Insertion: 08/05/21 Urinary Catheter Time of Insertion: 16:10 Data : 08/10/21 04:16 08/10/21 04:16 Other Labs: Laboratory Last Values WBC 9.1 10^3/uL (4.0-10.0) 08/09/21 04:29 RBC 3.20 10^6/uL (4.1-5.3) L 08/09/21 04:29 Hgb 9.4 g/dL (11.7-16.6) L 08/09/21 04:29 Hct 30.4 % (42.0-52.0) L 08/09/21 04:29 MCV 95.0 fl (80-94) H 08/09/21 04:29 MCH 29.4 pg (28.0-34.0) 08/09/21 04:29 MCHC 30.9 g/dL (30.0-36.0) 08/09/21 04:29 RDW 13.5 % (12.1-15.1) 08/09/21 04:29 Plt Count 409 10^3/cmm (130-400) H 08/09/21 04:29 MPV 10.4 fL (7.4-10.4) 08/09/21 04:29 Neut % (Auto) 70.5 % 08/09/21 04:29 Lymph % (Auto) 15.5 % 08/09/21 04:29 Luna % (Auto) 10.7 % 08/09/21 04:29 Eos % (Auto) 2.1 % 08/09/21 04:29 Baso % (Auto) 0.2 % 08/09/21 04:29 Neut # (Auto) 6.39 10^3/uL (1.8-7.7) 08/09/21 04:29 Lymph # (Auto) 1.4 10^3/uL (0.8-4.8) 08/09/21 04:29 Luna # (Auto) 1.0 10^3/uL (0.2-0.9) H 08/09/21 04:29 Eos # (Auto) 0.2 10^3/uL (0.0-0.8) 08/09/21 04:29 Baso # (Auto) 0.0 10^3/uL (0.0-0.1) 08/09/21 04:29 Nucleated RBC % (auto) 0 % 08/09/21 04:29 Nucleated RBCs # 0.0 /100WBC 08/09/21 04:29 APTT 62.9 SECONDS (23.9-36.7) H 08/09/21 07:10 Specimen Type Arterial 08/05/21 12:48 Sample Site Brachial, left 08/05/21 12:48 ABG pH 7.31 (7.35-7.45) L 08/05/21 12:48 ABG pCO2 39.9 mmHg (35-45) 08/05/21 12:48 ABG pO2 81.9 mmHg (80.0-100.0) 08/05/21 12:48 ABG HCO3 19.9 mmol/L (22-26) L 08/05/21 12:48 ABG O2 Saturation 95.5 08/05/21 12:48 ABG Base Excess -6.0 mmol/L (-2.0-2.0) L 08/05/21 12:48 Brian Test N/a 08/05/21 12:48 A-a O2 Gradient 23.9 mmHg (5-10) H 08/05/21 12:48 Hematocrit 33.1 % (42-52) L 08/05/21 12:48 Hgb O2 Saturation 94.7 % (95-100) L 08/05/21 12:48 Carboxyhemoglobin 0.5 %THgb (0.4-20.1) 08/05/21 12:48 Methemoglobin 0.3 % (0.4-1.5) L 08/05/21 12:48 Total Hemoglobin 10.8 g/dL (14-18) L 08/05/21 12:48 Sodium 134.0 mmol/L (131-143) 08/05/21 12:48 Potassium 5.3 mmol/L (3.5-5.0) H 08/05/21 12:48 Glucose 291.0 mg/dL (70-115) H 08/05/21 12:48 Ionized Calcium 1.2 mmol/L (1.1-1.4) 08/05/21 12:48 O2 Delivery Device Bipap 08/05/21 12:48 O2 Liters/Min 8.0 % 08/05/21 10:43 FiO2 45.0 % 08/05/21 12:48 Card Player ID Ed 08/05/21 12:48 Sodium 138 mmol/L (136-145) 08/09/21 04:29 Potassium 4.1 mmol/L (3.5-5.1) 08/09/21 04:29 Chloride 99 mmol/L (98-107) 08/09/21 04:29 Carbon Dioxide 24 mmol/L (22-29) 08/09/21 04:29 Anion Gap 19.1 (5-19) H 08/09/21 04:29 BUN 43 mg/dL (8-23) H 08/09/21 04:29 Creatinine 3.1 mg/dL (0.7-1.2) H 08/09/21 04:29 GFR Calculation 20.2 mL/min (90-130) L 08/09/21 04:29 Glucose 133 mg/dL (65-115) H 08/09/21 04:29 POC Glucose 152 mg/dL (70-110) H 08/09/21 06:19 Calculated Osmolality 299 mOsm/kg (285-295) H 08/09/21 04:29 Lactic Acid 1.4 mmol/L (0.5-2.2) 08/05/21 11:27 Calcium 7.9 mg/dL (8.5-10.5) L 08/09/21 04:29 Phosphorus 5.0 mg/dL (2.5-4.5) H 08/07/21 06:25 Magnesium 2.0 mg/dL (1.7-2.3) 08/09/21 04:29 Total Bilirubin 0.2 mg/dL (0.15-1.2) 08/08/21 03:06 AST 14 U/L (0-40) 08/08/21 03:06 ALT 15 U/L (0-41) 08/08/21 03:06 Alkaline Phosphatase 80 IU/L (40-130) 08/08/21 03:06 Creatine Kinase 227 U/L (39-308) 08/05/21 12:55 Troponin T Baseline 3037 ng/L (0-15) H* 08/05/21 10:30 Troponin T 120 Minute 2872 ng/L (0-15) H 08/05/21 12:55 Delta Troponin T -165 ABS# (0-10) L 08/05/21 12:55 Troponin T Hi Sens 6Hr 3104 ng/L (0-15) H 08/05/21 16:30 Troponin T Hi Sens 6Hr Delta 67 ng/L (0-12) H* 08/05/21 16:30 Total Protein 5.9 g/dL (6.6-8.7) L 08/08/21 03:06 Albumin 2.9 g/dL (3.5-5.2) L 08/08/21 03:06 Globulin 3.0 g/dL (1.3-4.6) 08/08/21 03:06 TSH 1.71 uIU/mL (0.27-4.20) 08/05/21 12:55 Urine Color Yellow (Yellow) 08/05/21 16:15 Urine Appearance Clear (CLEAR) 08/05/21 16:15 Urine pH 5 (5-7) 08/05/21 16:15 Ur Specific [place] 1.020 (1.005-1.030) 08/05/21 16:15 Urine Protein 3+ (Negative) H 08/05/21 16:15 Urine Glucose (UA) 2+ (Normal) H 08/05/21 16:15 Urine Ketones Negative (Negative) 08/05/21 16:15 Urine Blood Neg (Negative) 08/05/21 16:15 Urine Nitrate Negative (Negative) 08/05/21 16:15 Urine Bilirubin Neg (Negative) 08/05/21 16:15 Urine Urobilinogen Norm mg/dL (Negative) 08/05/21 16:15 Ur Leukocyte Esterase Negative (Negative) 08/05/21 16:15 Urine RBC None /hpf (0-2) 08/05/21 16:15 Urine WBC 0-4 /hpf (0-5) H 08/05/21 16:15 Ur Squamous Epith Cells None /hpf (0-5) 08/05/21 16:15 Amorphous Sediment Trace /hpf 08/05/21 16:15 Urine Bacteria None /hpf (NONE) 08/05/21 16:15 Ur Random Sodium 39 mmol/L 08/05/21 16:15 Urine Creatinine 102 mg/dL (39-259) 08/05/21 16:15 A&P Assessment and plan (1) CHF (congestive heart failure): Patient seems to be clinically getting compensated. We will continue to optimize the heart failure medications. Status: Acute Qualifiers: Heart failure chronicity: acute Heart failure type: combined systolic and diastolic Qualified Code(s): I50.41 - Acute combined systolic (congestive) and diastolic (congestive) heart failure (2) Non-ST elevation CT (NSTEMI): I may discontinue the IV heparin at this point. Patient may be started on subcu Lovenox for DVT prophylaxis. Continue the aspirin and the Plavix Status: Acute (3) Acute kidney injury superimposed on CKD: Continue careful diuresis Status: Acute (4) Anemia, iron deficiency: Continue on the current measures. The IV Bumex may be changed to p.o. 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 Advised to continue on the current medications. Importance of compliance to diet and exercise were discussed which the patient seems to understand well. Status: Acute (6) Sinus pause: Since the patient has no recurrence of pauses or symptomatic bradycardia, may not require any specific intervention. Status: Acute Additional A&P Information Based on the patient's the clinical progress, further management decisions will be made. 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
[2021-08-09 11:28] LABS: Glucose Point of Care 236 mg/dL (70-110)
[2021-08-09] MEDS: pantoprazole DR 40 mg Tablet PO (11:35)
--- NOTE | 2021-08-09 12:56 | PM.PN ---
Subjective Subjective: Interval history: Seen and examined today. present at bedside. She was updated in person. She states originally patient's appointment with Dr. Anaya in [place] on October 28 and she would like for the patient to be seen sooner. Vitals/I&O/Wt Last Vital Signs Temp 98.6 F 08/09/21 12:05 Pulse 55 L 08/09/21 12:05 Resp 17 08/09/21 12:05 BP 129/49 08/09/21 12:05 Pulse Ox 94 08/09/21 12:05 08/08/21 08/09/21 08/09/21 22:59 06:59 14:59 Intake Total 417.467 / 1035.800 472.8 / 1508.600 472 / 472 Output Total 1400 / 1400 575 / 1975 Balance -982.533 / -364.200 -102.2 / -466.400 472 / 472 Physical Exam Narrative: EXAM NARRATIVE: General: Alert oriented x3, patient seen sitting up in recliner HEENT: Normocephalic, atraumatic, EOMI, breathing 2L NC Cardio: Regular rate rhythm, normal S1-S2, no murmurs rubs gallops, sternotomy scar present. Respiratory: Good air entry, ronchi appreciated through all lung jewell with no crackles at bases. No wheezes, no ronchi GI: Abdomen soft, nontender, nondistended, bowel sounds + Behavior: Appropriate and cooperative Extremities: no LE edema, no cyanosis Urinary Catheter Management^: Feng: Cath Placed During This Visit: yes Reason for Continuing Indwelling Catheter: Accurate Measurement of Urinary Output in Critically Ill Patients Urinary Catheter Date of Insertion: 08/05/21 Urinary Catheter Time of Insertion: 16:10 Data : 08/09/21 04:29 08/09/21 04:29 A&P Assessment and plan (1) Non-ST elevation [place] (NSTEMI): Status: Acute (2) CKD (chronic kidney disease) stage 3, GFR 30-59 ml/min: Status: Acute (3) Acute kidney injury superimposed on CKD: Status: Acute (4) CAD (coronary artery disease): Status: Acute (5) Essential hypertension: Status: Chronic (6) CHF (congestive heart failure): Status: Acute (7) Diabetes mellitus, type II: Status: Acute Additional A&P Information #Acute respiratory failure on admission 2/2 ARF -> pulm edema/CHF exacerbation #NSTEMI #Acute on chronic congestive HF exacerbation #CAD s/p PCI recent stent Jul 31 #ARF on CKD 2/2 contrast (recent cardiac cath) #Uncontrolled HTN, hypertensive urgency #Iron deficiency anemia Hospital Course so far. -Patient recently had stents placed July 31, 2021 and was discharged home. He developed contrast-induced nephropathy and came back to the hospital with acute renal failure and pulmonary edema/heart failure exacerbation due to volume overload. Nitroglycerin drip was also used for management. Nephrology was consulted. Patient was diuresed with Lasix. During his hospital stay he also had hypertensive urgency which was controlled with medication adjustments. Blood pressure now is in an acceptable range. Repeat echo was done which showed decreased EF. He was seen by cardiology and decision made to manage conservatively at this point. Patient is currently on a heparin drip which will be continued until discharge as per cardiology. Imdur and hydralazine and small dose of beta-felicitas was also added. Nephrology saw the patient today and have signed off at this point. Patient did not require dialysis this hospital admission. He is chest pain-free today and doing well. He was initially also hyperkalemic at admission which is now resolved. Today's plan 08/09/2020 ?Patient has had good urine output. Creatinine is improved. Lower extremity edema is better. He is still volume overloaded however. Crackles present on exam. Patient being treated medically at this time. Repeat angiogram is being deferred right now to avoid worsening of contrast-induced nephropathy with high likelihood of permanent dialysis. ?Continue hydralazine 100 mg 3 times a day and metoprolol 50 mg twice a day. ?Continue aspirin, Plavix ?Continue heparin drip till patient in the hospital. -Continue patient on Bumex 2 mg oral daily with metolazone. -Continue Ranexa 500 mg twice a day -Continue ferrous sulfate 325 daily. -We will discuss with cardiology regarding further management and recommendations. We will touch base with cardiology regarding discharge planning. #Possible component of COPD #Active smoker ?Patient requiring 2 L of oxygen here and is also having rhonchi on exam. Does not have an official diagnosis of COPD that he is aware of. He is not on any inhalers at home either as per what he reports. However I do see albuterol sulfate a part of his home medications. ?Continue duo nebs. I have discussed with family regarding pulmonary referral at discharge and they are agreeable for that. They state they do have an appointment coming up but unsure when it is because they were given the referral at the previous admission. I did tell them I will be starting them on inhalers when you leave the hospital. Patient and are both agreeable. ?We will order home oxygen evaluation as well. -Zickel therapy is also work with the patient at this point. Patient will be going home with his when discharge. DVT PPX: On Heparin Drip FULL CODE Attestations Medical Necessity Statement*: Greater than 24-hour stay. Coding Level of Care Code Acute Inspector Hairspring for Hong Cunningham Diagnoses Non-ST elevation UT (NSTEMI) I21.4 CKD (chronic kidney disease) stage 3, GFR 30-59 ml/min N18.30 Acute kidney injury superimposed on CKD N17.9; N18.9 CAD (coronary artery disease) I25.10 Essential hypertension I10 CHF (congestive heart failure) I50.9 Diabetes mellitus, type II E11.9
[2021-08-09 13:59] LABS: Partial Thromboplastin Time 47.9 SECONDS (23.9-36.7)
[2021-08-09 16:43] LABS: Glucose Point of Care 239 mg/dL (70-110)
[2021-08-09] MEDS: enoxaparin 30 mg/0.3 mL Syringe SUBCUT (19:39)
[2021-08-09 20:11] LABS: Glucose Point of Care 340 mg/dL (70-110)
[2021-08-10] VITALS (17 sets, daily range): BP systolic 119–151; BP diastolic 49–64; PULSE 54–67; RESP 14–24; TEMP 36.5–36.6; O2SAT 94–98
[2021-08-10 04:52] LABS: Basophils % 0.3 %; Eosinophils # 0.2 10^3/uL (0.0-0.8); Eosinophils % 1.9 %; Hemoglobin 8.6 g/dL (11.7-16.6); Lymphocytes # 1.2 10^3/uL (0.8-4.8); Lymphocytes % 12.8 %; Mean Corpuscular HGB Conc 30.7 g/dL (30.0-36.0); Mean Corpuscular Hemoglobin 29.5 pg (28.0-34.0); Mean Corpuscular Volume 95.9 fl (80-94); Mean Platelet Volume 10.3 fL (7.4-10.4); Monocytes # 1.1 10^3/uL (0.2-0.9); Neutrophils # 6.54 10^3/uL (1.8-7.7); Neutrophils % 71.8 %; Nucleated Red Blood Cells % 0 %; Platelet Count 364 10^3/cmm (130-400); Red Blood Count 2.92 10^6/uL (4.1-5.3); Red Cell Distribution Width 13.7 % (12.1-15.1); White Blood Count 9.1 10^3/uL (4.0-10.0)
[2021-08-10 05:12] LABS: Anion Gap 19.2 (5-19); Blood Urea Nitrogen 44 mg/dL (8-23); Calcium 7.7 mg/dL (8.5-10.5); Carbon Dioxide 23 mmol/L (22-29); Chloride 103 mmol/L (98-107); Glucose 130 mg/dL (65-115); Osmolality Calculated 305 mOsm/kg (285-295); Potassium 4.2 mmol/L (3.5-5.1); Sodium 141 mmol/L (136-145)
[2021-08-10] MEDS: aspirin 81 mg EC Tablet PO (05:41)
[2021-08-10] MEDS: clopidogrel 75 mg Tablet PO (05:41)
[2021-08-10 06:31] LABS: Glucose Point of Care 164 mg/dL (70-110)
[2021-08-10] MEDS: ranolazine (12HR) 500 mg Tablet PO ×2 (07:27→17:27)
[2021-08-10] MEDS: bumetanide 1 mg Tablet 2 MG PO (07:27)
[2021-08-10] MEDS: atorvastatin 40 mg Tablet 80 MG PO (07:27)
[2021-08-10] MEDS: hyDRALAzine 50 mg Tablet 100 MG PO ×3 (07:27→19:43)
[2021-08-10] MEDS: docusate sodium 100 mg Capsule PO ×2 (07:27→17:27)
[2021-08-10] MEDS: prazosin 1 mg Capsule PO ×2 (07:28→17:27)
[2021-08-10] MEDS: ferrous sulfate EC 325 mg Tablet PO ×2 (07:28→17:28)
[2021-08-10] MEDS: isosorbide mononitrate ER 30 mg Tablet PO ×2 (07:28→17:27)
[2021-08-10] MEDS: metOLazone 5 MG Tablet 10 MG PO (07:28)
[2021-08-10] MEDS: potassium chloride ER 20 mEq Tablet PO (07:28)
[2021-08-10] MEDS: insulin lispro 100 unit/1 mL SUBCUT ×4 (07:28→20:10)
[2021-08-10] MEDS: metoprolol tartrate 50 mg Tablet PO ×2 (09:37→19:43)
[2021-08-10] MEDS: ipratropium-albuterol 3 mL Neb INHALATION ×5 (09:59→20:08)
[2021-08-10 10:44] LABS: Glucose Point of Care 246 mg/dL (70-110)
[2021-08-10] MEDS: pantoprazole DR 40 mg Tablet PO (11:33)
--- NOTE | 2021-08-10 12:35 | PC.SOCIAL ---
IMM Update Pg. 2 of IMM updated and reviewed with patient, who verbalized understanding. Copy provided.
--- NOTE | 2021-08-10 13:15 | PM.PN ---
Subjective Subjective: Interval history: Seen this AM. No acute events overnight but patient's states he didnt have a good sleep since he kept getting woken up for various things. Medically is he is doing well. Heparin drip was stopped yesterday by cardiology and he was placed on DVT ppx dose. Cardiology would like to monitor pt in hospital for another day for optimization of meds. Vitals/I&O/Wt Last Vital Signs Temp 97.7 F 08/10/21 11:17 Pulse 58 L 08/10/21 11:17 Resp 17 08/10/21 11:17 BP 133/50 08/10/21 11:17 Pulse Ox 95 08/10/21 11:17 08/09/21 08/10/21 08/10/21 22:59 06:59 14:59 Intake Total 236 / 708 300 / 1008 472 / 472 Output Total 1250 / 1250 300 / 1550 250 / 250 Balance -1014 / -542 0 / -542 222 / 222 Weight last 48 hrs Weight 75.432 kg Physical Exam Narrative: EXAM NARRATIVE: General: Alert oriented x3, patient seen sitting up in recliner HEENT: Normocephalic, atraumatic, EOMI, breathing 2L NC Cardio: Regular rate rhythm, normal S1-S2, no murmurs rubs gallops, sternotomy scar present. Respiratory: Good air entry, lungs relatively clear to auscultation today with no crackles at bases. No wheezes, no ronchi GI: Abdomen soft, nontender, nondistended, bowel sounds + Behavior: Appropriate and cooperative Extremities: no LE edema, no cyanosis Urinary Catheter Management^: Feng: Cath Placed During This Visit: yes, but has since been removed by the nurse Reason for Continuing Indwelling Catheter: Not indwelling catheter Urinary Catheter Date of Insertion: 08/05/21 Urinary Catheter Time of Insertion: 16:10 Date Urinary Catheter Removed: 08/09/21 Time Urinary Catheter Discontinued: 14:40 Data : 08/10/21 04:16 08/10/21 04:16 Micro: Microbiology 08/05/21 11:27 Blood Culture - Final Blood NO GROWTH AFTER 5 DAYS 08/05/21 11:27 Blood Culture - Final Blood NO GROWTH AFTER 5 DAYS A&P Assessment and plan (1) Non-ST elevation CO (NSTEMI): Status: Acute (2) CKD (chronic kidney disease) stage 3, GFR 30-59 ml/min: Status: Acute (3) Acute kidney injury superimposed on CKD: Status: Acute (4) CAD (coronary artery disease): Status: Acute (5) Essential hypertension: Status: Chronic (6) CHF (congestive heart failure): Status: Acute Qualifiers: Heart failure type: combined systolic and diastolic Heart failure chronicity: acute Qualified Code(s): I50.41 - Acute combined systolic (congestive) and diastolic (congestive) heart failure (7) Diabetes mellitus, type II: Status: Acute Additional A&P Information #Acute respiratory failure on admission 2/2 ARF -> pulm edema/CHF exacerbation #NSTEMI #Acute on chronic congestive HF exacerbation #CAD s/p PCI recent stent Jul 31 #ARF on CKD 2/ contrast (recent cardiac cath) #Uncontrolled HTN, hypertensive urgency #Iron deficiency anemia Hospital Course so far. -Patient recently had stents placed July 31, 2021 and was discharged home. He developed contrast-induced nephropathy and came back to the hospital with acute renal failure and pulmonary edema/heart failure exacerbation due to volume overload. Nitroglycerin drip was also used for management. Nephrology was consulted. Patient was diuresed with Lasix. During his hospital stay he also had hypertensive urgency which was controlled with medication adjustments. Blood pressure now is in an acceptable range. Repeat echo was done which showed decreased EF. He was seen by cardiology and decision made to manage conservatively at this point. PT was placed on heparin drip which was d/c 08/09/2021.Imdur and hydralazine and small dose of beta-felicitas was also added. Nephrology saw the patient have signed off at this point. Patient did not require dialysis this hospital admission. Dr. Ku states patient would need very close follow up with nephrology (Dr. Anaya) as an outpatient and would need a sooner appointment than October 28 (previously scheduled). On Wednesday AM, we will attempt to call his office to try to schedule appt for patient. He is chest pain-free today and doing well. He was initially also hyperkalemic at admission which is now resolved. Today's plan 08/10/2020 ?Patient has had good urine output. Creatinine is improved. Lower extremity edema is better. Appears more euvolemic. Will continue oral diuretics. Patient being treated medically at this time. Repeat angiogram is being deferred right now to avoid worsening of contrast-induced nephropathy with high likelihood of permanent dialysis. ?Continue hydralazine 100 mg 3 times a day and metoprolol 50 mg twice a day. ?Continue aspirin, Plavix -Continue patient on Bumex 2 mg oral daily with metolazone. He will need close f/u with nephro outpatient for adjustment of diuretic doses. -Continue Ranexa 500 mg twice a day -Continue ferrous sulfate 325 daily. -We will discuss with cardiology regarding further management and recommendations. We will touch base with cardiology regarding discharge planning. #Possible component of COPD #Active smoker ?Patient requiring 2 L of oxygen here and is also having rhonchi on exam. Does not have an official diagnosis of COPD that he is aware of. He is not on any inhalers at home either as per what he reports. However I do see albuterol sulfate a part of his home medications. ?Continue duo nebs. I have discussed with family regarding pulmonary referral at discharge and they are agreeable for that. They state they do have an appointment coming up but unsure when it is because they were given the referral at the previous admission. I did tell them I will be starting them on inhalers when you leave the hospital. Patient and are both agreeable. ?We will order home oxygen evaluation as well. -Physical therapy is also work with the patient at this point. Patient will be going home with his when discharge. DVT PPX: lovenox FULL CODE Attestations Medical Necessity Statement*: > 24 hours. Monitor another 24 hours in hospital for optimization of medications. Coding Level of Care Code Acute Seed [employer] Field Supervisor for [facility] Fwd Diagnoses Non-ST elevation CO (NSTEMI) I21.4 CKD (chronic kidney disease) stage 3, GFR 30-59 ml/min N18.30 Acute kidney injury superimposed on CKD N17.9; N18.9 CAD (coronary artery disease) I25.10 Essential hypertension I10 CHF (congestive heart failure) I50.41 Heart failure type: combined systolic and diastolic Heart failure chronicity: acute Diabetes mellitus, type II E11.9
[2021-08-10 16:23] LABS: Glucose Point of Care 184 mg/dL (70-110)
--- NOTE | 2021-08-10 17:08 | P.PN_ITS ---
Subjective Subjective: Interval history: The patient is feeling okay. Denies any chest pain or chest tightness. Has some shortness of breath with activities. No orthopnea PND. No chest pain or chest tightness. No new symptoms. The IV Bumex was changed to p.o today. Medications: Reviewed: Yes Medication Review Details: Current Medications Acetaminophen (Acetaminophen 325 Mg Tablet) 650 mg PO Q6H PRN PRN Reason: MILD PAIN Acetaminophen (Acetaminophen 325 Mg Tablet) 650 mg PO Q6H PRN PRN Reason: Mild/Mod Pain Or Temp >/= 101 Albuterol Sulfate (Albuterol 8 Gm Mdi) 2 puff INHALATION Q4H PRN PRN Reason: Shortness Of Breath Albuterol/Ipratropium (Ipratropium-Albuterol 3 Ml Neb) 3 ml INHALATION Q4H.RESPIRATORY [facility] Last Admin: 08/10/21 16:37 Dose: 3 ml Documented by: Aspirin (Aspirin 81 Mg Ec Tablet) 81 mg PO QAM [facility] Last Admin: 08/10/21 05:41 Dose: 81 mg Documented by: Atorvastatin Calcium (Atorvastatin 40 Mg Tablet) 80 mg PO DAILY [facility] Last Admin: 08/10/21 07:27 Dose: 80 mg Documented by: Bumetanide (Bumetanide 1 Mg Tablet) 2 mg PO DAILY [facility] Last Admin: 08/10/21 07:27 Dose: 2 mg Documented by: Clopidogrel Bisulfate (Clopidogrel 75 Mg Tablet) 75 mg PO QAM [facility] Last Admin: 08/10/21 05:41 Dose: 75 mg Documented by: Dextrose (Dextrose 50% Syringe 50 Ml) 25 ml IVP ONCE PRN; Protocol PRN Reason: hypoglycemia protocol Dextrose (Dextrose 50% Syringe 50 Ml) 50 ml IVP PRN PRN; Protocol PRN Reason: hypoglycemia protocol Docusate Sodium (Docusate Sodium 100 Mg Capsule) 100 mg PO BID [facility] Last Admin: 08/10/21 07:27 Dose: 100 mg Documented by: Enoxaparin Sodium (Enoxaparin 30 Mg/0.3 Ml Syringe) 30 mg SUBCUT Q24H [facility] Last Admin: 08/09/21 19:39 Dose: 30 mg Documented by: Ferrous Sulfate (Ferrous Sulfate Ec 325 Mg Tablet) 325 mg PO BIDWM [facility] Last Admin: 08/10/21 07:28 Dose: 325 mg Documented by: Glucagon (Glucagon 1 Mg/Ml Inj 1 Ml) 1 mg IM ONCE PRN; Protocol PRN Reason: Adult Acute Hypoglycemia Prot. Hydralazine HCl (Hydralazine 50 Mg Tablet) 100 mg PO TID [facility] Last Admin: 08/10/21 14:54 Dose: 100 mg Documented by: Dextrose (D5w) 500 mls @ 100 mls/hr IV ONCE PRN; Protocol PRN Reason: Adult Acute Hypoglycemia Prot Insulin Human Lispro (Insulin Lispro 100 Unit/1 Ml) 0 unit SUBCUT WM&BEDTIME [facility]; Protocol Last Admin: 08/10/21 11:33 Dose: 8 unit Documented by: Isosorbide Mononitrate (Isosorbide Mononitrate Er 30 Mg Tablet) 30 mg PO BID [facility] Last Admin: 08/10/21 07:28 Dose: 30 mg Documented by: Magnesium Hydroxide (Magnesium Hydroxide 30 Ml Udc) 30 ml PO DAILY PRN PRN Reason: CONSTIPATION Last Admin: 08/06/21 10:34 Dose: 30 ml Documented by: Metolazone (Metolazone 5 Mg Tablet) 10 mg PO DAILY [facility] Last Admin: 08/10/21 07:28 Dose: 10 mg Documented by: Metoprolol Tartrate (Metoprolol Tartrate 50 Mg Tablet) 50 mg PO BID@0900,2100 [facility] Last Admin: 08/10/21 09:37 Dose: 50 mg Documented by: Ondansetron HCl (Ondansetron 2 Mg/Ml Sdv 2 Ml) 4 mg IVP Q6H PRN PRN Reason: NAUSEA AND VOMITING Pantoprazole Sodium (Pantoprazole Dr 40 Mg Tablet) 40 mg PO DAILY@12 [facility] Last Admin: 08/10/21 11:33 Dose: 40 mg Documented by: Potassium Chloride (Potassium Chloride Er 20 Meq Tablet) 20 meq PO DAILY [facility] Last Admin: 08/10/21 07:28 Dose: 20 meq Documented by: Prazosin HCl (Prazosin 1 Mg Capsule) 1 mg PO BID [facility] Last Admin: 08/10/21 07:28 Dose: 1 mg Documented by: Ranolazine (Ranolazine (12hr) 500 Mg Tablet) 500 mg PO BID [facility] Last Admin: 08/10/21 07:27 Dose: 500 mg Documented by: Temazepam (Temazepam 15 Mg Capsule) 15 mg PO BEDTIME PRN PRN Reason: INSOMNIA Last Admin: 08/07/21 22:28 Dose: 15 mg Documented by: Vitals/I&O/Wt Last Vital Signs Temp 97.9 F 08/10/21 15:26 Pulse 56 L 08/10/21 16:42 Resp 15 08/10/21 16:37 BP 144/54 08/10/21 15:26 Pulse Ox 96 08/10/21 16:37 08/10/21 08/10/21 08/10/21 06:59 14:59 22:59 Intake Total 300 / 1008 472 / 472 Output Total 300 / 1550 250 / 250 Balance 0 / -542 222 / 222 Weight last 48 hrs Weight 166 lb 4.8 oz Physical Exam Narrative: EXAM NARRATIVE: GENERAL: The patient is alert and oriented times three. Not in any acute distress. HEENT: No significant pallor, icterus or lymphadenopathy.Oral cavity: There are no mucous membrane lesions. NECK: Trachea appears to be central. No masses noted. No JVD or thyromegaly appreciated. RESPIRATORY: Chest is symmetrical. No intercostals muscle retraction or any accessory muscle activation. There is no chest wall tenderness. Breath sounds ar e heard bilaterally. No rales or rhonchi heard. No evidence of any consolidation. BREASTS: Deferred. HEART: The heart sounds are normal. No S3 or S4. Short systolic murmur in the left sternal border. No pericardial rub ABDOMEN: No vessel pulsations or distention. No tenderness. No organomegaly a ppreciated. Bowel sounds are normally heard. : Deferred. RECTAL: Deferred. LYMPHATIC: No lymphadenopathy noted in the neck or groin. EXTREMITIES: No edema or cyanosis. No clubbing. MUSCULOSKELETAL: No acute joint deformities or swelling SKIN: There are no significant rashes or ecchymosis NEUROPSYCHIATRIC: The patient is alert and oriented x3. Appears to be in a good mood. No tremors or rigidity noted. Urinary Catheter Management^: Feng: Cath Placed During This Visit: yes, but has since been removed by the nurse Reason for Continuing Indwelling Catheter: Not indwelling catheter Urinary Catheter Date of Insertion: 08/05/21 Urinary Catheter Time of Insertion: 16:10 Date Urinary Catheter Removed: 08/09/21 Time Urinary Catheter Discontinued: 14:40 Data : 08/11/21 02:13 08/11/21 02:13 Other Labs: Laboratory Last Values WBC 9.1 10^3/uL (4.0-10.0) 08/10/21 04:16 RBC 2.92 10^6/uL (4.1-5.3) L 08/10/21 04:16 Hgb 8.6 g/dL (11.7-16.6) L 08/10/21 04:16 Hct 28.0 % (42.0-52.0) L 08/10/21 04:16 MCV 95.9 fl (80-94) H 08/10/21 04:16 MCH 29.5 pg (28.0-34.0) 08/10/21 04:16 MCHC 30.7 g/dL (30.0-36.0) 08/10/21 04:16 RDW 13.7 % (12.1-15.1) 08/10/21 04:16 Plt Count 364 10^3/cmm (130-400) 08/10/21 04:16 MPV 10.3 fL (7.4-10.4) 08/10/21 04:16 Neut % (Auto) 71.8 % 08/10/21 04:16 Lymph % (Auto) 12.8 % 08/10/21 04:16 Emanuel % (Auto) 12.0 % 08/10/21 04:16 Eos % (Auto) 1.9 % 08/10/21 04:16 Baso % (Auto) 0.3 % 08/10/21 04:16 Neut # (Auto) 6.54 10^3/uL (1.8-7.7) 08/10/21 04:16 Lymph # (Auto) 1.2 10^3/uL (0.8-4.8) 08/10/21 04:16 Emanuel # (Auto) 1.1 10^3/uL (0.2-0.9) H 08/10/21 04:16 Eos # (Auto) 0.2 10^3/uL (0.0-0.8) 08/10/21 04:16 Baso # (Auto) 0.0 10^3/uL (0.0-0.1) 08/10/21 04:16 Nucleated RBC % (auto) 0 % 08/10/21 04:16 Nucleated RBCs # 0.0 /100WBC 08/10/21 04:16 APTT 47.9 SECONDS (23.9-36.7) H 08/09/21 13:05 Specimen Type Arterial 08/05/21 12:48 Sample Site Brachial, left 08/05/21 12:48 ABG pH 7.31 (7.35-7.45) L 08/05/21 12:48 ABG pCO2 39.9 mmHg (35-45) 08/05/21 12:48 ABG pO2 81.9 mmHg (80.0-100.0) 08/05/21 12:48 ABG HCO3 19.9 mmol/L (22-26) L 08/05/21 12:48 ABG O2 Saturation 95.5 08/05/21 12:48 ABG Base Excess -6.0 mmol/L (-2.0-2.0) L 08/05/21 12:48 Brian Test N/a 08/05/21 12:48 A-a O2 Gradient 23.9 mmHg (5-10) H 08/05/21 12:48 Hematocrit 33.1 % (42-52) L 08/05/21 12:48 Hgb O2 Saturation 94.7 % (95-100) L 08/05/21 12:48 Carboxyhemoglobin 0.5 %THgb (0.4-20.1) 08/05/21 12:48 Methemoglobin 0.3 % (0.4-1.5) L 08/05/21 12:48 Total Hemoglobin 10.8 g/dL (14-18) L 08/05/21 12:48 Sodium 134.0 mmol/L (131-143) 08/05/21 12:48 Potassium 5.3 mmol/L (3.5-5.0) H 08/05/21 12:48 Glucose 291.0 mg/dL (70-115) H 08/05/21 12:48 Ionized Calcium 1.2 mmol/L (1.1-1.4) 08/05/21 12:48 O2 Delivery Device Bipap 08/05/21 12:48 O2 Liters/Min 8.0 % 08/05/21 10:43 FiO2 45.0 % 08/05/21 12:48 Manager Office Services ID Ed 08/05/21 12:48 Sodium 141 mmol/L (136-145) 08/10/21 04:16 Potassium 4.2 mmol/L (3.5-5.1) 08/10/21 04:16 Chloride 103 mmol/L (98-107) 08/10/21 04:16 Carbon Dioxide 23 mmol/L (22-29) 08/10/21 04:16 Anion Gap 19.2 (5-19) H 08/10/21 04:16 BUN 44 mg/dL (8-23) H 08/10/21 04:16 Creatinine 3.0 mg/dL (0.7-1.2) H 08/10/21 04:16 GFR Calculation 21.0 mL/min (90-130) L 08/10/21 04:16 Glucose 130 mg/dL (65-115) H 08/10/21 04:16 POC Glucose 184 mg/dL (70-110) H 08/10/21 15:32 Calculated Osmolality 305 mOsm/kg (285-295) H 08/10/21 04:16 Lactic Acid 1.4 mmol/L (0.5-2.2) 08/05/21 11:27 Calcium 7.7 mg/dL (8.5-10.5) L 08/10/21 04:16 Phosphorus 5.0 mg/dL (2.5-4.5) H 08/07/21 06:25 Magnesium 2.0 mg/dL (1.7-2.3) 08/10/21 04:16 Total Bilirubin 0.2 mg/dL (0.15-1.2) 08/08/21 03:06 AST 14 U/L (0-40) 08/08/21 03:06 ALT 15 U/L (0-41) 08/08/21 03:06 Alkaline Phosphatase 80 IU/L (40-130) 08/08/21 03:06 Creatine Kinase 227 U/L (39-308) 08/05/21 12:55 Troponin T Baseline 3037 ng/L (0-15) H* 08/05/21 10:30 Troponin T 120 Minute 2872 ng/L (0-15) H 08/05/21 12:55 Delta Troponin T -165 ABS# (0-10) L 08/05/21 12:55 Troponin T Hi Sens 6Hr 3104 ng/L (0-15) H 08/05/21 16:30 Troponin T Hi Sens 6Hr Delta 67 ng/L (0-12) H* 08/05/21 16:30 Total Protein 5.9 g/dL (6.6-8.7) L 08/08/21 03:06 Albumin 2.9 g/dL (3.5-5.2) L 08/08/21 03:06 Globulin 3.0 g/dL (1.3-4.6) 08/08/21 03:06 TSH 1.71 uIU/mL (0.27-4.20) 08/05/21 12:55 Urine Color Yellow (Yellow) 08/05/21 16:15 Urine Appearance Clear (CLEAR) 08/05/21 16:15 Urine pH 5 (5-7) 08/05/21 16:15 Ur Specific [place] 1.020 (1.005-1.030) 08/05/21 16:15 Urine Protein 3+ (Negative) H 08/05/21 16:15 Urine Glucose (UA) 2+ (Normal) H 08/05/21 16:15 Urine Ketones Negative (Negative) 08/05/21 16:15 Urine Blood Neg (Negative) 08/05/21 16:15 Urine Nitrate Negative (Negative) 08/05/21 16:15 Urine Bilirubin Neg (Negative) 08/05/21 16:15 Urine Urobilinogen Norm mg/dL (Negative) 08/05/21 16:15 Ur Leukocyte Esterase Negative (Negative) 08/05/21 16:15 Urine RBC None /hpf (0-2) 08/05/21 16:15 Urine WBC 0-4 /hpf (0-5) H 08/05/21 16:15 Ur Squamous Epith Cells None /hpf (0-5) 08/05/21 16:15 Amorphous Sediment Trace /hpf 08/05/21 16:15 Urine Bacteria None /hpf (NONE) 08/05/21 16:15 Ur Random Sodium 39 mmol/L 08/05/21 16:15 Urine Creatinine 102 mg/dL (39-259) 08/05/21 16:15 Micro: Microbiology 08/05/21 11:27 Blood Culture - Final Blood NO GROWTH AFTER 5 DAYS 08/05/21 11:27 Blood Culture - Final Blood NO GROWTH AFTER 5 DAYS A&P Assessment and plan (1) CHF (congestive heart failure): Clinically seems to be getting compensated. Status: Acute Qualifiers: Heart failure chronicity: acute Heart failure type: combined systolic and diastolic Qualified Code(s): I50.41 - Acute combined systolic (congestive) and diastolic (congestive) heart failure (2) Atherosclerotic heart disease of [place] coronary artery with other forms of angina pectoris: Patient status post PCI, currently seems to be stable. May continue on the current medications. Status: Acute (3) Acute kidney injury superimposed on CKD: The kidney function seems to have stabilized. Status: Resolved (4) Essential hypertension: Currently normotensive. We will continue on the current medications. Status: Chronic (5) Diabetes mellitus, type II: Will be continuing the aggressive blood sugar control measures Status: Acute Qualifiers: Diabetes mellitus complication status: with hyperglycemia Diabetes mellitus usp insulin use: without usp use Qualified Code(s): E11.65 - Type 2 diabetes mellitus with hyperglycemia (6) Hypercholesterolemia: May continue on the current medications. Status: Acute (7) Anemia, iron deficiency: Hemoglobin stable. May continue on the current treatment measures. Status: Acute Qualifiers: Iron deficiency anemia type: other iron deficiency Qualified Code(s): D50.8 - Other iron deficiency anemias Additional A&P Information You the patient continues to remain stable, may be discharged home tomorrow. We will be closely monitoring the urine output. Based on the clinical progress, further recommendations will be made Attestations Medical Necessity Statement*: Patient requires continued hospital stay for close monitoring and further management Coding Level of Care Code Acute Sloop Captain for g Fwd Diagnoses CHF (congestive heart failure) I50.41 Heart failure chronicity: acute Heart failure type: combined systolic and diastolic Atherosclerotic heart disease of [place] coronary artery with other forms of angina pectoris I25.118 Acute kidney injury superimposed on CKD N17.9; N18.9 Essential hypertension I10 Diabetes mellitus, type II E11.65 Diabetes mellitus complication status: with hyperglycemia Diabetes mellitus terminal supervisor insulin use: without terminal supervisor use Hypercholesterolemia E78.00 Anemia, iron deficiency D50.8 Iron deficiency anemia type: other iron deficiency
[2021-08-10] MEDS: temazepam 15 mg Capsule PO (19:43)
[2021-08-10] MEDS: enoxaparin 30 mg/0.3 mL Syringe SUBCUT (19:43)
[2021-08-10 20:00] LABS: Glucose Point of Care 269 mg/dL (70-110)
[2021-08-11] VITALS (10 sets, daily range): BP systolic 124–146; BP diastolic 50–61; PULSE 55–64; RESP 14–18; TEMP 36.2–36.7; O2SAT 86–98
[2021-08-11 02:44] LABS: Basophils % 0.4 %; Eosinophils # 0.2 10^3/uL (0.0-0.8); Eosinophils % 2.9 %; Hematocrit 28.6 % (42.0-52.0); Hemoglobin 8.6 g/dL (11.7-16.6); Lymphocytes # 1.2 10^3/uL (0.8-4.8); Lymphocytes % 14.6 %; Mean Corpuscular HGB Conc 30.1 g/dL (30.0-36.0); Mean Corpuscular Hemoglobin 29.2 pg (28.0-34.0); Mean Corpuscular Volume 96.9 fl (80-94); Mean Platelet Volume 10.2 fL (7.4-10.4); Monocytes % 12.5 %; Neutrophils # 5.41 10^3/uL (1.8-7.7); Neutrophils % 68.3 %; Nucleated Red Blood Cells % 0 %; Platelet Count 363 10^3/cmm (130-400); Red Blood Count 2.95 10^6/uL (4.1-5.3); Red Cell Distribution Width 13.8 % (12.1-15.1); White Blood Count 7.9 10^3/uL (4.0-10.0)
--- NOTE | 2021-08-11 03:03 | PC.NURSE ---
Patient voided in toilet x2. Unable to measure urine output. Patient educated on importance of intake and output measurement.
[2021-08-11 03:05] LABS: Anion Gap 16.4 (5-19); Blood Urea Nitrogen 46 mg/dL (8-23); Calcium 7.7 mg/dL (8.5-10.5); Carbon Dioxide 26 mmol/L (22-29); Chloride 102 mmol/L (98-107); Glomerular Filtration Rate 22.7 mL/min (90-130); Glucose 125 mg/dL (65-115); Magnesium 2.1 mg/dL (1.7-2.3); Osmolality Calculated 303 mOsm/kg (285-295); Potassium 4.4 mmol/L (3.5-5.1); Sodium 140 mmol/L (136-145)
[2021-08-11] MEDS: clopidogrel 75 mg Tablet PO (04:21)
[2021-08-11] MEDS: aspirin 81 mg EC Tablet PO (04:22)
[2021-08-11 06:33] LABS: Glucose Point of Care 155 mg/dL (70-110)
[2021-08-11] MEDS: ipratropium-albuterol 3 mL Neb INHALATION ×2 (08:20→12:43)
[2021-08-11] MEDS: prazosin 1 mg Capsule PO (09:19)
[2021-08-11] MEDS: docusate sodium 100 mg Capsule PO (09:19)
[2021-08-11] MEDS: isosorbide mononitrate ER 30 mg Tablet PO (09:19)
[2021-08-11] MEDS: ranolazine (12HR) 500 mg Tablet PO (09:19)
[2021-08-11] MEDS: ferrous sulfate EC 325 mg Tablet PO (09:20)
[2021-08-11] MEDS: atorvastatin 40 mg Tablet 80 MG PO (09:20)
[2021-08-11] MEDS: hyDRALAzine 50 mg Tablet 100 MG PO (09:20)
[2021-08-11] MEDS: bumetanide 1 mg Tablet 2 MG PO (09:20)
[2021-08-11] MEDS: potassium chloride ER 20 mEq Tablet PO (09:21)
[2021-08-11] MEDS: metOLazone 5 MG Tablet 10 MG PO (09:21)
[2021-08-11] MEDS: insulin lispro 100 unit/1 mL SUBCUT (09:31)
--- NOTE | 2021-08-11 09:46 | PC.CHAP ---
Pastoral Care Encounter/Spiritual Assessment Type of Contact [] Declined hand hide stretcher visit [] Patient/Family/Request visit [] Outpatient visit [] Follow-up visit [] Physician referral [] Code/Alert [x] Routine visit [] Staff referral [] Actively dying [] Patient sleeping [x] Family support [] [] Out of room [] Palliative care [] [] Receiving care in room [] Pre-surgical visit [] Trauma [] Long length of stay [] ICU visit [] Other: Relational/Emotional Strength [] Patient feels connected with others/family/visitors/staff [] Distress [] Loneliness/isolation [] Abandonment Spirituality of Patient [x] Person of Ileana [x] Attends Faith of their Ileana [] Believes in Prayer [] Reads Bible or Bahai materials [] There are Spiritual issues to be addressed Estate Administrator Interventions [x] Prayer [] Active listening [] Non-anxious presence [] Spiritual/emotional support [] Crisis/trauma care [] Spiritual counseling [] Bereavement support [] Provided bereavement packet [] Provided Bible/devotional materials [] Provided toy/stuffed animal, coloring book to patient or family member [] Provided Communion [] Anointing/[place] [] Salvation [x] Completed spiritual assessment [] Other: Impact on Illness or Injury [] Angry [] Fearful [] Anxious [] Often cries [] Exhaustion [] Unable to work [] Unable to attend rastafarian [] Unable to walk/stand [] Unable to read [] Unable to drive [] Unable to eat/drink [] Unable to sleep [] Unable to be with family [] Patient intubated [] Other: Summary hand hide stretcher has been present with patient and .. from ICU.. coloring good and feeling so much stronger.. possible ready to return home Time spent with patient 10 min
[2021-08-11] MEDS: metoprolol tartrate 50 mg Tablet PO (10:07)
[2021-08-11 11:42] LABS: Glucose Point of Care 267 mg/dL (70-110)
--- NOTE | 2021-08-11 11:52 | PM.DCS ---
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 angina pectoris: Status: Acute (3) Acute kidney injury superimposed on CKD: Status: Resolved (4) Essential hypertension: Status: Chronic (5) Diabetes mellitus, type II: Status: Acute Qualifiers: Diabetes mellitus complication status: with hyperglycemia Diabetes mellitus senior living insulin use: without terminal supervisor use Qualified Code(s): E11.65 - Type 2 diabetes mellitus with hyperglycemia (6) Hypercholesterolemia: Status: Acute (7) Anemia, iron deficiency: Status: Acute Qualifiers: Iron deficiency anemia type: other iron deficiency Qualified Code(s): D50.8 - Other iron deficiency anemias Reason for Visit Reason for Visit: RESPIRATORY DISTRESS Hospital Course Hospital Course HPI as per Dr. Mclaughlin Luis Alfredo Thompson is a 66 year old male with past medical history of coronary artery disease, chronic kidney disease, diabetes, COPD, tobacco abuse, pretension, dyslipidemia who was discharged yesterday from this hospital after hospitalization for coronary artery disease, status post cardiac catheterization and drug-eluting stent placement to SVG to PDA, associated acute kidney injury suspected to be secondary to contrast-induced nephropathy. Yesterday the patient did not want to stay longer to be monitored and be managed accordingly. Today he is returning with severe shortness of breath. The worsening started in the evening and progressively got worse and became very severe in the morning. From the description of the patient's the patient experienced PND and orthopnea. No associated chest pain, cough, fever or chills, nausea or vomiting. In the emergency room the patient was found to be in severe respiratory distress and hypoxia. We will started on BiPAP. Chest x-ray revealed CHF. He has elevated BNP and severely elevated troponin level. EKG without ST elevation. Unchanged since his previous EKG. Please see previous discharge summary, progress notes, procedure notes, and H&P for more details regarding previous hospitalization. Course: -Patient recently had stents placed July 31, 2021 and was discharged home. He developed contrast-induced nephropathy and came back to the hospital with acute renal failure and pulmonary edema/heart failure exacerbation due to volume overload. Nitroglycerin drip was also used for management. Nephrology was consulted. Patient was diuresed with Lasix. During his hospital stay he also had hypertensive urgency which was controlled with medication adjustments. Blood pressure now is in an acceptable range. Repeat echo was done which showed decreased EF. He was seen by cardiology and decision made to manage conservatively at this point. PT was placed on heparin drip which was d/c 08/09/2021.Imdur and hydralazine and small dose of beta-felicitas was also added. Nephrology saw the patient have signed off at this point. Patient did not require dialysis this hospital admission. Dr. Ku states patient would need very close follow up with nephrology (Dr. Anaya) as an outpatient and would need a sooner appointment than October 28 (previously scheduled). He was initially also hyperkalemic at admission which is now resolved. He was folllowed by cardiology. Patient was discharged home in a stable condition with follow up appointment with nephrology, pulmononology (for possible underlying COPD). He was also given inhalers at discharge. was updated in detail. Please see latest progress note for more details. Physical Exam Narrative: EXAM NARRATIVE: General: Alert oriented x3, patient seen sitting up in recliner HEENT: Normocephalic, atraumatic, EOMI, breathing 2L NC Cardio: Regular rate rhythm, normal S1-S2, no murmurs rubs gallops, sternotomy scar present. Respiratory: Good air entry, lungs relatively clear to auscultation today with no crackles at bases. No wheezes, no ronchi GI: Abdomen soft, nontender, nondistended, bowel sounds + Behavior: Appropriate and cooperative Extremities: no LE edema, no cyanosis Urinary Catheter Management^: Feng: Cath Placed During This Visit: yes, but has since been removed by the nurse Reason for Continuing Indwelling Catheter: Not indwelling catheter Urinary Catheter Date of Insertion: 08/05/21 Urinary Catheter Time of Insertion: 16:10 Date Urinary Catheter Removed: 08/09/21 Time Urinary Catheter Discontinued: 14:40 Discharge Data Data Completed and Pending: Completed Studies During Hospitalization Category Date Time Status XR chest 1V stephen ble [id number] Stat Exams 08/05/21 10:41 Completed CV echo limited 9 3308 Stat Ultrasound 08/05/21 12:03 Completed Labs from last 24 hours 08/11/21 08/11/21 08/11/21 11:38 06:26 02:13 WBC RBC Hgb Hct MCV MCH MCHC RDW Plt Count MPV Neut % (Auto) Lymph % (Auto) [place] % (Auto) Eos % (Auto) Baso % (Auto) Neut # (Auto) Lymph # (Auto) [place] # (Auto) Eos # (Auto) Baso # (Auto) Nucleated RBC % (a uto) Nucleated RBCs # Sodium 140 Potassium 4.4 Chloride 102 Carbon Dioxide 26 Anion Gap 16.4 BUN 46 H Creatinine 2.8 H GFR Calculation 22.7 L Glucose 125 H POC Glucose 267 H 155 H Calculated Osmolal ity 303 H Calcium 7.7 L Magnesium 2.1 08/11/21 08/10/21 08/10/21 02:13 19:39 15:32 WBC 7.9 RBC 2.95 L Hgb 8.6 L Hct 28.6 L MCV 96.9 H MCH 29.2 MCHC 30.1 RDW 13.8 Plt Count 363 MPV 10.2 Neut % (Auto) 68.3 Lymph % (Auto) 14.6 [place] % (Auto) 12.5 Eos % (Auto) 2.9 Baso % (Auto) 0.4 Neut # (Auto) 5.41 Lymph # (Auto) 1.2 [place] # (Auto) 1.0 H Eos # (Auto) 0.2 Baso # (Auto) 0.0 Nucleated RBC % (a uto) 0 Nucleated RBCs # 0.0 Sodium Potassium Chloride Carbon Dioxide Anion Gap BUN Creatinine GFR Calculation Glucose POC Glucose 269 H 184 H Calculated Osmolal ity Calcium Magnesium Vitals: Last Vital Signs Temp 97.2 F L 08/11/21 08:00 Pulse 58 L 08/11/21 08:25 Resp 18 08/11/21 08:20 BP 146/59 08/11/21 08:00 Pulse Ox 95 08/11/21 08:20 Discharge Plan Discharge Patient Disposition: Home Condition: Stable Prescriptions: New atorvastatin 40 mg Tablet 80 mg PO DAILY 30 Days Qty: 60 RF: 0 isosorbide mononitrate 30 mg Tablet Extended Release 24 Hr 30 mg PO BID 30 Days Qty: 60 RF: 0 bumetanide 1 mg Tablet 2 mg PO DAILY 30 Days Qty: 30 RF: 0 metolazone 5 mg Tablet 10 mg PO DAILY 30 Days Qty: 30 RF: 0 Klor-Con M20 20 mEq Tablet,Er Particles/Crystals 20 meq PO DAILY 30 Days Qty: 30 RF: 0 metoprolol tartrate 50 mg Tablet 50 mg PO BID@0900,2100 30 Days Qty: 60 RF: 0 Symbicort 80-4.5 mcg/actuation HFA aerosol inhaler 2 inh inhalation BID 30 Days Qty: 10.2 RF: 0 Continued ICaps AREDS [id number],[id number] capsule 1 cap PO DAILY RF: 0 loratadine [Claritin] 10 mg tablet 10 mg PO DAILY RF: 0 Gas Relief (simethicone) 250 mg capsule 250 mg PO QID PRN (Reason: Abdominal Discomfort) RF: 0 nitroglycerin [Nitrostat] 0.4 mg tablet, sublingual 0.4 mg sublingual Q5M PRN (Reason: chest pain) Qty: 25 RF: 3 pantoprazole 40 mg tablet,delayed release (DR/EC) 40 mg PO DAILY@12 RF: 0 ferrous sulfate 325 mg (65 mg iron) Tablet,Delayed Release (Dr/Ec) 325 mg PO BIDWM Qty: 60 RF: 0 ranolazine 500 mg Tablet Extended Release 12 Hr 500 mg PO BID Qty: 60 RF: 0 glimepiride 2 mg tablet 2 mg PO BID Qty: 60 RF: 0 clopidogrel 75 mg tablet 75 mg PO QAM 30 Days Qty: 30 RF: 0 aspirin 81 mg Tablet,Delayed Release (Dr/Ec) 81 mg PO QAM 30 Days Qty: 30 RF: 0 albuterol sulfate [ProAir HFA] 90 mcg/actuation Hfa Aerosol Inhaler 2 puff INHALATION Q4H PRN (Reason: Shortness Of Breath) RF: 0 ascorbic acid (vitamin C) [Vitamin C] 500 mg Tablet 500 mg PO QAM RF: 0 calcium carbonate 500 mg calcium (1,250 mg) Tablet,Chewable 500 mg PO PRN PRN (Reason: Heartburn) RF: 0 vitamin E 400 unit Capsule 400 unit PO QAM RF: 0 hydralazine 50 mg tablet 100 mg PO TID Qty: 405 RF: 3 Discontinued isosorbide mononitrate 120 mg tablet extended release 24 hr 60 mg PO BID RF: 0 rosuvastatin 5 mg tablet 5 mg PO DAILY@12 RF: 0 nifedipine 30 mg Tablet Extended Release 24hr 90 mg PO DAILY Qty: 90 RF: 2 clonidine HCl 0.2 mg tablet 0.1 mg PO BID PRN (Reason: BP>160/90) Qty: 0 RF: 0 furosemide [Lasix] 20 mg tablet 20 mg PO DAILY PRN (Reason: edema) Qty: 30 RF: 0 No Action prazosin 1 mg capsule 1 mg PO BID Qty: 60 RF: 6 Discharge Orders: Discharge Order (Routine); Ordered 08/11/21 Ordered By: Stephani Stephens Other Ambulatory Orders: Basic Metabolic Panel (Routine) Timeframe: [id number] Facility: [facility] - Location: Lab - Main Lab Ordered By: Stephani Stephens DME: Oxygen (Order) Location: None Selected Ordered By: Stephani Stephens DME: Walker (Order) Location: None Selected Ordered By: Stephani Stephens Referrals: Paulino Weiss MD [Physician] - 08/21/21 10:00 am (Please follow-up with Dr. Weiss on at 10:00A.M. If you have any questions or need to reschedule. Please call ) Gregg Anaya MD [Referring] - 7-10 days (Gabriella from [facility] will contact you schedule your follow-up appointment. If you haven't heard from her by tomorrow morning. Please call ) Francis Israel M.D [Physician] - 09/15/21 1:30 pm (Please follow-up with Dr. Israel on Sep.15 at 1:30P.M. If you have any questions or need to reschedule. Please call ) Stacey Boone FNP [Nurse Practitioner] - 08/19/21 3:00 pm (Please follow-up with Stacey Boone on Aug 19 at 3:00P.M. If you have any questions or need to reschedule. Please call ) Discharge Diet: Cardiac and Low Salt Discharge Activity: Oxygen as instructed Patient Instructions: Heart Failure (DC), Hyperkalemia (DC), CHF Stoplight Discharge Attestations Time Spent in Discharge Care*: less than 30 min Quality Metrics Clinical Quality Measures During this hospital stay, did patient experience: None Coding Level of Care Code Acute Chg FW DC note Diagnoses CHF (congestive heart failure) I50.41 Heart failure chronicity: acute Heart failure type: combined systolic and diastolic Atherosclerotic heart disease of [place] coronary artery with other forms of angina pectoris I25.118 Acute kidney injury superimposed on CKD N17.9; N18.9 Essential hypertension I10 Diabetes mellitus, type II E11.65 Diabetes mellitus complication status: with hyperglycemia Diabetes mellitus terminal supervisor insulin use: without terminal supervisor use Hypercholesterolemia E78.00 Anemia, iron deficiency D50.8 Iron deficiency anemia type: other iron deficiency
== END 2021-08-11 15:30 | disposition home or self-care (01) | DRG 280 ==
LOC: ER 10:55 → ICU 14:07 → CSU 08-06 18:15
PROVIDERS: Internal Medicine; Internal Medicine Nephrology; Admitting Provider Internal Medicine; Emergency Provider Family Medicine; PCP Internal Medicine; Visit Provider Internal Medicine
DX: I21.4 Non-ST elevation (NSTEMI) myocardial infarction (principal); I50.43 Acute on chronic combined systolic (congestive) and diastolic (congestive) heart failure; J96.01 Acute respiratory failure with hypoxia; I13.0 Hypertensive heart and chronic kidney disease with heart failure and stage 1 through stage 4 chronic kidney disease, or unspecified chronic kidney disease; N17.9 Acute kidney failure, unspecified; N14.1 Nephropathy induced by other drugs, medicaments and biological substances; T50.8X5A Adverse effect of diagnostic agents, initial encounter; E11.22 Type 2 diabetes mellitus with diabetic chronic kidney disease; N18.30 Chronic kidney disease, stage 3 unspecified; I16.0 Hypertensive urgency; I25.118 Atherosclerotic heart disease of native coronary artery with other forms of angina pectoris; J44.9 Chronic obstructive pulmonary disease, unspecified; E78.00 Pure hypercholesterolemia, unspecified; D50.9 Iron deficiency anemia, unspecified; F17.200 Nicotine dependence, unspecified, uncomplicated; E78.5 Hyperlipidemia, unspecified; E87.5 Hyperkalemia; Z79.84 Long term (current) use of oral hypoglycemic drugs; Z95.5 Presence of coronary angioplasty implant and graft; Z95.1 Presence of aortocoronary bypass graft; Z79.82 Long term (current) use of aspirin; Z79.02 Long term (current) use of antithrombotics/antiplatelets
CPT/HCPCS: 36415; 36416; 36600; 51702; 51798; 71045; 80048; 80051; 80053; 80069; 81001; 82330; 82550; 82575; 82805; 82962; 83605; 83735; 84300; 84443; 84484; 85025; 85730; 87040; 93005; 93308; 94640; 94660; 94664; 96372; 96374; 96375; 97110; 97161; 99291; J0610; J1644; J1650; J1815; J1940; J3490; J7611; Q3014

== ENCOUNTER 2021-08-15 12:07 | Outpatient (CLI) | payer MEDICARE, SELFPAY ==
[2021-08-15 12:50] LABS: Anion Gap 17.8 (5-19); Blood Urea Nitrogen 43 mg/dL (8-23); Calcium 8.2 mg/dL (8.5-10.5); Carbon Dioxide 28 mmol/L (22-29); Chloride 106 mmol/L (98-107); Glomerular Filtration Rate 35.5 mL/min (90-130); Glucose 149 mg/dL (65-115); Osmolality Calculated 318 mOsm/kg (285-295); Potassium 4.8 mmol/L (3.5-5.1); Sodium 147 mmol/L (136-145)
--- NOTE | 2021-08-18 08:36 | PC.SOCIAL ---
updated that his Creatinine Level is down to 1.9 which is an improvement. She verbalzed understanding.
== END 2021-08-15 12:08 | disposition home or self-care (01) ==
LOC: LAB 12:11
PROVIDERS: PCP Internal Medicine; Visit Provider Internal Medicine
DX: N18.30 Chronic kidney disease, stage 3 unspecified (principal)
CPT/HCPCS: 80048

== ENCOUNTER → 2021-08-22 12:14 | Outpatient (BNVA) | payer MEDICARE, SELFPAY | PROVIDERS: PCP Internal Medicine; Visit Provider Family Medicine Adult Medicine | DX: N18.30 Chronic kidney disease, stage 3 unspecified; E78.00 Pure hypercholesterolemia, unspecified; E11.65 Type 2 diabetes mellitus with hyperglycemia; D50.8 Other iron deficiency anemias; I25.118 Atherosclerotic heart disease of native coronary artery with other forms of angina pectoris; J44.9 Chronic obstructive pulmonary disease, unspecified; I50.41 Acute combined systolic (congestive) and diastolic (congestive) heart failure; R10.13 Epigastric pain; Z68.26 Body mass index [BMI] 26.0-26.9, adult; I13.0 Hypertensive heart and chronic kidney disease with heart failure and stage 1 through stage 4 chronic kidney disease, or unspecified chronic kidney disease; E11.22 Type 2 diabetes mellitus with diabetic chronic kidney disease | CPT/HCPCS: 80053; 80061; 83036; 85025 ==

== ENCOUNTER 2021-08-28 20:00 | Outpatient (CLI) | payer MEDICARE, SELFPAY | END 2021-08-28 20:01 | disposition home or self-care (01) | LOC: SLEEP 08-29 06:58 | PROVIDERS: PCP Internal Medicine; Visit Provider Internal Medicine Cardiovascular Disease | DX: G47.33 Obstructive sleep apnea (adult) (pediatric) (principal) | CPT/HCPCS: 95810 ==

== ENCOUNTER → 2021-09-09 10:37 | Outpatient (BNVA) | payer MEDICARE, SELFPAY | PROVIDERS: PCP Family Medicine Adult Medicine; Visit Provider Internal Medicine Nephrology | DX: N18.30 Chronic kidney disease, stage 3 unspecified (principal) | CPT/HCPCS: 80069; 81003; 82043; 82310; 83970; 85025 ==

== ENCOUNTER 2021-09-16 09:41 | Outpatient (RCR) | payer MEDICARE, SELFPAY | END 2021-10-06 23:59 | disposition home or self-care (01) | LOC: CR 09:41 | PROVIDERS: PCP Family Medicine Adult Medicine; Referring Provider Internal Medicine; Visit Provider Internal Medicine | DX: Z95.5 Presence of coronary angioplasty implant and graft (principal) | CPT/HCPCS: 93798 ==

== ENCOUNTER 2021-09-22 09:18 | Outpatient (CLI) | payer MEDICARE, SELFPAY ==
--- NOTE | 2021-09-22 09:45 | CT_ITS ---
WS: [id number] LDCT LUNG CANCER SCREENING HISTORY: lung screening TECHNIQUE: Axial imaging performed from the apices to 1 cm below the costophrenic angles. Coronal and sagittal reformats are submitted with axial MIP series. All CT scans at [facility] use at least one of these dose optimization techniques: automated exposure control; mA and/or kV adjustment per patient size (includes targeted exams where dose is matched to clinical indication); or iterativ e reconstruction. DLP: 76.19 mGy.cm DIvol: Mean CTDIvol: 1.60 (mGy) COMPARISON: None available. Diagnostic quality: Satisfactory Lung Nodules: No pulmonary nodule or endobronchial lesions. There is very mild interstitial thickenin g along the fissures and pleural surfaces. Lungs: Hyperinflated lungs with emphysema. Heart: Mildly enlarged heart. Prior CABG. Heavy calcification in the [place] coronary arteries. Athero sclerosis aorta. Other findings: No significant lymphadenopathy. CT/CT lung screening [id number] IMPRESSION: LUNG-RADS: 1-Negative FOLLOW UP: 12 Month: Continue annual screening with LDCT OTHER FINDINGS (S MODIFIER): None.
== END 2021-09-22 09:19 | disposition home or self-care (01) ==
LOC: RAD 09:22
PROVIDERS: PCP Family Medicine Adult Medicine; Visit Provider Internal Medicine Pulmonary Disease
DX: Z12.2 Encounter for screening for malignant neoplasm of respiratory organs (principal); F17.210 Nicotine dependence, cigarettes, uncomplicated
CPT/HCPCS: 71271

== ENCOUNTER 2021-09-24 07:57 | Outpatient (CLI) | payer MEDICARE, SELFPAY ==
--- NOTE | 2021-09-24 08:02 | US_ITS ---
WS: [id number] RENAL ULTRASOUND HISTORY: CKD STAGE 4 COMPARISON: 08/04/2021 TECHNIQUE: 2-D and color Doppler imaging of the kidney submitted. Right kidney: 10.8 cm x 4.5 cm x 6.4 cm. Normal size kidney. Mild increased echogenicity. There are a few scattered cortical cysts with the la rgest in the mid kidney measuring 1.9 x 1.6 x 1.4 cm. This cyst is slightly lobulated. No hydronephro sis. Left kidney: 10.5 cm x 5.1 cm x 6.2 cm. Normal size kidney with mild increased echogenicity. Benign-appearing cortical cysts. The largest fro m the mid kidney measures 2.6 x 2.6 x 2.0 cm. Aorta: Not imaged. Urinary Bladder: Moderately well distended urinary bladder. No intraluminal filling defect. Bilateral ureteral jets are identified. Prostate gland is very mildly heterogeneous and contain central calcif ication. Prostate measures 4.1 x 2.3 x 3.0 cm. US/US renal BI* [id number] IMPRESSION: 1. No hydronephrosis. 2. Normal size kidneys with mild chronic medical renal disease. 3. Bilateral renal cysts. No solid mass. 4. Mild prostate enlargement with central calcification.
== END 2021-09-24 07:58 | disposition home or self-care (01) ==
LOC: RAD 07:59
PROVIDERS: PCP Family Medicine Adult Medicine; Visit Provider Internal Medicine Nephrology
DX: N18.4 Chronic kidney disease, stage 4 (severe) (principal); Q61.02 Congenital multiple renal cysts; N40.0 Benign prostatic hyperplasia without lower urinary tract symptoms
CPT/HCPCS: 76770

== ENCOUNTER → 2021-10-13 11:28 | Outpatient (BNVA) | payer MEDICARE, SELFPAY | PROVIDERS: PCP Family Medicine Adult Medicine; Visit Provider Internal Medicine Cardiovascular Disease | DX: R07.9 Chest pain, unspecified (principal); R06.02 Shortness of breath; I13.0 Hypertensive heart and chronic kidney disease with heart failure and stage 1 through stage 4 chronic kidney disease, or unspecified chronic kidney disease; I50.23 Acute on chronic systolic (congestive) heart failure; I50.33 Acute on chronic diastolic (congestive) heart failure; I49.5 Sick sinus syndrome; D50.8 Other iron deficiency anemias; N18.30 Chronic kidney disease, stage 3 unspecified; E11.65 Type 2 diabetes mellitus with hyperglycemia; I25.5 Ischemic cardiomyopathy; E11.22 Type 2 diabetes mellitus with diabetic chronic kidney disease; Z87.891 Personal history of nicotine dependence | CPT/HCPCS: 80048; 83880; 99214; 99215 ==

== ENCOUNTER 2021-10-15 13:40 | Outpatient (RCR) | payer MEDICARE, SELFPAY | END 2021-11-06 23:59 | disposition home or self-care (01) | LOC: CR 13:40 | PROVIDERS: PCP Family Medicine Adult Medicine; Referring Provider Internal Medicine; Visit Provider Internal Medicine | DX: Z95.5 Presence of coronary angioplasty implant and graft (principal) | CPT/HCPCS: 93798 ==

== ENCOUNTER → 2021-10-16 10:23 | Outpatient (BNVA) | payer MEDICARE, SELFPAY | PROVIDERS: PCP Family Medicine Adult Medicine; Visit Provider Internal Medicine Pulmonary Disease | DX: J43.2 Centrilobular emphysema (principal); I50.41 Acute combined systolic (congestive) and diastolic (congestive) heart failure; N18.30 Chronic kidney disease, stage 3 unspecified; I25.118 Atherosclerotic heart disease of native coronary artery with other forms of angina pectoris; E11.65 Type 2 diabetes mellitus with hyperglycemia; Z87.891 Personal history of nicotine dependence | CPT/HCPCS: 99214 ==

== ENCOUNTER 2021-10-16 20:00 | Outpatient (CLI) | payer MEDICARE, SELFPAY | END 2021-10-16 20:01 | disposition home or self-care (01) | PROVIDERS: PCP Family Medicine Adult Medicine; Visit Provider Internal Medicine Cardiovascular Disease | DX: G47.33 Obstructive sleep apnea (adult) (pediatric) (principal) | CPT/HCPCS: 95811 ==

== ENCOUNTER 2021-10-30 10:01 | Outpatient (CLI) | payer MEDICARE, SELFPAY ==
--- NOTE | 2021-10-30 12:38 | PFTS_ITS ---
Date of Study:10/30/21 Date of Dictation: 10/31/2021 MECHANICS: Postbronchodilator forced vital capacity (FVC) is reduced. Postbronchodilator Forced expiratory volume in one second (FEV1) is moderately reduced 57% FEV1/FVC is reduced. There is significant response to bronchodilators FLOW VOLUME LOOP: Sloping of expiratory limb suggestive of airway obstruction . LUNG VOLUMES: Total lung capacity (TLC) is normal. Residual volume (RV) is normal. DIFFUSING CAPACITY FOR CARBON MONOXIDE: Moderately reduced 58% . INTERPRETATION: The postbronchodilator spirometry suggestive of moderate airway obstruction. Lung volumes are normal. There is moderate gas transfer defect. Clinical correlation recommended. MTDD
== END 2021-10-30 10:02 | disposition home or self-care (01) ==
PROVIDERS: PCP Family Medicine Adult Medicine; Visit Provider Internal Medicine Pulmonary Disease
DX: J44.9 Chronic obstructive pulmonary disease, unspecified (principal)
CPT/HCPCS: 94060; 94618; 94726; 94729; J7611

== ENCOUNTER 2021-11-06 12:46 | Outpatient (CLI) | payer MEDICARE, SELFPAY ==
--- NOTE | 2021-11-06 12:57 | CT_ITS ---
WS: [id number] CT ABDOMEN AND PELVIS NONCONTRAST HISTORY: STAGE 3 CKD, renal cysts. TECHNIQUE: Imaging performed through the abdomen and pelvis. Coronal and sagittal reformats are submi tted. All CT scans at [facility] use at least one of these dose optimization techniques: auto mated exposure control; mA and/or kV adjustment per patient size (includes targeted exams where dose is matched to clinical indication); or iterative reconstruction. DLP: 1009.07 mGy.cm COMPARISON: 02/13/2006 CT. Prior ultrasound 09/24/2021. Lower thorax: Focal area of groundglass attenuation at the RIGHT lung base. Heart is slightly enlarge d. Small hiatal hernia. Liver: Normal size liver. No mass or bile duct dilatation. Gallbladder: Normal gallbladder. Pancreas: Normal size and attenuation. Normal pancreatic duct. No pancreatitis or mass. Spleen: Normal. Adrenal glands: Adrenal glands are normal size. Both adrenal glands contain fat-containing masses. Th e RIGHT adrenal mass measures 13 x 14 mm. The LEFT adrenal mass measures 18 x 13 mm. These fat-contai viet masses are new since 2005. Right kidney: Mild perinephric stranding. There is an exophytic cyst from the lower pole measuring 14 mm. These cysts were recently described on a prior ultrasound. Left kidney: Normal size kidney with perinephric stranding. Multiple low-attenuation masses are ident ified. The largest measuring 28 x 27 mm from the lower pole. Aorta: Heavy calcified plaque within the aorta and proximal mesenteric arteries. No free fluid, intraperitoneal air or significant lymphadenopathy. GI tract: Prior appendectomy. Numerous diverticula in the distal colon. No evidence for acute diverti culitis. Abdominal wall: Small periumbilical hernias. Hernias contain fat only. Pelvis: No free fluid or adenopathy. Normally distended urinary bladder. Minimal prostate gland enlar gement with central gland calcification. Osseous structures: No lumbar spine fracture. No osteoblastic or osteolytic bone disease. CT/CT abdomen pelvis wo con [id number] IMPRESSION: 1. Bilateral low-attenuation renal masses. Renal ultrasound dated 09/24/2021 de scribed bilateral renal cysts. 2. Bilateral adrenal myelolipoma' s. 3. Prior appendectomy. 4. Extensive distal colonic diverticulosis without acute diverticulitis. 5. Small fat-containing abdominal wall hernias.
== END 2021-11-06 12:47 | disposition home or self-care (01) ==
LOC: RAD 12:48
PROVIDERS: PCP Family Medicine Adult Medicine; Visit Provider Registered Nurse
DX: N28.1 Cyst of kidney, acquired (principal); N18.32 Chronic kidney disease, stage 3b; N28.89 Other specified disorders of kidney and ureter; D17.79 Benign lipomatous neoplasm of other sites; Q42.8 Congenital absence, atresia and stenosis of other parts of large intestine; K57.30 Diverticulosis of large intestine without perforation or abscess without bleeding; K43.9 Ventral hernia without obstruction or gangrene; I50.23 Acute on chronic systolic (congestive) heart failure; G47.33 Obstructive sleep apnea (adult) (pediatric)
CPT/HCPCS: 74176; 80048; 87635; 99214

== ENCOUNTER 2021-11-07 14:09 | Outpatient (RCR) | payer MEDICARE, SELFPAY | END 2021-12-06 23:59 | disposition home or self-care (01) | LOC: CR 14:09 | PROVIDERS: PCP Family Medicine Adult Medicine; Referring Provider Internal Medicine; Visit Provider Internal Medicine | DX: Z95.5 Presence of coronary angioplasty implant and graft (principal) | CPT/HCPCS: 93798 ==

== ENCOUNTER → 2021-11-14 09:38 | Outpatient (BNVA) | payer MEDICARE, SELFPAY | PROVIDERS: PCP Family Medicine Adult Medicine; Visit Provider Family Medicine Adult Medicine | DX: E78.00 Pure hypercholesterolemia, unspecified (principal); E11.9 Type 2 diabetes mellitus without complications | CPT/HCPCS: 80053; 80061; 83036; 85025 ==

== ENCOUNTER → 2021-12-03 11:07 | Outpatient (BNVA) | payer MEDICARE, SELFPAY | PROVIDERS: PCP Family Medicine Adult Medicine; Visit Provider Internal Medicine Nephrology | DX: N17.9 Acute kidney failure, unspecified (principal); N18.30 Chronic kidney disease, stage 3 unspecified | CPT/HCPCS: 80069; 82043; 82310; 83970 ==

== ENCOUNTER 2021-12-05 21:13 | Inpatient (IN) | payer MEDICARE, SELFPAY ==
[2021-12-05] VITALS (12 sets, daily range): BP systolic 159–177; BP diastolic 74–94; PULSE 81–111; RESP 14–21; TEMP 36.4; O2SAT 93–98; BMI 26.6
--- NOTE | 2021-12-05 21:20 | XRR_ITS ---
PROCEDURE INFORMATION: Exam: XR Chest Exam date and time: 12/05/2021 9:41 PM Age: 66 years old Clinical indication: Sternal or substernal pain; Prior surgery; Surgery date: 6+ months; Surgery type: Cabg; Patient HX: C/O cp; Additional info: Chest pain TECHNIQUE: Imaging protocol: XR of the chest. Views: 1 view. COMPARISON: CR XR chest 1V portable [id number] 08/05/2021 10:46 AM FINDINGS: Lungs: Unremarkable. No consolidation. Pleural spaces: Unremarkable. No pleural effusion. No pneumothorax. Heart/Mediastinum: Unremarkable. No cardiomegaly. Bones/joints: Unremarkable. XR/XR chest 1V portable [id number] IMPRESSION: No acute findings.
--- NOTE | 2021-12-05 21:21 | ECG_ITS ---
[facility] Test Date: 2021-12-05 Pat Name: Luis Alfredo Thompson Department: Room: Gender: Male Ring Sorter: : 1955 Requested By: Phil Mason Order Number: [id number] Jack MD: Hemanth Hernandez M.D. Measurements Intervals [place] Rate: 88 P: 71 MO: 136 QRS: 2 QRSD: 138 T: 81 QT: 364 QTc: 441 Interpretive Statements SINUS RHYTHM WITH SINUS ARRHYTHMIA ST depression leads V4 through V6 and in leads I and L suggesting anterolateral ischemia. INTRAVENTRICULAR CONDUCTION DELAY [130+ ms QRS DURATION] SEPTAL MYOCARDIAL INFARCTION , OF INDETERMINATE AGE [40+ ms Q WAVE IN V1/V2] Compared to ECG 08/05/2021 16:21:20 Myocardial infarct finding now present Ventricular premature complex(es) no longer present T-wave abnormality no longer present Electronically Signed On 12-06-2021 8:14:38 CDT by Hemanth Hernandez M.D. [id number]
--- NOTE | 2021-12-05 21:37 | ED_ITS ---
HPI - General Adult General: Chief complaint: Chest Pain Stated complaint: cp Time Seen by Provider: 12/05/21 21:20 History of Present Illness: CC: Chest Pain HPI: This is a [66] yo patient hx of HTN, CAD s/p stents x 2 (SVG to PDA restent in 07/31 and LAD stent), bypass with (SVG to PDA and SVG to OM), DM, CKD, CHF presenting to the ED w/ acute onset of severe ongoing substernal chest pain x 3 hours without radiation. Pain is a very typical prior presentation of cardiac chest pain. Pain is not tearing in nature and does not radiate to the back. Endorse nausea but has no associated with vomiting or decreased PO intake. Denies any recent sympathomimetic drug use. Patient denies any cough. Denies palpitations, syncope symptoms. Pain not positional. Norecent immobility, janna ginna, unilateral leg swelling, or prior PE. Patient denies any orthopnea, paroxysmal nocturnal dyspnea, weight gain, or increased leg swellings. Patient tells me that he follows with Dr. Israel. Most recently he has had 2 stents that was placed in July 2021. Per cath report, patient still had multivessel diseases with significant left circumflex disease 07/2021. Onset: 3 hrs ago Duration: ongoing for the last 3 hrs Location: home Severity: moderate/severe Associated symptoms: Reports chest pain; Deny dyspnea, nausea, rash, palpitations or vomiting Review of Systems Const: Denies: fever(s) or chills Eyes: Denies: change in vision ENMT: Denies: mouth pain Card: Reports: chest pain; Denies: palpitations Resp: Denies: dyspnea or non-productive cough GI: Denies: abdominal pain, nausea, vomiting or diarrhea : Denies: dysuria Musc: Denies: extremity pain Skin/Breast: Denies: rash or new lesions Neuro: Denies: weakness in extremities Psych: Reports: other (Normal mood) Nura/Lymph: Denies: easy bruising [facility] PFSH: Medical History (Updated 12/06/21 @ 10:21 by Hemanth Hernandez MD) Abnormal abdominal CT scan Acute non-ST segment elevation myocardial infarction (NSTEMI) following previous myocardial infarction Acute on chronic systolic heart failure Allergic rhinitis due to allergen CAD (coronary artery disease) CHF (congestive heart failure) Chronic kidney disease CKD (chronic kidney disease) stage 3, GFR 30-59 ml/min COPD (chronic obstructive pulmonary disease) Diabetes mellitus, type II Dyspepsia Essential hypertension Heart failure, left, with LVEF 31-40% Hypercholesterolemia Palpitations Surgical History (Updated 12/06/21 @ 10:21 by Hemanth Hernandez MD) History of appendectomy History of coronary artery stent placement Hx of CABG Family History Father Cancer Other Diabetes Social History Smoking and tobacco status: former smoker Quit status (tobacco): has quit using tobacco Year quit tobacco: June 2021 Former quit date comment: 1.5ppd x 57years Alcohol intake: former Marital status: Number of children: 2 service: No Current gender identity: Male Physical Exam Const: COMMON NORMALS: alert HENMT: COMMON NORMALS: atraumatic HEAD & SCALP: atraumatic MOUTH: moist mucous membranes not abnormal Eye: COMMON NORMALS: EOMs intact bilaterally and conjunctivae normal CONJUNCTIVA: Yes conjunctivae normal Neck/C-Spine: COMMON NORMALS: full ROM and supple Resp: COMMON NORMALS: normal respiratory effort and clear to auscultation bilaterally AUSCULTATION: clear to auscultation bilaterally Cardio: COMMON NORMALS: regular rate RATE: regular rate GI: COMMON NORMALS: Soft to palpation and non-tender PALPATION: Yes Soft to palpation Extremity: COMMON NORMALS: full ROM Neuro: SENSORIUM/ORIENTATION: Yes alert MOTOR EXAM: No Abnormal motor strength present and Other motor observations present (no focal motor deficits) Psych: COMMON NORMALS: speech normal SPEECH: Yes normal speech MOOD & AFFECT: Yes euthymic mood Course Vital Signs: Vital signs: Vital Signs Temperature 98.3 F 12/06/21 04:00 Pulse Rate 74 12/06/21 16:00 Respiratory Rate 20 H 12/06/21 16:00 Blood Pressure 129/50 12/06/21 15:00 Pulse Oximetry 94 12/06/21 16:00 MDM - General Adult Medical Decision Making [66]yo patient w/ hx of HTN, CAD s/p stent x 2, CHF, DM presenting to the ED With acute substernal chest pain X 3 hrs with hx of similar prior pain. Curr ently moderate chest pain. Given History And Exam today I have moderate to high suspicion for ACS/ UA/NSTEMI. Today, I have NO suspicion for pneumothorax, pneumonia, pulmonary embolus, tamponade, aortic dissection or other emergent problem as a cause for this presentation. ECG did not show any signs of acute STEMI. Workup: ECG x 2, CXR, CBC, BMP, Troponin x 2 Intervention: ASA 325mg, SL nitroglycerin, morphine, nitroglyceirn drip Findings: ECG: No overt evidence of STEMI, no hyperacute T waves, localizable STD or T wave inversions. No evidence of Brugada?s sign, delta wave, epsilon wave, significantly prolonged QTc, or malignant arrhythmia. EKG similar to prior. NAZ in aVR and V1 seen from prior, STD in V4-V6/II/III/aVF seen from prior Troponin: 15 intially Dimer: wnl CXR: Without PTX, PNA, or widened mediastinum [10:45pm] On reassessment, the patient is currently chest pain free. S/p aspirin 325mg. Will defer antiplatelet and anticoagulation to the inpatient team. Chest pain from 10 to 4 after morphine, nitro drip, and ASA. Pending repeat troponin. HDS, AAOx3, no signs of respiratory distress, without refractory chest pain, no signs of malignant dysrhythmia on site monitor (VT/VF). Patient is noted have a BUN 85 with a creatinine of 3.3 up from baseline of 2.6. Patient's hemoglobin similar to baseline. The present time and do not suspect acute GI bleeding. Patient is AAOx3 unclear source of elevation for BUN. Patient will receive IVF with close follow-up. Disposition: Inpatient admission for uremia, chest pain and MARCELO on CKD. Lab Data : 12/06/21 03:28 12/06/21 16:18 Radiology Impressions Chest X-Ray 12/05/21 21:20 IMPRESSION: No acute findings. Laboratory Results WBC 12.6 10^3/uL (4.0-10.0) H 12/05/21 21:40 RBC 3.38 10^6/uL (4.1-5.3) L 12/05/21 21:40 Hgb 10.1 g/dL (11.7-16.6) L 12/05/21 21:40 Hct 32.0 % (42.0-52.0) L 12/05/21 21:40 MCV 94.7 fl (80-94) H 12/05/21 21:40 MCH 29.9 pg (28.0-34.0) 12/05/21 21:40 MCHC 31.6 g/dL (30.0-36.0) 12/05/21 21:40 RDW 13.7 % (12.1-15.1) 12/05/21 21:40 Plt Count 436 10^3/cmm (130-400) H 12/05/21 21:40 MPV 10.0 fL (7.4-10.4) 12/05/21 21:40 Neut % (Auto) 70.7 % 12/05/21 21:40 Lymph % (Auto) 15.6 % 12/05/21 21:40 [place] % (Auto) 9.5 % 12/05/21 21:40 Eos % (Auto) 3.0 % 12/05/21 21:40 Baso % (Auto) 0.5 % 12/05/21 21:40 Neut # (Auto) 8.90 10^3/uL (1.8-7.7) H 12/05/21 21:40 Lymph # (Auto) 2.0 10^3/uL (0.8-4.8) 12/05/21 21:40 [place] # (Auto) 1.2 10^3/uL (0.2-0.9) H 12/05/21 21:40 Eos # (Auto) 0.4 10^3/uL (0.0-0.8) 12/05/21 21:40 Baso # (Auto) 0.1 10^3/uL (0.0-0.1) 12/05/21 21:40 Nucleated RBC % (auto) 0 % 12/05/21:40 Nucleated RBCs # 0.0 /100WBC 12/05/21 21:40 D-Dimer 0.48 ug/mIFEU (0-0.59) 12/05/21 21:40 Sodium 140 mmol/L (136-145) 12/05/21 21:40 Potassium 5.4 mmol/L (3.5-5.1) H 12/05/21 21:40 Chloride 107 mmol/L (98-107) 12/05/21 21:40 Carbon Dioxide 15 mmol/L (22-29) L 12/05/21 21:40 Anion Gap 23.4 (5-19) H 12/05/21 21:40 BUN 85 mg/dL (8-23) H* 12/05/21 21:40 Creatinine 3.3 mg/dL (0.7-1.2) H 12/05/21 21:40 GFR Calculation 18.8 mL/min (90-130) L 12/05/21 21:40 Glucose 171 mg/dL (65-115) H 12/05/21 21:40 Calculated Osmolality 320 mOsm/kg (285-295) H 12/05/21 21:40 Calcium 8.2 mg/dL (8.5-10.5) L 12/05/21 21:40 Troponin T Baseline 15 ng/L (0-15) 12/05/21 21:40 Imaging Data Other Imaging: Radiologist's impression: [address] [address] XRay Report Signed Patient: Luis Alfredo Thompson Unit #: [id number] : 1955 Age/Sex: 66 / M ADM Date: 12/05/21 Loc: ER Room/Bed: Attending Dr: Ordering Provider/Ordering MD: Phil Mason MD Date of Service: 12/05/21 Procedure(s): XR chest 1V portable [id number] Accession Number(s): [id number] Report Number: [id number] PROCEDURE INFORMATION: Exam: XR Chest Exam date and time: 12/05/2021 9:41 PM Age: 66 years old Clinical indication: Sternal or substernal pain; Prior surgery; Surgery date: 6+ months; Surgery type: Cabg; Patient HX: C/O cp; Additional info: Chest pain TECHNIQUE: Imaging protocol: XR of the chest. Views: 1 view. COMPARISON: CR XR chest 1V portable [id number] 08/05/2021 10:46 AM FINDINGS: Lungs: Unremarkable. No consolidation. Pleural spaces: Unremarkable. No pleural effusion. No pneumothorax. Heart/Mediastinum: Unremarkable. No cardiomegaly. Bones/joints: Unremarkable. XR/XR chest 1V portable [id number] IMPRESSION: No acute findings. ? Dictated By: Dereck Corea MD Signed By: Dereck Corea MD Signed Date/Time: 12/05/212204 DD/ 40 Discharge Plan Discharge Patient Disposition: Admitted As Inpatient Admit Provider: Dean Danielle Clinical Impression: Chest pain, Acute uremia, Acute kidney injury superimposed on CKD Condition: Stable Coding Level of Care Code ED Structural Technician for Chg Fwd Exam Comprehensive
[2021-12-05] MEDS: aspirin 325 mg Tablet PO (21:44)
[2021-12-05] MEDS: morphine 4 mg/mL SDV 1 mL IVP (21:45)
[2021-12-05] MEDS: nitroglycerin 0.4 mg sublingual Tablet SUBLINGUAL (21:49)
[2021-12-05 21:51] LABS: Basophils # 0.1 10^3/uL (0.0-0.1); Basophils % 0.5 %; Eosinophils # 0.4 10^3/uL (0.0-0.8); Hemoglobin 10.1 g/dL (11.7-16.6); Lymphocytes % 15.6 %; Mean Corpuscular HGB Conc 31.6 g/dL (30.0-36.0); Mean Corpuscular Hemoglobin 29.9 pg (28.0-34.0); Mean Corpuscular Volume 94.7 fl (80-94); Monocytes # 1.2 10^3/uL (0.2-0.9); Monocytes % 9.5 %; Neutrophils % 70.7 %; Nucleated Red Blood Cells % 0 %; Platelet Count 436 10^3/cmm (130-400); Red Blood Count 3.38 10^6/uL (4.1-5.3); Red Cell Distribution Width 13.7 % (12.1-15.1); White Blood Count 12.6 10^3/uL (4.0-10.0)
[2021-12-05] MEDS: nitroglycerin drip 50 MG/250 ML PREMIX IV (21:55)
[2021-12-05 22:08] LABS: D Dimer 0.48 ug/mIFEU (0-0.59)
[2021-12-05 22:12] LABS: Calcium 8.2 mg/dL (8.5-10.5); Carbon Dioxide 15 mmol/L (22-29); Chloride 107 mmol/L (98-107); Glomerular Filtration Rate 18.8 mL/min (90-130); Glucose 171 mg/dL (65-115); Osmolality Calculated 320 mOsm/kg (285-295); Sodium 140 mmol/L (136-145)
[2021-12-05 22:13] LABS: Anion Gap 23.4 (5-19); Potassium 5.4 mmol/L (3.5-5.1); Troponin(5th) Baseline 15 ng/L (0-15)
[2021-12-05 22:14] LABS: Blood Urea Nitrogen 85 mg/dL (8-23)
[2021-12-05] MEDS: HYDROmorphone 1 mg/mL INJ 1 mL 0.5 MG IVP (22:50)
[2021-12-05] MEDS: sodium chloride 0.9% 1,000 ML 100 ML IV (22:50)
[2021-12-05] MEDS: lidocaine 2% viscous 15 ML, aluminum-mag hydrox-simethicon 30 ML, sucralfate oral liq 1 GM PO (22:51)
--- NOTE | 2021-12-05 23:21 | ECG_ITS ---
[facility] Test Date: 2021-12-06 Pat Name: Luis Alfredo Thompson Department: Room: [facility] Gender: Male White Mixing Operator: : 1955 Requested By: Phil Mason Order Number: [id number] Reading MD: Hemanth Hernandez M.D. Measurements Intervals [place] Rate: 85 P: 78 DE: 167 QRS: -43 QRSD: 112 T: 106 QT: 373 QTc: 445 Interpretive Statements SINUS RHYTHM LEFT AXIS DEVIATION [QRS AXIS < -30] MODERATE INTRAVENTRICULAR CONDUCTION DELAY [110+ ms QRS DURATION] ST DEVIATION AND MODERATE T-WAVE ABNORMALITY, CONSIDER LATERAL ISCHEMIA [-0.1+ mV T-WAVE IN I/aVL/V5/V6] Compared to ECG 12/06/2021 01:08:11 Left-axis deviation now present T-wave abnormality now present Ventricular premature complex(es) no longer present Electronically Signed On 12-06-2021 8:20:18 CDT by Hemanth Hernandez M.D. [id number]
--- NOTE | 2021-12-05 23:32 | PM.HP ---
Providers/Chief Complaint Admitting Physician: Dean Danielle MD Primary Care Provider: Donavan Clemons MD Chief Complaint: cp History of Present Illness Luis Alfredo Thompson is a 66 year old male with a extensive medical history of CAD, history of CABG, history of stenting in July 2021, history of contrast-induced nephropathy, recent history of renal masses(thought to be renal cysts?), History of COPD and smoking, currently undergoing investigation for pacemaker placement due to bradycardia/sinus pauses, history of sleep apnea on CPAP, ischemic cardiomyopathy, acute on chronic renal failure, hypercholesteremia, irv-[id number]-[id number] type 2 diabetes mellitus, who presents [facility] due to chest pain. Patient tells me that he always has chest pain, but recently over the last few weeks, he has been experiencing increasingly significant chest pain, substernal, pressure-like sometimes something sitting on his chest, lasting a few minutes, now lasting over hours, not radiating, occurring multiple times a day, he is just tired to do anything, no lower extreme edema, no shortness of breath, he is lost a lot of weight over 40 pounds. His is very concerned, as the last time he was here in the hospital, he lost over 40 pounds, she blames it on the hospital food, she tells me that he would always get this beef broth he could not eat, she tells me that if he gets admitted to the hospital this time she wants him to have better care, better food or she is going to contact the MEETING/EVENT PLANNER of the hospital. Currently patient is having severe substernal chest pain, currently improved with nitroglycerin, he does have a lot of chest wall tenderness. He also tells me that recently he is been having a lot of gas, and a lot of belching. Currently blood pressures 170s over 80s, on room air, heart rates in the 80s, review of the EKG shows ST depressions in lateral leads, his last echocardiogram showed an EF of 35%, with moderate hypokinesis of the anterolateral wall, troponin 15, BUN 85, creatinine 3.3. He is on nitroglycerin drip. Has received Dilaudid. His chest pain is very reproducible on examination, lateral anterior chest wall tenderness during palpation. In terms of his renal failure, they tell me that normally they see a line clearance foreman Dr. Anaya, he ordered a CT of the abdomen without contrast which showed renal masses so they saw another specialist in [facility] who ordered a CTA of the abdomen pelvis with contrast however they have not performed the test as of yet Review of Systems Const: Denies: fever(s) Eyes: Denies: change in vision ENMT: Denies: nasal congestion Resp: Denies: dyspnea, productive cough, non-productive cough or wheezing GI: Denies: abdominal pain, nausea, vomiting or diarrhea : Denies: flank pain, difficulty urinating, dysuria or urinary frequency Musc: Denies: back pain Neuro: Denies: headache(s) or dizziness Endo: Denies: polyuria or polydipsia Medications/Allergies Home Medications Medication Instructions Recorded Confirmed Last Taken Type simethicone 250 mg capsule (Gas 250 mg PO QID PRN 04/18/21 11/20/21 07/30/21 15:30 History Relief (simethicone)) ascorbic acid (vitamin C) 500 mg 500 mg PO QAM #100 tab 08/22/21 11/20/21 Unknown Rx tablet (Vitamin C) aspirin 81 mg tablet,delayed 81 mg PO QAM 90 Days #90 tab 08/22/21 11/20/21 Unknown Rx release atorvastatin 40 mg tablet 80 mg PO DAILY 30 Days #60 tab 08/22/21 11/20/21 Unknown Rx budesonide-formoterol HFA 80 2 inh INHALATION BID 30 Days #10.2 08/22/21 11/20/21 Unknown Rx mcg-4.5 mcg/actuation aerosol g inhaler (Symbicort) bumetanide 1 mg tablet 2 mg PO DAILY 30 Days #60 tab 08/22/21 11/20/21 Unknown Rx clopidogrel 75 mg tablet 75 mg PO QAM 30 Days #30 tab 08/22/21 11/20/21 Unknown Rx ferrous sulfate 325 mg (65 mg 325 mg PO BIDWM #100 tab 08/22/21 11/20/21 Unknown Rx iron) tablet,delayed release glimepiride 2 mg tablet 2 mg PO BID #60 tab 08/22/21 11/20/21 Unknown Rx isosorbide mononitrate 30 mg 30 mg PO BID 30 Days #60 tab 08/22/21 11/20/21 Unknown Rx tablet,extended release 24 hr loratadine 10 mg tablet (Claritin) 10 mg PO DAILY PRN #90 tab 08/22/21 11/20/21 Unknown Rx metformin 1,000 mg tablet 1,000 mg PO BID #180 tab 08/22/21 11/20/21 Unknown Rx metolazone 5 mg tablet 10 mg PO DAILY 30 Days #60 tab 08/22/21 11/20/21 Unknown Rx metoprolol tartrate 50 mg tablet 50 mg PO BID@0900,2100 30 Days #60 08/22/21 11/20/21 Unknown Rx tab nitroglycerin 0.4 mg sublingual 0.4 mg SUBLINGUAL Q5M PRN #25 tab 08/22/21 11/20/21 Unknown Rx tablet (Nitrostat) pantoprazole 40 mg tablet,delayed 40 mg PO DAILY@12 #30 tab 08/22/21 11/20/21 Unknown Rx release potassium chloride 20 mEq 20 meq PO DAILY 30 Days #30 tab 08/22/21 11/20/21 Unknown Rx tablet,extended release(part/cryst) (Klor-Con M) vitamin E 400 unit capsule 400 unit PO QAM #90 cap 08/22/21 11/20/21 Unknown Rx hydralazine 50 mg tablet 50 mg PO TID tab 09/15/21 11/20/21 Unknown History prazosin 1 mg capsule 2 mg PO DAILY cap 10/13/21 11/20/21 Unknown History sacubitril 24 mg-valsartan 26 mg 1 tab PO BID #60 tab 10/13/21 11/20/21 Unknown Rx tablet (Entresto) One touch test strips #1 ea 11/20/21 11/20/21 Unknown Rx Allergies Allergy/AdvReac Type Severity Reaction Status Date / Time Penicillins Allergy ALGY-Anaphy Verified 11/20/21 10:06 laxis cillins Allergy ALGY-Anaphy Uncoded 11/20/21 10:06 laxis PFSH Acute PFSH: Medical History Abnormal abdominal CT scan Acute on chronic systolic heart failure Allergic rhinitis due to allergen CAD (coronary artery disease) CHF (congestive heart failure) Chronic kidney disease CKD (chronic kidney disease) stage 3, GFR 30-59 ml/min COPD (chronic obstructive pulmonary disease) Diabetes mellitus, type II Dyspepsia Essential hypertension Heart failure, left, with LVEF 31-40% Hypercholesterolemia Palpitations Surgical History History of appendectomy History of coronary artery stent placement Hx of CABG Family History Father Cancer Other Diabetes Social History Smoking and tobacco status: former smoker Quit status (tobacco): has quit using tobacco Year quit tobacco: June 2021 Former quit date comment: 1.5ppd x 57years Alcohol intake: former Marital status: Number of children: 2 service: No Current gender identity: Male Vitals/I&O/Wt Last Vital Signs Temp 97.6 F 12/05/21 21:23 Pulse 81 12/05/21 23:00 Resp 17 12/05/21 23:00 BP 170/74 12/05/21 23:00 Pulse Ox 94 12/05/21 23:00 Weight last 48 hrs Weight 70.307 kg Physical Exam Const: COMMON NORMALS: no acute distress and patient oriented x3 HENMT: COMMON NORMALS: normocephalic HEAD & SCALP: normocephalic Eye: COMMON NORMALS: Equal, round and reactive pupils present and EOMs intact bilaterally Chest: OTHER: On examination, significant chest wall tenderness, bilateral sternoclavicular joints, and also nipple line Resp: COMMON NORMALS: normal respiratory effort, No retractions, No use of accessory muscles and clear to auscultation bilaterally AUSCULTATION: clear to auscultation bilaterally Cardio: COMMON NORMALS: no JVD, regular rate, regular rhythm, S1 normal heart sound present and S2 normal heart sound present RATE: regular rate RHYTHM: regular rhythm HEART SOUNDS: S1 normal heart sound present and S2 normal heart sound present GI: COMMON NORMALS: Normal to inspection, nondistended, normoactive bowel sounds present, Soft to palpation, non-tender, No hepatosplenomegaly present, no masses and no bruits PALPATION: Yes Soft to palpation and Yes No hepatosplenomegaly present Extremity: COMMON NORMALS: capillary refill normal, no clubbing, cyanosis or edema, no calf tenderness and no pedal edema Neuro: COMMON NORMALS: patient oriented x3, CN's II-XII intact bilaterally, moves all extremities and no focal motor deficits Psych: COMMON NORMALS: mental status grossly normal Data : 12/05/21 21:40 12/05/21 21:40 A&P Assessment and plan (1) Unstable angina: Status: Acute (2) Acute kidney injury superimposed on CKD: Status: Acute (3) Obstructive sleep apnea: Status: Acute (4) Ischemic cardiomyopathy: Status: Acute (5) COPD (chronic obstructive pulmonary disease): Status: Acute Qualifiers: COPD type: emphysema Emphysema type: centrilobular Qualified Code(s): J43.2 - Centrilobular emphysema (6) Hypercholesterolemia: Status: Acute (7) CHF (congestive heart failure): Status: Acute Qualifiers: Heart failure type: combined systolic and diastolic Heart failure chronicity: acute Qualified Code(s): I50.41 - Acute combined systolic (congestive) and diastolic (congestive) heart failure (8) Sick sinus syndrome: Status: Acute (9) Diabetes mellitus, type II: Status: Acute Qualifiers: Diabetes mellitus intermediate insulin use: without intermediate use Diabetes mellitus complication status: with hyperglycemia Qualified Code(s): E11.65 - Type 2 diabetes mellitus with hyperglycemia (10) Essential hypertension: Status: Chronic Plan Unstable angina -History of CABG x2 -Status post PDA stent to distal to SVG to PDA graft anastomosis -History of contrast-induced nephropathy -History of chronic chest pain, has been on Ranexa and Imdur in the past -Worsening chest pain, sounds cardiac in nature -EKG shows ST depressions in lateral leads, baseline troponin 15 -Last echocardiogram EF of 35%, with moderate anterolateral wall hypokinesis -Currently medically managed Plan -Continue aspirin, statin, Plavix, beta-felicitas -We will add a heparin drip -Continue nitro drip -Serial EKGs, serial troponins, monitor for chest pain -We will try morphine for pain, GI cocktail -Repeat echocardiogram -Based on symptomatology an work-up will consider discussing with cardiology in the morning -DNR/DNI -Heparin for DVT prophylaxis MARCELO on CKD -Bilateral low-attenuation renal masses. Renal ultrasound dated 09/24/2021 described bilateral renal cysts. -Creatinine up to 3.3 -Etiology unclear -Hold Lasix -Start gentle IV fluids -Urine studies -Monitor urine output, Place Feng catheter -We will consult nephrology in the morning Hyperkalemia, 5.4 likely from renal failure, repeat potassium in the morning Type 2 diabetes mellitus, low-dose sliding scale ORA CPAP Ischemic cardiomyopathy, continue Entresto, beta-felicitas, hydralazine, Hypertension, continue home medications History of COPD, low-dose lung CT recently done no acute findings, not in exacerbation Attestations Medical Necessity Statement*: Patient requires hospitalization, inpatient, greater than 2 midnights, for unstable angina, with history of CAD MARCELO on CKD, inpatient, greater than 2 midnights Coding Level of Care Code Acute Membership Sales Advisor for g Fwd Diagnoses Unstable angina I20.0 Acute kidney injury superimposed on CKD N17.9; N18.9 Obstructive sleep apnea G47.33 Ischemic cardiomyopathy I25.5 COPD (chronic obstructive pulmonary disease) J43.2 COPD type: emphysema Emphysema type: centrilobular Hypercholesterolemia E78.00 CHF (congestive heart failure) I50.41 Heart failure type: combined systolic and diastolic Heart failure chronicity: acute Sick sinus syndrome I49.5 Diabetes mellitus, type II E11.65 Diabetes mellitus intermediate designer insulin use: without intermediate use Diabetes mellitus complication status: with hyperglycemia Essential hypertension I10
[2021-12-06] VITALS (53 sets, daily range): BP systolic 98–159; BP diastolic 44–79; PULSE 70–90; RESP 13–27; TEMP 36.6–36.8; O2SAT 92–99
[2021-12-06 00:12] LABS: Troponin 5 2HR 34.87 ng/L (0-15)
[2021-12-06 00:13] LABS: Troponin 5 2HR Delta 19.87 ABS# (0-10)
[2021-12-06 00:20] LABS: Magnesium 1.4 mg/dL (1.7-2.3); NT Pro B Type Natriuretic Pept 1597 pg/mL (0-125); Thyroid Stimulating Hormone 2.87 uIU/mL (0.27-4.20)
--- NOTE | 2021-12-06 01:03 | USCV_ITS ---
Luis Alfredo Thompson Age: 66 Gender: M : 1955 Exam Date: 12/06/2021 01:29 Ordering Phys: Dean Danielle MD Technologist: Phillip Parr Exam Location: [facility] [place] Indication: sob BP: 139 / 70 HR: 88 Rhythm: Sinus Technical Quality: Suboptimal MEASUREMENTS (Male / Female) Normal Values 2D ECHO LV Diastolic Diameter PLAX 4.1 cm 4.2 - 5.9 / 3.9 - 5.3 cm LV Systolic Diameter PLAX 3.5 cm IVS Diastolic Thickness 1.3 cm 0.6 - 1.0 / 0.6 - 0.9 cm IVS Systolic Thickness 1.4 cm LVPW Diastolic Thickness 1.8 cm 0.6 - 1.0 / 0.6 - 0.9 cm LVPW Systolic Thickness 2.6 cm LVOT Diameter 2.0 cm LV Ejection Fraction 2D Teich 32.8 % LV Ejection Fraction MOD 2C 20.9 % LV Ejection Fraction 2C AL 21.8 % LA Diameter 3.4 cm LA Width 5.1 cm LA Height 5.5 cm RA Width 4.0 cm RA Height 4.5 cm Aorta at Sinotubular Diameter 2.5 cm M-MODE Aortic Annulus Diameter 3.0 cm LA Ao Ratio MM 1.0 MV E Point Septal Separation 1.1 cm DOPPLER AV Peak Velocity 119.7 cm/s LVOT Peak Velocity 59.0 cm/s AV Area Cont Eq vti 2.1 cm squared AV Area Cont Eq pk 1.6 cm squared MV Area PHT 5.1 cm squared Mitral E to A Ratio 1.8 MV E' Velocity 55.0 cm/s Mitral E to MV E' Ratio 9.1 Mitral E to LV E' Lateral Ratio 7.3 Mitral E to LV E' Septal Ratio 12.1 TR Peak Velocity 302.6 cm/s TR Peak Gradient 36.6 mmHg TR Mean Velocity 171.4 cm/s TR Mean Gradient 13.9 mmHg TR Velocity Time Integral 53.6 cm Right Atrial Pressure 3.0 mmHg Pulmonary Artery Systolic Pressu 39.6 mmHg PV Peak Velocity 89.0 cm/s FINDINGS Left Ventricle The ventricle is normal in size. There is akinesis of the mid anterior wall with dyskinesis of the apex suggesting an old LAD distribution myocardial infarction. The remainder the ventricle contracts normally. The ejection fraction is about 35%. Diastolic function was not evaluated. Right Ventricle Normal right ventricular size and systolic function. Mild pulmonary hypertension, RVSP 39.6 mmHg. Right Atrium Mildly increased right atrial size. Left Atrium Moderately increased left atrial size. Mitral Valve Structurally normal mitral valve. Mild mitral valve regurgitation. Aortic Valve Structurally normal aortic valve without significant sclerosis or stenosis. There is no aortic regurgitation. Tricuspid Valve Structurally normal tricuspid valve. Moderate tricuspid valve regurgitation. Pulmonic Valve Pulmonic valve not well visualized. Pericardium Normal pericardium without effusion. Aorta Normal ascending aorta dimension. CONCLUSIONS The ventricle is normal in size. There is akinesis of the mid anterior wall with dyskinesis of the apex suggesting an old LAD distribution myocardial infarction. The remainder the ventricle contracts normally. The ejection fraction is about 35%. Diastolic function was not evaluated. Normal right ventricular size and systolic function. Mild pulmonary hypertension, RVSP 39.6 mmHg. Mildly increased right atrial size. Moderately increased left atrial size. Structurally normal mitral valve. Mild mitral valve regurgitation. The previous study, done 4 months ago, was a limited 2D study only. The left ventricular function was similar at that time. Dr. Hemanth Hernandez MD (Electronically Signed) Final Date: 06 December 2021 08:06 S
[2021-12-06] MEDS: pantoprazole 40 mg SDV IVP ×2 (01:27→12:10)
[2021-12-06] MEDS: heparin drip 25,000 UNIT/500 ML PREMIX 20 UNIT IV (01:27)
[2021-12-06 01:40] LABS: Add Urine Microscopic? YES; Bilirubin Urine Neg (Negative); Blood Urine 2+ (Negative); Glucose Urine UA Norm (Normal); Ketones Urine Negative (Negative); Leukocyte Esterase Urine Negative (Negative); Nitrate Urine Negative (Negative); Protein Urine 3+ (Negative); Specific Gravity, Urine 1.015 (1.005-1.030); Urine Appearance Clear (CLEAR); Urine Color Yellow (Yellow); Urobilinogen Urine Norm (Negative); pH Urine 5 (5-7)
[2021-12-06 01:41] LABS: Add Urine Culture? Yes; Bacteria Urine 1+ /hpf; Mucus Urine 1+ /hpf; RBC Urine 15-25 /hpf (0-2); Squamous Epithelial Cell Urine 0-4 /hpf (0-5); WBC Urine 0-4 /hpf (0-5)
[2021-12-06 01:42] LABS: Amphetamines Screen Urine Negative (Negative); Barbiturates Screen Urine Negative (Negative); Benzodiazepines Screen Urine Negative (Negative); Cocaine Screen Urine Negative (Negative); Opiate Screen Urine Positive (Negative); PCP Screen Urine Negative (Negative); THC Screen Urine Negative (Negative)
[2021-12-06 02:05] LABS: Potassium, Radom Urine 38 mmol/L; Urine Creatinine 80 mg/dL (39-259); Urine Random Chloride 58 mmol/L; Urine Random Sodium 64 mmol/L
[2021-12-06 02:56] LABS: Eosinophil Urine No Eosinophils Seen; Urine Eosinophil Count 0 (0-0)
--- NOTE | 2021-12-06 03:21 | ECG_ITS ---
[facility] Test Date: 2021-12-06 Pat Name: Luis Alfredo Thompson Department: Room: [facility] Gender: Male Lpn Medical Assistant: : 1955 Requested By: Phil Mason Order Number: [id number] Reading MD: Hemanth Hernandez M.D. Measurements Intervals [place] Rate: 86 P: 77 IA: 175 QRS: -60 QRSD: 136 T: 105 QT: 384 QTc: 460 Interpretive Statements SINUS RHYTHM WITH OCCASIONAL VENTRICULAR PREMATURE COMPLEXES INTRAVENTRICULAR CONDUCTION DELAY [130+ ms QRS DURATION] ST and T wave deviation anterolaterally, suggest ischemia Compared to ECG 12/05/2021 21:18:35 Ventricular premature complex(es) now present Sinus arrhythmia no longer present Electronically Signed On 12-06-2021 8:19:24 CDT by Hemanth Hernandez M.D. [id number]
[2021-12-06 03:53] LABS: Basophils % 0.3 %; Eosinophils # 0.1 10^3/uL (0.0-0.8); Eosinophils % 0.9 %; Hematocrit 30.6 % (42.0-52.0); Hemoglobin 9.4 g/dL (11.7-16.6); Lymphocytes # 1.3 10^3/uL (0.8-4.8); Lymphocytes % 9.6 %; Mean Corpuscular HGB Conc 30.7 g/dL (30.0-36.0); Mean Corpuscular Hemoglobin 29.7 pg (28.0-34.0); Mean Corpuscular Volume 96.8 fl (80-94); Mean Platelet Volume 10.2 fL (7.4-10.4); Monocytes # 0.7 10^3/uL (0.2-0.9); Monocytes % 5.2 %; Neutrophils # 11.69 10^3/uL (1.8-7.7); Neutrophils % 83.5 %; Nucleated Red Blood Cells % 0 %; Platelet Count 372 10^3/cmm (130-400); Red Blood Count 3.16 10^6/uL (4.1-5.3); Red Cell Distribution Width 13.8 % (12.1-15.1)
[2021-12-06 04:00] LABS: Erythrocyte Sedimentation Rate 31 mm/hr (0-10)
[2021-12-06 04:14] LABS: C Reactive Protein 3.9 mg/L (0.0-4.9); Chol HDL Ratio 4.07 mg/dL (1.0-5.00); Cholesterol 118 mg/dL (0-200); Estmated Average Glucose 160; HDL Cholesterol 29 mg/dL (60-100); Hemoglobin A1C 7.2 % (4.0-6.0); LDL Cholesterol Calculated 62 mg/dL (50-129); LDL HDL Ratio 2.14 RATIO (0.00-3.22); Triglycerides 137 mg/dL (0-150)
[2021-12-06 04:15] LABS: Alanine Aminotransferase 13 U/L (0-41); Albumin Level 3.6 g/dL (3.5-5.2); Alkaline Phosphatase 83 IU/L (40-130); Anion Gap 21.1 (5-19); Aspartate Amino Transferase 40 U/L (0-40); Calcium 7.8 mg/dL (8.5-10.5); Carbon Dioxide 16 mmol/L (22-29); Chloride 109 mmol/L (98-107); Globulin 2.7 g/dL (1.3-4.6); Glucose 191 mg/dL (65-115); Osmolality Calculated 320 mOsm/kg (285-295); Potassium 6.1 mmol/L (3.5-5.1); Sodium 140 mmol/L (136-145); Total Bilirubin 0.2 mg/dL (0.15-1.2); Total Protein 6.3 g/dL (6.6-8.7)
[2021-12-06 04:16] LABS: Troponin 5 6HR Delta 106.1 ng/L (0-12)
[2021-12-06 04:17] LABS: Blood Urea Nitrogen 81 mg/dL (8-23); Troponin 5 6HR 121.1 ng/L (0-15)
[2021-12-06 04:21] LABS: Procalcitonin 0.08 ng/mL (0-0.5)
--- NOTE | 2021-12-06 04:53 | PC.NURSE ---
Dr. Danielle has approved giving aspirin and plavix this morning, despite patient being NPO.
[2021-12-06] MEDS: clopidogrel 75 mg Tablet PO (06:00)
[2021-12-06] MEDS: aspirin 81 mg EC Tablet PO (06:00)
--- NOTE | 2021-12-06 06:10 | PC.NURSE ---
[place] urine with scant amount of red streaking noted in tubing of catheter.
[2021-12-06 07:42] LABS: Glucose Point of Care 152 mg/dL (70-110)
[2021-12-06] MEDS: insulin lispro 100 unit/1 mL SUBCUT ×4 (08:04→23:12)
[2021-12-06] MEDS: atorvastatin 40 mg Tablet 80 MG PO (08:05)
[2021-12-06] MEDS: hyDRALAzine 50 mg Tablet PO ×3 (08:06→21:22)
[2021-12-06] MEDS: prazosin 1 mg Capsule 2 MG PO (08:06)
[2021-12-06] MEDS: sacubitril/valsartan 24-26 mg Tablet 1 EACH PO (08:06)
[2021-12-06] MEDS: metoprolol tartrate 50 mg Tablet PO ×2 (08:06→21:21)
--- NOTE | 2021-12-06 09:07 | PC.NURSE ---
Physician Rounding Dr. Fink at bedside, no n.o. at this time
[2021-12-06 09:19] LABS: Partial Thromboplastin Time 54.2 SECONDS (23.9-36.7)
[2021-12-06] MEDS: isosorbide mononitrate ER 30 mg Tablet PO ×2 (09:27→17:18)
--- NOTE | 2021-12-06 09:38 | PC.NURSE ---
Dr. Fink at bedside, gave v.o. for 5 units IV insulin and Kayexalate q8 HRS for Hyperkalemia, 1 amp IVP calcium for hypocalcemia and IV dextrose due prevent hypoglycemia
[2021-12-06] MEDS: insulin regular-human 5 UNIT in SYRINGE 1 EACH 1 UNIT IVP (10:02)
[2021-12-06] MEDS: sodium polystyrene sulfonate 15 gm/60 mL Btl PO (10:03)
[2021-12-06] MEDS: calcium chloride 10% Syr 10 mL 1 GM IVP (10:03)
[2021-12-06] MEDS: dextrose 10% 250 ML 500 ML IV (10:03)
--- NOTE | 2021-12-06 10:07 | PM.CONSULT ---
Providers/Reason For Consult Consulting Physician/Specialty*: Cardiovascular medicine Reason for Consult*: Chest pain, elevated troponin Requesting Physician: Hospitalist Attending Physician: Antony Fink MD Primary Care Provider: Donavan Clemons MD History of Present Illness History of Present Illness Luis Alfredo Thompson is a 66 year old male who has a fairly long complicated cardiac history among others. He has had bypass surgery with what the chart says is 2 vein grafts 1 to the circumflex and 1 to the posterior descending artery of the right. He has had myocardial infarction. He has had an ischemic cardiomyopathy. 4 months ago in July of last year he was admitted with chest pain, and elevated troponin. He underwent coronary angiography which revealed a 20% left main stenosis, a chronic 95% circumflex stenosis previously thought not amenable to intervention, previously stented LAD which was patent and a chronically occluded vein graft to the circumflex. There was a lesion from the vein graft to the right into the [place] vessel at the insertion point. A stent was placed. He also has stage IV chronic kidney disease and has had contrast-induced nephropathy in the past. His creatinine runs around 2.5-3 and his glomerular filtration rate runs about 20. He has a long list of other medical problems including COPD, tobacco abuse, sleep apnea, dyslipidemia, iyc-qvxkesh-xmpohgjan diabetes, hypertension, systolic heart failure, anemia among others. He states that he has intermittently been having chest pain since July when he had the stent placed. His complains that he cannot do very much. When he tries to walk or do anything he has chest discomfort. He takes nitroglycerin frequently. He was brought in last evening with persistent severe chest pain. He was placed on intravenous nitroglycerin and heparin. His chest pain has resolved. His first troponin was 15, the second 35 and the third 121. His BNP is 1597. His initial EKG showed fairly significant ST segment depression in leads I, L and V4 through V6. These ST changes improved with the nitroglycerin and heparin. His chest x-ray shows no CHF. Another echo was done and reveals dyskinesis of the apex and akinesis of the mid anterior wall. His ejection fraction is about 35%. This is unchanged from the echo done just 4 months ago. His creatinine is 3, BUN is 81 and his potassium this morning is 6.1. He is anemic with a hemoglobin hematocrit of 9.4 and 30.6 respectively. I was asked to see him to consider repeat angiography. His is insistent that he have the procedure. Review of Systems Narrative: Review of systems is negative aside from all of the information associated with the history of present illness Medications/Allergies Home Medications Medication Instructions Recorded Confirmed Last Taken Type simethicone 250 mg capsule (Gas 250 mg PO QID PRN 04/18/21 11/20/21 07/30/21 15:30 History Relief (simethicone)) ascorbic acid (vitamin C) 500 mg 500 mg PO QAM #100 tab 08/22/21 11/20/21 Unknown Rx tablet (Vitamin C) aspirin 81 mg tablet,delayed 81 mg PO QAM 90 Days #90 tab 08/22/21 11/20/21 Unknown Rx release atorvastatin 40 mg tablet 80 mg PO DAILY 30 Days #60 tab 08/22/21 11/20/21 Unknown Rx budesonide-formoterol HFA 80 2 inh INHALATION BID 30 Days #10.2 08/22/21 11/20/21 Unknown Rx mcg-4.5 mcg/actuation aerosol g inhaler (Symbicort) bumetanide 1 mg tablet 2 mg PO DAILY 30 Days #60 tab 08/22/21 11/20/21 Unknown Rx clopidogrel 75 mg tablet 75 mg PO QAM 30 Days #30 tab 08/22/21 11/20/21 Unknown Rx ferrous sulfate 325 mg (65 mg 325 mg PO BIDWM #100 tab 08/22/21 11/20/21 Unknown Rx iron) tablet,delayed release glimepiride 2 mg tablet 2 mg PO BID #60 tab 08/22/21 11/20/21 Unknown Rx isosorbide mononitrate 30 mg 30 mg PO BID 30 Days #60 tab 08/22/21 11/20/21 Unknown Rx tablet,extended release 24 hr loratadine 10 mg tablet (Claritin) 10 mg PO DAILY PRN #90 tab 08/22/21 11/20/21 Unknown Rx metformin 1,000 mg tablet 1,000 mg PO BID #180 tab 08/22/21 11/20/21 Unknown Rx metolazone 5 mg tablet 10 mg PO DAILY 30 Days #60 tab 08/22/21 11/20/21 Unknown Rx metoprolol tartrate 50 mg tablet 50 mg PO BID@0900,2100 30 Days #60 08/22/21 11/20/21 Unknown Rx tab nitroglycerin 0.4 mg sublingual 0.4 mg SUBLINGUAL Q5M PRN #25 tab 08/22/21 11/20/21 Unknown Rx tablet (Nitrostat) pantoprazole 40 mg tablet,delayed 40 mg PO DAILY@12 #30 tab 08/22/21 11/20/21 Unknown Rx release potassium chloride 20 mEq 20 meq PO DAILY 30 Days #30 tab 08/22/21 11/20/21 Unknown Rx tablet,extended release(part/cryst) (Klor-Con M) vitamin E 400 unit capsule 400 unit PO QAM #90 cap 08/22/21 11/20/21 Unknown Rx hydralazine 50 mg tablet 50 mg PO TID tab 09/15/21 11/20/21 Unknown History prazosin 1 mg capsule 2 mg PO DAILY cap 10/13/21 11/20/21 Unknown History sacubitril 24 mg-valsartan 26 mg 1 tab PO BID #60 tab 10/13/21 11/20/21 Unknown Rx tablet (Entresto) One touch test strips #1 ea 11/20/21 11/20/21 Unknown Rx Allergies Allergy/AdvReac Type Severity Reaction Status Date / Time Penicillins Allergy ALGY-Anaphy Verified 11/20/21 10:06 laxis cillins Allergy ALGY-Anaphy Uncoded 11/20/21 10:06 laxis Current Medications Generic Name Dose Route Start Last Admin Trade Name Freq PRN Reason Stop Dose Admin Aspirin 81 mg 12/06/21 06:00 12/06/21 06:00 Aspirin 81 Mg Ec Tablet PO 81 mg QAM SUNSHINE Administration Atorvastatin Calcium 80 mg 12/06/21 09:00 12/06/21 08:05 Atorvastatin 40 Mg Tablet PO 80 mg DAILY SUNSHINE Administration Clopidogrel Bisulfate 75 mg 12/06/21 06:00 12/06/21 06:00 Clopidogrel 75 Mg Tablet PO 75 mg QAM SUNSHINE Administration Hydralazine HCl 50 mg 12/06/21 09:00 12/06/21 08:06 Hydralazine 50 Mg Tablet PO 50 mg TID SUNSHINE Administration Nitroglycerin/Dextrose 50 mg in 250 mls @ 0 mls/hr 12/05/21 21:45 12/06/21 02:04 Nitroglycerin Drip IV 20 mcg/min .Q0M SUNSHINE 6 mls/hr Titration Protocol Per Protocol Sodium Chloride 1,000 mls @ 75 mls/hr 12/05/21 22:30 12/05/21 22:50 Sodium Chloride 0.9% IV 100 mls/hr .[id number] SUNSHINE Administration Heparin Sodium/Sodium Chloride 25,000 unit in 500 mls @ 0 mls/hr 12/06/21 01:03 12/06/21 09:25 Heparin Drip IV 14.48 unit/kg/hr .Q0M SUNSHINE 21 mls/hr Titration Protocol Per Protocol Sodium Chloride 1,000 mls @ 75 mls/hr 12/06/21 01:03 12/06/21 01:17 Sodium Chloride 0.9% IV Not Given .[id number] SUNSHINE Dextrose 250 mls @ 500 mls/hr 12/06/21 09:45 12/06/21 10:03 D10w IV 12/06/21 10:14 500 mls/hr ONCE ONE Administration Insulin Human Lispro 0 unit 12/06/21 08:00 12/06/21 08:04 Insulin Lispro 100 Unit/1 Ml SUBCUT 4 unit TIDWM SUNSHINE Administration Protocol Isosorbide Mononitrate 30 mg 12/06/21 10:00 12/06/21 09:27 Isosorbide Mononitrate Er 30 Mg Tablet PO 30 mg BID SUNSHINE Administration Metoprolol Tartrate 50 mg 12/06/21 09:00 12/06/21 08:06 Metoprolol Tartrate 50 Mg Tablet PO 50 mg BID@0900,2100 SUNSHINE Administration Pantoprazole Sodium 40 mg 12/06/21 01:03 12/06/21 01:27 Pantoprazole 40 Mg Sdv IVP 40 mg Q12H SUNSHINE Administration Prazosin HCl 2 mg 12/06/21 09:00 12/06/21 08:06 Prazosin 1 Mg Capsule PO 2 mg DAILY SUNSHINE Administration Sacubitril/Valsartan 1 each 12/06/21 09:00 12/06/21 08:06 Sacubitril/Valsartan 24-26 Mg Tablet PO 1 each BID SUNSHINE Administration Sodium Polystyrene Sulfonate 15 gm 12/06/21 10:00 12/06/21 10:03 Sodium Polystyrene Sulfonate 15 Gm/60 Ml Btl PO 15 gm Q8H SUNSHINE Administration PFSH Acute PFSH: Medical History (Updated 12/06/21 @ 10:21 by Hemanth Hernandez MD) Abnormal abdominal CT scan Acute non-ST segment elevation myocardial infarction (NSTEMI) following previous myocardial infarction Acute on chronic systolic heart failure Allergic rhinitis due to allergen CAD (coronary artery disease) CHF (congestive heart failure) Chronic kidney disease CKD (chronic kidney disease) stage 3, GFR 30-59 ml/min COPD (chronic obstructive pulmonary disease) Diabetes mellitus, type II Dyspepsia Essential hypertension Heart failure, left, with LVEF 31-40% Hypercholesterolemia Palpitations Surgical History (Updated 12/06/21 @ 10:21 by Hemanth Hernandez MD) History of appendectomy History of coronary artery stent placement Hx of CABG Family History Father Cancer Other Diabetes Social History Smoking and tobacco status: former smoker Quit status (tobacco): has quit using tobacco Year quit tobacco: June 2021 Former quit date comment: 1.5ppd x 57years Alcohol intake: former Marital status: Number of children: 2 service: No Current gender identity: Male Vitals/I&O/Wt Last Vital Signs Temp 98.3 F 12/06/21 04:00 Pulse 86 12/06/21 08:30 Resp 21 H 12/06/21 08:30 BP 137/63 12/06/21 08:30 Pulse Ox 97 12/06/21 08:30 12/05/21 12/06/21 12/06/21 22:59 06:59 14:59 Intake Total 73.65 / 73.65 159.333 / 159.333 Output Total 700 / 700 Balance -626.35 / -626.35 159.333 / 159.333 Weight last 48 hrs Weight 159 lb 13.362 oz Weight 159 lb 13.362 oz Weight 155 lb Physical Exam Narrative: GENERAL: In general he is comfortable at rest HEENT: Exam within normal limits. NECK: Supple without jugular vein distention. The carotid upstroke is normal without bruits. BACK: Exam normal. LUNGS: Clear. HEART: Regular rate and rhythm. ABDOMEN: Benign without organomegaly or tenderness. EXTREMITIES: No edema. NEUROLOGIC: Exam normal. SKIN: Unremarkable. Urinary Catheter Management: Feng: Cath Placed During This Visit: yes Reason for Continuing Indwelling Catheter: Accurate Measurement of Urinary Output in Critically Ill Patients Urinary Catheter Date of Insertion: 12/06/21 Urinary Catheter Time of Insertion: 00:30 Data : 12/06/21 03:28 12/06/21 03:28 A&P Assessment and plan (1) Chest pain: Status: Acute (2) Acute kidney injury superimposed on CKD: Status: Acute (3) Obstructive sleep apnea: Status: Acute (4) Ischemic cardiomyopathy: Status: Acute (5) COPD (chronic obstructive pulmonary disease): Status: Acute Qualifiers: COPD type: emphysema Emphysema type: centrilobular Qualified Code(s): J43.2 - Centrilobular emphysema (6) Hypercholesterolemia: Status: Acute (7) CHF (congestive heart failure): Status: Acute Qualifiers: Heart failure type: combined systolic and diastolic Heart failure chronicity: acute Qualified Code(s): I50.41 - Acute combined systolic (congestive) and diastolic (congestive) heart failure (8) Anemia, iron deficiency: Status: Acute Qualifiers: Iron deficiency anemia type: other iron deficiency Qualified Code(s): D50.8 - Other iron deficiency anemias (9) CKD (chronic kidney disease) stage 3, GFR 30-59 ml/min: Status: Acute Qualifiers: Chronic kidney disease stage 3 subtype: unspecified whether 3a or 3b Qualified Code(s): N18.30 - Chronic kidney disease, stage 3 unspecified (10) Atherosclerotic heart disease of [place] coronary artery with other forms of angina pectoris: Status: Acute (11) Diabetes mellitus, type II: Status: Acute Qualifiers: Diabetes mellitus manager long term care insulin use: without manager long term care use Diabetes mellitus complication status: with hyperglycemia Qualified Code(s): E11.65 - Type 2 diabetes mellitus with hyperglycemia (12) Essential hypertension: Status: Chronic (13) Acute non-ST segment elevation myocardial infarction (NSTEMI) following previous myocardial infarction: Status: Acute (14) History of coronary artery stent placement: Status: Acute (15) Hx of CABG: Status: Acute Plan Patient has had a non-ST segment elevation [place] again. He had transient changes in his EKG which are now resolved with intravenous heparin and nitroglycerin. Angiography could be repeated however there is a risk of worsening kidney function and/or contrast-induced nephropathy. His potassium is also high. I had a long discussion with the patient with his in the room and discussed the risks of angiography as a pertains to contrast-induced nephropathy. His is pushing him to have the angiogram. He is mildly reluctant today. I told him that even if we do anything or consider doing anything he will need nephrology input, optimization of his kidney function and reduction of his potassium to a normal range. Therefore we will obtain nephrology consult today and if his potassium is down tomorrow and he is optimized we will consider the angiogram then. I will talk to him first thing in the morning. The EKG findings would suggest a LAD distribution lesion. Consult Attestations Medical Necessity Statement: Needs continued hospitalization for management of severe underlying coronary artery disease and non-ST segment elevation [place]. Coding Level of Care Code New Pt Acute Toolmaker Grade Three for [place] Patient Type New History Comprehensive Exam Comprehensive Diagnoses Chest pain R07.9 Acute kidney injury superimposed on CKD N17.9; N18.9 Obstructive sleep apnea G47.33 Ischemic cardiomyopathy I25.5 COPD (chronic obstructive pulmonary disease) J43.2 COPD type: emphysema Emphysema type: centrilobular Hypercholesterolemia E78.00 CHF (congestive heart failure) I50.41 Heart failure type: combined systolic and diastolic Heart failure chronicity: acute Anemia, iron deficiency D50.8 Iron deficiency anemia type: other iron deficiency CKD (chronic kidney disease) stage 3, GFR 30-59 ml/min N18.30 Chronic kidney disease stage 3 subtype: unspecified whether 3a or 3b Atherosclerotic heart disease of [place] coronary artery with other forms of angina pectoris I25.118 Diabetes mellitus, type II E11.65 Diabetes mellitus manager long term care insulin use: without manager long term care use Diabetes mellitus complication status: with hyperglycemia Essential hypertension I10 Acute non-ST segment elevation myocardial infarction (NSTEMI) following previous myocardial infarction I22.2 History of coronary artery stent placement Z95.5 Hx of CABG Z95.1
--- NOTE | 2021-12-06 10:55 | PC.PHAR ---
pt states he is no longer taking Potassium Chloride 20meq once daily but is still taking Bumetanide 2mg once daily - last filled on 12/05/21 at [facility] and picked up by per pharmacy
[2021-12-06 11:27] LABS: Glucose Point of Care 175 mg/dL (70-110)
--- NOTE | 2021-12-06 11:33 | P.PN_ITS ---
Subjective Subjective: Patient was seen and examined this morning, currently is on heparin drip as well as nitro drip, chest pain has resolved, denies any shortness of breath, his other vitals and labs have been reviewed. Medications: Medication Review Details: Generic Name Dose Route Start Last Admin Trade Name Eduardo PRN Reason Stop Dose Admin Aspirin 81 mg 12/06/21 06:00 12/06/21 06:00 Aspirin 81 Mg Ec Tablet PO 81 mg QAM SUNSHINE Administration Atorvastatin Calci um 80 mg 12/06/21 09:00 12/06/21 08:05 Atorvastatin 40 Mg Tablet PO 80 mg DAILY SUNSHINE Administration Clopidogrel Bisulf ate 75 mg 12/06/21 06:00 12/06/21 06:00 Clopidogrel 75 M g Tablet PO 75 mg QAM SUNSHINE Administration Hydralazine HCl 50 mg 12/06/21 09:00 12/06/21 08:06 Hydralazine 50 M g Tablet PO 50 mg TID SUNSHINE Administration Nitroglycerin/Dext ellis 50 mg in 250 mls @ 0 mls/hr 12/05/21 21:45 12/06/21 02:[address] ip IV 20 mcg/min .Q0M SUNSHINE 6 mls/hr Titration Protocol Per Protocol Sodium Chloride 1,000 mls @ 75 ml s/hr 12/05/21 22:30 12/06/21 10:48 Sodium Chloride 0.9% IV Not Given .[id number] SUNSHINE Heparin Sodium/Sod ium Chloride 25,000 unit in 50 0 mls @ 0 mls/hr 12/06/21 01:03 12/06/21 09:25 Heparin Drip IV 14.48 unit/kg/hr .Q0M SUNSHINE 21 mls/hr Titration Protocol Per Protocol Sodium Chloride 1,000 mls @ 75 ml s/hr 12/06/21 01:03 12/06/21 01:17 Sodium Chloride 0.9% IV Not Given .[id number] SUNSHINE Insulin Human Lisp ro 0 unit 12/06/21 08:00 12/06/21 08:04 Insulin Lispro 1 00 Unit/1 Ml SUBCUT 4 unit TIDWM SUNSHINE Administration Protocol Isosorbide Mononit rate 30 mg 12/06/21 10:00 12/06/21 09:27 Isosorbide [place] itrate Er 30 Mg Ta blet PO 30 mg BID SUNSHINE Administration Metoprolol Tartrat e 50 mg 12/06/21 09:00 12/06/21 08:06 Metoprolol Tartr ate 50 Mg Tablet PO 50 mg BID@0900,2100 SUNSHINE Administration Pantoprazole Sodiu m 40 mg 12/06/21 01:03 12/06/21 01:27 Pantoprazole 40 Mg Sdv IVP 40 mg Q12H SUNSHINE Administration Prazosin HCl 2 mg 12/06/21 09:00 12/06/21 08:06 Prazosin 1 Mg Ca psule PO 2 mg DAILY SUNSHINE Administration Sacubitril/Valsart an 1 each 12/06/21 09:00 12/06/21 08:06 Sacubitril/Valsa rtan 24-26 Mg Tabl et PO 1 each BID SUNSHINE Administration Sodium Polystyrene Sulfonate 15 gm 12/06/21 10:00 12/06/21 10:03 Sodium Polystyre ne Sulfonate 15 Gm /60 Ml Btl PO 15 gm Q8H SUNSHINE Administration Vitals/I&O/Wt Last Vital Signs Temp 98.3 F 12/06/21 04:00 Pulse 86 12/06/21 08:30 Resp 21 H 12/06/21 08:30 BP 137/63 12/06/21 08:30 Pulse Ox 97 12/06/21 08:30 12/05/21 12/06/21 12/06/21 22:59 06:59 14:59 Intake Total 73.65 / 73.65 159.333 / 159.333 Output Total 700 / 700 Balance -626.35 / -626.35 159.333 / 159.333 Weight last 48 hrs Weight 72.5 kg Weight 72.5 kg Weight 70.307 kg Physical Exam Const: COMMON NORMALS: patient oriented x3 HENMT: COMMON NORMALS: normocephalic and atraumatic HEAD & SCALP: normocephalic and atraumatic Eye: GENERAL EYE: appearance normal, both eyes and all related structures Resp: COMMON NORMALS: No use of accessory muscles and clear to auscultation bilaterally EFFORT & INSPECTION: Yes symmetric chest movement AUSCULTATION: clear to auscultation bilaterally OTHER: Diminished air entry bilaterally Cardio: COMMON NORMALS: regular rate, regular rhythm, S1 normal heart sound present, S2 normal heart sound present, No gallops present (Cardio), No murmurs present (Cardio), No rub (Cardio) and Peripheral pulses 2+ throughout RATE: regular rate RHYTHM: regular rhythm HEART SOUNDS: S1 normal heart sound present and S2 normal heart sound present PERIPHERAL PULSES: Peripheral pulses 2+ throughout GI: COMMON NORMALS: Normal to inspection, nondistended, normoactive bowel s ounds present, Soft to palpation, non-tender, No hepatosplenomegaly present and no masses AUSCULTATION: Yes normoactive bowel sounds PALPATION: Yes Soft to palpation and Yes No hepatosplenomegaly present RECTAL EXAM: Yes deferred Extremity: COMMON NORMALS: no clubbing, cyanosis or edema and no pedal edema Neuro: COMMON NORMALS: patient oriented x3 Urinary Catheter Management: Feng: Cath Placed During This Visit: yes Reason for Continuing Indwelling Catheter: Accurate Measurement of Urinary Output in Critically Ill Patients Urinary Catheter Date of Insertion: 12/06/21 Urinary Catheter Time of Insertion: 00:30 Data : 12/06/21 03:28 12/06/21 03:28 A&P Assessment and plan (1) History of coronary artery stent placement: Status: Acute (2) Acute non-ST segment elevation myocardial infarction (NSTEMI) following previous myocardial infarction: Status: Acute (3) Hx of CABG: Status: Acute (4) Acute kidney injury superimposed on CKD: Status: Acute (5) Obstructive sleep apnea: Status: Acute (6) Ischemic cardiomyopathy: Status: Acute (7) COPD (chronic obstructive pulmonary disease): Status: Acute Qualifiers: COPD type: emphysema Emphysema type: centrilobular Qualified Code(s): J43.2 - Centrilobular emphysema (8) CHF (congestive heart failure): Status: Acute Qualifiers: Heart failure chronicity: acute Heart failure type: combined systolic and diastolic Qualified Code(s): I50.41 - Acute combined systolic (congestive) and diastolic (congestive) heart failure (9) Sinus node dysfunction: Status: Acute (10) Diabetes mellitus, type II: Status: Acute Qualifiers: Diabetes mellitus complication status: with hyperglycemia Diabetes mellitus chcf insulin use: without petroleum terminal 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 SVG to OM and [place] RCA are known occluded.? SVG to PDA demonstrated severe stenosis at touchdown of PDA.) CKD stage 4, COPD, currently worked up as an outpatient for possible pacemaker given history of bradycardia with sinus pauses, history of sleep apnea , on CPAP, was brought in with chief complaint of ongoing substernal pressure-like chest pain. Assessment #NSTEMI: Presented with typical cardiac chest pain, has dynamic ST-T wave changes on EKG. Troponin trend: 15 , 34,121 2D echo: The ventricle is normal in size.? There is akinesis of the mid ?anterior wall with dyskinesis of the apex suggesting an old LAD ?distribution myocardial infarction.?The remainder the ventricle ?contracts normally.? The ejection fraction is about 35%Diastolic function was not evaluated.?Normal right ventricular size and systolic function. Mild ?pulmonary hypertension, RVSP 39.6 mmHg. ?Mildly increased right atrial size. Moderately increased left atrial size. ?Structurally normal mitral valve. Mild mitral valve regurgitation. Continue, aspirin Plavix statin beta-felicitas, continue heparin drip and nitro drip, continue Imdur. Continue telemetry monitoring Cardiology on board #MARCELO on CKD stage IV: Admission serum creatinine 3.3 Continue gentle IV hydration Continue to monitor BMP Intake output charting Avoid nephrotoxic's Has prior history of contrast-induced nephropathy Renal on board #History of coronary artery disease s/p CABG s/p PCI:: #History of COPD: Currently not in exacerbation Albuterol inhaler as needed Supplemental oxygen as needed #DM : SSI Carb consistent diet Monitor fingerstick glucose #HTN: On hydralazine prazosin #Hyperkalemia: Received hyperkalemia cocktail Monitor BMP #Bilateral low-attenuation renal masses. Follow urology as an outpatient #Sick sinus syndrome: Event monitor study has revealed significant sinus pauses at night up to 6 seconds. Patient has significant sleep apnea on sleep study, currently on CPAP at night. Cardiology on board #CODE STATUS: Full code #DVT prophylaxis: Not needed on heparin Attestations Medical Necessity Statement*: Patient is in hospital for management of NSTEMI. Time Spent in Patient Care: Greater than 35 minutes (>than 50% of time spent in counselling and/or direct pt care on unit) . Critical Care Time: The high probability of a clinically significant, sudden or life threatening deterioration of the patient's [] system(s) required my full and direct attention, intervention and personal management. The critical care time is as shown. This time is in addition to time spent performing any reported procedures but includes the following: [x] Data and vital sign review and interpretation [x] Patient assessment, examination and intervention [x] Documentation [x] Medication orders and management Critical Care Time (min): 30 Coding Level of Care Code Acute Model And Pattern Supervisor for Chg Fwd Exam Detailed Diagnoses History of coronary artery stent placement Z95.5 Acute non-ST segment elevation myocardial infarction (NSTEMI) following previous myocardial infarction I22.2 Hx of CABG Z95.1 Acute kidney injury superimposed on CKD N17.9; N18.9 Obstructive sleep apnea G47.33 Ischemic cardiomyopathy I25.5 COPD (chronic obstructive pulmonary disease) J43.2 COPD type: emphysema Emphysema type: centrilobular CHF (congestive heart failure) I50.41 Heart failure chronicity: acute Heart failure type: combined systolic and diastolic Sinus node dysfunction I49.5 Diabetes mellitus, type II E11.65 Diabetes mellitus complication status: with hyperglycemia Diabetes mellitus 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
[2021-12-06] MEDS: ondansetron 2 mg/ML SDV 2 mL 4 MG IVP ×2 (12:33→18:48)
--- NOTE | 2021-12-06 12:47 | PM.CONSULT ---
Providers/Reason For Consult Consulting Physician/Specialty*: Nephro Reason for Consult*: MARCELO/CKD/hyperK Attending Physician: Antony Fink MD Primary Care Provider: Donavan Clemons MD History of Present Illness History of Present Illness Thank for consultation comments I had the pleasure of reviewing this 66-year-old gentleman who has a significant cardiac history. This includes bypass surgery, prior myocardial infarction, ischemic cardiomyopathy with last angiogram in July. He has developed chest pain on Wednesday evening, he took a sublingual nitro, however, this did not help the pain. He subsequently presented to our facility for evaluation. Admission EKG showed ST segment depression which improved with nitroglycerin and heparin. Echocardiogram demonstrated ejection fraction 35% with dyskinesis of the apex and akinesis of the mid anterior wall. He is now prepping for an angiogram. From my own perspective, he has a known history of chronic kidney disease. Back in August creatinine roughly 2, today creatinine is 3 with a potassium of 6.1 and bicarb of 16. He did start on Entresto in the last few months. No other new medications. No exposure to anti-inflammatory medications. Is passing his urine without any obstructive symptoms. Hemodynamics reviewed and remained stable, blood pressure 119/60 He denies extremity edema, shortness of breath or other hypervolemic symptoms. Medications/Allergies Home Medications Medication Instructions Recorded Confirmed Last Taken Type simethicone 250 mg capsule (Gas 250 mg PO QID PRN 04/18/21 12/06/21 07/30/21 15:30 History Relief (simethicone)) ascorbic acid (vitamin C) 500 mg 500 mg PO QAM #100 tab 08/22/21 12/06/21 Unknown Rx tablet (Vitamin C) aspirin 81 mg tablet,delayed 81 mg PO QAM 90 Days #90 tab 08/22/21 12/06/21 Unknown Rx release atorvastatin 40 mg tablet 80 mg PO DAILY 30 Days #60 tab 08/22/21 12/06/21 Unknown Rx budesonide-formoterol HFA 80 2 inh INHALATION BID 30 Days #10.2 08/22/21 12/06/21 Unknown Rx mcg-4.5 mcg/actuation aerosol g inhaler (Symbicort) bumetanide 1 mg tablet 2 mg PO DAILY 30 Days #60 tab 08/22/21 12/06/21 Unknown Rx clopidogrel 75 mg tablet 75 mg PO QAM 30 Days #30 tab 08/22/21 12/06/21 Unknown Rx ferrous sulfate 325 mg (65 mg 325 mg PO BIDWM #100 tab 08/22/21 12/06/21 Unknown Rx iron) tablet,delayed release glimepiride 2 mg tablet 2 mg PO BID #60 tab 08/22/21 12/06/21 Unknown Rx isosorbide mononitrate 30 mg 30 mg PO BID 30 Days #60 tab 08/22/21 12/06/21 Unknown Rx tablet,extended release 24 hr loratadine 10 mg tablet (Claritin) 10 mg PO DAILY PRN #90 tab 08/22/21 12/06/21 Unknown Rx metformin 1,000 mg tablet 1,000 mg PO BID #180 tab 08/22/21 12/06/21 Unknown Rx metolazone 5 mg tablet 10 mg PO DAILY 30 Days #60 tab 08/22/21 12/06/21 Unknown Rx metoprolol tartrate 50 mg tablet 50 mg PO BID@0900,2100 30 Days #60 08/22/21 12/06/21 Unknown Rx tab nitroglycerin 0.4 mg sublingual 0.4 mg SUBLINGUAL Q5M PRN #25 tab 08/22/21 12/06/21 Unknown Rx tablet (Nitrostat) pantoprazole 40 mg tablet,delayed 40 mg PO DAILY@12 #30 tab 08/22/21 12/06/21 Unknown Rx release potassium chloride 20 mEq 20 meq PO DAILY 30 Days #30 tab 08/22/21 12/06/21 Unknown Rx tablet,extended release(part/cryst) (Klor-Con M) vitamin E 400 unit capsule 400 unit PO QAM #90 cap 08/22/21 12/06/21 Unknown Rx hydralazine 50 mg tablet 50 mg PO TID tab 09/15/21 12/06/21 Unknown History prazosin 1 mg capsule 2 mg PO DAILY cap 10/13/21 12/06/21 Unknown History sacubitril 24 mg-valsartan 26 mg 1 tab PO BID #60 tab 10/13/21 12/06/21 Unknown Rx tablet (Entresto) One touch test strips #1 ea 11/20/21 12/06/21 Unknown Rx Allergies Allergy/AdvReac Type Severity Reaction Status Date / Time Penicillins Allergy ALGY-Anaphy Verified 11/20/21 10:06 laxis cillins Allergy ALGY-Anaphy Uncoded 11/20/21 10:06 laxis Current Medications Generic Name Dose Route Start Last Admin Trade Name Eduardo PRN Reason Stop Dose Admin Aspirin 81 mg 12/06/21 06:00 12/06/21 06:00 Aspirin 81 Mg Ec Tablet PO 81 mg QAM SUNSHINE Administration Atorvastatin Calcium 80 mg 12/06/21 09:00 12/06/21 08:05 Atorvastatin 40 Mg Tablet PO 80 mg DAILY SUNSHINE Administration Clopidogrel Bisulfate 75 mg 12/06/21 06:00 12/06/21 06:00 Clopidogrel 75 Mg Tablet PO 75 mg QAM SUNSHINE Administration Hydralazine HCl 50 mg 12/06/21 09:00 12/06/21 08:06 Hydralazine 50 Mg Tablet PO 50 mg TID SUNSHINE Administration Nitroglycerin/Dextrose 50 mg in 250 mls @ 0 mls/hr 12/05/21 21:45 12/06/21 02:04 Nitroglycerin Drip IV 20 mcg/min .Q0M SUNSHINE 6 mls/hr Titration Protocol Per Protocol Heparin Sodium/Sodium Chloride 25,000 unit in 500 mls @ 0 mls/hr 12/06/21 01:03 12/06/21 09:25 Heparin Drip IV 14.48 unit/kg/hr .Q0M SUNSHINE 21 mls/hr Titration Protocol Per Protocol Insulin Human Lispro 0 unit 12/06/21 08:00 12/06/21 12:10 Insulin Lispro 100 Unit/1 Ml SUBCUT 4 unit TIDWM SUNSHINE Administration Protocol Isosorbide Mononitrate 30 mg 12/06/21 10:00 12/06/21 09:27 Isosorbide Mononitrate Er 30 Mg Tablet PO 30 mg BID SUNSHINE Administration Metoprolol Tartrate 50 mg 12/06/21 09:00 12/06/21 08:06 Metoprolol Tartrate 50 Mg Tablet PO 50 mg BID@0900,2100 SUNSHINE Administration Ondansetron HCl 4 mg 12/06/21 01:03 12/06/21 12:33 Ondansetron 2 Mg/Ml Sdv 2 Ml IVP 4 mg Q8H PRN Administration vomiting, or N/V if npo Pantoprazole Sodium 40 mg 12/06/21 01:03 12/06/21 12:10 Pantoprazole 40 Mg Sdv IVP 40 mg Q12H SUNSHINE Administration Prazosin HCl 2 mg 12/06/21 09:00 12/06/21 08:06 Prazosin 1 Mg Capsule PO 2 mg DAILY SUNSHINE Administration Sodium Polystyrene Sulfonate 15 gm 12/06/21 10:00 12/06/21 10:03 Sodium Polystyrene Sulfonate 15 Gm/60 Ml Btl PO 15 gm Q8H SUNSHINE Administration PFSH Acute PFSH: Medical History (Updated 12/06/21 @ 10:21 by Hemanth Hernandez MD) Abnormal abdominal CT scan Acute non-ST segment elevation myocardial infarction (NSTEMI) following previous myocardial infarction Acute on chronic systolic heart failure Allergic rhinitis due to allergen CAD (coronary artery disease) CHF (congestive heart failure) Chronic kidney disease CKD (chronic kidney disease) stage 3, GFR 30-59 ml/min COPD (chronic obstructive pulmonary disease) Diabetes mellitus, type II Dyspepsia Essential hypertension Heart failure, left, with LVEF 31-40% Hypercholesterolemia Palpitations Surgical History (Updated 12/06/21 @ 10:21 by Hemanth Hernandez MD) History of appendectomy History of coronary artery stent placement Hx of CABG Family History Father Cancer Other Diabetes Social History Smoking and tobacco status: former smoker Quit status (tobacco): has quit using tobacco Year quit tobacco: June 2021 Former quit date comment: 1.5ppd x 57years Alcohol intake: former Marital status: Number of children: 2 service: No Current gender identity: Male Vitals/I&O/Wt Last Vital Signs Temp 98.3 F 12/06/21 04:00 Pulse 77 12/06/21 12:30 Resp 13 12/06/21 12:30 BP 119/60 12/06/21 12:30 Pulse Ox 95 12/06/21 12:30 12/05/21 12/06/21 12/06/21 22:59 06:59 14:59 Intake Total 73.65 / 73.65 309.333 / 309.333 Output Total 700 / 700 Balance -626.35 / -626.35 309.333 / 309.333 Weight last 48 hrs Weight 72.5 kg Weight 72.5 kg Weight 70.307 kg Physical Exam Urinary Catheter Management: Feng: Cath Placed During This Visit: yes Reason for Continuing Indwelling Catheter: Accurate Measurement of Urinary Output in Critically Ill Patients Urinary Catheter Date of Insertion: 12/06/21 Urinary Catheter Time of Insertion: 00:30 Data : 12/06/21 03:28 12/06/21 03:28 A&P Assessment and plan (1) Acute kidney injury superimposed on CKD: 1. Chronic kidney disease History of chronic kidney disease with baseline creatinine roughly 2, now presenting with creatinine of 3. Likely to have underlying renovascular disease as well as cardiorenal syndrome. Of note has started Entresto, he may well be intolerant to this medication and I am holding it. Continue gentle IV hydration We will get renal sonogram A.m. labs Strict I's and O's Dose medication for GFR less than 30 Avoid usual nephrotoxins 2. Chemistry Hyperkalemia, nongap metabolic acidosis, likely secondary to ARB fracture in the setting of chronic kidney disease and renovascular disease. Will hold the Entresto. IV hydration with bicarb infusion He has received the hyperkalemia cocktail Repeat labs later on this afternoon. 3. Acute coronary syndrome Management per cardiology is appreciated, in preparation for angiography in the next day or so when chemistry looks more stabilized. I did discuss with him the risk of acute kidney injury from angiographic contrast. There is a risk that he may have acute kidney injury and require hemodialysis afterwards. Will give gentle intravenous fluid, would minimize dye exposure. Of note dialysis does not help to prevent dialysis and is not recommended. 4. 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
[2021-12-06] MEDS: sodium bicarbonate 150 MEQ in dextrose 5% 1,000 ML 100 MEQ IV (12:58)
[2021-12-06 15:33] LABS: Partial Thromboplastin Time 43.3 SECONDS (23.9-36.7)
[2021-12-06] MEDS: heparin 5,000 unit/mL INJ 1 mL IV (15:36)
[2021-12-06 16:08] LABS: Glucose Point of Care 203 mg/dL (70-110)
[2021-12-06 16:48] LABS: Anion Gap 16.5 (5-19); Blood Urea Nitrogen 80 mg/dL (8-23); Calcium 8.5 mg/dL (8.5-10.5); Carbon Dioxide 19 mmol/L (22-29); Chloride 107 mmol/L (98-107); Glomerular Filtration Rate 22.7 mL/min (90-130); Glucose 204 mg/dL (65-115); Osmolality Calculated 314 mOsm/kg (285-295); Potassium 5.5 mmol/L (3.5-5.1); Sodium 137 mmol/L (136-145)
--- NOTE | 2021-12-06 19:56 | PC.NURSE ---
small amount of bleeding noted around urinary meatus.
--- NOTE | 2021-12-06 21:25 | PC.NURSE ---
Pt's blood glucose elevated. Pt reports that he has been eating cake. Education provided.
[2021-12-06 21:29] LABS: Glucose Point of Care 312 mg/dL (70-110)
[2021-12-06 23:04] LABS: Glucose Point of Care 334 mg/dL (70-110)
--- NOTE | 2021-12-06 23:50 | PC.NURSE ---
At 2325, Pt had a 6 beat run of an irregular WCT. Pt asymptomatic.
[2021-12-07] VITALS (50 sets, daily range): BP systolic 94–163; BP diastolic 33–78; PULSE 69–93; RESP 12–26; TEMP 36.4–37.6; O2SAT 93–99
--- NOTE | 2021-12-07 00:25 | PC.NURSE ---
Pt resting quietly in bed with eyes closed. Pt NPO for possible cath tomorrow.
[2021-12-07] MEDS: heparin drip 25,000 UNIT/500 ML PREMIX 20 UNIT IV (01:13)
[2021-12-07] MEDS: sodium bicarbonate 150 MEQ in dextrose 5% 1,000 ML 100 MEQ IV ×2 (01:13→14:10)
[2021-12-07] MEDS: pantoprazole 40 mg SDV IVP ×2 (01:14→12:15)
--- NOTE | 2021-12-07 04:09 | PC.NURSE ---
Pt's lungs sound more diminished on the right. Pt now appears to have more of brown sediment in catheter tubing instead of red streaking.
[2021-12-07] MEDS: clopidogrel 75 mg Tablet PO (05:40)
[2021-12-07] MEDS: aspirin 81 mg EC Tablet PO (05:40)
[2021-12-07 05:51] LABS: Partial Thromboplastin Time 81.2 SECONDS (23.9-36.7)
--- NOTE | 2021-12-07 06:54 | P.PN_ITS ---
Subjective Subjective: Patient has no complaints this morning. I reviewed the nephrology note. He is creatinine is down to 2.8 this morning. Potassium is still high at 5.5. Serum bicarbonate is 19. I see that the Entresto has been discontinued. Vitals/I&O/Wt Last Vital Signs Temp 98.3 F 12/07/21 04:00 Pulse 89 12/07/21 06:00 Resp 16 12/07/21 06:00 BP 123/51 12/07/21 06:00 Pulse Ox 99 12/07/21 06:00 12/06/21 12/06/21 12/07/21 14:59 22:59 06:59 Intake Total 309.333 / 309.333 693.3 / 7271.146 9076.817 / 3745.450 Output Total 450 / 450 500 / 950 Balance 309.333 / 309.333 243.3 / 885.629 8661.817 / 2795.450 Weight last 48 hrs Weight 162 lb 0.636 oz Weight 159 lb 13.362 oz Weight 159 lb 13.362 oz Weight 155 lb Physical Exam Narrative: GENERAL: In general he is resting comfortably and looks and feels well HEENT: Exam within normal limits. NECK: Supple without jugular vein distention. The carotid upstroke is normal without bruits. BACK: Exam normal. LUNGS: Clear. HEART: Regular rate and rhythm. ABDOMEN: Benign without organomegaly or tenderness. EXTREMITIES: No edema. NEUROLOGIC: Exam normal. SKIN: Unremarkable. Urinary Catheter Management: Feng: Cath Placed During This Visit: yes Reason for Continuing Indwelling Catheter: Accurate Measurement of Urinary Output in Critically Ill Patients Urinary Catheter Date of Insertion: 12/06/21 Urinary Catheter Time of Insertion: 00:30 Data : 12/06/21 03:28 12/06/21 16:18 A&P Assessment and plan (1) Hx of CABG: Status: Acute (2) History of coronary artery stent placement: Status: Acute (3) Acute non-ST segment elevation myocardial infarction (NSTEMI) following previous myocardial infarction: Status: Acute (4) Unstable angina: Status: Acute (5) Chest pain: Status: Acute (6) Acute uremia: Status: Acute (7) Acute kidney injury superimposed on CKD: Status: Acute (8) Obstructive sleep apnea: Status: Acute (9) Ischemic cardiomyopathy: Status: Acute (10) Hypercholesterolemia: Status: Acute (11) Anemia, iron deficiency: Status: Acute Qualifiers: Iron deficiency anemia type: other iron deficiency Qualified Code(s): D50.8 - Other iron deficiency anemias (12) Diabetes mellitus, type II: Status: Acute Qualifiers: Diabetes mellitus adjunct faculty for medical terminology insulin use: without detention use Diabetes mellitus complication status: with hyperglycemia Qualified Code(s): E11.65 - Type 2 diabetes mellitus with hyperglycemia (13) Essential hypertension: Status: Chronic Plan My feeling is that he is fairly high risk for contrast-induced nephropathy. I would agree with gentle rehydration. I think we will hold off 1 more day on angiography. His potassium is still high. I spoke to him about this at some length. His is not here this morning but we will speak to her when she comes in. I will reassess tomorrow. We will plan on imaging only the coronary arteries and the 1 bypass graft to the right posterior descending artery. The other 1 is known to be occluded. This would be to minimize the contrast load. No left ventriculography. Attestations Medical Necessity Statement*: Needs hospitalization for non-ST segment elevation [place] Coding Level of Care Code Established Pt Acute Job Developer for Chg Fwd Patient Type Established History Detailed Exam Detailed Medical Decision Making Moderate Complexity Diagnoses Hx of CABG Z95.1 History of coronary artery stent placement Z95.5 Acute non-ST segment elevation myocardial infarction (NSTEMI) following previous myocardial infarction I22.2 Unstable angina I20.0 Chest pain R07.9 Acute uremia N19 Acute kidney injury superimposed on CKD N17.9; N18.9 Obstructive sleep apnea G47.33 Ischemic cardiomyopathy I25.5 Hypercholesterolemia E78.00 Anemia, iron deficiency D50.8 Iron deficiency anemia type: other iron deficiency Diabetes mellitus, type II E11.65 Diabetes mellitus detention insulin use: without adjunct faculty for medical terminology use Diabetes mellitus complication status: with hyperglycemia Essential hypertension I10
[2021-12-07 07:40] LABS: Glucose Point of Care 168 mg/dL (70-110)
[2021-12-07] MEDS: insulin lispro 100 unit/1 mL SUBCUT ×3 (08:03→17:11)
[2021-12-07] MEDS: nitroglycerin 1 gm/inch oint Pkt 1 INCH TOPICAL ×2 (08:04→14:10)
[2021-12-07] MEDS: prazosin 1 mg Capsule 2 MG PO (08:05)
[2021-12-07] MEDS: hyDRALAzine 50 mg Tablet PO ×3 (08:05→20:12)
[2021-12-07] MEDS: atorvastatin 40 mg Tablet 80 MG PO (08:05)
[2021-12-07] MEDS: isosorbide mononitrate ER 30 mg Tablet PO ×2 (08:05→17:15)
[2021-12-07] MEDS: metoprolol tartrate 50 mg Tablet PO ×2 (08:06→20:32)
[2021-12-07] MEDS: ondansetron 2 mg/ML SDV 2 mL 4 MG IVP (08:14)
--- NOTE | 2021-12-07 08:22 | PC.NURSE ---
Dr. Fink at bedside, gave v.o. to start Nitro paste q6 hours and to titrate down on Nitro drip in order to slowly get off the drip
[2021-12-07 12:13] LABS: Glucose Point of Care 310 mg/dL (70-110)
[2021-12-07 13:25] LABS: Anion Gap 17.7 (5-19); Blood Urea Nitrogen 73 mg/dL (8-23); Calcium 7.6 mg/dL (8.5-10.5); Carbon Dioxide 22 mmol/L (22-29); Chloride 99 mmol/L (98-107); Glomerular Filtration Rate 18.8 mL/min (90-130); Glucose 301 mg/dL (65-115); Osmolality Calculated 311 mOsm/kg (285-295); Potassium 4.7 mmol/L (3.5-5.1); Sodium 134 mmol/L (136-145)
[2021-12-07 14:28] LABS: Basophils % 0.2 %; Eosinophils # 0.3 10^3/uL (0.0-0.8); Eosinophils % 2.3 %; Hematocrit 24.8 % (42.0-52.0); Hemoglobin 7.5 g/dL (11.7-16.6); Lymphocytes # 1.1 10^3/uL (0.8-4.8); Lymphocytes % 10.1 %; Mean Corpuscular HGB Conc 30.2 g/dL (30.0-36.0); Mean Corpuscular Hemoglobin 29.6 pg (28.0-34.0); Mean Platelet Volume 10.3 fL (7.4-10.4); Monocytes # 0.7 10^3/uL (0.2-0.9); Monocytes % 6.7 %; Neutrophils # 8.77 10^3/uL (1.8-7.7); Neutrophils % 80.2 %; Nucleated Red Blood Cells % 0 %; Platelet Count 269 10^3/cmm (130-400); Red Blood Count 2.53 10^6/uL (4.1-5.3); Red Cell Distribution Width 13.5 % (12.1-15.1); White Blood Count 10.9 10^3/uL (4.0-10.0)
--- NOTE | 2021-12-07 16:32 | PC.NURSE ---
received in to room 250-2 at 1515 from icu.report received.pt is alert and oriented x 4.sr w/bbb and occas pvc's on monitor.denies chest pain at present.oriented to room environment.instructed to notify staff for any chst pain,sob,or for any concerns at all.pt verb understanding of instructions
--- NOTE | 2021-12-07 17:10 | PM.PN ---
Subjective Subjective: Patient was seen and examined this morning,deny any chest pain, saturating well on minimum supplemental oxygen, documented U/O Since admission 1.6 Ls, LOS + 3.8 Ls, Hb has dropped to7.5 Today, will transfuse 1 u prbc monitor h&h, hyperkalemia has resolved ,SCR is elevated to 3.3. no other acute events. Medications: Medication Review Details: Generic Name Dose Route Start Last Admin Trade Name Freq PRN Reason Stop Dose Admin Aspirin 81 mg 12/06/21 06:00 12/07/21 05:40 Aspirin 81 Mg Ec Tablet PO 81 mg QAM SUNSHINE Administration Atorvastatin Calci um 80 mg 12/06/21 09:00 12/07/21 08:05 Atorvastatin 40 Mg Tablet PO 80 mg DAILY SUNSHINE Administration Clopidogrel Bisulf ate 75 mg 12/06/21 06:00 12/07/21 05:40 Clopidogrel 75 M g Tablet PO 75 mg QAM SUNSHINE Administration Heparin Sodium (Po rcine) 0 unit 12/06/21 01:03 12/06/21 15:36 Heparin 5,000 Un it/Ml Inj 1 Ml IV 2,900 unit PRN PRN Administration Heparin weight-ba se protocol Protocol Hydralazine HCl 50 mg 12/06/21 09:00 12/07/21 14:10 Hydralazine 50 M g Tablet PO 50 mg TID SUNSHINE Administration Nitroglycerin/Dext ellis 50 mg in 250 mls @ 0 mls/hr 12/05/21 21:45 12/07/21 14:[address] ip IV 0 mcg/min .Q0M SUNSHINE 0 mls/hr Titration Protocol Per Protocol Heparin Sodium/Sod ium Chloride 25,000 unit in 50 0 mls @ 0 mls/hr 12/06/21 01:03 12/07/21 06:13 Heparin Drip IV 13.1 unit/kg/hr .Q0M SUNSHINE 19 mls/hr Titration Protocol Per Protocol Sodium Bicarbonate 150 meq/ 1,150 mls @ 100 m ls/hr 12/06/21 13:00 12/07/21 14:10 Dextrose IV 100 mls/hr .[id number] SUNSHINE Administration Insulin Human Lisp ro 0 unit 12/06/21 08:00 12/07/21 12:15 Insulin Lispro 1 00 Unit/1 Ml SUBCUT 12 unit TIDWM SUNSHINE Administration Protocol Isosorbide Mononit rate 30 mg 12/06/21 10:00 12/07/21 08:05 Isosorbide Warner itrate Er 30 Mg Ta blet PO 30 mg BID SUNSHINE Administration Metoprolol Tartrat e 50 mg 12/06/21 09:00 12/07/21 08:06 Metoprolol Tartr ate 50 Mg Tablet PO 50 mg BID@0900,2100 SUNSHINE Administration Nitroglycerin 1 inch 12/07/21 08:00 12/07/21 14:10 Nitroglycerin 1 Gm/Inch Oint Pkt TOPICAL 1 inch Q6H SUNSHINE Administration Ondansetron HCl 4 mg 12/06/21 01:03 12/07/21 08:14 Ondansetron 2 Mg /Ml Sdv 2 Ml IVP 4 mg Q8H PRN Administration vomiting, or N/V if npo Pantoprazole Sodiu m 40 mg 12/06/21 01:03 12/07/21 12:15 Pantoprazole 40 Mg Sdv IVP 40 mg Q12H SUNSHINE Administration Prazosin HCl 2 mg 12/06/21 09:00 12/07/21 08:05 Prazosin 1 Mg Ca psule PO 2 mg DAILY SUNSHINE Administration Vitals/I&O/Wt Last Vital Signs Temp 97.6 F 12/07/21 14:52 Pulse 80 12/07/21 14:52 Resp 18 12/07/21 14:52 BP 135/63 12/07/21 14:52 Pulse Ox 98 12/07/21 14:52 12/07/21 12/07/21 12/07/21 06:59 14:59 22:59 Intake Total 2742.817 / 3745.450 1701.475 / 1701.475 Output Total 500 / 950 Balance 2242.817 / 2795.450 1701.475 / 1701.475 Weight last 48 hrs Weight 73.5 kg Weight 72.5 kg Weight 72.5 kg Weight 70.307 kg Physical Exam Const: COMMON NORMALS: patient oriented x3 HENMT: COMMON NORMALS: normocephalic and atraumatic HEAD & SCALP: normocephalic and atraumatic Eye: GENERAL EYE: appearance normal, both eyes and all related structures Resp: COMMON NORMALS: No use of accessory muscles and clear to auscultation bilaterally EFFORT & INSPECTION: Yes symmetric chest movement AUSCULTATION: clear to auscultation bilaterally OTHER: Diminished air entry bilaterally Cardio: COMMON NORMALS: regular rate, regular rhythm, S1 normal heart sound present, S2 normal heart sound present, No gallops present (Cardio), No murmurs present (Cardio), No rub (Cardio) and Peripheral pulses 2+ throughout RATE: regular rate RHYTHM: regular rhythm HEART SOUNDS: S1 normal heart sound present and S2 normal heart sound present PERIPHERAL PULSES: Peripheral pulses 2+ throughout GI: COMMON NORMALS: Normal to inspection, nondistended, normoactive bowel sounds present, Soft to palpation, non-tender, No hepatosplenomegaly present and no masses AUSCULTATION: Yes normoactive bowel sounds PALPATION: Yes Soft to palpation and Yes No hepatosplenomegaly present RECTAL EXAM: Yes deferred Extremity: COMMON NORMALS: no clubbing, cyanosis or edema and no pedal edema Neuro: COMMON NORMALS: patient oriented x3 Urinary Catheter Management: Feng: Cath Placed During This Visit: yes Reason for Continuing Indwelling Catheter: Accurate Measurement of Urinary Output in Critically Ill Patients Urinary Catheter Date of Insertion: 12/06/21 Urinary Catheter Time of Insertion: 00:30 Data : 12/07/21 14:12 12/07/21 12:03 Micro: Microbiology 12/06/21 00:57 Urine Culture - Preliminary Urine Catheterized A&P Assessment and plan (1) History of coronary artery stent placement: Status: Acute (2) Acute non-ST segment elevation myocardial infarction (NSTEMI) following previous myocardial infarction: Status: Acute (3) Hx of CABG: Status: Acute (4) Acute kidney injury superimposed on CKD: Status: Acute (5) Obstructive sleep apnea: Status: Acute (6) Ischemic cardiomyopathy: Status: Acute (7) COPD (chronic obstructive pulmonary disease): Status: Acute Qualifiers: COPD type: emphysema Emphysema type: centrilobular Qualified Code(s): J43.2 - Centrilobular emphysema (8) CHF (congestive heart failure): Status: Acute Qualifiers: Heart failure type: combined systolic and diastolic Heart failure chronicity: acute Qualified Code(s): I50.41 - Acute combined systolic (congestive) and diastolic (congestive) heart failure (9) Sinus node dysfunction: Status: Acute (10) Diabetes mellitus, type II: Status: Acute Qualifiers: 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 SVG to OM and [place] RCA are known occluded.? SVG to PDA demonstrated severe stenosis at touchdown of PDA.) CKD stage 4, COPD, currently worked up as an outpatient for possible pacemaker given history of bradycardia with sinus pauses, history of sleep apnea , on CPAP, was brought in with chief complaint of ongoing substernal pressure-like chest pain. Assessment #NSTEMI: Presented with typical cardiac chest pain, has dynamic ST-T wave changes on EKG. Troponin trend: 15 , 34,121 2D echo: The ventricle is normal in size.? There is akinesis of the mid ?anterior wall with dyskinesis of the apex suggesting an old LAD ?distribution myocardial infarction.?The remainder the ventricle ?contracts normally.? The ejection fraction is about 35%Diastolic function was not evaluated.?Normal right ventricular size and systolic function. Mild ?pulmonary hypertension, RVSP 39.6 mmHg. ?Mildly increased right atrial size. Moderately increased left atrial size. ?Structurally normal mitral valve. Mild mitral valve regurgitation. Continue, aspirin Plavix statin beta-felicitas, continue heparin drip and nitro drip, continue Imdur, on nitro paste Continue telemetry monitoring Cardiology on board #MARCELO on CKD stage IV: Admission serum creatinine 3.3 Continue gentle IV hydration Continue to monitor BMP Intake output charting Avoid nephrotoxic's Has prior history of contrast-induced nephropathy Renal on board #History of coronary artery disease s/p CABG s/p PCI:: #History of COPD: Currently not in exacerbation Albuterol inhaler as needed Supplemental oxygen as needed #Anemia : Admission Hb is 10.1 Transfuse to maintain hb> 10 #DM : SSI Carb consistent diet Monitor fingerstick glucose #HTN: On hydralazine prazosin #Hyperkalemia: Received hyperkalemia cocktail Monitor BMP #Bilateral low-attenuation renal masses. Follow urology as an outpatient #Sick sinus syndrome: Event monitor study has revealed significant sinus pauses at night up to 6 seconds. Patient has significant sleep apnea on sleep study, currently on CPAP at night. Cardiology on board #CODE STATUS: Full code #DVT prophylaxis: Not needed on heparin Attestations Medical Necessity Statement*: Patient needs to be in hospital for the management of NSTEMI. Time Spent in Patient Care: Greater than 35 minutes (>than 50% of time spent in counselling and/or direct pt care on unit). Critical Care Time: The high probability of a clinically significant, sudden or life threatening deterioration of the patient's [] system(s) required my full and direct attention, intervention and personal management. The critical care time is as shown. This time is in addition to time spent performing any reported procedures but includes the following: [x] Data and vital sign review and interpretation [x] Patient assessment, examination and intervention [x] Documentation [x] Medication orders and management Critical Care Time (min): 30 Coding Level of Care Code Acute Produce Specialist for Chg Fwd Diagnoses History of coronary artery stent placement Z95.5 Acute non-ST segment elevation myocardial infarction (NSTEMI) following previous myocardial infarction I22.2 Hx of CABG Z95.1 Acute kidney injury superimposed on CKD N17.9; N18.9 Obstructive sleep apnea G47.33 Ischemic cardiomyopathy I25.5 COPD (chronic obstructive pulmonary disease) J43.2 COPD type: emphysema Emphysema type: centrilobular CHF (congestive heart failure) I50.41 Heart failure type: combined systolic and diastolic Heart failure chronicity: acute Sinus node dysfunction I49.5 Diabetes mellitus, type II E11.65 Diabetes mellitus jail insulin use: without jail use Diabetes mellitus complication status: with hyperglycemia Essential hypertension I10
--- NOTE | 2021-12-07 17:47 | PC.NURSE ---
transferred to icu 1 per md order.report given.
--- NOTE | 2021-12-07 18:00 | PC.NURSE ---
recieved to icu i now icu admit no change in status vs remain stable no chest pain at this time o2 sats 96% room air placed on o2 2lnc at bedside slight bloody urine noted in finch remains on heparin gtt and bicarb gtt.. good appitite for evening meal at this time..
--- NOTE | 2021-12-07 19:12 | PC.NURSE ---
1835-transdermal ntg removed by day shift nurse and NTG drip restarted due to chest pain.
[2021-12-07 19:46] LABS: Partial Thromboplastin Time 55.2 SECONDS (23.9-36.7)
[2021-12-07] MEDS: sodium chloride 0.9% 250 ML IV (20:12)
[2021-12-07] MEDS: diphenhydrAMINE 50 mg Capsule PO (20:12)
--- NOTE | 2021-12-07 20:37 | PC.NURSE ---
Blood rate increased to 125 mls per hour at 2029.
[2021-12-07 20:44] LABS: Glucose Point of Care 267 mg/dL (70-110)
[2021-12-07 20:55] LABS: Glucose Point of Care 228 mg/dL (70-110)
[2021-12-07] MEDS: insulin glargine 100 units/1 mL 10 UNIT SUBCUT (21:51)
--- NOTE | 2021-12-07 22:08 | PC.NURSE ---
Bilateral groin and right wrist clipped prior to cardiac catheterization as ordered.
--- NOTE | 2021-12-07 22:47 | PC.NURSE ---
Rate increased to 150 mls/hr. Lungs clear, respirations even and unlabored.
--- NOTE | 2021-12-07 23:56 | PC.NURSE ---
Consent for left heart catheterization with coronaries and grafts obtained from Mr. Thompson and placed on front of chart per request from Dr. Hernandez/nursing thermostatic controls supervisor.
[2021-12-08] VITALS (49 sets, daily range): BP systolic 117–154; BP diastolic 45–84; PULSE 69–100; RESP 0–27; TEMP 36.8; O2SAT 86–99
[2021-12-08] MEDS: pantoprazole 40 mg SDV IVP ×2 (00:08→12:15)
[2021-12-08 00:44] LABS: Basophils % 0.3 %; Eosinophils # 0.3 10^3/uL (0.0-0.8); Eosinophils % 2.7 %; Hematocrit 26.8 % (42.0-52.0); Hemoglobin 8.8 g/dL (11.7-16.6); Lymphocytes # 1.5 10^3/uL (0.8-4.8); Lymphocytes % 12.7 %; Mean Corpuscular HGB Conc 32.8 g/dL (30.0-36.0); Mean Corpuscular Hemoglobin 30.2 pg (28.0-34.0); Mean Corpuscular Volume 92.1 fl (80-94); Mean Platelet Volume 10.4 fL (7.4-10.4); Monocytes # 0.9 10^3/uL (0.2-0.9); Monocytes % 7.4 %; Neutrophils # 8.75 10^3/uL (1.8-7.7); Neutrophils % 76.3 %; Nucleated Red Blood Cells % 0 %; Platelet Count 267 10^3/cmm (130-400); Red Blood Count 2.91 10^6/uL (4.1-5.3); Red Cell Distribution Width 13.8 % (12.1-15.1); White Blood Count 11.5 10^3/uL (4.0-10.0)
[2021-12-08] MEDS: sodium bicarbonate 150 MEQ in dextrose 5% 1,000 ML 100 MEQ IV ×2 (01:40→01:47)
--- NOTE | 2021-12-08 01:43 | PC.NURSE ---
Urine in catheter tubing appears more red.
[2021-12-08 02:26] LABS: Anion Gap 16.1 (5-19); Blood Urea Nitrogen 69 mg/dL (8-23); Calcium 7.1 mg/dL (8.5-10.5); Carbon Dioxide 29 mmol/L (22-29); Chloride 97 mmol/L (98-107); Glomerular Filtration Rate 22.7 mL/min (90-130); Glucose 198 mg/dL (65-115); Osmolality Calculated 312 mOsm/kg (285-295); Potassium 4.1 mmol/L (3.5-5.1); Sodium 138 mmol/L (136-145)
--- NOTE | 2021-12-08 02:27 | PC.NURSE ---
Pt's bilateral dorsalis pedis and posterior tibial pulses marked with skin marker.
[2021-12-08] MEDS: heparin drip 25,000 UNIT/500 ML PREMIX 19 UNIT IV (03:11)
--- NOTE | 2021-12-08 03:32 | PC.NURSE ---
Pt assisted into a sitting position on the side of the bed.
--- NOTE | 2021-12-08 03:41 | PC.NURSE ---
Pt assisted back into bed. He refuses to have pillows placed under hips, and insists on being flat on his bottom. Education again provided regarding the prevention of pressure ulcers.
--- NOTE | 2021-12-08 03:59 | PC.NURSE ---
Secure message sent to Dr. Tuttle regarding order for NS at 50 mls/hr to start this morning. HCO3 will be held while pt's receiving NS.
[2021-12-08] MEDS: aspirin 81 mg EC Tablet PO (05:41)
[2021-12-08] MEDS: clopidogrel 75 mg Tablet PO (05:41)
[2021-12-08] MEDS: sodium chloride 0.9% 1,000 ML 50 ML IV ×2 (05:41→18:14)
[2021-12-08 05:47] LABS: Basophils % 0.2 %; Eosinophils # 0.3 10^3/uL (0.0-0.8); Eosinophils % 2.8 %; Hematocrit 26.5 % (42.0-52.0); Hemoglobin 8.5 g/dL (11.7-16.6); Lymphocytes # 1.2 10^3/uL (0.8-4.8); Lymphocytes % 10.7 %; Mean Corpuscular HGB Conc 32.1 g/dL (30.0-36.0); Mean Corpuscular Hemoglobin 29.8 pg (28.0-34.0); Mean Platelet Volume 10.2 fL (7.4-10.4); Monocytes # 0.9 10^3/uL (0.2-0.9); Monocytes % 8.2 %; Neutrophils # 8.67 10^3/uL (1.8-7.7); Neutrophils % 77.5 %; Nucleated Red Blood Cells % 0 %; Platelet Count 260 10^3/cmm (130-400); Red Blood Count 2.85 10^6/uL (4.1-5.3); Red Cell Distribution Width 14.2 % (12.1-15.1); White Blood Count 11.2 10^3/uL (4.0-10.0)
--- NOTE | 2021-12-08 06:11 | XACV_ITS ---
Exam Room: [facility] Ht: 163 cm Wt: 77 kg BSA: 1.89 m2 Gender: Male : 1955 Any Known Allergies: Penicillins Exam Priority: Routine Procedure(s): Procedure Description: Diagnostic procedure Procedure Description: PCI procedure Procedure Description: Left Heart Catheterization Procedure Description: Venous Graft Catheterization Procedure Description: CASILLAS Graft Catheterization Procedure Description: PTCA Procedure Description: Coronary Angiography Diagnostic Cath Status: Elective Diagnostic Findings * This is a patient who has severe underlying coronary artery disease with an occluded right, severely diffusely diseased circumflex and previous stent to his LAD. He has had bypass surgery with a vein graft to the right which underwent stenting at the insertion point about 4 months ago and a vein graft to the circumflex which is occluded. He presented with typical symptoms of unstable angina with positive troponin and EKG changes suggesting an anterolateral area of ischemia suggesting an LAD lesion. He has stage IV chronic kidney disease with hyperkalemia so his renal function was optimized and potassium brought in the normal range. * Coronary angiography reveals right coronary artery dominance. The right coronary artery is occluded at the ostium. There is a 20 to 30% ostial left main lesion. Circumflex is a small severely diffusely diseased vessel not amenable to intervention. The LAD is a moderate sized vessel and severely diffusely diseased in the distal portion and apical portion. There is a 70 to 75% in-stent restenosis of the proximal to mid LAD. * The circumflex graft is occluded at the origin. The right coronary artery graft is patent and inserts to the distal right at the level of the posterior descending artery. Graft contains mild to moderate diffuse disease. The previously placed stent at the insertion point is patent. PCI Status: Elective PCI LVEF Assessed: No PCI Indication: NSTE - ACS Interventional Findings * A wire was placed a 3.0 x 20 mm noncompliant balloon was used to angioplasty the lesion. Due to the small caliber of the vessel it was not restented. A good angiographic result was obtained. Decision for PCI with Surgical Consult: No PCI for Multi-vessel Disease: No Conclusions 1. Occluded [place] right distal right and patent stent at the insertion point. Occluded circumflex graft. 20% ostial left main lesion. In-stent restenosis of the LAD underwent balloon angioplasty with successful end result. Interventional RX Recommendation: PCI w/o planned CABG Diagnostic RX Recommendation: PCI w/o planned CABG Anticoagulation: Heparin LV EDP: 22 mmHg Pressures Phase:Rest AO : 96 / 51 ( 71 ) @ 9:07:00 AM 106 / 45 ( 74 ) @ 9:10:00 AM 100 / 59 ( 79 ) @ 9:16:00 AM LV : 110 / 18 / 22 @ 9:10:00 AM 112 / 18 / 24 @ 9:10:00 AM Valves Phase:DefaultPhase AV : 5.0 @ 8:41:38 AM AV Mean Gradient: 6.0 @ 8:41:38 AM Clinical Evaluation EBL: 5mL-10mL Procedural Details Procedure Consent Obtained. Current Diagnosis : NSTEMI. Pre-Procedure Time Out. Identified patient by full name and date of as verbalized by the patient/guarantor. Does the consent match the physician's order: Yes. Accurate & Complete Informed Consent: Yes. Inpatient/Outpatient History & Physical on Chart: Yes. If H&P is completed, is and addenduem needed: No. Visualize and Verify Site with Patient/Guarantor: N/A. Relevant Radiology Images available: Yes. The risks, benefits, and alternatives of sedation and/or procedure were discussed by physician. The patient agrees to continue. Procedure started. [facility] Clinical Fraility Score: 4: Vulnerable. Service Desk Technician Indications: ACS > 24 hours. Chest Pain Symptom Assessment: Typical Angina Symptoms. Cardiovascular Instability: No. Correct patient, site and procedure confirmed by cath team. PERRLA. Strong, equal hand dermatological surgeon bilaterally. Lungs clear x 5 lobes. IV Site on Arrival: 20 gauge in the right hand. IV Site on Arrival: 20 gauge in the left anticubital. IV Fluids: 0.9% NaCl at KVO. 100 mL infused prior to cath laboratory technician. Oxygen started at 2liters/min via nasal canula. bilateral groins was prepped with chloroprep then draped in the usual sterile fashion. Physician notified. Baseline sample Acquired. HR: 80 BPM. Equipment: 6F - Femoral. Cardiac Cath Pack. ACIST Manifold Kit Model BT 2000. Heparinized Saline (2 units/mL), 1000 mL bag. Physician arrived. The patient's stated that she would find the radiology waiting room and wait on Dr. Hernandez to update. Physician scrubbed in. Immediate Pre-Procedure Time Out. Correct Patient: Yes; Correct Procedure: Yes; Correct Site: Yes; Correct Patient Position: Yes; Correct Supplies: Yes; Dried Flammable Prep: Yes; Blood Products Available: N/A;. Lidocaine 1% infiltrated to the right groin. Arterial access obtained. Multiple views taken of left coronary artery. Catheter out. A 6 kenyan JR4 catheter in over wire. EDP Sample taken: LV 110/18,22; HR: 78 BPM; SpO2: 97%. Pullback taken: LV 112/18,24; AO 106/45(74); Mean: 6mmHg, Peak to Peak: 5mmHg, SEP: 20sec/min; HR: 79 BPM; SpO2: 98%. Cine of RCA performed, occluded. SVG to Circumflex occluded. Catheter out. A 5 kenyan MPA2 catheter in over wire. SVG's to RCA visualized. Catheter out. Diagnostic complete, starting intervention. PCI Indication: NSTE. 6 kenyan XB 3 guide catheter was inserted over the wire. [place] guidewire was advanced through the guide catheter to lesion in the prox LAD. Inflation number : 1 A MDT NC EUPHORA RX [id number] BALLOON was prepped and advanced across the Prox LAD , then inflated to 12 MIRELLA for 0:09 seconds. Inflation number: 2 The MDT NC EUPHORA RX [id number] BALLOON was reinflated across the Prox LAD, to 12 MIRELLA for 0:23 seconds. Balloon out. Wire out. Guide catheter out. Dr. Hernandez scrubbed out. Sheath(s) sutured into position with 2-0 silk and sterile 4x4's and Op-site applied over the site. No oozing or signs and symptoms of hematoma noted. Arterial sheath flushed and connected to tranducer and pressure bag with heparinized saline. Post Procedure: Pulses reassessed and unchanged. PERRLA. Strong, equal hand dermatological surgeon bilaterally. No VTE prophylaxis required. A Suture was successful obtaining hemostatsis at the Right Femoral artery insertion site. Medication's Wasted: Heparin = 1000 Units. Post-op diagnosis: In-stent stenosis of Prox LAD. Complications: none. Estimated blood loss: 5mL-10mL. Responsiveness - Normal response to verbal stimuli; alert and oriented, PERRLA. Airway - Unaffected, no intervention required; spontaneous ventilation. Circulation: W/N/L, pulses unchanged. Nausea/Vomiting: No. Patient transferred by bed to ICU. Procedure completed. Vital chart was stopped. Access Site Site: Right Femoral artery Sheath Size: 6 Fr Hemostasis Method: Suture Hemostasis Success: Successful Procedure Medications Start: 7:48 AM Stop: 7:48 AM Medication: Versed Amount: 1 mg Route: I.V. Start: 7:48 AM Stop: 7:48 AM Medication: Fentanyl Amount: 50 mcg Route: I.V. Start: 8:03 AM Stop: 8:03 AM Medication: Versed Amount: 1 mg Route: I.V. Start: 8:05 AM Stop: 8:05 AM Medication: Fentanyl Amount: 50 mcg Route: I.V. Start: 8:30 AM Stop: 8:30 AM Medication: Versed Amount: 1 mg Route: I.V. Start: 8:36 AM Stop: 8:36 AM Medication: Heparin Amount: 2000 units Route: I.V. I, the attending physician, have reviewed and verified all procedure medications. Yes, all medications given per verbal order History/Risk Factors Hypertension: Yes Dyslipidemia: Yes Peripheral Arterial Disease (PAD): No Myocardial Infarction (MA): Yes Obesity: No Renal Disease: Yes Tobacco Use: Former Prior Interventions PCI: Yes CABG: Yes Valve Surgery: No Date of PCI: 07/11/2021 Report Signatures Finalized by Dr. Hemanth Hernandez MD on 12/08/2021 09:03 AM
[2021-12-08 08:57] LABS: Partial Thromboplastin Time 54.3 SECONDS (23.9-36.7)
--- NOTE | 2021-12-08 08:59 | PC.CHAP ---
Pastoral Care Encounter/Spiritual Assessment Type of Contact [] Declined candle pourer visit [] Patient/Family/Request visit [] Outpatient visit [] Follow-up visit [] Physician referral [] Code/Alert [x] Routine visit [] Staff referral [] Actively dying [] Patient sleeping [x] Family support [] [] Out of room [] Palliative care [] [] Receiving care in room [x] Pre-surgical visit [] Trauma [] Long length of stay [x] ICU visit [x] Other: possibly going home tomorrow Relational/Emotional Strength [] Patient feels connected with others/family/visitors/staff [] Distress [] Loneliness/isolation [] Abandonment Spirituality of Patient [] Person of Ileana [] Attends Rastafarian of their Ileana [] Believes in Prayer [] Reads Bible or Amish materials [] There are Spiritual issues to be addressed Director Of Environmental Services Interventions [x] Prayer [x] Active listening [x] Non-anxious presence [x] Spiritual/emotional support [] Crisis/trauma care [] Spiritual counseling [] Bereavement support [] Provided bereavement packet [] Provided Bible/devotional materials [] Provided toy/stuffed animal, coloring book to patient or family member [] Provided Communion [] Anointing/[place] [] Salvation [x] Completed spiritual assessment [] Other: Impact on Illness or Injury [] Angry [] Fearful [] Anxious [] Often cries [] Exhaustion [] Unable to work [] Unable to attend evangelical [] Unable to walk/stand [] Unable to read [] Unable to drive [] Unable to eat/drink [] Unable to sleep [] Unable to be with family [] Patient intubated [] Other: Summary Time spent with patient
[2021-12-08] MEDS: hyDRALAzine 50 mg Tablet PO ×3 (09:20→20:53)
[2021-12-08] MEDS: atorvastatin 40 mg Tablet 80 MG PO (09:20)
[2021-12-08] MEDS: metoprolol tartrate 50 mg Tablet PO ×2 (09:20→20:53)
[2021-12-08 09:24] LABS: Glucose Point of Care 178 mg/dL (70-110)
[2021-12-08] MEDS: prazosin 1 mg Capsule 2 MG PO (09:24)
[2021-12-08 10:42] LABS: Estmated Average Glucose 134; Hemoglobin A1C 6.3 % (4.0-6.0)
[2021-12-08 11:46] LABS: Glucose Point of Care 167 mg/dL (70-110)
[2021-12-08 11:55] LABS: Partial Thromboplastin Time 33.6 SECONDS (23.9-36.7)
[2021-12-08] MEDS: sucralfate 1 gm Tablet PO ×3 (12:15→20:53)
[2021-12-08] MEDS: insulin lispro 100 unit/1 mL SUBCUT ×3 (12:16→20:54)
[2021-12-08] MEDS: morphine 4 mg/mL SDV 1 mL 2 MG IVP (14:14)
--- NOTE | 2021-12-08 14:51 | PC.SOCIAL ---
Pg 2 IMM. Explained to pt & Pg 2 IMM. No questions voiced. Provided pt a copy. Initialed, dated, & timed a copy & placed in chart.
--- NOTE | 2021-12-08 15:00 | P.PN_ITS ---
Subjective Subjective: Hospital course, labs appreciated. Seen in ICU with family at bedside post balloon angioplasty. Denies any nausea, vomiting, chest pain. States chest pain has resolved post balloon angioplasty. Lower limb pulses appreciated. Vitals/I&O/Wt Last Vital Signs Temp 98.2 F 12/08/21 09:00 Pulse 78 12/08/21 09:30 Resp 16 12/08/21 14:14 BP 143/63 12/08/21 09:30 Pulse Ox 98 12/08/21 14:14 12/08/21 12/08/21 12/08/21 06:59 14:59 22:59 Intake Total 2624.367 / 4565.842 104.467 / 104.467 Output Total 750 / 1200 230 / 230 Balance 1874.367 / 3365.842 -125.533 / -125.533 Weight last 48 hrs Weight 77.383 kg Weight 73.5 kg Physical Exam Const: COMMON NORMALS: no acute distress and patient oriented x3 HENMT: COMMON NORMALS: normocephalic and atraumatic HEAD & SCALP: normocephalic and atraumatic Eye: COMMON NORMALS: Equal, round and reactive pupils present and EOMs intact bilaterally GENERAL EYE: appearance normal, both eyes and all related structures PUPIL: Yes Equal, round and reactive pupils present Neck/C-Spine: COMMON NORMALS: no JVD Chest: OTHER: On examination, significant chest wall tenderness, bilateral sternoclavicular joints, and also nipple line Resp: COMMON NORMALS: No use of accessory muscles and clear to auscultation bilaterally EFFORT & INSPECTION: Yes symmetric chest movement AUSCULTATION: clear to auscultation bilaterally OTHER: Diminished air entry bilaterally Cardio: COMMON NORMALS: no JVD, regular rate, regular rhythm, S1 normal heart sound present, S2 normal heart sound present, No gallops present (Cardio), No murmurs present (Cardio), No rub (Cardio) and Peripheral pulses 2+ throughout RATE: regular rate RHYTHM: regular rhythm HEART SOUNDS: S1 normal heart sound present and S2 normal heart sound present PERIPHERAL PULSES: Peripheral pulses 2+ throughout GI: COMMON NORMALS: Normal to inspection, nondistended, normoactive bowel sounds present, Soft to palpation, non-tender, No hepatosplenomegaly present, no masses and no bruits AUSCULTATION: Yes normoactive bowel sounds PALPATION: Yes Soft to palpation and Yes No hepatosplenomegaly present RECTAL EXAM: Yes deferred Extremity: COMMON NORMALS: capillary refill normal, no clubbing, cyanosis or edema, no calf tenderness and no pedal edema Neuro: COMMON NORMALS: patient oriented x3, CN's II-XII intact bilaterally, moves all extremities and no focal motor deficits Psych: COMMON NORMALS: mental status grossly normal Urinary Catheter Management: Feng: Cath Placed During This Visit: yes Reason for Continuing Indwelling Catheter: Accurate Measurement of Urinary Ou tput in Critically Ill Patients Urinary Catheter Date of Insertion: 12/06/21 Urinary Catheter Time of Insertion: 00:30 Data : 12/08/21 05:32 12/08/21 01:30 Micro: Microbiology 12/06/21 00:57 Urine Culture - Final Urine Catheterized A&P Assessment and plan (1) Acute non-ST segment elevation myocardial infarction (NSTEMI) following previous myocardial infarction: Status: Acute (2) History of coronary artery stent placement: Status: Acute (3) CHF (congestive heart failure): Status: Acute Qualifiers: Heart failure type: combined systolic and diastolic Heart failure chronicity: acute Qualified Code(s): I50.41 - Acute combined systolic (congesti ve) and diastolic (congestive) heart failure (4) Hx of CABG: Status: Acute (5) Acute kidney injury superimposed on CKD: Status: Acute (6) Obstructive sleep apnea: Status: Acute (7) Ischemic cardiomyopathy: Status: Acute (8) COPD (chronic obstructive pulmonary disease): Status: Acute Qualifiers: COPD type: emphysema Emphysema type: centrilobular Qualified Code(s): J43.2 - Centrilobular emphysema (9) Sinus node dysfunction: Status: Acute (10) Diabetes mellitus, type II: Status: Acute Qualifiers: Diabetes mellitus adjunct faculty for medical terminology insulin use: without adjunct faculty for medical terminology use Diabetes mellitus complication status: with hyperglycemia Qualified Code(s): E11.65 - Type 2 diabetes mellitus with hyperglycemia (11) Essential hypertension: Status: Chronic Plan NSTEMI: Post balloon angioplasty. Appreciate cardiology recommendations. Echocardiogram done during hospital hospitalization shows akinetic mid anterior wall with dyskinetic apex suggesting an old LAD distribution OK, EF of 35%, mild pulmonary hypertension with RVSP of 40 mmHg, mildly increased RV size, moderately increased LA size. Stop heparin drip. Continue with aspirin, Plavix, statin. Continue with metoprolol. Hold off on Imdur for now. #MARCELO on CKD stage IV: Baseline creatinine 1.5-2. Has been as high as 3.3 months. Appreciate nephrology recommendations. Gentle IV hydration. Medical reconciliation done for nephrotoxic drugs. Hold off on Entresto for now. #History of coronary artery disease s/p CABG s/p PCI:: #History of COPD: Currently not in exacerbation Albuterol inhaler as needed Supplemental oxygen as needed #Anemia : Iron deficiency. Post monitor blood transfusion. Keep hemoglobin over 8. DM : SSI Carb consistent diet Monitor fingerstick glucose HTN: Goal blood pressure less than 140/90 MNG. Continue with home dose of metoprolol, hydralazine, prazosin. Sick sinus syndrome: Event monitor study has revealed significant sinus pauses at night up to 6 seconds. Patient has significant sleep apnea on sleep study, currently on CPAP at night. Cardiology on board #CODE STATUS: Full code Heparin 5000 every 12 hourly for DVT prophylaxis. Famotidine for PUD prophylaxis. Renal carb consistent diet. Attestations Medical Necessity Statement*: Requires further hospitalization for management of non-ST elevation OK post angioplasty MARCELO on CKD Time Spent in Patient Care: Greater than 35 minutes Coding Level of Care Code Acute Packer Insulation for Chg Fwd Diagnoses History of coronary artery stent placement Z95.5 Acute non-ST segment elevation myocardial infarction (NSTEMI) following previous myocardial infarction I22.2 Hx of CABG Z95.1 Acute kidney injury superimposed on CKD N17.9; N18.9 Obstructive sleep apnea G47.33 Ischemic cardiomyopathy I25.5 COPD (chronic obstructive pulmonary disease) J43.2 COPD type: emphysema Emphysema type: centrilobular CHF (congestive heart failure) I50.41 Heart failure type: combined systolic and diastolic Heart failure chronicity: acute Sinus node dysfunction I49.5 Diabetes mellitus, type II E11.65 Diabetes mellitus adjunct faculty for medical terminology insulin use: without adjunct faculty for medical terminology use Diabetes mellitus complication status: with hyperglycemia Essential hypertension I10
--- NOTE | 2021-12-08 15:32 | PC.NURSE ---
PTT results came back as 33.6. NUrse removed Sheath while another nurse, armani from [facility], was present.Nurse aspirated sheath and did not observe any clots. SHeath removed and pressure held for 20 minutes. External bleeding was minimal, no hematoma noted to surrounding area or back. Vitals signs remain within normal limits.
[2021-12-08 17:44] LABS: Glucose Point of Care 161 mg/dL (70-110)
[2021-12-08] MEDS: ferrous gluconate 324 mg Tablet PO (18:14)
--- NOTE | 2021-12-08 19:16 | PC.NURSE ---
SHift Summary: Uneventful shift. Sheath was pulled 1340 with no complications. Set to come off of bedrest restrictions at 1945. total urine output of 490mL
--- NOTE | 2021-12-08 20:35 | PC.NURSE ---
Flat time ended at 1944.
[2021-12-08 20:52] LABS: Glucose Point of Care 169 mg/dL (70-110)
[2021-12-08] MEDS: insulin glargine 100 units/1 mL 10 UNIT SUBCUT (20:54)
[2021-12-09] VITALS (15 sets, daily range): BP systolic 105–153; BP diastolic 42–68; PULSE 65–78; RESP 16–23; TEMP 37.3; O2SAT 94–99
--- NOTE | 2021-12-09 01:52 | PC.NURSE ---
Pt had 9 beat run of irregular WCT at 0118. This nurse was in with another patient at the time. It is unknown what the patient was doing at the time, or if he was symptomatic. Pt sleeping at 0145 when this nurse laid eyes on him.
[2021-12-09] MEDS: pantoprazole 40 mg SDV IVP ×2 (02:22→12:06)
[2021-12-09 03:59] LABS: Basophils % 0.2 %; Eosinophils # 0.1 10^3/uL (0.0-0.8); Eosinophils % 1.1 %; Hematocrit 26.6 % (42.0-52.0); Hemoglobin 8.3 g/dL (11.7-16.6); Lymphocytes # 0.9 10^3/uL (0.8-4.8); Mean Corpuscular HGB Conc 31.2 g/dL (30.0-36.0); Mean Corpuscular Hemoglobin 29.9 pg (28.0-34.0); Mean Corpuscular Volume 95.7 fl (80-94); Mean Platelet Volume 10.7 fL (7.4-10.4); Monocytes % 8.5 %; Neutrophils # 9.55 10^3/uL (1.8-7.7); Neutrophils % 81.5 %; Nucleated Red Blood Cells % 0 %; Platelet Count 255 10^3/cmm (130-400); Red Blood Count 2.78 10^6/uL (4.1-5.3); Red Cell Distribution Width 14.2 % (12.1-15.1); White Blood Count 11.7 10^3/uL (4.0-10.0)
[2021-12-09 04:32] LABS: Alanine Aminotransferase 15 U/L (0-41); Albumin Level 2.8 g/dL (3.5-5.2); Alkaline Phosphatase 77 IU/L (40-130); Anion Gap 17.3 (5-19); Aspartate Amino Transferase 22 U/L (0-40); Blood Urea Nitrogen 66 mg/dL (8-23); Calcium 8.3 mg/dL (8.5-10.5); Carbon Dioxide 27 mmol/L (22-29); Chloride 96 mmol/L (98-107); Globulin 2.9 g/dL (1.3-4.6); Glomerular Filtration Rate 20.2 mL/min (90-130); Glucose 102 mg/dL (65-115); Osmolality Calculated 301 mOsm/kg (285-295); Potassium 4.3 mmol/L (3.5-5.1); Sodium 136 mmol/L (136-145); Total Bilirubin 0.3 mg/dL (0.15-1.2); Total Protein 5.7 g/dL (6.6-8.7)
[2021-12-09] MEDS: clopidogrel 75 mg Tablet PO (06:21)
[2021-12-09] MEDS: sucralfate 1 gm Tablet PO ×2 (06:21→11:19)
[2021-12-09] MEDS: aspirin 81 mg EC Tablet PO (06:21)
[2021-12-09 08:09] LABS: Glucose Point of Care 110 mg/dL (70-110)
[2021-12-09] MEDS: hyDRALAzine 50 mg Tablet PO (08:10)
[2021-12-09] MEDS: prazosin 1 mg Capsule 2 MG PO (08:10)
[2021-12-09] MEDS: ferrous gluconate 324 mg Tablet PO (08:11)
[2021-12-09] MEDS: atorvastatin 40 mg Tablet 80 MG PO (08:11)
[2021-12-09] MEDS: metoprolol tartrate 50 mg Tablet PO (08:11)
--- NOTE | 2021-12-09 08:11 | PM.PN ---
Subjective Subjective: Angioplasty of the proximal to mid LAD done yesterday for in-stent restenosis. He tolerated the procedure well. The procedure was done from the right common femoral artery. No complaints today. No chest pain. Creatinine is 3.1. Vitals/I&O/Wt Last Vital Signs Temp 99.1 F 12/09/21 00:00 Pulse 66 12/09/21 06:00 Resp 20 H 12/09/21 06:00 BP 153/66 12/09/21 06:00 Pulse Ox 99 12/09/21 06:00 12/08/21 12/09/21 12/09/21 22:59 06:59 14:59 Intake Total 575 / 779.467 200 / 979.467 Output Total 60 / 490 550 / 1040 Balance 515 / 289.467 -350 / -60.533 Weight last 48 hrs Weight 170 lb 6.4 oz Weight 170 lb 9.6 oz Physical Exam Narrative: GENERAL: General he looks and feels well. HEENT: Exam within normal limits. NECK: Supple without jugular vein distention. The carotid upstroke is normal without bruits. BACK: Exam normal. LUNGS: Clear. HEART: Regular rate and rhythm. ABDOMEN: Benign without organomegaly or tenderness. EXTREMITIES: No edema. The right groin is flat, dry without bleeding, tenderness or swelling. NEUROLOGIC: Exam normal. SKIN: Unremarkable. Urinary Catheter Management: Feng: Cath Placed During This Visit: yes Reason for Continuing Indwelling Catheter: Accurate Measurement of Urinary Output in Critically Ill Patients Urinary Catheter Date of Insertion: 12/06/21 Urinary Catheter Time of Insertion: 00:30 Data : 12/09/21 03:16 12/09/21 03:16 Micro: Microbiology 12/06/21 00:57 Urine Culture - Final Urine Catheterized A&P Assessment and plan (1) Hx of CABG: Status: Acute (2) History of coronary artery stent placement: Status: Acute (3) Acute non-ST segment elevation myocardial infarction (NSTEMI) following previous myocardial infarction: Status: Acute (4) Unstable angina: Status: Acute (5) Chest pain: Status: Acute (6) Acute uremia: Status: Acute (7) Acute kidney injury superimposed on CKD: Status: Acute (8) Obstructive sleep apnea: Status: Acute (9) Ischemic cardiomyopathy: Status: Acute (10) COPD (chronic obstructive pulmonary disease): Status: Acute Qualifiers: COPD type: emphysema Emphysema type: centrilobular Qualified Code(s): J43.2 - Centrilobular emphysema (11) Hypercholesterolemia: Status: Acute (12) Anemia, iron deficiency: Status: Acute Qualifiers: Iron deficiency anemia type: other iron deficiency Qualified Code(s): D50.8 - Other iron deficiency anemias (13) Diabetes mellitus, type II: Status: Acute Qualifiers: 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 Is fine with me if he goes home today. He will need follow-up in a week in our office with the nurse practitioner Stacey Boone for a right groin check and chemistry panel. Upon his discharge he should remain on aspirin, Plavix, statin, Bumex, hydralazine, isosorbide, metolazone, metoprolol, sublingual nitro and prazosin. For now, I would stop the Entresto and it could be added back later. He should then see Dr. Somers his primary unscrambler in about 2 months. Attestations Medical Necessity Statement*: Patient is able to be discharged today. Coding Level of Care Code Established Pt Acute Mail Handler Sorter for Hong Cunningham Patient Type Established History Comprehensive Exam Comprehensive Medical Decision Making High Complexity Diagnoses Hx of CABG Z95.1 History of coronary artery stent placement Z95.5 Acute non-ST segment elevation myocardial infarction (NSTEMI) following previous myocardial infarction I22.2 Unstable angina I20.0 Chest pain R07.9 Acute uremia N19 Acute kidney injury superimposed on CKD N17.9; N18.9 Obstructive sleep apnea G47.33 Ischemic cardiomyopathy I25.5 COPD (chronic obstructive pulmonary disease) J43.2 COPD type: emphysema Emphysema type: centrilobular Hypercholesterolemia E78.00 Anemia, iron deficiency D50.8 Iron deficiency anemia type: other iron deficiency Diabetes mellitus, type II E11.65 Diabetes mellitus snf insulin use: without buttermilk drier operator use Diabetes mellitus complication status: with hyperglycemia Essential hypertension I10
[2021-12-09 08:18] LABS: Osmolality Urine 453 mOsm/kg (50-1200)
[2021-12-09] MEDS: ondansetron 2 mg/ML SDV 2 mL 4 MG IVP (08:18)
--- NOTE | 2021-12-09 09:37 | PC.NURSE ---
NUrse observed patient to have a change in cardiac rhythm. He was previously normal sinus with occaisonal PVCs for the last 2 shifts. Shortly after 0900 on 12/09/2021, the PVCs started becoming more frequent. Currently the are every other beat with occaisonal couplet or run. Patient is asymptomatic. Nurse attempted to alert Dr herrera but was unable to reach him by phone. Voalte message sent to Dr herrera. Nurse then called Dr moura and alerted him to rhythm change, no new orders received, advised to monitor at this time.
[2021-12-09] MEDS: isosorbide mononitrate ER 30 mg Tablet PO (09:46)
[2021-12-09 10:31] LABS: Magnesium 1.6 mg/dL (1.7-2.3); Phosphorus 5.2 mg/dL (2.5-4.5)
--- NOTE | 2021-12-09 10:41 | ECG_ITS ---
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 Measurements Intervals [place] Rate: 65 P: 12 UT: 108 QRS: -1 QRSD: 118 T: 150 QT: 465 QTc: 485 Interpretive Statements SINUS RHYTHM WITH SHORT UT INTERVAL WITH FREQUENT VENTRICULAR PREMATURE COMPLEXES IN A BIGEMINAL PATTERN SEPTAL MYOCARDIAL INFARCTION , OF INDETERMINATE AGE [40+ ms Q WAVE IN V1/V2] ST DEVIATION AND MODERATE T-WAVE ABNORMALITY, CONSIDER LATERAL ISCHEMIA [-0.1+ mV T-WAVE IN I/aVL/V5/V6] Compared to ECG 12/06/2021 05:57:41 Ventricular premature complex(es) now present Short UT interval now present Myocardial infarct finding now present Left-axis deviation no longer present Intraventricular conduction delay no longer present T-wave abnormality still present Possible ischemia still present Electronically Signed On 12-09-2021 20:54:50 CDT by Francis Israel M.D. [id number]
--- NOTE | 2021-12-09 10:52 | PC.NURSE ---
Ambulated patient in [place] approximately 150 feet. Patient did not report any shortness of breath or fatigue. Saturated in the mid to high 90's on 2 liters NC which is what he uses at home. PVCs became less frequent with ambulation.
[2021-12-09] MEDS: magnesium sulfate premix 2 GM/50 ML PIGGYBACK IV (11:19)
--- NOTE | 2021-12-09 11:27 | PC.NURSE ---
Feng catheter removed per orders. Catheter intact. tolerated well.
--- NOTE | 2021-12-09 11:30 | P.DS_ITS ---
Discharge Providers Date of Admission: 12/05/21 22:17 Date of Discharge: December 09, 2021 Attending Provider at Admission: Dean Danielle MD Attending Provider at Discharge: Denis Alvarado MD Consults: Cardiology: Dr. Hernandez Telemetry nephrology Primary Care Provider: Donavan Clemons MD Diagnoses at Discharge Discharge Diagnosis (1) Hx of CABG: Status: Acute (2) History of coronary artery stent placement: Status: Acute (3) Acute non-ST segment elevation myocardial infarction (NSTEMI) following previous myocardial infarction: Status: Acute (4) Unstable angina: Status: Acute (5) Chest pain: Status: Acute (6) Acute uremia: Status: Acute (7) Acute kidney injury superimposed on CKD: Status: Acute (8) Obstructive sleep apnea: Status: Acute (9) Ischemic cardiomyopathy: Status: Acute (10) COPD (chronic obstructive pulmonary disease): Status: Acute Qualifiers: COPD type: emphysema Emphysema type: centrilobular Qualified Code(s): J43.2 - Centrilobular emphysema (11) Hypercholesterolemia: Status: Acute (12) Anemia, iron deficiency: Status: Acute Qualifiers: Iron deficiency anemia type: other iron deficiency Qualified Code(s): D50.8 - Other iron deficiency anemias (13) Diabetes mellitus, type II: Status: Acute Qualifiers: 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 He has had bypass surgery with what the chart says is 2 vein grafts 1 to the circumflex and 1 to the posterior descending artery of the right.? He has had myocardial infarction.? He has had an ischemic cardiomyopathy.? 4 months ago in July of last year he was admitted with chest pain, and elevated troponin.? He underwent coronary angiography which revealed a 20% left main stenosis, a chronic 95% circumflex stenosis previously thought not amenable to intervention, previously stented LAD which was patent and a chronically occluded vein graft to the circumflex.? There was a lesion from the vein graft to the right into the rampart vessel at the insertion point.? A stent was placed. He also has stage IV chronic kidney disease and has had contrast-induced nephropathy in the past.? His creatinine runs around 2.5-3 and his glomerular filtration rate runs about 20.? He has a long list of other medical problems including COPD, tobacco abuse, sleep apnea, dyslipidemia, [id number] diabetes, hypertension, systolic heart failure, anemia among others. He states that he has intermittently been having chest pain since July when he had the stent placed.? His complains that he cannot do very much.? When he tries to walk or do anything he has chest discomfort.? He takes nitroglycerin frequently.? He was brought in last evening with persistent severe chest pain.? He was placed on intravenous nitroglycerin and heparin.? His chest pain has resolved.? His first troponin was 15, the second 35 and the third 121.? His BNP is 1597.? His initial EKG showed fairly significant ST segment depression in leads I, L and V4 through V6.? These ST changes improved with the nitroglycerin and heparin.? His chest x-ray shows no CHF.? Another echo was done and reveals dyskinesis of the apex and akinesis of the mid anterior wall.? His ejection fraction is about 35%.? This is unchanged from the echo done just 4 months ago. Cardiology and nephrology services were consulted. He was started on gentle IV hydration while monitoring for fluid overload. Entresto was withheld in view of mild MARCELO on CKD and possible need of cardiac angiogram. He underwent cardiac angiogram on 12/08 along with balloon angioplasty. Report as below. His creatinine remained stable. He has been discharged in hemodynamically stable condition with advised to follow-up with cardiology nurse practitioner within next 1 week and for follow-up BMP. He is been discharged on aspirin, Plavix, statin,hydralazine, Imdur, metolazone, metoprolol and sublingual nitro along with prazosin. For now Entresto and Bumex have been withheld which can be restarted as per the recommendations from cardiology nurse practitioner in 1 week. Physical Exam Const: COMMON NORMALS: no acute distress and patient oriented x3 HENMT: COMMON NORMALS: normocephalic and atraumatic HEAD & SCALP: normocephalic and atraumatic Eye: COMMON NORMALS: Equal, round and reactive pupils present and EOMs intact bilaterally GENERAL EYE: appearance normal, both eyes and all related structures PUPIL: Yes Equal, round and reactive pupils present Neck/C-Spine: COMMON NORMALS: no JVD Chest: OTHER: On examination, significant chest wall tenderness, bilateral sternoclavicular joints, and also nipple line Resp: COMMON NORMALS: No use of accessory muscles and clear to auscultation bilaterally EFFORT & INSPECTION: Yes symmetric chest movement AUSCULTATION: clear to auscultation bilaterally OTHER: Diminished air entry bilaterally Cardio: COMMON NORMALS: no JVD, regular rate, regular rhythm, S1 normal heart sound present, S2 normal heart sound present, No gallops present (Cardio), No murmurs present (Cardio), No rub (Cardio) and Peripheral pulses 2+ throughout RATE: regular rate RHYTHM: regular rhythm HEART SOUNDS: S1 normal heart sound present and S2 normal heart sound present PERIPHERAL PULSES: Peripheral pulses 2+ throughout GI: COMMON NORMALS: Normal to inspection, nondistended, normoactive bowel sounds present, Soft to palpation, non-tender, No hepatosplenomegaly present, no masses and no bruits AUSCULTATION: Yes normoactive bowel sounds PALPATION: Yes Soft to palpation and Yes No hepatosplenomegaly present RECTAL EXAM: Yes deferred Extremity: COMMON NORMALS: capillary refill normal, no clubbing, cyanosis or edema, no calf tenderness and no pedal edema Neuro: COMMON NORMALS: patient oriented x3, CN's II-XII intact bilaterally, moves all extremities and no focal motor deficits Psych: COMMON NORMALS: mental status grossly normal Urinary Catheter Management: Feng: Cath Placed During This Visit: yes Reason for Continuing Indwelling Catheter: Accurate Measurement of Urinary Output in Critically Ill Patients Urinary Catheter Date of Insertion: 12/06/21 Urinary Catheter Time of Insertion: 00:30 Discharge Data Studies Completed and Pending Completed Studies During Hospitalization Category Date Time Status [employer]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 echo complete* [id number] Routine Ultrasound 12/06/21 01:03 Completed Pending at discharge Category Date Time Status CBC Auto Diff [Complete Blood Count w/Auto] AM LABS Lab 12/10/21 04:00 Ordered Radiology Impressions Chest X-Ray 12/05/21 21:20 IMPRESSION: No acute findings. Echocardiogram: CONCLUSIONS ?The ventricle is normal in size.? There is akinesis of the mid?anterior wall with dyskinesis of the apex suggesting an old LAD ?distribution myocardial infarction.? The remainder the ventricle?contracts normally.? The ejection fraction is about 35%.? ?Diastolic function was not evaluated. ?Normal right ventricular size and systolic function. Mild?pulmonary hypertension, RVSP 39.6 mmHg. ?Mildly increased right atrial size. ?Moderately increased left atrial size. ?Structurally normal mitral valve. Mild mitral valve?regurgitation. ?The previous study, done 4 months ago, was a limited 2D study?only.? The left ventricular function was similar at that time. ?Dr. Hemanth Hernandez MD ?(Electronically Signed) ?Final Date:? ? ? 06 December 2021 ? 08:06 Case Folder finding: Diagnostic Findings ? * This is a patient who has severe underlying coronary artery disease with an occluded right, severely diffusely diseased circumflex and previous stent to his LAD.? He has had bypass surgery with a vein graft to the right which underwent stenting at the insertion point about 4 months ago and a vein graft to the circumflex which is occluded.? He presented with typical symptoms of unstable angina with positive troponin and EKG changes suggesting an anterolateral area of ischemia suggesting an LAD lesion.? He has stage IV chronic kidney disease with hyperkalemia so his renal function was optimized and potassium brought in the normal range. ? * Coronary angiography reveals right coronary artery dominance.? The right coronary artery is occluded at the ostium.? There is a 20 to 30% ostial left main lesion.? Circumflex is a small severely diffusely diseased vessel not amenable to intervention.? The LAD is a moderate sized vessel and severely diffusely diseased in the distal portion and apical portion.? There is a 70 to 75% in-stent restenosis of the proximal to mid LAD. ? * The circumflex graft is occluded at the origin.? The right coronary artery graft is patent and inserts to the distal right at the level of the posterior descending artery.? Graft contains mild to moderate diffuse disease.? The previously placed stent at the insertion point is patent. PCI Status: ? ? Elective PCI LVEF Assessed: ? ? No PCI Indication: ? ? NSTE - ACS Interventional Findings ? * A wire was placed a 3.0 x 20 mm noncompliant balloon was used to angioplasty the lesion.? Due to the small caliber of the vessel it was not restented.? A good angiographic result was obtained. Decision for PCI with Surgical Consult: ? ? No PCI for Multi-vessel Disease: ? ? No Conclusions ? 1. Occluded rampart right distal right and patent stent at the insertion po int.? Occluded circumflex graft.? 20% ostial left main lesion.? In-stent restenosis of the LAD underwent balloon angioplasty with successful end result. Laboratory Results WBC 11.7 10^3/uL (4.0-10.0) H 12/09/21 03:16 RBC 2.78 10^6/uL (4.1-5.3) L 12/09/21 03:16 Hgb 8.3 g/dL (11.7-16.6) L 12/09/21 03:16 Hct 26.6 % (42.0-52.0) L 12/09/21 03:16 MCV 95.7 fl (80-94) H 12/09/21 03:16 MCH 29.9 pg (28.0-34.0) 12/09/21 03:16 MCHC 31.2 g/dL (30.0-36.0) 12/09/21 03:16 RDW 14.2 % (12.1-15.1) 12/09/21 03:16 Plt Count 255 10^3/cmm (130-400) 12/09/21 03:16 MPV 10.7 fL (7.4-10.4) H 12/09/21 03:16 Neut % (Auto) 81.5 % 12/09/21 03:16 Lymph % (Auto) 8.0 % 12/09/21 03:16 [place] % (Auto) 8.5 % 12/09/21 03:16 Eos % (Auto) 1.1 % 12/09/21 03:16 Baso % (Auto) 0.2 % 12/09/21 03:16 Neut # (Auto) 9.55 10^3/uL (1.8-7.7) H 12/09/21 03:16 Lymph # (Auto) 0.9 10^3/uL (0.8-4.8) 12/09/21 03:16 [place] # (Auto) 1.0 10^3/uL (0.2-0.9) H 12/09/21 03:16 Eos # (Auto) 0.1 10^3/uL (0.0-0.8) 12/09/21 03:16 Baso # (Auto) 0.0 10^3/uL (0.0-0.1) 12/09/21 03:16 Nucleated RBC % (auto) 0 % 12/09/21 03:16 Nucleated RBCs # 0.0 /100WBC 12/09/21 03:16 ESR 31 mm/hr (0-10) H 12/06/21 03:28 APTT 33.6 SECONDS (23.9-36.7) 12/08/21 11:15 D-Dimer 0.48 ug/mIFEU (0-0.59) 12/05/21 21:40 Sodium 136 mmol/L (136-145) 12/09/21 03:16 Potassium 4.3 mmol/L (3.5-5.1) 12/09/21 03:16 Chloride 96 mmol/L (98-107) L 12/09/21 03:16 Carbon Dioxide 27 mmol/L (22-29) 12/09/21 03:16 Anion Gap 17.3 (5-19) 12/09/21 03:16 BUN 66 mg/dL (8-23) H 12/09/21 03:16 Creatinine 3.1 mg/dL (0.7-1.2) H 12/09/21 03:16 GFR Calculation 20.2 mL/min (90-130) L 12/09/21 03:16 Glucose 102 mg/dL (65-115) 12/09/21 03:16 POC Glucose 110 mg/dL (70-110) 12/09/21 07:51 Estimat Average Glucose 134 12/08/21 05:32 Hemoglobin A1c 6.3 % (4.0-6.0) H 12/08/21 05:32 Calculated Osmolality 301 mOsm/kg (285-295) H 12/09/21 03:16 Calcium 8.3 mg/dL (8.5-10.5) L 12/09/21 03:16 Phosphorus 5.2 mg/dL (2.5-4.5) H 12/09/21 09:55 Magnesium 1.6 mg/dL (1.7-2.3) L 12/09/21 09:55 Total Bilirubin 0.3 mg/dL (0.15-1.2) 12/09/21 03:16 AST 22 U/L (0-40) 12/09/21 03:16 ALT 15 U/L (0-41) 12/09/21 03:16 Alkaline Phosphatase 77 IU/L (40-130) 12/09/21 03:16 Troponin T Baseline 15 ng/L (0-15) 12/05/21 21:40 Troponin T 120 Minute 34.87 ng/L (0-15) H 12/05/21 23:39 Delta Troponin T 19.87 ABS# (0-10) H* 12/05/21 23:39 Troponin T Hi Sens 6Hr 121.1 ng/L (0-15) H 12/06/21 03:28 Troponin T Hi Sens 6Hr Delta 106.1 ng/L (0-12) H* 12/06/21 03:28 C-Reactive Protein 3.9 mg/L (0.0-4.9) 12/06/21 03:28 NT-Pro-B Natriuret Pep 1597 pg/mL (0-125) H 12/05/21 23:39 Total Protein 5.7 g/dL (6.6-8.7) L 12/09/21 03:16 Albumin 2.8 g/dL (3.5-5.2) L 12/09/21 03:16 Globulin 2.9 g/dL (1.3-4.6) 12/09/21 03:16 Triglycerides 137 mg/dL (0-150) 12/06/21 03:28 Cholesterol 118 mg/dL (0-200) 12/06/21 03:28 LDL Cholesterol, Calc 62 mg/dL (50-129) 12/06/21 03:28 HDL Cholesterol 29 mg/dL (60-100) L 12/06/21 03:28 LDL/HDL Ratio 2.14 RATIO (0.00-3.22) 12/06/21 03:28 Cholesterol/HDL Ratio 4.07 mg/dL (1.0-5.00) 12/06/21 03:28 Procalcitonin 0.08 ng/mL (0-0.5) 12/06/21 03:28 TSH 2.87 uIU/mL (0.27-4.20) 12/05/21 23:39 Urine Color Yellow (Yellow) 12/06/21 00:57 Urine Appearance Clear (CLEAR) 12/06/21 00:57 Urine pH 5 (5-7) 12/06/21 00:57 Ur Specific [place] 1.015 (1.005-1.030) 12/06/21 00:57 Urine Protein 3+ (Negative) H 12/06/21 00:57 Urine Glucose (UA) Norm (Normal) 12/06/21 00:57 Urine Ketones Negative (Negative) 12/06/21 00:57 Urine Blood 2+ (Negative) H 12/06/21 00:57 Urine Nitrate Negative (Negative) 12/06/21 00:57 Urine Bilirubin Neg (Negative) 12/06/21 00:57 Urine Urobilinogen Norm mg/dL (Negative) 12/06/21 00:57 Ur Leukocyte Esterase Negative (Negative) 12/06/21 00:57 Urine RBC 15-25 /hpf (0-2) H 12/06/21 00:57 Urine WBC 0-4 /hpf (0-5) H 12/06/21 00:57 Ur Eosinophil Smear 0 (0-0) 12/06/21 00:57 Ur Squamous Epith Cells 0-4 /hpf (0-5) H 12/06/21 00:57 Amorphous Sediment Not Reportable 12/06/21 00:57 Urine Bacteria 1+ /hpf (NONE) H 12/06/21 00:57 Urine Mucus 1+ /hpf 12/06/21 00:57 Urine Eosinophils No eosinophils seen 12/06/21 00:57 Urine Osmolality 453 mOsm/kg (50-1200) 12/06/21 00:57 Ur Random Sodium 64 mmol/L 12/06/21 00:57 Ur Random Potassium 38 mmol/L 12/06/21 00:57 Ur Random Chloride 58 mmol/L 12/06/21 00:57 Urine Creatinine 80 mg/dL (39-259) 12/06/21 00:57 Urine Opiates Screen Positive ng/mL (Negative) H 12/06/21 00:57 Ur Barbiturates Screen Negative ng/mL (Negative) 12/06/21 00:57 Ur Phencyclidine Scrn Negative ng/mL (Negative) 12/06/21 00:57 Ur Amphetamines Screen Negative ng/mL (Negative) 12/06/21 00:57 U Benzodiazepines Scrn Negative ng/mL (Negative) 12/06/21 00:57 Urine Cocaine Screen Negative ng/mL (Negative) 12/06/21 00:57 U Marijuana (THC) Screen Negative ng/mL (Negative) 12/06/21 00:57 Blood Type A Positive 12/07/21 17:21 Rho(D) Type Positive 12/07/21 17:21 Antibody Screen Negative 12/07/21 17:21 Crossmatch See Detail 12/07/21 17:21 Vitals Last Vital Signs Temp 99.1 F 12/09/21 00:00 Pulse 71 12/09/21 08:00 Resp 16 12/09/21 08:00 BP 153/66 12/09/21 06:00 Pulse Ox 97 12/09/21 08:00 Discharge Plan Discharge Patient Disposition: Home Condition: Stable Prescriptions: Continued hydralazine 50 mg tablet 50 mg PO TID 0RF Rx Instructions: 340 B medications Gas Relief (simethicone) 250 mg capsule 250 mg PO QID PRN (Reason: Abdominal Discomfort) 0RF prazosin 1 mg capsule 2 mg PO DAILY 0RF Rx Instructions: 340 B medications ascorbic acid (vitamin C) [Vitamin C] 500 mg tablet 500 mg PO QAM Qty: 100 5RF Rx Instructions: 340 B medications aspirin 81 mg tablet,delayed release (DR/EC) 81 mg PO QAM 90 Days Qty: 90 3RF Rx Instructions: 340 B medications atorvastatin 40 mg tablet 80 mg PO DAILY 30 Days Qty: 60 5RF Rx Instructions: 340 B medications Symbicort 80-4.5 mcg/actuation HFA aerosol inhaler 2 inh inhalation BID 30 Days Qty: 10.2 5RF Rx Instructions: 340 B medications clopidogrel 75 mg tablet 75 mg PO QAM 30 Days Qty: 30 5RF Rx Instructions: 340 B medications ferrous sulfate 325 mg (65 mg iron) tablet,delayed release (DR/EC) 325 mg PO BIDWM Qty: 100 3RF Rx Instructions: 340 B medications glimepiride 2 mg tablet 2 mg PO BID Qty: 60 5RF Rx Instructions: 340 B medications isosorbide mononitrate 30 mg tablet extended release 24 hr 30 mg PO BID 30 Days Qty: 60 5RF Rx Instructions: 340 B medications loratadine [Claritin] 10 mg tablet 10 mg PO DAILY PRN (Reason: Allergies) Qty: 90 3RF Rx Instructions: 340 B medications metoprolol tartrate 50 mg tablet 50 mg PO BID@0900,2100 30 Days Qty: 60 5RF Rx Instructions: 340 B medications nitroglycerin [Nitrostat] 0.4 mg tablet, sublingual 0.4 mg sublingual Q5M PRN (Reason: chest pain) Qty: 25 3RF Rx Instructions: do not exceed 3 doses per episode 340 B medications pantoprazole 40 mg tablet,delayed release (DR/EC) 40 mg PO DAILY@12 Qty: 30 5RF Rx Instructions: 340 B medications Klor-Con M20 20 mEq tablet,ER particles/crystals 20 meq PO DAILY 30 Days Qty: 30 5RF Rx Instructions: 340 B medications vitamin E 400 unit capsule 400 unit PO QAM Qty: 90 3RF Rx Instructions: 340 B medications (DME) One touch test strips See Rx Instructions .Route .MEDSUPPLY Qty: 1 0RF Rx Instructions: As directed Glucose testing strips Held Entresto 24-26 mg tablet 1 tab PO BID Qty: 60 1RF Hold Instructions: Resume on 12/23/21. bumetanide 1 mg tablet 2 mg PO DAILY 30 Days Qty: 60 5RF Hold Instructions: Resume on 12/23/21. Rx Instructions: 340 B medications Discontinued metformin 1,000 mg tablet 1,000 mg PO BID Qty: 180 3RF Rx Instructions: 340 B medications metolazone 5 mg tablet 10 mg PO DAILY 30 Days Qty: 60 5RF Rx Instructions: 340 B medications Discharge Orders: Discharge Order (Routine); Ordered 12/09/21 Ordered By: Denis Alvarado Referrals: Donavan Clemons MD [Primary Care Provider] - 4-7 days Yanci Somers MD [Physician] - 2 months Stacey Boone FNP [Nurse Practitioner] - 4-7 days (Repeat BMP) Discharge Diet: Usual diet Discharge Activity: Resume usual activity and Increase activity as tolerated Patient Instructions: Coronary Angioplasty (DC), Opioid Safety Activity Restrictions/Additional Instructions: Please follow-up with Stacey Boone/cardiology nurse practitioner within next 1 week for groin check and repeat BMP. Please follow-up with cardiology service with Dr. Somers in 2 months. Metformin has been discontinued. Metolazone has been discontinued. For now do not take Bumex and Entresto for next 2 weeks. It will be restarted as per the discretion of cardiology service on repeat BMP in 1 week. Discharge Attestations Time Spent in Discharge Care*: greater than 30 min Specific Discharge Activities: educating patient, educating and/or supporting family/caregiver, discussing with pcp/other providers, discussing with caser shoe parts/social workers/dc planners, documenting/other paperwork and evaluating patient/reviewing data Status at Discharge: Cognitive status at discharge: cognitively intact , Behavioral status at discharge: cooperative , Functional status at discharge: independent ambulation , Overall status at discharge: patient is back to baseline Quality Metrics Clinical Quality Measures [ No reported AMI, CVA or VTE this stay] Coding Level of Care Code Acute Chg FW DC note History Comprehensive Exam Comprehensive Medical Decision Making High Complexity Diagnoses Hx of CABG Z95.1 History of coronary artery stent placement Z95.5 Acute non-ST segment elevation myocardial infarction (NSTEMI) following previous myocardial infarction I22.2 Unstable angina I20.0 Chest pain R07.9 Acute uremia N19 Acute kidney injury superimposed on CKD N17.9; N18.9 Obstructive sleep apnea G47.33 Ischemic cardiomyopathy I25.5 COPD (chronic obstructive pulmonary disease) J43.2 COPD type: emphysema Emphysema type: centrilobular Hypercholesterolemia E78.00 Anemia, iron deficiency D50.8 Iron deficiency anemia type: other iron deficiency Diabetes mellitus, type II E11.65 Diabetes mellitus care home insulin use: without care home use Diabetes mellitus complication status: with hyperglycemia Essential hypertension I10
[2021-12-09 11:50] LABS: Glucose Point of Care 218 mg/dL (70-110)
[2021-12-09] MEDS: insulin lispro 100 unit/1 mL SUBCUT (12:05)
--- NOTE | 2021-12-09 13:24 | PC.NURSE ---
Discharged patient. Removed IVs, both intact. Feng removed. Medication, activity, and followup appointment education provided to the patient. Patient soignature form signed.
== END 2021-12-09 13:32 | disposition home or self-care (01) | DRG 250 ==
LOC: ER 21:57 → ICU 22:36 → MEDSURG 12-07 14:40 → ICU 12-07 17:40
PROVIDERS: Internal Medicine; Internal Medicine Cardiovascular Disease; Admitting Provider Family Medicine; Emergency Provider Emergency Medicine; PCP Family Medicine Adult Medicine; Visit Provider Student in an Organized Health Care Education/Training Program
PROC: 02703ZZ Dilation of Coronary Artery, One Artery, Percutaneous Approach (ICD-10-PCS; principal; 2021-12-08 11:15)
PROC: 02703ZZ Dilation of Coronary Artery, One Artery, Percutaneous Approach (ICD-10-PCS; 2021-12-08 11:15)
DX: T82.855A Stenosis of coronary artery stent, initial encounter (principal); I21.4 Non-ST elevation (NSTEMI) myocardial infarction; N17.9 Acute kidney failure, unspecified; N18.4 Chronic kidney disease, stage 4 (severe); I25.110 Atherosclerotic heart disease of native coronary artery with unstable angina pectoris; I25.710 Atherosclerosis of autologous vein coronary artery bypass graft(s) with unstable angina pectoris; Z95.5 Presence of coronary angioplasty implant and graft; G47.33 Obstructive sleep apnea (adult) (pediatric); I25.5 Ischemic cardiomyopathy; J43.2 Centrilobular emphysema; E78.00 Pure hypercholesterolemia, unspecified; D50.8 Other iron deficiency anemias; E11.65 Type 2 diabetes mellitus with hyperglycemia; I12.9 Hypertensive chronic kidney disease with stage 1 through stage 4 chronic kidney disease, or unspecified chronic kidney disease; Z87.891 Personal history of nicotine dependence; Z95.1 Presence of aortocoronary bypass graft; Z79.82 Long term (current) use of aspirin; Z79.84 Long term (current) use of oral hypoglycemic drugs; I49.5 Sick sinus syndrome; Y71.2 Prosthetic and other implants, materials and accessory cardiovascular devices associated with adverse incidents; T82.858A Stenosis of other vascular prosthetic devices, implants and grafts, initial encounter; I25.2 Old myocardial infarction; Z66 Do not resuscitate; E87.5 Hyperkalemia; D63.1 Anemia in chronic kidney disease; E11.22 Type 2 diabetes mellitus with diabetic chronic kidney disease
CPT/HCPCS: 36415; 36416; 36430; 51702; 71045; 80048; 80053; 80061; 80069; 80306; 81001; 82043; 82274; 82310; 82436; 82570; 82962; 83036; 83735; 83880; 83935; 83970; 84100; 84133; 84145; 84300; 84443; 84484; 85025; 85378; 85651; 85730; 85999; 86140; 86850; 86900; 86920; 87086; 92920; 93005; 93306; 93455; 94664; 96360; 96372; 96374; 96375; 99152; 99153; 99285; C1725; C1769; C1887; C1894; C9113; J1170; J1644; J1815 ×2; J2250; J2270; J2405; J3010; J3475; J3490; J7030; J7050; J7799; P9016; Q0163; Q9967

== ENCOUNTER 2021-12-08 13:15 | Outpatient (RCR) | payer MEDICARE, SELFPAY | END 2022-01-06 23:59 | disposition home or self-care (01) | LOC: CR 13:15 | PROVIDERS: PCP Family Medicine Adult Medicine; Referring Provider Internal Medicine; Visit Provider Internal Medicine | DX: Z95.5 Presence of coronary angioplasty implant and graft (principal) | CPT/HCPCS: 93798 ==

== ENCOUNTER → 2021-12-31 10:13 | Outpatient (BNVA) | payer MEDICARE, SELFPAY | PROVIDERS: PCP Family Medicine Adult Medicine; Visit Provider Internal Medicine Pulmonary Disease | DX: J43.2 Centrilobular emphysema (principal); I50.41 Acute combined systolic (congestive) and diastolic (congestive) heart failure; N18.30 Chronic kidney disease, stage 3 unspecified; I25.118 Atherosclerotic heart disease of native coronary artery with other forms of angina pectoris; E11.65 Type 2 diabetes mellitus with hyperglycemia; I10 Essential (primary) hypertension | CPT/HCPCS: 99214 ==

== ENCOUNTER → 2022-01-01 10:47 | Outpatient (BNVA) | payer MEDICARE, SELFPAY | PROVIDERS: PCP Family Medicine Adult Medicine; Visit Provider Nurse Practitioner Family | DX: I25.10 Atherosclerotic heart disease of native coronary artery without angina pectoris (principal); Z95.1 Presence of aortocoronary bypass graft; I10 Essential (primary) hypertension; Z87.891 Personal history of nicotine dependence | CPT/HCPCS: 36415; 80069; 83880; 99213; 99214 ==

== ENCOUNTER 2022-01-08 13:09 | Outpatient (RCR) | payer MEDICARE, SELFPAY | END 2022-02-05 23:59 | disposition home or self-care (01) | LOC: CR 13:09 | PROVIDERS: PCP Family Medicine Adult Medicine; Referring Provider Internal Medicine; Visit Provider Internal Medicine | DX: Z95.5 Presence of coronary angioplasty implant and graft (principal); I10 Essential (primary) hypertension | CPT/HCPCS: 80048; 83880; 93798 ==

== ENCOUNTER → 2022-01-29 11:20 | Outpatient (BNVA) | payer MEDICARE, SELFPAY | PROVIDERS: PCP Family Medicine Adult Medicine; Visit Provider Family Medicine Adult Medicine | DX: E11.22 Type 2 diabetes mellitus with diabetic chronic kidney disease (principal); N18.4 Chronic kidney disease, stage 4 (severe); I10 Essential (primary) hypertension; E11.9 Type 2 diabetes mellitus without complications; I25.10 Atherosclerotic heart disease of native coronary artery without angina pectoris; I50.9 Heart failure, unspecified; N17.9 Acute kidney failure, unspecified; N18.9 Chronic kidney disease, unspecified | CPT/HCPCS: 80048; 80069; 82043; 82310; 83880; 83970 ==

== ENCOUNTER → 2022-02-13 10:47 | Outpatient (BNVA) | payer MEDICARE, SELFPAY | PROVIDERS: PCP Family Medicine Adult Medicine; Visit Provider Internal Medicine | DX: I25.10 Atherosclerotic heart disease of native coronary artery without angina pectoris (principal); I13.0 Hypertensive heart and chronic kidney disease with heart failure and stage 1 through stage 4 chronic kidney disease, or unspecified chronic kidney disease; E11.22 Type 2 diabetes mellitus with diabetic chronic kidney disease; N18.4 Chronic kidney disease, stage 4 (severe); I50.9 Heart failure, unspecified; N17.9 Acute kidney failure, unspecified; Z87.891 Personal history of nicotine dependence; Z79.84 Long term (current) use of oral hypoglycemic drugs; I45.5 Other specified heart block | CPT/HCPCS: 99214 ==

== ENCOUNTER 2022-02-18 11:54 | Outpatient (RCR) | payer SELFPAY | END 2022-03-08 23:59 | disposition home or self-care (01) | LOC: CR 11:54 | PROVIDERS: PCP Family Medicine Adult Medicine; Referring Provider Internal Medicine; Visit Provider Internal Medicine | DX: Z95.5 Presence of coronary angioplasty implant and graft (principal) ==

== ENCOUNTER 2022-03-09 12:49 | Outpatient (RCR) | payer SELFPAY | END 2022-04-08 23:59 | disposition home or self-care (01) | LOC: CR 12:49 | PROVIDERS: PCP Family Medicine Adult Medicine; Referring Provider Internal Medicine; Visit Provider Internal Medicine | DX: Z95.5 Presence of coronary angioplasty implant and graft (principal) ==

== ENCOUNTER → 2022-03-26 10:10 | Outpatient (BNVA) | payer SELFPAY | PROVIDERS: PCP Family Medicine Adult Medicine; Visit Provider Family Medicine Adult Medicine | DX: E11.22 Type 2 diabetes mellitus with diabetic chronic kidney disease (principal); N17.9 Acute kidney failure, unspecified; N18.9 Chronic kidney disease, unspecified | CPT/HCPCS: 80048; 80053; 80061; 83036 ==

== ENCOUNTER 2022-04-09 13:00 | Outpatient (RCR) | payer SELFPAY | END 2022-05-08 23:59 | disposition home or self-care (01) | LOC: CR 13:00 | PROVIDERS: PCP Family Medicine Adult Medicine; Referring Provider Internal Medicine; Visit Provider Internal Medicine | DX: Z95.5 Presence of coronary angioplasty implant and graft (principal) ==

== ENCOUNTER → 2022-06-04 10:34 | Outpatient (BNVA) | payer SELFPAY | PROVIDERS: PCP Family Medicine Adult Medicine; Visit Provider Family Medicine Adult Medicine | DX: E11.22 Type 2 diabetes mellitus with diabetic chronic kidney disease (principal); N18.4 Chronic kidney disease, stage 4 (severe); I50.9 Heart failure, unspecified; I13.0 Hypertensive heart and chronic kidney disease with heart failure and stage 1 through stage 4 chronic kidney disease, or unspecified chronic kidney disease | CPT/HCPCS: 80053; 80061; 83036; 85025 ==

== ENCOUNTER 2022-06-09 10:05 | Outpatient (RCR) | payer SELFPAY | END 2022-07-08 23:59 | disposition home or self-care (01) | LOC: CR 10:05 | PROVIDERS: PCP Family Medicine Adult Medicine; Referring Provider Internal Medicine; Visit Provider Internal Medicine | DX: Z95.5 Presence of coronary angioplasty implant and graft (principal) ==

== ENCOUNTER 2022-07-07 14:33 | Outpatient (CLI) | payer MEDICARE, SELFPAY ==
--- NOTE | 2022-07-07 15:45 | USCV_ITS ---
Luis Alfredo Thompson Age: 67 Gender: M : 1955 Exam Date: 07/07/2022 15:10 Ordering Phys: Donavan Clemons MD Technologist: CORBIN Exam Location: [facility] [place] Indication: RLE PAIN AND SWELLING [id number] HISTORY: Lower extremity swelling. Lower extremity pain. PROCEDURES: Venous duplex imaging was performed in only the right lower extremity. The following venous structures were evaluated: common femoral vein, profunda vein, proximal portion of the greater saphenous vein, superficial femoral vein, and the popliteal vein. In addition, the posterior tibial and peroneal trunk were evaluated. Serial compression, augmentation maneuvers, and spectral Doppler flow evaluation were performed. FINDINGS: No evidence of DVT seen in any vessel visualized at this time. CONCLUSIONS No evidence of right lower extremity DVT. Dilan Sim MD (Electronically Signed) Final Date: 07 July 2022 17:02 S
== END 2022-07-07 14:34 | disposition home or self-care (01) ==
LOC: RAD 14:34
PROVIDERS: PCP Family Medicine Adult Medicine; Visit Provider Family Medicine Adult Medicine
DX: M79.661 Pain in right lower leg (principal); M79.89 Other specified soft tissue disorders
CPT/HCPCS: 93971

== ENCOUNTER → 2022-08-14 10:19 | Outpatient (BNVA) | payer MEDICARE, SELFPAY | PROVIDERS: PCP Family Medicine Adult Medicine; Visit Provider Internal Medicine | DX: I25.10 Atherosclerotic heart disease of native coronary artery without angina pectoris (principal); I45.5 Other specified heart block; I13.0 Hypertensive heart and chronic kidney disease with heart failure and stage 1 through stage 4 chronic kidney disease, or unspecified chronic kidney disease; E11.22 Type 2 diabetes mellitus with diabetic chronic kidney disease; N18.4 Chronic kidney disease, stage 4 (severe); I50.9 Heart failure, unspecified; Z87.891 Personal history of nicotine dependence; Z79.84 Long term (current) use of oral hypoglycemic drugs | CPT/HCPCS: 99214 ==

== ENCOUNTER 2022-08-24 20:27 | Inpatient (IN) | payer MEDICARE, SELFPAY ==
[2022-08-24] VITALS (7 sets, daily range): BP systolic 166–182; BP diastolic 67–80; PULSE 81–102; RESP 24–36; O2SAT 87–98
--- NOTE | 2022-08-24 20:37 | ECG_ITS ---
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 Measurements Intervals [place] Rate: 96 P: 74 [place]: 156 QRS: 0 QRSD: 142 T: 95 QT: 378 QTc: 478 Interpretive Statements SINUS RHYTHM POSSIBLE LEFT ATRIAL ENLARGEMENT [-0.1mV P-WAVE IN V1/V2] INTRAVENTRICULAR CONDUCTION DELAY [130+ ms QRS DURATION] Compared to ECG 12/09/2021 11:18:21 Intraventricular conduction delay now present Short [place] interval no longer present Myocardial infarct finding no longer present T-wave abnormality no longer present Possible ischemia no longer present Electronically Signed On 08-25-2022 14:45:34 DIPLOMATIC INTERPRETER/TRANSLATOR by Francis Israel M.D. [email or web address]
--- NOTE | 2022-08-24 20:52 | XRR_ITS ---
PROCEDURE INFORMATION: Exam: XR Chest Exam date and time: 08/24/2022 9:12 PM Age: 67 years old Clinical indication: Angina and shortness of breath; Prior surgery; Surgery type: Cabg, stents TECHNIQUE: Imaging protocol: Radiologic exam of the chest. Views: 1 view. COMPARISON: CR XR chest 1V portable [id number] 12/05/2021 9:41 PM FINDINGS: Lungs: There is mild pulmonary venous congestion. There are increased interstitial markings suggesting interstitial edema. Pleural spaces: There may be small right pleural effusion. Heart/Mediastinum: The heart is moderately enlarged. Bones/joints: Sternotomy wires and mediastinal surgical clips are present, consistent with previous coronary arterial bypass grafting. XR/XR chest 1V portable [id number] IMPRESSION: Findings of congestive failure and interstitial edema.
--- NOTE | 2022-08-24 20:58 | ED_ITS ---
HPI - Chest Pain General: Chief Complaint: Chest Pain Stated Complaint: SOB, CP Time Seen by Provider: 08/24/22 20:52 Source: patient and family () History of Present Illness: [id number] man with a past history of coronary artery disease (status post bypass 10 years ago) and COPD presents to the ER with sudden onset shortness of breath and chest pain that started around 1800 hrs. He describes chest pain as sharp and located in the center of the chest. There is no radiation. He rates it at 6 out of 10 right now. He denies fever, nausea or vomiting. Patient is diaphoretic and short of breath. He had an IL with stent placement in November 2020. Associated symptoms: Reports dyspnea Review of Systems Const: Denies: chills, body aches or change in appetite Eyes: Denies: change in vision or eye discharge ENMT: Denies: throat pain, dental pain or nasal discharge Card: Reports: chest pain Resp: Reports: dyspnea : Denies: dysuria Musc: Denies: neck pain or back pain Neuro: Denies: headache(s) or weakness in extremities Psych: Denies: depression Nura/Lymph: Denies: easy bruising All/Imm: Denies: urticaria, tongue swelling or facial swelling PFSH ED PFSH: Medical History Abnormal abdominal CT scan Acute non-ST segment elevation myocardial infarction (NSTEMI) following previous myocardial infarction Allergic rhinitis due to allergen Anemia, chronic renal failure Anemia, iron deficiency Atopic dermatitis and related condition Bilateral lower extremity edema CAD (coronary artery disease) remote CABG, NSTEMI, Stents 07/2021 Cellulitis of right lower leg CHF (congestive heart failure) Chronic nausea CKD stage 4 due to type 2 diabetes mellitus COPD (chronic obstructive pulmonary disease) Diabetes mellitus, type II Essential hypertension Hypercholesterolemia Inflammatory monoarthritis of right wrist Ischemic cardiomyopathy ORA on CPAP Sinus node dysfunction Surgical History History of appendectomy History of coronary artery stent placement Hx of CABG Family History Father Cancer Other Diabetes Social History Smoking and tobacco status: former smoker (06/2021) Quit status (tobacco): has quit using tobacco Year quit tobacco: June 2021 Former quit date comment: 1.5ppd x 57years Alcohol intake: current Alcohol intake frequency: holidays/special occasions only Alcohol type: beer Desire information about substance/drug rehabilitation?: No Caregiver/support person: No Lives independently: Yes Household members: spouse Marital status: Number of children: 2 service: No Current occupational status: retired and disabled History of recent travel: No Current gender identity: Male Physical Exam Const: COMMON NORMALS: patient oriented x3, no limitations and alert OTHER: Diaphoretic and in moderate respiratory distress. HENMT: COMMON NORMALS: normocephalic HEAD & SCALP: normocephalic Eye: COMMON NORMALS: EOMs intact bilaterally Neck/C-Spine: COMMON NORMALS: full ROM and supple Chest: COMMONS NORMALS: normal inspection of the chest Resp: EFFORT & INSPECTION: Yes tachypneic, Yes respiratory distress, Yes labored, Yes uses accessory muscles, Yes audible wheezes, Yes prolonged expiratory phase and Yes other (Coarse breath sounds.) AUSCULTATION: crackles and wheezes expiratory wheezes, inspiratory wheezes, left lower, right lower, anterior, posterior and throughout Cardio: COMMON NORMALS: regular rate and No murmurs present (Cardio) RATE: regular rate and tachycardic GI: COMMON NORMALS: Normal to inspection, nondistended, normoactive bowel sounds present and non-tender : COMMON NORMALS: Yes no CVA tenderness BLADDER/KIDNEY EXAM: Yes no CVA tenderness Back/Pelvis: COMMON NORMALS: no CVA tenderness and no thoracic nor lumbar tenderness Extremity: GENERAL: Yes normal exam except as noted Neuro: COMMON NORMALS: patient oriented x3 and no focal motor deficits SENSORIUM/ORIENTATION: Yes alert Psych: COMMON NORMALS: mental status grossly normal and cooperative Course Vital Signs: Vital signs: Vital Signs Temperature 97.4 F L 08/25/22 08:00 Pulse Rate 76 08/25/22 08:00 Respiratory Rate 22 H 08/25/22 08:00 Blood Pressure 152/87 08/25/22 08:00 Pulse Oximetry 98 08/25/22 08:00 Oxygen Delivery Me thod 08/25/22 07:41 Oxygen Flow Rate 5 08/25/22 00:27 Fraction of Inspir ed Oxygen 40 08/25/22 07:42 MDM - Chest Pain Medical Decision Making Medical Decision Making; Patient's presentation and clinical findings are most consistent with CHF exacerbation. He will be admitted for further management. Case discussed with Dr Danielle who accepted patient for admission. Lab Data 08/24/22 20:49 08/24/22 20:49 Radiology Impressions Chest X-Ray 08/24/22 20:52 IMPRESSION: Findings of congestive failure and interstitial edema. Laboratory Results WBC 15.8 10^3/uL (4.0-10.0) H 08/24/22 20:49 RBC 3.15 10^6/uL (4.1-5.3) L 08/24/22 20:49 Hgb 9.6 g/dL (11.7-16.6) L 08/24/22 20:49 Hct 33.6 % (42.0-52.0) L 08/24/22 20:49 MCV 106.7 fl (80-94) H 08/24/22 20:49 MCH 30.5 pg (28.0-34.0) 08/24/22 20:49 MCHC 28.6 g/dL (30.0-36.0) L 08/24/22 20:49 RDW 14.0 % (12.1-15.1) 08/24/22 20:49 Plt Count 328 10^3/cmm (130-400) 08/24/22 20:49 MPV 11.4 fL (7.4-10.4) H 08/24/22 20:49 Neut % (Auto) 85.6 % 08/24/22 20:49 Lymph % (Auto) 11.0 % 08/24/22 20:49 Centre % (Auto) 2.3 % 08/24/22 20:49 Eos % (Auto) 0.3 % 08/24/22 20:49 Baso % (Auto) 0.3 % 08/24/22 20:49 Neut # (Auto) 13.53 10^3/uL (1.8-7.7) H 08/24/22 20:49 Lymph # (Auto) 1.7 10^3/uL (0.8-4.8) 08/24/22 20:49 Centre # (Auto) 0.4 10^3/uL (0.2-0.9) 08/24/22 20:49 Eos # (Auto) 0.0 10^3/uL (0.0-0.8) 08/24/22 20:49 Baso # (Auto) 0.0 10^3/uL (0.0-0.1) 08/24/22 20:49 Nucleated RBC % (auto) 0 % 08/24/22 20:49 Nucleated RBCs # 0.0 /100WBC 08/24/22 20:49 Sodium 141 mmol/L (136-145) 08/24/22 20:49 Potassium 5.9 mmol/L (3.5-5.1) H 08/24/22 20:49 Chloride 104 mmol/L (98-107) 08/24/22 20:49 Carbon Dioxide 18 mmol/L (22-29) L 08/24/22 20:49 Anion Gap 24.9 (5-19) H 08/24/22 20:49 BUN 73 mg/dL (8-23) H 08/24/22 20:49 Creatinine 2.8 mg/dL (0.7-1.2) H 08/24/22 20:49 GFR Calculation 22.6 mL/min (90-130) L 08/24/22 20:49 Glucose 364 mg/dL (65-115) H 08/24/22 20:49 Estimat Average Glucose 137 08/24/22 20:49 Hemoglobin A1c 6.4 % (4.0-6.0) H 08/24/22 20:49 Calculated Osmolality 328 mOsm/kg (285-295) H 08/24/22 20:49 Calcium 9.0 mg/dL (8.5-10.5) 08/24/22 20:49 Total Bilirubin 0.4 mg/dL (0.15-1.2) 08/24/22 20:49 AST 18 U/L (0-40) 08/24/22 20:49 ALT 21 U/L (0-41) 08/24/22 20:49 Alkaline Phosphatase 82 U/L (40-130) 08/24/22 20:49 Troponin T Baseline 6 ng/L (0-15) 08/24/22 20:49 Troponin T 120 Minute 7.26 ng/L (0-15) 08/24/22 22:39 Delta Troponin T 1.26 ABS# (0-10) 08/24/22 22:39 NT-Pro-B Natriuret Pep 8857 pg/mL (0-125) H 08/24/22 20:49 Total Protein 7.1 g/dL (6.6-8.7) 08/24/22 20:49 Albumin 4.3 g/dL (3.5-5.2) 08/24/22 20:49 Globulin 2.8 g/dL (1.3-4.6) 08/24/22 20:49 EKG Data EKG 1: Interpretation: Normal sinus rhythm, rate of 96 intraventricular conduction delay, no STEMI. Discharge Plan Discharge Patient Disposition: Admitted As Inpatient Admit Provider: Dean Danielle Clinical Impression: CHF (congestive heart failure), COPD (chronic obstructive pulmonary disease) Condition: Stable Coding Level of Care Code ED Environmental Services Project Manager for Chg Fwd Exam Comprehensive
[2022-08-24 21:00] LABS: Basophils % 0.3 %; Eosinophils % 0.3 %; Hematocrit 33.6 % (42.0-52.0); Hemoglobin 9.6 g/dL (11.7-16.6); Lymphocytes # 1.7 10^3/uL (0.8-4.8); Mean Corpuscular HGB Conc 28.6 g/dL (30.0-36.0); Mean Corpuscular Hemoglobin 30.5 pg (28.0-34.0); Mean Corpuscular Volume 106.7 fl (80-94); Mean Platelet Volume 11.4 fL (7.4-10.4); Monocytes # 0.4 10^3/uL (0.2-0.9); Monocytes % 2.3 %; Neutrophils # 13.53 10^3/uL (1.8-7.7); Neutrophils % 85.6 %; Nucleated Red Blood Cells % 0 %; Platelet Count 328 10^3/cmm (130-400); Red Blood Count 3.15 10^6/uL (4.1-5.3); White Blood Count 15.8 10^3/uL (4.0-10.0)
[2022-08-24] MEDS: ipratropium-albuterol 3 mL Neb INHALATION (21:03)
[2022-08-24] MEDS: nitroglycerin 0.4 mg sublingual Tablet SUBLINGUAL ×2 (21:04→21:28)
[2022-08-24 21:29] LABS: Troponin(5th) Baseline 6 ng/L (0-15)
[2022-08-24 21:36] LABS: Alanine Aminotransferase 21 U/L (0-41); Albumin Level 4.3 g/dL (3.5-5.2); Alkaline Phosphatase 82 U/L (40-130); Blood Urea Nitrogen 73 mg/dL (8-23); Carbon Dioxide 18 mmol/L (22-29); Chloride 104 mmol/L (98-107); Globulin 2.8 g/dL (1.3-4.6); Glomerular Filtration Rate 22.6 mL/min (90-130); Glucose 364 mg/dL (65-115); NT Pro B Type Natriuretic Pept 8857 pg/mL (0-125); Osmolality Calculated 328 mOsm/kg (285-295); Sodium 141 mmol/L (136-145); Total Bilirubin 0.4 mg/dL (0.15-1.2); Total Protein 7.1 g/dL (6.6-8.7)
[2022-08-24 21:38] LABS: Anion Gap 24.9 (5-19)
[2022-08-24 21:39] LABS: Aspartate Amino Transferase 18 U/L (0-40); Potassium 5.9 mmol/L (3.5-5.1)
[2022-08-24] MEDS: lidocaine 2% viscous 15 ML, aluminum-mag hydrox-simethicon 30 ML, sucralfate oral liq 1 GM PO (22:56)
[2022-08-24] MEDS: pantoprazole DR 40 mg Tablet PO (23:00)
[2022-08-24 23:09] LABS: Troponin 5 2HR 7.26 ng/L (0-15)
[2022-08-24 23:20] LABS: Troponin 5 2HR Delta 1.26 ABS# (0-10)
[2022-08-24] MEDS: calcium gluconate 0.9% NaCL 1 GM/50 ML PREMIX IV (23:21)
[2022-08-24] MEDS: FUROsemide 10 mg/mL SDV 10mL 60 MG IVP (23:21)
[2022-08-25] VITALS (20 sets, daily range): BP systolic 132–166; BP diastolic 71–87; PULSE 73–107; RESP 15–28; TEMP 36.3–36.8; O2SAT 93–100
--- NOTE | 2022-08-25 | USCV_ITS ---
Luis Alfredo Thompson Age: 67 Gender: M : 1955 Exam Date: 08/25/2022 01:38 Ordering Phys: Dean Danielle MD Technologist: LARON [place] [facility] [place]: assess for DVT. No history of DVT per patient. HISTORY: assess for DVT. No history of DVT per patient. PROCEDURES: Venous duplex imaging was performed in bilateral lower extremities. The following venous structures were evaluated: common femoral vein, profunda vein, proximal portion of the greater saphenous vein, superficial femoral vein, and the popliteal vein. In addition, the posterior tibial veins were evaluated. Serial compression, augmentation maneuvers, and spectral Doppler flow evaluation were performed, which were normal. Bilaterally, the common femoral, superficial femoral, profunda femoral, popliteal, posterior tibial, and greater saphenous veins were identified and interrogated in the standard fashion. These veins were found to be easily compressible with spontaneous blood flow. No evidence of thrombus noted. Bilateral venous compartments demonstrate high pulsatility, consistent with CHF. CONCLUSIONS No evidence of right lower extremity DVT. No evidence of left lower extremity DVT. Dilan Sim MD (Electronically Signed) Final Date: 25 August 2022 12:54 S
--- NOTE | 2022-08-25 | USCV_ITS ---
Luis Alfredo Thompson Age: 67 Gender: M : 1955 Exam Date: 08/25/2022 02:06 Ordering Phys: Dean Danielle MD Technologist: LARON Exam Location: [facility] [place] Indication: sob, chest pain, history CAD, CABG 2014 COPD BP: 164 / 82 HR: 69 Rhythm: Sinus Technical Quality: Adequate MEASUREMENTS (Male / Female) Normal Values 2D ECHO LV Diastolic Diameter PLAX 4.9 cm 4.2 - 5.9 / 3.9 - 5.3 cm LV Systolic Diameter PLAX 4.2 cm IVS Diastolic Thickness 1.7 cm 0.6 - 1.0 / 0.6 - 0.9 cm IVS Systolic Thickness 2.2 cm LVPW Diastolic Thickness 1.3 cm 0.6 - 1.0 / 0.6 - 0.9 cm LVPW Systolic Thickness 1.4 cm LVOT Diameter 2.0 cm LV Ejection Fraction 2D Teich 27.4 % LV Ejection Fraction MOD 2C 26.6 % LV Ejection Fraction 2C AL 28.1 % LA Diameter 4.6 cm LA Width 5.4 cm LA Height 6.1 cm RA Width 3.9 cm RA Height 4.8 cm Aorta at Sinotubular Diameter 2.8 cm IVC Diameter 1.6 cm M-MODE Aortic Annulus Diameter 2.9 cm LA Ao Ratio MM 1.6 MV E Point Septal Separation 1.2 cm DOPPLER AV Peak Velocity 101.0 cm/s LVOT Peak Velocity 47.0 cm/s AV Area Cont Eq vti 1.6 cm squared AV Area Cont Eq pk 1.5 cm squared MV Area PHT 5.0 cm squared MV E' Velocity 50.5 cm/s Mitral E to MV E' Ratio 12.9 Mitral E to LV E' Lateral Ratio 8.7 Mitral E to LV E' Septal Ratio 25.9 TR Peak Velocity 317.0 cm/s TR Peak Gradient 40.2 mmHg TV Peak E Velocity 46.0 cm/s Right Atrial Pressure 5.0 mmHg Pulmonary Artery Systolic Pressu 45.2 mmHg PV Peak Velocity 94.0 cm/s RV Acceleration Time 0.0 s RV Ejection Time 0.3 s RV AcT/ET 0.1 FINDINGS Left Ventricle Left ventricle is normal in size. LV systolic function is severely reduced with EF of 25 to 30%. Severe global hypokinesis is seen. Right Ventricle Normal in size. RV is hypokinetic. Right Atrium Normal in size Left Atrium Dilated Mitral Valve Mitral valve is thickened. Moderate mitral regurgitation. Aortic Valve Aortic valve is thickened. No significant stenosis or regurgitation. Tricuspid Valve Mild tricuspid regurgitation. RVSP is 50 to 55 mmHg. This is consistent with moderate pulmonary hypertension. Pulmonic Valve Not well visualized. Mild pulmonic regurgitation. Pericardium Normal Aorta Normal in size IVC Appears to be normal CONCLUSIONS LV systolic function is severely reduced with EF of 25-30% RV is hypokinetic Left atrial dilation Moderate mitral regurgitation Mild tricuspid regurgitation Moderate pulmonary hypertension Mild pulmonic regurgitation Compared to prior echocardiogram from 11/2021, EF has decreased further and is 25-30% now Francis Israel MD (Electronically Signed) Final Date: 25 August 2022 13:36 S
--- NOTE | 2022-08-25 00:01 | P.HP_ITS ---
Providers/Chief Complaint Primary Care Provider: Donavan Clemons MD Chief Complaint: SOB, CP History of Present Illness Luis Alfredo Thompson is a 67 year old male with a past medical history of CAD, history of CABG, history of stenting in 2020, history of stenting, history of NSTEMI, history of CKD, history of noninsulin-dependent type 2 diabetes mellitus, CKD stage IV, COPD, history of anemia, history of ischemic cardiomyopathy, history of ORA on CPAP, hyperlipidemia who presents [facility] for shortness of breath, lower extremity edema, orthopnea. Patient does not that he has felt increasingly short of breath, he uses 2 L, chronically, he also has developed lower extremity edema, does have right calf pain, no palpitations, no cough, no fevers, no chills. He does tell me that his symptoms did start this evening however his shortness of breath has been more progressive over the last few days. He also complains chest discomfort, no radiating, no diaphoresis, no lightheadedness, no dizziness, associated shortness of breath Review of Systems Const: Denies: fever(s) or chills Eyes: Denies: change in vision Card: Reports: chest pain, edema, swelling of feet/ankles and dyspnea on exertion Resp: Reports: dyspnea and non-productive cough GI: Denies: abdominal pain, nausea or vomiting : Denies: flank pain, difficulty urinating or dysuria Musc: Denies: muscle weakness Skin/Breast: Denies: rash Neuro: Denies: headache(s) Endo: Denies: polyuria or polydipsia Medications/Allergies Home Medications Medication Instructions Recorded Confirmed Last Taken Type simethicone 250 mg capsule (Gas 250 mg PO QID PRN Abdominal 04/18/21 08/24/22 07/30/21 15:30 History Relief (simethicone)) Discomfort ascorbic acid (vitamin C) 500 mg 500 mg PO QA health #100 tabs 08/22/21 08/24/22 Unknown Rx tablet (Vitamin C) aspirin 81 mg tablet,delayed 81 mg PO QAM 90 days #90 tabs 08/22/21 08/24/22 Unknown Rx release ferrous sulfate 325 mg (65 mg 325 mg PO BIDWM iron deficiency 08/22/21 08/24/22 Unknown Rx iron) tablet,delayed release #100 tabs loratadine 10 mg tablet (Claritin) 10 mg PO DAILY PRN Allergies #90 08/22/21 08/24/22 Unknown Rx tabs vitamin E 268 mg (400 unit) capsule 400 unit PO [facility] health #90 caps 08/22/21 08/24/22 Unknown Rx sacubitril 24 mg-valsartan 26 mg 1 tab PO BID #60 tabs 10/13/21 08/24/22 Unknown Rx tablet (Entresto) budesonide-formoterol HFA 80 2 inh inhalation BID lungs & 02/24/22 08/24/22 Unknown Rx mcg-4.5 mcg/actuation aerosol breathing 30 days #10.2 grams inhaler (Symbicort) bumetanide 1 mg tablet 2 mg PO DAILY Heart failure 30 02/24/22 08/24/22 Unknown Rx days #60 tabs glimepiride 2 mg tablet 2 mg PO BID glucose control #60 02/24/22 08/24/22 Unknown Rx tabs isosorbide mononitrate 30 mg 30 mg PO BID chest pain 90 days 02/24/22 08/24/22 Unknown Rx tablet,extended release 24 hr #180 tabs metolazone 5 mg tablet See Rx Instructions .Route 03/03/22 08/24/22 Unknown Rx .COMPLEX #60 tabs One touch test strips #1 ea 04/02/22 08/24/22 Unknown Rx prazosin 1 mg capsule See Rx Instructions .Route 04/05/22 08/24/22 Unknown Rx .COMPLEX #60 caps nitroglycerin 0.4 mg sublingual 0.4 mg sublingual Q5M PRN chest 05/01/22 08/24/22 Unknown Rx tablet (Nitrostat) pain #25 tabs pantoprazole 40 mg tablet,delayed 40 mg PO DAILY@12 acid reflux or 06/01/22 08/24/22 Unknown Rx release heart burn #30 tabs hydralazine 50 mg tablet 50 mg PO TID blood Pressure #270 06/11/22 08/24/22 Unknown Rx tabs triamcinolone acetonide 0.025 % 1 applic topical DAILY #454 grams 06/11/22 08/24/22 Unknown Rx topical cream metoprolol tartrate 50 mg tablet 50 mg PO BID blood pressure 30 06/18/22 08/24/22 Unknown Rx days #60 tabs atorvastatin 40 mg tablet See Rx Instructions .Route 07/07/22 08/24/22 Unknown Rx .COMPLEX #60 tabs ondansetron 4 mg disintegrating 4 mg PO Q6H PRN nausea and 07/07/22 08/24/22 Unknown Rx tablet vomiting #30 tabs metformin 1,000 mg tablet 1,000 mg PO BID 08/14/22 08/24/22 Unknown History prednisone 20 mg tablet 40 mg PO DAILY 5 days #10 tabs 08/24/22 08/24/22 Unknown Rx tramadol 50 mg tablet 50 mg PO Q8H PRN pain #10 tabs 08/24/22 08/24/22 Unknown Rx Allergies Allergy/AdvReac Type Severity Reaction Status Date / Time Influenza Virus Vaccines Allergy Severe ADR-Hyperte Verified 08/24/22 11:02 nsion Penicillins Allergy ALGY-Anaphy Verified 08/24/22 11:02 laxis cillins Allergy ALGY-Anaphy Uncoded 08/24/22 11:02 laxis PFSH Acute PFSH: Medical History Abnormal abdominal CT scan Acute non-ST segment elevation myocardial infarction (NSTEMI) following previous myocardial infarction Allergic rhinitis due to allergen Anemia, chronic renal failure Anemia, iron deficiency Atopic dermatitis and related condition Bilateral lower extremity edema CAD (coronary artery disease) remote CABG, NSTEMI, Stents 07/2021 Cellulitis of right lower leg CHF (congestive heart failure) Chronic nausea CKD stage 4 due to type 2 diabetes mellitus COPD (chronic obstructive pulmonary disease) Diabetes mellitus, type II Essential hypertension Hypercholesterolemia Inflammatory monoarthritis of right wrist Ischemic cardiomyopathy ORA on CPAP Sinus node dysfunction Surgical History History of appendectomy History of coronary artery stent placement Hx of CABG Family History Father Cancer Other Diabetes Social History Smoking and tobacco status: former smoker (06/2021) Quit status (tobacco): has quit using tobacco Year quit tobacco: June 2021 Former quit date comment: 1.5ppd x 57years Alcohol intake: current Alcohol intake frequency: holidays/special occasions only Alcohol type: beer Desire information about substance/drug rehabilitation?: No Caregiver/support person: No Lives independently: Yes Household members: spouse Marital status: Number of children: 2 service: No Current occupational status: retired and disabled History of recent travel: No Current gender identity: Male Vitals/I&O/Wt Last Vital Signs Pulse 81 08/24/22 21:28 Resp 28 H 08/24/22 21:28 BP 170/67 08/24/22 21:28 Pulse Ox 98 08/24/22 21:28 O2 Del Method 08/24/22 21:28 O2 Flow Rate 4 08/24/22 21:28 Weight last 48 hrs Weight 71.214 kg Physical Exam Const: COMMON NORMALS: no acute distress and patient oriented x3 HENMT: COMMON NORMALS: normocephalic HEAD & SCALP: normocephalic Eye: COMMON NORMALS: Equal, round and reactive pupils present and EOMs intact bilaterally Neck/C-Spine: COMMON NORMALS: full ROM, no lymphadenopathy and no JVD Chest: COMMONS NORMALS: normal inspection of the chest Resp: COMMON NORMALS: normal respiratory effort, No retractions, No use of accessory muscles and clear to auscultation bilaterally AUSCULTATION: crackles and wheezes Cardio: COMMON NORMALS: no JVD, regular rate, regular rhythm, S1 normal heart sound present and S2 normal heart sound present RATE: regular rate RHYTHM: regular rhythm HEART SOUNDS: S1 normal heart sound present and S2 normal heart sound present GI: COMMON NORMALS: Normal to inspection, nondistended, normoactive bowel sounds present, Soft to palpation and non-tender Extremity: NARRATIVE EXTREMITY EXAM: 2+ pitting edema, right lower extremity more so on the left Neuro: COMMON NORMALS: patient oriented x3, CN's II-XII intact bilaterally, moves all extremities and no focal motor deficits Psych: COMMON NORMALS: mental status grossly normal Data 08/24/22 20:49 08/24/22 20:49 A&P Assessment and plan (1) Bilateral lower extremity edema: (2) ORA on CPAP: (3) Anemia, chronic renal failure: (4) CKD stage 4 due to type 2 diabetes mellitus: (5) COPD (chronic obstructive pulmonary disease): (6) Essential hypertension: (7) Diabetes mellitus, type II: Qualifiers: Diabetes mellitus complication status: with hyperglycemia Diabetes mellitus mcc insulin use: without mcc use Qualified Code(s): E11.65 - Type 2 diabetes mellitus with hyperglycemia (8) CAD (coronary artery disease): (9) CHF (congestive heart failure): (10) Acute on chronic respiratory failure with hypoxia: (11) COPD exacerbation: (12) CHF exacerbation: (13) Hyperkalemia: (14) Anemia: Plan Acute hypoxic respiratory failure -Secondary to COPD exacerbation -Secondary to CHF exacerbation -Admit to general medical floors -Plan -Monitor respiratory status closely, telemetry monitoring -Ipratropium, budesonide -Continue Solu-Medrol -Bumex 1 mg every 12 hours -Monitor creatinine, monitor potassium, monitor magnesium -Cardiac echo -Full code -Lovenox for DVT prophylaxis COPD exacerbations above Systolic CHF exacerbation, cardiac echo, serial EKGs, serial troponins, telemetry monitoring Chronic anemia, likely secondary CKD monitor CKD stage IV, continue to monitor as patient is on Lasix Hyper kalemia, has received insulin, D50, monitor Type 2 diabetes mellitus, low-dose sliding scale Hypertension, continue Imdur, Dralzine, metoprolol Right more than left lower extremity swelling, venous ultrasound Goals of care discussion, patient wants to be a full code Attestations Medical Necessity Statement*: Patient requires hospitalization and inpatient, greater than 2 midnights for acute hypoxic respiratory failure secondary to COPD exacerbation, CHF exacerbation, hyperkalemia Coding Level of Care Code Acute Code for Chg Fwd Exam Comprehensive Diagnoses Bilateral lower extremity edema R60.0 ORA on CPAP G47.33; Z99.89 Anemia, chronic renal failure N18.9; D63.1 CKD stage 4 due to type 2 diabetes mellitus E11.22; N18.4 COPD (chronic obstructive pulmonary disease) J44.9 Essential hypertension I10 Diabetes mellitus, type II E11.65 Diabetes mellitus complication status: with hyperglycemia Diabetes mellitus mcc insulin use: without mcc use CAD (coronary artery disease) I25.10 CHF (congestive heart failure) I50.9 Acute on chronic respiratory failure with hypoxia J96.21 COPD exacerbation J44.1 CHF exacerbation I50.9 Hyperkalemia E87.5 Anemia D64.9
[2022-08-25] MEDS: insulin regular-human 100 units/1 mL 10 UNIT IVP (00:05)
[2022-08-25] MEDS: enoxaparin 40 mg/0.4 mL Syringe SUBCUT (01:24)
[2022-08-25] MEDS: metoprolol tartrate 50 mg Tablet PO ×3 (01:24→23:49)
[2022-08-25] MEDS: hyDRALAzine 50 mg Tablet PO ×4 (01:24→23:49)
[2022-08-25] MEDS: isosorbide mononitrate ER 30 mg Tablet PO ×3 (01:24→23:48)
--- NOTE | 2022-08-25 01:26 | PC.NURSE ---
Rash noted in the patients groin region. Patient states rash is chronic and comes and goes. Scab also noted on patients middle toe on the right foot.
[2022-08-25 01:53] LABS: Influenza A by IFA negative (Negative); Influenza B by IFA negative (Negative)
--- NOTE | 2022-08-25 01:54 | PC.NURSE ---
Patient and family keep requesting regular soda vs diet soda and educated the and patient that we do not want his sugar to rise out of control. The patient and family still request regular soda.
[2022-08-25 01:56] LABS: Troponin 5 6HR 17.55 ng/L (0-15)
[2022-08-25 02:21] LABS: Estmated Average Glucose 137; Hemoglobin A1C 6.4 % (4.0-6.0)
[2022-08-25 02:24] LABS: Troponin 5 6HR Delta 11.55 ng/L (0-12)
[2022-08-25] MEDS: morphine 4 mg/mL SDV 1 mL 1 MG IVP (02:24)
[2022-08-25 03:05] LABS: Blood Urea Nitrogen 80 mg/dL (8-23); C Reactive Protein 32.9 mg/L (0.0-4.9); Calcium 8.8 mg/dL (8.5-10.5); Carbon Dioxide 13 mmol/L (22-29); Chloride 102 mmol/L (98-107); Chol HDL Ratio 3.28 mg/dL (1.0-5.00); Cholesterol 131 mg/dL (0-200); Glomerular Filtration Rate 21.7 mL/min (90-130); Glucose 458 mg/dL (65-115); HDL Cholesterol 40 mg/dL (60-100); LDL Cholesterol Calculated 73 mg/dL (50-129); LDL HDL Ratio 1.83 RATIO (0.00-3.22); NT Pro B Type Natriuretic Pept 11389 pg/mL (0-125); Osmolality Calculated 334 mOsm/kg (285-295); Procalcitonin 0.04 ng/mL (0-0.5); Sodium 140 mmol/L (136-145); Thyroid Stimulating Hormone 0.59 uIU/mL (0.27-4.20); Triglycerides 92 mg/dL (0-150)
[2022-08-25 03:11] LABS: Anion Gap 30.8 (5-19); Potassium 5.8 mmol/L (3.5-5.1)
[2022-08-25 03:18] LABS: Lactic Sepsis W/Reflex 6.2 mmol/L (0.5-2.2)
[2022-08-25 03:19] LABS: Adenovirus Not Detected (NOT DETECT); Chlamydia Pneumoniae Not Detected (NOT DETECT); Coronavirus 229E,HKU1,NL63,OC4 Not Detected (NOT DETECT); Human Metapneumovirus Not Detected (NOT DETECT); Human Rhinovirus/Enterovirus Not Detected (NOT DETECT); Influenza A Not Detected (NOT DETECT); Influenza A H1 Not Detected (NOT DETECT); Influenza A H1-2009 Not Detected (NOT DETECT); Influenza A H3 Not Detected (NOT DETECT); Influenza B Not Detected (NOT DETECT); Mycoplasma Pneumoniae Not Detected (NOT DETECT); Parainfluenza Virus Type 1 Not Detected (NOT DETECT); Parainfluenza Virus Type 2 Not Detected (NOT DETECT); Parainfluenza Virus Type 3 Not Detected (NOT DETECT); Parainfluenza Virus Type 4 Not Detected (NOT DETECT); Respiratory Syncytial Virus A Not Detected (NOT DETECT); Respiratory Syncytial Virus B Not Detected (NOT DETECT); SARS-COV-2 Not Detected (NOT DETECT)
[2022-08-25 03:19] LABS: Reflex Lactate Order REFLEX LACTIC ORDERD
[2022-08-25] MEDS: sodium polystyrene sulfonate 15 gm/60 mL Btl PO ×2 (03:29→16:18)
--- NOTE | 2022-08-25 04:28 | ECG_ITS ---
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 Measurements Intervals Sundown Rate: 79 P: 71 NM: 238 QRS: -85 QRSD: 158 T: 63 QT: 438 QTc: 503 Interpretive Statements SINUS RHYTHM WITH FIRST DEGREE AV BLOCK RIGHT BUNDLE BRANCH BLOCK [120+ ms QRS DURATION, UPRIGHT V1, 40+ ms S IN I/aVL/V4/V5/V6] POSSIBLE ANTERIOR MYOCARDIAL INFARCTION , PROBABLY OLD [30 ms Q WAVE IN V3/V4, OR R < 0.2 mV IN V4] INFERIOR MYOCARDIAL INFARCTION , OF INDETERMINATE AGE [40+ ms Q WAVE AND/OR ST/T ABNORMALITY IN II/aVF] ST DEPRESSION, CONSIDER SUBENDOCARDIAL INJURY [0.1+ mV ST DEPRESSION] Compared to ECG 08/24/2022 20:37:34 First degree AV block now present Right bundle-branch block now present Myocardial infarct finding now present ST (T wave) deviation now present Intraventricular conduction delay no longer present Electronically Signed On 08-25-2022 14:46:53 LACE SEWER by Francis Israel M.D. [email or web address]
[2022-08-25 04:59] LABS: Basophils % 0.1 %; Hematocrit 33.9 % (42.0-52.0); Hemoglobin 9.8 g/dL (11.7-16.6); Lymphocytes # 0.7 10^3/uL (0.8-4.8); Lymphocytes % 4.4 %; Mean Corpuscular HGB Conc 28.9 g/dL (30.0-36.0); Mean Corpuscular Hemoglobin 30.7 pg (28.0-34.0); Mean Corpuscular Volume 106.3 fl (80-94); Monocytes # 0.4 10^3/uL (0.2-0.9); Monocytes % 2.8 %; Neutrophils # 13.94 10^3/uL (1.8-7.7); Neutrophils % 92.2 %; Nucleated Red Blood Cells % 0 %; Platelet Count 342 10^3/cmm (130-400); Red Blood Count 3.19 10^6/uL (4.1-5.3); White Blood Count 15.1 10^3/uL (4.0-10.0)
[2022-08-25 05:34] LABS: Lactic Acid level (Lactate) 5.3 mmol/L (0.5-2.2)
[2022-08-25 05:44] LABS: Ketone (Acetest) Serum Negative (Negative)
[2022-08-25] MEDS: aspirin 81 mg EC Tablet PO (06:08)
[2022-08-25] MEDS: bumetanide 0.25 mg/mL SDV 4 mL 1 MG IVP ×3 (06:08→21:18)
[2022-08-25] MEDS: ascorbic acid 500 mg Tablet PO (06:08)
[2022-08-25 06:15] LABS: Glucose Point of Care 463 mg/dL (70-110)
[2022-08-25] MEDS: insulin glargine 100 units/1 mL 10 UNIT SUBCUT (06:42)
[2022-08-25 07:46] LABS: Lactate (Lactic Acid level) 3.7 mmol/L (0.5-2.2)
[2022-08-25] MEDS: ferrous sulfate EC 325 mg Tablet PO ×2 (08:18→17:40)
[2022-08-25] MEDS: prazosin 1 mg Capsule PO ×2 (08:18→17:40)
[2022-08-25] MEDS: insulin lispro 100 unit/1 mL SUBCUT ×3 (08:19→17:39)
[2022-08-25] MEDS: ipratropium-albuterol 3 mL Neb INHALATION ×4 (09:19→20:55)
--- NOTE | 2022-08-25 11:58 | PC.CHAP ---
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 visit [] Patient/Family/Request visit [] Outpatient visit [] Follow-up visit [] Physician referral [] Code/Alert [x] Routine visit [] Staff referral [] Actively dying [] Patient sleeping [x] Family support [] [] Out of room [] Palliative care [] [] Receiving care in room [] Pre-surgical visit [] Trauma [] Long length of stay [] ICU visit [] Other: Relational/Emotional Strength [x] Patient feels connected with others/family/visitors/staff [] Distress [] Loneliness/isolation [] Abandonment Spirituality of Patient []x Person of Ileana [] Attends Yarsani of their Ileana [x] Believes in Prayer [] Reads Bible or Yazidism materials [] There are Spiritual issues to be addressed Farmworkers Interventions [x] Prayer [x] Active listening [x] Non-anxious presence [] Spiritual/emotional support [] Crisis/trauma care [] Spiritual counseling [] Bereavement support [] Provided bereavement packet [] Provided Bible/devotional materials [] Provided toy/stuffed animal, coloring book to patient or family member [] Provided Communion [] Anointing/[place] [] Salvation [x] Completed spiritual assessment [] Other: Impact on Illness or Injury [] Angry [] Fearful [] Anxious [] Often cries [] Exhaustion [] Unable to work [] Unable to attend bahai [] Unable to walk/stand [] Unable to read [] Unable to drive [] Unable to eat/drink [] Unable to sleep [] Unable to be with family [] Patient intubated [] Other: Summary Time spent with patient 10 min
[2022-08-25] MEDS: pantoprazole DR 40 mg Tablet PO (12:13)
--- NOTE | 2022-08-25 12:38 | CT_ITS ---
WS: [id number] CT ABDOMEN AND PELVIS NONCONTRAST HISTORY: vomiting, lactic acidosis TECHNIQUE: Imaging performed through the abdomen and pelvis. Coronal and sagittal reformats are submi tted. All CT scans at [facility] use at least one of these dose optimization techniques: auto mated exposure control; mA and/or kV adjustment per patient size (includes targeted exams where dose is matched to clinical indication); or iterative reconstruction. DLP: 580.34 mGy.cm COMPARISON: 11/06/2021 Lower thorax: Mild pulmonary congestion noted at the lung bases with small bilateral pleural effusion s. Heart is mildly enlarged. No pericardial effusion. Liver: Normal size liver. No mass or bile duct dilatation. Gallbladder: Mild gallbladder wall edema is diffuse. May be related to hepatocellular disease. No hyd rops. Bile duct does not appear dilated. Pancreas: Normal size and attenuation. Normal pancreatic duct. No pancreatitis or mass. Spleen: Normal. Adrenal glands: None bilateral adrenal myelolipomas. Right kidney: Normal size kidney with mild perinephric stranding. Stable exophytic low-attenuation ma ss from the lower pole. Left kidney: Normal size kidney with mild perinephric stranding. Bilateral exophytic low-attenuation masses. Aorta: Moderate to severe atherosclerosis abdominal aorta. No aneurysm. Atherosclerosis continues int o the common iliac arteries. Heavy calcification at the origin of celiac axis and SMA. Component of s tenosis likely which could cause mesenteric ischemia. No free fluid, intraperitoneal air or significant lymphadenopathy. GI tract: Minimally distended stomach. High density material in the stomach is probably medicinal tab lets. There is a focal ulceration in the duodenum extending to the mucosa very suspicious for duodena l ulcer. Ulcer contains air and edema. There is adjacent mild periduodenal edema. No small bowel obst ruction. Extensive diverticulosis throughout the colon with no evidence for acute diverticulitis. No evidence for ischemia by CT. Prior appendectomy. Abdominal wall: Foci of air in the subcutaneous soft tissue along the midline of the abdominal wall f or injection sites. Pelvis: Feng catheter in a nondistended urinary bladder. No free fluid or adenopathy in the pelvis. Osseous structures: Increase in lumbar lordosis. CT/CT abdomen pelvis wo con [id number] IMPRESSION: 1. No free air or ascites. 2. Duodenal ulceration. Soft tissue ulceration involving duodenal mucosa. Circ umferential duodenal edema. 3. Minimal contracted gallbladder with a small amount of wall thickening and e yvonne. Consider RIGHT upper quadrant ultrasound to evaluate for acute cholecysti tis. Edema may be on the basis of hepatocellular disease or duodenal inflammati on. 4. Stable bilateral adrenal myelolipomas. 5. Additional extensive calcification involving the origin of the SMA and tammie ac axis. 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 Placing the kesha ent at increased risk for mesenteric ischemia.
--- NOTE | 2022-08-25 15:13 | PC.OT ---
PER P.T. EVALUATION AND DISCUSSION WITH P.T.; PATIENT INDEPENDENT WITH MOBILITY AND ADLS; NO OT NEEDED AT THIS TIME.
[2022-08-25 16:41] LABS: Glucose Point of Care 426 mg/dL (70-110)
[2022-08-25] MEDS: ondansetron 2 mg/ML SDV 2 mL 4 MG IVP (17:27)
[2022-08-25 17:38] LABS: Glucose Point of Care 312 mg/dL (70-110)
[2022-08-25 18:53] LABS: Blood Urine 3+ (Negative); Glucose Urine UA Norm (Normal); Ketones Urine 1+ (Negative); Protein Urine 3+ (Negative); Specific Gravity, Urine 1.025 (1.005-1.030); Urine Appearance Cloudy (CLEAR); Urine Color Yellow (Yellow); pH Urine 5 (5-7)
[2022-08-25 18:54] LABS: Add Urine Culture? No; Add Urine Microscopic? YES; Amorphous Sediment Urine 3+ /hpf; Bacteria Urine 1+ /hpf; Bilirubin Urine Neg (Negative); Leukocyte Esterase Urine 2+ (Negative); Nitrate Urine Negative (Negative); RBC Urine TOO NUMEROUS TO CNT /hpf (0-2); Urobilinogen Urine 1 mg/dL (Negative)
[2022-08-25] MEDS: atorvastatin 40 mg Tablet PO (20:18)
--- NOTE | 2022-08-25 20:28 | P.PN_ITS ---
Subjective Subjective: He is feeling slightly better. He had an episode of vomiting last night. Denies abdominal pain. Vomiting happened after he ate dinner which he states he enjoyed. Denies any NSAID use at home. His states that he has been getting quite bloated. At home normally on 2-3 L nasal cannula. Vitals/I&O/Wt Last Vital Signs Temp 98.3 F 08/25/22 20:00 Pulse 84 08/25/22 20:00 Resp 17 08/25/22 20:00 BP 166/71 08/25/22 20:00 Pulse Ox 99 08/25/22 20:00 O2 Del Method 08/25/22 20:00 O2 Flow Rate 3 08/25/22 20:00 FiO2 30 08/25/22 11:14 08/25/22 08/25/22 08/25/22 06:59 14:59 22:59 Intake Total 360 / 360 Output Total 400 / 400 Balance 360 / 360 -400 / -40 Weight last 48 hrs Weight 71.214 kg Physical Exam Narrative: at bedside Const: COMMON NORMALS: patient oriented x3 and alert GENERAL APPEARANCE: cooperative ORIENTATION/CONSCIOUSNESS: Yes awake HENMT: COMMON NORMALS: oropharynx normal Neck/C-Spine: COMMON NORMALS: no JVD Resp: COMMON NORMALS: normal respiratory effort AUSCULTATION: rales (Basis) Cardio: COMMON NORMALS: no JVD, regular rhythm, S1 normal heart sound present, S2 normal heart sound present and No murmurs present (Cardio) RHYTHM: regular rhythm HEART SOUNDS: S1 normal heart sound present and S2 normal heart sound present GI: COMMON NORMALS: Normal to inspection, nondistended, normoactive bowel sounds present, Soft to palpation and non-tender PALPATION: Yes Soft to palpation Extremity: COMMON NORMALS: no joint enlargement GENERAL: Yes edema (2+) Neuro: COMMON NORMALS: patient oriented x3 and moves all extremities SENSORIUM/ORIENTATION: Yes alert Skin: COMMON NORMALS: no rashes or lesions noted GENERAL SKIN EXAM: no rashes or lesions noted Urinary Catheter Management: Feng: Cath Placed During This Visit: no Reason for Continuing Indwelling Catheter: Other Data 08/25/22 04:43 08/25/22 01:25 A&P Assessment and plan (1) Acute on chronic respiratory failure with hypoxia: Increase Bumex dose to 2 mg. Continue every 12 hours. Continue Solu-Medrol, breathing treatments. Added scheduled duo nebs. For now no antibiotic. He states whenever phlegm he has has been clear. Add sputum culture. (2) CHF (congestive heart failure): Acute CHF exacerbation as above (3) Bilateral lower extremity edema: (4) ORA on CPAP: (5) Anemia, chronic renal failure: (6) CKD stage 4 due to type 2 diabetes mellitus: (7) COPD (chronic obstructive pulmonary disease): (8) Essential hypertension: (9) Diabetes mellitus, type II: Qualifiers: Diabetes mellitus intermediate frame tender insulin use: without intermediate frame tender use Diabetes mellitus complication status: with hyperglycemia Qualified Code(s): E11.65 - Type 2 diabetes mellitus with hyperglycemia (10) CAD (coronary artery disease): (11) COPD exacerbation: As above (12) CHF exacerbation: (13) Hyperkalemia: Next dose is increased. Change to low potassium diet. Hold Entresto. (14) Anemia: Plan Lactic acidosis: Has been showing improvement. Suspected secondary to hypoperfusion with CHF, hypoxic respiratory failure. Not suspected to be septic shock. Did have episode of vomiting last night. His points out he is a chronic kidney disease patient, he is concerned about anything that could injure his kidneys. For now requested only plain CT of the abdomen pelvis. Abdomen is nontender. On CT no free air noted. Duodenal ulceration, soft tissue infection involving duodenal mucosa, circumferential duodenal edema. Suspect this may have been responsible for his vomiting episode yesterday. Continue PPI. Minimal contracted gallbladder with small amount of wall thickening and edema. Will get ultrasound. Additionally found to have extensive calcification involving origin of SMA and celiac axis. 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 Placing him at risk of mesenteric ischemia. Reassess abdomen. Continue to monitor for any change in symptoms. Stable bilateral adrenal myolipoma's. Chronic anemia, likely secondary CKD monitor CKD stage IV, continue to monitor as patient is on Lasix Hyper kalemia, has received insulin, D50, monitor Type 2 diabetes mellitus, low-dose sliding scale Hypertension, continue Imdur, Dralzine, metoprolol Right more than left lower extremity swelling, venous ultrasound Goals of care discussion, patient wants to be a full code Attestations Medical Necessity Statement*: Continue admission for assessment of management of acute CHF exacerbation, COPD exacerbation with hypoxic respiratory failure, further reassessment after vomiting, lactic acidosis and gentleman with suspected mesenteric stenosis. Coding Level of Care Code Acute Code for Chg Fwd Diagnoses Acute on chronic respiratory failure with hypoxia J96.21 CHF (congestive heart failure) I50.9 Bilateral lower extremity edema R60.0 ORA on CPAP G47.33; Z99.89 Anemia, chronic renal failure N18.9; D63.1 CKD stage 4 due to type 2 diabetes mellitus E11.22; N18.4 COPD (chronic obstructive pulmonary disease) J44.9 Essential hypertension I10 Diabetes mellitus, type II E11.65 Diabetes mellitus intermediate frame tender insulin use: without snf use Diabetes mellitus complication status: with hyperglycemia CAD (coronary artery disease) I25.10 COPD exacerbation J44.1 CHF exacerbation I50.9 Hyperkalemia E87.5 Anemia D64.9
--- NOTE | 2022-08-25 20:38 | PC.NURSE ---
Patient is on 3L nasal cannula.
--- NOTE | 2022-08-25 20:39 | US_ITS ---
WS: [id number] RIGHT UPPER QUADRANT ULTRASOUND HISTORY: Gallbladder noted on a prior CT COMPARISON: CT 08/25/2022. Liver: 16.5 cm in length. Normal size liver. There is mild coarsened echotexture throughout the liver . No mass identified. Portal Vein: Normal hepatopetal flow with monophasic waveform. Gallbladder: Very mild contraction of the gallbladder. Continued gallbladder wall thickening with gabrielle ma and a small amount of adjacent fluid. No stones are identified. CBD: 0.5 cm Pancreas: Normal size and echogenicity. Right kidney: 10.9 cm in length. Normal size kidney. No hydronephrosis. Small cortical cysts with the largest measuring 2.1 cm. Aorta and IVC: Mildly dilated IVC. Aorta is negative. There is a small amount of ascites. There is also small RIGHT pleural effusion. US/US gall bladder [id number] IMPRESSION: 1. Mildly contracted gallbladder with wall thickening and edema. No stones are identified. Consider acalculous cholecystitis. These findings also may be asso ciated with hepatocellular disease and ascites. 2. Small amount of ascites and small RIGHT pleural effusion. 3. Mild coarsened echotexture throughout the liver is probably due to cirrhosi s or hepatic steatosis. 4. No bile duct dilatation.
[2022-08-25] MEDS: enoxaparin 30 mg/0.3 mL Syringe SUBCUT (23:48)
[2022-08-25 23:56] LABS: Glucose Point of Care 246 mg/dL (70-110)
[2022-08-26] VITALS (16 sets, daily range): BP systolic 130–153; BP diastolic 61–74; PULSE 56–91; RESP 13–18; TEMP 36.3–36.8; O2SAT 94–100
[2022-08-26] MEDS: sodium polystyrene sulfonate 15 gm/60 mL Btl PO ×2 (03:47→15:50)
[2022-08-26 06:08] LABS: Basophils % 0.1 %; Hematocrit 31.7 % (42.0-52.0); Hemoglobin 9.3 g/dL (11.7-16.6); Lymphocytes # 0.4 10^3/uL (0.8-4.8); Lymphocytes % 2.5 %; Mean Corpuscular HGB Conc 29.3 g/dL (30.0-36.0); Mean Corpuscular Hemoglobin 30.2 pg (28.0-34.0); Mean Corpuscular Volume 102.9 fl (80-94); Mean Platelet Volume 10.9 fL (7.4-10.4); Monocytes # 0.7 10^3/uL (0.2-0.9); Monocytes % 4.5 %; Neutrophils # 14.75 10^3/uL (1.8-7.7); Neutrophils % 92.5 %; Nucleated Red Blood Cells % 0 %; Platelet Count 252 10^3/cmm (130-400); Red Blood Count 3.08 10^6/uL (4.1-5.3); Red Cell Distribution Width 13.9 % (12.1-15.1); White Blood Count 15.9 10^3/uL (4.0-10.0)
[2022-08-26 06:30] LABS: Anion Gap 23.9 (5-19); Calcium 8.5 mg/dL (8.5-10.5); Carbon Dioxide 20 mmol/L (22-29); Chloride 102 mmol/L (98-107); Glomerular Filtration Rate 18.1 mL/min (90-130); Glucose 214 mg/dL (65-115); Osmolality Calculated 328 mOsm/kg (285-295); Potassium 4.9 mmol/L (3.5-5.1); Sodium 141 mmol/L (136-145)
[2022-08-26] MEDS: ascorbic acid 500 mg Tablet PO (06:34)
[2022-08-26] MEDS: aspirin 81 mg EC Tablet PO (06:34)
[2022-08-26] MEDS: bumetanide 0.25 mg/mL SDV 4 mL 2 MG IVP (06:35)
[2022-08-26 06:37] LABS: Glucose Point of Care 219 mg/dL (70-110)
[2022-08-26 06:39] LABS: Blood Urea Nitrogen 96 mg/dL (8-23)
[2022-08-26] MEDS: insulin glargine 100 units/1 mL 10 UNIT SUBCUT (07:10)
[2022-08-26] MEDS: ipratropium-albuterol 3 mL Neb INHALATION ×4 (07:59→21:06)
--- NOTE | 2022-08-26 07:59 | ECG_ITS ---
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 Measurements Intervals [place] Rate: 73 P: 76 ND: 152 QRS: -13 QRSD: 114 T: 228 QT: 459 QTc: 507 Interpretive Statements SINUS RHYTHM WITH FREQUENT VENTRICULAR PREMATURE COMPLEXES IN A BIGEMINAL PATTERN MODERATE INTRAVENTRICULAR CONDUCTION DELAY [110+ ms QRS DURATION] ST DEVIATION AND MODERATE T-WAVE ABNORMALITY, CONSIDER ANTEROLATERAL ISCHEMIA ] ST DEVIATION AND MODERATE T-WAVE ABNORMALITY, CONSIDER INFERIOR ISCHEMIA Compared to ECG 08/25/2022 04:28:49 Ventricular premature complex(es) now present Intraventricular conduction delay now present T-wave abnormality now present Possible ischemia now present First degree AV block no longer present Right bundle-branch block no longer present Myocardial infarct finding no longer present ST (T wave) deviation no longer present Electronically Signed On 08-27-2022 10:07:13 GRINDER OPERATOR SURFACE TOOL by Saba Sims M.D. [id number]
--- NOTE | 2022-08-26 08:00 | PC.NURSE ---
critical result called from lab- Triponin 32.11. lab reports they will re run test and notify of result. attempted to contact physician to notify of result.
[2022-08-26 08:13] LABS: Troponin(5th) Baseline 3208 ng/L (0-15)
--- NOTE | 2022-08-26 08:14 | PC.NURSE ---
halley re ran result 32.08, physician called and notified.
--- NOTE | 2022-08-26 08:58 | PM.CONSULT ---
Providers/Reason For Consult Consulting Physician/Specialty*: Francis Israel MD/ Cardiology Reason for Consult*: Congestive heart failure/ troponin elevation Requesting Physician: Dr Downs Attending Physician: Gian Downs Primary Care Provider: Donavan Clemons MD History of Present Illness History of Present Illness Luis Alfredo Thompson is a 67 year old male with past medical history of CAD with CABG in the past and very simple angioplasty of LAD and PCI of SVG to RCA, congestive heart failure, CKD stage IV presented to the hospital with 3 days of worsening swelling of lower extremities and acute onset of shortness of breath (started on day of hospital presentation). According to patient on Wednesday, he started noticing shortness of breath and came to the hospital. It was associated with substernal chest discomfort. He did take multiple nitros that day. His troponins did not elevate significantly on the day of hospital presentation however today's troponin check is over 3000. Echocardiogram was performed that shows severely reduced LV systolic function with EF of 25 to 30%. This is a decrease from his previous echocardiogram last year. EKG showed sinus rhythm with interventricular conduction delay. Nonspecific ST-T wave changes are seen. Overnight he had more PVCs. His baseline creatinine is around 2.5. He was put on the Bumex and today creatinine is 3.4 with a BUN of 96. Review of Systems Const: Denies: fever(s) or chills Eyes: Denies: change in vision Card: Reports: chest pain, edema, swelling of feet/ankles and dyspnea on exertion Resp: Reports: dyspnea and non-productive cough GI: Denies: abdominal pain, nausea or vomiting : Denies: flank pain, difficulty urinating or dysuria Musc: Denies: muscle weakness Skin/Breast: Denies: rash Neuro: Denies: headache(s) Endo: Denies: polyuria or polydipsia Medications/Allergies Home Medications Medication Instructions Recorded Confirmed Last Taken Type ascorbic acid (vitamin C) 500 mg 500 mg PO [employer] #100 tabs 08/22/21 08/25/22 Unknown Rx tablet (Vitamin C) aspirin 81 mg tablet,delayed 81 mg PO QAM 90 days #90 tabs 08/22/21 08/25/22 Unknown Rx release ferrous sulfate 325 mg (65 mg 325 mg PO BIDWM iron deficiency 08/22/21 08/25/22 Unknown Rx iron) tablet,delayed release #100 tabs vitamin E 268 mg (400 unit) capsule 400 unit PO COUNTS INCLUDE 234 BEDS AT THE [facility] health #90 caps 08/22/21 08/25/22 Unknown Rx budesonide-formoterol HFA 80 2 inh inhalation BID lungs & 02/24/22 08/25/22 Unknown Rx mcg-4.5 mcg/actuation aerosol breathing 30 days #10.2 grams inhaler (Symbicort) bumetanide 1 mg tablet 2 mg PO DAILY Heart failure 30 02/24/22 08/25/22 Unknown Rx days #60 tabs glimepiride 2 mg tablet 2 mg PO BID glucose control #60 02/24/22 08/25/22 Unknown Rx tabs isosorbide mononitrate 30 mg 30 mg PO BID chest pain 90 days 02/24/22 08/25/22 Unknown Rx tablet,extended release 24 hr #180 tabs metolazone 5 mg tablet See Rx Instructions .Route 03/03/22 08/25/22 Unknown Rx .COMPLEX #60 tabs One touch test strips #1 ea 04/02/22 08/25/22 Unknown Rx prazosin 1 mg capsule See Rx Instructions .Route 04/05/22 08/25/22 Unknown Rx .COMPLEX #60 caps nitroglycerin 0.4 mg sublingual 0.4 mg sublingual Q5M PRN chest 05/01/22 08/25/22 Unknown Rx tablet (Nitrostat) pain #25 tabs pantoprazole 40 mg tablet,delayed 40 mg PO DAILY@12 acid reflux or 06/01/22 08/25/22 Unknown Rx release heart burn #30 tabs hydralazine 50 mg tablet 50 mg PO TID blood Pressure #270 06/11/22 08/25/22 Unknown Rx tabs triamcinolone acetonide 0.025 % 1 applic topical DAILY #454 grams 06/11/22 08/25/22 Unknown Rx topical cream metoprolol tartrate 50 mg tablet 50 mg PO BID blood pressure 30 06/18/22 08/25/22 Unknown Rx days #60 tabs atorvastatin 40 mg tablet See Rx Instructions .Route 07/07/22 08/25/22 Unknown Rx .COMPLEX #60 tabs ondansetron 4 mg disintegrating 4 mg PO Q6H PRN nausea and 07/07/22 08/25/22 Unknown Rx tablet vomiting #30 tabs metformin 1,000 mg tablet 1,000 mg PO BID 08/14/22 08/25/22 Unknown History prednisone 20 mg tablet 40 mg PO DAILY 5 days #10 tabs 08/24/22 08/25/22 Unknown Rx tramadol 50 mg tablet 50 mg PO Q8H PRN pain #10 tabs 08/24/22 08/25/22 Unknown Rx loratadine 10 mg tablet 10 mg PO DAILY 08/25/22 08/25/22 Unknown History simethicone 250 mg capsule 250 mg PO BID PRN Gastrointestinal 08/25/22 08/25/22 Unknown History Spasms Or Cramping Allergies Allergy/AdvReac Type Severity Reaction Status Date / Time Influenza Virus Vaccines Allergy Severe ADR-Hyperte Verified 08/25/22 09:11 nsion Penicillins Allergy ALGY-Anaphy Verified 08/25/22 09:11 laxis cillins Allergy ALGY-Anaphy Uncoded 08/24/22 11:02 laxis Current Medications Generic Name Dose Route Start Last Admin Trade Name Freq PRN Reason Stop Dose Admin Albuterol/Ipratropium 3 ml 08/25/22 08:00 08/26/22 07:59 Ipratropium-Albuterol 3 Ml Neb INHALATION 3 ml QID.RESPIRATORY SUNSHINE Administration Ascorbic Acid 500 mg 08/25/22 06:00 08/26/22 06:34 Ascorbic Acid 500 Mg Tablet PO 500 mg QAM SUNSHINE Administration Aspirin 81 mg 08/25/22 06:00 08/26/22 06:34 Aspirin 81 Mg Ec Tablet PO 81 mg QAM SUNSHINE Administration Atorvastatin Calcium 40 mg 08/25/22 21:00 08/25/22 20:18 Atorvastatin 40 Mg Tablet PO 40 mg BEDTIME SUNSHINE Administration Bumetanide 2 mg 08/26/22 06:00 08/26/22 06:35 Bumetanide 0.25 Mg/Ml Sdv 4 Ml IVP 2 mg Q12H SUNSHINE Administration Ferrous Sulfate 325 mg 08/25/22 08:00 08/25/22 17:40 Ferrous Sulfate Ec 325 Mg Tablet PO 325 mg BIDWM SUNSHINE Administration Hydralazine HCl 50 mg 08/25/22 00:27 08/25/22 23:49 Hydralazine 50 Mg Tablet PO 50 mg Q8H SUNSHINE Administration Insulin Glargine 10 unit 08/25/22 06:00 08/26/22 07:10 Insulin Glargine 100 Units/1 Ml SUBCUT 10 unit QAM SUNSHINE Administration Insulin Human Lispro 0 unit 08/25/22 08:00 08/25/22 17:39 Insulin Lispro 100 Unit/1 Ml SUBCUT 10 unit TIDWM SUNSHINE Administration Protocol Isosorbide Mononitrate 30 mg 08/25/22 00:27 08/25/22 23:48 Isosorbide Mononitrate Er 30 Mg Tablet PO 30 mg Q12H SUNSHINE Administration Methylprednisolone Sodium Succinate 40 mg 08/25/22 09:00 08/26/22 01:53 Methylprednisolone Sod Succ 40 Mg/Ml Inj IVP 40 mg Q8H SUNSHINE Administration Metoprolol Tartrate 50 mg 08/25/22 00:27 08/25/22 23:49 Metoprolol Tartrate 50 Mg Tablet PO 50 mg Q12H SUNSHINE Administration Morphine Sulfate 1 mg 08/25/22 02:00 08/25/22 02:24 Morphine 4 Mg/Ml Sdv 1 Ml IVP 1 mg Q4H PRN Administration PAIN Nitroglycerin 0.4 mg 08/24/22 20:52 08/24/22 21:28 Nitroglycerin 0.4 Mg Sublingual Tablet SUBLINGUAL 0.4 mg Q5M PRN Administration CHEST PAIN Ondansetron HCl 4 mg 08/25/22 00:27 08/25/22 17:27 Ondansetron 2 Mg/Ml Sdv 2 Ml IVP 4 mg Q8H PRN Administration vomiting, or N/V if npo Pantoprazole Sodium 40 mg 08/25/22 12:00 08/25/22 12:[address] 40 Mg Tablet PO 40 mg DAILY@12 SUNSHINE Administration Prazosin HCl 1 mg 08/25/22 09:00 08/25/22 17:40 Prazosin 1 Mg Capsule PO 1 mg BID SUNSHINE Administration Sodium Polystyrene Sulfonate 15 gm 08/25/22 03:30 08/26/22 03:47 Sodium Polystyrene Sulfonate 15 Gm/60 Ml Btl PO 15 gm Q12H SUNSHINE Administration PFSH Acute PFSH: Medical History Abnormal abdominal CT scan Acute non-ST segment elevation myocardial infarction (NSTEMI) following previous myocardial infarction Allergic rhinitis due to allergen Anemia, chronic renal failure Anemia, iron deficiency Atopic dermatitis and related condition Bilateral lower extremity edema CAD (coronary artery disease) remote CABG, NSTEMI, Stents 07/2021 Cellulitis of right lower leg CHF (congestive heart failure) Chronic nausea CKD stage 4 due to type 2 diabetes mellitus COPD (chronic obstructive pulmonary disease) Diabetes mellitus, type II Essential hypertension Hypercholesterolemia Inflammatory monoarthritis of right wrist Ischemic cardiomyopathy ORA on CPAP Sinus node dysfunction Surgical History History of appendectomy History of coronary artery stent placement Hx of CABG Family History Father Cancer Other Diabetes Social History Smoking and tobacco status: former smoker (06/2021) Quit status (tobacco): has quit using tobacco Year quit tobacco: June 2021 Former quit date comment: 1.5ppd x 57years Alcohol intake: current Alcohol intake frequency: holidays/special occasions only Alcohol type: beer Desire information about substance/drug rehabilitation?: No Caregiver/support person: No Lives independently: Yes Household members: spouse Marital status: Number of children: 2 service: No Current occupational status: retired and disabled History of recent travel: No Current gender identity: Male Vitals/I&O/Wt Last Vital Signs Temp 97.4 F L 08/26/22 08:00 Pulse 75 08/26/22 08:04 Resp 17 08/26/22 08:00 BP 153/62 08/26/22 08:00 Pulse Ox 98 08/26/22 08:00 O2 Del Method 08/26/22 08:00 O2 Flow Rate 30 08/26/22 07:59 FiO2 30 08/26/22 08:00 08/25/22 08/26/22 08/26/22 22:59 06:59 14:59 Output Total 800 / 800 250 / 1050 Balance -800 / -440 -250 / -690 Weight last 48 hrs Weight 157 lb Physical Exam Narrative: GENERAL: Patient is alert, awake and oriented x3. On BIPAP [] NECK: No jugular vein distension. [] HEENT: No cyanosis. No icterus. No pallor. [] HEART: Regular S1 and S2. LUNGS: Clear to auscultate bilaterally. [] CENTRAL NERVOUS SYSTEM: Grossly nonfocal. [] EXTREMITIES: Lower extremities with 1+ edema bilaterally. Urinary Catheter Management: Feng: Cath Placed During This Visit: no Reason for Continuing Indwelling Catheter: Other Data 08/26/22 05:58 08/26/22 05:58 A&P Assessment and plan (1) CHF exacerbation: (2) COPD exacerbation: (3) NSTEMI (non-ST elevated myocardial infarction): (4) CKD stage 4 due to type 2 diabetes mellitus: (5) CAD (coronary artery disease): (6) Bilateral lower extremity edema: (7) Acute on chronic respiratory failure with hypoxia: Plan Patient is presented with acute on chronic respiratory failure and had significant troponin elevation today. Continue diuresis. His CKD is worsening. Will recommend consulting nephrology. His troponins are quite high. He is chest pain-free. I have discussed all the options have with him. Medical management versus repeat coronary angiogram with significant risk of progressing to end-stage renal disease and permanent dialysis discussed. Patient and family will like to discuss with nephrology before proceeding. Start NSTEMI treatment with aspirin, Plavix and heparin drip Echocardiogram shows reduction in LV systolic function compared to before. Possibility of venous graft shutdown or akhiok LAD disease worsening cannot be ruled out. He is also having PVCs. Thank you for involving us with care of this patient. We will continue to follow. Please call with questions. Consult Attestations Medical Necessity Statement: Care expected to cross 2 midnights. Coding Level of Care Code Acute Code for [facility] Diagnoses CHF exacerbation I50.9 COPD exacerbation J44.1 NSTEMI (non-ST elevated myocardial infarction) I21.4 CKD stage 4 due to type 2 diabetes mellitus E11.22; N18.4 CAD (coronary artery disease) I25.10 Bilateral lower extremity edema R60.0 Acute on chronic respiratory failure with hypoxia J96.21
[2022-08-26] MEDS: ondansetron 2 mg/ML SDV 2 mL 4 MG IVP (09:36)
[2022-08-26] MEDS: prazosin 1 mg Capsule PO ×2 (09:38→17:57)
[2022-08-26] MEDS: heparin drip 25,000 UNIT/500 ML PREMIX 20 UNIT IV (09:38)
[2022-08-26] MEDS: hyDRALAzine 50 mg Tablet PO ×2 (09:38→17:21)
[2022-08-26] MEDS: ferrous sulfate EC 325 mg Tablet PO ×2 (09:39→17:21)
[2022-08-26] MEDS: insulin lispro 100 unit/1 mL SUBCUT ×3 (09:39→17:21)
[2022-08-26 10:14] LABS: Troponin 5 2HR Delta 99 ABS# (0-10)
[2022-08-26 10:15] LABS: Troponin 5 2HR 3307 ng/L (0-15)
[2022-08-26 11:48] LABS: Glucose Point of Care 410 mg/dL (70-110)
--- NOTE | 2022-08-26 12:43 | ECG_ITS ---
[facility] Test Date: 2022-08-26 Pat Name: Luis Alfredo Thompson Department: Room: 261 Gender: Male [employer] Functional Tester: : 1955 Requested By: Dean Danielle Order Number: [id number] Jack MD: Saba Sims M.D. Measurements Intervals [place] Rate: 75 P: 72 UT: 145 QRS: -8 QRSD: 120 T: 236 QT: 465 QTc: 521 Interpretive Statements SINUS RHYTHM WITH FREQUENT VENTRICULAR PREMATURE COMPLEXES POSSIBLE SEPTAL MYOCARDIAL INFARCTION , PROBABLY OLD [30 ms Q WAVE IN V1/V2] ST DEVIATION AND MODERATE T-WAVE ABNORMALITY, CONSIDER ANTEROLATERAL ISCHEMIA [-0.1+ mV T-WAVE IN V3-V6] ST DEVIATION AND MODERATE T-WAVE ABNORMALITY, CONSIDER INFERIOR ISCHEMIA [-0.1+ mV T-WAVE IN II/aVF] Compared to ECG 08/26/2022 07:59:54 Myocardial infarct finding now present Intraventricular conduction delay no longer present T-wave abnormality still present Possible ischemia still present Electronically Signed On 08-27-2022 10:12:05 [employer]NAGER [employer]MENT by Saba Sims M.D. [id number]
--- NOTE | 2022-08-26 12:47 | P.CONIM_ITS ---
Providers/Reason For Consult Consulting Physician/Specialty*: gwen nicole md / telenephrology Reason for Consult*: MARCELO on CKD stage 3b/ 4 Requesting Physician: Dr Benton Attending Physician: Gian Downs Primary Care Provider: Donavan Clemons MD History of Present Illness History of Present Illness Luis Alfredo Thompson is a 67 year old male w/ type 2 DM, CAD s/p stents and CABG, Obesity, ORA. Pt has known CKD stage 3b/4- baseline cr of 1.9- 2.5 mg/dl. Pt presented on 08/24/22 w/ sob, orthopnea, BERGMAN, CP. He was started on diuretics and steroids. He is urinating. However, his cr is rising. His troponins are + and on Echo his EF has decreased to 25%. CArdiology wants to perform a cardiac cath and renal is called to consult. Review of Systems Narrative: sob, orthopnea, weak, cp, edema. no n/v/f/c/suazo/urinary complaints Medications/Allergies Home Medications Medication Instructions Recorded Confirmed Last Taken Type ascorbic acid (vitamin C) 500 mg 500 mg PO [employer] get[employer]play #100 tabs 08/22/21 08/25/22 Unknown Rx tablet (Vitamin C) aspirin 81 mg tablet,delayed 81 mg PO QA 90 days #90 tabs 08/22/21 08/25/22 Unknown Rx release ferrous sulfate 325 mg (65 mg 325 mg PO BIDWM iron deficiency 08/22/21 08/25/22 Unknown Rx iron) tablet,delayed release #100 tabs vitamin E 268 mg (400 unit) capsule 400 unit PO [employer] #90 caps 08/22/21 08/25/22 Unknown Rx budesonide-formoterol HFA 80 2 inh inhalation BID lungs & 02/24/22 08/25/22 Unknown Rx mcg-4.5 mcg/actuation aerosol breathing 30 days #10.2 grams inhaler (Symbicort) bumetanide 1 mg tablet 2 mg PO DAILY Heart failure 30 02/24/22 08/25/22 Unknown Rx days #60 tabs glimepiride 2 mg tablet 2 mg PO BID glucose control #60 02/24/22 08/25/22 Unknown Rx tabs isosorbide mononitrate 30 mg 30 mg PO BID chest pain 90 days 02/24/22 08/25/22 Unknown Rx tablet,extended release 24 hr #180 tabs metolazone 5 mg tablet See Rx Instructions .Route 03/03/22 08/25/22 Unknown Rx .COMPLEX #60 tabs One touch test strips #1 ea 04/02/22 08/25/22 Unknown Rx prazosin 1 mg capsule See Rx Instructions .Route 04/05/22 08/25/22 Unknown Rx .COMPLEX #60 caps nitroglycerin 0.4 mg sublingual 0.4 mg sublingual Q5M PRN chest 05/01/22 Unknown Rx tablet (Nitrostat) pain #25 tabs pantoprazole 40 mg tablet,delayed 40 mg PO DAILY@12 acid reflux or 06/01/22 08/25/22 Unknown Rx release heart burn #30 tabs hydralazine 50 mg tablet 50 mg PO TID blood Pressure #270 06/11/22 08/25/22 Unknown Rx tabs triamcinolone acetonide 0.025 % 1 applic topical DAILY #454 grams 06/11/22 08/25/22 Unknown Rx topical cream metoprolol tartrate 50 mg tablet 50 mg PO BID blood pressure 30 06/18/22 08/25/22 Unknown Rx days #60 tabs atorvastatin 40 mg tablet See Rx Instructions .Route 07/07/22 08/25/22 Unknown Rx .COMPLEX #60 tabs ondansetron 4 mg disintegrating 4 mg PO Q6H PRN nausea and 07/07/22 08/25/22 Unknown Rx tablet vomiting #30 tabs metformin 1,000 mg tablet 1,000 mg PO BID 08/14/22 08/25/22 Unknown History prednisone 20 mg tablet 40 mg PO DAILY 5 days #10 tabs 08/24/22 08/25/22 Unknown Rx tramadol 50 mg tablet 50 mg PO Q8H PRN pain #10 tabs 08/24/22 08/25/22 Unknown Rx loratadine 10 mg tablet 10 mg PO DAILY 08/25/22 08/25/22 Unknown History simethicone 250 mg capsule 250 mg PO BID PRN Gastrointestinal 08/25/22 08/25/22 Unknown History Spasms Or Cramping Allergies Allergy/AdvReac Type Severity Reaction Status Date / Time Influenza Virus Vaccines Allergy Severe ADR-Hyperte Verified 08/25/22 09:11 nsion Penicillins Allergy ALGY-Anaphy Verified 08/25/22 09:11 laxis cillins Allergy ALGY-Anaphy Uncoded 08/24/22 11:02 laxis Current Medications Generic Name Dose Route Start Last Admin Trade Name Eduardo PRN Reason Stop Dose Admin Albuterol/Ipratropium 3 ml 08/25/22 08:00 08/26/22 11:15 Ipratropium-Albuterol 3 Ml Neb INHALATION 3 ml QID.RESPIRATORY SUNSHINE Administration Ascorbic Acid 500 mg 08/25/22 06:00 08/26/22 06:34 Ascorbic Acid 500 Mg Tablet PO 500 mg QAM SUNSHINE Administration Aspirin 81 mg 08/25/22 06:00 08/26/22 06:34 Aspirin 81 Mg Ec Tablet PO 81 mg QAM SUNSHINE Administration Atorvastatin Calcium 40 mg 08/25/22 21:00 08/25/22 20:18 Atorvastatin 40 Mg Tablet PO 40 mg BEDTIME SUNSHINE Administration Bumetanide 2 mg 08/26/22 06:00 08/26/22 06:35 Bumetanide 0.25 Mg/Ml Sdv 4 Ml IVP 2 mg Q12H SUNSHINE Administration Ferrous Sulfate 325 mg 08/25/22 08:00 08/26/22 09:39 Ferrous Sulfate Ec 325 Mg Tablet PO 325 mg BIDWM SUNSHINE Administration Hydralazine HCl 50 mg 08/25/22 00:27 08/26/22 09:38 Hydralazine 50 Mg Tablet PO 50 mg Q8H SUNSHINE Administration Heparin Sodium/Sodium Chloride 25,000 unit in 500 mls @ 0 mls/hr 08/26/22 08:30 08/26/22 09:38 Heparin Drip IV 14.04 unit/kg/hr .Q0M SUNSHINE 20 mls/hr Administration Protocol Per Protocol Insulin Glargine 10 unit 08/25/22 06:00 08/26/22 07:10 Insulin Glargine 100 Units/1 Ml SUBCUT 10 unit QAM [facility] Administration Insulin Human Lispro 0 unit 08/25/22 08:00 08/26/22 09:39 Insulin Lispro 100 Unit/1 Ml SUBCUT 1 unit TIDWM [facility] Administration Protocol Isosorbide Mononitrate 30 mg 08/25/22 00:27 08/25/22 23:48 Isosorbide Mononitrate Er 30 Mg Tablet PO 30 mg Q12H SUNSHINE Administration Methylprednisolone Sodium Succinate 40 mg 08/25/22 09:00 08/26/22 09:38 Methylprednisolone Sod Succ 40 Mg/Ml Inj IVP 40 mg Q8H SUNSHINE Administration Metoprolol Tartrate 50 mg 08/25/22 00:27 08/25/22 23:49 Metoprolol Tartrate 50 Mg Tablet PO 50 mg Q12H SUNSHINE Administration Morphine Sulfate 1 mg 08/25/22 02:00 08/25/22 02:24 Morphine 4 Mg/Ml Sdv 1 Ml IVP 1 mg Q4H PRN Administration PAIN Nitroglycerin 0.4 mg 08/24/22 20:52 08/24/22 21:28 Nitroglycerin 0.4 Mg Sublingual Tablet SUBLINGUAL 0.4 mg Q5M PRN Administration CHEST PAIN Ondansetron HCl 4 mg 08/25/22 00:27 08/26/22 09:36 Ondansetron 2 Mg/Ml Sdv 2 Ml IVP 4 mg Q8H PRN Administration vomiting, or N/V if npo Pantoprazole Sodium 40 mg 08/25/22 12:00 08/25/22 12:[address] 40 Mg Tablet PO 40 mg DAILY@12 SUNSHINE Administration Prazosin HCl 1 mg 08/25/22 09:00 08/26/22 09:38 Prazosin 1 Mg Capsule PO 1 mg BID SUNSHINE Administration Sodium Polystyrene Sulfonate 15 gm 08/25/22 03:30 08/26/22 03:47 Sodium Polystyrene Sulfonate 15 Gm/60 Ml Btl PO 15 gm Q12H SUNSHINE Administration PFSH Acute PFSH: Medical History Abnormal abdominal CT scan Acute non-ST segment elevation myocardial infarction (NSTEMI) following previous myocardial infarction Allergic rhinitis due to allergen Anemia, chronic renal failure Anemia, iron deficiency Atopic dermatitis and related condition Bilateral lower extremity edema CAD (coronary artery disease) remote CABG, NSTEMI, Stents 07/2021 Cellulitis of right lower leg CHF (congestive heart failure) Chronic nausea CKD stage 4 due to type 2 diabetes mellitus COPD (chronic obstructive pulmonary disease) Diabetes mellitus, type II Essential hypertension Hypercholesterolemia Inflammatory monoarthritis of right wrist Ischemic cardiomyopathy ORA on CPAP Sinus node dysfunction Surgical History History of appendectomy History of coronary artery stent placement Hx of CABG Family History Father Cancer Other Diabetes Social History Smoking and tobacco status: former smoker (06/2021) Quit status (tobacco): has quit using tobacco Year quit tobacco: June 2021 Former quit date comment: 1.5ppd x 57years Alcohol intake: current Alcohol intake frequency: holidays/special occasions only Alcohol type: beer Desire information about substance/drug rehabilitation?: No Caregiver/support person: No Lives independently: Yes Household members: spouse Marital status: Number of children: 2 service: No Current occupational status: retired and disabled History of recent travel: No Current gender identity: Male Vitals/I&O/Wt Last Vital Signs Temp 97.4 F L 08/26/22 08:00 Pulse 80 08/26/22 11:18 Resp 16 08/26/22 11:15 BP 153/62 08/26/22 08:00 Pulse Ox 100 08/26/22 11:15 O2 Del Method 08/26/22 11:15 O2 Flow Rate 2.5 08/26/22 11:15 FiO2 30 08/26/22 08:00 08/25/22 08/26/22 08/26/22 22:59 06:59 14:59 Intake Total 360 / 360 Output Total 800 / 800 250 / 1050 Balance -800 / -440 -250 / -690 360 / 360 Weight last 48 hrs Weight 71.214 kg Physical Exam Narrative: vs noted comfortable sitting up on NC02 heent0 nc/at,eomi neck supple lungs wheezes b/l heart reg, +VERONICA abd soft, nt, nd, + bs ext RT > left leg edema neuro a,a, o x 3 Urinary Catheter Management: Feng: Cath Placed During This Visit: no Reason for Continuing Indwelling Catheter: Other Data 08/26/22 05:58 08/26/22 05:58 A&P Assessment and plan (1) CKD stage 4 due to type 2 diabetes mellitus: 67 yr old man 1. +trop, dec EF, known CAD- high risk for OK- agree w/ need for cardiac cath. I explained the high renal risk to the pt and he consents to cardiac cath. He understands that there is risk of MARCELO and that he may need dialysis after the cardiac cath -he has acute HFrEF 2. CKD stage 4- from DM, HTN, CRS- -u/a w/ hematuria and proteinuria -no hydronephrosis on ct scan -check pth -given hematuria- can send some serologies 3. lactic acidosis on admission likeloy from metformin- stop metformin. repeat lactate, bicarbonate is improving 4. hyperkalemia improving 5. MARCELO- likely from CRS- new low EF and from meds including entresto, bumex, and metolazone -monitor uop 6. anemia management- check iron stduies. likely from ACD/ CKD related w/ high MCV 7. CHF per cardiology seen and examined w/ rN- telehealth visit time spent 1 hr informed consent for telehealth obtained from the pt discussed w/ DR Benton Plan see above Consult Attestations Medical Necessity Statement: +NSTEMI, MARCELO, CKD stage 4, CHF Time Spent in Patient Care: Greater than 35 minutes (>than 50% of time spent in counselling and/or direct pt care on unit) . Coding Level of Care Code Acute Code for [facility] Diagnoses CKD stage 4 due to type 2 diabetes mellitus E11.22; N18.4
[2022-08-26 12:50] LABS: Troponin 5 6HR Delta 148 ng/L (0-12)
[2022-08-26 12:52] LABS: Troponin 5 6HR 3356 ng/L (0-15)
[2022-08-26] MEDS: pantoprazole DR 40 mg Tablet PO (13:03)
[2022-08-26 13:42] LABS: Uric Acid 13.2 mg/dL (3.4-7.0)
[2022-08-26 13:52] LABS: Complement C3 138 mg/dL (90-180); Thyroid Stimulating Hormone 0.74 uIU/mL (0.27-4.20)
[2022-08-26] MEDS: metoprolol tartrate 50 mg Tablet PO (14:04)
[2022-08-26] MEDS: isosorbide mononitrate ER 30 mg Tablet PO (14:05)
[2022-08-26 16:31] LABS: Glucose Point of Care 441 mg/dL (70-110)
--- NOTE | 2022-08-26 19:11 | P.PN_ITS ---
Subjective Subjective: He states overall is doing okay. Denies chest pain. This morning troponin series were ordered reportedly due to frequent PVCs. Troponin noted very elevated, rising. He has been seen by cardiology. Discussed with him and his spouse. They understands severity of the situation given suspected NSTEMI with underlying CAD, and with decrease in ejection fraction, as well as high risk of renal failure, need for dialysis in case of contrast-induced nephropathy, and with cardiorenal syndrome in case of worsening renal function. He is breathing overall is little bit better. He denies any new symptoms. Vitals/I&O/Wt Last Vital Signs Temp 97.9 F 08/26/22 16:00 Pulse 80 08/26/22 16:00 Resp 18 08/26/22 16:00 BP 139/61 08/26/22 16:00 Pulse Ox 98 08/26/22 16:00 O2 Del Method 08/26/22 16:00 O2 Flow Rate 2 08/26/22 15:40 FiO2 30 08/26/22 08:00 08/26/22 08/26/22 08/26/22 06:59 14:59 22:59 Intake Total 720 / 720 240 / 960 Output Total 250 / 1050 550 / 550 Balance -250 / -690 720 / 720 -310 / 410 Weight last 48 hrs Weight 71.214 kg Physical Exam Narrative: at bedside Const: COMMON NORMALS: patient oriented x3 and alert GENERAL APPEARANCE: cooperative ORIENTATION/CONSCIOUSNESS: Yes awake HENMT: COMMON NORMALS: oropharynx normal Neck/C-Spine: COMMON NORMALS: no JVD Resp: COMMON NORMALS: normal respiratory effort and clear to auscultation bilaterally AUSCULTATION: clear to auscultation bilaterally and rales (Basis) Cardio: COMMON NORMALS: no JVD, regular rhythm, S1 normal heart sound present, S2 normal heart sound present and No murmurs present (Cardio) RHYTHM: regular rhythm HEART SOUNDS: S1 normal heart sound present and S2 normal heart sound present GI: COMMON NORMALS: Normal to inspection, nondistended, normoactive bowel sounds present, Soft to palpation and non-tender PALPATION: Yes Soft to palpation Extremity: COMMON NORMALS: no joint enlargement GENERAL: Yes edema (2+) Neuro: COMMON NORMALS: patient oriented x3 and moves all extremities SENSORIUM/ORIENTATION: Yes alert Skin: COMMON NORMALS: no rashes or lesions noted GENERAL SKIN EXAM: no rashes or lesions noted Urinary Catheter Management: Feng: Cath Placed During This Visit: yes Reason for Continuing Indwelling Catheter: Other Urinary Catheter Date of Insertion: 08/26/22 Urinary Catheter Time of Insertion: 06:00 Data 08/26/22 05:58 08/26/22 05:58 A&P Assessment and plan (1) NSTEMI (non-ST elevated myocardial infarction): Frequent PVCs overnight, troponins ordered. Troponin 3208 compared to 6 on the 16th. Suspicion of NSTEMI. Underlying CAD. Unfortunately also at high risk of worsening renal failure and need for dialysis. Discussed in detail with him and his spouse they are aware of elevated risks. Appreciate cardiology evaluation. Started on anticoagulation with heparin drip. Continue aspirin. Discussed also risk of bleeding with finding of ulcer. Also noted microscopic hematuria overnight, Feng placed today, no gross hematuria. His prescription cardiology will give Plavix as well tonight. Monitor for bleeding. Stop Solu-medrol (2) Acute on chronic respiratory failure with hypoxia: Hold diuretic in anticipation of further cardiac assessment tomorrow with angiography. Stop Solu-Medrol, breathing treatments. Added scheduled duo nebs. For now no antibiotic. He states whenever phlegm he has has been clear. Add sputum culture. (3) CKD stage 4 due to type 2 diabetes mellitus: MARCELO on CKD. Hold diuretic for now. At high risk of progression of renal failure. Feng placed this morning for I&O. No gross hematuria, no clots. Appreciate nephrology consultation. (4) CHF (congestive heart failure): Acute CHF exacerbation as above. Hold diuretic for now. 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 Change to low potassium diet. Hold Entresto. (15) Anemia: Plan Lactic acidosis: Has been showing improvement. Suspected secondary to hypoperfusion with CHF, hypoxic respiratory failure. Not suspected to be septic shock. Did have episode of vomiting last night. His points out he is a chronic kidney disease patient, he is concerned about anything that could injure his kidneys. For now requested only plain CT of the abdomen pelvis. Abdomen is nontender. On CT no free air noted. Duodenal ulceration, soft tissue infection involving duodenal mucosa, circumferential duodenal edema. Suspect this may have been responsible for his vomiting episode yesterday. Continue PPI. Minimal contracted gallbladder with small amount of wall thickening and edema. Ultrasound with mildly contracted gallbladder. No stones. Possible acalculous cholecystitis, but he is also nontender, and in acute CHF and suspect more likely related to congestive hepatopathy as indicated in the differential. Additionally found to have extensive calcification involving origin of SMA and celiac axis. 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 Placing him at risk of mesenteric ischemia. Reassess abdomen. Continue to monitor for any change in symptoms. Discussed with him and his . Stable bilateral adrenal myolipoma's. Chronic anemia, likely secondary CKD monitor Hyper kalemia, resolved Type 2 diabetes mellitus, low-dose sliding scale Hypertension, continue Imdur, Dralzine, metoprolol Right more than left lower extremity swelling, venous ultrasound without DVT Attestations Medical Necessity Statement*: Continue admission for assessment management of NSTEMI, with underlying CAD, prior bypass, in the setting of MARCELO on CKD Coding Level of Care Code [facility] NSTEMI (non-ST elevated myocardial infarction) I21.4 Acute on chronic respiratory failure with hypoxia J96.21 CKD stage 4 due to type 2 diabetes mellitus E11.22; N18.4 CHF (congestive heart failure) I50.9 Bilateral lower extremity edema R60.0 ORA on CPAP G47.33; Z99.89 Anemia, chronic renal failure N18.9; D63.1 COPD (chronic obstructive pulmonary disease) J44.9 Essential hypertension I10 Diabetes mellitus, type II E11.65 Diabetes mellitus assisted insulin use: without assisted use Diabetes mellitus complication status: with hyperglycemia CAD (coronary artery disease) I25.10 COPD exacerbation J44.1 CHF exacerbation I50.9 Hyperkalemia E87.5 Anemia D64.9
[2022-08-26] MEDS: clopidogrel 300 mg Tablet PO (19:54)
--- NOTE | 2022-08-26 19:57 | PC.NURSE ---
Patient is up to chair watching watching TV with in the room as well. Patient does not report any chest time at this time.
[2022-08-26] MEDS: sucralfate 1 gm Tablet PO (21:19)
[2022-08-26] MEDS: atorvastatin 40 mg Tablet PO (21:19)
[2022-08-26 21:36] LABS: Partial Thromboplastin Time 68.9 SECONDS (23.9-36.7)
[2022-08-26 21:47] LABS: Lactate (Lactic Acid level) 3.5 mmol/L (0.5-2.2)
[2022-08-26 22:06] LABS: Hepatitis C Virus Antibody Non-Reactive (Nonreactive)
[2022-08-26 22:07] LABS: Glucose Point of Care 278 mg/dL (70-110)
--- NOTE | 2022-08-26 23:59 | ECG_ITS ---
[facility] Test Date: 2022-08-26 Pat Name: Luis Alfredo Thompson Department: Room: 261 Gender: Male Cabinet Mounter: : 1955 Requested By: Dean Danielle Order Number: [id number] Jack MD: Francis Israel M.D. Measurements Intervals Normal Rate: 75 P: 53 IN: 148 QRS: -11 QRSD: 124 T: 231 QT: 492 QTc: 552 Interpretive Statements SINUS RHYTHM WITH FREQUENT VENTRICULAR PREMATURE COMPLEXES IN A BIGEMINAL PATTERN MODERATE INTRAVENTRICULAR CONDUCTION DELAY [110+ ms QRS DURATION] ST DEVIATION AND MODERATE T-WAVE ABNORMALITY, CONSIDER ANTEROLATERAL ISCHEMIA [-0.1+ mV T-WAVE IN V3-V6] ST DEVIATION AND MODERATE T-WAVE ABNORMALITY, CONSIDER INFERIOR ISCHEMIA [-0.1+ mV T-WAVE IN II/aVF] Compared to ECG 08/26/2022 12:43:14 Intraventricular conduction delay now present Myocardial infarct finding no longer present T-wave abnormality still present Possible ischemia still present Electronically Signed On 08-27-2022 14:45:36 NURSE ORTHOPEDIC by Francis Israel M.D. [id number]
[2022-08-27] VITALS (19 sets, daily range): BP systolic 131–162; BP diastolic 54–80; PULSE 40–98; RESP 13–22; TEMP 36.6–37.1; O2SAT 92–99
[2022-08-27] MEDS: metoprolol tartrate 50 mg Tablet PO ×2 (01:08→23:36)
[2022-08-27] MEDS: hyDRALAzine 50 mg Tablet PO ×4 (01:08→23:36)
[2022-08-27] MEDS: isosorbide mononitrate ER 30 mg Tablet PO ×2 (01:09→23:36)
[2022-08-27] MEDS: sodium polystyrene sulfonate 15 gm/60 mL Btl PO (03:31)
[2022-08-27 03:41] LABS: Potassium, Radom Urine 59 mmol/L; Urine Random Sodium 21 mmol/L
[2022-08-27 03:58] LABS: Urine Random Chloride < 10 mmol/L
[2022-08-27 04:02] LABS: Basophils % 0.1 %; Hematocrit 27.3 % (42.0-52.0); Hemoglobin 8.4 g/dL (11.7-16.6); Lymphocytes # 0.7 10^3/uL (0.8-4.8); Lymphocytes % 6.1 %; Mean Corpuscular HGB Conc 30.8 g/dL (30.0-36.0); Mean Corpuscular Hemoglobin 30.9 pg (28.0-34.0); Mean Corpuscular Volume 100.4 fl (80-94); Mean Platelet Volume 11.5 fL (7.4-10.4); Monocytes # 0.8 10^3/uL (0.2-0.9); Monocytes % 7.2 %; Neutrophils # 9.89 10^3/uL (1.8-7.7); Nucleated Red Blood Cells % 0 %; Platelet Count 224 10^3/cmm (130-400); Red Blood Count 2.72 10^6/uL (4.1-5.3); Red Cell Distribution Width 13.7 % (12.1-15.1); White Blood Count 11.5 10^3/uL (4.0-10.0)
[2022-08-27 04:13] LABS: Partial Thromboplastin Time 66.7 SECONDS (23.9-36.7)
[2022-08-27 04:34] LABS: Calcium 8.6 mg/dL (8.5-10.5)
[2022-08-27 04:41] LABS: Parathyroid Hormone 355.4 pg/mL (15-65)
[2022-08-27 04:49] LABS: 25 Hydroxy Vitamin D 16 ng/mL (30-100); Alanine Aminotransferase 102 U/L (0-41); Albumin Level 3.5 g/dL (3.5-5.2); Alkaline Phosphatase 69 U/L (40-130); Aspartate Amino Transferase 60 U/L (0-40); Calcium 8.5 mg/dL (8.5-10.5); Carbon Dioxide 25 mmol/L (22-29); Chloride 97 mmol/L (98-107); Ferritin 386 ng/mL (30-400); Globulin 2.8 g/dL (1.3-4.6); Glomerular Filtration Rate 18.1 mL/min (90-130); Glucose 243 mg/dL (65-115); Iron 95 ug/dL (59-158); Magnesium 2.1 mg/dL (1.7-2.3); Osmolality Calculated 321 mOsm/kg (285-295); Percent Saturation 40.4 % (20-50); Phosphorus 5.7 mg/dL (2.5-4.5); Sodium 136 mmol/L (136-145); Total Bilirubin 0.2 mg/dL (0.15-1.2); Total Iron Binding Capacity 235 mcg/dl; Total Protein 6.3 g/dL (6.6-8.7); Unsaturated Iron Binding 140 ug/dL (112-347)
[2022-08-27 06:04] LABS: Blood Urea Nitrogen 99 mg/dL (8-23)
[2022-08-27] MEDS: ascorbic acid 500 mg Tablet PO (06:05)
[2022-08-27] MEDS: sucralfate 1 gm Tablet PO ×2 (06:05→20:34)
[2022-08-27] MEDS: aspirin 81 mg EC Tablet PO (06:05)
--- NOTE | 2022-08-27 06:22 | ECG_ITS ---
[facility] Test Date: 2022-08-27 Pat Name: Luis Alfredo Thompson Department: Room: 261 Gender: Male Wheat Buyer: : 1955 Requested By: Francis Israel Order Number: [id number] Jack MD: Francis Israel M.D. Measurements Intervals [place] Rate: 74 P: 0 SC: 0 QRS: 195 QRSD: 128 T: -58 QT: 436 QTc: 485 Interpretive Statements SINUS RHYTHM WITH FREQUENT PVCs in a bigeminal patter LATERAL MYOCARDIAL INFARCTION , Age indeterminate Compared to ECG 08/26/2022 23:59:34 Myocardial infarct finding now present Ventricular premature complex(es) no longer present Intraventricular conduction delay no longer present T-wave abnormality no longer present Possible ischemia no longer present Electronically Signed On 08-27-2022 14:44:29 RECYCLING SPECIALIST by Francis Israel M.D. [id number]
[2022-08-27] MEDS: nitroglycerin 0.4 mg sublingual Tablet SUBLINGUAL (06:34)
[2022-08-27 06:35] LABS: Glucose Point of Care 229 mg/dL (70-110)
--- NOTE | 2022-08-27 06:35 | PC.NURSE ---
patient began having chest pain 12/16 at 0620. This nurse called and obtained an ekg on the patient. Dr. Danielle asked for nitro to be given. Patient is alert and oriented X4. Patient is saturating 97% on 2L nasal cannula at this time.
--- NOTE | 2022-08-27 06:39 | PC.NURSE ---
Patient reports chest pain is lessening at this time.
--- NOTE | 2022-08-27 06:46 | PC.NURSE ---
Patient reports chest pain has completely went away at this time.
--- NOTE | 2022-08-27 07:32 | P.PN_ITS ---
Subjective Subjective: seen and examined. still having CP- requiring SL NTG. no nausea. +SOB, + edema. +cp. no suazo. no urinary complaints Medications: Reviewed: Yes Medication Review Details: Current Medications Acetaminophen (Acetaminophen 325 Mg Tablet) 650 mg PO Q6H PRN PRN Reason: Mild/Mod Pain Or Temp >/= 101 Albuterol/Ipratropium (Ipratropium-Albuterol 3 Ml Neb) 3 ml INHALATION QID.RESPIRATORY [facility] Last Admin: 08/26/22 21:06 Dose: 3 ml Ascorbic Acid (Ascorbic Acid 500 Mg Tablet) 500 mg PO QAM [facility] Last Admin: 08/27/22 06:05 Dose: 500 mg Aspirin (Aspirin 81 Mg Ec Tablet) 81 mg PO QAM [facility] Last Admin: 08/27/22 06:05 Dose: 81 mg Atorvastatin Calcium (Atorvastatin 40 Mg Tablet) 40 mg PO BEDTIME [facility] Last Admin: 08/26/22 21:19 Dose: 40 mg Bumetanide (Bumetanide 0.25 Mg/Ml Sdv 4 Ml) 2 mg IVP Q12H [facility] Last Admin: 08/26/22 06:35 Dose: 2 mg Dextrose (Dextrose 50% Syringe 50 Ml) 25 ml IVP ONCE PRN; Protocol PRN Reason: hypoglycemia protocol Dextrose (Dextrose 50% Syringe 50 Ml) 50 ml IVP PRN PRN; Protocol PRN Reason: hypoglycemia protocol Ferrous Sulfate (Ferrous Sulfate Ec 325 Mg Tablet) 325 mg PO BIDWM [facility] Last Admin: 08/26/22 17:21 Dose: 325 mg Glucagon (Glucagon 1 Mg/Ml Inj 1 Ml) 1 mg IM ONCE PRN; Protocol PRN Reason: Adult Acute Hypoglycemia Prot. Heparin Sodium (Porcine) (Heparin 5,000 Unit/Ml Inj 1 Ml) 0 unit IV PRN PRN; Protocol PRN Reason: Heparin weight-base protocol Hydralazine HCl (Hydralazine 50 Mg Tablet) 50 mg PO Q8H [facility] Last Admin: 08/27/22 01:08 Dose: 50 mg Dextrose (D5w) 500 mls @ 100 mls/hr IV ONCE PRN; Protocol PRN Reason: Adult Acute Hypoglycemia Prot Heparin Sodium/Sodium Chloride (Heparin Drip) 25,000 unit in 500 mls @ 0 mls/hr IV .Q0M [facility]; Protocol Last Admin: 08/26/22 09:38 Dose: 14.04 unit/kg/hr, 20 mls/hr Insulin Glargine (Insulin Glargine 100 Units/1 Ml) 10 unit SUBCUT QAM [facility] Last Admin: 08/26/22 07:10 Dose: 10 unit Insulin Human Lispro (Insulin Lispro 100 Unit/1 Ml) 0 unit SUBCUT TIDWM [facility]; Protocol Last Admin: 08/26/22 17:21 Dose: 1 unit Isosorbide Mononitrate (Isosorbide Mononitrate Er 30 Mg Tablet) 30 mg PO Q12H [facility] Last Admin: 08/27/22 01:09 Dose: 30 mg Metoprolol Tartrate (Metoprolol Tartrate 50 Mg Tablet) 50 mg PO Q12H [facility] Last Admin: 08/27/22 01:08 Dose: 50 mg Morphine Sulfate (Morphine 4 Mg/Ml Sdv 1 Ml) 1 mg IVP Q4H PRN PRN Reason: PAIN Last Admin: 08/25/22 02:24 Dose: 1 mg Nitroglycerin (Nitroglycerin 0.4 Mg Sublingual Tablet) 0.4 mg SUBLINGUAL Q5M PRN PRN Reason: CHEST PAIN Last Admin: 08/24/22 21:28 Dose: 0.4 mg Nitroglycerin (Nitroglycerin 0.4 Mg Sublingual Tablet) 0.4 mg SUBLINGUAL Q5M PRN PRN Reason: chest pain Last Admin: 08/27/22 06:34 Dose: 0.4 mg Non-Formulary Medication (Simethicone [Gas Relief (Simethicone)]) 250 mg PO QID PRN PRN Reason: Abdominal Discomfort Ondansetron HCl (Ondansetron 2 Mg/Ml Sdv 2 Ml) 4 mg IVP Q8H PRN PRN Reason: vomiting, or N/V if npo Last Admin: 08/26/22 09:36 Dose: 4 mg Pantoprazole Sodium (Pantoprazole Dr 40 Mg Tablet) 40 mg PO DAILY@12 [facility] Last Admin: 08/26/22 13:03 Dose: 40 mg Prazosin HCl (Prazosin 1 Mg Capsule) 1 mg PO BID [facility] Last Admin: 08/26/22 17:57 Dose: 1 mg Sodium Polystyrene Sulfonate (Sodium Polystyrene Sulfonate 15 Gm/60 Ml Btl) 15 gm PO Q12H [facility] Last Admin: 08/27/22 03:31 Dose: 15 gm Sucralfate (Sucralfate 1 Gm Tablet) 1 gm PO AC&BEDTIME [facility] Last Admin: 08/27/22 06:05 Dose: 1 gm Vitals/I&O/Wt Last Vital Signs Temp 98.1 F 08/27/22 04:00 Pulse 70 08/27/22 04:00 Resp 16 08/27/22 04:00 BP 154/59 08/27/22 06:45 Pulse Ox 96 08/27/22 04:00 O2 Del Method 08/27/22 04:00 O2 Flow Rate 2 08/26/22 21:10 FiO2 30 08/27/22 00:15 08/26/22 08/27/22 08/27/22 22:59 06:59 14:59 Intake Total 240 / 960 Output Total 800 / 800 150 / 950 Balance -560 / 160 -150 / 10 Physical Exam Narrative: vs noted comfortable sitting up on NC02 heent- nc/at,eomi neck supple lungs crackles b/l heart reg, +VERONICA abd soft, nt, nd, + bs ext RT > left leg edema neuro a,a, o x 3 Urinary Catheter Management: Feng: Cath Placed During This Visit: yes Reason for Continuing Indwelling Catheter: Other Urinary Catheter Date of Insertion: 08/26/22 Urinary Catheter Time of Insertion: 06:00 Data 08/27/22 03:35 08/27/22 03:35 A&P Assessment and plan (1) CKD stage 4 due to type 2 diabetes mellitus: 67 yr old man 1. NSTEMI: He has +trop, dec EF, known CAD- high risk for IL- agree w/ need for cardiac cath. I explained the high renal risk to the pt and he consents to cardiac cath. He understands that there is risk of MARCELO and that he may need dialysis after the cardiac cath -he has acute HFrEF and continues to have CP +trop 3208 2. CKD stage 4- from DM, HTN, CRS- -u/a w/ hematuria and proteinuria -no hydronephrosis on ct scan -check pth -given hematuria- f/u serologies -phos 5.7 - if continues to rise, then add a phos binder -pth 355- calcitriol 3. lactic acidosis on admission likely from metformin- stop metformin. repeat lactate 3.5. - bicarbonate is now normal 4. hyperkalemia improving 5. MARCELO- likely from CRS- new low EF and from meds including entresto, bumex, and metolazone -monitor uop -cr stabilized -ur na 21 q/w prerenal azotemia- bumex on hold 6. anemia management- iron sat 40%, ferritin 386- unlikely CRISSY - likely from ACD/ CKD related w/ high MCV 7. CHF per cardiology uric acid 13.2- likely from diuretics- start allopurinol. 8. COPD on steroids/ nebs 9. DM management per [place] 10. replete vit d seen and examined w/ rN- telehealth visit time spent 30 informed consent for telehealth obtained from the pt discussed w/ RN, pt, and pts Plan see above Attestations Medical Necessity Statement*: NSTEMI, MARCELO, anemia Time Spent in Patient Care: 16 - 35 minutes (>than 50% of time spent in c ounselling and/or direct pt care on unit) . Coding Level of Care Code Acute Code for g [facility] Diagnoses CKD stage 4 due to type 2 diabetes mellitus E11.22; N18.4
[2022-08-27] MEDS: ipratropium-albuterol 3 mL Neb INHALATION ×3 (08:02→21:34)
--- NOTE | 2022-08-27 09:30 | XACV_ITS ---
Exam Room: 2 Ht: 163 cm Wt: 71 kg BSA: 1.81 m2 Gender: Male : 1955 Any Known Allergies: Penicillins Exam Priority: Routine Procedure(s): Procedure Description: Diagnostic procedure Procedure Description: Left Heart Catheterization Procedure Description: Venous Graft Catheterization Procedure Description: Miscellaneous Procedure Description: ACT Procedure Description: Coronary Angiography Diagnostic Cath Status: Urgent Diagnostic Findings * INDICATION: 67-year-old man with past medical history of coronary artery disease status post CABG, CKD was presented to hospital with the pulmonary edema and troponin went over 3000. After discussion with patient and nephrology, decision made to proceed with coronary angiogram. Risks and benefits of procedure have been discussed including ELIZABETH even leading to need for permanent dialysis. * Left main artery * : Patent. LAD: Has patent prior stents. Distal vessel has diffuse disease. Left circumflex artery: Occluded. SVG to RCA: Patent. SVGto OM: Known occluded . * Coronary angiography shows right dominance. Conclusions 1. Left main artery 2. : Patent. LAD: Has patent prior stents. Distal vessel has diffuse disease. Left circumflex artery: Occluded. SVG to RCA: Patent. SVGto OM: Known occluded . 3. Coronary anatomy unchanged from before. 4. Patient has prior CABG. Recommendations * Aggressive risk factor modification. * Will need hydration to avoid ELIZABETH. Interventional RX Recommendation: medical therapy and/or counseling Diagnostic RX Recommendation: medical therapy and/or counseling Pressures Phase:Rest AO : 117 / 62 ( 84 ) @ 11:11:00 AM 126 / 48 ( 87 ) @ 11:16:00 AM 142 / 59 ( 88 ) @ 11:19:00 AM 131 / 60 ( 87 ) @ 11:19:00 AM LV : 125 / 7 / 19 @ 11:19:00 AM 120 / 12 / 17 @ 11:19:00 AM Valves Phase:DefaultPhase AV : 0.0 @ 11:30:52 AM AV Mean Gradient: 0.0 @ 11:30:52 AM 0.0 @ 11:30:52 AM Clinical Evaluation EBL: 5mL-10mL Procedural Details Procedure Consent Obtained. Admit Source: In Patient. Pre-Procedure Time Out. Identified patient by full name and date of as verbalized by the patient/guarantor. Does the consent match the physician's order: Yes. Accurate & Complete Informed Consent: Yes. Inpatient/Outpatient History & Physical on Chart: Yes. If H&P is completed, is and addenduem needed: No; If yes, is the addendum complete: N/A. Visualize and Verify Site with Patient/Guarantor: N/A. Relevant Radiology Images available: Yes. The risks, benefits, and alternatives of sedation and/or procedure were discussed by physician. The patient agrees to continue. Leticia Melvin RN was relieved by Rhonda Dunn RN as monitoring person. Procedure started. [facility] Clinical Fraility Score: 4: Vulnerable. 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 Chest Pain Symptom Assessment: Typical Angina Symptoms. Correct patient, site and procedure confirmed by cath team. Current diagnosis: NSTEMI. PERRLA. Strong, equal hand safety trainer bilaterally. Lungs clear x 5 lobes. IV Site on Arrival: 20 gauge in the left anticubital. IV Fluids: 0.9% NaCl at KVO. 0 mL infused prior to cath lab radiological technologist. Pre Procedural Pulses: bilateral dorsalis pedis was 1+. Oxygen started at 2liters/min via nasal canula. right groin was prepped with chloroprep then draped in the usual sterile fashion. left groin was prepped with chloroprep then draped in the usual sterile fashion. Baseline sample Acquired. HR: 92 BPM. Physician notified. Physician arrived. Physician scrubbed in. Immediate Pre-Procedure Time Out. Correct Patient: Yes; Correct Procedure: Yes; Correct Site: Yes; Correct Patient Position: Yes; Correct Supplies: Yes; Dried Flammable Prep: Yes; Blood Products Available: N/A;. Lidocaine 1% infiltrated to the right groin. Arterial access obtained with micropuncture set. A 5 mongolian JL4 catheter in over wire. Multiple views taken of left coronary artery. Catheter removed over the standard wire. A 6 mongolian MPA1 catheter in over wire. SVG's to RCA visualized and patent. EDP Sample taken: LV 125/7,19; HR: 51 BPM; SpO2: 98%. Pullback taken: LV 120/12,17; AO 142/59(88); Mean: 0mmHg, Peak to Peak: 0mmHg, SEP: 3sec/min; HR: 68 BPM; SpO2: 98%. Catheter and wire removed. ACT drawn. Results 128 seconds. Therapeutic limits - pre-heparin administration 90-150 seconds and monitoring heparin during a vascular procedure >250 seconds. Post-op diagnosis: Patent LAD, Patent SVG to RCA. A Suture was successful obtaining hemostatsis at the Right Femoral artery insertion site. Sheath(s) sutured into position with 2-0 silk and sterile 4x4's and Op-site applied over the site. No oozing or signs and symptoms of hematoma noted. Post Procedure: Pulses reassessed and unchanged. PERRLA. Strong, equal hand safety trainer bilaterally. No VTE prophylaxis required. Medication's Wasted: Heparin = 1000 u. Medication's Wasted: Lidocaine 1% = 3 mL. Medication's Wasted: Other = fentanyl 50 mcg. Total IV fluids: 28 mL. Complications: none. Estimated blood loss: 5mL-10mL. Responsiveness - Normal response to verbal stimuli; alert and oriented, PERRLA. Airway - Unaffected, no intervention required; spontaneous ventilation. Circulation: W/N/L, pulses unchanged. Nausea/Vomiting: No. Procedure completed. Patient transferred by bed to CPRU. Vital chart was stopped. Access Site Site: Right Femoral artery Sheath Size: 6 Fr Hemostasis Method: Suture Hemostasis Success: Successful Procedure Medications Start: 11:07 AM Stop: 11:07 AM Medication: Versed Amount: 1 mg Route: I.V. Start: 11:07 AM Stop: 11:07 AM Medication: Fentanyl Amount: 50 mcg Route: I.V. Start: 11:10 AM Stop: 11:10 AM Medication: Versed Amount: 1 mg Route: I.V. I, the attending physician, have reviewed and verified all procedure medications. Yes, all medications given per verbal order History/Risk Factors Hypertension: Yes Dyslipidemia: Yes Peripheral Arterial Disease (PAD): No Myocardial Infarction (LA): Yes Obesity: No Renal Disease: Yes Tobacco Use: Former Prior Interventions PCI: Yes CABG: Yes Valve Surgery: No Date of PCI: 12/08/2021 Report Signatures Finalized by Francis Israel MD on 09/02/2022 02:48 PM
[2022-08-27] MEDS: allopurinol 100 mg Tablet PO (09:37)
[2022-08-27 09:46] LABS: Glucose Point of Care 207 mg/dL (70-110)
--- NOTE | 2022-08-27 10:54 | W.PM.OPSUD ---
Surgery/Procedure H&P Update DATE OF PROCEDURE: August 27, 2022 DATE H&P PERFORMED: 08/26/22 H&P UPDATE INFORMATION: I have reviewed H&P completed within last 30 days, I have examined patient prior to procedure and No changes to prior documentation PREOP DIAGNOSIS: NSTEMI PRIMARY INDICATION FOR PROCEDURE: NSTEMI PLANNED PROCEDURE: Left heart cath with possible percutaneous coronary intervention PATIENT REASSESSED PRIOR TO SEDATION, WITH NO CHANGE NOTED: Yes PHYSICAL EXAM: alert, oriented x 3, clear to auscultation bilaterally and regular rate & rhythm AIRWAY EVAL/ANESTHESIA PLAN: normal airway, ASA IV, Local Anesthesia, Risks, benefits & alternatives of sedation and/or procedure discussed and Patient agrees to continue as planned ADDITIONAL INFORMATION: Moderate sedation
--- NOTE | 2022-08-27 11:36 | SUR.PHASEI ---
RECOVERY NOTE Patient brought to CPRU pending bed availability for recovery. Status post cardiac catheterization via the right femoral approach. 6FR sheath with pressure bag to the right femoral artery. Removed upon arrival by Leticia Melvin RN. Femoral access site free of hematoma after sheath removal. Assessments per flowsheet. Call light in reach. Informed to call for needs.
--- NOTE | 2022-08-27 13:30 | PC.NURSE ---
Pt arrived to the floor at 1310, alert and oriented. Spouse at bedside. Instructions given on laying no higher than 30 degrees, to keep leg still, and not use it. Call light in reach. Dressing dry and intact to right groin. Site soft to touch.
--- NOTE | 2022-08-27 15:07 | XRR_ITS ---
PROCEDURE INFORMATION: Exam: XR Chest Exam date and time: 08/27/2022 3:14 PM Age: 67 years old Clinical indication: Dyspnea; Patient HX: Hypoxia, follow up, had angiogram today TECHNIQUE: Imaging protocol: Radiologic exam of the chest. Views: 1 view. COMPARISON: CR (CHEST, ) 08/24/2022 9:12 PM FINDINGS: Lungs: Interval improvement in appearance of the lungs or CHF appearance from previous exam is suggested. No consolidation. Pleural spaces: Possible minimal or trace effusion at the right costophrenic angle. Heart/Mediastinum: Postsurgical changes of CABG. [id number] cardiomegaly. Bones/joints: Mild spondylotic change thoracic spine. XR/XR chest 1V portable [id number] IMPRESSION: Interval improvement in CHF from previous exam. Postsurgical changes of CABG and [id number] cardiomegaly, with possible minimal or trace effusion at the right costophrenic angle.
--- NOTE | 2022-08-27 15:52 | PC.NURSE ---
LE @ 1400 Pt resting quietly. Dressing dry and intact to right groin.
--- NOTE | 2022-08-27 15:53 | PC.NURSE ---
Dressing dry and intact to right groin. Voices no c/o pain or discomfort.
[2022-08-27 16:40] LABS: Glucose Point of Care 188 mg/dL (70-110)
[2022-08-27] MEDS: ferrous sulfate EC 325 mg Tablet PO (17:13)
[2022-08-27] MEDS: sennosides-docusate Tablet 1 TAB PO (17:13)
[2022-08-27] MEDS: polyethylene glycol 3350 Pkt 17 gm PO (17:14)
[2022-08-27] MEDS: prazosin 1 mg Capsule PO (17:14)
--- NOTE | 2022-08-27 17:18 | PM.PN ---
Subjective Subjective: Patient is doing well. He underwent coronary angiogram today that showed patent SVG to RCA and patent [place]. This is unchanged from prior cardiac catheterization. Vitals/I&O/Wt Last Vital Signs Temp 98.1 F 08/27/22 15:28 Pulse 73 08/27/22 16:10 Resp 18 08/27/22 16:07 BP 131/77 08/27/22 15:28 Pulse Ox 98 08/27/22 16:07 O2 Del Method 08/27/22 16:07 O2 Flow Rate 3 08/27/22 16:07 FiO2 30 08/27/22 00:15 08/27/22 08/27/22 08/27/22 06:59 14:59 22:59 Output Total 150 / 950 Balance -150 / 10 Physical Exam Narrative: GENERAL: Patient is alert, awake and oriented x3. On BIPAP [] NECK: No jugular vein distension. [] HEENT: No cyanosis. No icterus. No pallor. [] HEART: Regular S1 and S2. LUNGS: Clear to auscultate bilaterally. [] CENTRAL NERVOUS SYSTEM: Grossly nonfocal. [] EXTREMITIES: Lower extremities with 1+ edema bilaterally. Urinary Catheter Management: Feng: Cath Placed During This Visit: yes Reason for Continuing Indwelling Catheter: Other Urinary Catheter Date of Insertion: 08/26/22 Urinary Catheter Time of Insertion: 06:00 Data 08/27/22 03:35 08/27/22 03:35 A&P Assessment and plan (1) CHF exacerbation: (2) COPD exacerbation: (3) NSTEMI (non-ST elevated myocardial infarction): (4) CKD stage 4 due to type 2 diabetes mellitus: (5) CAD (coronary artery disease): (6) Bilateral lower extremity edema: (7) Acute on chronic respiratory failure with hypoxia: Plan After discussion with patient and with nephrology team, we have proceeded with coronary angiogram. His anatomy is unchanged from before and of SVG to RCA is patent. He also has a patent [place]. Medical therapy for congestive heart failure. We will need to closely monitor his renal function. We will start gentle IV fluids as LVEDP was not too high. Echocardiogram shows reduction in LV systolic function compared to before. Possibility of venous graft shutdown or [place] L[place] disease worsening cannot be ruled out. He is also having PVCs. Thank you for involving us with care of this patient. We will continue to follow. Please call with questions. Attestations Medical Necessity Statement*: Care expected to cross 2 midnights. Coding Level of Care Code Acute Code for g Fwd Diagnoses CHF exacerbation I50.9 COPD exacerbation J44.1 NSTEMI (non-ST elevated myocardial infarction) I21.4 CKD stage 4 due to type 2 diabetes mellitus E11.22; N18.4 CAD (coronary artery disease) I25.10 Bilateral lower extremity edema R60.0 Acute on chronic respiratory failure with hypoxia J96.21
[2022-08-27] MEDS: atorvastatin 40 mg Tablet PO (20:34)
--- NOTE | 2022-08-27 20:45 | P.PN_ITS ---
Subjective Subjective: Extremities doing okay after his angiogram. Denies chest pain or pressure. No trouble breathing on current oxygen. Has been having constipation. Medications: Reviewed: Yes Medication Review Details: Current Medications Acetaminophen (Acetaminophen 325 Mg Tablet) 650 mg PO Q6H PRN PRN Reason: Mild/Mod Pain Or Temp >/= 101 Albuterol/Ipratropium (Ipratropium-Albuterol 3 Ml Neb) 3 ml INHALATION QID.RESPIRATORY [facility] Last Admin: 08/26/22 21:06 Dose: 3 ml Ascorbic Acid (Ascorbic Acid 500 Mg Tablet) 500 mg PO QAM [facility] Last Admin: 08/27/22 06:05 Dose: 500 mg Aspirin (Aspirin 81 Mg Ec Tablet) 81 mg PO QAM [facility] Last Admin: 08/27/22 06:05 Dose: 81 mg Atorvastatin Calcium (Atorvastatin 40 Mg Tablet) 40 mg PO BEDTIME [facility] Last Admin: 08/26/22 21:19 Dose: 40 mg Bumetanide (Bumetanide 0.25 Mg/Ml Sdv 4 Ml) 2 mg IVP Q12H [facility] Last Admin: 08/26/22 06:35 Dose: 2 mg Dextrose (Dextrose 50% Syringe 50 Ml) 25 ml IVP ONCE PRN; Protocol PRN Reason: hypoglycemia protocol Dextrose (Dextrose 50% Syringe 50 Ml) 50 ml IVP PRN PRN; Protocol PRN Reason: hypoglycemia protocol Ferrous Sulfate (Ferrous Sulfate Ec 325 Mg Tablet) 325 mg PO BIDWM [facility] Last Admin: 08/26/22 17:21 Dose: 325 mg Glucagon (Glucagon 1 Mg/Ml Inj 1 Ml) 1 mg IM ONCE PRN; Protocol PRN Reason: Adult Acute Hypoglycemia Prot. Heparin Sodium (Porcine) (Heparin 5,000 Unit/Ml Inj 1 Ml) 0 unit IV PRN PRN; P rotocol PRN Reason: Heparin weight-base protocol Hydralazine HCl (Hydralazine 50 Mg Tablet) 50 mg PO Q8H [facility] Last Admin: 08/27/22 01:08 Dose: 50 mg Dextrose (D5w) 500 mls @ 100 mls/hr IV ONCE PRN; Protocol PRN Reason: Adult Acute Hypoglycemia Prot Heparin Sodium/Sodium Chloride (Heparin Drip) 25,000 unit in 500 mls @ 0 mls/hr IV .Q0M [facility]; Protocol Last Admin: 08/26/22 09:38 Dose: 14.04 unit/kg/hr, 20 mls/hr Insulin Glargine (Insulin Glargine 100 Units/1 Ml) 10 unit SUBCUT QAM [facility] Last Admin: 08/26/22 07:10 Dose: 10 unit Insulin Human Lispro (Insulin Lispro 100 Unit/1 Ml) 0 unit SUBCUT TIDWM [facility]; Protocol Last Admin: 08/26/22 17:21 Dose: 1 unit Isosorbide Mononitrate (Isosorbide Mononitrate Er 30 Mg Tablet) 30 mg PO Q12H [facility] Last Admin: 08/27/22 01:09 Dose: 30 mg Metoprolol Tartrate (Metoprolol Tartrate 50 Mg Tablet) 50 mg PO Q12H [facility] Last Admin: 08/27/22 01:08 Dose: 50 mg Morphine Sulfate (Morphine 4 Mg/Ml Sdv 1 Ml) 1 mg IVP Q4H PRN PRN Reason: PAIN Last Admin: 08/25/22 02:24 Dose: 1 mg Nitroglycerin (Nitroglycerin 0.4 Mg Sublingual Tablet) 0.4 mg SUBLINGUAL Q5M PRN PRN Reason: CHEST PAIN Last Admin: 08/24/22 21:28 Dose: 0.4 mg Nitroglycerin (Nitroglycerin 0.4 Mg Sublingual Tablet) 0.4 mg SUBLINGUAL Q5M PRN PRN Reason: chest pain Last Admin: 08/27/22 06:34 Dose: 0.4 mg Non-Formulary Medication (Simethicone [Gas Relief (Simethicone)]) 250 mg PO QID PRN PRN Reason: Abdominal Discomfort Ondansetron HCl (Ondansetron 2 Mg/Ml Sdv 2 Ml) 4 mg IVP Q8H PRN PRN Reason: vomiting, or N/V if npo Last Admin: 08/26/22 09:36 Dose: 4 mg Pantoprazole Sodium (Pantoprazole Dr 40 Mg Tablet) 40 mg PO DAILY@12 [facility] Last Admin: 08/26/22 13:03 Dose: 40 mg Prazosin HCl (Prazosin 1 Mg Capsule) 1 mg PO BID [facility] Last Admin: 08/26/22 17:57 Dose: 1 mg Sodium Polystyrene Sulfonate (Sodium Polystyrene Sulfonate 15 Gm/60 Ml Btl) 15 gm PO Q12H [facility] Last Admin: 08/27/22 03:31 Dose: 15 gm Sucralfate (Sucralfate 1 Gm Tablet) 1 gm PO AC&BEDTIME [facility] Last Admin: 08/27/22 06:05 Dose: 1 gm Vitals/I&O/Wt Last Vital Signs Temp 98.8 F 08/27/22 19:46 Pulse 82 08/27/22 19:46 Resp 21 H 08/27/22 19:46 BP 142/77 08/27/22 19:46 Pulse Ox 98 08/27/22 19:46 O2 Del Method 08/27/22 19:46 O2 Flow Rate 3 08/27/22 19:46 FiO2 30 08/27/22 16:00 08/27/22 08/27/22 08/27/22 06:59 14:59 22:59 Output Total 150 / 950 Balance -150 / 10 Physical Exam Narrative: at bedside Const: COMMON NORMALS: patient oriented x3 and alert GENERAL APPEARANCE: cooperative ORIENTATION/CONSCIOUSNESS: Yes awake HENMT: COMMON NORMALS: oropharynx normal Neck/C-Spine: COMMON NORMALS: no JVD Resp: COMMON NORMALS: normal respiratory effort and clear to auscultation bilaterally AUSCULTATION: clear to auscultation bilaterally and rales (Basis) Cardio: COMMON NORMALS: no JVD, regular rhythm, S1 normal heart sound present, S2 normal heart sound present and No murmurs present (Cardio) RHYTHM: regular rhythm HEART SOUNDS: S1 normal heart sound present and S2 normal heart sound present GI: COMMON NORMALS: Normal to inspection, nondistended, normoactive bowel sounds present, Soft to palpation and non-tender PALPATION: Yes Soft to palpation Extremity: COMMON NORMALS: no joint enlargement GENERAL: Yes edema (2+) Neuro: COMMON NORMALS: patient oriented x3 and moves all extremities SENSORIUM/ORIENTATION: Yes alert Skin: COMMON NORMALS: no rashes or lesions noted GENERAL SKIN EXAM: no rashes or lesions noted Urinary Catheter Management: Feng: Cath Placed During This Visit: yes Reason for Continuing Indwelling Catheter: Other Urinary Catheter Date of Insertion: 08/26/22 Urinary Catheter Time of Insertion: 06:00 Data 08/27/22 03:35 08/27/22 03:35 A&P Assessment and plan (1) NSTEMI (non-ST elevated myocardial infarction): Status post angiogram today. No new blockages noted. Consideration of nonischemic cardiomyopathy. Appreciate cardiology evaluation. Stop heparin drip. Continue aspirin. Receiving gentle IV hydration (2) Acute on chronic respiratory failure with hypoxia: Held diuretic in anticipation of angiography. Repeat chest x-ray. Off Solu-Medrol,Continue breathing treatments. scheduled duo nebs. For now no antibiotic. He states whenever phlegm he has has been clear. Add sputum culture. (3) CKD stage 4 due to type 2 diabetes mellitus: Minimal contrast used during angiography. Receiving gentle hydration. Reassess renal function. MARCELO on CKD. Hold diuretic for now. At high risk of progression of renal failure. Feng placed this morning for I&O. No gross hematuria, no clots. Appreciate nephrology consultation. (4) CHF (congestive heart failure): Acute CHF exacerbation as above. Hold diuretic for now. (5) Bilateral lower extremity edema: (6) ORA on CPAP: (7) Anemia, chronic renal failure: (8) COPD (chronic obstructive pulmonary disease): (9) Essential hypertension: (10) Diabetes mellitus, type II: Qualifiers: Diabetes mellitus longterm insulin use: without longterm use Diabetes mellitus complication status: with hyperglycemia Qualified Code(s): E11.65 - Type 2 diabetes mellitus with hyperglycemia (11) CAD (coronary artery disease): (12) COPD exacerbation: As above (13) CHF exacerbation: (14) Hyperkalemia: Next dose is increased. Change to low potassium diet. Hold Entresto. (15) Anemia: Plan Lactic acidosis: Has been showing improvement. Suspected secondary to hypoperfusion with CHF, hypoxic respiratory failure. Not suspected to be septic shock. Did have episode of vomiting last night. His points out he is a chronic kidney disease patient, he is concerned about anything that could injure his kidneys. For now requested only plain CT of the abdomen pelvis. Abdomen is nontender. On CT no free air noted. Duodenal ulceration, soft tissue infection involving duodenal mucosa, circumferential duodenal edema. Suspect this may have been responsible for his vomiting episode yesterday. Continue PPI. Minimal contracted gallbladder with small amount of wall thickening and edema. Ultrasound with mildly contracted gallbladder. No stones. Possible acalculous cholecystitis, but he is also nontender, and in acute CHF and suspect more likely related to congestive hepatopathy as indicated in the differential. Additionally found to have extensive calcification involving origin of SMA and celiac axis. 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 Placing him at risk of mesenteric ischemia. Abdomen remains benign. Continue to monitor for any change in symptoms. Discussed with him and his . Stable bilateral adrenal myolipoma's. Constipation: Escalate bowel regimen. Add MiraLAX, Dulcolax. Chronic anemia, likely secondary CKD monitor Hyper kalemia, resolved Type 2 diabetes mellitus, low-dose sliding scale Hypertension, continue Imdur, Dralzine, metoprolol Right more than left lower extremity swelling, venous ultrasound without DVT Attestations Medical Necessity Statement*: Continue admission for assessment of management of respiratory failure, CHF with MARCELO on CKD, worsened EF Coding Level of Care Code Acute Code for Chg Fwd Diagnoses NSTEMI (non-ST elevated myocardial infarction) I21.4 Acute on chronic respiratory failure with hypoxia J96.21 CKD stage 4 due to type 2 diabetes mellitus E11.22; N18.4 CHF (congestive heart failure) I50.9 Bilateral lower extremity edema R60.0 ORA on CPAP G47.33; Z99.89 Anemia, chronic renal failure N18.9; D63.1 COPD (chronic obstructive pulmonary disease) J44.9 Essential hypertension I10 Diabetes mellitus, type II E11.65 Diabetes mellitus longterm insulin use: without longterm use Diabetes mellitus complication status: with hyperglycemia CAD (coronary artery disease) I25.10 COPD exacerbation J44.1 CHF exacerbation I50.9 Hyperkalemia E87.5 Anemia D64.9
[2022-08-27 21:07] LABS: Glucose Point of Care 243 mg/dL (70-110)
[2022-08-27] MEDS: simethicone 80 mg Chew PO (21:10)
[2022-08-28] VITALS (20 sets, daily range): BP systolic 131–151; BP diastolic 51–71; PULSE 67–81; RESP 18–26; TEMP 36.4–37.2; O2SAT 94–100
[2022-08-28 04:23] LABS: Basophils % 0.1 %; Eosinophils % 0.1 %; Hematocrit 27.1 % (42.0-52.0); Lymphocytes % 6.6 %; Mean Corpuscular HGB Conc 29.5 g/dL (30.0-36.0); Mean Corpuscular Hemoglobin 30.7 pg (28.0-34.0); Mean Corpuscular Volume 103.8 fl (80-94); Mean Platelet Volume 11.4 fL (7.4-10.4); Monocytes # 1.4 10^3/uL (0.2-0.9); Monocytes % 9.4 %; Neutrophils # 12.16 10^3/uL (1.8-7.7); Nucleated Red Blood Cells % 0.1 %; Platelet Count 224 10^3/cmm (130-400); Red Blood Count 2.61 10^6/uL (4.1-5.3); Red Cell Distribution Width 13.9 % (12.1-15.1); White Blood Count 14.7 10^3/uL (4.0-10.0)
[2022-08-28 04:57] LABS: Alanine Aminotransferase 107 U/L (0-41); Albumin Level 3.5 g/dL (3.5-5.2); Alkaline Phosphatase 67 U/L (40-130); Anion Gap 21.3 (5-19); Aspartate Amino Transferase 42 U/L (0-40); Calcium 7.7 mg/dL (8.5-10.5); Carbon Dioxide 23 mmol/L (22-29); Chloride 96 mmol/L (98-107); Globulin 2.6 g/dL (1.3-4.6); Glomerular Filtration Rate 19.4 mL/min (90-130); Glucose 256 mg/dL (65-115); Magnesium 2.1 mg/dL (1.7-2.3); Osmolality Calculated 323 mOsm/kg (285-295); Phosphorus 5.2 mg/dL (2.5-4.5); Potassium 3.3 mmol/L (3.5-5.1); Sodium 137 mmol/L (136-145); Total Bilirubin 0.2 mg/dL (0.15-1.2); Total Protein 6.1 g/dL (6.6-8.7)
[2022-08-28 05:05] LABS: Blood Urea Nitrogen 96 mg/dL (8-23)
[2022-08-28] MEDS: aspirin 81 mg EC Tablet PO (05:47)
[2022-08-28] MEDS: simethicone 80 mg Chew PO ×2 (05:47→12:32)
[2022-08-28] MEDS: sucralfate 1 gm Tablet PO ×4 (05:47→20:50)
[2022-08-28] MEDS: ascorbic acid 500 mg Tablet PO (05:47)
[2022-08-28] MEDS: insulin glargine 100 units/1 mL 10 UNIT SUBCUT (05:47)
--- NOTE | 2022-08-28 06:46 | PM.PN ---
Subjective Subjective: Patient is stable. No chest pain. has shortness of breath but much improved than before. Renal function is stable. Vitals/I&O/Wt Last Vital Signs Temp 98.9 F 08/28/22 04:00 Pulse 80 08/28/22 06:00 Resp 24 H 08/28/22 04:00 BP 151/68 08/28/22 04:00 Pulse Ox 98 08/28/22 04:00 O2 Del Method 08/28/22 04:00 O2 Flow Rate 3 08/28/22 04:00 FiO2 30 08/28/22 00:10 08/27/22 08/27/22 08/28/22 14:59 22:59 06:59 Intake Total 60 / 60 440 / 500 Output Total 475 / 475 Balance 60 / 60 - Physical Exam Narrative: GENERAL: Patient is alert, awake and oriented x3. On BIPAP [] NECK: No jugular vein distension. [] HEENT: No cyanosis. No icterus. No pallor. [] HEART: Regular S1 and S2. LUNGS: Clear to auscultate bilaterally. [] CENTRAL NERVOUS SYSTEM: Grossly nonfocal. [] EXTREMITIES: Lower extremities with 1+ edema bilaterally. Urinary Catheter Management: Feng: Cath Placed During This Visit: yes Reason for Continuing Indwelling Catheter: Other Urinary Catheter Date of Insertion: 08/26/22 Urinary Catheter Time of Insertion: 06:00 Data 08/28/22 03:46 08/28/22 03:46 A&P Assessment and plan (1) CHF exacerbation: (2) COPD exacerbation: (3) NSTEMI (non-ST elevated myocardial infarction): (4) CKD stage 4 due to type 2 diabetes mellitus: (5) CAD (coronary artery disease): (6) Bilateral lower extremity edema: (7) Acute on chronic respiratory failure with hypoxia: Plan Patient's coronary anatomy is unchanged from before. No intervention needed. Medical therapy for congestive heart failure. Renal function is stable. Can restart low-dose Lasix. Echocardiogram shows reduction in LV systolic function compared to before. Thank you for involving us with care of this patient. We will continue to follow. Please call with questions. Attestations Medical Necessity Statement*: Care expected to cross 2 midnights. Coding Level of Care Code Acute Code for [facility] Diagnoses CHF exacerbation I50.9 COPD exacerbation J44.1 NSTEMI (non-ST elevated myocardial infarction) I21.4 CKD stage 4 due to type 2 diabetes mellitus E11.22; N18.4 CAD (coronary artery disease) I25.10 Bilateral lower extremity edema R60.0 Acute on chronic respiratory failure with hypoxia J96.21
[2022-08-28 06:52] LABS: Glucose Point of Care 267 mg/dL (70-110)
--- NOTE | 2022-08-28 07:00 | P.PN_ITS ---
Subjective Subjective: states he feels better. reports chronic excess GI gas not improved with Frequent simethicone Vitals/I&O/Wt Last Vital Signs Temp 98.9 F 08/28/22 04:00 Pulse 80 08/28/22 06:00 Resp 24 H 08/28/22 04:00 BP 151/68 08/28/22 04:00 Pulse Ox 98 08/28/22 04:00 O2 Del Method 08/28/22 04:00 O2 Flow Rate 3 08/28/22 04:00 FiO2 30 08/28/22 00:10 08/27/22 08/28/22 08/28/22 22:59 06:59 14:59 Intake Total 60 / 60 440 / 500 Output Total 475 / 475 Balance 60 / 60 -35 / 25 Physical Exam Const: COMMON NORMALS: no acute distress and alert Resp: AUSCULTATION: rales Cardio: COMMON NORMALS: regular rate and regular rhythm RATE: regular rate RHYTHM: regular rhythm Extremity: GENERAL: Yes edema Neuro: SENSORIUM/ORIENTATION: Yes alert Urinary Catheter Management: Feng: Cath Placed During This Visit: yes Reason for Continuing Indwelling Catheter: Other Urinary Catheter Date of Insertion: 08/26/22 Urinary Catheter Time of Insertion: 06:00 Data 08/28/22 03:46 08/28/22 03:46 Other Labs: PTH 355, 25(OH)D 16, calcium 7.7, albumin 3.5, phos 5.2, Mg 2.1 TSAT 40%, SF 386 CXR: Radiologist's impression: 08/27: Interval improvement in CHF from previous exam.? Postsurgical changes of CABG and [id number] cardiomegaly, with possible minimal or trace effusion at the right costophrenic angle. CT Abd/Pel: Radiologist's impression: Right kidney: Normal size kidney with mild perinephric stranding. Stable exophytic low-attenuation mass from the lower pole. Left kidney: Normal size kidney with mild perinephric stranding. Bilateral exophytic low-attenuation masses. Other data: seen via telemedicine with assistance of RN at bedside A&P Assessment and plan (1) CKD stage 4 due to type 2 diabetes mellitus: Plan 1. Acute kidney injury, s/p contrast, unclear if urine output is falling today. May need to start hemodialysis 2. Stage 4 CKD due to diabetic nephropathy 3. Nonischemic cardiomyopathy, volume overload - improved 4. Anemia, iron replete, due to CKD, begin epogen. Stop iron (constipation) 5. Secondary hyperparathyroidism, vitamin D deficiency, started ergocalciferol 50,000 u weekly 6. Hypokalemia, had received kayexylate for hyperkalemia. RN gave OJ today 7. GI symptoms. Rec stop sucralfate (should avoid Al products in advanced CKD) and begin PPI I had a long discussion with Luis Alfredo and his . He is very close to needing [employer]. I discussed HD, PD, access for each. He is agreeable to HD if recommended. Please consult surgery for possible tunneled HD catheter placement. Attestations Medical Necessity Statement*: see above Time Spent in Patient Care: Greater than 35 minutes Coding Level of Care Code Acute Code for Chg Fwd Diagnoses CKD stage 4 due to type 2 diabetes mellitus E11.22; N18.4
[2022-08-28] MEDS: insulin lispro 100 unit/1 mL SUBCUT ×3 (07:41→18:32)
[2022-08-28] MEDS: hyDRALAzine 50 mg Tablet PO ×3 (08:00→23:48)
[2022-08-28] MEDS: ipratropium-albuterol 3 mL Neb INHALATION ×4 (08:12→19:07)
[2022-08-28] MEDS: prazosin 1 mg Capsule PO ×2 (08:39→18:40)
[2022-08-28] MEDS: allopurinol 100 mg Tablet PO (08:39)
[2022-08-28] MEDS: sennosides-docusate Tablet 1 TAB PO ×2 (08:39→18:32)
[2022-08-28] MEDS: polyethylene glycol 3350 Pkt 17 gm PO ×2 (08:40→18:32)
[2022-08-28 10:55] LABS: Anti-Double Strand DNA AB 1 IU/mL
[2022-08-28 11:30] LABS: Glucose Point of Care 263 mg/dL (70-110)
[2022-08-28] MEDS: isosorbide mononitrate ER 30 mg Tablet PO ×2 (12:31→23:48)
[2022-08-28] MEDS: pantoprazole DR 40 mg Tablet PO (12:32)
[2022-08-28] MEDS: metoprolol tartrate 50 mg Tablet PO ×2 (12:32→23:48)
--- NOTE | 2022-08-28 12:54 | PM.PN ---
Subjective Subjective: Denies chest pain. Denies any worsening of shortness of breath. Still having constipation. They have discussed this morning regarding hemodialysis. They state they would like to wait and recheck his renal function again tomorrow before deciding to proceed with dialysis catheter placement. Medications: Reviewed: Yes Medication Review Details: Current Medications Acetaminophen (Acetaminophen 325 Mg Tablet) 650 mg PO Q6H PRN PRN Reason: Mild/Mod Pain Or Temp >/= 101 Albuterol/Ipratropium (Ipratropium-Albuterol 3 Ml Neb) 3 ml INHALATION QID.RESPIRATORY [facility] Last Admin: 08/26/22 21:06 Dose: 3 ml Ascorbic Acid (Ascorbic Acid 500 Mg Tablet) 500 mg PO QAM [facility] Last Admin: 08/27/22 06:05 Dose: 500 mg Aspirin (Aspirin 81 Mg Ec Tablet) 81 mg PO QAM [facility] Last Admin: 08/27/22 06:05 Dose: 81 mg Atorvastatin Calcium (Atorvastatin 40 Mg Tablet) 40 mg PO BEDTIME [facility] Last Admin: 08/26/22 21:19 Dose: 40 mg Bumetanide (Bumetanide 0.25 Mg/Ml Sdv 4 Ml) 2 mg IVP Q12H [facility] Last Admin: 08/26/22 06:35 Dose: 2 mg Dextrose (Dextrose 50% Syringe 50 Ml) 25 ml IVP ONCE PRN; Protocol PRN Reason: hypoglycemia protocol Dextrose (Dextrose 50% Syringe 50 Ml) 50 ml IVP PRN PRN; Protocol PRN Reason: hypoglycemia protocol Ferrous Sulfate (Ferrous Sulfate Ec 325 Mg Tablet) 325 mg PO BIDWM [facility] Last Admin: 08/26/22 17:21 Dose: 325 mg Glucagon (Glucagon 1 Mg/Ml Inj 1 Ml) 1 mg IM ONCE PRN; Protocol PRN Reason: Adult Acute Hypoglycemia Prot. Heparin Sodium (Porcine) (Heparin 5,000 Unit/Ml Inj 1 Ml) 0 unit IV PRN PRN; Protocol PRN Reason: Heparin weight-base protocol Hydralazine HCl (Hydralazine 50 Mg Tablet) 50 mg PO Q8H [facility] Last Admin: 08/27/22 01:08 Dose: 50 mg Dextrose (D5w) 500 mls @ 100 mls/hr IV ONCE PRN; Protocol PRN Reason: Adult Acute Hypoglycemia Prot Heparin Sodium/Sodium Chloride (Heparin Drip) 25,000 unit in 500 mls @ 0 mls/hr IV .Q0M [facility]; Protocol Last Admin: 08/26/22 09:38 Dose: 14.04 unit/kg/hr, 20 mls/hr Insulin Glargine (Insulin Glargine 100 Units/1 Ml) 10 unit SUBCUT QAM [facility] Last Admin: 08/26/22 07:10 Dose: 10 unit Insulin Human Lispro (Insulin Lispro 100 Unit/1 Ml) 0 unit SUBCUT TIDWM [facility]; Protocol Last Admin: 08/26/22 17:21 Dose: 1 unit Isosorbide Mononitrate (Isosorbide Mononitrate Er 30 Mg Tablet) 30 mg PO Q12H [facility] Last Admin: 08/27/22 01:09 Dose: 30 mg Metoprolol Tartrate (Metoprolol Tartrate 50 Mg Tablet) 50 mg PO Q12H [facility] Last Admin: 08/27/22 01:08 Dose: 50 mg Morphine Sulfate (Morphine 4 Mg/Ml Sdv 1 Ml) 1 mg IVP Q4H PRN PRN Reason: PAIN Last Admin: 08/25/22 02:24 Dose: 1 mg Nitroglycerin (Nitroglycerin 0.4 Mg Sublingual Tablet) 0.4 mg SUBLINGUAL Q5M PRN PRN Reason: CHEST PAIN Last Admin: 08/24/22 21:28 Dose: 0.4 mg Nitroglycerin (Nitroglycerin 0.4 Mg Sublingual Tablet) 0.4 mg SUBLINGUAL Q5M PRN PRN Reason: chest pain Last Admin: 08/27/22 06:34 Dose: 0.4 mg Non-Formulary Medication (Simethicone [Gas Relief (Simethicone)]) 250 mg PO QID PRN PRN Reason: Abdominal Discomfort Ondansetron HCl (Ondansetron 2 Mg/Ml Sdv 2 Ml) 4 mg IVP Q8H PRN PRN Reason: vomiting, or N/V if npo Last Admin: 08/26/22 09:36 Dose: 4 mg Pantoprazole Sodium (Pantoprazole Dr 40 Mg Tablet) 40 mg PO DAILY@12 [facility] Last Admin: 08/26/22 13:03 Dose: 40 mg Prazosin HCl (Prazosin 1 Mg Capsule) 1 mg PO BID [facility] Last Admin: 08/26/22 17:57 Dose: 1 mg Sodium Polystyrene Sulfonate (Sodium Polystyrene Sulfonate 15 Gm/60 Ml Btl) 15 gm PO Q12H [facility] Last Admin: 08/27/22 03:31 Dose: 15 gm Sucralfate (Sucralfate 1 Gm Tablet) 1 gm PO AC&BEDTIME [facility] Last Admin: 08/27/22 06:05 Dose: 1 gm Vitals/I&O/Wt Last Vital Signs Temp 97.5 F L 08/28/22 07:19 Pulse 78 08/28/22 11:05 Resp 18 08/28/22 11:00 BP 131/51 08/28/22 12:04 Pulse Ox 98 08/28/22 11:00 O2 Del Method 08/28/22 11:00 O2 Flow Rate 3 08/28/22 11:00 FiO2 30 08/28/22 00:10 08/27/22 08/28/22 08/28/22 22:59 06:59 14:59 Intake Total 60 / 60 440 / 500 240 / 240 Output Total 475 / 475 Balance 60 / 60 -35 / 25 240 / 240 Weight last 48 hrs Weight 75.614 kg Physical Exam Narrative: at bedside Const: COMMON NORMALS: patient oriented x3 and alert GENERAL APPEARANCE: cooperative ORIENTATION/CONSCIOUSNESS: Yes awake OTHER: Sleeping. Wakes up easily. HENMT: COMMON NORMALS: oropharynx normal Neck/C-Spine: COMMON NORMALS: no JVD Resp: COMMON NORMALS: normal respiratory effort and clear to auscultation bilaterally AUSCULTATION: clear to auscultation bilaterally and rales (Basis) Cardio: COMMON NORMALS: no JVD, regular rhythm, S1 normal heart sound present, S2 normal heart sound present and No murmurs present (Cardio) RHYTHM: regular rhythm HEART SOUNDS: S1 normal heart sound present and S2 normal heart sound present GI: COMMON NORMALS: Normal to inspection, nondistended, normoactive bowel sounds present, Soft to palpation and non-tender PALPATION: Yes Soft to palpation Extremity: COMMON NORMALS: no joint enlargement GENERAL: Yes edema (2+) Neuro: COMMON NORMALS: patient oriented x3 and moves all extremities SENSORIUM/ORIENTATION: Yes alert Skin: COMMON NORMALS: no rashes or lesions noted GENERAL SKIN EXAM: no rashes or lesions noted Urinary Catheter Management: Feng: Cath Placed During This Visit: yes Reason for Continuing Indwelling Catheter: Other Urinary Catheter Date of Insertion: 08/26/22 Urinary Catheter Time of Insertion: 06:00 Data 08/28/22 03:46 08/28/22 03:46 A&P Assessment and plan (1) Acute on chronic respiratory failure with hypoxia: Resume lower dose diuretic. Appreciate also nephrology assessment, consideration to initiate hemodialysis given lack of improvement in renal function, chronic progressive kidney disease. Discussing with patient and his they state would like to wait a day or 2 with reassessment of renal function before placement of dialysis catheter and decision to proceed. Repeat chest x-ray some improvement in CHF. Off Solu-Medrol,Continue breathing treatments. scheduled duo nebs. For now no antibiotic. He states whenever phlegm he has has been clear. Add sputum culture. (2) CKD stage 4 due to type 2 diabetes mellitus: Appreciate also nephrology assessment, consideration to initiate hemodialysis given lack of improvement in renal function, chronic progressive kidney disease. Discussing with patient and his they state would like to wait a day or 2 with reassessment of renal function before placement of dialysis catheter and decision to proceed. Will need to be set up for outpatient dialysis as well. Minimal contrast used during angiography. (3) CHF (congestive heart failure): Acute CHF exacerbation as above. Resume lower dose diuretic for now. (4) NSTEMI (non-ST elevated myocardial infarction): Status post angiogram 08/27. No new blockages noted. Consideration of nonischemic cardiomyopathy. Appreciate cardiology evaluation. Stop heparin drip. Continue aspirin. Receiving gentle IV hydration (5) Bilateral lower extremity edema: (6) ORA on CPAP: (7) Anemia, chronic renal failure: (8) COPD (chronic obstructive pulmonary disease): (9) Essential hypertension: (10) Diabetes mellitus, type II: Qualifiers: Diabetes mellitus superintendent marine oil terminal insulin use: without snf use Diabetes mellitus complication status: with hyperglycemia Qualified Code(s): E11.65 - Type 2 diabetes mellitus with hyperglycemia (11) CAD (coronary artery disease): (12) COPD exacerbation: As above (13) CHF exacerbation: (14) Hyperkalemia: Next dose is increased. Change to low potassium diet. Hold Entresto. (15) Anemia: Plan Lactic acidosis: Has been showing improvement. Suspected secondary to hypoperfusion with CHF, hypoxic respiratory failure. Not suspected to be septic shock. Did have episode of vomiting last night. His points out he is a chronic kidney disease patient, he is concerned about anything that could injure his kidneys. For now requested only plain CT of the abdomen pelvis. Abdomen is nontender. On CT no free air noted. Duodenal ulceration, soft tissue infection involving duodenal mucosa, circumferential duodenal edema. Suspect this may have been responsible for his vomiting episode yesterday. Continue PPI. Minimal contracted gallbladder with small amount of wall thickening and edema. Ultrasound with mildly contracted gallbladder. No stones. Possible acalculous cholecystitis, but he is also nontender, and in acute CHF and suspect more likely related to congestive hepatopathy as indicated in the differential. Additionally found to have extensive calcification involving origin of SMA and celiac axis. 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 Placing him at risk of mesenteric ischemia. Abdomen remains benign. Continue to monitor for any change in symptoms. Discussed with him and his . Stable bilateral adrenal myolipoma's. Constipation: Milk of magnesia x1. Dulcolax suppository as needed. Escalate bowel regimen. Add MiraLAX. Chronic anemia, likely secondary CKD monitor Hyperkalemia, resolved Type 2 diabetes mellitus, low-dose sliding scale Hypertension, continue Imdur, hydralazine, metoprolol Right more than left lower extremity swelling, venous ultrasound without DVT Attestations Medical Necessity Statement*: Continue admission for management of acute CHF, cardiorenal syndrome on top of CKD, possible initiation of hemodialysis. Coding Level of Care Code Acute Code for Chg Fwd Diagnoses Acute on chronic respiratory failure with hypoxia J96.21 CKD stage 4 due to type 2 diabetes mellitus E11.22; N18.4 CHF (congestive heart failure) I50.9 NSTEMI (non-ST elevated myocardial infarction) I21.4 Bilateral lower extremity edema R60.0 ORA on CPAP G47.33; Z99.89 Anemia, chronic renal failure N18.9; D63.1 COPD (chronic obstructive pulmonary disease) J44.9 Essential hypertension I10 Diabetes mellitus, type II E11.65 Diabetes mellitus snf insulin use: without superintendent marine oil terminal use Diabetes mellitus complication status: with hyperglycemia CAD (coronary artery disease) I25.10 COPD exacerbation J44.1 CHF exacerbation I50.9 Hyperkalemia E87.5 Anemia D64.9
[2022-08-28] MEDS: magnesium hydroxide 30 mL UDC PO (13:36)
[2022-08-28] MEDS: bumetanide 0.25 mg/mL SDV 4 mL 0.5 MG IVP (13:36)
[2022-08-28] MEDS: epoetin alfa 1000 Unit/0.05 mL (ESRD) 20000 UNIT SUBCUT (13:36)
--- NOTE | 2022-08-28 13:38 | PC.SOCIAL ---
IMM Update pg 2 of IMM updated and reviewed w/ patient. Copy provided and Copy dated, initialed and placed in chart.
[2022-08-28 16:13] LABS: Glucose Point of Care 268 mg/dL (70-110)
[2022-08-28] MEDS: atorvastatin 40 mg Tablet PO (20:50)
[2022-08-28 21:04] LABS: Glucose Point of Care 252 mg/dL (70-110)
[2022-08-29] VITALS (16 sets, daily range): BP systolic 122–146; BP diastolic 32–74; PULSE 69–85; RESP 16–25; TEMP 36.5–37.1; O2SAT 92–98
[2022-08-29] MEDS: simethicone 80 mg Chew PO (04:10)
[2022-08-29 05:23] LABS: Eosinophils # 0.1 10^3/uL (0.0-0.8); Eosinophils % 0.6 %; Hematocrit 25.9 % (42.0-52.0); Hemoglobin 7.6 g/dL (11.7-16.6); Lymphocytes # 1.3 10^3/uL (0.8-4.8); Lymphocytes % 10.2 %; Mean Corpuscular HGB Conc 29.3 g/dL (30.0-36.0); Mean Corpuscular Hemoglobin 30.2 pg (28.0-34.0); Mean Corpuscular Volume 102.8 fl (80-94); Mean Platelet Volume 11.5 fL (7.4-10.4); Monocytes # 1.1 10^3/uL (0.2-0.9); Monocytes % 8.7 %; Neutrophils # 9.81 10^3/uL (1.8-7.7); Neutrophils % 79.9 %; Nucleated Red Blood Cells % 0.2 %; Platelet Count 215 10^3/cmm (130-400); Red Blood Count 2.52 10^6/uL (4.1-5.3); Red Cell Distribution Width 13.8 % (12.1-15.1); White Blood Count 12.3 10^3/uL (4.0-10.0)
[2022-08-29 05:40] LABS: Alanine Aminotransferase 88 U/L (0-41); Albumin Level 3.4 g/dL (3.5-5.2); Alkaline Phosphatase 83 U/L (40-130); Anion Gap 17.4 (5-19); Aspartate Amino Transferase 28 U/L (0-40); Calcium 7.9 mg/dL (8.5-10.5); Carbon Dioxide 26 mmol/L (22-29); Chloride 95 mmol/L (98-107); Globulin 2.8 g/dL (1.3-4.6); Glomerular Filtration Rate 21.7 mL/min (90-130); Glucose 189 mg/dL (65-115); Magnesium 2.4 mg/dL (1.7-2.3); Osmolality Calculated 316 mOsm/kg (285-295); Phosphorus 4.5 mg/dL (2.5-4.5); Potassium 3.4 mmol/L (3.5-5.1); Sodium 135 mmol/L (136-145); Total Bilirubin 0.3 mg/dL (0.15-1.2); Total Protein 6.2 g/dL (6.6-8.7)
[2022-08-29 06:00] LABS: Blood Urea Nitrogen 98 mg/dL (8-23)
[2022-08-29] MEDS: sucralfate 1 gm Tablet PO (06:14)
[2022-08-29] MEDS: insulin glargine 100 units/1 mL 10 UNIT SUBCUT (06:14)
[2022-08-29] MEDS: ascorbic acid 500 mg Tablet PO (06:14)
[2022-08-29] MEDS: aspirin 81 mg EC Tablet PO (06:14)
[2022-08-29 06:42] LABS: Glucose Point of Care 214 mg/dL (70-110)
--- NOTE | 2022-08-29 07:36 | PM.PN ---
Subjective Subjective: no complaints Vitals/I&O/Wt Last Vital Signs Temp 98.1 F 08/29/22 07:10 Pulse 70 08/29/22 07:10 Resp 21 H 08/29/22 07:10 BP 126/74 08/29/22 07:10 Pulse Ox 92 08/29/22 07:10 O2 Del Method 08/29/22 04:00 O2 Flow Rate 2 08/29/22 04:00 FiO2 30 08/28/22 23:25 08/28/22 08/29/22 08/29/22 22:59 06:59 14:59 Intake Total 1000 / 1240 240 / 1480 Output Total 1205 / 1205 200 / 1405 Balance -205 / 35 40 / 75 Weight last 48 hrs Weight 77.02 kg Weight 75.614 kg Physical Exam Const: COMMON NORMALS: no acute distress and alert Resp: AUSCULTATION: wheezes Cardio: COMMON NORMALS: regular rate and regular rhythm RATE: regular rate RHYTHM: regular rhythm Extremity: NARRATIVE EXTREMITY EXAM: minimal lower extremity edema Neuro: SENSORIUM/ORIENTATION: Yes alert Urinary Catheter Management: Feng: Cath Placed During This Visit: yes Reason for Continuing Indwelling Catheter: Accurate Measurement of Urinary Output in Critically Ill Patients Urinary Catheter Date of Insertion: 08/26/22 Urinary Catheter Time of Insertion: 06:00 Data 08/29/22 04:40 08/29/22 04:40 Other Labs: albumin 3.4, Ca 7.9, phos 4.5, Mg 2.4 Other data: seen via telemedicine with assistance of RN at bedside A&P Assessment and plan (1) CKD stage 4 due to type 2 diabetes mellitus: Plan 1. Acute kidney injury, s/p contrast 2. Stage 4 CKD due to diabetic nephropathy 3. Nonischemic cardiomyopathy, volume overload. Recommend increase bumex 4. Anemia, iron replete, due to CKD, received first dose epogen yesterday. Hb lower 5. Secondary hyperparathyroidism, vitamin D deficiency, started ergocalciferol 50,000 u weekly 6. Hypokalemia, had received kayexylate for hyperkalemia. 7. GI symptoms. Rec stop sucralfate (should avoid Al products in advanced CKD) Patient is requesting holding off on dialysis. No urgent indication at this time. Has outpatient nephrology appointment scheduled in September. Attestations Medical Necessity Statement*: see above Time Spent in Patient Care: 16 - 35 minutes Coding Level of Care Code Acute Code for Chg Fwd Diagnoses CKD stage 4 due to type 2 diabetes mellitus E11.22; N18.4
[2022-08-29] MEDS: prazosin 1 mg Capsule PO ×2 (08:11→17:49)
[2022-08-29] MEDS: polyethylene glycol 3350 Pkt 17 gm PO ×2 (08:11→17:49)
[2022-08-29] MEDS: bumetanide 0.25 mg/mL SDV 4 mL 0.5 MG IVP (08:11)
[2022-08-29] MEDS: insulin lispro 100 unit/1 mL SUBCUT ×3 (08:11→17:49)
[2022-08-29] MEDS: sennosides-docusate Tablet 1 TAB PO ×2 (08:11→17:49)
[2022-08-29] MEDS: allopurinol 100 mg Tablet PO (08:11)
[2022-08-29] MEDS: hyDRALAzine 50 mg Tablet PO ×3 (08:11→23:34)
[2022-08-29] MEDS: ipratropium-albuterol 3 mL Neb INHALATION ×3 (08:21→20:06)
--- NOTE | 2022-08-29 09:03 | PM.PN ---
Subjective Subjective: Patient says he feels better. Creatinine has improved slightly but no improvement in the BUN. Vitals/I&O/Wt Last Vital Signs Temp 98.1 F 08/29/22 07:10 Pulse 80 08/29/22 08:00 Resp 16 08/29/22 08:00 BP 126/74 08/29/22 07:10 Pulse Ox 97 08/29/22 08:00 O2 Del Method 08/29/22 08:00 O2 Flow Rate 2 08/29/22 04:00 FiO2 30 08/28/22 23:25 08/28/22 08/29/22 08/29/22 22:59 06:59 14:59 Intake Total 1000 / 1240 240 / 1480 Output Total 1205 / 1205 200 / 1405 Balance -205 / 35 40 / 75 Weight last 48 hrs Weight 169 lb 12.8 oz Weight 166 lb 11.2 oz Physical Exam Narrative: GENERAL: Patient is alert, awake and oriented x3. On BIPAP [] NECK: No jugular vein distension. [] HEENT: No cyanosis. No icterus. No pallor. [] HEART: Regular S1 and S2. LUNGS: Clear to auscultate bilaterally. [] CENTRAL NERVOUS SYSTEM: Grossly nonfocal. [] EXTREMITIES: Lower extremities with 1+ edema bilaterally. Urinary Catheter Management: Feng: Cath Placed During This Visit: yes Reason for Continuing Indwelling Catheter: Accurate Measurement of Urinary Output in Critically Ill Patients Urinary Catheter Date of Insertion: 08/26/22 Urinary Catheter Time of Insertion: 06:00 Data 08/29/22 04:40 08/29/22 04:40 A&P Assessment and plan (1) CHF exacerbation: (2) COPD exacerbation: (3) NSTEMI (non-ST elevated myocardial infarction): (4) CKD stage 4 due to type 2 diabetes mellitus: (5) CAD (coronary artery disease): (6) Bilateral lower extremity edema: (7) Acute on chronic respiratory failure with hypoxia: Plan Patient's coronary anatomy is unchanged from before. No intervention needed. Medical therapy for congestive heart failure. Renal function stable. BUN still very high. Nephrology on board. Echocardiogram shows reduction in LV systolic function compared to before. Thank you for involving us with care of this patient. We will continue to follow. Please call with questions. Attestations Medical Necessity Statement*: Care expected to cross 2 midnights. Coding Level of Care Code Acute Code for Chg Fwd Diagnoses CHF exacerbation I50.9 COPD exacerbation J44.1 NSTEMI (non-ST elevated myocardial infarction) I21.4 CKD stage 4 due to type 2 diabetes mellitus E11.22; N18.4 CAD (coronary artery disease) I25.10 Bilateral lower extremity edema R60.0 Acute on chronic respiratory failure with hypoxia J96.21
[2022-08-29 11:27] LABS: Glucose Point of Care 320 mg/dL (70-110)
[2022-08-29] MEDS: isosorbide mononitrate ER 30 mg Tablet PO ×2 (12:09→23:33)
[2022-08-29] MEDS: pantoprazole DR 40 mg Tablet PO (12:09)
[2022-08-29] MEDS: metoprolol tartrate 50 mg Tablet PO ×2 (12:09→23:34)
[2022-08-29] MEDS: bisacodyl 10 mg Supp PR (13:39)
[2022-08-29 16:58] LABS: Glucose Point of Care 156 mg/dL (70-110)
[2022-08-29 17:03] LABS: Hepatitis B Surface AB 3.5 (11.5-1000); Hepatitis B Surface Antigen Non-Reactive (Nonreactive)
[2022-08-29] MEDS: atorvastatin 40 mg Tablet PO (20:23)
[2022-08-29 20:28] LABS: Glucose Point of Care 212 mg/dL (70-110)
--- NOTE | 2022-08-29 20:31 | P.PN_ITS ---
Subjective Subjective: Today he is having slight wheezing. Feels very constipated. Still no bowel movement. No success with milk of magnesia or suppository. He would like to have an enema. Medications: Reviewed: Yes Vitals/I&O/Wt Last Vital Signs Temp 97.7 F 08/29/22 19:27 Pulse 73 08/29/22 20:06 Resp 18 08/29/22 20:06 BP 135/62 08/29/22 19:27 Pulse Ox 97 08/29/22 20:06 O2 Del Method 08/29/22 20:06 O2 Flow Rate 2 08/29/22 04:00 FiO2 30 08/28/22 23:25 08/29/22 08/29/22 08/29/22 06:59 14:59 22:59 Intake Total 240 / 1480 2340 / 2340 720 / 3060 Output Total 200 / 1405 450 / 450 Balance 40 / 75 2340 / 2340 270 / 2610 Weight last 48 hrs Weight 77.02 kg Weight 75.614 kg Physical Exam Narrative: at bedside Const: COMMON NORMALS: patient oriented x3 and alert GENERAL APPEARANCE: cooperative ORIENTATION/CONSCIOUSNESS: Yes awake OTHER: Sleeping. Wakes up easily. HENMT: COMMON NORMALS: oropharynx normal Neck/C-Spine: COMMON NORMALS: no JVD Resp: COMMON NORMALS: normal respiratory effort and clear to auscultation bilaterally AUSCULTATION: clear to auscultation bilaterally and rales (Basis) Cardio: COMMON NORMALS: no JVD, regular rhythm, S1 normal heart sound present, S2 normal heart sound present and No murmurs present (Cardio) RHYTHM: regular rhythm HEART SOUNDS: S1 normal heart sound present and S2 normal heart sound present GI: COMMON NORMALS: Normal to inspection, nondistended, normoactive bowel sounds present, Soft to palpation and non-tender PALPATION: Yes Soft to palpation Extremity: COMMON NORMALS: no joint enlargement GENERAL: Yes edema (1+) Neuro: COMMON NORMALS: patient oriented x3 and moves all extremities SENSORIUM/ORIENTATION: Yes alert Skin: COMMON NORMALS: no rashes or lesions noted GENERAL SKIN EXAM: no rashes or lesions noted Urinary Catheter Management: Feng: Cath Placed During This Visit: yes Reason for Continuing Indwelling Catheter: Other Urinary Catheter Date of Insertion: 08/26/22 Urinary Catheter Time of Insertion: 06:00 Data 08/29/22 04:40 08/29/22 04:40 A&P Assessment and plan (1) Acute on chronic respiratory failure with hypoxia: Continue Bumex. He and his would like to hold off on dialysis for now. Appreciate also nephrology assessment Today he is having wheezing. Discussed with him and his risk of resuming steroid given in the with no ulcer. Continue breathing treatments. They agree and would like to see if may improve without going back to steroid. For now no antibiotic. He states whenever phlegm he has has been clear. Add sputum culture. Resume heparin for VTE prophylaxis. (2) CKD stage 4 due to type 2 diabetes mellitus: They would like to hold off on dialysis. Follow-up with nephrology after discharge. (3) CHF (congestive heart failure): Acute CHF exacerbation as above. Continue Bumex. (4) NSTEMI (non-ST elevated myocardial infarction): Status post angiogram 08/27. No new blockages noted. Consideration of nonischemic cardiomyopathy. Appreciate cardiology evaluation. Continue aspirin. Receiving gentle IV hydration (5) Bilateral lower extremity edema: (6) ORA on CPAP: (7) Anemia, chronic renal failure: (8) COPD (chronic obstructive pulmonary disease): (9) Essential hypertension: (10) Diabetes mellitus, type II: Qualifiers: Diabetes mellitus fpc insulin use: without fpc use Diabetes mellitus complication status: with hyperglycemia Qualified Code(s): E11.65 - Type 2 diabetes mellitus with hyperglycemia (11) CAD (coronary artery disease): (12) COPD exacerbation: As above (13) CHF exacerbation: (14) Hyperkalemia: Next dose is increased. Change to low potassium diet. Hold Entresto. (15) Anemia: Plan Lactic acidosis: Has been showing improvement. Suspected secondary to h ypoperfusion with CHF, hypoxic respiratory failure. Not suspected to be septic shock. Did have episode of vomiting last night. His points out he is a chronic kidney disease patient, he is concerned about anything that could injure his kidneys. For now requested only plain CT of the abdomen pelvis. Abdomen is nontender. On CT no free air noted. Duodenal ulceration, soft tissue infection involving duodenal mucosa, circumferential duodenal edema. Suspect this may have been responsible for his vomiting episode yesterday. Continue PPI. Minimal contracted gallbladder with small amount of wall thickening and edema. Ultrasound with mildly contracted gallbladder. No stones. Possible acalculous cholecystitis, but he is also nontender, and in acute CHF and suspect more likely related to congestive hepatopathy as indicated in the differential. Additionally found to have extensive calcification involving origin of SMA and celiac axis. 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 Placing him at risk of mesenteric ischemia. Abdomen remains benign. Continue to monitor for any change in symptoms. Discussed with him and his . Stable bilateral adrenal myolipoma's. Constipation: None of the measures have worked so far. He would like to receive an enema, requested milk of molasses. Chronic anemia, likely secondary CKD monitor Hyperkalemia, resolved Type 2 diabetes mellitus, low-dose sliding scale Hypertension, continue Imdur, hydralazine, metoprolol Right more than left lower extremity swelling, venous ultrasound without DVT Attestations Medical Necessity Statement*: Continue admission for optimization of CHF in the setting of MARCELO on CKD, acute bronchitis. 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
[2022-08-29] MEDS: heparin 5,000 unit/mL INJ 1 mL 5000 UNIT SUBCUT (21:30)
[2022-08-29 23:38] LABS: Hepatitis B Core AB, Total Non-Reactive (Nonreactive)
[2022-08-30] VITALS (14 sets, daily range): BP systolic 133–143; BP diastolic 53–69; PULSE 66–75; RESP 14–21; TEMP 36.4–37.1; O2SAT 92–97
[2022-08-30] MEDS: simethicone 80 mg Chew PO ×3 (01:03→17:35)
[2022-08-30 04:51] LABS: Basophils % 0.1 %; Eosinophils # 0.2 10^3/uL (0.0-0.8); Eosinophils % 1.5 %; Hemoglobin 8.2 g/dL (11.7-16.6); Lymphocytes # 1.5 10^3/uL (0.8-4.8); Lymphocytes % 11.9 %; Mean Corpuscular HGB Conc 30.4 g/dL (30.0-36.0); Mean Corpuscular Hemoglobin 30.8 pg (28.0-34.0); Mean Corpuscular Volume 101.5 fl (80-94); Mean Platelet Volume 11.3 fL (7.4-10.4); Monocytes % 7.7 %; Neutrophils # 10.06 10^3/uL (1.8-7.7); Nucleated Red Blood Cells % 0.3 %; Platelet Count 261 10^3/cmm (130-400); Red Blood Count 2.66 10^6/uL (4.1-5.3); White Blood Count 12.9 10^3/uL (4.0-10.0)
[2022-08-30 05:13] LABS: Alanine Aminotransferase 73 U/L (0-41); Albumin Level 3.5 g/dL (3.5-5.2); Alkaline Phosphatase 106 U/L (40-130); Anion Gap 18.7 (5-19); Aspartate Amino Transferase 27 U/L (0-40); Calcium 8.7 mg/dL (8.5-10.5); Carbon Dioxide 27 mmol/L (22-29); Chloride 96 mmol/L (98-107); Globulin 3.2 g/dL (1.3-4.6); Glomerular Filtration Rate 22.6 mL/min (90-130); Glucose 213 mg/dL (65-115); Osmolality Calculated 326 mOsm/kg (285-295); Potassium 3.7 mmol/L (3.5-5.1); Sodium 138 mmol/L (136-145); Total Bilirubin 0.4 mg/dL (0.15-1.2); Total Protein 6.7 g/dL (6.6-8.7)
[2022-08-30] MEDS: ascorbic acid 500 mg Tablet PO (05:17)
[2022-08-30] MEDS: aspirin 81 mg EC Tablet PO (05:17)
[2022-08-30] MEDS: insulin glargine 100 units/1 mL 10 UNIT SUBCUT (05:18)
[2022-08-30 05:29] LABS: Blood Urea Nitrogen 106 mg/dL (8-23)
[2022-08-30 05:33] LABS: H. Pylori IgG Antibody Negative (Negative)
[2022-08-30 05:34] LABS: Glucose Point of Care 227 mg/dL (70-110)
--- NOTE | 2022-08-30 07:33 | P.PN_ITS ---
Subjective Subjective: Patient is stable. No significant improvement in BUN. He is making urine and wants to hold off on dialysis for now. Able to lay down flat. Vitals/I&O/Wt Last Vital Signs Temp 98.7 F 08/30/22 04:00 Pulse 68 08/30/22 07:30 Resp 16 08/30/22 07:30 BP 133/61 08/30/22 04:00 Pulse Ox 93 08/30/22 07:30 O2 Del Method 08/30/22 07:30 O2 Flow Rate 2 08/29/22 04:00 FiO2 30 08/29/22 22:22 08/29/22 08/30/22 08/30/22 22:59 06:59 14:59 Intake Total 720 / 3060 Output Total 450 / 450 300 / 750 Balance 270 / 2610 -300 / 2310 Weight last 48 hrs Weight 168 lb 11.2 oz Weight 169 lb 12.8 oz Weight 166 lb 11.2 oz Physical Exam Narrative: GENERAL: Patient is alert, awake and oriented x3. On BIPAP [] NECK: No jugular vein distension. [] HEENT: No cyanosis. No icterus. No pallor. [] HEART: Regular S1 and S2. LUNGS: Clear to auscultate bilaterally. [] CENTRAL NERVOUS SYSTEM: Grossly nonfocal. [] EXTREMITIES: Lower extremities with 1+ edema bilaterally. Urinary Catheter Management: Feng: Cath Placed During This Visit: yes Reason for Continuing Indwelling Catheter: Other Urinary Catheter Date of Insertion: 08/26/22 Urinary Catheter Time of Insertion: 06:00 Data 08/30/22 04:15 08/30/22 04:15 A&P Assessment and plan (1) CHF exacerbation: (2) COPD exacerbation: (3) NSTEMI (non-ST elevated myocardial infarction): (4) CKD stage 4 due to type 2 diabetes mellitus: (5) CAD (coronary artery disease): (6) Bilateral lower extremity edema: (7) Acute on chronic respiratory failure with hypoxia: Plan Continue current medications. He wants to hold off on dialysis. Nephrology following. Appreciate recs. Thank you for involving us with care of this patient. We will continue to follow. Please call with questions. Attestations Medical Necessity Statement*: Care expected to cross 2 midnights. Coding Level of Care Code Acute Code for [facility] Fwd Diagnoses CHF exacerbation I50.9 COPD exacerbation J44.1 NSTEMI (non-ST elevated myocardial infarction) I21.4 CKD stage 4 due to type 2 diabetes mellitus E11.22; N18.4 CAD (coronary artery disease) I25.10 Bilateral lower extremity edema R60.0 Acute on chronic respiratory failure with hypoxia J96.21
[2022-08-30] MEDS: polyethylene glycol 3350 Pkt 17 gm PO (07:59)
[2022-08-30] MEDS: insulin lispro 100 unit/1 mL SUBCUT ×3 (08:00→17:29)
[2022-08-30] MEDS: bumetanide 0.25 mg/mL SDV 4 mL 0.5 MG IVP (08:02)
[2022-08-30] MEDS: prazosin 1 mg Capsule PO ×2 (08:02→17:30)
[2022-08-30] MEDS: heparin 5,000 unit/mL INJ 1 mL 5000 UNIT SUBCUT (08:03)
[2022-08-30] MEDS: hyDRALAzine 50 mg Tablet PO ×3 (08:03→23:51)
[2022-08-30] MEDS: sennosides-docusate Tablet 1 TAB PO (08:03)
[2022-08-30] MEDS: allopurinol 100 mg Tablet PO (08:03)
--- NOTE | 2022-08-30 10:12 | PM.PN ---
Subjective Subjective: no complaints. Laying flat, no dyspnea Vitals/I&O/Wt Last Vital Signs Temp 98.0 F 08/30/22 07:58 Pulse 73 08/30/22 07:58 Resp 14 08/30/22 07:58 BP 136/66 08/30/22 07:58 Pulse Ox 92 08/30/22 07:58 O2 Del Method 08/30/22 07:58 O2 Flow Rate 2 08/29/22 04:00 FiO2 30 08/29/22 22:22 08/29/22 08/30/22 08/30/22 22:59 06:59 14:59 Intake Total 720 / 3060 480 / 480 Output Total 450 / 450 300 / 750 Balance 270 / 2610 -300 / 2310 480 / 480 Weight last 48 hrs Weight 76.521 kg Weight 77.02 kg Weight 75.614 kg Physical Exam Const: COMMON NORMALS: no acute distress and alert Neuro: SENSORIUM/ORIENTATION: Yes alert Urinary Catheter Management: Finch: Cath Placed During This Visit: yes Reason for Continuing Indwelling Catheter: Other Urinary Catheter Date of Insertion: 08/26/22 Urinary Catheter Time of Insertion: 06:00 Data 08/30/22 04:15 08/30/22 04:15 Other data: seen via telemedicine with assistance of RN at bedside A&P Assessment and plan (1) CKD stage 4 due to type 2 diabetes mellitus: Plan 1. Acute kidney injury, s/p contrast 2. Stage 4 CKD due to diabetic nephropathy 3. Nonischemic cardiomyopathy, volume overload. I/O positive. Recommend increase bumex. Fluid restrict 4. Anemia, iron replete, due to CKD, received first dose epogen 08/28/22. 5. Secondary hyperparathyroidism, vitamin D deficiency, started ergocalciferol 50,000 u weekly Consider removing finch and voiding trial. Patient is requesting holding off on dialysis. No urgent indication at this time. Has outpatient nephrology appointment scheduled in September. Attestations Medical Necessity Statement*: see above Time Spent in Patient Care: 16 - 35 minutes Coding Level of Care Code Acute Code for Chg Fwd Diagnoses CKD stage 4 due to type 2 diabetes mellitus E11.22; N18.4
--- NOTE | 2022-08-30 11:11 | PC.SOCIAL ---
IMM Update pg 2 of IMM updated and reviewed w/ patient. Copy provided and copy in chart dated, and initialed.
[2022-08-30] MEDS: ipratropium-albuterol 3 mL Neb INHALATION ×3 (11:31→19:50)
[2022-08-30 11:42] LABS: Glucose Point of Care 275 mg/dL (70-110)
[2022-08-30] MEDS: bumetanide 0.25 mg/mL SDV 4 mL 1 MG IVP ×2 (12:18→21:40)
[2022-08-30] MEDS: pantoprazole DR 40 mg Tablet PO (12:19)
[2022-08-30] MEDS: isosorbide mononitrate ER 30 mg Tablet PO ×2 (12:19→23:51)
[2022-08-30] MEDS: metoprolol tartrate 50 mg Tablet PO ×2 (12:19→23:51)
[2022-08-30 17:15] LABS: Glucose Point of Care 217 mg/dL (70-110)
--- NOTE | 2022-08-30 19:41 | PM.PN ---
Subjective Subjective: He states he is doing okay. He had a bowel movement for several bowel movements now. As per his he is taking a nap but promised that he will ambulate afterward. They state they are not sure that they had declined initiation of hemodialysis during this hospitalization, but discussing with them they state would not want to start dialysis unless it was absolutely necessary at this time. Discussed with them dialysis is not urgently needed at this time, and as nephrology indicated they may follow-up with his patcher in office for reassessment and further consideration of timing of initiation. Discussed with him, her, regarding elevation of BUN and in presence of ulceration possibility of slow GI bleeding and need to reassess hemoglobin. Medications: Reviewed: Yes Medication Review Details: Current Medications Acetaminophen (Acetaminophen 325 Mg Tablet) 650 mg PO Q6H PRN PRN Reason: Mild/Mod Pain Or Temp >/= 101 Albuterol/Ipratropium (Ipratropium-Albuterol 3 Ml Neb) 3 ml INHALATION QID.RESPIRATORY [facility] Last Admin: 08/26/22 21:06 Dose: 3 ml Ascorbic Acid (Ascorbic Acid 500 Mg Tablet) 500 mg PO QAM [facility] Last Admin: 08/27/22 06:05 Dose: 500 mg Aspirin (Aspirin 81 Mg Ec Tablet) 81 mg PO QAM [facility] Last Admin: 08/27/22 06:05 Dose: 81 mg Atorvastatin Calcium (Atorvastatin 40 Mg Tablet) 40 mg PO BEDTIME [facility] Last Admin: 08/26/22 21:19 Dose: 40 mg Bumetanide (Bumetanide 0.25 Mg/Ml Sdv 4 Ml) 2 mg IVP Q12H [facility] Last Admin: 08/26/22 06:35 Dose: 2 mg Dextrose (Dextrose 50% Syringe 50 Ml) 25 ml IVP ONCE PRN; Protocol PRN Reason: hypoglycemia protocol Dextrose (Dextrose 50% Syringe 50 Ml) 50 ml IVP PRN PRN; Protocol PRN Reason: hypoglycemia protocol Ferrous Sulfate (Ferrous Sulfate Ec 325 Mg Tablet) 325 mg PO BIDWM [facility] Last Admin: 08/26/22 17:21 Dose: 325 mg Glucagon (Glucagon 1 Mg/Ml Inj 1 Ml) 1 mg IM ONCE PRN; Protocol PRN Reason: Adult Acute Hypoglycemia Prot. Heparin Sodium (Porcine) (Heparin 5,000 Unit/Ml Inj 1 Ml) 0 unit IV PRN PRN; Protocol PRN Reason: Heparin weight-base protocol Hydralazine HCl (Hydralazine 50 Mg Tablet) 50 mg PO Q8H [facility] Last Admin: 08/27/22 01:08 Dose: 50 mg Dextrose (D5w) 500 mls @ 100 mls/hr IV ONCE PRN; Protocol PRN Reason: Adult Acute Hypoglycemia Prot Heparin Sodium/Sodium Chloride (Heparin Drip) 25,000 unit in 500 mls @ 0 mls/hr IV .Q0M [facility]; Protocol Last Admin: 08/26/22 09:38 Dose: 14.04 unit/kg/hr, 20 mls/hr Insulin Glargine (Insulin Glargine 100 Units/1 Ml) 10 unit SUBCUT QAM [facility] Last Admin: 08/26/22 07:10 Dose: 10 unit Insulin Human Lispro (Insulin Lispro 100 Unit/1 Ml) 0 unit SUBCUT TIDWM [facility]; Protocol Last Admin: 08/26/22 17:21 Dose: 1 unit Isosorbide Mononitrate (Isosorbide Mononitrate Er 30 Mg Tablet) 30 mg PO Q12H [facility] Last Admin: 08/27/22 01:09 Dose: 30 mg Metoprolol Tartrate (Metoprolol Tartrate 50 Mg Tablet) 50 mg PO Q12H [facility] Last Admin: 08/27/22 01:08 Dose: 50 mg Morphine Sulfate (Morphine 4 Mg/Ml Sdv 1 Ml) 1 mg IVP Q4H PRN PRN Reason: PAIN Last Admin: 08/25/22 02:24 Dose: 1 mg Nitroglycerin (Nitroglycerin 0.4 Mg Sublingual Tablet) 0.4 mg SUBLINGUAL Q5M PRN PRN Reason: CHEST PAIN Last Admin: 08/24/22 21:28 Dose: 0.4 mg Nitroglycerin (Nitroglycerin 0.4 Mg Sublingual Tablet) 0.4 mg SUBLINGUAL Q5M PRN PRN Reason: chest pain Last Admin: 08/27/22 06:34 Dose: 0.4 mg Non-Formulary Medication (Simethicone [Gas Relief (Simethicone)]) 250 mg PO QID PRN PRN Reason: Abdominal Discomfort Ondansetron HCl (Ondansetron 2 Mg/Ml Sdv 2 Ml) 4 mg IVP Q8H PRN PRN Reason: vomiting, or N/V if npo Last Admin: 08/26/22 09:36 Dose: 4 mg Pantoprazole Sodium (Pantoprazole Dr 40 Mg Tablet) 40 mg PO DAILY@12 [facility] Last Admin: 08/26/22 13:03 Dose: 40 mg Prazosin HCl (Prazosin 1 Mg Capsule) 1 mg PO BID [facility] Last Admin: 08/26/22 17:57 Dose: 1 mg Sodium Polystyrene Sulfonate (Sodium Polystyrene Sulfonate 15 Gm/60 Ml Btl) 15 gm PO Q12H [facility] Last Admin: 08/27/22 03:31 Dose: 15 gm Sucralfate (Sucralfate 1 Gm Tablet) 1 gm PO AC&BEDTIME [facility] Last Admin: 08/27/22 06:05 Dose: 1 gm Vitals/I&O/Wt Last Vital Signs Temp 97.6 F 08/30/22 16:00 Pulse 66 08/30/22 16:00 Resp 14 08/30/22 16:00 BP 137/69 08/30/22 16:00 Pulse Ox 97 08/30/22 16:00 O2 Del Method 08/30/22 16:00 O2 Flow Rate 2 08/29/22 04:00 FiO2 30 08/30/22 08:00 08/30/22 08/30/22 08/30/22 06:59 14:59 22:59 Intake Total 720 / 720 480 / 1200 Output Total 300 / 750 800 / 800 900 / 1700 Balance -300 / 2310 -80 / -80 -420 / -500 Weight last 48 hrs Weight 76.521 kg Weight 77.02 kg Physical Exam Narrative: at bedside Const: COMMON NORMALS: patient oriented x3 and alert GENERAL APPEARANCE: cooperative ORIENTATION/CONSCIOUSNESS: Yes awake OTHER: Sleeping. Wakes up easily. HENMT: COMMON NORMALS: oropharynx normal Neck/C-Spine: COMMON NORMALS: no JVD Resp: COMMON NORMALS: normal respiratory effort and clear to auscultation bilaterally AUSCULTATION: clear to auscultation bilaterally and diminished lung sounds Cardio: COMMON NORMALS: no JVD, regular rhythm, S1 normal heart sound present, S2 normal heart sound present and No murmurs present (Cardio) RHYTHM: regular rhythm HEART SOUNDS: S1 normal heart sound present and S2 normal heart sound present GI: COMMON NORMALS: Normal to inspection, nondistended, normoactive bowel sounds present, Soft to palpation and non-tender PALPATION: Yes Soft to palpation Extremity: COMMON NORMALS: no joint enlargement GENERAL: Yes edema (2+ BLLE) Neuro: COMMON NORMALS: patient oriented x3 and moves all extremities SENSORIUM/ORIENTATION: Yes alert Skin: COMMON NORMALS: no rashes or lesions noted GENERAL SKIN EXAM: no rashes or lesions noted Urinary Catheter Management: Feng: Cath Placed During This Visit: yes Reason for Continuing Indwelling Catheter: Accurate Measurement of Urinary Output in Critically Ill Patients Urinary Catheter Date of Insertion: 08/26/22 Urinary Catheter Time of Insertion: 06:00 Data 08/30/22 04:15 08/30/22 04:15 A&P Assessment and plan (1) Duodenal ulcer: Appears to have gradually rising BUN although creatinine has come down. Discussed with him at least in part this may be due to renal dysfunction, possibly cardiorenal syndrome as well, however, he otherwise is not hypotensive. Discussed with him additional consideration of possible slow GI bleeding. His hemoglobin is not decreasing rapidly and he does not appear to have signs of hypovolemia, however, hemoglobin has come down somewhat compared to admission. Currently continue PPI twice daily. Check Hemoccult. Did request for H. pylori studies. Reassess blood counts for any worsening anemia, if significantly worsening may end up needing endoscopic evaluation sooner rather than later. Hold off heparin. SCD for DVT prophylaxis. (2) Acute on chronic respiratory failure with hypoxia: Appreciate nephrology assessment, Bumex dose increased. He does still have significant peripheral edema, although oxygenation has improved at least at rest. He has not gotten up and around very much. He is going to do so today so that we can get a better idea on his functional capacity. He and his would like to hold off on dialysis for now unless becomes absolutely necessary then they want to pursue it. They do understand that he will eventually need dialysis. Appreciate also nephrology assessment Bronchitis/wheezing appears to be slightly better. Avoid steroid due to duodenal ulcer. Continue breathing treatments. They agree and would like to see if may improve without going back to steroid. For now not on antibiotic. He states whenever phlegm he has has been clear. Requested sputum culture. (3) CKD stage 4 due to type 2 diabetes mellitus: They would like to hold off on dialysis. Follow-up with nephrology after discharge. (4) CHF (congestive heart failure): Acute CHF exacerbation as above. Continue Bumex. (5) NSTEMI (non-ST elevated myocardial infarction): Status post angiogram 08/27. No new blockages noted. Consideration of nonischemic cardiomyopathy. Appreciate cardiology evaluation. Continue aspirin. Receiving gentle IV hydration (6) Bilateral lower extremity edema: (7) ORA on CPAP: (8) Anemia, chronic renal failure: (9) COPD (chronic obstructive pulmonary disease): (10) Essential hypertension: (11) Diabetes mellitus, type II: Qualifiers: Diabetes mellitus senior care insulin use: without long term care administrator use Diabetes mellitus complication status: with hyperglycemia Qualified Code(s): E11.65 - Type 2 diabetes mellitus with hyperglycemia (12) CAD (coronary artery disease): (13) COPD exacerbation: As above (14) CHF exacerbation: (15) Hyperkalemia: Next dose is increased. Change to low potassium diet. Hold Entresto. (16) Anemia: Plan Lactic acidosis: Has been showing improvement. Suspected secondary to hypoperfusion with CHF, hypoxic respiratory failure. Not suspected to be septic shock. Did have episode of vomiting last night. His points out he is a chronic kidney disease patient, he is concerned about anything that could injure his kidneys. For now requested only plain CT of the abdomen pelvis. Abdomen is nontender. On CT no free air noted. Duodenal ulceration, soft tissue infection involving duodenal mucosa, circumferential duodenal edema. Suspect this may have been responsible for his vomiting episode yesterday. Continue PPI. Minimal contracted gallbladder with small amount of wall thickening and edema. Ultrasound with mildly contracted gallbladder. No stones. Possible acalculous cholecystitis, but he is also nontender, and in acute CHF and suspect more likely related to congestive hepatopathy as indicated in the differential. Additionally found to have extensive calcification involving origin of SMA and celiac axis. 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 Placing him at risk of mesenteric ischemia. Abdomen remains benign. Continue to monitor for any change in symptoms. Discussed with him and his . Stable bilateral adrenal myolipoma's. Constipation: Now better. Has had multiple bowel movements. De-escalate bowel regimen and continue. Chronic anemia, likely secondary CKD monitor Hyperkalemia, resolved Type 2 diabetes mellitus, low-dose sliding scale Hypertension, continue Imdur, hydralazine, metoprolol Right more than left lower extremity swelling, venous ultrasound without DVT Attestations Medical Necessity Statement*: Continue admission for assessment of management of acute CHF, in setting of advanced CKD, assessment small GI bleed. Post discharge plan Coding Level of Care Code Acute Code for Chg Fwd Diagnoses Duodenal ulcer K26.9 Acute on chronic respiratory failure with hypoxia J96.21 CKD stage 4 due to type 2 diabetes mellitus E11.22; N18.4 CHF (congestive heart failure) I50.9 NSTEMI (non-ST elevated myocardial infarction) I21.4 Bilateral lower extremity edema R60.0 ORA on CPAP G47.33; Z99.89 Anemia, chronic renal failure N18.9; D63.1 COPD (chronic obstructive pulmonary disease) J44.9 Essential hypertension I10 Diabetes mellitus, type II E11.65 Diabetes mellitus senior care insulin use: without long term care administrator use Diabetes mellitus complication status: with hyperglycemia CAD (coronary artery disease) I25.10 COPD exacerbation J44.1 CHF exacerbation I50.9 Hyperkalemia E87.5 Anemia D64.9
[2022-08-30] MEDS: atorvastatin 40 mg Tablet PO (20:28)
[2022-08-30 20:56] LABS: Glucose Point of Care 230 mg/dL (70-110)
[2022-08-31 02:28] LABS: Basophils % 0.1 %; Eosinophils # 0.3 10^3/uL (0.0-0.8); Eosinophils % 2.2 %; Hematocrit 25.7 % (42.0-52.0); Hemoglobin 7.9 g/dL (11.7-16.6); Lymphocytes # 1.7 10^3/uL (0.8-4.8); Lymphocytes % 14.2 %; Mean Corpuscular HGB Conc 30.7 g/dL (30.0-36.0); Mean Corpuscular Hemoglobin 30.7 pg (28.0-34.0); Monocytes # 0.8 10^3/uL (0.2-0.9); Monocytes % 6.7 %; Neutrophils % 75.9 %; Nucleated Red Blood Cells % 0.3 %; Platelet Count 264 10^3/cmm (130-400); Red Blood Count 2.57 10^6/uL (4.1-5.3); Red Cell Distribution Width 13.9 % (12.1-15.1); White Blood Count 11.7 10^3/uL (4.0-10.0)
[2022-08-31 02:55] LABS: Alanine Aminotransferase 62 U/L (0-41); Albumin Level 3.5 g/dL (3.5-5.2); Alkaline Phosphatase 112 U/L (40-130); Anion Gap 17.1 (5-19); Aspartate Amino Transferase 20 U/L (0-40); Calcium 8.4 mg/dL (8.5-10.5); Carbon Dioxide 28 mmol/L (22-29); Chloride 95 mmol/L (98-107); Globulin 2.5 g/dL (1.3-4.6); Glomerular Filtration Rate 25.8 mL/min (90-130); Glucose 204 mg/dL (65-115); Osmolality Calculated 319 mOsm/kg (285-295); Potassium 3.1 mmol/L (3.5-5.1); Sodium 137 mmol/L (136-145); Total Bilirubin 0.3 mg/dL (0.15-1.2)
[2022-08-31 03:30] LABS: Blood Urea Nitrogen 93 mg/dL (8-23)
[2022-08-31 04:00] VITALS: BP 109/53; PULSE 63; RESP 19; TEMP 36.8; O2SAT 96
[2022-08-31] MEDS: aspirin 81 mg EC Tablet PO (05:04)
[2022-08-31] MEDS: ascorbic acid 500 mg Tablet PO (05:04)
[2022-08-31] MEDS: simethicone 80 mg Chew PO (05:04)
[2022-08-31 05:20] VITALS: PULSE 62
--- NOTE | 2022-08-31 06:02 | PM.PN ---
Subjective Subjective: feels well. states he has ambulated without issue, finch out, voiding well expecting to be discharged home today Vitals/I&O/Wt Last Vital Signs Temp 98.2 F 08/31/22 04:00 Pulse 62 08/31/22 05:20 Resp 19 H 08/31/22 04:00 BP 109/53 08/31/22 04:00 Pulse Ox 96 08/31/22 04:00 O2 Del Method 08/31/22 04:00 O2 Flow Rate 2 08/30/22 23:44 FiO2 30 08/30/22 21:00 08/30/22 08/30/22 08/31/22 14:59 22:59 06:59 Intake Total 720 / 720 680 / 1400 Output Total 800 / 800 1400 / 2200 500 / 2700 Balance -80 / -80 -720 / -800 -500 / -1300 Weight last 48 hrs Weight 74.344 kg Weight 76.521 kg Physical Exam Urinary Catheter Management: Finch: Cath Placed During This Visit: yes Reason for Continuing Indwelling Catheter: Accurate Measurement of Urinary Output in Critically Ill Patients Urinary Catheter Date of Insertion: 08/26/22 Urinary Catheter Time of Insertion: 06:00 Data 08/31/22 02:10 08/31/22 02:10 Micro: Microbiology 08/30/22 22:00 Occult Blood (FIT) - Final Stool Other data: seen via telemedicine with assistance of RN at bedside A&P Assessment and plan (1) CKD stage 4 due to type 2 diabetes mellitus: Plan 1. Acute kidney injury, s/p contrast, improved, good urine output 2. Stage 4 CKD due to diabetic nephropathy 3. Nonischemic cardiomyopathy, volume overload. Diuresing on increased dose bumex. Fluid restrict. BP lower this AM. May need to hold prazosin 4. Anemia, iron replete, due to CKD, received first dose epogen 08/28/22. 5. Secondary hyperparathyroidism, vitamin D deficiency, started ergocalciferol 50,000 u weekly 6. Hypokalemia, replace po Has outpatient nephrology appointment scheduled September 22. He understands he needs ongoing treatment for anemia, hyperparathyroidism and more education to prepare for ESRD, including placement of AVF if hemodialysis is being considered. Attestations Medical Necessity Statement*: per primary service Time Spent in Patient Care: 16 - 35 minutes Coding Level of Care Code Acute Code for Chg Fwd Diagnoses CKD stage 4 due to type 2 diabetes mellitus E11.22; N18.4
[2022-08-31] MEDS: potassium chloride ER 20 mEq Tablet 40 MEQ PO (06:16)
[2022-08-31] MEDS: insulin glargine 100 units/1 mL 10 UNIT SUBCUT (06:19)
[2022-08-31 06:27] LABS: Glucose Point of Care 249 mg/dL (70-110)
[2022-08-31 07:08] VITALS: BP 157/57; PULSE 68; RESP 20; TEMP 36.4; O2SAT 97
--- NOTE | 2022-08-31 08:04 | PM.DCS ---
Discharge Providers Date of Admission: 08/25/22 00:23 Date of Discharge: August 31, 2022 Attending Provider at Admission: Dean Danielle MD Attending Provider at Discharge: Dean Danielle MD Primary Care Provider: Donavan Clemons MD Diagnoses at Discharge Discharge Diagnosis (1) CKD stage 4 due to type 2 diabetes mellitus: Status: Acute Reason for Visit Reason for Visit: SOB, CP Hospital Course Hospital Course Luis Alfredo Thompson is a 67 year old male with a past medical history of CAD, history of CABG, history of stenting in 2020, history of stenting, history of NSTEMI, history of CKD, history of noninsulin-dependent type 2 diabetes mellitus, CKD stage IV, COPD, history of anemia, history of ischemic cardiomyopathy, history of ORA on CPAP, hyperlipidemia who presents [facility] for shortness of breath, lower extremity edema, orthopnea.? Patient was admitted to [facility] for acute on chronic respiratory failure with hypoxia secondary to CHF exacerbation, likely combination of systolic and diastolic, received inpatient diuresis, did develop elevated creatinine, however required persistent diuresis due to shortness of breath. Patient will be discharged on Bumex 1 mg every 12 hours with potassium replacement therapy, creatinine on discharge, is 2.5. Please follow-up with primary care provider recheck blood work on Wednesday. Patient was found to have NSTEMI during his hospitalization, underwent coronary angiogram, no new blockages, follow-up with cardiology as outpatient. Patient had MARCELO on CKD, CKD stage IV, during his hospitalization developed MARCELO, nephrology was consulted, likely combination of diuresis, contrast, maintain good urine output, creatinine on discharge is 2.5. Patient declined dialysis during his hospitalization, he is to follow-up with his outpatient linen room attendant on discharge Patient had acute on chronic anemia during his hospitalization, likely some component related to MARCELO on CKD. However he has a history of iron deficiency anemia, Hemoccult positive stools, with elevated BUN, highly suspicious for a slow GI bleed. CT scan showed duodenal ulceration, soft tissue ulceration involving the duodenal mucosa, circumferential duodenal edema. He was monitored with Protonix, overall no bloody or black stools, no hemodynamic compromise, hemoglobin has been stable. His Hemoccult stool was positive for blood. Follow-up with primary care provider on Wednesday or so recheck CBC CBC on discharge hemoglobin 7.9. I have discharged him on Protonix, Carafate. Follow-up with general surgery in 1 month for consideration of EGD and colonoscopy. Patient was advised if he were to have any bloody or black stools go to the emergency room. Patient was found to have lactic acidosis during his hospitalization, likely hyper perfusion from CHF, hypoxic respiratory failure, marcelo, no focal findings of infection. For his type 2 diabetes mellitus, as his GFR has decreased to 25, glimepiride, and metformin have been stopped. He has been discharged on NovoLog sliding scale, in addition to Lantus 10 units every 24 hours. - Please take Bumex 1 mg every 12 hours with potassium, see your primary care provider on Wednesday for recheck blood work, check kidney function -Please follow-up with your primary care provider in 1 week -Please follow-up with your linen room attendant in 1 week -For your type 2 diabetes mellitus I discharged you on Lantus 10 units every 24 hours -I have discharged you on insulin sliding scale as below, NovoLog -Insulin sliding fingerstick? Insulin 141-180?2 units/sq 181-220?4 units/sq 221-260?6 units/sq 261-300?8 units/sq 301-350 10 units/sq 351-400 12 units/sq > 400? 14 units/sq ? -Please monitor your blood sugars closely -Monitor your blood sugars 3 times daily as after meals -Please record your blood sugars, and a blood sugar log -For your NovoLog -Please inject blood sugar after meals based on sliding scale provided -Do not inject insulin if you do not eat as hypoglycemia kills -This is a NovoLog sliding scale -Insulin sliding ?fingerstick? Insulin ?141-180?2 units/sq 181-220?4 units/sq ?221-260?6 units/sq ?261-300?8 units/sq ?301-350 10 units/sq ?351-400 12 units/sq > 400? 14 units/sq -If your blood sugar is greater than 500 go to the emergency room -If your blood sugar is less than 60 or at anytime you feel lightheaded or dizzy or diaphoretic or have chest palpitations check your blood sugar, and eat a hard candy or drink orange juice and go immediately to the emergency room -Remember hypoglycemia kills, so if his blood sugar is less than 60 we have to increase it by taking in a sugary meal such as a hard candy or orange juice and go to the emergency room -If you have any questions please call us where here to help -Please stop taking glimepiride, please stopping metformin due to your kidney function -For your hyperuricemia, please take allopurinol -For your anemia, please take Protonix, Carafate as prescribed, follow-up with general surgery in 1 month for consideration of EGD and colonoscopy, if you have bloody or black stools please go to the emergency room Physical Exam Const: COMMON NORMALS: no acute distress and patient oriented x3 Resp: COMMON NORMALS: normal respiratory effort, No retractions, No use of accessory muscles and clear to auscultation bilaterally AUSCULTATION: clear to auscultation bilaterally Cardio: COMMON NORMALS: regular rate, regular rhythm, S1 normal heart sound present and S2 normal heart sound present RATE: regular rate RHYTHM: regular rhythm HEART SOUNDS: S1 normal heart sound present and S2 normal heart sound present GI: COMMON NORMALS: Normal to inspection, nondistended, normoactive bowel sounds present and non-tender Extremity: COMMON NORMALS: no pedal edema Neuro: COMMON NORMALS: patient oriented x3 Psych: COMMON NORMALS: mental status grossly normal Urinary Catheter Management: Feng: Cath Placed During This Visit: yes, but has since been removed by the nurse Reason for Continuing Indwelling Catheter: Accurate Measurement of Urinary Output in Critically Ill Patients Urinary Catheter Date of Insertion: 08/26/22 Urinary Catheter Time of Insertion: 06:00 Date Urinary Catheter Removed: 08/31/22 Time Urinary Catheter Discontinued: 06:26 Discharge Data Studies Completed and Pending Completed Studies During Hospitalization Category Date Time Status CT abdomen pelvis wo con [id number] Routine Cat Scan 08/25/22 12:38 Completed CXRP [XR chest 1V portable [id number]] Routine Exams 08/27/22 15:07 Completed XR chest 1V portable [id number] Stat Exams 08/24/22 20:52 [place] [id number] Stat Ultrasound 08/25/22 00:00 Completed CV. echo complete* [id number] Stat Ultrasound 08/25/22 00:00 Completed US gall bladder [id number] Routine Ultrasound 08/25/22 20:39 Completed Pending at discharge Category Date Time Status ROOM SERVICE SERVER request for service Routine Exams 08/27/22 09:30 Taken GLENDY Screen w/ Reflex Routine Lab 08/26/22 21:01 Received Anti-Neutrophil Cytoplasmic AB Routine Lab 08/26/22 21:01 Received Complete Blood Count w/Auto AM LABS Lab 09/01/22 04:00 Ordered Comprehensive Metabolic Panel AM LABS Lab 09/01/22 04:00 Ordered Helicobacter Pylori AG Stool Routine Lab 08/30/22 02:51 Received Sputum Culture and Gram Stain Routine Lab 08/25/22 20:42 Uncollected Vitamin D 1,25 Dihydroxy Routine Lab 08/26/22 21:01 Received Radiology Impressions Abdomen/Pelvis CT 08/25/22 12:38 IMPRESSION: 1. No free air or ascites. 2. Duodenal ulceration. Soft tissue ulceration involving duodenal mucosa. Circumferential duodenal edema. 3. Minimal contracted gallbladder with a small amount of wall thickening and edema. Consider RIGHT upper quadrant ultrasound to evaluate for acute cholecystitis. Edema may be on the basis of hepatocellular disease or duodenal inflammation. 4. Stable bilateral adrenal myelolipomas. 5. Additional extensive calcification involving the origin of the SMA and celiac axis. 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 Placing the patient at increased risk for mesenteric ischemia. Gallbladder Ultrasound 08/25/22 20:39 IMPRESSION: 1. Mildly contracted gallbladder with wall thickening and edema. No stones are identified. Consider acalculous cholecystitis. These findings also may be associated with hepatocellular disease and ascites. 2. Small amount of ascites and small RIGHT pleural effusion. 3. Mild coarsened echotexture throughout the liver is probably due to cirrhosis or hepatic steatosis. 4. No bile duct dilatation. Chest X-Ray 08/27/22 15:07 IMPRESSION: Interval improvement in CHF from previous exam. Postsurgical changes of CABG and [id number] cardiomegaly, with possible minimal or trace effusion at the right costophrenic angle. Laboratory Results WBC 11.7 10^3/uL (4.0-10.0) H 08/31/22 02:10 RBC 2.57 10^6/uL (4.1-5.3) L 08/31/22 02:10 Hgb 7.9 g/dL (11.7-16.6) L 08/31/22 02:10 Hct 25.7 % (42.0-52.0) L 08/31/22 02:10 MCV 100.0 fl (80-94) H 08/31/22 02:10 MCH 30.7 pg (28.0-34.0) 08/31/22 02:10 MCHC 30.7 g/dL (30.0-36.0) 08/31/22 02:10 RDW 13.9 % (12.1-15.1) 08/31/22 02:10 Plt Count 264 10^3/cmm (130-400) 08/31/22 02:10 MPV 11.0 fL (7.4-10.4) H 08/31/22 02:10 Neut % (Auto) 75.9 % 08/31/22 02:10 Lymph % (Auto) 14.2 % 08/31/22 02:10 Wharton % (Auto) 6.7 % 08/31/22 02:10 Eos % (Auto) 2.2 % 08/31/22 02:10 Baso % (Auto) 0.1 % 08/31/22 02:10 Neut # (Auto) 8.90 10^3/uL (1.8-7.7) H 08/31/22 02:10 Lymph # (Auto) 1.7 10^3/uL (0.8-4.8) 08/31/22 02:10 [place]arton # (Auto) 0.8 10^3/uL (0.2-0.9) 08/31/22 02:10 Eos # (Auto) 0.3 10^3/uL (0.0-0.8) 08/31/22 02:10 Baso # (Auto) 0.0 10^3/uL (0.0-0.1) 08/31/22 02:10 Nucleated RBC % (auto) 0.3 % 08/31/22 02:10 Nucleated RBCs # 0.0 /100WBC 08/31/22 02:10 APTT 66.7 SECONDS (23.9-36.7) H 08/27/22 03:35 Sodium 137 mmol/L (136-145) 08/31/22 02:10 Potassium 3.1 mmol/L (3.5-5.1) L 08/31/22 02:10 Chloride 95 mmol/L (98-107) L 08/31/22 02:10 Carbon Dioxide 28 mmol/L (22-29) 08/31/22 02:10 Anion Gap 17.1 (5-19) 08/31/22 02:10 BUN 93 mg/dL (8-23) H* 08/31/22 02:10 Creatinine 2.5 mg/dL (0.7-1.2) H 08/31/22 02:10 GFR Calculation 25.8 mL/min (90-130) L 08/31/22 02:10 Glucose 204 mg/dL (65-115) H 08/31/22 02:10 POC Glucose 249 mg/dL (70-110) H 08/31/22 06:18 Estimat Average Glucose 137 08/24/22 20:49 Hemoglobin A1c 6.4 % (4.0-6.0) H 08/24/22 20:49 Calculated Osmolality 319 mOsm/kg (285-295) H 08/31/22 02:10 Lactic Acid 6.2 mmol/L (0.5-2.2) H* 08/25/22 01:25 Lactic Acid (Sepsis) 5.3 mmol/L (0.5-2.2) H* 08/25/22 04:43 Lactate 3.5 mmol/L (0.5-2.2) H 08/26/22 21:01 Uric Acid 13.2 mg/dL (3.4-7.0) H 08/26/22 08:43 Calcium 8.4 mg/dL (8.5-10.5) L 08/31/22 02:10 Phosphorus 4.5 mg/dL (2.5-4.5) 08/29/22 04:40 Magnesium 2.4 mg/dL (1.7-2.3) H 08/29/22 04:40 Iron 95 ug/dL (59-158) 08/27/22 03:35 TIBC 235 mcg/dl 08/27/22 03:35 % Saturation 40.4 % (20-50) 08/27/22 03:35 Unsat Iron Binding 140 ug/dL (112-347) 08/27/22 03:35 Ferritin 386 ng/mL (30-400) 08/27/22 03:35 Total Bilirubin 0.3 mg/dL (0.15-1.2) 08/31/22 02:10 AST 20 U/L (0-40) 08/31/22 02:10 ALT 62 U/L (0-41) H 08/31/22 02:10 Alkaline Phosphatase 112 U/L (40-130) 08/31/22 02:10 Troponin T Baseline 3208 ng/L (0-15) H* 08/26/22 05:58 Troponin T 120 Minute 3307 ng/L (0-15) H 08/26/22 08:43 Delta Troponin T 99 ABS# (0-10) H* 08/26/22 08:43 Troponin T Hi Sens 6Hr 3356 ng/L (0-15) H 08/26/22 12:02 Troponin T Hi Sens 6Hr Delta 148 ng/L (0-12) H* 08/26/22 12:02 C-Reactive Protein 32.9 mg/L (0.0-4.9) H 08/25/22 01:25 NT-Pro-B Natriuret Pep 45427 pg/mL (0-125) H 08/25/22 01:25 NT-Pro-B Natriuret Pep Cancelled 08/25/22 01:25 Total Protein 6.0 g/dL (6.6-8.7) L 08/31/22 02:10 Albumin 3.5 g/dL (3.5-5.2) 08/31/22 02:10 Globulin 2.5 g/dL (1.3-4.6) 08/31/22 02:10 Triglycerides 92 mg/dL (0-150) 08/25/22 01:25 Cholesterol 131 mg/dL (0-200) 08/25/22 01:25 LDL Cholesterol, Calc 73 mg/dL (50-129) 08/25/22 01:25 HDL Cholesterol 40 mg/dL (60-100) L 08/25/22 01:25 LDL/HDL Ratio 1.83 RATIO (0.00-3.22) 08/25/22 01:25 Cholesterol/HDL Ratio 3.28 mg/dL (1.0-5.00) 08/25/22 01:25 25-OH Vitamin D Total 16 ng/mL (30-100) L 08/27/22 03:35 Procalcitonin 0.04 ng/mL (0-0.5) 08/25/22 01:25 TSH 0.74 uIU/mL (0.27-4.20) 08/26/22 08:43 PTH Intact 355.4 pg/mL (15-65) H 08/27/22 03:35 Calcium (PTH Intact) 8.6 mg/dL (8.5-10.5) 08/27/22 03:35 Urine Color Yellow (Yellow) 08/25/22 17:51 Urine Appearance Cloudy (CLEAR) A 08/25/22 17:51 Urine pH 5 (5-7) 08/25/22 17:51 Ur Specific Avery 1.025 (1.005-1.030) 08/25/22 17:51 Urine Protein 3+ (Negative) H 08/25/22 17:51 Urine Glucose (UA) Norm (Normal) 08/25/22 17:51 Urine Ketones 1+ (Negative) H 08/25/22 17:51 Urine Blood 3+ (Negative) H 08/25/22 17:51 Urine Nitrate Negative (Negative) 08/25/22 17:51 Urine Bilirubin Neg (Negative) 08/25/22 17:51 Urine Urobilinogen 1 mg/dL (Negative) H 08/25/22 17:51 Ur Leukocyte Esterase 2+ (Negative) H 08/25/22 17:51 Urine RBC Too numerous to cnt /hpf (0-2) H 08/25/22 17:51 Urine WBC 5-10 /hpf (0-5) H 08/25/22 17:51 Ur Squamous Epith Cells None /hpf (0-5) 08/25/22 17:51 Amorphous Sediment 3+ /hpf 08/25/22 17:51 Urine Bacteria 1+ /hpf (NONE) H 08/25/22 17:51 Ur Random Sodium 21 mmol/L 08/27/22 03:15 Ur Random Potassium 59 mmol/L 08/27/22 03:15 Ur Random Chloride < 10 mmol/L 08/27/22 03:15 Serum Ketones Negative (Negative) 08/25/22 04:43 Anti-ds DNA IgG Ab 1 IU/mL 08/26/22 21:01 Complement C3 138 mg/dL (90-180) 08/26/22 08:43 Complement C4 34 mg/dL (10-40) 08/26/22 08:43 Coronavirus 229E (PCR) Not detected (NOT DETECT) 08/25/22 01:00 H. pylori IgG Antibody Negative (Negative) 08/30/22 04:15 Hep Bs Antigen Non-reactive (Nonreactive) 08/29/22 16:17 Hep Bs Antibody 3.5 (11.5-1000) L 08/29/22 16:17 Hep B Core Total Ab Non-reactive (Nonreactive) 08/29/22 16:17 Hepatitis C Antibody Non-reactive (Nonreactive) 08/26/22 21:01 Influenza Type A Ag negative (Negative) 08/25/22 01:00 Influenza Type B Ag negative (Negative) 08/25/22 01:00 SARS-CoV-2 (PCR) Not detected (NOT DETECT) 08/25/22 01:00 Vitals Last Vital Signs Temp 97.6 F 08/31/22 07:08 Pulse 68 08/31/22 07:08 Resp 20 H 08/31/22 07:08 BP 157/57 08/31/22 07:08 Pulse Ox 97 08/31/22 07:08 O2 Del Method 08/31/22 04:00 O2 Flow Rate 2 08/30/22 23:44 FiO2 30 08/30/22 21:00 Discharge Plan Discharge Patient Disposition: Home Condition: Stable Prescriptions: New insulin glargine [Basaglar KwikPen U-100 Insulin] 100 unit/mL (3 mL) insulin pen 10 unit SUBCUT DAILY Qty: 15 0RF allopurinol 100 mg Tablet 100 mg PO DAILY 30 Days Qty: 30 0RF insulin aspart U-100 [Novolog FlexPen U-100 Insulin] 100 unit/mL (3 mL) insulin pen See Rx Instructions .ROUTE .COMPLEX MDD 45 Qty: 15 0RF Rx Instructions: Inject subcut, 3 times daily, after meals, based on sliding scale provided potassium chloride [Klor-Con M20] 20 mEq tablet,ER particles/crystals 20 meq PO BID 30 Days Qty: 60 0RF pantoprazole [Protonix] 40 mg tablet,delayed release (DR/EC) 40 mg PO Q12H 30 Days Qty: 60 0RF sucralfate [Carafate] 1 gram tablet 1 g PO BID 30 Days Qty: 60 0RF Continued ascorbic acid (vitamin C) [Vitamin C] 500 mg tablet 500 mg PO QAM Qty: 100 5RF Rx Instructions: 340 B medications aspirin 81 mg tablet,delayed release (DR/EC) 81 mg PO QAM 90 Days Qty: 90 3RF Rx Instructions: 340 B medications ferrous sulfate 325 mg (65 mg iron) tablet,delayed release (DR/EC) 325 mg PO BIDWM Qty: 100 3RF Rx Instructions: 340 B medications vitamin E 400 unit capsule 400 unit PO QAM Qty: 90 3RF Rx Instructions: 340 B medications (DME) One touch test strips See Rx Instructions .Route .MEDSUPPLY Qty: 1 5RF Rx Instructions: As directed Glucose testing strips triamcinolone acetonide 0.025 % cream 1 applic topical DAILY Qty: 454 1RF hydralazine 50 mg tablet 50 mg PO TID Qty: 270 1RF ondansetron 4 mg tablet,disintegrating 4 mg PO Q6H PRN (Reason: nausea and vomiting) Qty: 30 5RF atorvastatin 40 mg tablet See Rx Instructions .ROUTE .COMPLEX Qty: 60 5RF Dose Instruction: TAKE 2 TABLETS BY MOUTH EVERY DAY FOR CHOLESTEROL Rx Instructions: TAKE 2 TABLETS BY MOUTH EVERY DAY FOR CHOLESTEROL tramadol 50 mg tablet 50 mg PO Q8H PRN (Reason: pain) Qty: 10 0RF isosorbide mononitrate 30 mg tablet extended release 24 hr 30 mg PO BID 90 Days Qty: 180 1RF Rx Instructions: 340 B medications Symbicort 80-4.5 mcg/actuation HFA aerosol inhaler 2 inh inhalation BID 30 Days Qty: 10.2 5RF Rx Instructions: 340 B medications prazosin 1 mg capsule See Rx Instructions .ROUTE .COMPLEX Qty: 60 5RF Dose Instruction: TAKE 1 CAPSULE BY MOUTH TWICE DAILY FOR BLOOD PRESSURE Rx Instructions: TAKE 1 CAPSULE BY MOUTH TWICE DAILY FOR BLOOD PRESSURE nitroglycerin [Nitrostat] 0.4 mg tablet, sublingual 0.4 mg sublingual Q5M PRN (Reason: chest pain) Qty: 25 3RF Rx Instructions: do not exceed 3 doses per episode 340 B medications metoprolol tartrate 50 mg tablet 50 mg PO BID 30 Days Qty: 60 5RF loratadine 10 mg Tablet 10 mg PO DAILY simethicone 250 mg Capsule 250 mg PO BID PRN (Reason: Gastrointestinal Spasms Or Cramping) Changed bumetanide 1 mg tablet 1 mg PO Q12H 30 Days Qty: 60 0RF Rx Instructions: 340 B medications Discontinued metformin 1,000 mg tablet 1,000 mg PO BID prednisone 20 mg tablet 40 mg PO DAILY 5 Days Qty: 10 0RF glimepiride 2 mg tablet 2 mg PO BID Qty: 60 5RF Rx Instructions: 340 B medications metolazone 5 mg tablet See Rx Instructions .ROUTE .COMPLEX Qty: 60 5RF Dose Instruction: TAKE 2 TABLETS BY MOUTH EVERY DAY FOR HEART FAILURE Rx Instructions: TAKE 2 TABLETS BY MOUTH EVERY DAY FOR HEART FAILURE pantoprazole 40 mg tablet,delayed release (DR/EC) 40 mg PO DAILY@12 Qty: 30 5RF Rx Instructions: 340 B medications Discharge Orders: Discharge Order (Routine); Ordered 08/31/22 Ordered By: Dean Danielle Referrals: Juan Rene DO [Physician] - 1 month Donavan Clemons MD [Primary Care Provider] - 1-3 days Francis Israel M.D [Physician] - 1 month Discharge Diet: Cardiac Discharge Activity: Resume usual activity Patient Instructions: Opioid Safety Activity Restrictions/Additional Instructions: - Please take Bumex 1 mg every 12 hours with potassium, see your primary care provider on Wednesday for recheck blood work, check kidney function -Please follow-up with your primary care provider in 1 week -Please follow-up with your linen room attendant in 1 week -For your type 2 diabetes mellitus I discharged you on Lantus 10 units every 24 hours -I have discharged you on insulin sliding scale as below, NovoLog -Insulin sliding fingerstick? Insulin 141-180?2 units/sq 181-220?4 units/sq 221-260?6 units/sq 261-300?8 units/sq 301-350 10 units/sq 351-400 12 units/sq > 400? 14 units/sq ? -Please monitor your blood sugars closely -Monitor your blood sugars 3 times daily as after meals -Please record your blood sugars, and a blood sugar log -For your NovoLog -Please inject blood sugar after meals based on sliding scale provided -Do not inject insulin if you do not eat as hypoglycemia kills -This is a NovoLog sliding scale -Insulin sliding ?fingerstick? Insulin ?141-180?2 units/sq 181-220?4 units/sq ?221-260?6 units/sq ?261-300?8 units/sq ?301-350 10 units/sq ?351-400 12 units/sq > 400? 14 units/sq -If your blood sugar is greater than 500 go to the emergency room -If your blood sugar is less than 60 or at anytime you feel lightheaded or dizzy or diaphoretic or have chest palpitations check your blood sugar, and eat a hard candy or drink orange juice and go immediately to the emergency room -Remember hypoglycemia kills, so if his blood sugar is less than 60 we have to increase it by taking in a sugary meal such as a hard candy or orange juice and go to the emergency room -If you have any questions please call us where here to help -Please stop taking glimepiride, please stopping metformin due to your kidney function -For your hyperuricemia, please take allopurinol -For your anemia, please take Protonix, Carafate as prescribed, follow-up with general surgery in 1 month for consideration of EGD and colonoscopy, if you have bloody or black stools please go to the emergency room Discharge Attestations Time Spent in Discharge Care*: greater than 30 min Status at Discharge: Cognitive status at discharge: cognitively intact, Behavioral status at discharge: cooperative, Quality Metrics Clinical Quality Measures [ No reported AMI, CVA or VTE this stay] Coding Level of Care Code Acute [facility] note Exam Detailed Diagnoses CKD stage 4 due to type 2 diabetes mellitus E11.22; N18.4
[2022-08-31] MEDS: insulin lispro 100 unit/1 mL SUBCUT (08:15)
[2022-08-31 08:36] VITALS: BP 157/57; PULSE 68; RESP 20; TEMP 36.4; O2SAT 97
--- NOTE | 2022-08-31 08:38 | PM.PN ---
Subjective Subjective: Patient is doing well. He is stable. No chest pain. Vitals/I&O/Wt Last Vital Signs Temp 97.6 F 08/31/22 08:36 Pulse 68 08/31/22 08:36 Resp 20 H 08/31/22 08:36 BP 157/57 08/31/22 08:36 Pulse Ox 97 08/31/22 08:36 O2 Del Method 08/31/22 04:00 O2 Flow Rate 2 08/30/22 23:44 FiO2 30 08/31/22 08:00 08/30/22 08/31/22 08/31/22 22:59 06:59 14:59 Intake Total 680 / 1400 Output Total 1400 / 2200 650 / 2850 Balance -720 / -800 -650 / -1450 Weight last 48 hrs Weight 163 lb 14.4 oz Weight 168 lb 11.2 oz Physical Exam Narrative: GENERAL: Patient is alert, awake and oriented x3. On BIPAP [] NECK: No jugular vein distension. [] HEENT: No cyanosis. No icterus. No pallor. [] HEART: Regular S1 and S2. LUNGS: Clear to auscultate bilaterally. [] CENTRAL NERVOUS SYSTEM: Grossly nonfocal. [] EXTREMITIES: Lower extremities with 1+ edema bilaterally. Urinary Catheter Management: Feng: Cath Placed During This Visit: yes, but has since been removed by the nurse Reason for Continuing Indwelling Catheter: Accurate Measurement of Urinary Output in Critically Ill Patients Urinary Catheter Date of Insertion: 08/26/22 Urinary Catheter Time of Insertion: 06:00 Date Urinary Catheter Removed: 08/31/22 Time Urinary Catheter Discontinued: 06:26 Data 08/31/22 02:10 08/31/22 02:10 Micro: Microbiology 08/30/22 22:00 Occult Blood (FIT) - Final Stool A&P Assessment and plan (1) CHF exacerbation: (2) COPD exacerbation: (3) NSTEMI (non-ST elevated myocardial infarction): (4) CKD stage 4 due to type 2 diabetes mellitus: (5) CAD (coronary artery disease): (6) Bilateral lower extremity edema: (7) Acute on chronic respiratory failure with hypoxia: Plan No changes to meds. Patient decided to hold off on dialysis. Thank you for involving us with care of this patient. Patient is stable to be discharged. Please call with questions. Attestations Medical Necessity Statement*: Care expected to cross 2 midnights. Coding Level of Care Code Acute Code for g Fwd Diagnoses CHF exacerbation I50.9 COPD exacerbation J44.1 NSTEMI (non-ST elevated myocardial infarction) I21.4 CKD stage 4 due to type 2 diabetes mellitus E11.22; N18.4 CAD (coronary artery disease) I25.10 Bilateral lower extremity edema R60.0 Acute on chronic respiratory failure with hypoxia J96.21
[2022-08-31] MEDS: ipratropium-albuterol 3 mL Neb INHALATION (08:56)
[2022-08-31 09:00] VITALS: PULSE 70; RESP 16; O2SAT 94
[2022-08-31 09:05] VITALS: PULSE 74
[2022-08-31] MEDS: metoprolol tartrate 50 mg Tablet PO (10:00)
[2022-08-31] MEDS: pantoprazole DR 40 mg Tablet PO (10:00)
[2022-08-31] MEDS: isosorbide mononitrate ER 30 mg Tablet PO (10:00)
[2022-08-31] MEDS: hyDRALAzine 50 mg Tablet PO (10:01)
[2022-08-31] MEDS: allopurinol 100 mg Tablet PO (10:01)
[2022-08-31] MEDS: bumetanide 0.25 mg/mL SDV 4 mL 1 MG IVP (10:01)
[2022-08-31] MEDS: prazosin 1 mg Capsule PO (10:01)
[2022-08-31 10:41] LABS: Anti-Nuclear Antibody Screen NEGATIVE (NEGATIVE)
--- NOTE | 2022-08-31 11:47 | PC.NURSE ---
discharge instructions given and explained to pt and .they verb understanding of instructions.prescriptions supplied by [facility] meds to beds program.discharged via w/c to exit at this time.
[2022-08-31 15:04] LABS: Vit D 1,25 (Oh)2, Total 46 pg/mL (18-72); Vit D2 1,25 (Oh)2 <8 pg/mL; Vit D3 1,25 (Oh)2 46 pg/mL
[2022-09-01 11:25] LABS: ANCA Screen NEGATIVE (NEGATIVE)
== END 2022-08-31 11:48 | disposition home or self-care (01) | DRG 280 ==
LOC: ER 23:14 → MEDSURG 08-25 00:23 → CSU 08-27 12:53
PROVIDERS: Internal Medicine; Internal Medicine Nephrology; Admitting Provider Family Medicine; Emergency Provider Family Medicine; PCP Family Medicine Adult Medicine; Visit Provider Family Medicine
PROC: 4A023N7 Measurement of Cardiac Sampling and Pressure, Left Heart, Percutaneous Approach (ICD-10-PCS; principal; 2022-08-27 11:00)
DX: I13.0 Hypertensive heart and chronic kidney disease with heart failure and stage 1 through stage 4 chronic kidney disease, or unspecified chronic kidney disease (principal); I21.4 Non-ST elevation (NSTEMI) myocardial infarction; I50.41 Acute combined systolic (congestive) and diastolic (congestive) heart failure; J96.21 Acute and chronic respiratory failure with hypoxia; N18.4 Chronic kidney disease, stage 4 (severe); J44.0 Chronic obstructive pulmonary disease with (acute) lower respiratory infection; J44.1 Chronic obstructive pulmonary disease with (acute) exacerbation; N17.9 Acute kidney failure, unspecified; K55.1 Chronic vascular disorders of intestine; E87.20 Acidosis, unspecified; E11.22 Type 2 diabetes mellitus with diabetic chronic kidney disease; E11.65 Type 2 diabetes mellitus with hyperglycemia; E11.21 Type 2 diabetes mellitus with diabetic nephropathy; I25.10 Atherosclerotic heart disease of native coronary artery without angina pectoris; Z95.1 Presence of aortocoronary bypass graft; Z95.5 Presence of coronary angioplasty implant and graft; I25.2 Old myocardial infarction; D63.1 Anemia in chronic kidney disease; I25.5 Ischemic cardiomyopathy; G47.33 Obstructive sleep apnea (adult) (pediatric); Z99.89 Dependence on other enabling machines and devices; E78.5 Hyperlipidemia, unspecified; K59.00 Constipation, unspecified; E55.9 Vitamin D deficiency, unspecified; E21.3 Hyperparathyroidism, unspecified; D17.79 Benign lipomatous neoplasm of other sites; E87.5 Hyperkalemia; Z87.891 Personal history of nicotine dependence; Z79.891 Long term (current) use of opiate analgesic; Z79.82 Long term (current) use of aspirin; K26.9 Duodenal ulcer, unspecified as acute or chronic, without hemorrhage or perforation; D50.9 Iron deficiency anemia, unspecified
CPT/HCPCS: 36415; 36416; 51702; 71045; 74176; 76705; 80048; 80053; 80061; 81001; 82009; 82274; 82306; 82310; 82436; 82652; 82728; 82962; 83036; 83540; 83550; 83605; 83735; 83880; 83970; 84100; 84133; 84145; 84300; 84443; 84484; 84550; 85025; 85347; 85730; 86036; 86038; 86140; 86160; 86225; 86677; 86705; 86706; 86803; 87338; 87340; 87635; 87804; 93005; 93306; 93459; 93970; 94640; 94660; 94664; 96365; 96372; 96375; 97161; 97530; 99152; 99153; 99285; C1769; C1887; C1894; J0610; J1644; J1650; J1815; J1940; J2250; J2270; J2405; J2920; J2930; J3010; J3490; J7030; Q3014; Q4081; Q9967

== ENCOUNTER → 2022-09-04 10:47 | Outpatient (BNVA) | payer MEDICARE, SELFPAY | PROVIDERS: PCP Family Medicine Adult Medicine; Visit Provider Family Medicine Adult Medicine | DX: K26.9 Duodenal ulcer, unspecified as acute or chronic, without hemorrhage or perforation (principal); E11.22 Type 2 diabetes mellitus with diabetic chronic kidney disease; N18.4 Chronic kidney disease, stage 4 (severe); I10 Essential (primary) hypertension | CPT/HCPCS: 80053; 84443; 84550; 85025 ==

== ENCOUNTER 2022-09-09 13:25 | Outpatient (RCR) | payer SELFPAY | END 2022-10-06 23:59 | disposition home or self-care (01) | LOC: CR 13:25 | PROVIDERS: PCP Family Medicine Adult Medicine; Referring Provider Internal Medicine; Visit Provider Internal Medicine | DX: Z95.5 Presence of coronary angioplasty implant and graft (principal) ==

== ENCOUNTER → 2022-09-11 07:15 | Outpatient (BNVA) | payer MEDICARE, SELFPAY | PROVIDERS: PCP Family Medicine Adult Medicine; Referring Provider Family Medicine Adult Medicine; Visit Provider Internal Medicine | DX: E11.65 Type 2 diabetes mellitus with hyperglycemia (principal); E11.22 Type 2 diabetes mellitus with diabetic chronic kidney disease; N18.4 Chronic kidney disease, stage 4 (severe); D50.8 Other iron deficiency anemias; E78.2 Mixed hyperlipidemia; I50.9 Heart failure, unspecified; Z79.4 Long term (current) use of insulin | CPT/HCPCS: 99204 ==

== ENCOUNTER → 2022-09-17 10:34 | Outpatient (BNVA) | payer MEDICARE, SELFPAY | PROVIDERS: PCP Family Medicine Adult Medicine; Visit Provider Internal Medicine Nephrology | DX: N18.32 Chronic kidney disease, stage 3b (principal) | CPT/HCPCS: 80069; 82043; 82310; 83970; 85025 ==

== ENCOUNTER → 2022-09-29 12:48 | Outpatient (BNVA) | payer MEDICARE, SELFPAY | PROVIDERS: PCP Family Medicine Adult Medicine; Visit Provider Internal Medicine | DX: I25.10 Atherosclerotic heart disease of native coronary artery without angina pectoris (principal); I45.5 Other specified heart block; I13.0 Hypertensive heart and chronic kidney disease with heart failure and stage 1 through stage 4 chronic kidney disease, or unspecified chronic kidney disease; E11.22 Type 2 diabetes mellitus with diabetic chronic kidney disease; N18.4 Chronic kidney disease, stage 4 (severe); I50.9 Heart failure, unspecified; N17.9 Acute kidney failure, unspecified; Z87.891 Personal history of nicotine dependence; Z79.4 Long term (current) use of insulin | CPT/HCPCS: 99214 ==

== ENCOUNTER → 2022-10-01 10:07 | Outpatient (BNVA) | payer MEDICARE, SELFPAY | PROVIDERS: PCP Family Medicine Adult Medicine; Visit Provider Internal Medicine | DX: I50.32 Chronic diastolic (congestive) heart failure (principal); E11.22 Type 2 diabetes mellitus with diabetic chronic kidney disease; N18.4 Chronic kidney disease, stage 4 (severe); I13.0 Hypertensive heart and chronic kidney disease with heart failure and stage 1 through stage 4 chronic kidney disease, or unspecified chronic kidney disease | CPT/HCPCS: 80048; 85025 ==

== ENCOUNTER 2022-10-07 14:06 | Outpatient (RCR) | payer SELFPAY | END 2022-11-06 23:59 | disposition home or self-care (01) | LOC: CR 14:06 | PROVIDERS: PCP Family Medicine Adult Medicine; Referring Provider Internal Medicine; Visit Provider Internal Medicine | DX: Z95.5 Presence of coronary angioplasty implant and graft (principal) ==

== ENCOUNTER → 2022-10-20 11:35 | Outpatient (BNVA) | payer MEDICARE, SELFPAY | PROVIDERS: PCP Family Medicine Adult Medicine; Visit Provider Family Medicine Adult Medicine | DX: E78.2 Mixed hyperlipidemia (principal); E79.0 Hyperuricemia without signs of inflammatory arthritis and tophaceous disease; N18.4 Chronic kidney disease, stage 4 (severe); D63.1 Anemia in chronic kidney disease; E11.22 Type 2 diabetes mellitus with diabetic chronic kidney disease; E55.9 Vitamin D deficiency, unspecified; E11.65 Type 2 diabetes mellitus with hyperglycemia | CPT/HCPCS: 80048; 80069; 82043; 82306; 82310; 83036; 83970; 85025 ==

== ENCOUNTER 2022-11-06 11:26 | Inpatient (IN) | payer MEDICARE, SELFPAY ==
[2022-11-06] VITALS (25 sets, daily range): BP systolic 130–153; BP diastolic 37–96; PULSE 32–71; RESP 16–28; TEMP 36.4–36.6; O2SAT 91–99; BMI 28.8
--- NOTE | 2022-11-06 11:34 | ECG_ITS ---
[facility] Test Date: 2022-11-06 Pat Name: Luis Alfredo Thompson Department: Room: Gender: Male Regional Economist: : 1955 Requested By: Brian Manzo Order Number: [id number] Jack MD: Francis Israel M.D. Measurements Intervals [place] Rate: 64 P: 81 TN: 169 QRS: 15 QRSD: 123 T: -75 QT: 427 QTc: 441 Interpretive Statements SINUS RHYTHM WITH FREQUENT VENTRICULAR PREMATURE COMPLEXES IN A BIGEMINAL PATTERN MODERATE INTRAVENTRICULAR CONDUCTION DELAY [110+ ms QRS DURATION] ST DEVIATION AND MODERATE T-WAVE ABNORMALITY, CONSIDER INFERIOR ISCHEMIA [-0.1+ mV T-WAVE IN II/aVF] Compared to ECG 08/27/2022 06:26:36 Intraventricular conduction delay now present T-wave abnormality now present Possible ischemia now present Myocardial infarct finding no longer present Electronically Signed On 11-06-2022 15:53:12 CDT by Francis Israel M.D. [id number]
--- NOTE | 2022-11-06 11:34 | ECG_ITS ---
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 Measurements Intervals [place] Rate: 64 P: 81 ND: 169 QRS: 15 QRSD: 123 T: -75 QT: 427 QTc: 441 Interpretive Statements SINUS RHYTHM WITH FREQUENT VENTRICULAR PREMATURE COMPLEXES IN A BIGEMINAL PATTERN MODERATE INTRAVENTRICULAR CONDUCTION DELAY [110+ ms QRS DURATION] ST DEVIATION AND MODERATE T-WAVE ABNORMALITY, CONSIDER INFERIOR ISCHEMIA [-0.1+ mV T-WAVE IN II/aVF] Compared to ECG 08/27/2022 06:26:36 Intraventricular conduction delay now present T-wave abnormality now present Possible ischemia now present Myocardial infarct finding no longer present Electronically Signed On 11-06-2022 15:53:16 CDT by Francis Israel M.D. [id number] f
[2022-11-06 12:18] LABS: Basophils % 0.6 %; Eosinophils # 0.1 10^3/uL (0.0-0.8); Eosinophils % 1.9 %; Hematocrit 27.8 % (42.0-52.0); Hemoglobin 8.1 g/dL (11.7-16.6); Lymphocytes # 0.9 10^3/uL (0.8-4.8); Lymphocytes % 13.6 %; Mean Corpuscular HGB Conc 29.1 g/dL (30.0-36.0); Mean Corpuscular Hemoglobin 27.8 pg (28.0-34.0); Mean Corpuscular Volume 95.5 fl (80-94); Mean Platelet Volume 11.7 fL (7.4-10.4); Monocytes # 0.6 10^3/uL (0.2-0.9); Monocytes % 8.1 %; Neutrophils % 75.4 %; Nucleated Red Blood Cells % 0 %; Platelet Count 180 10^3/cmm (130-400); Red Blood Count 2.91 10^6/uL (4.1-5.3); White Blood Count 6.8 10^3/uL (4.0-10.0)
--- NOTE | 2022-11-06 12:32 | W.ED.ABDPA2 ---
HPI - Abdominal Pain General: Chief Complaint: Abdominal Pain Stated Complaint: sob, heart pt Time Seen by Provider: 11/06/22 11:43 Source: patient Mode of arrival: ambulatory History of Present Illness: 67 -year-old male presents emergency room complaining of intermittent shortness of breath and abdominal discomfort. States abdominal pain has been going on for over a month now. He is supposed to wear oxygen chronically. He is not wearing oxygen and comes in today he had left it in his car. He normally wears 2 and half liters per minute. He denies any chest pain or discomfort no hematochezia melena hematemesis or coffee-ground emesis. No vomiting no diarrhea. PFSH ED PFSH: Medical History Abnormal abdominal CT scan Acute non-ST segment elevation myocardial infarction (NSTEMI) following previous myocardial infarction Allergic rhinitis due to allergen Anemia, chronic renal failure Anemia, iron deficiency Atopic dermatitis and related condition Bilateral lower extremity edema CAD (coronary artery disease) remote CABG, NSTEMI, Stents 07/2021 Cellulitis of right lower leg CHF (congestive heart failure) Chronic nausea CKD stage 4 due to type 2 diabetes mellitus COPD (chronic obstructive pulmonary disease) Diabetes mellitus, type II Elevated uric acid in blood Essential hypertension Gout Hypercholesterolemia Inflammatory monoarthritis of right wrist Ischemic cardiomyopathy ORA on CPAP Postprandial abdominal bloating Sinus node dysfunction Surgical History History of appendectomy History of coronary artery stent placement Hx of CABG Family History Father Cancer Other Diabetes Social History Smoking and tobacco status: former smoker Quit status (tobacco): has quit using tobacco Year quit tobacco: June 2021 Former quit date comment: 1.5ppd x 57years Alcohol intake: current Alcohol intake frequency: holidays/special occasions only Alcohol type: beer Desire information about substance/drug rehabilitation?: No Caregiver/support person: No Lives independently: Yes Household members: spouse Marital status: Number of children: 2 service: No Current occupational status: retired and disabled Current gender identity: Male Physical Exam Const: GENERAL APPEARANCE: cooperative and comfortable ORIENTATION/CONSCIOUSNESS: Yes awake, Yes oriented to person, Yes oriented to place and Yes oriented to time HENMT: COMMON NORMALS: normocephalic, atraumatic and hearing grossly normal bilaterally HEAD & SCALP: normocephalic and atraumatic Resp: COMMON NORMALS: normal respiratory effort, No retractions and No use of accessory muscles AUSCULTATION: diminished lung sounds Cardio: COMMON NORMALS: regular rate, regular rhythm and No murmurs present (Cardio) RATE: regular rate RHYTHM: regular rhythm GI: COMMON NORMALS: No hepatosplenomegaly present AUSCULTATION: Yes normoactive bowel sounds PALPATION: Yes Tenderness to palpation present (GI) (Periumbilical tenderness), No Guarding due to palpation present (GI) and Yes No hepatosplenomegaly present RECTAL EXAM: Yes heme positive stool : COMMON NORMALS: Yes no CVA tenderness BLADDER/KIDNEY EXAM: Yes no CVA tenderness Back/Pelvis: COMMON NORMALS: no CVA tenderness Extremity: COMMON NORMALS: normal to inspection, capillary refill normal, no clubbing, cyanosis or edema, no calf tenderness and no pedal edema Neuro: SENSORIUM/ORIENTATION: Yes oriented to person, Yes oriented to place and Yes oriented to time Skin: COMMON NORMALS: no rashes or lesions noted GENERAL SKIN EXAM: no rashes or lesions noted Course Vital Signs: Vital signs: Vital Signs Temperature 97.5 F L 11/06/22 11:29 Pulse Rate 60 11/06/22 13:53 Respiratory Rate 17 11/06/22 13:53 Blood Pressure 140/94 11/06/22 13:53 Pulse Oximetry 97 11/06/22 13:53 Oxygen Delivery Me thod 11/06/22 13:53 MDM - Abdominal Pain Medical Decision Making Hemoccult positive stools. Hemoglobin at 8 1. Is a palpable pulse of around 30 he has bigeminy but they do not seem to be producing any palpable pulse-wave. His blood pressure has been stable. Discussed with hospitalist will admit. Incidental finding of a fat-containing umbilical and supraumbilical hernias along minimal tenderness I do not think those are acute at this point. Lab Data 11/06/22 12:05 11/06/22 12:05 Labs/Radiology: Radiology Impressions Chest X-Ray 11/06/22 12:40 IMPRESSION: 1. No acute process identified. 2. Cardiac enlargement unchanged. Abdomen/Pelvis CT 11/06/22 12:52 IMPRESSION: 1. Fat-containing umbilical and supraumbilical hernias. Small amount of fluid and induration along the RIGHT supraumbilical hernia is new from previous. Recommend correlation with epigastric pain. 2. No herniated bowel. 3. Small bilateral pleural effusions RIGHT greater than LEFT. 4. Cardiomegaly. 5. Small amount of perihepatic and perisplenic ascites with body wall anasarca and mesenteric edema. 6. Sigmoid diverticulosis. Laboratory Results WBC 6.8 10^3/uL (4.0-10.0) 11/06/22 12:05 RBC 2.91 10^6/uL (4.1-5.3) L 11/06/22 12:05 Hgb 8.1 g/dL (11.7-16.6) L 11/06/22 12:05 Hct 27.8 % (42.0-52.0) L 11/06/22 12:05 MCV 95.5 fl (80-94) H 11/06/22 12:05 MCH 27.8 pg (28.0-34.0) L 11/06/22 12:05 MCHC 29.1 g/dL (30.0-36.0) L 11/06/22 12:05 RDW 15.0 % (12.1-15.1) 11/06/22 12:05 Plt Count 180 10^3/cmm (130-400) 11/06/22 12:05 MPV 11.7 fL (7.4-10.4) H 11/06/22 12:05 Neut % (Auto) 75.4 % 11/06/22 12:05 Lymph % (Auto) 13.6 % 11/06/22 12:05 [place] % (Auto) 8.1 % 11/06/22 12:05 Eos % (Auto) 1.9 % 11/06/22 12:05 Baso % (Auto) 0.6 % 11/06/22 12:05 Neut # (Auto) 5.10 10^3/uL (1.8-7.7) 11/06/22 12:05 Lymph # (Auto) 0.9 10^3/uL (0.8-4.8) 11/06/22 12:05 [place] # (Auto) 0.6 10^3/uL (0.2-0.9) 11/06/22 12:05 Eos # (Auto) 0.1 10^3/uL (0.0-0.8) 11/06/22 12:05 Baso # (Auto) 0.0 10^3/uL (0.0-0.1) 11/06/22 12:05 Nucleated RBC % (auto) 0 % 11/06/22 12:05 Nucleated RBCs # 0.0 /100WBC 11/06/22 12:05 Sodium 141 mmol/L (136-145) 11/06/22 12:05 Potassium 4.5 mmol/L (3.5-5.1) 11/06/22 12:05 Chloride 107 mmol/L (98-107) 11/06/22 12:05 Carbon Dioxide 18 mmol/L (22-29) L 11/06/22 12:05 Anion Gap 20.5 (5-19) H 11/06/22 12:05 BUN 92 mg/dL (8-23) H* 11/06/22 12:05 Creatinine 3.9 mg/dL (0.7-1.2) H 11/06/22 12:05 GFR Calculation 15.5 mL/min (90-130) L 11/06/22 12:05 Glucose 268 mg/dL (65-115) H 11/06/22 12:05 Calculated Osmolality 330 mOsm/kg (285-295) H 11/06/22 12:05 Calcium 8.9 mg/dL (8.5-10.5) 11/06/22 12:05 Total Bilirubin 0.3 mg/dL (0.15-1.2) 11/06/22 12:05 AST 21 U/L (0-40) 11/06/22 12:05 ALT 29 U/L (0-41) 11/06/22 12:05 Alkaline Phosphatase 114 U/L (40-130) 11/06/22 12:05 Troponin T Baseline 112 ng/L (0-15) H* 11/06/22 12:04 Total Protein 5.9 g/dL (6.6-8.7) L 11/06/22 12:05 Albumin 3.8 g/dL (3.5-5.2) 11/06/22 12:05 Globulin 2.1 g/dL (1.3-4.6) 11/06/22 12:05 Lipase 71 U/L (13-60) H 11/06/22 12:05 TSH 2.30 uIU/mL (0.27-4.20) 11/06/22 12:04 Urine Color Yellow (Yellow) 11/06/22 12:36 Urine Appearance Clear (CLEAR) 11/06/22 12:36 Urine pH 5 (5-7) 11/06/22 12:36 Ur Specific [place] 1.010 (1.005-1.030) 11/06/22 12:36 Urine Protein 1+ (Negative) H 11/06/22 12:36 Urine Glucose (UA) Norm (Normal) 11/06/22 12:36 Urine Ketones Negative (Negative) 11/06/22 12:36 Urine Blood Neg (Negative) 11/06/22 12:36 Urine Nitrate Negative (Negative) 11/06/22 12:36 Urine Bilirubin Neg (Negative) 11/06/22 12:36 Urine Urobilinogen Norm mg/dL (Negative) 11/06/22 12:36 Ur Leukocyte Esterase Negative (Negative) 11/06/22 12:36 Urine RBC Rare /hpf (0-2) 11/06/22 12:36 Urine WBC 0-4 /hpf (0-5) H 11/06/22 12:36 Ur Squamous Epith Cells 0-4 /hpf (0-5) H 11/06/22 12:36 Amorphous Sediment Not Reportable 11/06/22 12:36 Urine Bacteria 1+ /hpf (NONE) H 11/06/22 12:36 Hyaline Casts 5-10 /lpf H 11/06/22 12:36 Urine Mucus Trace /hpf 11/06/22 12:36 Discharge Plan Discharge Condition: Stable Prescriptions: No Action ascorbic acid (vitamin C) [Vitamin C] 500 mg tablet 500 mg PO QAM Qty: 100 5RF Rx Instructions: 340 B medications aspirin 81 mg tablet,delayed release (DR/EC) 81 mg PO QAM 90 Days Qty: 90 3RF Rx Instructions: 340 B medications vitamin E 400 unit capsule 400 unit PO QAM Qty: 90 3RF Rx Instructions: 340 B medications triamcinolone acetonide 0.025 % cream 1 applic topical DAILY Qty: 454 1RF hydralazine 50 mg tablet 50 mg PO TID Qty: 270 1RF (DME) One touch test strips 100 See Rx Instructions .Route .MEDSUPPLY Qty: 3 5RF Rx Instructions: As directed Glucose testing strips three times daily on Insulin vitamin B complex Tablet 1 tab PO DAILY ferrous sulfate 325 mg (65 mg iron) tablet,delayed release (DR/EC) 325 mg PO BIDWM Rx Instructions: 340 B medications ondansetron 4 mg tablet,disintegrating 4 mg PO Q6H PRN (Reason: nausea and vomiting) Qty: 30 5RF atorvastatin 40 mg tablet See Rx Instructions .ROUTE .COMPLEX Qty: 60 5RF Dose Instruction: TAKE 2 TABLETS BY MOUTH EVERY DAY FOR CHOLESTEROL Rx Instructions: TAKE 2 TABLETS BY MOUTH EVERY DAY FOR CHOLESTEROL nitroglycerin [Nitrostat] 0.4 mg tablet, sublingual 0.4 mg sublingual Q5M PRN (Reason: chest pain) Qty: 25 3RF Rx Instructions: do not exceed 3 doses per episode 340 B medications isosorbide mononitrate 30 mg tablet extended release 24 hr 30 mg PO BID 90 Days Qty: 180 1RF Rx Instructions: 340 B medications albuterol sulfate 90 mcg/actuation HFA aerosol inhaler 2 puff inhalation .q 4-6 hr PRN (Reason: shortness of breath or wheezing) Qty: 8.5 3RF bumetanide 1 mg tablet 1 mg PO Q12H Qty: 60 5RF Rx Instructions: 340 B medications (DME) 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 Misc See Rx Instructions .ROUTE .MEDSUPPLY Qty: 1 3RF Rx Instructions: change every 90 days (DME) Dexcom G6 Sensor Device See Rx Instructions .ROUTE .MEDSUPPLY Qty: 9 3RF Rx Instructions: change every 10 days (DME) Dexcom G6 Transmitter Device See Rx Instructions .ROUTE .MEDSUPPLY Qty: 1 3RF Rx Instructions: change every 3 months allopurinol 100 mg tablet 100 mg PO DAILY 30 Days Qty: 30 5RF (DME) FreeStyle Elli 2 Sensor Kit See Rx Instructions .ROUTE .MEDSUPPLY Qty: 6 2RF Rx Instructions: change every 14 days (DME) FreeStyle Elli 2 Lawrence Misc See Rx Instructions .Route Qty: 1 0RF Rx Instructions: As directed prazosin 1 mg capsule See Rx Instructions .ROUTE .COMPLEX Qty: 60 5RF Dose Instruction: TAKE 1 CAPSULE BY MOUTH TWICE DAILY FOR BLOOD PRESSURE Rx Instructions: TAKE 1 CAPSULE BY MOUTH TWICE DAILY FOR BLOOD PRESSURE Symbicort 80-4.5 mcg/actuation HFA aerosol inhaler 2 inh inhalation BID 30 Days Qty: 10.2 5RF Rx Instructions: 340 B medications metoprolol tartrate 50 mg tablet 50 mg PO BID 30 Days Qty: 60 5RF Klor-Con M20 20 mEq tablet,ER particles/crystals 20 meq PO DAILY Qty: 90 2RF metoclopramide HCl [Reglan] 10 mg tablet 10 mg PO TID PRN (Reason: nausea and vomiting) Qty: 90 5RF loratadine 10 mg Tablet 10 mg PO DAILY simethicone 250 mg Capsule 250 mg PO BID PRN (Reason: Gastrointestinal Spasms Or Cramping) Basaglar KwikPen U-100 Insulin 100 unit/mL (3 mL) insulin pen 10 unit SUBCUT DAILY Qty: 15 0RF Novolog FlexPen U-100 Insulin 100 unit/mL (3 mL) insulin pen See Rx Instructions .ROUTE .COMPLEX MDD 45 Qty: 15 0RF Rx Instructions: Inject subcut, 3 times daily, after meals, based on sliding scale provided Referrals: Donavan Clemons MD [Primary Care Provider] - Coding Level of Care Code ED Telemarketer Supervisor for Hong Cunningham
--- NOTE | 2022-11-06 12:40 | XR_ITS ---
WS: [id number] Exam: XR chest 1V portable [id number] Date/Time of Exam: 11/06/2022 12:53 PM Reason For Exam: dyspnea/cough Comparison 08/27/2022. The lungs are clear and fully expanded. The heart is enlarged but unchanged in size. Signs of previou s CABG surgery and coronary artery stenting. Regional bony elements are intact. The mediastinum is no rmal in contour. XR/XR chest 1V portable [id number] IMPRESSION: 1. No acute process identified. 2. Cardiac enlargement unchanged.
[2022-11-06 12:50] LABS: Alanine Aminotransferase 29 U/L (0-41); Albumin Level 3.8 g/dL (3.5-5.2); Alkaline Phosphatase 114 U/L (40-130); Anion Gap 20.5 (5-19); Aspartate Amino Transferase 21 U/L (0-40); Calcium 8.9 mg/dL (8.5-10.5); Carbon Dioxide 18 mmol/L (22-29); Chloride 107 mmol/L (98-107); Globulin 2.1 g/dL (1.3-4.6); Glomerular Filtration Rate 15.5 mL/min (90-130); Glucose 268 mg/dL (65-115); Lipase 71 U/L (13-60); Osmolality Calculated 330 mOsm/kg (285-295); Potassium 4.5 mmol/L (3.5-5.1); Sodium 141 mmol/L (136-145); Total Bilirubin 0.3 mg/dL (0.15-1.2); Total Protein 5.9 g/dL (6.6-8.7)
--- NOTE | 2022-11-06 12:52 | CT_ITS ---
WS: [id number] CT ABDOMEN PELVIS TECHNIQUE: Noncontrast CT of the abdomen and pelvis with coronal and sagittal reformatted images. CLINICAL INFORMATION: Abdominal pain COMPARISON: CT August 25, 2022 DLP: 660.[address] scans at [facility] use at least one of these dose optimization techniques: automated e xposure control; mA and/or kV adjustment per patient size (includes targeted exams where dose is matc hed to clinical indication); or iterative reconstruction. FINDINGS: Small bilateral pleural effusions. Compressive atelectasis in the lung bases. Stable bilateral adrena l myelolipoma cyst. Normal GE junction. Normal gallbladder fossa. Small amount of perihepatic and per isplenic ascites. Noncontrast pancreas is normal. No hydronephrosis in either kidney. No obstructing renal or ureteral calculi. Small bilateral renal cysts. Dense vascular calcification. Normal caliber abdominal aorta. Calcification along the celiac and SMA origins. Extensive sigmoid diverticulosis. No evidence of acute diverticulitis. Fat-containing umbilical and s upraumbilical hernias. Small amount of fluid with induration involving a RIGHT supraumbilical hernia appears new from previous. Recommend correlation with periumbilical pain. Prior appendectomy. CT/CT abdomen pelvis wo con [id number] IMPRESSION: 1. Fat-containing umbilical and supraumbilical hernias. Small amount of fluid and induration along the RIGHT supraumbilical hernia is new from previous. Dante mmend correlation with epigastric pain. 2. No herniated bowel. 3. Small bilateral pleural effusions RIGHT greater than LEFT. 4. Cardiomegaly. 5. Small amount of perihepatic and perisplenic ascites with body wall anasarca and mesenteric edema. 6. Sigmoid diverticulosis.
[2022-11-06 12:55] LABS: Blood Urea Nitrogen 92 mg/dL (8-23)
[2022-11-06 13:14] LABS: Add Urine Microscopic? YES; Bilirubin Urine Neg (Negative); Blood Urine Neg (Negative); Glucose Urine UA Norm (Normal); Ketones Urine Negative (Negative); Leukocyte Esterase Urine Negative (Negative); Nitrate Urine Negative (Negative); Protein Urine 1+ (Negative); Urine Appearance Clear (CLEAR); Urine Color Yellow (Yellow); Urobilinogen Urine Norm (Negative); pH Urine 5 (5-7)
[2022-11-06 13:15] LABS: Bacteria Urine 1+ /hpf; Mucus Urine TRACE /hpf; RBC Urine RARE /hpf (0-2); Squamous Epithelial Cell Urine 0-4 /hpf (0-5); WBC Urine 0-4 /hpf (0-5)
[2022-11-06 13:16] LABS: Add Urine Culture? No
[2022-11-06 13:17] LABS: Troponin(5th) Baseline 112 ng/L (0-15)
--- NOTE | 2022-11-06 14:40 | ECG_ITS ---
[facility] Test Date: 2022-11-06 Pat Name: Luis Alfredo Thompson Department: Room: Gender: Male Disability Representative: : 1955 Requested By: Brian Manzo Order Number: [id number] Jack MD: Francis Israel M.D. Measurements Intervals [place] Rate: 62 P: 88 CT: 192 QRS: 2 QRSD: 126 T: -83 QT: 423 QTc: 431 Interpretive Statements SINUS RHYTHM WITH FREQUENT VENTRICULAR PREMATURE COMPLEXES IN A BIGEMINAL PATTERN POSSIBLE RIGHT VENTRICULAR CONDUCTION DELAY [RSR (QR) IN V1/V2] ST DEVIATION AND MODERATE T-WAVE ABNORMALITY, CONSIDER INFERIOR ISCHEMIA [-0.1+ mV T-WAVE IN II/aVF] Compared to ECG 11/06/2022 11:34:27 Intraventricular conduction delay no longer present T-wave abnormality still present Possible ischemia still present Electronically Signed On 11-06-2022 15:54:34 CDT by Francis Israel M.D. [id number]
--- NOTE | 2022-11-06 15:08 | P.HP_ITS ---
Providers/Chief Complaint Primary Care Provider: Donavan Clemons MD Chief Complaint: sob, heart pt History of Present Illness Luis Alfredo Thompson is a 67 year old male with a past medical history of ischemic cardiomyopathy LVEF 25 to 30%, history of CKD stage IV, history of NSTEMI, with history of coronary stent SVG to PDA, history of balloon angioplasty of in-stent restenosis of LAD, recent history of coronary angiogram with no new changes, h istory of iron deficiency anemia, history of anemia, history of concerns for slow GI bleed, type 2 diabetes mellitus who presents to [facility] for complaints of abdominal pain, and shortness of breath. Patient tells me that he here in the emergency room, as he has been noticing that he has had abdominal pain, no reported bloody or black stools, but his Hemoccult stool was positive in the emergency room, no hematemesis, he has been feeling weak and fatigued and tired. He does report increased shortness of breath, he is taking his Bumex, no significant lower extremity edema. Denies any chest pain, no palpitations. Review of Systems Const: Reports: chills, fatigue and malaise; Denies: fever(s) Eyes: Denies: change in vision Card: Denies: chest pain Resp: Reports: dyspnea GI: Reports: abdominal pain; Denies: nausea, vomiting, hematochezia or melena : Denies: flank pain Musc: Denies: back pain Neuro: Denies: headache(s) Medications/Allergies Home Medications Medication Instructions Recorded Confirmed Last Taken Type ascorbic acid (vitamin C) 500 mg 500 mg PO [employer] #100 tabs 08/22/21 09/29/22 Unknown Rx tablet (Vitamin C) aspirin 81 mg tablet,delayed 81 mg PO QA 90 days #90 tabs 08/22/21 09/29/22 Unknown Rx release vitamin E 268 mg (400 unit) capsule 400 unit PO [employer] #90 caps 08/22/21 09/29/22 Unknown Rx nitroglycerin 0.4 mg sublingual 0.4 mg sublingual Q5M PRN chest 05/01/22 09/29/22 Unknown Rx tablet (Nitrostat) pain #25 tabs hydralazine 50 mg tablet 50 mg PO TID blood Pressure #270 06/11/22 09/29/22 Unknown Rx tabs triamcinolone acetonide 0.025 % 1 applic topical DAILY #454 grams 06/11/22 09/29/22 Unknown Rx topical cream ondansetron 4 mg disintegrating 4 mg PO Q6H PRN nausea and 07/07/22 09/29/22 Unknown Rx tablet vomiting #30 tabs loratadine 10 mg tablet 10 mg PO DAILY 08/25/22 09/29/22 Unknown History simethicone 250 mg capsule 250 mg PO BID PRN Gastrointestinal 08/25/22 09/11/22 Unknown History Spasms Or Cramping insulin aspart U-100 100 unit/mL See Rx Instructions .Route 08/31/22 09/29/22 Unknown Rx (3 mL) subcutaneous pen (Novolog .COMPLEX #15 mL FlexPen U-100 Insulin aspart) One touch test strips #3 ea 09/01/22 09/29/22 Unknown Rx isosorbide mononitrate 30 mg 30 mg PO BID chest pain 90 days 09/07/22 09/29/22 Unknown Rx tablet,extended release 24 hr #180 tabs ferrous sulfate 325 mg (65 mg 325 mg PO BIDWM iron deficiency 09/11/22 09/29/22 Unknown History iron) tablet,delayed release blood-glucose meter,continuous #1 ea 09/14/22 Unknown Rx (Dexcom G6 [employer]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) blood-glucose sensor (Dexcom G6 #9 ea 09/14/22 Unknown Rx Sensor device) blood-glucose transmitter ([employer] #1 ea 09/14/22 Unknown Rx G6 Transmitter device) bumetanide 1 mg tablet 1 mg PO Q12H Heart failure #60 tabs 09/14/22 09/29/22 Unknown Rx allopurinol 100 mg tablet 100 mg PO DAILY gout 30 days #30 09/22/22 09/29/22 Unknown Rx tabs vitamin B complex 1 tab PO DAILY 09/29/22 09/29/22 Unknown History flash glucose scanning reader #1 ea 10/05/22 Unknown Rx (FreeStyle Elli 2 [place]) flash glucose sensor ([employer]Style #6 ea 10/05/22 Unknown Rx Elli 2 Sensor kit) budesonide-formoterol HFA 80 2 inh inhalation BID lungs & 10/14/22 Unknown Rx mcg-4.5 mcg/actuation aerosol breathing 30 days #10.2 grams inhaler (Symbicort) metoprolol tartrate 50 mg tablet 50 mg PO BID blood pressure 30 10/21/22 Unknown Rx days #60 tabs potassium chloride 20 mEq 20 meq PO DAILY #90 tabs 10/21/22 Unknown Rx tablet,extended release(part/cryst) (Klor-Con M) metoclopramide HCl 10 mg tablet 10 mg PO TID PRN nausea and 11/02/22 Unknown Rx (Reglan) vomiting #90 tabs atorvastatin 40 mg tablet 40 mg PO BID 11/06/22 11/06/22 History ergocalciferol (vitamin D2) 1,250 See Rx Instructions .Route .COMPLEX 11/06/22 11/06/22 Unknown History mcg (50,000 unit) capsule (Vitamin D2) insulin glargine 100 unit/mL (3 14 unit SUBCUT DAILY 11/06/22 11/06/22 11/06/22 History mL) subcutaneous pen (Basaglar KwikPen U-100 Insulin) pantoprazole 40 mg tablet,delayed 40 mg PO DAILY 11/06/22 11/06/22 11/06/22 History release prazosin 1 mg capsule 1 mg PO DAILY 11/06/22 11/06/22 11/06/22 History Allergies Allergy/AdvReac Type Severity Reaction Status Date / Time Influenza Virus Vaccines Allergy Severe ADR-Hyperte Verified 11/06/22 15:09 nsion Penicillins Allergy ALGY-Anaphy Verified 11/06/22 15:09 laxis cillins Allergy ALGY-Anaphy Uncoded 09/29/22 13:06 laxis PFSH Acute PFSH: Medical History Abnormal abdominal CT scan Acute non-ST segment elevation myocardial infarction (NSTEMI) following previous myocardial infarction Allergic rhinitis due to allergen Anemia, chronic renal failure Anemia, iron deficiency Atopic dermatitis and related condition Bilateral lower extremity edema CAD (coronary artery disease) remote CABG, NSTEMI, Stents 07/2021 Cellulitis of right lower leg CHF (congestive heart failure) Chronic nausea CKD stage 4 due to type 2 diabetes mellitus COPD (chronic obstructive pulmonary disease) Diabetes mellitus, type II Elevated uric acid in blood Essential hypertension Gout Hypercholesterolemia Inflammatory monoarthritis of right wrist Ischemic cardiomyopathy ORA on CPAP Postprandial abdominal bloating Sinus node dysfunction Surgical History History of appendectomy History of coronary artery stent placement Hx of CABG Family History Father Cancer Other Diabetes Social History Smoking and tobacco status: former smoker Quit status (tobacco): has quit using tobacco Year quit tobacco: June 2021 Former quit date comment: 1.5ppd x 57years Alcohol intake: current Alcohol intake frequency: holidays/special occasions only Alcohol type: beer Desire information about substance/drug rehabilitation?: No Caregiver/support person: No Lives independently: Yes Household members: spouse Marital status: Number of children: 2 service: No Current occupational status: retired and disabled Current gender identity: Male Vitals/I&O/Wt Last Vital Signs Temp 97.5 F L 11/06/22 11:29 Pulse 71 11/06/22 14:53 Resp 16 11/06/22 14:53 BP 153/37 11/06/22 14:53 Pulse Ox 96 11/06/22 14:53 O2 Del Method 11/06/22 14:53 Weight last 48 hrs Weight 76.204 kg Physical Exam Const: COMMON NORMALS: no acute distress and patient oriented x3 EXAM LIMITATIONS: altered mental status HENMT: COMMON NORMALS: normocephalic HEAD & SCALP: normocephalic Eye: COMMON NORMALS: Equal, round and reactive pupils present Neck/C-Spine: COMMON NORMALS: no JVD Chest: COMMONS NORMALS: normal inspection of the chest Resp: COMMON NORMALS: normal respiratory effort, No retractions, No use of accessory muscles and clear to auscultation bilaterally AUSCULTATION: clear to auscultation bilaterally Cardio: COMMON NORMALS: regular rate, regular rhythm, S1 normal heart sound present and S2 normal heart sound present RATE: regular rate RHYTHM: regular rhythm HEART SOUNDS: S1 normal heart sound present and S2 normal heart sound present GI: COMMON NORMALS: Normal to inspection, nondistended, normoactive bowel sounds present and Soft to palpation PALPATION: Yes Soft to palpation and Yes No hepatosplenomegaly present Extremity: COMMON NORMALS: capillary refill normal, no calf tenderness and no pedal edema Neuro: COMMON NORMALS: patient oriented x3, CN's II-XII intact bilaterally, moves all extremities and no focal motor deficits Psych: COMMON NORMALS: mental status grossly normal Data 11/06/22 12:05 11/06/22 12:05 A&P Assessment and plan (1) Uremia: (2) GI bleed: (3) Anemia: (4) MARCELO (acute kidney injury): (5) CKD stage 4 due to type 2 diabetes mellitus: (6) Essential hypertension: (7) Diabetes mellitus, type II: Qualifiers: Diabetes mellitus watermaster insulin use: without watermaster use Diabetes mellitus complication status: with hyperglycemia Qualified Code(s): E11.65 - Type 2 diabetes mellitus with hyperglycemia (8) CAD (coronary artery disease): (9) CHF (congestive heart failure): (10) NSTEMI (non-ST elevated myocardial infarction): Plan GI bleed -During his last hospitalization there was concern for slow GI bleed, was discharged on Protonix, Carafate with outpatient follow-up with general surgery, however patient missed appointment -BUN 92, hemoglobin 8.1, Hemoccult stool positive in the emergency room, no hemodynamic compromise -Plan -Clear liquids -N.p.o. midnight -Monitor hemodynamics -Monitor for bloody black stools -Protonix 40 IV twice daily -Continue Carafate -Monitor hemoglobin every 6 hours -Iron studies, will consider iron replacement -General surgery consulted for EGD -Full code -SCDs for DVT prophylaxis Uremia -Likely combination of dehydration, GI bleed MARCELO on CKD stage IV, gentle IV hydration History of ischemic cardiomyopathy EF of 25 to 30%, -Will avoid fluid overload gentle IV hydration -Looks a bit dehydrated Non-ST evaluation [place] -Likely type II -Likely secondary to dehydration, anemia -Serial EKGs, serial troponins, telemetry monitoring Type 2 diabetes mellitus Continue Levemir Continue low-dose sliding scale Frequent PVCs with bradycardia -Admit to cardiac stepdown unit -Hold beta-felicitas -Monitor heart rate -Atropine as needed Attestations Medical Necessity Statement*: Patient requires hospitalization, inpatient, greater than 2 minutes, for GI bleed, anemia, NSTEMI, uremia Coding Level of Care Code Acute Code for Chg Fwd Diagnoses Uremia N19 GI bleed K92.2 Anemia D64.9 MARCELO (acute kidney injury) N17.9 CKD stage 4 due to type 2 diabetes mellitus E11.22; N18.4 Essential hypertension I10 Diabetes mellitus, type II E11.65 Diabetes mellitus [facility] insulin use: without watermaster use Diabetes mellitus complication status: with hyperglycemia CAD (coronary artery disease) I25.10 CHF (congestive heart failure) I50.9 NSTEMI (non-ST elevated myocardial infarction) I21.4
[2022-11-06 15:35] LABS: INR 1.14 (0.8-1.2)
[2022-11-06 15:39] LABS: Lactic Sepsis W/Reflex 0.8 mmol/L (0.5-2.2)
[2022-11-06 15:45] LABS: Troponin 5 2HR Delta -10.4 ABS# (0-10)
[2022-11-06 15:46] LABS: Troponin 5 2HR 101.6 ng/L (0-15)
[2022-11-06 16:07] LABS: Ferritin 175 ng/mL (30-400); Iron 66 ug/dL (59-158); Percent Saturation 23.3 % (20-50); Total Iron Binding Capacity 283 mcg/dl; Unsaturated Iron Binding 217 ug/dL (112-347); Vitamin B12 414 pg/mL (232-1245)
--- NOTE | 2022-11-06 16:38 | P.CONIM_ITS ---
Providers/Reason For Consult Consulting Physician/Specialty*: Dr. Juan Rene, DO/General surgery Reason for Consult*: Abdominal pain, iron deficiency anemia Attending Physician: Dean Danielle MD Primary Care Provider: Donavan Clemons MD History of Present Illness History of Present Illness Luis Alfredo Thompson is a 67 year old male With a cardiac history who presented to the hospital with abdominal pain. He was scheduled to see me for an EGD but he missed the appointment. He denies any nausea, emesis, diarrhea, constipation, hematochezia and/or melena. He reports that he gets epigastric pain that is dull and constant. Eating can make the pain worse. Nothing makes pain better. Pain does not radiate Review of Systems General: Reports: 10 or more systems reviewed and unremarkable except in HPI and below Medications/Allergies Home Medications Medication Instructions Recorded Confirmed Last Taken Type ascorbic acid (vitamin C) 500 mg 500 mg PO [employer] #100 tabs 08/22/21 11/06/22 11/06/22 Rx tablet (Vitamin C) aspirin 81 mg tablet,delayed 81 mg PO QA 90 days #90 tabs 08/22/21 11/06/22 11/06/22 Rx release vitamin E 268 mg (400 unit) capsule 400 unit PO [employer] #90 caps 08/22/21 11/06/22 11/06/22 Rx nitroglycerin 0.4 mg sublingual 0.4 mg sublingual Q5M PRN chest 05/01/22 11/06/22 Unknown Rx tablet (Nitrostat) pain #25 tabs hydralazine 50 mg tablet 50 mg PO TID blood Pressure #270 06/11/22 11/06/22 11/06/22 Rx tabs triamcinolone acetonide 0.025 % 1 applic topical DAILY #454 grams 06/11/22 11/06/22 11/06/22 Rx topical cream ondansetron 4 mg disintegrating 4 mg PO Q6H PRN nausea and 07/07/22 11/06/22 Unknown Rx tablet vomiting #30 tabs loratadine 10 mg tablet 10 mg PO DAILY 08/25/22 11/06/22 11/06/22 History simethicone 250 mg capsule 250 mg PO BID PRN Gastrointestinal 08/25/22 11/06/22 Unknown History Spasms Or Cramping insulin aspart U-100 100 unit/mL See Rx Instructions .Route 08/31/22 11/06/22 11/06/22 Rx (3 mL) subcutaneous pen (Novolog .COMPLEX #15 mL FlexPen U-100 Insulin aspart) One touch test strips #3 ea 09/01/22 11/06/22 Unknown Rx isosorbide mononitrate 30 mg 30 mg PO BID chest pain 90 days 09/07/22 11/06/22 11/06/22 Rx tablet,extended release 24 hr #180 tabs ferrous sulfate 325 mg (65 mg 325 mg PO BIDWM iron deficiency 09/11/22 11/06/22 11/06/22 History iron) tablet,delayed release blood-glucose meter,continuous #1 ea 09/14/22 11/06/22 Unknown Rx (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) blood-glucose sensor (Dexcom G6 #9 ea 09/14/22 11/06/22 Unknown Rx Sensor device) blood-glucose transmitter ([employer] #1 ea 09/14/22 11/06/22 Unknown Rx G6 Transmitter device) bumetanide 1 mg tablet 1 mg PO Q12H Heart failure #60 tabs 09/14/22 11/06/22 11/06/22 Rx allopurinol 100 mg tablet 100 mg PO DAILY gout 30 days #30 09/22/22 11/06/22 11/06/22 Rx tabs vitamin B complex 1 tab PO DAILY 09/29/22 11/06/22 11/06/22 History flash glucose scanning reader #1 ea 10/05/22 11/06/22 Unknown Rx (FreeStyle Elli 2 [place]) flash glucose sensor (FreeStyle #6 ea 10/05/22 11/06/22 Unknown Rx Elli 2 Sensor kit) budesonide-formoterol HFA 80 2 inh inhalation BID lungs & 10/14/22 11/06/22 11/06/22 Rx mcg-4.5 mcg/actuation aerosol breathing 30 days #10.2 grams inhaler (Symbicort) metoprolol tartrate 50 mg tablet 50 mg PO BID blood pressure 30 10/21/22 11/06/22 11/06/22 Rx days #60 tabs potassium chloride 20 mEq 20 meq PO DAILY #90 tabs 10/21/22 11/06/22 11/06/22 Rx tablet,extended release(part/cryst) (Klor-Con M) metoclopramide HCl 10 mg tablet 10 mg PO TID PRN nausea and 11/02/22 11/06/22 Unknown Rx (Reglan) vomiting #90 tabs atorvastatin 40 mg tablet 40 mg PO BID 11/06/22 11/06/22 11/06/22 History ergocalciferol (vitamin D2) 1,250 See Rx Instructions .Route .COMPLEX 11/06/22 11/06/22 Unknown History mcg (50,000 unit) capsule (Vitamin D2) insulin glargine 100 unit/mL (3 14 unit SUBCUT DAILY 11/06/22 11/06/22 11/06/22 History mL) subcutaneous pen (Basaglar KwikPen U-100 Insulin) pantoprazole 40 mg tablet,delayed 40 mg PO DAILY 11/06/22 11/06/22 11/06/22 History release prazosin 1 mg capsule 1 mg PO DAILY 11/06/22 11/06/22 11/06/22 History Allergies Allergy/AdvReac Type Severity Reaction Status Date / Time Influenza Virus Vaccines Allergy Severe ADR-Hyperte Verified 11/06/22 15:09 nsion Penicillins Allergy ALGY-Anaphy Verified 11/06/22 15:09 laxis cillins Allergy ALGY-Anaphy Uncoded 09/29/22 13:06 laxis PFSH Acute PFSH: Medical History Abnormal abdominal CT scan Acute non-ST segment elevation myocardial infarction (NSTEMI) following previous myocardial infarction Allergic rhinitis due to allergen Anemia, chronic renal failure Anemia, iron deficiency Atopic dermatitis and related condition Bilateral lower extremity edema CAD (coronary artery disease) remote CABG, NSTEMI, Stents 07/2021 Cellulitis of right lower leg CHF (congestive heart failure) Chronic nausea CKD stage 4 due to type 2 diabetes mellitus COPD (chronic obstructive pulmonary disease) Diabetes mellitus, type II Elevated uric acid in blood Essential hypertension Gout Hypercholesterolemia Inflammatory monoarthritis of right wrist Ischemic cardiomyopathy ORA on CPAP Postprandial abdominal bloating Sinus node dysfunction Surgical History History of appendectomy History of coronary artery stent placement Hx of CABG Family History Father Cancer Other Diabetes Social History Smoking and tobacco status: former smoker Quit status (tobacco): has quit using tobacco Year quit tobacco: June 2021 Former quit date comment: 1.5ppd x 57years Alcohol intake: current Alcohol intake frequency: holidays/special occasions only Alcohol type: beer Desire information about substance/drug rehabilitation?: No Caregiver/support person: No Lives independently: Yes Household members: spouse Marital status: Number of children: 2 service: No Current occupational status: retired and disabled Current gender identity: Male Vitals/I&O/Wt Last Vital Signs Temp 97.5 F L 11/06/22 11:29 Pulse 71 11/06/22 15:52 Resp 16 11/06/22 15:52 BP 153/37 11/06/22 15:52 Pulse Ox 96 11/06/22 15:52 O2 Del Method 11/06/22 14:53 Weight last 48 hrs Weight 168 lb Physical Exam Narrative: General : Patient is well developed , no acute distress, oriented x3 Head : Normal cephalic, a-traumatic. Ears : Pinnae and external canal are normal. Hearing is normal. Eyes : PERRLA, Sclera and injection are normal. No conjunctival discharge. Nose : Mucous membranes are without erythema. Throat : buccal mucosa is normal, gums are without significant recession or hypertrophy. Lungs : Equal chest rise bilaterally, no use of accessory muscles, trachea is midline. Cor : Rate and rhythm are normal. Abdomen : Soft, ND, NT, no g/r/m Extremities : No edema, no cyanosis or clubbing, dorsalis pedis pulses are present bilaterally, non-tender to palpation of calves. Upper extremities are normal bilaterally. Back : non-tender to palpation, no CVA tenderness. Neuro : CN II - XII intact, Upper and lower extremities have equal and full strength. Data 11/06/22 12:05 11/06/22 12:05 A&P Assessment and plan (1) Anemia: (2) GI bleed: Plan EGD The risks and benefits of the procedure, including bleeding, infection, intestinal perforation requiring surgery, missed lesion were explained to the patient. The patient is understanding of the risks and wishes to proceed. Coding Level of Care Code Acute Code for [facility] Fwd Diagnoses Anemia D64.9 GI bleed K92.2
[2022-11-06 16:49] LABS: Estmated Average Glucose 163; Hemoglobin A1C 7.3 % (4.0-6.0)
[2022-11-06 16:50] LABS: Hematocrit 28.2 % (42.0-52.0); Hemoglobin 8.3 g/dL (11.7-16.6)
[2022-11-06 17:06] LABS: Folate Level > 20.0 ng/mL (4.5-32.2)
[2022-11-06 17:17] LABS: Glucose Point of Care 215 mg/dL (70-110)
[2022-11-06] MEDS: ferrous sulfate EC 325 mg Tablet PO (17:45)
[2022-11-06] MEDS: isosorbide mononitrate ER 30 mg Tablet PO (17:45)
[2022-11-06] MEDS: sucralfate 1 gm Tablet PO (17:45)
[2022-11-06] MEDS: sodium chloride 0.9% 1,000 ML 50 ML IV (17:45)
[2022-11-06] MEDS: prazosin 1 mg Capsule PO (17:45)
[2022-11-06] MEDS: pantoprazole 40 mg SDV IVP (17:45)
[2022-11-06] MEDS: insulin lispro 100 unit/1 mL SUBCUT (18:02)
--- NOTE | 2022-11-06 18:40 | ECG_ITS ---
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 Measurements Intervals [place] Rate: 65 P: 83 MA: 179 QRS: -6 QRSD: 132 T: 262 QT: 449 QTc: 468 Interpretive Statements SINUS RHYTHM WITH FREQUENT VENTRICULAR PREMATURE COMPLEXES IN A BIGEMINAL PATTERN INTRAVENTRICULAR CONDUCTION DELAY [130+ ms QRS DURATION] Compared to ECG 11/06/2022 15:09:19 Intraventricular conduction delay now present T-wave abnormality no longer present Possible ischemia no longer present Electronically Signed On 11-07-2022 7:13:25 CDT by Francis Israel M.D. [id number]
[2022-11-06 21:59] LABS: Hematocrit 26.7 % (42.0-52.0); Hemoglobin 7.8 g/dL (11.7-16.6)
[2022-11-07] VITALS (32 sets, daily range): BP systolic 121–190; BP diastolic 49–84; PULSE 45–78; RESP 12–31; TEMP 36.5–37; O2SAT 89–100
[2022-11-07] MEDS: pantoprazole 40 mg SDV IVP (05:14)
--- NOTE | 2022-11-07 05:23 | PC.NURSE ---
This RN has followed SN Bharti during assessments and medication administration. Student used all proper patient identifiers. This RN agrees and verifies all documentation related to these assessments and medication administrations.
[2022-11-07 05:24] LABS: Basophils % 0.4 %; Eosinophils # 0.3 10^3/uL (0.0-0.8); Eosinophils % 3.7 %; Hematocrit 27.7 % (42.0-52.0); Hemoglobin 8.2 g/dL (11.7-16.6); Lymphocytes # 1.3 10^3/uL (0.8-4.8); Lymphocytes % 19.1 %; Mean Corpuscular HGB Conc 29.6 g/dL (30.0-36.0); Mean Corpuscular Hemoglobin 28.8 pg (28.0-34.0); Mean Corpuscular Volume 97.2 fl (80-94); Mean Platelet Volume 11.8 fL (7.4-10.4); Monocytes # 0.6 10^3/uL (0.2-0.9); Monocytes % 8.7 %; Neutrophils # 4.63 10^3/uL (1.8-7.7); Neutrophils % 67.8 %; Nucleated Red Blood Cells % 0 %; Platelet Count 192 10^3/cmm (130-400); Red Blood Count 2.85 10^6/uL (4.1-5.3); Red Cell Distribution Width 14.9 % (12.1-15.1); White Blood Count 6.8 10^3/uL (4.0-10.0)
[2022-11-07 05:44] LABS: Alanine Aminotransferase 26 U/L (0-41); Albumin Level 3.4 g/dL (3.5-5.2); Alkaline Phosphatase 107 U/L (40-130); Anion Gap 17.7 (5-19); Aspartate Amino Transferase 18 U/L (0-40); Calcium 8.6 mg/dL (8.5-10.5); Carbon Dioxide 17 mmol/L (22-29); Chloride 113 mmol/L (98-107); Globulin 2.1 g/dL (1.3-4.6); Glomerular Filtration Rate 16.4 mL/min (90-130); Glucose 107 mg/dL (65-115); Osmolality Calculated 324 mOsm/kg (285-295); Phosphorus 4.8 mg/dL (2.5-4.5); Potassium 3.7 mmol/L (3.5-5.1); Sodium 144 mmol/L (136-145); Total Bilirubin 0.3 mg/dL (0.15-1.2); Total Protein 5.5 g/dL (6.6-8.7)
[2022-11-07 05:54] LABS: Blood Urea Nitrogen 83 mg/dL (8-23)
--- NOTE | 2022-11-07 06:21 | PC.NURSE ---
Patient refused, has lifestyle carlotta on R upper arm with monitor at bedside. BS 106
--- NOTE | 2022-11-07 07:31 | PC.NURSE ---
Patient to endo with RT. Patient was able to ambulate to cart without any problems. Patient's ID and allergy band present and verified.
--- NOTE | 2022-11-07 07:42 | P.ANESASSM_ITS ---
Pre-Anesthetic Assessment Height/Weight: Height 1.63 m Weight 76.204 kg Temp Pulse Resp BP Pulse Ox O2 Del Method O2 Flow Rate 98.4 F 61 18 122/56 93 2 11/07/22 04:00 11/07/22 04:00 11/07/22 04:00 11/07/22 04:00 11/07/22 04:00 11/07/22 04:00 11/07/22 04:00 Preop Diagnosis: NSTEMI Operation Date: 11/07/22 09:00 Proposed Procedures p EGD(Not Applicable) - Juan Rene DO Familial anesthetic complications: none Was Beta Iris taken within 24 hours: Yes Was Clonidine taken within 24 hours: N/A Last Intake: 18:00 Social Alcohol (Social) and No tobacco (quit 2 years ago, previously smoked 1-2 ppd) Exam alert, oriented x 3 and clear to auscultation bilaterally Airway Submandibular: within normal limits Cervical ROM: within normal limits Mallampati: Class III Dentition: chipped Comments: Comments: Several missing, poor dentition History/ROS No significant history except as noted and No significant complaints Pulmonary Chronic Obstructive Pulmonary Disease, Cough, Exertional Dyspnea, Sleep Apnea and Shortness of Breath 2.5 L O2 at home CV/HEM Anemia, Stable Angina (Hasn't used nitro tabs since July 2022, ), Arrythmia, Coronary Artery Disease, Congestive Heart Failure, Hypertension and Myocardial Infarction (9 stents placed total, last stent placed in November 2021, saw criminal justice program director this stay, no changes per patient) CONCLUSIONS ?The ventricle is normal in size.? There is akinesis of the mid ?anterior wall with dyskinesis of the apex suggesting an old LAD ?distribution myocardial infarction.? The remainder the ventricle ?contracts normally.? The ejection fraction is about 35%.? ?Diastolic function was not evaluated. ?Normal right ventricular size and systolic function. Mild ?pulmonary hypertension, RVSP 39.6 mmHg. ?Mildly increased right atrial size. ?Moderately increased left atrial size. ?Structurally normal mitral valve. Mild mitral valve ?regurgitation. ?The previous study, done 4 months ago, was a limited 2D study ?only.? The left ventricular function was similar at that time. Chronic Renal Failure (Stage 3, no dialysis) Hepatic None reported GI Gastroesophageal Reflux Disease and Peptic Ulcer Disease GI bleed Metabolic Diabetes Mellitus Musc/skel Gout Neuropsych None reported Anesthetic Plan ASA status: 4 Anesthesia: Anesthesia Evaluation, General and MAC Risk of > 500 ml blood loss (7ml/kg in children): No Medications/Allergies Home Medications Medication Instructions Recorded Confirmed Last Taken Type ascorbic acid (vitamin C) 500 mg 500 mg PO [facility] health #100 tabs 08/22/21 11/06/22 11/06/22 Rx tablet (Vitamin C) aspirin 81 mg tablet,delayed 81 mg PO QAM 90 days #90 tabs 08/22/21 11/06/22 11/06/22 Rx release vitamin E 268 mg (400 unit) capsule 400 unit PO [facility] health #90 caps 08/22/21 11/06/22 11/06/22 Rx nitroglycerin 0.4 mg sublingual 0.4 mg sublingual Q5M PRN chest 05/01/22 11/06/22 Unknown Rx tablet (Nitrostat) pain #25 tabs hydralazine 50 mg tablet 50 mg PO TID blood Pressure #270 06/11/22 11/06/22 11/06/22 Rx tabs triamcinolone acetonide 0.025 % 1 applic topical DAILY #454 grams 06/11/22 11/06/22 11/06/22 Rx topical cream ondansetron 4 mg disintegrating 4 mg PO Q6H PRN nausea and 07/07/22 11/06/22 Unknown Rx tablet vomiting #30 tabs loratadine 10 mg tablet 10 mg PO DAILY 08/25/22 11/06/22 11/06/22 History simethicone 250 mg capsule 250 mg PO BID PRN Gastrointestinal 08/25/22 11/06/22 Unknown History Spasms Or Cramping insulin aspart U-100 100 unit/mL See Rx Instructions .Route 08/31/22 11/06/22 11/06/22 Rx (3 mL) subcutaneous pen (Novolog .COMPLEX #15 mL FlexPen U-100 Insulin aspart) One touch test strips #3 ea 09/01/22 11/06/22 Unknown Rx isosorbide mononitrate 30 mg 30 mg PO BID chest pain 90 days 09/07/22 11/06/22 11/06/22 Rx tablet,extended release 24 hr #180 tabs ferrous sulfate 325 mg (65 mg 325 mg PO BIDWM iron deficiency 09/11/22 11/06/22 11/06/22 History iron) tablet,delayed release blood-glucose meter,continuous #1 ea 09/14/22 11/06/22 Unknown Rx (Dexcom G6 Rubber Extrusion Machine Operator) blood-glucose sensor (Dexcom G6 #9 ea 09/14/22 11/06/22 Unknown Rx Sensor device) blood-glucose transmitter (Dexcom #1 ea 09/14/22 11/06/22 Unknown Rx G6 Transmitter device) bumetanide 1 mg tablet 1 mg PO Q12H Heart failure #60 tabs 09/14/22 11/06/22 11/06/22 Rx allopurinol 100 mg tablet 100 mg PO DAILY gout 30 days #30 09/22/22 11/06/22 11/06/22 Rx tabs vitamin B complex 1 tab PO DAILY 09/29/22 11/06/22 11/06/22 History flash glucose scanning reader #1 ea 10/05/22 11/06/22 Unknown Rx (FreeStyle Elli 2 [place]) flash glucose sensor (FreeStyle #6 ea 10/05/22 11/06/22 Unknown Rx Elli 2 Sensor kit) budesonide-formoterol HFA 80 2 inh inhalation BID lungs & 10/14/22 11/06/22 11/06/22 Rx mcg-4.5 mcg/actuation aerosol breathing 30 days #10.2 grams inhaler (Symbicort) metoprolol tartrate 50 mg tablet 50 mg PO BID blood pressure 30 10/21/22 11/06/22 11/06/22 Rx days #60 tabs potassium chloride 20 mEq 20 meq PO DAILY #90 tabs 10/21/22 11/06/22 11/06/22 Rx tablet,extended release(part/cryst) (Klor-Con M) metoclopramide HCl 10 mg tablet 10 mg PO TID PRN nausea and 11/02/22 11/06/22 Unknown Rx (Reglan) vomiting #90 tabs atorvastatin 40 mg tablet 40 mg PO BID 11/06/22 11/06/22 11/06/22 History ergocalciferol (vitamin D2) 1,250 See Rx Instructions .Route .COMPLEX 11/06/22 11/06/22 Unknown History mcg (50,000 unit) capsule (Vitamin D2) insulin glargine 100 unit/mL (3 14 unit SUBCUT DAILY 11/06/22 11/06/22 11/06/22 History mL) subcutaneous pen (Basaglar KwikPen U-100 Insulin) pantoprazole 40 mg tablet,delayed 40 mg PO DAILY 11/06/22 11/06/22 11/06/22 History release prazosin 1 mg capsule 1 mg PO DAILY 11/06/22 11/06/22 11/06/22 History Allergies Allergy/AdvReac Type Severity Reaction Status Date / Time Influenza Virus Vaccines Allergy Severe ADR-Hyperte Verified 11/06/22 15:09 nsion Penicillins Allergy ALGY-Anaphy Verified 11/06/22 15:09 laxis cillins Allergy ALGY-Anaphy Uncoded 09/29/22 13:06 laxis Current Medications Generic Name Dose Route Start Last Admin Trade Name Freq PRN Reason Stop Dose Admin Ferrous Sulfate 325 mg 11/06/22 18:00 11/07/22 07:32 Ferrous Sulfate Ec 325 Mg Tablet PO Not Given BIDWM SUNSHINE Sodium Chloride 1,000 mls @ 50 mls/hr 11/06/22 16:18 11/06/22 17:45 Sodium Chloride 0.9% IV 50 mls/hr .Q20H SUNSHINE Administration Insulin Human Lispro 0 unit 11/06/22 18:00 11/07/22 07:33 Insulin Lispro 100 Unit/1 Ml SUBCUT Not Given TIDWM SUNSHINE Protocol Isosorbide Mononitrate 30 mg 11/06/22 18:00 11/06/22 17:45 Isosorbide Mononitrate Er 30 Mg Tablet PO 30 mg BID SUNSHINE Administration Pantoprazole Sodium 40 mg 11/06/22 17:00 11/07/22 05:14 Pantoprazole 40 Mg Sdv IVP 40 mg Q12H SUNSHINE Administration Prazosin HCl 1 mg 11/06/22 18:00 11/06/22 17:45 Prazosin 1 Mg Capsule PO 1 mg BID SUNSHINE Administration Sucralfate 1 gm 11/06/22 18:00 11/07/22 03:42 Sucralfate 1 Gm Tablet PO Not Given Q12H SUNSHINE PFSH Anesthesia Medical History Abnormal abdominal CT scan Acute non-ST segment elevation myocardial infarction (NSTEMI) following previous myocardial infarction Allergic rhinitis due to allergen Anemia, chronic renal failure Anemia, iron deficiency Atopic dermatitis and related condition Bilateral lower extremity edema CAD (coronary artery disease) remote CABG, NSTEMI, Stents 07/2021 Cellulitis of right lower leg CHF (congestive heart failure) Chronic nausea CKD stage 4 due to type 2 diabetes mellitus COPD (chronic obstructive pulmonary disease) Diabetes mellitus, type II Elevated uric acid in blood Essential hypertension Gout Hypercholesterolemia Inflammatory monoarthritis of right wrist Ischemic cardiomyopathy ORA on CPAP Postprandial abdominal bloating Sinus node dysfunction Surgical History History of appendectomy History of coronary artery stent placement Hx of CABG Family History Father Cancer Other Diabetes Social History Smoking and tobacco status: former smoker Quit status (tobacco): has quit using tobacco Year quit tobacco: June 2021 Former quit date comment: 1.5ppd x 57years Alcohol intake: current Alcohol intake frequency: holidays/special occasions only Alcohol type: beer Desire information about substance/drug rehabilitation?: No Caregiver/support person: No Lives independently: Yes Household members: spouse Marital status: Number of children: 2 service: No Current occupational status: retired and disabled Current gender identity: Male Data Anesthesia 11/07/22 05:09 11/07/22 05:09 Short CBC 11/06/22 11/06/22 11/06/22 Range/Units 12:05 16:43 21:54 WBC 6.8 (4.0-10.0) 10^3/uL Hgb 8.1 L 8.3 L 7.8 L (11.7-16.6) g/dL Hct 27.8 L 28.2 L 26.7 L (42.0-52.0) % MCV 95.5 H (80-94) fl Plt Count 180 (130-400) 10^3/cmm Neut % (Auto) 75.4 % Neut # (Auto) 5.10 (1.8-7.7) 10^3/uL 11/07/22 Range/Units 05:09 WBC 6.8 (4.0-10.0) 10^3/uL Hgb 8.2 L (11.7-16.6) g/dL Hct 27.7 L (42.0-52.0) % MCV 97.2 H (80-94) fl Plt Count 192 (130-400) 10^3/cmm Neut % (Auto) 67.8 % Neut # (Auto) 4.63 (1.8-7.7) 10^3/uL BMP 11/06/22 11/07/22 12:05 05:09 Sodium 141 144 Potassium 4.5 3.7 Chloride 107 113 H Carbon Dioxide 18 L 17 L BUN 92 H* 83 H* Creatinine 3.9 H 3.7 H Glucose 268 H 107 Calcium 8.9 8.6 Cardiac Enzymes 11/06/22 11/06/22 11/06/22 Range/Units 12:00 12:04 15:14 Troponin T Baseline 112 H* (0-15) ng/L Troponin T 120 Minute 101.6 H (0-15) ng/L Delta Troponin T -10.4 L (0-10) ABS# Troponin T Hi Sens 6Hr (0-15) ng/L Troponin T Hi Sens 6Hr Delta (0-12) ng/L NT-Pro-B Natriuret Pep 97741 H (0-125) pg/mL 11/06/22 Range/Units 18:15 Troponin T Baseline (0-15) ng/L Troponin T 120 Minute (0-15) ng/L Delta Troponin T (0-10) ABS# Troponin T Hi Sens 6Hr 93.00 H (0-15) ng/L Troponin T Hi Sens 6Hr Delta -19.00 L (0-12) ng/L NT-Pro-B Natriuret Pep (0-125) pg/mL Liver Function 11/06/22 11/07/22 Range/Units 12:05 05:09 Total Bilirubin 0.3 0.3 (0.15-1.2) mg/dL AST 21 18 (0-40) U/L ALT 29 26 (0-41) U/L Alkaline Phosphatase 114 107 (40-130) U/L Albumin 3.8 3.4 L (3.5-5.2) g/dL Urine 11/06/22 Range/Units 12:36 Urine Color Yellow (Yellow) Urine Appearance Clear (CLEAR) Urine pH 5 (5-7) Ur Specific [place] 1.010 (1.005-1.030) Urine Protein 1+ H (Negative) Urine Glucose (UA) Norm (Normal) Urine Ketones Negative (Negative) Urine Nitrate Negative (Negative) Urine Bilirubin Neg (Negative) Ur Leukocyte Esterase Negative (Negative) Urine RBC Rare (0-2) /hpf Urine WBC 0-4 H (0-5) /hpf Coags 11/06/22 12:00 PT 15.00 H INR 1.14 Cardiac Studies: Echocardiogram 08/25/22 Echocardiogram Limited Views 08/05/21 Sestamibi Stress Test (Cardiology) 05/15 Cardiac Event Monitor 07/02/21
[2022-11-07] MEDS: sodium chloride 0.9% 1,000 ML 30 ML IV (07:45)
--- NOTE | 2022-11-07 08:03 | W.PM.OPSUD ---
Surgery/Procedure H&P Update DATE OF PROCEDURE: November 07, 2022 DATE H&P PERFORMED: 11/06/22 PREOP DIAGNOSIS: Fe deficiency anemia PLANNED PROCEDURE: Operation Date: 11/07/22 09:00 Proposed Procedures p EGD(Not Applicable) - Juan Rene DO
--- NOTE | 2022-11-07 08:35 | PC.NURSE ---
Patient returned to [facility] via cart from endo. Patient ambulated to unit bed and placed on monitor.
--- NOTE | 2022-11-07 09:16 | ANE.PACU2 ---
Inpatient post-anesthesia follow up: Airway intact: Yes Vital signs: Temperature 97.7 F Pulse Rate 45 Respiratory Rate 14 Blood Pressure 157/51 Pulse Oximetry 100 Oxygen Delivery Me thod Nasal Cannula Oxygen Flow Rate 7 Fraction of Inspir ed Oxygen Hydration adequate: Yes Nausea and vomiting: No Pain level: 1 Mental status: Baseline
[2022-11-07 09:21] LABS: Glucose Point of Care 141 mg/dL (70-110)
[2022-11-07] MEDS: pantoprazole DR 40 mg Tablet PO (10:08)
[2022-11-07] MEDS: insulin glargine 100 units/1 mL 10 UNIT SUBCUT (10:09)
--- NOTE | 2022-11-07 10:43 | PM.DCS ---
Discharge Providers Date of Admission: 11/06/22 14:54 Date of Discharge: November 07, 2022 Attending Provider at Admission: Dean Danielle MD Attending Provider at Discharge: Dean Danielle MD Primary Care Provider: Donavan Clemons MD Diagnoses at Discharge Discharge Diagnosis (1) Anemia: Status: Acute (2) GI bleed: Status: Acute Reason for Visit Reason for Visit: sob, heart pt Hospital Course Hospital Course Luis Alfredo Thompson is a 67 year old male with a past medical history of ischemic cardiomyopathy LVEF 25 to 30%, history of CKD stage IV, history of NSTEMI, with history of coronary stent SVG to PDA, history of balloon angioplasty of in-stent restenosis of LAD, recent history of coronary angiogram with no new changes, history of iron deficiency anemia, history of anemia, history of concerns for slow GI bleed, type 2 diabetes mellitus who presents to [facility] for complaints of abdominal pain, and shortness of breath.? Patient tells me that he here in the emergency room, as he has been noticing that he has had abdominal pain, no reported bloody or black stools, but his Hemoccult stool was positive in the emergency room, no hematemesis, he has been feeling weak and fatigued and tired.? He does report increased shortness of breath, he is taking his Bumex, no significant lower extremity edema.? Denies any chest pain, no palpitations. Patient was admitted to [facility] for concerns for slow GI bleed, Hemoccult stool positive, managed with Protonix, Carafate, no complaints of bloody or black stools on admission and during hospitalization, underwent EGD with no significant findings, overall patient clinically did well, hemodynamically stable. Patient will be discharged with outpatient follow-up with hematology and oncology as outpatient. Likely anemia is multifactorial from chronic kidney disease, there might be a component of production problem with his bone marrow but I will have him follow-up with hematology oncology. Follow-up with primary care as outpatient. Patient had an MARCELO on admission, 3.9, Lasix was held, creatinine improved to 3.7, having good urine output, I would have him hold his Bumex until Wednesday. Hold allopurinol until Wednesday There is also concern for sinus bradycardia during hospitalization, patient was asymptomatic, no bundle branch block, did have frequent PVCs. Discharged on a lower dose of Metroprolol 25 mg twice daily. Follow-up with cardiology. Physical Exam Const: COMMON NORMALS: no acute distress and patient oriented x3 Resp: COMMON NORMALS: normal respiratory effort, No retractions, No use of accessory muscles and clear to auscultation bilaterally AUSCULTATION: clear to auscultation bilaterally Cardio: COMMON NORMALS: regular rate, regular rhythm, S1 normal heart sound present and S2 normal heart sound present RATE: regular rate RHYTHM: regular rhythm HEART SOUNDS: S1 normal heart sound present and S2 normal heart sound present GI: COMMON NORMALS: Normal to inspection, nondistended, normoactive bowel sounds present and non-tender Extremity: COMMON NORMALS: no pedal edema Neuro: COMMON NORMALS: patient oriented x3 Psych: COMMON NORMALS: mental status grossly normal Discharge Data Studies Completed and Pending Completed Studies During Hospitalization Category Date Time Status CT abdomen pelvis wo con [id number] Stat Cat Scan 11/06/22 12:52 Completed XR chest 1V portable [id number] Stat Exams 11/06/22 12:40 Completed Pending at discharge Category Date Time Status Hemoglobin and Hematocrit Q6H Lab 11/07/22 10:18 Ordered Occult Blood Stool [Immunochemical Fecal OCB] Routine Lab 11/06/22 12:57 Uncollected Pathology: Surgical [PTH] Routine Pth 11/07/22 08:17 Ordered Radiology Impressions Chest X-Ray 11/06/22 12:40 IMPRESSION: 1. No acute process identified. 2. Cardiac enlargement unchanged. Abdomen/Pelvis CT 11/06/22 12:52 IMPRESSION: 1. Fat-containing umbilical and supraumbilical hernias. Small amount of fluid and induration along the RIGHT supraumbilical hernia is new from previous. Recommend correlation with epigastric pain. 2. No herniated bowel. 3. Small bilateral pleural effusions RIGHT greater than LEFT. 4. Cardiomegaly. 5. Small amount of perihepatic and perisplenic ascites with body wall anasarca and mesenteric edema. 6. Sigmoid diverticulosis. Laboratory Results WBC 6.8 10^3/uL (4.0-10.0) 11/07/22 05:09 RBC 2.85 10^6/uL (4.1-5.3) L 11/07/22 05:09 Hgb 8.2 g/dL (11.7-16.6) L 11/07/22 05:09 Hct 27.7 % (42.0-52.0) L 11/07/22 05:09 MCV 97.2 fl (80-94) H 11/07/22 05:09 MCH 28.8 pg (28.0-34.0) 11/07/22 05:09 MCHC 29.6 g/dL (30.0-36.0) L 11/07/22 05:09 RDW 14.9 % (12.1-15.1) 11/07/22 05:09 Plt Count 192 10^3/cmm (130-400) 11/07/22 05:09 MPV 11.8 fL (7.4-10.4) H 11/07/22 05:09 Neut % (Auto) 67.8 % 11/07/22 05:09 Lymph % (Auto) 19.1 % 11/07/22 05:09 [place] % (Auto) 8.7 % 11/07/22 05:09 Eos % (Auto) 3.7 % 11/07/22 05:09 Baso % (Auto) 0.4 % 11/07/22 05:09 Neut # (Auto) 4.63 10^3/uL (1.8-7.7) 11/07/22 05:09 Lymph # (Auto) 1.3 10^3/uL (0.8-4.8) 11/07/22 05:09 [place] # (Auto) 0.6 10^3/uL (0.2-0.9) 11/07/22 05:09 Eos # (Auto) 0.3 10^3/uL (0.0-0.8) 11/07/22 05:09 Baso # (Auto) 0.0 10^3/uL (0.0-0.1) 11/07/22 05:09 Nucleated RBC % (auto) 0 % 11/07/22 05:09 Nucleated RBCs # 0.0 /100WBC 11/07/22 05:09 PT 15.00 SECONDS (12.1-14.9) H 11/06/22 12:00 INR 1.14 (0.8-1.2) 11/06/22 12:00 Sodium 144 mmol/L (136-145) 11/07/22 05:09 Potassium 3.7 mmol/L (3.5-5.1) 11/07/22 05:09 Chloride 113 mmol/L (98-107) H 11/07/22 05:09 Carbon Dioxide 17 mmol/L (22-29) L 11/07/22 05:09 Anion Gap 17.7 (5-19) 11/07/22 05:09 BUN 83 mg/dL (8-23) H* 11/07/22 05:09 Creatinine 3.7 mg/dL (0.7-1.2) H 11/07/22 05:09 GFR Calculation 16.4 mL/min (90-130) L 11/07/22 05:09 Glucose 107 mg/dL (65-115) 11/07/22 05:09 POC Glucose 141 mg/dL (70-110) H 11/07/22 09:18 Estimat Average Glucose 163 11/06/22 12:05 Hemoglobin A1c 7.3 % (4.0-6.0) H 11/06/22 12:05 Calculated Osmolality 324 mOsm/kg (285-295) H 11/07/22 05:09 Lactic Acid 0.8 mmol/L (0.5-2.2) 11/06/22 12:00 Calcium 8.6 mg/dL (8.5-10.5) 11/07/22 05:09 Phosphorus 4.8 mg/dL (2.5-4.5) H 11/07/22 05:09 Magnesium 2.0 mg/dL (1.7-2.3) 11/07/22 05:09 Iron 66 ug/dL (59-158) 11/06/22 12:00 TIBC 283 mcg/dl 11/06/22 12:00 % Saturation 23.3 % (20-50) 11/06/22 12:00 Unsat Iron Binding 217 ug/dL (112-347) 11/06/22 12:00 Ferritin 175 ng/mL (30-400) 11/06/22 12:00 Total Bilirubin 0.3 mg/dL (0.15-1.2) 11/07/22 05:09 AST 18 U/L (0-40) 11/07/22 05:09 ALT 26 U/L (0-41) 11/07/22 05:09 Alkaline Phosphatase 107 U/L (40-130) 11/07/22 05:09 Troponin T Baseline 112 ng/L (0-15) H* 11/06/22 12:04 Troponin T 120 Minute 101.6 ng/L (0-15) H 11/06/22 15:14 Delta Troponin T -10.4 ABS# (0-10) L 11/06/22 15:14 Troponin T Hi Sens 6Hr 93.00 ng/L (0-15) H 11/06/22 18:15 Troponin T Hi Sens 6Hr Delta -19.00 ng/L (0-12) L 11/06/22 18:15 NT-Pro-B Natriuret Pep 43611 pg/mL (0-125) H 11/06/22 12:00 Total Protein 5.5 g/dL (6.6-8.7) L 11/07/22 05:09 Albumin 3.4 g/dL (3.5-5.2) L 11/07/22 05:09 Globulin 2.1 g/dL (1.3-4.6) 11/07/22 05:09 Lipase 71 U/L (13-60) H 11/06/22 12:05 Vitamin B12 414 pg/mL (232-1245) 11/06/22 12:00 Folate > 20.0 ng/mL (4.5-32.2) 11/06/22 12:00 TSH 2.30 uIU/mL (0.27-4.20) 11/06/22 12:04 Urine Color Yellow (Yellow) 11/06/22 12:36 Urine Appearance Clear (CLEAR) 11/06/22 12:36 Urine pH 5 (5-7) 11/06/22 12:36 Ur Specific Diamond 1.010 (1.005-1.030) 11/06/22 12:36 Urine Protein 1+ (Negative) H 11/06/22 12:36 Urine Glucose (UA) Norm (Normal) 11/06/22 12:36 Urine Ketones Negative (Negative) 11/06/22 12:36 Urine Blood Neg (Negative) 11/06/22 12:36 Urine Nitrate Negative (Negative) 11/06/22 12:36 Urine Bilirubin Neg (Negative) 11/06/22 12:36 Urine Urobilinogen Norm mg/dL (Negative) 11/06/22 12:36 Ur Leukocyte Esterase Negative (Negative) 11/06/22 12:36 Urine RBC Rare /hpf (0-2) 11/06/22 12:36 Urine WBC 0-4 /hpf (0-5) H 11/06/22 12:36 Ur Squamous Epith Cells 0-4 /hpf (0-5) H 11/06/22 12:36 Amorphous Sediment Not Reportable 11/06/22 12:36 Urine Bacteria 1+ /hpf (NONE) H 11/06/22 12:36 Hyaline Casts 5-10 /lpf H 11/06/22 12:36 Urine Mucus Trace /hpf 11/06/22 12:36 Vitals Last Vital Signs Temp 97.7 F 11/07/22 08:11 Pulse 70 11/07/22 10:30 Resp 23 H 11/07/22 10:30 BP 156/49 11/07/22 10:30 Pulse Ox 94 11/07/22 10:30 O2 Del Method 11/07/22 08:11 O2 Flow Rate 7 11/07/22 08:11 Discharge Plan Discharge Patient Disposition: Home Condition: Stable Prescriptions: New atorvastatin 40 mg Tablet 80 mg PO DAILY 30 Days Qty: 30 0RF albuterol sulfate [Ventolin HFA] 90 mcg/actuation Hfa Aerosol Inhaler 2 puff inhalation Q4H PRN (Reason: shortness of breath or wheezin) Qty: 8.5 0RF Continued ascorbic acid (vitamin C) [Vitamin C] 500 mg tablet 500 mg PO QAM Qty: 100 5RF Rx Instructions: 340 B medications aspirin 81 mg tablet,delayed release (DR/EC) 81 mg PO QAM 90 Days Qty: 90 3RF Rx Instructions: 340 B medications vitamin E 400 unit capsule 400 unit PO QAM Qty: 90 3RF Rx Instructions: 340 B medications triamcinolone acetonide 0.025 % cream 1 applic topical DAILY Qty: 454 1RF hydralazine 50 mg tablet 50 mg PO TID Qty: 270 1RF (DME) One touch test strips 100 See Rx Instructions .Route .MEDSUPPLY Qty: 3 5RF Rx Instructions: As directed Glucose testing strips three times daily on Insulin vitamin B complex Tablet 1 tab PO DAILY ferrous sulfate 325 mg (65 mg iron) tablet,delayed release (DR/EC) 325 mg PO BIDWM Rx Instructions: 340 B medications ondansetron 4 mg tablet,disintegrating 4 mg PO Q6H PRN (Reason: nausea and vomiting) Qty: 30 5RF nitroglycerin [Nitrostat] 0.4 mg tablet, sublingual 0.4 mg sublingual Q5M PRN (Reason: chest pain) Qty: 25 3RF Rx Instructions: do not exceed 3 doses per episode 340 B medications isosorbide mononitrate 30 mg tablet extended release 24 hr 30 mg PO BID 90 Days Qty: 180 1RF Rx Instructions: 340 B medications (DME) Dexcom G6 Lubrication Supervisor Misc See Rx Instructions .ROUTE .MEDSUPPLY Qty: 1 3RF Rx Instructions: change every 90 days (DME) Dexcom G6 Sensor Device See Rx Instructions .ROUTE .MEDSUPPLY Qty: 9 3RF Rx Instructions: change every 10 days (DME) Dexcom G6 Transmitter Device See Rx Instructions .ROUTE .MEDSUPPLY Qty: 1 3RF Rx Instructions: change every 3 months (DME) FreeStyle Elli 2 Sensor Kit See Rx Instructions .ROUTE .MEDSUPPLY Qty: 6 2RF Rx Instructions: change every 14 days (DME) FreeStyle Elli 2 [place] Misc See Rx Instructions .Route Qty: 1 0RF Rx Instructions: As directed Symbicort 80-4.5 mcg/actuation HFA aerosol inhaler 2 inh inhalation BID 30 Days Qty: 10.2 5RF Rx Instructions: 340 B medications Klor-Con M20 20 mEq tablet,ER particles/crystals 20 meq PO DAILY Qty: 90 2RF metoclopramide HCl [Reglan] 10 mg tablet 10 mg PO TID PRN (Reason: nausea and vomiting) Qty: 90 5RF atorvastatin 40 mg tablet 40 mg PO BID prazosin 1 mg capsule 1 mg PO DAILY Basaglar KwikPen U-100 Insulin 100 unit/mL (3 mL) insulin pen 14 unit SUBCUT DAILY pantoprazole 40 mg tablet,delayed release (DR/EC) 40 mg PO DAILY Vitamin D2 1,250 mcg (50,000 unit) capsule See Rx Instructions .ROUTE .COMPLEX Rx Instructions: 1,250 mcg orally on wednesday loratadine 10 mg Tablet 10 mg PO DAILY simethicone 250 mg Capsule 250 mg PO BID PRN (Reason: Gastrointestinal Spasms Or Cramping) insulin aspart U-100 [Novolog FlexPen U-100 Insulin] 100 unit/mL (3 mL) insulin pen See Rx Instructions .ROUTE .COMPLEX MDD 45 Qty: 15 0RF Rx Instructions: Inject subcut, 3 times daily, after meals, based on sliding scale provided Changed metoprolol tartrate 50 mg tablet 25 mg PO BID 30 Days Qty: 60 5RF Held bumetanide 1 mg tablet 1 mg PO Q12H Qty: 60 5RF Hold Instructions: Resume on 11/09/22. Rx Instructions: 340 B medications allopurinol 100 mg tablet 100 mg PO DAILY 30 Days Qty: 30 5RF Hold Instructions: Resume on 11/09/22. Discharge Orders: Discharge Order (Routine); Ordered 11/07/22 Ordered By: Dean Danielle Referrals: Juan Rene DO [Physician] - 2 weeks Donavan Clemons MD [Primary Care Provider] - 4-7 days ([facility] in 4 to 7 days. If you haven't heard from them by Wednesday. Please call ) Jigar Gusman MD [Hospitalist] - 1 month (anemia ) Discharge Diet: Cardiac Discharge Activity: Resume usual activity Patient Instructions: Albuterol (By breathing), Atorvastatin (By mouth) (Lipitor), Gastrointestinal Bleeding (DC), Acute Kidney Injury (DC), Anemia (DC), Upper Endoscopy (DC), GI Discharge Instructions, Opioid Safety Activity Restrictions/Additional Instructions: - If you develop lightheaded or dizziness go to the emergency room -If you develop bloody or black stools go to emergency room Discharge Attestations Time Spent in Discharge Care*: greater than 30 min Status at Discharge: Cognitive status at discharge: cognitively intact, Behavioral status at discharge: cooperative, Quality Metrics Clinical Quality Measures [ No reported AMI, CVA or VTE this stay] Coding Level of Care Code 51176 Total time (in minutes) for Discharge: 40 Diagnoses Anemia D64.9 GI bleed K92.2
[2022-11-07 11:27] LABS: Hematocrit 29.6 % (42.0-52.0); Hemoglobin 8.6 g/dL (11.7-16.6)
--- NOTE | 2022-11-07 11:50 | PC.NURSE ---
Discharge education finalized, printed et reviewed with patient et his . Discharge medications, including new prescriptions, were reviewed et instructions on picking up new medications were provided with patient et his . Pts 1030 hGb results were given to patient. Occult blood test results are not back at the time of discharge. RN obtained phone number et will call patient with the results of the occult blood test that was sent today. All discharge, discharge medications, follow-up appointment questions were answered. Written discharge instructions were given to patient et patient was discharged home with .
== END 2022-11-07 11:35 | disposition home or self-care (01) | DRG 378 ==
LOC: ER 15:00 → CSU 15:53
PROVIDERS: Surgery; Admitting Provider Family Medicine; Emergency Provider Family Medicine; PCP Family Medicine Adult Medicine; Visit Provider Family Medicine
PROC: 0DJ08ZZ Inspection of Upper Intestinal Tract, Via Natural or Artificial Opening Endoscopic (ICD-10-PCS; CPT 43235; principal; 2022-11-07 09:00)
DX: K92.1 Melena (principal); I13.0 Hypertensive heart and chronic kidney disease with heart failure and stage 1 through stage 4 chronic kidney disease, or unspecified chronic kidney disease; I50.22 Chronic systolic (congestive) heart failure; N18.4 Chronic kidney disease, stage 4 (severe); N17.9 Acute kidney failure, unspecified; I25.5 Ischemic cardiomyopathy; E11.22 Type 2 diabetes mellitus with diabetic chronic kidney disease; I25.2 Old myocardial infarction; I25.10 Atherosclerotic heart disease of native coronary artery without angina pectoris; Z95.1 Presence of aortocoronary bypass graft; Z95.5 Presence of coronary angioplasty implant and graft; D50.9 Iron deficiency anemia, unspecified; D63.1 Anemia in chronic kidney disease; Z79.82 Long term (current) use of aspirin; Z79.4 Long term (current) use of insulin; Z88.0 Allergy status to penicillin; G47.33 Obstructive sleep apnea (adult) (pediatric); Z99.89 Dependence on other enabling machines and devices; Z87.891 Personal history of nicotine dependence; E86.0 Dehydration
CPT/HCPCS: 36415; 36416; 43239; 71045; 74176; 80053; 81001; 82274; 82607; 82728; 82746; 82962; 83036; 83540; 83550; 83605; 83690; 83735; 83880; 84100; 84443; 84484; 85014; 85018; 85025; 85610; 88305; 93005; 94660; 96372; 96376; 99285; A9270; C9113; J1815; J2704; J3490; J7030

== ENCOUNTER 2022-11-09 11:43 | Outpatient (RCR) | payer SELFPAY | END 2022-12-06 23:59 | disposition home or self-care (01) | LOC: CR 11:43 | PROVIDERS: PCP Family Medicine Adult Medicine; Referring Provider Internal Medicine; Visit Provider Internal Medicine | DX: Z95.5 Presence of coronary angioplasty implant and graft (principal) ==

== ENCOUNTER → 2022-11-17 10:49 | Outpatient (BNVA) | payer MEDICARE, SELFPAY | PROVIDERS: PCP Family Medicine Adult Medicine; Visit Provider Internal Medicine | DX: E11.65 Type 2 diabetes mellitus with hyperglycemia (principal); E11.22 Type 2 diabetes mellitus with diabetic chronic kidney disease; N18.4 Chronic kidney disease, stage 4 (severe); E78.2 Mixed hyperlipidemia; Z79.4 Long term (current) use of insulin; R10.13 Epigastric pain; R14.0 Abdominal distension (gaseous) | CPT/HCPCS: 99203; 99214 ==

== ENCOUNTER → 2022-11-18 10:42 | Outpatient (BNVA) | payer MEDICARE, SELFPAY | PROVIDERS: PCP Family Medicine Adult Medicine; Visit Provider Nurse Practitioner Family | DX: I13.0 Hypertensive heart and chronic kidney disease with heart failure and stage 1 through stage 4 chronic kidney disease, or unspecified chronic kidney disease (principal); E11.22 Type 2 diabetes mellitus with diabetic chronic kidney disease; N18.4 Chronic kidney disease, stage 4 (severe); I50.43 Acute on chronic combined systolic (congestive) and diastolic (congestive) heart failure; Z87.891 Personal history of nicotine dependence; Z79.4 Long term (current) use of insulin | CPT/HCPCS: 99214 ==

== ENCOUNTER 2022-11-27 12:22 | Outpatient (CLI) | payer MEDICARE, SELFPAY ==
--- NOTE | 2022-11-27 12:45 | CT_ITS ---
WS: [id number] LDCT LUNG CANCER SCREENING HISTORY: annual screen TECHNIQUE: Axial imaging performed from the apices to 1 cm below the costophrenic angles. Coronal and sagittal reformats are submitted with axial MIP series. All CT scans at [facility] use at least one of these dose optimization techniques: automated exposure control; mA and/or kV adjustment per patient size (includes targeted exams where dose is matched to clinical indication); or iterativ e reconstruction. DLP: 57.70 mGy.cm DIvol: Mean CTDIvol: 1.10 (mGy) COMPARISON: 09/22/2021 Diagnostic quality: Limited by breathing motion artifact. Lungs: No mass or pulmonary nodule identified. Limited by breathing motion artifact. Heart: Heart is enlarged. Heart is increased in size since the prior examination. Prior CABG. Extensi ve calcifications in the [place] coronary arteries. No pericardial effusion. Other findings: New small layering bilateral pleural effusions, RIGHT greater than LEFT. Small amount of ascites in the upper abdomen. Soft tissue anasarca. LEFT adrenal 1.[address]/CT lung screening [id number] IMPRESSION: LUNG-RADS: 2S-Benign Appearance or Behavior with Significant Findings FOLLOW UP: 12 Month: Continue annual screening with LDCT OTHER FINDINGS (S MODIFIER): 1. Study is significantly limited by motion artifact. 2. Interval enlargement of the heart. 3. Small bilateral pleural effusions and small amount of ascites in the upper a bdomen. 4. LEFT adrenal myelolipoma.
== END 2022-11-27 12:23 | disposition home or self-care (01) ==
LOC: RAD 12:27
PROVIDERS: PCP Family Medicine Adult Medicine; Visit Provider Family Medicine Adult Medicine
DX: J44.9 Chronic obstructive pulmonary disease, unspecified (principal); D17.79 Benign lipomatous neoplasm of other sites; R18.8 Other ascites
CPT/HCPCS: 71271

== ENCOUNTER 2022-12-04 12:17 | Outpatient (CLI) | payer MEDICARE, SELFPAY ==
--- NOTE | 2022-12-04 12:30 | US_ITS ---
WS: [id number] RENAL ULTRASOUND HISTORY: BILATERAL RENAL Cysts STAGE 4 COMPARISON: 08/25/2022, 09/24/2021 TECHNIQUE: 2-D and color Doppler imaging of the kidney submitted. Right kidney: 10.5 cm x 4.6 cm x 4.9 cm. Cortex: 1.3 cm Normal size kidney. Very slight increased echogenicity. Several scattered cortical cysts are identifi ed. These were previously described with the largest measuring 1.8 x 1.7 x 2.0 cm in the mid kidney. No hydronephrosis or solid mass. Left kidney: 9.5 cm x 3.9 cm x 5.6 cm. Cortex: 1.3 cm Cortical cyst mid kidney measures 1.9 x 1.7 x 2.2 cm. There is an additional larger cyst measuring 2. 8 x 2.7 x 2.3 cm. No solid mass and no obstruction. Aorta: Poorly visualized. Urinary Bladder: Normal distention. Small amount of ascites. US/US renal BI* [id number] IMPRESSION: 1. No renal obstruction. 2. No significant atrophy. Very mild chronic medical renal disease. 3. Bilateral renal cysts with no solid mass. 4. Small amount of ascites.
== END 2022-12-04 12:18 | disposition home or self-care (01) ==
LOC: RAD 12:20
PROVIDERS: PCP Family Medicine Adult Medicine; Visit Provider Urology
DX: N28.1 Cyst of kidney, acquired (principal); D35.01 Benign neoplasm of right adrenal gland; D35.02 Benign neoplasm of left adrenal gland; N18.4 Chronic kidney disease, stage 4 (severe)
CPT/HCPCS: 76770

== ENCOUNTER 2022-12-07 14:04 | Outpatient (RCR) | payer SELFPAY | END 2023-01-06 23:59 | disposition home or self-care (01) | LOC: CR 14:04 | PROVIDERS: PCP Family Medicine Adult Medicine; Referring Provider Internal Medicine; Visit Provider Internal Medicine | DX: Z95.5 Presence of coronary angioplasty implant and graft (principal) ==

== ENCOUNTER 2022-12-08 13:26 | Oncology outpatient (recurring) (ONCR) | payer MEDICARE, SELFPAY | END 2023-01-06 23:59 | disposition home or self-care (01) | PROVIDERS: PCP Family Medicine Adult Medicine; Visit Provider Internal Medicine Medical Oncology | DX: D64.9 Anemia, unspecified (principal); N18.4 Chronic kidney disease, stage 4 (severe); I12.9 Hypertensive chronic kidney disease with stage 1 through stage 4 chronic kidney disease, or unspecified chronic kidney disease; Z87.891 Personal history of nicotine dependence; Z79.899 Other long term (current) drug therapy | CPT/HCPCS: 99205 ==

== ENCOUNTER 2022-12-09 09:27 | Outpatient (CLI) | payer MEDICARE, SELFPAY ==
--- NOTE | 2022-12-09 10:00 | NM_ITS ---
WS: [id number] NUCLEAR MEDICINE HIDA SCAN CLINICAL INFORMATION: abdominal pain TECHNIQUE: Following intravenous administration of 7.6 mCi of technetium 99m mebrofenin, images of th e abdomen were obtained over the course of 60 minutes. Next, gallbladder ejection fraction was determ ined by obtaining preprandial and one-hour postprandial images of the gallbladder following oral bri stion of Ensure. COMPARISON: None. FINDINGS: Normal hepatic uptake at 5 minutes. Normal hepatic excretion. Gallbladder is visualized by 10 minutes . No evidence of acute cholecystitis. Normal common bile duct and small bowel activity. Gallbladder ejection fraction 44% within normal limits. No evidence of chronic cholecystitis. NM/NM hepatobiliary w phar* [id number] IMPRESSION: 1. No evidence of acute or chronic cholecystitis. 2. Gallbladder ejection fraction 44% within normal limits.
== END 2022-12-09 09:28 | disposition home or self-care (01) ==
LOC: RAD 09:28
PROVIDERS: PCP Family Medicine Adult Medicine; Visit Provider Surgery
DX: R10.9 Unspecified abdominal pain (principal)
CPT/HCPCS: 78227; 99214; A9537

== ENCOUNTER 2022-12-11 12:25 | Outpatient (CLI) | payer MEDICARE, SELFPAY ==
[2022-12-11 13:38] LABS: Basophils % 0.2 %; Eosinophils # 0.2 10^3/uL (0.0-0.8); Eosinophils % 2.3 %; Hematocrit 28.9 % (42.0-52.0); Hemoglobin 8.6 g/dL (11.7-16.6); Lymphocytes # 0.8 10^3/uL (0.8-4.8); Lymphocytes % 9.3 %; Mean Corpuscular HGB Conc 29.8 g/dL (30.0-36.0); Mean Corpuscular Hemoglobin 28.3 pg (28.0-34.0); Mean Corpuscular Volume 95.1 fl (80-94); Mean Platelet Volume 11.5 fL (7.4-10.4); Monocytes # 0.7 10^3/uL (0.2-0.9); Monocytes % 7.6 %; Neutrophils % 80.3 %; Nucleated Red Blood Cells % 0 %; Platelet Count 226 10^3/cmm (130-400); Red Blood Count 3.04 10^6/uL (4.1-5.3); Red Cell Distribution Width 15.3 % (12.1-15.1); White Blood Count 8.7 10^3/uL (4.0-10.0)
[2022-12-11 13:50] LABS: Reticulocyte % 1.8 % (0.5-2.0)
[2022-12-11 13:56] LABS: LAB Peripheral Smear Sent for Review
[2022-12-11 14:11] LABS: Alanine Aminotransferase 24 U/L (0-41); Albumin Level 3.8 g/dL (3.5-5.2); Alkaline Phosphatase 157 U/L (40-130); Anion Gap 16.8 (5-19); Aspartate Amino Transferase 19 U/L (0-40); Calcium 8.6 mg/dL (8.5-10.5); Carbon Dioxide 28 mmol/L (22-29); Chloride 103 mmol/L (98-107); Ferritin 237 ng/mL (30-400); Globulin 2.4 g/dL (1.3-4.6); Glomerular Filtration Rate 18.1 mL/min (90-130); Glucose 278 mg/dL (65-115); Lactate Dehydrogenase 319 U/L (135-225); Osmolality Calculated 332 mOsm/kg (285-295); Potassium 4.8 mmol/L (3.5-5.1); Sodium 143 mmol/L (136-145); Total Bilirubin 0.3 mg/dL (0.15-1.2); Total Protein 6.2 g/dL (6.6-8.7)
[2022-12-11 14:25] LABS: Vitamin B12 594 pg/mL (232-1245)
[2022-12-11 14:38] LABS: Blood Urea Nitrogen 85 mg/dL (8-23)
[2022-12-11 15:44] LABS: Folate Level > 20.0 ng/mL (4.5-32.2)
[2022-12-12 09:45] LABS: PROTEIN, TOTAL 6.1 g/dL (6.1-8.1)
[2022-12-14 13:40] LABS: KAPPA LIGHT CHAIN, FREE, SERUM 67.5 mg/L (3.3-19.4); KAPPA/LAMBDA LIGHT CHAINS FREE 1.32 (0.26-1.65); LAMBDA LIGHT CHAIN, FREE, SERU 51.1 mg/L (5.7-26.3)
[2022-12-14 15:34] LABS: ALBUMIN 3.4 g/dL (3.8-4.8); ALPHA 1 GLOBULIN 0.4 g/dL (0.2-0.3); ALPHA 2 GLOBULIN 0.9 g/dL (0.5-0.9); BETA 1 GLOBULIN 0.5 g/dL (0.4-0.6); BETA 2 GLOBULIN 0.3 g/dL (0.2-0.5); GAMMA GLOBULIN 0.7 g/dL (0.8-1.7)
[2022-12-14 16:14] LABS: Erythropoietin 15.9 mIU/mL (2.6-18.5)
== END 2022-12-11 12:26 | disposition home or self-care (01) ==
LOC: LAB 12:29
PROVIDERS: PCP Family Medicine Adult Medicine; Visit Provider Internal Medicine Medical Oncology
DX: D64.9 Anemia, unspecified (principal)
CPT/HCPCS: 36415; 80053; 82607; 82668; 82728; 82746; 83010; 83615; 83883; 84155; 84165; 85025; 85045

== ENCOUNTER 2023-01-08 11:33 | Outpatient (RCR) | payer SELFPAY | END 2023-02-05 23:59 | disposition home or self-care (01) | LOC: CR 11:33 | PROVIDERS: PCP Family Medicine Adult Medicine; Referring Provider Internal Medicine; Visit Provider Internal Medicine | DX: Z95.5 Presence of coronary angioplasty implant and graft (principal) ==

== ENCOUNTER → 2023-01-12 17:19 | Outpatient (BNVA) | payer MEDICARE, SELFPAY | PROVIDERS: PCP Family Medicine Adult Medicine; Visit Provider Surgery | DX: Z09 Encounter for follow-up examination after completed treatment for conditions other than malignant neoplasm (principal); N18.4 Chronic kidney disease, stage 4 (severe) | CPT/HCPCS: 80069; 82043; 82310; 83970; 85025; 99212 ==

== ENCOUNTER 2023-01-25 10:29 | Day surgery (SDC) | payer MEDICARE, SELFPAY ==
[2023-01-22 09:01] VITALS: BMI 26.0
[2023-01-25] MEDS: sodium chloride 0.9% 1,000 ML 30 ML IV (11:09)
[2023-01-25 11:10] VITALS: BP 150/61; PULSE 67; RESP 18; TEMP 36.6; O2SAT 97
[2023-01-25 11:13] LABS: Basophils % 0.4 %; Eosinophils # 0.3 10^3/uL (0.0-0.8); Eosinophils % 2.5 %; Hemoglobin 10.2 g/dL (11.7-16.6); Lymphocytes # 1.2 10^3/uL (0.8-4.8); Lymphocytes % 10.7 %; Mean Corpuscular HGB Conc 30.9 g/dL (30.0-36.0); Mean Corpuscular Volume 93.8 fl (80-94); Mean Platelet Volume 10.5 fL (7.4-10.4); Monocytes # 0.9 10^3/uL (0.2-0.9); Monocytes % 8.1 %; Neutrophils # 8.51 10^3/uL (1.8-7.7); Nucleated Red Blood Cells % 0 %; Platelet Count 260 10^3/cmm (130-400); Red Blood Count 3.52 10^6/uL (4.1-5.3); White Blood Count 10.9 10^3/uL (4.0-10.0)
[2023-01-25 11:17] LABS: Glucose Point of Care 250 mg/dL (70-110)
--- NOTE | 2023-01-25 11:58 | ANES.PREANE2 ---
Pre-Anesthetic Assessment Height/Weight: Height 1.63 m Weight 68.855 kg Temp Pulse Resp BP Pulse Ox O2 Del Method 97.9 F 67 18 150/61 97 Room Air 01/25/23 11:10 01/25/23 11:10 01/25/23 11:10 01/25/23 11:10 01/25/23 11:10 01/25/23 11:10 Preop Diagnosis: anemia Operation Date: 01/25/23 12:30 Proposed Procedures p Bone Marrow Biospy With Aspiration(Not Applicable) - Nataly Sin MD Was Beta Iris taken within 24 hours: Yes Was Clonidine taken within 24 hours: Yes Last intake: Intake Last Liquid Date 01/24/23 Last Liquid Time 23:30 Last Solid Date 01/24/23 Last Solid Time 21:00 Social No alcohol and No tobacco Exam alert, oriented x 3, clear to auscultation bilaterally and regular rate & rhythm Airway Submandibular: within normal limits Cervical ROM: within normal limits Mallampati: Class I Comments: Comments: full chin. poor dentition. missing many Pulmonary Chronic Obstructive Pulmonary Disease and Sleep Apnea 2.5 L NC, CPAP a few times a week . sleeps upright with 2 pillows CV/HEM Coronary Artery Disease, Congestive Heart Failure, Hypertension and Myocardial Infarction last saw cardiology in august. no changes. 11 stents, last placed approx 1 year ago Chronic Renal Failure Hepatic None reported GI Gastroesophageal Reflux Disease controlled Metabolic Diabetes Mellitus insulin-dependent. BG 250 Musc/skel Lower Back Pain Neuropsych flat affect, delayed responses Anesthetic Plan ASA status: 4 Anesthesia: Anesthesia Evaluation and MAC Medications/Allergies Home Medications Medication Instructions Recorded Confirmed Last Taken Type ascorbic acid (vitamin C) 500 mg 500 mg PO [employer] #100 tabs 08/22/21 01/22/23 01/24/23 Rx tablet (Vitamin C) aspirin 81 mg tablet,delayed 81 mg PO QA 90 days #90 tabs 08/22/21 01/22/23 01/20/23 Rx release vitamin E 268 mg (400 unit) capsule 400 unit PO [employer] #90 caps 08/22/21 01/22/23 01/24/23 Rx nitroglycerin 0.4 mg sublingual 0.4 mg sublingual Q5M PRN chest 05/01/22 01/22/23 Unknown Rx tablet (Nitrostat) pain #25 tabs loratadine 10 mg tablet 10 mg PO DAILY 08/25/22 01/22/23 01/24/23 History One touch test strips #3 ea 09/01/22 01/19/23 Unknown Rx blood-glucose meter,continuous #1 ea 09/14/22 01/19/23 Unknown Rx (Dexcom G6 [employer]ash [employer]or Supervisor) blood-glucose sensor (Dexcom G6 #9 ea 09/14/22 01/19/23 Unknown Rx Sensor device) blood-glucose transmitter (Dexcom #1 ea 09/14/22 01/19/23 Unknown Rx G6 Transmitter device) bumetanide 1 mg tablet 1 mg PO Q12H Heart failure #60 tabs 09/14/22 01/22/23 01/24/23 Rx vitamin B complex 1 tab PO DAILY 09/29/22 01/22/23 01/24/23 History flash glucose scanning reader #1 ea 10/05/22 01/19/23 Unknown Rx (FreeStyle Elli 2 [place]) flash glucose sensor (FreeStyle #6 ea 10/05/22 01/19/23 Unknown Rx Elli 2 Sensor kit) budesonide-formoterol HFA 80 2 inh inhalation BID lungs & 10/14/22 01/22/23 01/24/23 Rx mcg-4.5 mcg/actuation aerosol breathing 30 days #10.2 grams inhaler (Symbicort) atorvastatin 40 mg tablet 40 mg PO BID 11/06/22 01/22/23 01/25/23 History metolazone 2.5 mg tablet 2.5 mg PO .twice a week 11/18/22 01/22/23 01/22/23 History potassium chloride 20 mEq 20 meq PO .As directed 11/18/22 01/22/23 01/24/23 History tablet,extended release(part/cryst) (Klor-Con M) pantoprazole 40 mg tablet,delayed 40 mg PO BID acid reflux #60 tabs 12/04/22 01/22/23 01/21/23 Rx release biotin 10,000 mcg disintegrating 10,000 mcg PO DAILY 12/08/22 01/22/23 01/24/23 History tablet docusate sodium 50 mg capsule 100 mg PO BID 12/08/22 01/22/23 01/24/23 History (Stool Softener) metoprolol tartrate 50 mg tablet 50 mg PO BID blood pressure 12/08/22 01/22/23 01/25/23 History prazosin 1 mg capsule 1 mg PO BID 12/08/22 01/22/23 01/24/23 History simethicone 250 mg capsule 250 mg PO TID PRN Gastrointestinal 12/08/22 01/22/23 01/24/23 History Spasms Or Cramping vit A 7,160 unit-vit C 113 mg-vit 1 tab PO DAILY 12/08/22 01/22/23 01/24/23 History E 100 [id number] tablet (EyeProtect) hydralazine 50 mg tablet 50 mg PO BID blood Pressure #180 12/14/22 01/22/23 01/24/23 Rx tabs allopurinol 100 mg tablet 100 mg PO DAILY gout 30 days #30 12/17/22 01/22/23 01/24/23 Rx tabs tramadol 50 mg tablet 50 mg PO Q8H PRN pain 15 days #45 12/28/22 01/22/23 Unknown Rx tabs isosorbide mononitrate 30 mg 30 mg PO BID chest pain 90 days 01/11/23 01/22/23 01/25/23 Rx tablet,extended release 24 hr #180 tabs benzonatate 100 mg capsule 100 mg PO TID PRN cough #30 caps 01/21/23 01/22/23 01/11/23 Rx insulin aspart U-100 100 unit/mL See Rx Instructions .Route .COMPLEX 01/22/23 01/22/23 01/21/23 History (3 mL) subcutaneous pen (Novolog FlexPen U-100 Insulin aspart) insulin glargine 100 unit/mL (3 12 unit SUBCUT DAILY 01/22/23 01/22/23 01/24/23 History mL) subcutaneous pen (Lantus Solostar U-100 Insulin) triamcinolone acetonide 0.025 % 1 applic topical DAILY PRN Rash 01/22/23 01/22/23 Unknown History topical cream cholecalciferol (vitamin D3) 50 100 mcg PO DAILY 01/25/23 01/25/23 01/24/23 History mcg (2,000 unit) capsule (Vitamin D3) Allergies Allergy/AdvReac Type Severity Reaction Status Date / Time Influenza Virus Vaccines Allergy Severe ADR-Hyperte Verified 01/22/23 08:46 nsion Penicillins Allergy ALGY-Anaphy Verified 01/22/23 08:46 laxis Current Medications Generic Name Dose Route Start Last Admin Trade Name Eduardo PRN Reason Stop Dose Admin Sodium Chloride 1,000 mls @ 30 mls/hr 01/25/23 11:00 01/25/23 11:09 Sodium Chloride 0.9% IV 01/26/23 10:59 30 mls/hr .Q24H SUNSHINE Administration PFSH Anesthesia Medical History Abnormal abdominal CT scan Acute non-ST segment elevation myocardial infarction (NSTEMI) following previous myocardial infarction Allergic rhinitis due to allergen Anemia, chronic renal failure Anemia, iron deficiency Atopic dermatitis and related condition Bilateral lower extremity edema CAD (coronary artery disease) remote CABG, NSTEMI, Stents 07/2021 Cellulitis of right lower leg CHF (congestive heart failure) Chronic GERD Chronic nausea CKD stage 4 due to type 2 diabetes mellitus COPD (chronic obstructive pulmonary disease) Current non-smoker Quit 06/28/2021 after 57 years at 1.5 packs/day Diabetes mellitus, type II Elevated uric acid in blood Essential hypertension Gout Hypercholesterolemia Inflammatory monoarthritis of right wrist Ischemic cardiomyopathy ORA on CPAP Postprandial abdominal bloating Sinus node dysfunction Surgical History History of appendectomy History of coronary artery stent placement Hx of CABG Family History Father Cancer Mother Diabetes Heart attack Social History Smoking and tobacco status: former smoker Quit status (tobacco): has quit using tobacco Year quit tobacco: June 2021 Former quit date comment: 1.5ppd x 57years Alcohol intake: current Alcohol intake frequency: holidays/special occasions only Alcohol type: beer Substance/Drug Use: never Desire information about substance/drug rehabilitation?: No Caregiver/support person: No Lives independently: Yes Household members: spouse Marital status: Number of children: 2 service: No Current occupational status: retired and disabled Do you think of yourself as: Straight/Heterosexual Current gender identity: Male Data Anesthesia 01/25/23 11:06 Short CBC 01/25/23 Range/Units 11:06 WBC 10.9 H (4.0-10.0) 10^3/uL Hgb 10.2 L (11.7-16.6) g/dL Hct 33.0 L (42.0-52.0) % MCV 93.8 (80-94) fl Plt Count 260 (130-400) 10^3/cmm Neut % (Auto) 78.0 % Neut # (Auto) 8.51 H (1.8-7.7) 10^3/uL Cardiac Studies: Echocardiogram 08/25/22 Echocardiogram Limited Views 08/05/21 Sestamibi Stress Test (Cardiology) 05/15/21 Cardiac Event Monitor 07/02/21
--- NOTE | 2023-01-25 13:01 | W.PM.OPSUD ---
Surgery/Procedure H&P Update DATE OF PROCEDURE: January 25, 2023 DATE H&P PERFORMED: 11/06/22 CHANGES TO PREVIOUS DOCUMENTATION: Patient seen, no new signs symptoms since his recent visit to the clinic PREOP DIAGNOSIS: anemia PRIMARY INDICATION FOR PROCEDURE: Anemia PLANNED PROCEDURE: Operation Date: 01/25/23 12:30 Proposed Procedures p Bone Marrow Biospy With Aspiration(Not Applicable) - Nataly Sin MD
--- NOTE | 2023-01-25 13:20 | P.PCN_ITS ---
Bone Marrow Biopsy Bone Marrow Biopsy: I was consulted by [] office regarding bone marrow biopsy on [Luis Alfredo Thompson]. Briefly, the patient is a [68] year old [male] with [anemia]. In the Outpatient Services Department, with nursing staff and laboratory technologists in attendance, the procedure was discussed with the patient. Appropriate consent form had been signed. Appropriate alternatives, benefits and risks of procedure were discussed with the patient and he was pre- operatively assessed with a history and physical by myself and cleared for the biopsy procedure. The patient did request IV sedation and that was provided by the Anesthesia Department. Under aseptic condition, right posterior clinic area was cleaned and prepped, local anesthesia was given, about 15 cc of bone marrow aspirate and core biopsy was obtained, patient tolerated procedure well, specimen was sent for routine histopathology, flow cytometry, cytogenetics and FISH for MDS. Postprocedure nurse instructions were given Thank you for allowing me to participate in this patient's care and diagnosis. Coding Level of Care Code Acute Code for Hong Cunningham
[2023-01-25 13:22] VITALS: BP 85/35; PULSE 64; RESP 18; TEMP 36.3; O2SAT 100
[2023-01-25 13:31] VITALS: BP 98/41; PULSE 58; RESP 18; O2SAT 100
[2023-01-25 13:45] VITALS: BP 122/53; PULSE 62; RESP 18; O2SAT 100
--- NOTE | 2023-01-25 14:31 | ANE.PACU2 ---
Inpatient post-anesthesia follow up: Airway intact: Yes Vital signs: Temperature 97.3 F Pulse Rate 62 Respiratory Rate 18 Blood Pressure 122/53 Pulse Oximetry 100 Oxygen Delivery Me thod Room Air Oxygen Flow Rate 4 Fraction of Inspir ed Oxygen Hydration adequate: Yes Nausea and vomiting: No Pain level: 2 Mental status: Baseline
[2023-01-27 11:36] LABS: Leukemia Profile (BBPL) See Report; Lymphoma Profile (BBPL) See Report
[2023-02-05 15:00] LABS: Chromosome Analysis BBPL See Report; MDS Panel (BBPL) See Report
== END 2023-01-25 14:07 | disposition home or self-care (01) ==
PROVIDERS: PCP Family Medicine Adult Medicine; Visit Provider Internal Medicine Hematology & Oncology
PROC: 07DT3ZX Extraction of Bone Marrow, Percutaneous Approach, Diagnostic (ICD-10-PCS; CPT 38222; principal; 2023-01-25 12:30)
DX: D64.9 Anemia, unspecified (principal); I13.0 Hypertensive heart and chronic kidney disease with heart failure and stage 1 through stage 4 chronic kidney disease, or unspecified chronic kidney disease; N18.4 Chronic kidney disease, stage 4 (severe); I50.9 Heart failure, unspecified; I25.10 Atherosclerotic heart disease of native coronary artery without angina pectoris; I25.2 Old myocardial infarction; J44.9 Chronic obstructive pulmonary disease, unspecified; K21.9 Gastro-esophageal reflux disease without esophagitis; E78.00 Pure hypercholesterolemia, unspecified; Z79.4 Long term (current) use of insulin; Z79.82 Long term (current) use of aspirin; Z88.0 Allergy status to penicillin; Z87.891 Personal history of nicotine dependence; Z95.1 Presence of aortocoronary bypass graft; Z95.5 Presence of coronary angioplasty implant and graft
CPT/HCPCS: 36415; 36416; 38222; 82962; 85025; 88184; 88185; 88237; 88264; 88291; 88305; 88311; 88367; 88374; J2704; J7030

== ENCOUNTER 2023-02-03 13:00 | Oncology outpatient (recurring) (ONCR) | payer MEDICARE, SELFPAY ==
[2023-01-19 10:49] VITALS: BP 146/75; PULSE 58; RESP 17; TEMP 36.5; O2SAT 96
[2023-01-19 11:03] LABS: Basophils % 0.4 %; Eosinophils # 0.2 10^3/uL (0.0-0.8); Eosinophils % 3.6 %; Hematocrit 30.2 % (42.0-52.0); Hemoglobin 9.2 g/dL (11.7-16.6); Lymphocytes # 1.1 10^3/uL (0.8-4.8); Lymphocytes % 16.1 %; Mean Corpuscular HGB Conc 30.5 g/dL (30.0-36.0); Mean Corpuscular Hemoglobin 28.6 pg (28.0-34.0); Mean Corpuscular Volume 93.8 fl (80-94); Mean Platelet Volume 10.7 fL (7.4-10.4); Monocytes # 0.5 10^3/uL (0.2-0.9); Monocytes % 7.6 %; Neutrophils # 4.82 10^3/uL (1.8-7.7); Neutrophils % 71.9 %; Nucleated Red Blood Cells % 0 %; Platelet Count 216 10^3/cmm (130-400); Red Blood Count 3.22 10^6/uL (4.1-5.3); Red Cell Distribution Width 14.8 % (12.1-15.1); White Blood Count 6.7 10^3/uL (4.0-10.0)
[2023-01-19 11:24] LABS: Alanine Aminotransferase 18 U/L (0-41); Alkaline Phosphatase 85 U/L (40-130); Anion Gap 16.8 (5-19); Aspartate Amino Transferase 19 U/L (0-40); Blood Urea Nitrogen 69 mg/dL (8-23); Calcium 8.7 mg/dL (8.5-10.5); Carbon Dioxide 25 mmol/L (22-29); Chloride 100 mmol/L (98-107); Globulin 2.3 g/dL (1.3-4.6); Glomerular Filtration Rate 19.4 mL/min (90-130); Glucose 346 mg/dL (65-115); Osmolality Calculated 318 mOsm/kg (285-295); Potassium 4.8 mmol/L (3.5-5.1); Sodium 137 mmol/L (136-145); Total Bilirubin 0.2 mg/dL (0.15-1.2); Total Protein 6.3 g/dL (6.6-8.7)
[2023-02-03 12:25] VITALS: BP 119/62; PULSE 67; RESP 18; TEMP 36.4; O2SAT 96
[2023-02-03 13:05] LABS: Alanine Aminotransferase 21 U/L (0-41); Albumin Level 4.2 g/dL (3.5-5.2); Alkaline Phosphatase 93 U/L (40-130); Anion Gap 17.4 (5-19); Aspartate Amino Transferase 21 U/L (0-40); Blood Urea Nitrogen 73 mg/dL (8-23); Calcium 8.8 mg/dL (8.5-10.5); Carbon Dioxide 26 mmol/L (22-29); Chloride 94 mmol/L (98-107); Globulin 2.6 g/dL (1.3-4.6); Glomerular Filtration Rate 18.7 mL/min (90-130); Glucose 272 mg/dL (65-115); Osmolality Calculated 305 mOsm/kg (285-295); Potassium 5.4 mmol/L (3.5-5.1); Sodium 132 mmol/L (136-145); Total Bilirubin 0.3 mg/dL (0.15-1.2); Total Protein 6.8 g/dL (6.6-8.7)
[2023-02-03 14:28] LABS: Basophils % 0.4 %; Eosinophils # 0.2 10^3/uL (0.0-0.8); Eosinophils % 2.2 %; Hematocrit 31.3 % (42.0-52.0); Hemoglobin 9.9 g/dL (11.7-16.6); Lymphocytes # 1.2 10^3/uL (0.8-4.8); Lymphocytes % 14.7 %; Mean Corpuscular HGB Conc 31.6 g/dL (30.0-36.0); Mean Corpuscular Hemoglobin 29.6 pg (28.0-34.0); Mean Corpuscular Volume 93.4 fl (80-94); Mean Platelet Volume 11.3 fL (7.4-10.4); Monocytes # 0.5 10^3/uL (0.2-0.9); Monocytes % 6.6 %; Neutrophils # 6.22 10^3/uL (1.8-7.7); Neutrophils % 75.9 %; Nucleated Red Blood Cells % 0 %; Platelet Count 236 10^3/cmm (130-400); Red Blood Count 3.35 10^6/uL (4.1-5.3); Red Cell Distribution Width 14.4 % (12.1-15.1); White Blood Count 8.2 10^3/uL (4.0-10.0)
== END 2023-02-05 23:59 | disposition home or self-care (01) ==
PROVIDERS: Nurse Practitioner Family; PCP Family Medicine Adult Medicine; Visit Provider Internal Medicine Medical Oncology
DX: D64.9 Anemia, unspecified (principal); I12.9 Hypertensive chronic kidney disease with stage 1 through stage 4 chronic kidney disease, or unspecified chronic kidney disease; E11.22 Type 2 diabetes mellitus with diabetic chronic kidney disease; N18.4 Chronic kidney disease, stage 4 (severe); D63.1 Anemia in chronic kidney disease; Z79.899 Other long term (current) drug therapy
CPT/HCPCS: 36415; 80053; 85025; 99213; 99214

== ENCOUNTER 2023-02-08 14:37 | Outpatient (RCR) | payer SELFPAY | END 2023-03-08 23:59 | disposition home or self-care (01) | LOC: CR 14:37 | PROVIDERS: PCP Family Medicine Adult Medicine; Referring Provider Internal Medicine; Visit Provider Internal Medicine | DX: Z95.5 Presence of coronary angioplasty implant and graft (principal) ==

== ENCOUNTER → 2023-02-11 10:35 | Outpatient (BNVA) | payer MEDICARE, SELFPAY | PROVIDERS: PCP Family Medicine Adult Medicine; Visit Provider Family Medicine Adult Medicine | DX: N18.4 Chronic kidney disease, stage 4 (severe) (principal); D63.1 Anemia in chronic kidney disease; E55.9 Vitamin D deficiency, unspecified | CPT/HCPCS: 80069; 82728; 83550; 84466; 85025 ==

== ENCOUNTER 2023-03-09 13:09 | Outpatient (RCR) | payer SELFPAY | END 2023-04-08 23:59 | disposition home or self-care (01) | LOC: CR 13:09 | PROVIDERS: PCP Family Medicine Adult Medicine; Referring Provider Internal Medicine; Visit Provider Internal Medicine | DX: Z95.5 Presence of coronary angioplasty implant and graft (principal) ==

== ENCOUNTER → 2023-03-23 11:09 | Outpatient (BNVA) | payer MEDICARE, SELFPAY | PROVIDERS: PCP Family Medicine Adult Medicine | DX: N18.4 Chronic kidney disease, stage 4 (severe) (principal); E55.9 Vitamin D deficiency, unspecified | CPT/HCPCS: 80069; 82043; 82306; 82310; 82728; 83550; 83970; 85025 ==

== ENCOUNTER 2023-03-24 11:00 | Emergency (ER) | payer MEDICARE, SELFPAY ==
[2023-03-24] VITALS (7 sets, daily range): BP systolic 123–166; BP diastolic 61–87; PULSE 67–78; RESP 17; TEMP 36.8; O2SAT 94–96; BMI 26.1
--- NOTE | 2023-03-24 12:17 | W.ED.RECABL ---
HPI - Recheck/Abnormal Lab/Rx General: Chief Complaint: Recheck/Abnormal Lab/Rx Stated Complaint: sent by minaya/abn labs Time Seen by Provider: 03/24/23 12:09 Source: patient Mode of arrival: ambulatory History of Present Illness: 68-year-old male presents to the emergency room with plaints of abnormal labs. Patient has a history of chronic kidney disease and is currently being followed by nephrology. He is chronically anemic. Baseline creatinine recently has been around 3 4-3 5 he had labs done yesterday his BUN was elevated over 100 and his creatinine was up to 4.1. He does state he continues to make urine. He denies chest or abdominal pain. Associated symptoms: fever Review of Systems Const: Denies: fever(s), chills, body aches, change in appetite, fatigue or malaise ENMT: Denies: throat pain, ear or mastoid pain, nasal discharge or nasal congestion Card: Denies: chest pain, edema, dyspnea on exertion or orthopnea Resp: Denies: dyspnea, productive cough or non-productive cough GI: Denies: abdominal pain, nausea, vomiting, hematemesis, coffee ground emesis, diarrhea, constipation, bloating, hematochezia or melena : Denies: flank pain, dysuria, urinary frequency or urinary urgency Skin/Breast: Denies: rash or pruritus PFSH ED PFSH: Medical History Abdominal ascites Abnormal abdominal CT scan Acute non-ST segment elevation myocardial infarction (NSTEMI) following previous myocardial infarction Allergic rhinitis due to allergen Anemia, chronic renal failure CAD (coronary artery disease) remote CABG, NSTEMI, Stents 07/2021 CHF (congestive heart failure) Chronic GERD Chronic nausea CKD stage 4 due to type 2 diabetes mellitus COPD (chronic obstructive pulmonary disease) Current non-smoker Quit 06/28/2021 after 57 years at 1.5 packs/day Diabetes mellitus, type II Duodenal ulcer Essential hypertension Gout Hypercholesterolemia Inflammatory monoarthritis of right wrist Ischemic cardiomyopathy ORA on CPAP Postprandial abdominal bloating Sinus node dysfunction Swelling of joint, wrist, right Surgical History History of appendectomy History of coronary artery stent placement Hx of CABG Family History Father Cancer Mother Diabetes Heart attack Social History Smoking and tobacco status: former smoker Quit status (tobacco): has quit using tobacco Year quit tobacco: June 2021 Former quit date comment: 1.5ppd x 57years Alcohol intake: current Alcohol intake frequency: holidays/special occasions only Alcohol type: beer Substance/Drug Use: never Desire information about substance/drug rehabilitation?: No Caregiver/support person: No Lives independently: Yes Household members: spouse Marital status: Number of children: 2 service: No Current occupational status: retired and disabled Do you think of yourself as: Straight/Heterosexual Current gender identity: Male Physical Exam Const: GENERAL APPEARANCE: cooperative and comfortable ORIENTATION/CONSCIOUSNESS: Yes awake, Yes oriented to person, Yes oriented to place and Yes oriented to time HENMT: COMMON NORMALS: normocephalic, atraumatic and hearing grossly normal bilaterally HEAD & SCALP: normocephalic and atraumatic Resp: COMMON NORMALS: normal respiratory effort, No retractions, No use of accessory muscles and clear to auscultation bilaterally AUSCULTATION: clear to auscultation bilaterally Cardio: COMMON NORMALS: regular rate, regular rhythm and No murmurs present (Cardio) RATE: regular rate RHYTHM: regular rhythm GI: COMMON NORMALS: Soft to palpation and No hepatosplenomegaly present AUSCULTATION: Yes normoactive bowel sounds PALPATION: Yes Soft to palpation, No Tenderness to palpation present (GI), No Guarding due to palpation present (GI) and Yes No hepatosplenomegaly present Extremity: COMMON NORMALS: normal to inspection, capillary refill normal, no clubbing, cyanosis or edema, no calf tenderness and no pedal edema Neuro: SENSORIUM/ORIENTATION: Yes oriented to person, Yes oriented to place and Yes oriented to time Skin: COMMON NORMALS: no rashes or lesions noted GENERAL SKIN EXAM: no rashes or lesions noted Course Vital Signs: Vital signs: Vital Signs Temperature 98.3 F 03/24/23 11:56 Pulse Rate 70 03/24/23 16:30 Respiratory Rate 17 03/24/23 11:56 Blood Pressure 166/64 03/24/23 16:30 Pulse Oximetry 96 03/24/23 16:30 Oxygen Delivery Me thod Room Air 03/24/23 14:30 MDM - Recheck/Abnormal Lab/Rx Medical Decision Making Patient states he feels fine improved some after fluids BUN is still elevated we will have him hold Bumex and recheck with his primary care doctor and maintenance advisor in the next 1 to 2 days for repeat lab work. Return if is further problems. Creatinine is already improved to the upper end of where his baseline seems to have been will require further monitoring. Medical Records I reviewed the patient's medical records. Lab Data I reviewed the patient's lab results. 03/24/23 12:25 03/24/23 16:00 Laboratory Results WBC 10.2 10^3/uL (4.0-10.0) H 03/24/23 12:25 RBC 2.75 10^6/uL (4.1-5.3) L 03/24/23 12:25 Hgb 8.5 g/dL (11.7-16.6) L 03/24/23 12:25 Hct 26.4 % (42.0-52.0) L 03/24/23 12:25 MCV 96.0 fl (80-94) H 03/24/23 12:25 MCH 30.9 pg (28.0-34.0) 03/24/23 12:25 MCHC 32.2 g/dL (30.0-36.0) 03/24/23 12:25 RDW 13.5 % (12.1-15.1) 03/24/23 12:25 Plt Count 231 10^3/cmm (130-400) 03/24/23 12:25 MPV 10.7 fL (7.4-10.4) H 03/24/23 12:25 Neut % (Auto) 80.0 % 03/24/23 12:25 Lymph % (Auto) 9.8 % 03/24/23 12:25 [place] % (Auto) 7.5 % 03/24/23 12:25 Eos % (Auto) 2.1 % 03/24/23 12:25 Baso % (Auto) 0.2 % 03/24/23 12:25 Neut # (Auto) 8.15 10^3/uL (1.8-7.7) H 03/24/23 12:25 Lymph # (Auto) 1.0 10^3/uL (0.8-4.8) 03/24/23 12:25 [place] # (Auto) 0.8 10^3/uL (0.2-0.9) 03/24/23 12:25 Eos # (Auto) 0.2 10^3/uL (0.0-0.8) 03/24/23 12:25 Baso # (Auto) 0.0 10^3/uL (0.0-0.1) 03/24/23 12:25 Nucleated RBC % (auto) 0 % 03/24/23 12:25 Nucleated RBCs # 0.0 /100WBC 03/24/23 12:25 Sodium 141 mmol/L (136-145) 03/24/23 16:00 Potassium 4.1 mmol/L (3.5-5.1) 03/24/23 16:00 Chloride 104 mmol/L (98-107) 03/24/23 16:00 Carbon Dioxide 27 mmol/L (22-29) 03/24/23 16:00 Anion Gap 14.1 (5-19) 03/24/23 16:00 BUN 100 mg/dL (8-23) H* 03/24/23 16:00 Creatinine 3.5 mg/dL (0.7-1.2) H 03/24/23 16:00 GFR Calculation 17.5 mL/min (90-130) L 03/24/23 16:00 Glucose 179 mg/dL (65-115) H 03/24/23 16:00 Calculated Osmolality 328 mOsm/kg (285-295) H 03/24/23 16:00 Calcium 8.6 mg/dL (8.5-10.5) 03/24/23 16:00 Total Bilirubin 0.2 mg/dL (0.15-1.2) 03/24/23 12:25 AST 14 U/L (0-40) 03/24/23 12:25 ALT 12 U/L (0-41) 03/24/23 12:25 Alkaline Phosphatase 95 U/L (40-130) 03/24/23 12:25 Total Protein 6.4 g/dL (6.6-8.7) L 03/24/23 12:25 Albumin 3.8 g/dL (3.5-5.2) 03/24/23 12:25 Globulin 2.6 g/dL (1.3-4.6) 03/24/23 12:25 Urine Color Yellow (Yellow) 03/24/23 12:50 Urine Appearance Clear (CLEAR) 03/24/23 12:50 Urine pH 5 (5-7) 03/24/23 12:50 Ur Specific [place] 1.010 (1.005-1.030) 03/24/23 12:50 Urine Protein 1+ (Negative) H 03/24/23 12:50 Urine Glucose (UA) Trace (Normal) H 03/24/23 12:50 Urine Ketones Negative (Negative) 03/24/23 12:50 Urine Blood Neg (Negative) 03/24/23 12:50 Urine Nitrate Negative (Negative) 03/24/23 12:50 Urine Bilirubin Neg (Negative) 03/24/23 12:50 Urine Urobilinogen Norm mg/dL (Negative) 03/24/23 12:50 Ur Leukocyte Esterase Negative (Negative) 03/24/23 12:50 Urine RBC 0-4 /hpf (0-2) H 03/24/23 12:50 Urine WBC 0-4 /hpf (0-5) H 03/24/23 12:50 Ur Squamous Epith Cells 0-4 /hpf (0-5) H 03/24/23 12:50 Amorphous Sediment Not Reportable 03/24/23 12:50 Urine Bacteria None /hpf (NONE) 03/24/23 12:50 Discharge Plan Discharge Patient Disposition: Home Clinical Impression: CKD stage 4 due to type 2 diabetes mellitus, CHF (congestive heart failure) Condition: Stable Prescriptions: Held bumetanide 1 mg tablet 1 mg PO Q12H Qty: 60 5RF Hold Instructions: Resume on 11/09/22. Rx Instructions: 340 B medications No Action ascorbic acid (vitamin C) [Vitamin C] 500 mg tablet 500 mg PO QAM Qty: 100 5RF Rx Instructions: 340 B medications aspirin 81 mg tablet,delayed release (DR/EC) 81 mg PO QAM 90 Days Qty: 90 3RF Rx Instructions: 340 B medications vitamin E 400 unit capsule 400 unit PO QAM Qty: 90 3RF Rx Instructions: 340 B medications (DME) One touch test strips 100 See Rx Instructions .Route .MEDSUPPLY Qty: 3 5RF Rx Instructions: As directed Glucose testing strips three times daily on Insulin vitamin B complex Tablet 1 tab PO DAILY Klor-Con M20 20 mEq tablet,ER particles/crystals See Rx Instructions .ROUTE .COMPLEX Rx Instructions: 20 mEq orally ;1 tab daily. Take 2 tabs and Wednesday metolazone 2.5 mg tablet 2.5 mg PO .twice a week Patient Comments: tuesdays and fridays Stool Softener 50 mg capsule 100 mg PO BID EyeProtect [id number],160-113-100 urpl-jl-twxp tablet 1 tab PO DAILY metoprolol tartrate 50 mg tablet 50 mg PO BID allopurinol 100 mg tablet 100 mg PO DAILY 30 Days Qty: 30 5RF Hold Instructions: Resume on 11/09/22. ferrous sulfate [FeroSul] 325 mg (65 mg iron) tablet 325 mg PO DAILY isosorbide mononitrate 30 mg tablet extended release 24 hr 30 mg PO BID 90 Days Qty: 180 1RF Rx Instructions: 340 B medications metoclopramide HCl 10 mg tablet 10 mg PO TID nitroglycerin [Nitrostat] 0.4 mg tablet, sublingual 0.4 mg sublingual Q5M PRN (Reason: chest pain) Qty: 25 3RF Rx Instructions: do not exceed 3 doses per episode 340 B medications (DME) Dexcom G6 Casing Trimmer Misc See Rx Instructions .ROUTE .MEDSUPPLY Qty: 1 3RF Rx Instructions: change every 90 days (DME) Dexcom G6 Sensor Device See Rx Instructions .ROUTE .MEDSUPPLY Qty: 9 3RF Rx Instructions: change every 10 days (DME) Dexcom G6 Transmitter Device See Rx Instructions .ROUTE .MEDSUPPLY Qty: 1 3RF Rx Instructions: change every 3 months (DME) FreeStyle Elli 2 Sensor Kit See Rx Instructions .ROUTE .MEDSUPPLY Qty: 6 2RF Rx Instructions: change every 14 days (DME) FreeStyle Elli 2 [place] Misc See Rx Instructions .Route Qty: 1 0RF Rx Instructions: As directed Symbicort 80-4.5 mcg/actuation HFA aerosol inhaler 2 inh inhalation BID 30 Days Qty: 10.2 5RF Rx Instructions: 340 B medications pantoprazole 40 mg tablet,delayed release (DR/EC) 40 mg PO BID Qty: 60 5RF hydralazine 50 mg tablet 50 mg PO BID Qty: 180 1RF tramadol 50 mg tablet 50 mg PO Q8H PRN (Reason: pain) 15 Days Qty: 45 1RF atorvastatin 40 mg tablet 40 mg PO BID prazosin 1 mg capsule 1 mg PO BID loratadine 10 mg Tablet 10 mg PO DAILY simethicone 250 mg capsule 250 mg PO TID PRN (Reason: Gastrointestinal Spasms Or Cramping) triamcinolone acetonide 0.025 % cream 1 applic topical DAILY PRN (Reason: Rash) insulin aspart U-100 [Novolog FlexPen U-100 Insulin] 100 unit/mL (3 mL) insulin pen See Rx Instructions .ROUTE .COMPLEX Rx Instructions: sliding scale- max of 45 units insulin glargine [Lantus Solostar U-100 Insulin] 100 unit/mL (3 mL) insulin pen 12 unit SUBCUT DAILY cholecalciferol (vitamin D3) [Vitamin D3] 50 mcg (2,000 unit) Capsule 100 mcg PO DAILY Discharge Orders: Discharge ED (Routine); Ordered 03/24/23 Ordered By: Brian Fallon Referrals: Donavan Clemons MD [Primary Care Provider] - Discharge Diet: Usual diet Discharge Activity: Increase activity as tolerated Patient Instructions: Opioid Safety, Pain Management Activity Restrictions/Additional Instructions: Hold your Lasix and metaxalone. Follow-up with your doctor within the next week to reevaluate. Coding Level of Care Code ED Stunner Animal for Hong Cunningham
--- NOTE | 2023-03-24 12:34 | ECG_ITS ---
[facility] Test Date: 2023-03-24 Pat Name: Luis Alfredo Thompson Department: Room: Gender: Male Campaign Associate: : 1955 Requested By: Brian Manzo Order Number: [id number] Jack MD: Hemanth Hernandez M.D. Measurements Intervals [place] Rate: 70 P: 84 GA: 201 QRS: -50 QRSD: 128 T: 131 QT: 433 QTc: 469 Interpretive Statements SINUS RHYTHM WITH FREQUENT VENTRICULAR PREMATURE COMPLEXES IN A BIGEMINAL PATTERN LEFT AXIS DEVIATION [QRS AXIS < -30] LEFT VENTRICULAR HYPERTROPHY AND ST-T CHANGE [VOLTAGE CRITERIA PLUS ST/T ABNORMALITY] POSSIBLE LATERAL MYOCARDIAL INFARCTION , OF INDETERMINATE AGE [30 ms Q WAVE IN I/aVL/V5/V6] Compared to ECG 11/06/2022 18:26:10 Left-axis deviation now present Left ventricular hypertrophy now present ST (T wave) deviation now present Myocardial infarct finding now present Intraventricular conduction delay no longer present Electronically Signed On 03-24-2023 14:44:54 CDT by Hemanth Hernandez M.D. [id number]
--- NOTE | 2023-03-24 12:34 | XR_ITS ---
WS: [id number] Portable AP upright chest, 03/24/2023 Clinical Data: dyspnea/cough Comparison: Portable chest, 11/06/2022 Findings: No nodules, masses or effusions are seen. The heart is slightly enlarged. The pulmonary vas cularity is not increased. No pneumonia or pneumothorax is seen. There are midline sternotomy sutures . The aortic arch and descending thoracic aorta show calcification and tortuosity. There are cardiac stents in position. Impression: Atherosclerosis and cardiomegaly.
[2023-03-24 12:44] LABS: Basophils % 0.2 %; Eosinophils # 0.2 10^3/uL (0.0-0.8); Eosinophils % 2.1 %; Hematocrit 26.4 % (42.0-52.0); Hemoglobin 8.5 g/dL (11.7-16.6); Lymphocytes % 9.8 %; Mean Corpuscular HGB Conc 32.2 g/dL (30.0-36.0); Mean Corpuscular Hemoglobin 30.9 pg (28.0-34.0); Mean Platelet Volume 10.7 fL (7.4-10.4); Monocytes # 0.8 10^3/uL (0.2-0.9); Monocytes % 7.5 %; Neutrophils # 8.15 10^3/uL (1.8-7.7); Nucleated Red Blood Cells % 0 %; Platelet Count 231 10^3/cmm (130-400); Red Blood Count 2.75 10^6/uL (4.1-5.3); Red Cell Distribution Width 13.5 % (12.1-15.1); White Blood Count 10.2 10^3/uL (4.0-10.0)
[2023-03-24] MEDS: sodium chloride 0.9% 1,000 ML 999 ML IV ×2 (12:57→14:57)
[2023-03-24 13:03] LABS: Alanine Aminotransferase 12 U/L (0-41); Albumin Level 3.8 g/dL (3.5-5.2); Alkaline Phosphatase 95 U/L (40-130); Anion Gap 17.4 (5-19); Aspartate Amino Transferase 14 U/L (0-40); Calcium 9.3 mg/dL (8.5-10.5); Carbon Dioxide 27 mmol/L (22-29); Chloride 96 mmol/L (98-107); Globulin 2.6 g/dL (1.3-4.6); Glomerular Filtration Rate 15.9 mL/min (90-130); Glucose 380 mg/dL (65-115); Osmolality Calculated 332 mOsm/kg (285-295); Potassium 4.4 mmol/L (3.5-5.1); Sodium 136 mmol/L (136-145); Total Bilirubin 0.2 mg/dL (0.15-1.2); Total Protein 6.4 g/dL (6.6-8.7)
[2023-03-24 13:08] LABS: Blood Urea Nitrogen 108 mg/dL (8-23)
[2023-03-24 14:16] LABS: Add Urine Culture? No; Add Urine Microscopic? YES; Bilirubin Urine Neg (Negative); Blood Urine Neg (Negative); Glucose Urine UA Trace (Normal); Ketones Urine Negative (Negative); Leukocyte Esterase Urine Negative (Negative); Nitrate Urine Negative (Negative); Protein Urine 1+ (Negative); RBC Urine 0-4 /hpf (0-2); Squamous Epithelial Cell Urine 0-4 /hpf (0-5); Urine Appearance Clear (CLEAR); Urine Color Yellow (Yellow); Urobilinogen Urine Norm (Negative); WBC Urine 0-4 /hpf (0-5); pH Urine 5 (5-7)
[2023-03-24 16:30] LABS: Calcium 8.6 mg/dL (8.5-10.5); Carbon Dioxide 27 mmol/L (22-29); Chloride 104 mmol/L (98-107); Glomerular Filtration Rate 17.5 mL/min (90-130); Glucose 179 mg/dL (65-115); Osmolality Calculated 328 mOsm/kg (285-295); Sodium 141 mmol/L (136-145)
[2023-03-24 16:34] LABS: Anion Gap 14.1 (5-19); Potassium 4.1 mmol/L (3.5-5.1)
[2023-03-24 16:35] LABS: Blood Urea Nitrogen 100 mg/dL (8-23)
== END 2023-03-24 16:57 | disposition home or self-care (01) ==
PROVIDERS: Emergency Provider Family Medicine; PCP Family Medicine Adult Medicine
DX: I13.0 Hypertensive heart and chronic kidney disease with heart failure and stage 1 through stage 4 chronic kidney disease, or unspecified chronic kidney disease (principal); E11.22 Type 2 diabetes mellitus with diabetic chronic kidney disease; N18.4 Chronic kidney disease, stage 4 (severe); I50.9 Heart failure, unspecified; Z79.82 Long term (current) use of aspirin; Z79.4 Long term (current) use of insulin; Z87.891 Personal history of nicotine dependence; I25.10 Atherosclerotic heart disease of native coronary artery without angina pectoris; I25.2 Old myocardial infarction; Z95.1 Presence of aortocoronary bypass graft
CPT/HCPCS: 71045; 80048; 80053; 81001; 85025; 93005; 96360; 96361; 99285; J7030

== ENCOUNTER → 2023-03-31 12:50 | Outpatient (BNVA) | payer MEDICARE, SELFPAY | PROVIDERS: PCP Family Medicine Adult Medicine; Visit Provider Internal Medicine | DX: E11.65 Type 2 diabetes mellitus with hyperglycemia (principal); E78.2 Mixed hyperlipidemia; E11.22 Type 2 diabetes mellitus with diabetic chronic kidney disease; N18.4 Chronic kidney disease, stage 4 (severe); Z79.4 Long term (current) use of insulin; J44.9 Chronic obstructive pulmonary disease, unspecified; I50.9 Heart failure, unspecified; N18.30 Chronic kidney disease, stage 3 unspecified; I25.118 Atherosclerotic heart disease of native coronary artery with other forms of angina pectoris | CPT/HCPCS: 99214 ==

== ENCOUNTER → 2023-04-01 14:05 | Outpatient (BNVA) | payer MEDICARE, SELFPAY | PROVIDERS: PCP Family Medicine Adult Medicine; Visit Provider Internal Medicine | DX: I25.700 Atherosclerosis of coronary artery bypass graft(s), unspecified, with unstable angina pectoris (principal); I13.0 Hypertensive heart and chronic kidney disease with heart failure and stage 1 through stage 4 chronic kidney disease, or unspecified chronic kidney disease; E11.22 Type 2 diabetes mellitus with diabetic chronic kidney disease; N18.4 Chronic kidney disease, stage 4 (severe); N17.9 Acute kidney failure, unspecified; I50.9 Heart failure, unspecified; Z87.891 Personal history of nicotine dependence; Z79.4 Long term (current) use of insulin; I45.5 Other specified heart block; Z79.82 Long term (current) use of aspirin | CPT/HCPCS: 99214 ==

== ENCOUNTER 2023-04-07 12:38 | Inpatient (IN) | payer MEDICARE, SELFPAY ==
[2023-04-07] VITALS (12 sets, daily range): BP systolic 110–147; BP diastolic 50–84; PULSE 67–79; RESP 16–20; TEMP 36.5–36.9; O2SAT 96–100; BMI 27.4
--- NOTE | 2023-04-07 12:52 | ECG_ITS ---
[facility] Test Date: 2023-04-07 Pat Name: Luis Alfredo Thompson Department: Room: Gender: Male Brush Head Maker: : 1955 Requested By: Brian Manzo Order Number: [id number] Jack MD: Francis Israel M.D. Measurements Intervals [place] Rate: 67 P: -34 CT: 152 QRS: 119 QRSD: 145 T: 244 QT: 454 QTc: 481 Interpretive Statements SINUS RHYTHM INTRAVENTRICULAR CONDUCTION DELAY [130+ ms QRS DURATION] INFERIOR MYOCARDIAL INFARCTION , OF INDETERMINATE AGE [40+ ms Q WAVE AND/OR ST/T ABNORMALITY IN II/aVF] ST DEPRESSION, CONSIDER SUBENDOCARDIAL INJURY [0.1+ mV ST DEPRESSION] Compared to ECG 03/24/2023 12:57:42 Intraventricular conduction delay now present Ventricular premature complex(es) no longer present Left-axis deviation no longer present Left ventricular hypertrophy no longer present Myocardial infarct finding still present ST (T wave) deviation still present Electronically Signed On 04-08-2023 6:49:29 CDT by Francis Israel M.D. [id number]
--- NOTE | 2023-04-07 13:09 | XR_ITS ---
WS: [id number] Exam: XR chest 1V portable [id number] Date/Time of Exam: 04/07/2023 1:11 PM Reason For Exam: dyspnea Comparison 03/24/2023. The lungs are clear and fully expanded. There is cardiac enlargement. No pleural effusions. Signs of previous CABG surgery and coronary artery stenting. Regional bony structures are intact. Monitoring l eric superimpose the chest. IMPRESSION: 1. Cardiac enlargement and postoperative changes. No acute process.
[2023-04-07 13:31] LABS: Basophils % 0.1 %; Eosinophils # 0.3 10^3/uL (0.0-0.8); Eosinophils % 1.9 %; Lymphocytes # 0.7 10^3/uL (0.8-4.8); Lymphocytes % 4.7 %; Mean Corpuscular HGB Conc 29.8 g/dL (30-55); Mean Corpuscular Hemoglobin 30.7 pg (27-33); Mean Platelet Volume 10.9 fL (7.4-10.4); Monocytes # 0.9 10^3/uL (0.2-0.9); Monocytes % 5.7 %; Neutrophils # 12.93 10^3/uL (1.8-7.7); Neutrophils % 86.3 %; Nucleated Red Blood Cells # 0.1 /100WBC; Nucleated Red Blood Cells % 0.8 %; Platelet Count 339 10^3/cmm (157-399); Red Blood Count 2.02 10^6/uL (3.85-5.65); Red Cell Distribution Width 16.8 % (12.1-15.1); White Blood Count 14.98 10^3/uL (3.29-11.43)
--- NOTE | 2023-04-07 13:40 | W.ED.WEAKNES ---
HPI - Weakness General: Chief complaint: Weakness Stated complaint: sob , weakness Time Seen by Provider: 04/07/23 13:09 History of Present Illness: To the ER with shortness of breath and weakness. Patient says been feeling this way for several weeks. Patient states the last time he was to the ER he had his diuretic stopped and was given 2 L of fluid. And has progressively went downhill since then. Patient has seen his lung doctor, kidney doctor, and heart doctor, since then he has restarted back on his diuretics and they say he has been retaining fluid. Patient's says patient is normally able to get up out of bed and go and travel and do normal activities and now all he wants to do his stay in bed or sit on the couch because when he gets up and start moving often he has his chest pain weakness and shortness of breath now. Review of Systems General: Reports: 10 or more systems reviewed and unremarkable except in HPI and below PFSH ED PFSH: Medical History Abdominal ascites Abnormal abdominal CT scan Acute non-ST segment elevation myocardial infarction (NSTEMI) following previous myocardial infarction Allergic rhinitis due to allergen Anemia, chronic renal failure CAD (coronary artery disease) remote CABG, NSTEMI, Stents 07/2021 CHF (congestive heart failure) Chronic GERD Chronic nausea CKD stage 4 due to type 2 diabetes mellitus COPD (chronic obstructive pulmonary disease) Current non-smoker Quit 06/28/2021 after 57 years at 1.5 packs/day Diabetes mellitus, type II Duodenal ulcer Essential hypertension Gout Hypercholesterolemia Inflammatory monoarthritis of right wrist Ischemic cardiomyopathy ORA on CPAP Postprandial abdominal bloating Sinus node dysfunction Swelling of joint, wrist, right Surgical History History of appendectomy History of coronary artery stent placement Hx of CABG Family History Father Cancer Mother Diabetes Heart attack Social History Smoking and tobacco status: former smoker Quit status (tobacco): has quit using tobacco Year quit tobacco: June 2021 Former quit date comment: 1.5ppd x 57years Alcohol intake: current Alcohol intake frequency: holidays/special occasions only Alcohol type: beer Substance/Drug Use: never Desire information about substance/drug rehabilitation?: No Caregiver/support person: No Lives independently: Yes Household members: spouse Marital status: Number of children: 2 service: No Current occupational status: retired and disabled Do you think of yourself as: Straight/Heterosexual Current gender identity: Male Physical Exam Const: COMMON NORMALS: no acute distress, average body habitus, patient oriented x3, no limitations, healthy appearing, alert and well nourished HENMT: COMMON NORMALS: normocephalic, atraumatic, hearing grossly normal bilaterally, external ears normal, Normal external nose present and moist oral mucous membranes HEAD & SCALP: normocephalic and atraumatic NOSE: Normal external nose present EXTERNAL EAR: Yes external ears normal Eye: COMMON NORMALS: Equal, round and reactive pupils present, EOMs intact bilaterally, conjunctivae normal and no scleral icterus CONJUNCTIVA: Yes conjunctivae normal PUPIL: Yes Equal, round and reactive pupils present Neck/C-Spine: COMMON NORMALS: full ROM, no lymphadenopathy, supple, no meningeal signs, no JVD and Thyroid normal THYROID: Thyroid normal Lymph: LYMPHATIC: no lymphadenopathy noted Chest: COMMONS NORMALS: normal inspection of the chest and normal palpation of entire chest wall Resp: COMMON NORMALS: normal respiratory effort, No retractions, No use of accessory muscles and clear to auscultation bilaterally AUSCULTATION: clear to auscultation bilaterally Cardio: COMMON NORMALS: no JVD, regular rate, regular rhythm, S1 normal heart sound present, S2 normal heart sound present, No gallops present (Cardio), No clicks present (Cardio), No murmurs present (Cardio) and No rub (Cardio) RATE: regular rate RHYTHM: regular rhythm HEART SOUNDS: S1 normal heart sound present and S2 normal heart sound present GI: COMMON NORMALS: Normal to inspection, nondistended, normoactive bowel sounds present, Soft to palpation, non-tender, No hepatosplenomegaly present and no masses PALPATION: Yes Soft to palpation and Yes No hepatosplenomegaly present : COMMON NORMALS: Yes no CVA tenderness BLADDER/KIDNEY EXAM: Yes no CVA tenderness Back/Pelvis: COMMON NORMALS: no CVA tenderness Neuro: COMMON NORMALS: patient oriented x3 SENSORIUM/ORIENTATION: Yes alert MENINGEAL SIGNS: Yes no meningeal signs Course Vital Signs: Vital signs: Vital Signs Temperature 97.8 F 04/07/23 12:49 Pulse Rate 67 04/07/23 14:33 Respiratory Rate 17 04/07/23 14:33 Blood Pressure 121/50 04/07/23 14:33 Pulse Oximetry 100 04/07/23 14:33 Oxygen Delivery Me thod Room Air 04/07/23 12:49 Oxygen Flow Rate 2.5 04/07/23 14:33 MDM - Weakness Medical Decision Making Presents to the ER with complaints of worsening shortness of breath and intermittent chest pain requiring 4-5 nitro a day for at least the last several days. Lab work was obtained which showed patient had elevated white count of 14.98 but a reduced hemoglobin of 6.2 with hematocrit of 20.8 BUN was raised at 142 and creatinine of 4.0. Troponin was elevated at approximately 240. Had serial EKGs and serial troponins. Dr. Charles was consulted and agreed to admit the patient to [facility] for further evaluation testing. Dr. Israel was consulted and notified that the patient would be admitted. Differential Diagnosis Unlikely acute myocardial infarction, anemia, hypoglycemia, hypothyroidism, rhabdomyolysis, sepsis or dehydration Medical Records I reviewed the patient's medical records. Lab Data I reviewed the patient's lab results. 04/07/23 13:10 04/07/23 13:10 Laboratory Results WBC 14.98 10^3/uL (3.29-11.43) H 04/07/23 13:10 RBC 2.02 10^6/uL (3.85-5.65) L 04/07/23 13:10 Hgb 6.20 g/dL (11.27-16.99) L* 04/07/23 13:10 Hct 20.8 % (37-53) L* 04/07/23 13:10 MCV 103.0 fl (82-101) H 04/07/23 13:10 MCH 30.7 pg (27-33) 04/07/23 13:10 MCHC 29.8 g/dL (30-55) L 04/07/23 13:10 RDW 16.8 % (12.1-15.1) H 04/07/23 13:10 Plt Count 339 10^3/cmm (157-399) 04/07/23 13:10 MPV 10.9 fL (7.4-10.4) H 04/07/23 13:10 Neut % (Auto) 86.3 % 04/07/23 13:10 Lymph % (Auto) 4.7 % 04/07/23 13:10 [place] % (Auto) 5.7 % 04/07/23 13:10 Eos % (Auto) 1.9 % 04/07/23 13:10 Baso % (Auto) 0.1 % 04/07/23 13:10 Neut # (Auto) 12.93 10^3/uL (1.8-7.7) H 04/07/23 13:10 Lymph # (Auto) 0.7 10^3/uL (0.8-4.8) L 04/07/23 13:10 [place] # (Auto) 0.9 10^3/uL (0.2-0.9) 04/07/23 13:10 Eos # (Auto) 0.3 10^3/uL (0.0-0.8) 04/07/23 13:10 Baso # (Auto) 0.0 10^3/uL (0.0-0.1) 04/07/23 13:10 Nucleated RBC % (auto) 0.8 % 04/07/23 13:10 Nucleated RBCs # 0.1 /100WBC 04/07/23 13:10 Sodium 136 mmol/L (136-145) 04/07/23 13:10 Potassium 4.4 mmol/L (3.5-5.1) 04/07/23 13:10 Chloride 97 mmol/L (98-107) L 04/07/23 13:10 Carbon Dioxide 23 mmol/L (22-29) 04/07/23 13:10 Anion Gap 20.4 (5-19) H 04/07/23 13:10 BUN 142 mg/dL (8-23) H* 04/07/23 13:10 Creatinine 4.0 mg/dL (0.7-1.2) H 04/07/23 13:10 GFR Calculation 15.0 mL/min (90-130) L 04/07/23 13:10 Glucose 310 mg/dL (65-115) H 04/07/23 13:10 Calculated Osmolality 340 mOsm/kg (285-295) H 04/07/23 13:10 Calcium 8.6 mg/dL (8.5-10.5) 04/07/23 13:10 Phosphorus 5.0 mg/dL (2.5-4.5) H 04/07/23 13:10 Magnesium 2.2 mg/dL (1.7-2.3) 04/07/23 13:10 Total Bilirubin 0.4 mg/dL (0.15-1.2) 04/07/23 13:10 AST 22 U/L (0-40) 04/07/23 13:10 ALT 25 U/L (0-41) 04/07/23 13:10 Alkaline Phosphatase 107 U/L (40-130) 04/07/23 13:10 Troponin T Baseline 253 ng/L (0-15) H* 04/07/23 13:10 NT-Pro-B Natriuret Pep 44340 pg/mL (0-125) H 04/07/23 13:10 Total Protein 5.7 g/dL (6.6-8.7) L 04/07/23 13:10 Albumin 3.6 g/dL (3.5-5.2) 04/07/23 13:10 Globulin 2.1 g/dL (1.3-4.6) 04/07/23 13:10 Urine Color Yellow (Yellow) 04/07/23 15:57 Urine Appearance Clear (CLEAR) 04/07/23 15:57 Urine pH 5 (5-7) 04/07/23 15:57 Ur Specific [place] 1.010 (1.005-1.030) 04/07/23 15:57 Urine Protein Neg (Negative) 04/07/23 15:57 Urine Glucose (UA) Norm (Normal) 04/07/23 15:57 Urine Ketones Negative (Negative) 04/07/23 15:57 Urine Blood Neg (Negative) 04/07/23 15:57 Urine Nitrate Negative (Negative) 04/07/23 15:57 Urine Bilirubin Neg (Negative) 04/07/23 15:57 Urine Urobilinogen Norm mg/dL (Negative) 04/07/23 15:57 Ur Leukocyte Esterase Negative (Negative) 04/07/23 15:57 EKG Data EKG 1: I personally reviewed and interpreted this EKG as follows: EKG interpretation date: 04/07/23 EKG interpretation time: 12:55 Prior EKG tracings: not available for review Interpretation: EKG showed ventricular rate 67 beats a minute, FL interval 152, QRS 145, QTc 481, sinus rhythm, intraventricular conduction delay, Q waves or ST changes in [address] depression present. EKG 2: I personally reviewed and interpreted this EKG as follows: EKG interpretation date: 04/07/23 EKG interpretation time: 14:59 Prior EKG tracings: available for review Interpretation: EKG showed ventricular rate 67 beats a minute, FL interval 166, QRS duration 136, QTc of 468, sinus rhythm with occasional PVC, left axis deviation, intraventricular conduction delay, Discharge Plan Discharge Patient Disposition: Placed in Observation Admit Provider: Dusty Charles Clinical Impression: CKD stage 4 due to type 2 diabetes mellitus, Elevated troponin, Weakness generalized, Acute dyspnea Anemia, chronic renal failure Qualifiers: Chronic kidney disease stage: unspecified stage Qualified Code(s): N18.9 - Chronic kidney disease, unspecified Coding Level of Care Code ED Financial Sales Representative for Hong Cunningham
[2023-04-07 14:25] LABS: Troponin(5th) Baseline 253 ng/L (0-15)
[2023-04-07 14:29] LABS: Alanine Aminotransferase 25 U/L (0-41); Albumin Level 3.6 g/dL (3.5-5.2); Alkaline Phosphatase 107 U/L (40-130); Anion Gap 20.4 (5-19); Aspartate Amino Transferase 22 U/L (0-40); Calcium 8.6 mg/dL (8.5-10.5); Carbon Dioxide 23 mmol/L (22-29); Chloride 97 mmol/L (98-107); Globulin 2.1 g/dL (1.3-4.6); Glucose 310 mg/dL (65-115); Magnesium 2.2 mg/dL (1.7-2.3); Potassium 4.4 mmol/L (3.5-5.1); Sodium 136 mmol/L (136-145); Total Bilirubin 0.4 mg/dL (0.15-1.2); Total Protein 5.7 g/dL (6.6-8.7)
[2023-04-07 14:35] LABS: Hematocrit 20.8 % (37-53)
[2023-04-07 14:46] LABS: Osmolality Calculated 340 mOsm/kg (285-295)
[2023-04-07 14:51] LABS: Blood Urea Nitrogen 142 mg/dL (8-23)
--- NOTE | 2023-04-07 15:10 | ECG_ITS ---
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 Measurements Intervals [place] Rate: 67 P: 97 GA: 166 QRS: -54 QRSD: 136 T: 181 QT: 453 QTc: 480 Interpretive Statements SINUS RHYTHM WITH OCCASIONAL VENTRICULAR PREMATURE COMPLEXES LEFT AXIS DEVIATION [QRS AXIS < -30] INTRAVENTRICULAR CONDUCTION DELAY [130+ ms QRS DURATION] Compared to ECG 04/07/2023 12:55:23 Ventricular premature complex(es) now present Left-axis deviation now present Myocardial infarct finding no longer present ST (T wave) deviation no longer present Electronically Signed On 04-08-2023 6:50:09 CDT by Francis Israel M.D. [id number]
--- NOTE | 2023-04-07 16:14 | PC.NURSE ---
Tried to call report to CSU and was told by Will the nurse was not on the floor and that they would call me back in a little while.
[2023-04-07 16:19] LABS: Add Urine Microscopic? NO; Charge for UA Resulting for Rev
[2023-04-07 16:23] LABS: Bilirubin Urine Neg (Negative); Blood Urine Neg (Negative); Glucose Urine UA Norm (Normal); Ketones Urine Negative (Negative); Leukocyte Esterase Urine Negative (Negative); Nitrate Urine Negative (Negative); Protein Urine Neg (Negative); Urine Appearance Clear (CLEAR); Urine Color Yellow (Yellow); Urobilinogen Urine Norm (Negative); pH Urine 5 (5-7)
--- NOTE | 2023-04-07 16:28 | P.HP_ITS ---
Providers/Chief Complaint Admitting Physician: Dusty Charles MD Primary Care Provider: Donavan Clemons MD Chief Complaint: sob , weakness History of Present Illness Luis Alfredo Thompson is a 68 year old male is a 68-year-old male with a past medical history significant for coronary artery disease with CABG, COPD with chronic hypoxic respiratory failure, type 2 diabetes mellitus, ischemic cardiomyopathy, chronic kidney disease stage IV, hypertension, and obstructive sleep apnea non- compliant with CPAP who presents to the emergency department with dyspnea and chest pain on exertion. Spouse is bedside and supportive. She provides most of the history with Luis Alfredo occasionally adding details. She describes a progressive declined in functional status that began a few weeks ago that was accelerated after being taken off his water pills by ED provider. She reports they ended up restarting the water pills. She notes he has only had one dose of metolazone since that time. Patient reports minimal exertion, even just a few steps, worsens symptoms causing significant shortness of breath, dyspnea, and chest discomfort. Rest improves symptoms. Endorses associated poor exercise tolerance. Spouse reports patient recently saw his flare breaker, Dr Israel. She states he wants Luis Alfredo to have a stress test done. Spouse states Luis Alfredo is following with Dr Aguilera, slot floorman out of [place]. They have plans to start dialysis soon. They have an appointment to discuss the initiation of dialysis further on April 13. They seem unsure of the modality and further details. She does note an interest in possible home dialysis options. He denies having a fistula or dialysis line. She states Dr Aguilera office faxed a request to Dr Huynh office regarding an infusion she would like patient started on. Spouse does not currently recall the name of the medication. Review of Systems Narrative: A complete review of systems was obtained and is negative except as stated in HPI Medications/Allergies Home Medications Medication Instructions Recorded Confirmed Last Taken Type ascorbic acid (vitamin C) 500 mg 500 mg PO [employer] oNoise #100 tabs 08/22/21 04/07/23 04/07/23 Rx tablet (Vitamin C) aspirin 81 mg tablet,delayed 81 mg PO QAM 90 days #90 tabs 08/22/21 04/07/23 04/07/23 Rx release vitamin E 268 mg (400 unit) capsule 400 unit PO [employer] oNoise #90 caps 08/22/21 04/07/23 04/07/23 Rx loratadine 10 mg tablet 10 mg PO DAILY 08/25/22 04/07/23 04/07/23 History One touch test strips #3 ea 09/01/22 04/07/23 Unknown Rx blood-glucose meter,continuous #1 ea 09/14/22 04/07/23 Unknown Rx (Dexcom G6 Associate Principal) blood-glucose sensor (Dexcom G6 #9 ea 09/14/22 04/07/23 Unknown Rx Sensor device) blood-glucose transmitter (Dexcom #1 ea 09/14/22 04/07/23 Unknown Rx G6 Transmitter device) vitamin B complex 1 tab PO DAILY 09/29/22 04/07/23 04/07/23 History flash glucose scanning reader #1 ea 10/05/22 04/07/23 Unknown Rx (FreeStyle Elli 2 Rayne) flash glucose sensor (FreeStyle #6 ea 10/05/22 04/07/23 Unknown Rx Elli 2 Sensor kit) budesonide-formoterol HFA 80 2 inh inhalation BID lungs & 10/14/22 04/07/23 03/24/23 Rx mcg-4.5 mcg/actuation aerosol breathing 30 days #10.2 grams inhaler (Symbicort) potassium chloride 20 mEq See Rx Instructions .Route .COMPLEX 11/18/22 04/07/23 04/07/23 History tablet,extended release(part/cryst) (Klor-Con M) docusate sodium 50 mg capsule 100 mg PO BID 12/08/22 04/07/23 04/07/23 History (Stool Softener) metoprolol tartrate 50 mg tablet 50 mg PO BID blood pressure 12/08/22 04/07/23 04/07/23 History prazosin 1 mg capsule 1 mg PO BID 12/08/22 04/07/23 04/07/23 History simethicone 250 mg capsule 250 mg PO TID PRN Gastrointestinal 12/08/22 04/07/23 01/24/23 History Spasms Or Cramping vit A 7,160 unit-vit C 113 mg-vit 1 tab PO DAILY 12/08/22 04/07/23 04/07/23 History E 100 ekmk-mekb-ihuvsk tablet (EyeProtect) hydralazine 50 mg tablet 50 mg PO BID blood Pressure #180 12/14/22 04/07/23 04/07/23 Rx tabs allopurinol 100 mg tablet 100 mg PO DAILY gout 30 days #30 12/17/22 04/07/23 04/07/23 Rx tabs insulin aspart U-100 100 unit/mL See Rx Instructions .Route .COMPLEX 01/22/23 04/07/23 04/07/23 History (3 mL) subcutaneous pen (Novolog FlexPen U-100 Insulin aspart) insulin glargine 100 unit/mL (3 13 unit SUBCUT DAILY 01/22/23 04/07/23 04/07/23 History mL) subcutaneous pen (Lantus Solostar U-100 Insulin) triamcinolone acetonide 0.025 % 1 applic topical DAILY PRN Rash 01/22/23 04/07/23 Unknown History topical cream cholecalciferol (vitamin D3) 50 100 mcg PO DAILY 01/25/23 04/07/23 04/07/23 History mcg (2,000 unit) capsule (Vitamin D3) tramadol 50 mg tablet 50 mg PO Q8H PRN pain 15 days #45 02/10/23 04/07/23 Unknown Rx tabs ferrous sulfate 325 mg (65 mg 325 mg PO DAILY 02/11/23 04/07/23 04/07/23 History iron) tablet (FeroSul) bumetanide 1 mg tablet 1 mg PO Q12H Heart failure #60 tabs 03/12/23 04/07/23 04/07/23 Rx isosorbide mononitrate 30 mg 30 mg PO BID chest pain 90 days 03/12/23 04/07/23 04/07/23 Rx tablet,extended release 24 hr #180 tabs nitroglycerin 0.4 mg sublingual 0.4 mg sublingual Q5M PRN chest 03/31/23 04/07/23 04/06/23 Rx tablet (Nitrostat) pain #25 tabs atorvastatin 40 mg tablet 40 mg PO BID #60 tabs 04/01/23 04/07/23 04/07/23 Rx metoclopramide HCl 10 mg tablet 10 mg PO TID #90 tabs 04/01/23 04/07/23 04/07/23 Rx metolazone 2.5 mg tablet 2.5 mg PO DAILY PRN Edema 04/01/23 04/07/23 Unknown History pantoprazole 40 mg tablet,delayed 40 mg PO BID acid reflux #60 tabs 04/01/23 04/07/23 04/07/23 Rx release Allergies Allergy/AdvReac Type Severity Reaction Status Date / Time Influenza Virus Vaccines Allergy Severe ADR-Hyperte Verified 04/07/23 12:52 nsion Penicillins Allergy ALGY-Anaphy Verified 04/07/23 12:52 laxis PFSH Acute PFSH: Medical History Abdominal ascites Acute non-ST segment elevation myocardial infarction (NSTEMI) following previous myocardial infarction Allergic rhinitis due to allergen Anemia, chronic renal failure CAD (coronary artery disease) remote CABG, NSTEMI, Stents 07/2021 CHF (congestive heart failure) Chronic GERD Chronic nausea CKD stage 4 due to type 2 diabetes mellitus COPD (chronic obstructive pulmonary disease) Current non-smoker Quit 06/28/2021 after 57 years at 1.5 packs/day Diabetes mellitus, type II Duodenal ulcer Essential hypertension Gout Hypercholesterolemia Hyperlipemia, mixed Inflammatory monoarthritis of right wrist Ischemic cardiomyopathy ORA on CPAP Postprandial abdominal bloating Sinus node dysfunction Swelling of joint, wrist, right Surgical History History of appendectomy History of coronary artery stent placement Hx of CABG Family History Father Cancer Mother Diabetes Heart attack Social History Smoking and tobacco status: former smoker Quit status (tobacco): has quit using tobacco Year quit tobacco: June 2021 Former quit date comment: 1.5ppd x 57years Alcohol intake: current Alcohol intake frequency: holidays/special occasions only Alcohol type: beer Substance/Drug Use: never Desire information about substance/drug rehabilitation?: No Caregiver/support person: No Lives independently: Yes Household members: spouse Marital status: Number of children: 2 service: No Current occupational status: retired and disabled Do you think of yourself as: Straight/Heterosexual Current gender identity: Male Vitals/I&O/Wt Last Vital Signs Temp 97.8 F 04/07/23 12:49 Pulse 67 04/07/23 14:33 Resp 17 04/07/23 14:33 BP 121/50 04/07/23 14:33 Pulse Ox 100 04/07/23 14:33 O2 Del Method Room Air 04/07/23 12:49 O2 Flow Rate 2.5 04/07/23 14:33 Weight last 48 hrs Weight 72.575 kg Physical Exam Narrative: General: Patient is awake. Pleasant. Head: Normocephalic. Atraumatic. EOM intact. Pale mucous membranes. Neck: No JVD. Cardiovascular: Normal S1 ans S1. No gallops. No murmurs. Edema in BLE. Sternotomy scar. Lungs: Breath sounds diminished in bilateral bases. No crackles or wheezes. On supplemental oxygen support. Skin: No jaundice. No rashes. Spider angiomas present. Abdomen: Normal bowel sounds, abdomen soft and nontender. Extremities: No cyanosis or clubbing. Musculoskeletal: No swollen or erythematous joints. Neurological: Moves all 4 extremities. No myoclonus. Data 04/07/23 13:10 04/07/23 13:10 A&P Assessment and plan (1) Elevated troponin: Elevated troponin c/w myocardial injury History not suggestive of acute coronary syndromes Trend troponin Continuous cardiopulmonary monitoring Cardiology consulted in ED Continue aspirin Continue statin Continue Imdur Continue BB (2) Anemia, chronic renal failure: Suspected anemia of CKD/ESRD Transfuse 1 pRBC for now, will need another probably HGB goal of 8 given CAD Transfusing cautiously given renal failure and hypoxia IV Lasix after first transfusion Consider additional transfusion overnight or possibly in AM pending clinical response Qualifiers: Chronic kidney disease stage: unspecified stage Qualified Code(s): N18.9 - Chronic kidney disease, unspecified; D63.1 - Anemia in chronic kidney disease (3) Weakness generalized: Debility and physical deconditioning Likely multifactorial given comorbidities Non-compliant with CPAP Treat underlying anemia, kidney disease, heart failure, etc (4) Acute dyspnea: With chronic hypoxic respiratory failure Multifactorial, treat underlying pathologies (5) CHF (congestive heart failure): Acute on chronic decompensated CHF exacerbation Strict I&Os Daily weights Hold oral Bumex Start Lasix 100 mg IV BID May require Feng Continue BB (6) Diabetes mellitus, type II: Continue Lantus at reduced home dose SSI, lose scale Avoid hypoglycemia Qualifiers: Diabetes mellitus complication status: with hyperglycemia 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 transplanted heart: [place] heart Qualified Code(s): I25.700 - Atherosclerosis of coronary artery bypass graft(s), unspecified, with unstable angina pectoris (8) Essential hypertension: Continue metoprolol Continue hydralazine (9) COPD (chronic obstructive pulmonary disease): No wheezing on exam Rotate to pulmicort DuoNebs PRN Qualifiers: Emphysema type: panlobular Plan DVT ppx: Heparin Code Status: Full Attestations Medical Necessity Statement*: Patient presents w/ SOB, found to have worsening anemia, CHF, MARCELO/CKD-4, and myocardial injury with expected hospitalization not to cross two midnights. Coding Level of Care Code Acute Code for Chg Fwd Diagnoses Elevated troponin R77.8 Anemia, chronic renal failure N18.9; D63.1 Chronic kidney disease stage: unspecified stage Weakness generalized R53.1 Acute dyspnea R06.00 CHF (congestive heart failure) I50.9 Diabetes mellitus, type II E11.65 Diabetes mellitus complication status: with hyperglycemia Diabetes mellitus terminal computer operator insulin use: without shelter use CAD (coronary artery disease) I25.700 Associated angina: with unstable angina Coronary Disease-Associated Artery/Lesion type: bypass graft [place] vs. transplanted heart: [place] heart Essential hypertension I10 COPD (chronic obstructive pulmonary disease) J44.9 Emphysema type: panlobular
[2023-04-07 16:48] LABS: Troponin 5 2HR Delta -4.1 ABS# (0-10)
[2023-04-07 16:49] LABS: Troponin 5 2HR 248.9 ng/L (0-15)
[2023-04-07 17:26] LABS: Glucose Point of Care 221 mg/dL (70-110)
--- NOTE | 2023-04-07 17:51 | PM.CONSULT ---
Providers/Reason For Consult Consulting Physician/Specialty*: Francis Israel MD/ Cardiology Reason for Consult*: Dyspnea/Troponin elevation Requesting Physician: Dr Murray Attending Physician: Dusty Charles MD Primary Care Provider: Donavan Clemons MD History of Present Illness History of Present Illness Luis Alfredo Thompson is a 68 year old male with past medical history of CAD status post CABG and PCI, ischemic cardiomyopathy, CKD who has presented to hospital with dyspnea. His CKD has worsened recently. He is in discussion with nephrology at [facility] for dialysis. According to patient he has been having worsening dyspnea that brought to the hospital. He also feels occasional chest pressure. He was found to have very low hemoglobin of 6.2. His initial troponin was elevated at 253 but has trended down. No active chest pain. Of note he has significant uremia with BUN of 142 Review of Systems Narrative: A complete review of systems was obtained and is negative except as stated in HPI Medications/Allergies Home Medications Medication Instructions Recorded Confirmed Last Taken Type ascorbic acid (vitamin C) 500 mg 500 mg PO [employer] #100 tabs 08/22/21 04/07/23 04/07/23 Rx tablet (Vitamin C) aspirin 81 mg tablet,delayed 81 mg PO QA 90 days #90 tabs 08/22/21 04/07/23 04/07/23 Rx release vitamin E 268 mg (400 unit) capsule 400 unit PO [employer] Simple-Fill #90 caps 08/22/21 04/07/23 04/07/23 Rx loratadine 10 mg tablet 10 mg PO DAILY 08/25/22 04/07/23 04/07/23 History One touch test strips #3 ea 09/01/22 04/07/23 Unknown Rx blood-glucose meter,continuous #1 ea 09/14/22 04/07/23 Unknown Rx (Dexcom G6 [employer]) blood-glucose sensor (Dexcom G6 #9 ea 09/14/22 04/07/23 Unknown Rx Sensor device) blood-glucose transmitter (Dexcom #1 ea 09/14/22 04/07/23 Unknown Rx G6 Transmitter device) vitamin B complex 1 tab PO DAILY 09/29/22 04/07/23 04/07/23 History flash glucose scanning reader #1 ea 10/05/22 04/07/23 Unknown Rx (FreeStyle Elli 2 [place]) flash glucose sensor (FreeStyle #6 ea 10/05/22 04/07/23 Unknown Rx Elli 2 Sensor kit) budesonide-formoterol HFA 80 2 inh inhalation BID lungs & 10/14/22 04/07/23 03/24/23 Rx mcg-4.5 mcg/actuation aerosol breathing 30 days #10.2 grams inhaler (Symbicort) potassium chloride 20 mEq See Rx Instructions .Route .COMPLEX 11/18/22 04/07/23 04/07/23 History tablet,extended release(part/cryst) (Klor-Con M) docusate sodium 50 mg capsule 100 mg PO BID 12/08/22 04/07/23 04/07/23 History (Stool Softener) metoprolol tartrate 50 mg tablet 50 mg PO BID blood pressure 12/08/22 04/07/23 04/07/23 History prazosin 1 mg capsule 1 mg PO BID 12/08/22 04/07/23 04/07/23 History simethicone 250 mg capsule 250 mg PO TID PRN Gastrointestinal 12/08/22 04/07/23 01/24/23 History Spasms Or Cramping vit A 7,160 unit-vit C 113 mg-vit 1 tab PO DAILY 12/08/22 04/07/23 04/07/23 History E 100 [id number] tablet (EyeProtect) hydralazine 50 mg tablet 50 mg PO BID blood Pressure #180 12/14/22 04/07/23 04/07/23 Rx tabs allopurinol 100 mg tablet 100 mg PO DAILY gout 30 days #30 12/17/22 04/07/23 04/07/23 Rx tabs insulin aspart U-100 100 unit/mL See Rx Instructions .Route .COMPLEX 01/22/23 04/07/23 04/07/23 History (3 mL) subcutaneous pen (Novolog FlexPen U-100 Insulin aspart) insulin glargine 100 unit/mL (3 13 unit SUBCUT DAILY 01/22/23 04/07/23 04/07/23 History mL) subcutaneous pen (Lantus Solostar U-100 Insulin) triamcinolone acetonide 0.025 % 1 applic topical DAILY PRN Rash 01/22/23 04/07/23 Unknown History topical cream cholecalciferol (vitamin D3) 50 100 mcg PO DAILY 0604/07/23 04/07/23 History mcg (2,000 unit) capsule (Vitamin D3) tramadol 50 mg tablet 50 mg PO Q8H PRN pain 15 days #45 02/10/23 04/07/23 Unknown Rx tabs ferrous sulfate 325 mg (65 mg 325 mg PO DAILY 02/11/23 04/07/23 04/07/23 History iron) tablet (FeroSul) bumetanide 1 mg tablet 1 mg PO Q12H Heart failure #60 tabs 03/12/23 04/07/23 04/07/23 Rx isosorbide mononitrate 30 mg 30 mg PO BID chest pain 90 days 03/12/23 04/07/23 04/07/23 Rx tablet,extended release 24 hr #180 tabs nitroglycerin 0.4 mg sublingual 0.4 mg sublingual Q5M PRN chest 03/31/23 04/07/23 04/06/23 Rx tablet (Nitrostat) pain #25 tabs atorvastatin 40 mg tablet 40 mg PO BID #60 tabs 04/01/23 04/07/23 04/07/23 Rx metoclopramide HCl 10 mg tablet 10 mg PO TID #90 tabs 04/01/23 04/07/23 04/07/23 Rx metolazone 2.5 mg tablet 2.5 mg PO DAILY PRN Edema 04/01/23 04/07/23 Unknown History pantoprazole 40 mg tablet,delayed 40 mg PO BID acid reflux #60 tabs 04/01/23 04/07/23 04/07/23 Rx release Allergies Allergy/AdvReac Type Severity Reaction Status Date / Time Influenza Virus Vaccines Allergy Severe ADR-Hyperte Verified 04/07/23 12:52 nsion Penicillins Allergy ALGY-Anaphy Verified 04/07/23 12:52 laxis PFSH Acute PFSH: Medical History Abdominal ascites Acute non-ST segment elevation myocardial infarction (NSTEMI) following previous myocardial infarction Allergic rhinitis due to allergen Anemia, chronic renal failure CAD (coronary artery disease) remote CABG, NSTEMI, Stents 07/2021 CHF (congestive heart failure) Chronic GERD Chronic nausea CKD stage 4 due to type 2 diabetes mellitus COPD (chronic obstructive pulmonary disease) Current non-smoker Quit 06/28/2021 after 57 years at 1.5 packs/day Diabetes mellitus, type II Duodenal ulcer Essential hypertension Gout Hypercholesterolemia Hyperlipemia, mixed Inflammatory monoarthritis of right wrist Ischemic cardiomyopathy ORA on CPAP Postprandial abdominal bloating Sinus node dysfunction Swelling of joint, wrist, right Surgical History History of appendectomy History of coronary artery stent placement Hx of CABG Family History Father Cancer Mother Diabetes Heart attack Social History Smoking and tobacco status: former smoker Quit status (tobacco): has quit using tobacco Year quit tobacco: June 2021 Former quit date comment: 1.5ppd x 57years Alcohol intake: current Alcohol intake frequency: holidays/special occasions only Alcohol type: beer Substance/Drug Use: never Desire information about substance/drug rehabilitation?: No Caregiver/support person: No Lives independently: Yes Household members: spouse Marital status: Number of children: 2 service: No Current occupational status: retired and disabled Do you think of yourself as: Straight/Heterosexual Current gender identity: Male Vitals/I&O/Wt Last Vital Signs Temp 97.8 F 04/07/23 12:49 Pulse 67 04/07/23 14:33 Resp 17 04/07/23 14:33 BP 121/50 04/07/23 14:33 Pulse Ox 100 04/07/23 14:33 O2 Del Method Room Air 04/07/23 12:49 O2 Flow Rate 2.5 04/07/23 14:33 Weight last 48 hrs Weight 160 lb Physical Exam Narrative: GENERAL: Patient is alert, awake and oriented x3. [] NECK: No jugular vein distension. [] HEENT: No cyanosis. No icterus. No pallor. [] HEART: Regular S1 and S2. No murmur, rub or gallop. [] LUNGS:Diminished air entry CENTRAL NERVOUS SYSTEM: Grossly nonfocal. [] EXTREMITIES: Lower extremities with 1+ edema bilaterally. Pulses palpable in the lower extremities, both dorsalis pedis and posterior tibial. [] Data 04/08/23 04:40 04/08/23 04:40 A&P Assessment and plan (1) Elevated troponin: (2) Weakness generalized: (3) Acute dyspnea: (4) Anemia, chronic renal failure: Qualifiers: Chronic kidney disease stage: unspecified stage Qualified Code(s): N18.9 - Chronic kidney disease, unspecified; D63.1 - Anemia in chronic kidney disease (5) CAD (coronary artery disease): Qualifiers: Coronary Disease-Associated Artery/Lesion type: bypass graft [place] vs. transplanted heart: [place] heart Associated angina: with unstable angina Qualified Code(s): I25.700 - Atherosclerosis of coronary artery bypass graft(s), unspecified, with unstable angina pectoris (6) CHF (congestive heart failure): (7) Essential hypertension: Plan Patient has presented with dyspnea. His chronic renal disease is worsening. He has significant uremia. Will recommend consulting nephrology regarding need for dialysis. His hemoglobin is also significantly low at 6.2. Will need blood transfusions. Goal hemoglobin will be over 8. We will hold off on ischemic work-up at this time. More acute issues are of anemia and renal disease. Hold anticoagulation for now. Troponin elevation likely demand ischemia with anemia and renal disease Repeat echocardiogram EKG shows sinus rhythm with interventricular conduction delay and ST depressions. Thank you for involving us with care of this patient. We will continue to follow. Please call with questions. Consult Attestations Medical Necessity Statement: Care expected to cross 2 midnights. Coding Level of Care Code Acute Code for Chg Fwd Diagnoses Elevated troponin R77.8 Weakness generalized R53.1 Acute dyspnea R06.00 Anemia, chronic renal failure N18.9; D63.1 Chronic kidney disease stage: unspecified stage CAD (coronary artery disease) I25.700 Coronary Disease-Associated Artery/Lesion type: bypass graft [place] vs. transplanted heart: [place] heart Associated angina: with unstable angina CHF (congestive heart failure) I50.9 Essential hypertension I10
[2023-04-07 17:53] LABS: Procalcitonin 0.11 ng/mL (0-0.5)
[2023-04-07] MEDS: budesonide 0.5 mg/2 mL Neb INHALATION (19:41)
[2023-04-07 19:56] LABS: Troponin 5 6HR Delta -2.4 ng/L (0-12)
[2023-04-07 19:57] LABS: Troponin 5 6HR 250.6 ng/L (0-15)
[2023-04-07] MEDS: metoclopramide 10 mg Tablet PO (21:10)
[2023-04-07] MEDS: heparin 5,000 unit/mL INJ 1 mL 5000 UNIT SUBCUT (21:10)
[2023-04-07 21:15] LABS: Glucose Point of Care 433 mg/dL (70-110)
[2023-04-07] MEDS: insulin lispro 100 unit/1 mL SUBCUT (21:36)
[2023-04-07] MEDS: FUROsemide 10 mg/mL SDV 10mL 100 MG IVP (21:48)
[2023-04-08] VITALS (12 sets, daily range): BP systolic 112–145; BP diastolic 50–69; PULSE 67–88; RESP 16–23; TEMP 36.6–37.1; O2SAT 93–100
[2023-04-08 04:53] LABS: Basophils % 0.2 %; Eosinophils # 0.3 10^3/uL (0.0-0.8); Eosinophils % 1.9 %; Hematocrit 25.7 % (37-53); Lymphocytes % 5.6 %; Mean Corpuscular HGB Conc 31.5 g/dL (30-55); Mean Corpuscular Hemoglobin 31.4 pg (27-33); Mean Corpuscular Volume 99.6 fl (82-101); Mean Platelet Volume 10.5 fL (7.4-10.4); Monocytes # 1.3 10^3/uL (0.2-0.9); Monocytes % 7.2 %; Neutrophils # 14.83 10^3/uL (1.8-7.7); Neutrophils % 83.9 %; Nucleated Red Blood Cells # 0.1 /100WBC; Nucleated Red Blood Cells % 0.7 %; Platelet Count 357 10^3/cmm (157-399); Red Blood Count 2.58 10^6/uL (3.85-5.65); Red Cell Distribution Width 17.6 % (12.1-15.1); White Blood Count 17.71 10^3/uL (3.29-11.43)
[2023-04-08] MEDS: aspirin 81 mg EC Tablet PO (05:27)
[2023-04-08 05:32] LABS: Alanine Aminotransferase 26 U/L (0-41); Albumin Level 3.3 g/dL (3.5-5.2); Alkaline Phosphatase 106 U/L (40-130); Anion Gap 17.8 (5-19); Aspartate Amino Transferase 20 U/L (0-40); Calcium 8.7 mg/dL (8.5-10.5); Carbon Dioxide 25 mmol/L (22-29); Chloride 100 mmol/L (98-107); Glomerular Filtration Rate 14.5 mL/min (90-130); Glucose 159 mg/dL (65-115); Magnesium 2.2 mg/dL (1.7-2.3); Phosphorus 3.7 mg/dL (2.5-4.5); Potassium 3.8 mmol/L (3.5-5.1); Sodium 139 mmol/L (136-145); Total Bilirubin 0.4 mg/dL (0.15-1.2); Total Protein 6.3 g/dL (6.6-8.7)
[2023-04-08 05:36] LABS: Glucose Point of Care 165 mg/dL (70-110)
[2023-04-08 05:43] LABS: Osmolality Calculated 333 mOsm/kg (285-295)
[2023-04-08 05:44] LABS: Blood Urea Nitrogen 129 mg/dL (8-23)
--- NOTE | 2023-04-08 08:28 | PM.PN ---
Subjective Subjective: Patient is feeling better. No chest pain. Has shortness of breath. Plan for dialysis. Vitals/I&O/Wt Last Vital Signs Temp 98.8 F 04/08/23 05:42 Pulse 88 04/08/23 07:56 Resp 18 04/08/23 07:56 BP 137/69 04/08/23 07:56 Pulse Ox 93 04/08/23 07:56 O2 Del Method Room Air 04/08/23 07:56 O2 Flow Rate 2 04/07/23 23:39 04/07/23 04/08/23 04/08/23 22:59 06:59 14:59 Intake Total 120 / 120 900 / 1020 480 / 480 Output Total 2550 / 2550 Balance 120 / 120 -1650 / -1530 480 / 480 Weight last 48 hrs Weight 160 lb 1.6 oz Weight 160 lb Physical Exam Narrative: GENERAL: Patient is alert, awake and oriented x3. [] NECK: No jugular vein distension. [] HEENT: No cyanosis. No icterus. No pallor. [] HEART: Regular S1 and S2. No murmur, rub or gallop. [] LUNGS:Diminished air entry CENTRAL NERVOUS SYSTEM: Grossly nonfocal. [] EXTREMITIES: Lower extremities with 1+ edema bilaterally. Pulses palpable in the lower extremities, both dorsalis pedis and posterior tibial. [] Urinary Catheter Management: Feng: Cath Placed During This Visit: yes Reason for Continuing Indwelling Catheter: Accurate Measurement of Urinary Output in Critically Ill Patients Urinary Catheter Date of Insertion: 04/07/23 Urinary Catheter Time of Insertion: 09:50 Data 04/09/23 05:06 04/09/23 05:06 A&P Assessment and plan (1) Elevated troponin: (2) Weakness generalized: (3) Acute dyspnea: (4) Anemia, chronic renal failure: Qualifiers: Chronic kidney disease stage: unspecified stage Qualified Code(s): N18.9 - Chronic kidney disease, unspecified; D63.1 - Anemia in chronic kidney disease (5) CAD (coronary artery disease): Qualifiers: Coronary Disease-Associated Artery/Lesion type: bypass graft [place] vs. transplanted heart: [place] heart Associated angina: with unstable angina Qualified Code(s): I25.700 - Atherosclerosis of coronary artery bypass graft(s), unspecified, with unstable angina pectoris (6) CHF (congestive heart failure): (7) Essential hypertension: Plan Plan for dialysis per nephrology recommendations. This will benefit him as his volume status will improve. Blood transfusions as needed. We will hold off ischemic work up at this time. EKG shows sinus rhythm with interventricular conduction delay and ST depressions. Thank you for involving us with care of this patient. We will continue to follow. Please call with questions. Attestations Medical Necessity Statement*: Care expected to cross 2 midnights. Coding Level of Care Code Acute Code for Chg Fwd Diagnoses Elevated troponin R77.8 Weakness generalized R53.1 Acute dyspnea R06.00 Anemia, chronic renal failure N18.9; D63.1 Chronic kidney disease stage: unspecified stage CAD (coronary artery disease) I25.700 Coronary Disease-Associated Artery/Lesion type: bypass graft [place] vs. transplanted heart: [place] heart Associated angina: with unstable angina CHF (congestive heart failure) I50.9 Essential hypertension I10
[2023-04-08] MEDS: ipratropium-albuterol 3 mL Neb INHALATION (08:44)
[2023-04-08] MEDS: budesonide 0.5 mg/2 mL Neb INHALATION (08:44)
[2023-04-08] MEDS: metoclopramide 10 mg Tablet PO ×3 (09:03→20:13)
[2023-04-08] MEDS: prazosin 1 mg Capsule PO ×2 (09:03→17:47)
[2023-04-08] MEDS: heparin 5,000 unit/mL INJ 1 mL 5000 UNIT SUBCUT ×2 (09:03→20:13)
[2023-04-08] MEDS: isosorbide mononitrate ER 30 mg Tablet PO ×2 (09:03→17:47)
[2023-04-08] MEDS: pantoprazole DR 40 mg Tablet PO ×2 (09:03→17:47)
[2023-04-08] MEDS: atorvastatin 40 mg Tablet PO ×2 (09:03→17:47)
[2023-04-08] MEDS: loratadine 10 mg Tablet PO (09:03)
[2023-04-08] MEDS: allopurinol 100 mg Tablet PO (09:03)
[2023-04-08] MEDS: metoprolol tartrate 50 mg Tablet PO ×2 (09:03→17:47)
[2023-04-08] MEDS: hyDRALAzine 50 mg Tablet PO ×2 (09:03→17:47)
[2023-04-08] MEDS: FUROsemide 10 mg/mL SDV 10mL 100 MG IVP ×2 (09:04→20:13)
[2023-04-08] MEDS: insulin lispro 100 unit/1 mL SUBCUT ×4 (09:04→20:27)
--- NOTE | 2023-04-08 10:33 | PC.CHAP ---
Pastoral Care Encounter/Spiritual Assessment Type of Contact [] Declined co teacher visit [] Patient/Family/Request visit [] Outpatient visit [] Follow-up visit [] Physician referral [] Code/Alert [x] Routine visit [] Staff referral [] Actively dying [] Patient sleeping [] Family support [] [] Out of room [] Palliative care [] [x] Receiving care in room [] Pre-surgical visit [] Trauma [] Long length of stay [] ICU visit [] Other: Relational/Emotional Strength [x] Patient feels connected with others/family/visitors/staff [] Distress [] Loneliness/isolation [] Abandonment Spirituality of Patient [x] Person of Ileana [] Attends Alevism of their Ileana [x] Believes in Prayer [] Reads Bible or Jehovah'S Witness materials [] There are Spiritual issues to be addressed Clothes Presser Interventions [x] Prayer [x] Active listening [x] Non-anxious presence [x] Spiritual/emotional support [] Crisis/trauma care [x] Spiritual counseling [] Bereavement support [] Provided bereavement packet [] Provided Bible/devotional materials [] Provided toy/stuffed animal, coloring book to patient or family member [] Provided Communion [] Anointing/[place] [] Salvation [x] Completed spiritual assessment [] Other: Impact on Illness or Injury [] Angry [] Fearful [] Anxious [] Often cries [] Exhaustion [] Unable to work [] Unable to attend pentecostalism [] Unable to walk/stand [] Unable to read [] Unable to drive [] Unable to eat/drink [] Unable to sleep [] Unable to be with family [] Patient intubated [] Other: Summary senior, Sob shortness of breath chec hector with doctor for results negative +1 well go home Time spent with patient 10 mins
--- NOTE | 2023-04-08 13:09 | P.CONIM_ITS ---
Providers/Reason For Consult Consulting Physician/Specialty*: Dr. Juan Rene, DO/General surgery Reason for Consult*: Tunneled dialysis catheter placement Attending Physician: Dusty Charles MD Primary Care Provider: Donavan Clemons MD History of Present Illness History of Present Illness Luis Alfredo Thompson is a 68 year old male with past medical history as below who has chronic kidney disease stage IV. Nephrology is requesting permacath placement for hemodialysis. The patient wants to convert to peritoneal dialysis at home and would like a peritoneal dialysis catheter placed as well. He denies any abdominal pain, nausea, emesis, diarrhea, constipation, hematochezia and/or melena. Review of Systems General: Reports: 10 or more systems reviewed and unremarkable except in HPI and below Medications/Allergies Home Medications Medication Instructions Recorded Confirmed Last Taken Type ascorbic acid (vitamin C) 500 mg 500 mg PO [facility] [employer] #100 tabs 08/22/21 04/07/23 04/07/23 Rx tablet (Vitamin C) aspirin 81 mg tablet,delayed 81 mg PO QA 90 days #90 tabs 08/22/21 04/07/23 04/07/23 Rx release vitamin E 268 mg (400 unit) capsule 400 unit PO [facility] [employer] #90 caps 08/22/21 04/07/23 04/07/23 Rx loratadine 10 mg tablet 10 mg PO DAILY 08/25/22 04/07/23 04/07/23 History One touch test strips #3 ea 09/01/22 04/07/23 Unknown Rx blood-glucose meter,continuous #1 ea 09/14/22 04/07/23 Unknown Rx (Dexcom G6 [employer]) blood-glucose sensor (Dexcom G6 #9 ea 09/14/22 04/07/23 Unknown Rx Sensor device) blood-glucose transmitter (Dexcom #1 ea 09/14/22 04/07/23 Unknown Rx G6 Transmitter device) vitamin B complex 1 tab PO DAILY 09/29/22 04/07/23 04/07/23 History flash glucose scanning reader #1 ea 10/05/22 04/07/23 Unknown Rx (FreeStyle Elli 2 Perry) flash glucose sensor (FreeStyle #6 ea 10/05/22 04/07/23 Unknown Rx Elli 2 Sensor kit) budesonide-formoterol HFA 80 2 inh inhalation BID lungs & 10/14/22 04/07/23 03/24/23 Rx mcg-4.5 mcg/actuation aerosol breathing 30 days #10.2 grams inhaler (Symbicort) potassium chloride 20 mEq See Rx Instructions .Route .COMPLEX 11/18/22 04/07/23 04/07/23 History tablet,extended release(part/cryst) (Klor-Con M) docusate sodium 50 mg capsule 100 mg PO BID 12/08/22 04/07/23 04/07/23 History (Stool Softener) metoprolol tartrate 50 mg tablet 50 mg PO BID blood pressure 12/08/22 04/07/23 04/07/23 History prazosin 1 mg capsule 1 mg PO BID 12/08/22 04/07/23 04/07/23 History simethicone 250 mg capsule 250 mg PO TID PRN Gastrointestinal 12/08/22 04/07/23 01/24/23 History Spasms Or Cramping vit A 7,160 unit-vit C 113 mg-vit 1 tab PO DAILY 12/08/22 04/07/23 04/07/23 H istory E 100 [id number]-[id number] tablet (EyeProtect) hydralazine 50 mg tablet 50 mg PO BID blood Pressure #180 12/14/22 04/07/23 04/07/23 Rx tabs allopurinol 100 mg tablet 100 mg PO DAILY gout 30 days #30 12/17/22 04/07/23 04/07/23 Rx tabs insulin aspart U-100 100 unit/mL See Rx Instructions .Route .COMPLEX 01/22/23 04/07/23 04/07/23 History (3 mL) subcutaneous pen (Novolog FlexPen U-100 Insulin aspart) insulin glargine 100 unit/mL (3 13 unit SUBCUT DAILY 01/22/23 04/07/23 04/07/23 History mL) subcutaneous pen (Lantus Solostar U-100 Insulin) triamcinolone acetonide 0.025 % 1 applic topical DAILY PRN Rash 01/22/23 04/07/23 Unknown History topical cream cholecalciferol (vitamin D3) 50 100 mcg PO DAILY 01/25/23 04/07/23 04/07/23 H istory mcg (2,000 unit) capsule (Vitamin D3) tramadol 50 mg tablet 50 mg PO Q8H PRN pain 15 days #45 02/10/23 04/07/23 Unknown Rx tabs ferrous sulfate 325 mg (65 mg 325 mg PO DAILY 02/11/23 04/07/23 04/07/23 History iron) tablet (FeroSul) bumetanide 1 mg tablet 1 mg PO Q12H Heart failure #60 tabs 03/12/23 04/07/23 04/07/23 Rx isosorbide mononitrate 30 mg 30 mg PO BID chest pain 90 days 03/12/23 04/07/23 04/07/23 Rx tablet,extended release 24 hr #180 tabs nitroglycerin 0.4 mg sublingual 0.4 mg sublingual Q5M PRN chest 03/31/23 04/07/23 04/06/23 Rx tablet (Nitrostat) pain #25 tabs atorvastatin 40 mg tablet 40 mg PO BID #60 tabs 04/01/23 04/07/23 04/07/23 Rx metoclopramide HCl 10 mg tablet 10 mg PO TID #90 tabs 04/01/23 04/07/23 04/07/23 Rx metolazone 2.5 mg tablet 2.5 mg PO DAILY PRN Edema 04/01/23 04/07/23 Unknown History pantoprazole 40 mg tablet,delayed 40 mg PO BID acid reflux #60 tabs 04/01/23 04/07/23 04/07/23 Rx release Allergies Allergy/AdvReac Type Severity Reaction Status Date / Time Influenza Virus Vaccines Allergy Severe ADR-Hyperte Verified 04/07/23 12:52 nsion Penicillins Allergy ALGY-Anaphy Verified 04/07/23 12:52 laxis Current Medications Generic Name Dose Route Start Last Admin Trade Name Freq PRN Reason Stop Dose Admin Albuterol/Ipratropium 3 ml 04/07/23 18:51 04/08/23 08:44 Ipratropium-Albuterol 3 Ml Neb INHALATION 3 ml Q4H PRN Administration SHORTNESS OF BREATH Allopurinol 100 mg 04/08/23 09:00 04/08/23 09:03 Allopurinol 100 Mg Tablet PO 100 mg DAILY SUNSHINE Administration Aspirin 81 mg 04/08/23 06:00 04/08/23 05:27 Aspirin 81 Mg Ec Tablet PO 81 mg QAM SUNSHINE Administration Atorvastatin Calcium 40 mg 04/08/23 09:00 04/08/23 09:03 Atorvastatin 40 Mg Tablet PO 40 mg BID SUNSHINE Administration Budesonide 0.5 mg 04/07/23 20:00 04/08/23 08:44 Budesonide 0.5 Mg/2 Ml Neb INHALATION 0.5 mg BID.RESPIRATORY SUNSHINE Administration Furosemide 100 mg 04/07/23 20:00 04/08/23 09:04 Furosemide 10 Mg/Ml Sdv 10ml IVP 100 mg Q12H SUNSHINE Administration Heparin Sodium (Porcine) 5,000 unit 04/07/23 20:00 04/08/23 09:03 Heparin 5,000 Unit/Ml Inj 1 Ml SUBCUT 5,000 unit Q12H SUNSHINE Administration Hydralazine HCl 50 mg 04/08/23 09:00 04/08/23 09:03 Hydralazine 50 Mg Tablet PO 50 mg BID SUNSHINE Administration Insulin Human Lispro 0 unit 04/07/23 21:00 04/08/23 09:04 Insulin Lispro 100 Unit/1 Ml SUBCUT 2 unit WM&BEDTIME SUNSHINE Administration Protocol Isosorbide Mononitrate 30 mg 04/08/23 09:00 04/08/23 09:03 Isosorbide Mononitrate Er 30 Mg Tablet PO 30 mg BID SUNSHINE Administration Loratadine 10 mg 04/08/23 09:00 04/08/23 09:03 Loratadine 10 Mg Tablet PO 10 mg DAILY SUNSHINE Administration Metoclopramide HCl 10 mg 04/07/23 21:00 04/08/23 09:03 Metoclopramide 10 Mg Tablet PO 10 mg TID SUNSHINE Administration Metoprolol Tartrate 50 mg 04/08/23 09:00 04/08/23 09:03 Metoprolol Tartrate 50 Mg Tablet PO 50 mg BID SUNSHINE Administration Pantoprazole Sodium 40 mg 04/08/23 09:00 04/08/23 09:[address] 40 Mg Tablet PO 40 mg BID SUNSHINE Administration Prazosin HCl 1 mg 04/08/23 09:00 04/08/23 09:03 Prazosin 1 Mg Capsule PO 1 mg BID SUNSHINE Administration PFSH Acute PFSH: Medical History Abdominal ascites Acute non-ST segment elevation myocardial infarction (NSTEMI) following previous myocardial infarction Allergic rhinitis due to allergen Anemia, chronic renal failure CAD (coronary artery disease) remote CABG, NSTEMI, Stents 07/2021 CHF (congestive heart failure) Chronic GERD Chronic nausea CKD stage 4 due to type 2 diabetes mellitus COPD (chronic obstructive pulmonary disease) Current non-smoker Quit 06/28/2021 after 57 years at 1.5 packs/day Diabetes mellitus, type II Duodenal ulcer Essential hypertension Gout Hypercholesterolemia Hyperlipemia, mixed Inflammatory monoarthritis of right wrist Ischemic cardiomyopathy ORA on CPAP Postprandial abdominal bloating Sinus node dysfunction Swelling of joint, wrist, right Surgical History History of appendectomy History of coronary artery stent placement Hx of CABG Family History Father Cancer Mother Diabetes Heart attack Social History Smoking and tobacco status: former smoker Quit status (tobacco): has quit using tobacco Year quit tobacco: June 2021 Former quit date comment: 1.5ppd x 57years Alcohol intake: current Alcohol intake frequency: holidays/special occasions only Alcohol type: beer Substance/Drug Use: never Desire information about substance/drug rehabilitation?: No Caregiver/support person: No Lives independently: Yes Household members: spouse Marital status: Number of children: 2 service: No Current occupational status: retired and disabled Do you think of yourself as: Straight/Heterosexual Current gender identity: Male Vitals/I&O/Wt Last Vital Signs Temp 98.0 F 04/08/23 13:04 Pulse 70 04/08/23 13:04 Resp 20 H 04/08/23 13:04 BP 117/52 04/08/23 13:04 Pulse Ox 97 04/08/23 13:04 O2 Del Method Nasal Cannula 04/08/23 13:04 O2 Flow Rate 2 04/07/23 23:39 04/07/23 04/08/23 04/08/23 22:59 06:59 14:59 Intake Total 120 / 120 900 / 1020 1320 / 1320 Output Total 2550 / 2550 2650 / 2650 Balance 120 / 120 -1650 / -1530 -1330 / -1330 Weight last 48 hrs Weight 160 lb 1.6 oz Weight 160 lb Physical Exam Narrative: General : Patient is well developed , no acute distress, oriented x3 Head : Normal cephalic, a-traumatic. Ears : Pinnae and external canal are normal. Hearing is normal. Eyes : PERRLA, Sclera and injection are normal. No conjunctival discharge. Nose : Mucous membranes are without erythema. Throat : buccal mucosa is normal, gums are without significant recession or hypertrophy. Lungs : Equal chest rise bilaterally, no use of accessory muscles, trachea is midline. Cor : Rate and rhythm are normal. Abdomen : Soft, ND, NT, no g/r/m Extremities : No edema, no cyanosis or clubbing, dorsalis pedis pulses are present bilaterally, non-tender to palpation of calves. Upper extremities are normal bilaterally. Back : non-tender to palpation, no CVA tenderness. Neuro : CN II - XII intact, Upper and lower extremities have equal and full strength Urinary Catheter Management: Feng: Cath Placed During This Visit: yes Reason for Continuing Indwelling Catheter: Accurate Measurement of Urinary Output in Critically Ill Patients Urinary Catheter Date of Insertion: 04/07/23 Urinary Catheter Time of Insertion: 09:50 Data 04/09/23 05:06 04/09/23 05:06 A&P Assessment and plan (1) CKD stage 4 due to type 2 diabetes mellitus: Plan Permacath placement Peritoneal dialysis catheter placement The risks and benefits of the procedure, including but not limited to, bleeding, infection, infection requiring Mediport removal antibiotic therapy and repeat surgery, damage to surrounding structures, scar, numbness, pain, pneumothorax r equiring thoracostomy tube, were explained to the patient. He/She is understanding of the risks and wishes to proceed. Coding Level of Care Code 33811 Diagnoses CKD stage 4 due to type 2 diabetes mellitus E11.22; N18.4
[2023-04-08] MEDS: insulin glargine 100 units/1 mL 10 UNIT SUBCUT (13:23)
--- NOTE | 2023-04-08 14:33 | PM.PN ---
Subjective Subjective: Patient transfused overnight. No chest pain at rest this morning. Spouse bedside and supportive. Requested Luis Alfredo's filler shaker be contacted which she facilitated. Dr Aguilera called me later in the morning. We discussed Luis Alfredo's presentation, reviewed his blood work, anemia, and transfusion. She reports she won't see him personally in clinic until May and that is too long to wait to get things set up given current numbers. She suggested we proceed with setting up hemodialysis via tunnel line and she would see him sooner in April at dialysis with the same plan to set up home PD dialysis. Also inquired about desired infusion that Luis Alfredo's noted and she stated she had faxed Dr Gusman's office a request for IV iron. Revisited patient and spouse. After they discussed, they are agreeable to proceeding with telenephro and general surgery consult. Medications: Reviewed: Yes Vitals/I&O/Wt Last Vital Signs Temp 98.0 F 04/08/23 13:04 Pulse 70 04/08/23 13:04 Resp 20 H 04/08/23 13:04 BP 117/52 04/08/23 13:04 Pulse Ox 97 04/08/23 13:04 O2 Del Method Nasal Cannula 04/08/23 13:04 O2 Flow Rate 2 04/07/23 23:39 04/07/23 04/08/23 04/08/23 22:59 06:59 14:59 Intake Total 120 / 120 900 / 1020 1320 / 1320 Output Total 2550 / 2550 2650 / 2650 Balance 120 / 120 -1650 / -1530 -1330 / -1330 Weight last 48 hrs Weight 72.62 kg Weight 72.575 kg Physical Exam Narrative: General: Patient is awake. Laying in bed. Facial color is better today. Head: Normocephalic. Atraumatic. EOM intact. Neck: No JVD. Cardiovascular: Normal S1 and S1. No gallops. No murmurs. Edema in BLE. Sternotomy scar. Lungs: Breath sounds diminished in bilateral bases. No crackles or wheezes. Skin: No jaundice. No rashes. Spider angiomas. Abdomen: Normal bowel sounds, abdomen soft and nontender. Extremities: No cyanosis or clubbing. Musculoskeletal: No swollen or erythematous joints. Neurological: Moves all 4 extremities. No myoclonus. Urinary Catheter Management: Feng: Cath Placed During This Visit: yes Reason for Continuing Indwelling Catheter: Accurate Measurement of Urinary Output in Critically Ill Patients Urinary Catheter Date of Insertion: 04/07/23 Urinary Catheter Time of Insertion: 09:50 Data 04/08/23 04:40 04/08/23 04:40 A&P Assessment and plan (1) CKD stage 4 due to type 2 diabetes mellitus: MARCELO on CKD-IV Discussed w/ Dr Aguilera as above Telenephro consult General surgery consult Continue IV Lasix Feng for strict I&Os (2) Anemia, chronic renal failure: Anemia of CKD Status post 1 pRBC HGB goal of 8 Trend labs Start IV iron Qualifiers: Chronic kidney disease stage: unspecified stage Qualified Code(s): N18.9 - Chronic kidney disease, unspecified; D63.1 - Anemia in chronic kidney disease (3) Elevated troponin: Cardiology following, appreciate recommendations Continue aspirin Continue statin Continue Imdur Continue BB (4) Weakness generalized: Debility and physical deconditioning Likely multifactorial given comorbidities Non-compliant with CPAP Treat underlying anemia, kidney disease, heart failure, etc (5) Acute dyspnea: With chronic hypoxic respiratory failure Multifactorial, treat underlying pathologies as noted above (6) CHF (congestive heart failure): Acute on chronic decompensated combined HFrEF exacerbation Strict I&Os Daily weights Hold oral Bumex Lasix 100 mg IV BID Continue BB Appreciate cardiology input (7) Diabetes mellitus, type II: Continue Lantus at reduced home dose SSI, low scale Avoid hypoglycemia Qualifiers: Diabetes mellitus rodent exterminator insulin use: without rodent exterminator use Diabetes mellitus complication status: with hyperglycemia Qualified Code(s): E11.65 - Type 2 diabetes mellitus with hyperglycemia (8) CAD (coronary artery disease): Management as above Qualifiers: Coronary Disease-Associated Artery/Lesion type: bypass graft Robinson vs. transplanted heart: wrangell heart Associated angina: with unstable angina Qualified Code(s): I25.700 - Atherosclerosis of coronary artery bypass graft(s), unspecified, with unstable angina pectoris (9) Essential hypertension: Continue metoprolol Continue hydralazine (10) COPD (chronic obstructive pulmonary disease): Pulmicort DuoNebs PRN Qualifiers: Emphysema type: panlobular Plan DVT ppx: Heparin Code Status: Full Attestations Medical Necessity Statement*: Patient requires ongoing hospitalization for general surgery evaluation for PD cath and tunnelled dialysis line placement, initiation of dialysis, serial labs, telemetry, cardiology evaluation, IV iron infusion, and supportive care. Coding Level of Care Code Acute Code for Chg Fwd Diagnoses CKD stage 4 due to type 2 diabetes mellitus E11.22; N18.4 Anemia, chronic renal failure N18.9; D63.1 Chronic kidney disease stage: unspecified stage Elevated troponin R77.8 Weakness generalized R53.1 Acute dyspnea R06.00 CHF (congestive heart failure) I50.9 Diabetes mellitus, type II E11.65 Diabetes mellitus custodial insulin use: without custodial use Diabetes mellitus complication status: with hyperglycemia CAD (coronary artery disease) I25.700 Coronary Disease-Associated Artery/Lesion type: bypass graft Robinson vs. transplanted heart: wrangell heart Associated angina: with unstable angina Essential hypertension I10 COPD (chronic obstructive pulmonary disease) J44.9 Emphysema type: panlobular
[2023-04-08] MEDS: iron sucrose 200 MG in sodium chloride 0.9% (100 ml) 100 ML 220 MG IV (16:20)
[2023-04-08 17:25] LABS: Glucose Point of Care 234 mg/dL (70-110)
--- NOTE | 2023-04-08 19:36 | PC.NURSE ---
Patient requesting something to help with sleep tonight. Spoke with Dr Desouza and received telephone order for benadryl 50mg PO at bedtime. RBVO
[2023-04-08] MEDS: diphenhydrAMINE 50 mg Capsule PO (20:13)
--- NOTE | 2023-04-08 20:33 | PC.NURSE ---
Patient requested to use Dexcom for his blood sugar check tonight. BS 180 per Dexcom
[2023-04-08 20:58] LABS: Glucose Point of Care 231 mg/dL (70-110)
--- NOTE | 2023-04-08 21:44 | PM.CONSULT ---
Providers/Reason For Consult Consulting Physician/Specialty*: [facility]/Nephrology Reason for Consult*: Acute on ckd 4 Attending Physician: Dusty Charles MD Primary Care Provider: Donavan Clemons MD History of Present Illness History of Present Illness Luis Alfredo Thompson is a 68 year old male With past medical history of coronary artery disease with CABG, COPD, diabetes, ischemic cardiomyopathy, CKD stage IV with a creatinine in the 3-[address] Aguilera as outpatient, presents to the emergency department due to shortness of breath with exertion. Also complained of progressively declining functional status, poor appetite and reduced p.o. intake. Patient was having poor response to diuretics and was in discussions about dialysis prior to hospital admission. Patient has uremia with a BUN of 129 today. Also noted to have anemia requiring 1 unit of blood transfusion. After further discussion with patient patient had agreed to dialysis and plan for tunnel catheter tomorrow. His transplant nurse, Dr. Aguilera is planning to transition him to PD as outpatient once discharged. Review of Systems Narrative: negative Medications/Allergies Home Medications Medication Instructions Recorded Confirmed Last Taken Type ascorbic acid (vitamin C) 500 mg 500 mg PO [employer] #100 tabs 08/22/21 04/07/23 04/07/23 Rx tablet (Vitamin C) aspirin 81 mg tablet,delayed 81 mg PO QA 90 days #90 tabs 08/22/21 04/07/23 04/07/23 Rx release vitamin E 268 mg (400 unit) capsule 400 unit PO [employer] #90 caps 08/22/21 04/07/23 04/07/23 Rx loratadine 10 mg tablet 10 mg PO DAILY 08/25/22 04/07/23 04/07/23 History One touch test strips #3 ea 09/01/22 04/07/23 Unknown Rx blood-glucose meter,continuous #1 ea 09/14/22 04/07/23 Unknown Rx (Dexcom G6 Alternative Energy Technician) blood-glucose sensor (Dexcom G6 #9 ea 09/14/22 04/07/23 Unknown Rx Sensor device) blood-glucose transmitter (Dexcom #1 ea 09/14/22 04/07/23 Unknown Rx G6 Transmitter device) vitamin B complex 1 tab PO DAILY 09/29/22 04/07/23 04/07/23 History flash glucose scanning reader #1 ea 10/05/22 04/07/23 Unknown Rx (FreeStyle Elli 2 [place]) flash glucose sensor (FreeStyle #6 ea 10/05/22 04/07/23 Unknown Rx Elli 2 Sensor kit) budesonide-formoterol HFA 80 2 inh inhalation BID lungs & 10/14/22 04/07/23 03/24/23 Rx mcg-4.5 mcg/actuation aerosol breathing 30 days #10.2 grams inhaler (Symbicort) potassium chloride 20 mEq See Rx Instructions .Route .COMPLEX 11/18/22 04/07/23 04/07/23 History tablet,extended release(part/cryst) (Klor-Con M) docusate sodium 50 mg capsule 100 mg PO BID 12/08/22 04/07/23 04/07/23 History (Stool Softener) metoprolol tartrate 50 mg tablet 50 mg PO BID blood pressure 12/08/22 04/07/23 04/07/23 History prazosin 1 mg capsule 1 mg PO BID 12/08/22 04/07/23 04/07/23 History simethicone 250 mg capsule 250 mg PO TID PRN Gastrointestinal 12/08/22 04/07/23 01/24/23 History Spasms Or Cramping vit A 7,160 unit-vit C 113 mg-vit 1 tab PO DAILY 12/08/22 04/07/23 04/07/23 History E 100 flsr-jawb-aglcoi tablet (EyeProtect) hydralazine 50 mg tablet 50 mg PO BID blood Pressure #180 12/14/22 04/07/23 04/07/23 Rx tabs allopurinol 100 mg tablet 100 mg PO DAILY gout 30 days #30 12/17/22 04/07/23 04/07/23 Rx tabs insulin aspart U-100 100 unit/mL See Rx Instructions .Route .COMPLEX 01/22/23 04/07/23 04/07/23 History (3 mL) subcutaneous pen (Novolog FlexPen U-100 Insulin aspart) insulin glargine 100 unit/mL (3 13 unit SUBCUT DAILY 01/22/23 04/07/23 04/07/23 History mL) subcutaneous pen (Lantus Solostar U-100 Insulin) triamcinolone acetonide 0.025 % 1 applic topical DAILY PRN Rash 01/22/23 04/07/23 Unknown History topical cream cholecalciferol (vitamin D3) 50 100 mcg PO DAILY 01/25/23 04/07/23 04/07/23 History mcg (2,000 unit) capsule (Vitamin D3) tramadol 50 mg tablet 50 mg PO Q8H PRN pain 15 days #45 02/10/23 04/07/23 Unknown Rx tabs ferrous sulfate 325 mg (65 mg 325 mg PO DAILY 02/11/23 04/07/23 04/07/23 History iron) tablet (FeroSul) bumetanide 1 mg tablet 1 mg PO Q12H Heart failure #60 tabs 03/12/23 04/07/23 04/07/23 Rx isosorbide mononitrate 30 mg 30 mg PO BID chest pain 90 days 03/12/23 04/07/23 04/07/23 Rx tablet,extended release 24 hr #180 tabs nitroglycerin 0.4 mg sublingual 0.4 mg sublingual Q5M PRN chest 03/31/23 04/07/23 04/06/23 Rx tablet (Nitrostat) pain #25 tabs atorvastatin 40 mg tablet 40 mg PO BID #60 tabs 04/01/23 04/07/23 04/07/23 Rx metoclopramide HCl 10 mg tablet 10 mg PO TID #90 tabs 04/01/23 04/07/23 04/07/23 Rx metolazone 2.5 mg tablet 2.5 mg PO DAILY PRN Edema 04/01/23 04/07/23 Unknown History pantoprazole 40 mg tablet,delayed 40 mg PO BID acid reflux #60 tabs 04/01/23 04/07/23 04/07/23 Rx release Allergies Allergy/AdvReac Type Severity Reaction Status Date / Time Influenza Virus Vaccines Allergy Severe ADR-Hyperte Verified 04/07/23 12:52 nsion Penicillins Allergy ALGY-Anaphy Verified 04/07/23 12:52 laxis Current Medications Generic Name Dose Route Start Last Admin Trade Name Freq PRN Reason Stop Dose Admin Albuterol/Ipratropium 3 ml 04/07/23 18:51 04/08/23 08:44 Ipratropium-Albuterol 3 Ml Neb INHALATION 3 ml Q4H PRN Administration SHORTNESS OF BREATH Allopurinol 100 mg 04/08/23 09:00 04/08/23 09:03 Allopurinol 100 Mg Tablet PO 100 mg DAILY SUNSHINE Administration Aspirin 81 mg 04/08/23 06:00 04/08/23 05:27 Aspirin 81 Mg Ec Tablet PO 81 mg QAM SUNSHINE Administration Atorvastatin Calcium 40 mg 04/08/23 09:00 04/08/23 17:47 Atorvastatin 40 Mg Tablet PO 40 mg BID SUNSHINE Administration Budesonide 0.5 mg 04/07/23 20:00 04/08/23 20:46 Budesonide 0.5 Mg/2 Ml Neb INHALATION Not Given BID.RESPIRATORY SUNSHINE Diphenhydramine HCl 50 mg 04/08/23 19:29 04/08/23 20:13 Diphenhydramine 50 Mg Capsule PO 50 mg BEDTIME PRN Administration INSOMNIA Furosemide 100 mg 04/07/23 20:00 04/08/23 20:13 Furosemide 10 Mg/Ml Sdv 10ml IVP 100 mg Q12H SUNSHINE Administration Heparin Sodium (Porcine) 5,000 unit 04/07/23 20:00 04/08/23 20:13 Heparin 5,000 Unit/Ml Inj 1 Ml SUBCUT 5,000 unit Q12H SUNSHINE Administration Hydralazine HCl 50 mg 04/08/23 09:00 04/08/23 17:47 Hydralazine 50 Mg Tablet PO 50 mg BID SUNSHINE Administration Insulin Glargine 10 unit 04/08/23 09:00 04/08/23 13:23 Insulin Glargine 100 Units/1 Ml SUBCUT 10 unit DAILY SUNSHINE Administration Insulin Human Lispro 0 unit 04/07/23 21:00 04/08/23 20:27 Insulin Lispro 100 Unit/1 Ml SUBCUT 2 unit WM&BEDTIME SUNSHINE Administration Protocol Isosorbide Mononitrate 30 mg 04/08/23 09:00 04/08/23 17:47 Isosorbide Mononitrate Er 30 Mg Tablet PO 30 mg BID SUNSHINE Administration Loratadine 10 mg 04/08/23 09:00 04/08/23 09:03 Loratadine 10 Mg Tablet PO 10 mg DAILY SUNSHINE Administration Metoclopramide HCl 10 mg 04/07/23 21:00 04/08/23 20:13 Metoclopramide 10 Mg Tablet PO 10 mg TID SUNSHINE Administration Metoprolol Tartrate 50 mg 04/08/23 09:00 04/08/23 17:47 Metoprolol Tartrate 50 Mg Tablet PO 50 mg BID SUNSHINE Administration Pantoprazole Sodium 40 mg 04/08/23 09:00 04/08/23 17:[address] 40 Mg Tablet PO 40 mg BID SUNSHINE Administration Prazosin HCl 1 mg 04/08/23 09:00 04/08/23 17:47 Prazosin 1 Mg Capsule PO 1 mg BID SUNSHINE Administration PFSH Acute PFSH: Medical History Abdominal ascites Acute non-ST segment elevation myocardial infarction (NSTEMI) following previous myocardial infarction Allergic rhinitis due to allergen Anemia, chronic renal failure CAD (coronary artery disease) remote CABG, NSTEMI, Stents 07/2021 CHF (congestive heart failure) Chronic GERD Chronic nausea CKD stage 4 due to type 2 diabetes mellitus COPD (chronic obstructive pulmonary disease) Current non-smoker Quit 06/28/2021 after 57 years at 1.5 packs/day Diabetes mellitus, type II Duodenal ulcer Essential hypertension Gout Hypercholesterolemia Hyperlipemia, mixed Inflammatory monoarthritis of right wrist Ischemic cardiomyopathy ORA on CPAP Postprandial abdominal bloating Sinus node dysfunction Swelling of joint, wrist, right Surgical History History of appendectomy History of coronary artery stent placement Hx of CABG Family History Father Cancer Mother Diabetes Heart attack Social History Smoking and tobacco status: former smoker Quit status (tobacco): has quit using tobacco Year quit tobacco: June 2021 Former quit date comment: 1.5ppd x 57years Alcohol intake: current Alcohol intake frequency: holidays/special occasions only Alcohol type: beer Substance/Drug Use: never Desire information about substance/drug rehabilitation?: No Caregiver/support person: No Lives independently: Yes Household members: spouse Marital status: Number of children: 2 service: No Current occupational status: retired and disabled Do you think of yourself as: Straight/Heterosexual Current gender identity: Male Vitals/I&O/Wt Last Vital Signs Temp 98.4 F 04/08/23 20:00 Pulse 80 04/08/23 20:46 Resp 18 04/08/23 20:46 BP 112/50 04/08/23 20:00 Pulse Ox 96 04/08/23 20:46 O2 Del Method Nasal Cannula 04/08/23 20:46 O2 Flow Rate 1 04/08/23 20:46 04/08/23 04/08/23 04/08/23 06:59 14:59 22:59 Intake Total 900 / 1020 1320 / 1320 970 / 2290 Output Total 2550 / 2550 2650 / 2650 Balance -1650 / -1530 -1330 / -1330 970 / -360 Weight last 48 hrs Weight 72.62 kg Weight 72.575 kg Physical Exam Narrative: awake , alert no distress S1 S2 RRR per report Lungs cracklesper report no edema Urinary Catheter Management: Feng: Cath Placed During This Visit: yes Reason for Continuing Indwelling Catheter: Accurate Measurement of Urinary Output in Critically Ill Patients Urinary Catheter Date of Insertion: 04/07/23 Urinary Catheter Time of Insertion: 09:50 Data 04/08/23 04:40 04/08/23 04:40 A&P Assessment and plan (1) CKD stage 4 due to type 2 diabetes mellitus: Plan 1. Acute on chronic kidney disease stage IV 5: Patient has volume overload and uremic symptoms. Agreed to dialysis and plan for tunnel catheter placement. 2 g sodium restriction and 1500 mm fluid restriction, start HD treatments once catheter placed 2. Hypertension: Blood pressure controlled 3. Anemia: Status post transfusion, will order ANDREI 4. Acute on chronic respiratory failure: Multifactorial 5. History of coronary artery disease and CABG. Patient evaluated using audiovisual cart. Time spent 40 minutes Consult Attestations Medical Necessity Statement: per medicine Coding Level of Care Code Acute Code for Chg Fwd Diagnoses CKD stage 4 due to type 2 diabetes mellitus E11.22; N18.4
[2023-04-08 23:44] LABS: Hepatitis B Surface AB 3.5 (11.5-1000); Hepatitis B Surface Antigen Non-Reactive (Nonreactive)
[2023-04-09] VITALS (23 sets, daily range): BP systolic 109–169; BP diastolic 49–70; PULSE 60–77; RESP 10–24; TEMP 36.1–37.1; O2SAT 91–100
[2023-04-09] MEDS: LORazepam 1 mg Tablet PO
[2023-04-09] MEDS: aspirin 81 mg EC Tablet PO (05:19)
[2023-04-09 05:32] LABS: Basophils % 0.2 %; Eosinophils # 0.5 10^3/uL (0.0-0.8); Eosinophils % 3.6 %; Hematocrit 24.5 % (37-53); Lymphocytes # 1.2 10^3/uL (0.8-4.8); Lymphocytes % 9.1 %; Mean Corpuscular HGB Conc 29.4 g/dL (30-55); Mean Corpuscular Hemoglobin 30.1 pg (27-33); Mean Corpuscular Volume 102.5 fl (82-101); Mean Platelet Volume 10.4 fL (7.4-10.4); Monocytes # 0.8 10^3/uL (0.2-0.9); Monocytes % 6.4 %; Neutrophils # 10.29 10^3/uL (1.8-7.7); Neutrophils % 79.8 %; Nucleated Red Blood Cells % 0.3 %; Platelet Count 307 10^3/cmm (157-399); Red Blood Count 2.39 10^6/uL (3.85-5.65); Red Cell Distribution Width 17.7 % (12.1-15.1); White Blood Count 12.87 10^3/uL (3.29-11.43)
[2023-04-09 05:51] LABS: Albumin Level 3.2 g/dL (3.5-5.2); Anion Gap 17.6 (5-19); Calcium 8.8 mg/dL (8.5-10.5); Carbon Dioxide 27 mmol/L (22-29); Chloride 102 mmol/L (98-107); Glomerular Filtration Rate 16.4 mL/min (90-130); Glucose 120 mg/dL (65-115); Magnesium 2.1 mg/dL (1.7-2.3); Phosphorus 4.2 mg/dL (2.5-4.5); Potassium 3.6 mmol/L (3.5-5.1); Sodium 143 mmol/L (136-145)
[2023-04-09 06:09] LABS: Blood Urea Nitrogen 125 mg/dL (8-23)
[2023-04-09 06:33] LABS: Glucose Point of Care 144 mg/dL (70-110)
[2023-04-09] MEDS: isosorbide mononitrate ER 30 mg Tablet PO ×2 (08:59→17:55)
[2023-04-09] MEDS: atorvastatin 40 mg Tablet PO ×2 (08:59→17:55)
[2023-04-09] MEDS: pantoprazole DR 40 mg Tablet PO ×2 (09:00→17:55)
[2023-04-09] MEDS: hyDRALAzine 50 mg Tablet PO ×2 (09:00→17:55)
[2023-04-09] MEDS: loratadine 10 mg Tablet PO (09:00)
[2023-04-09] MEDS: metoprolol tartrate 50 mg Tablet PO ×2 (09:00→17:55)
[2023-04-09] MEDS: metoclopramide 10 mg Tablet PO ×2 (09:01→20:25)
[2023-04-09] MEDS: prazosin 1 mg Capsule PO ×2 (09:01→17:55)
[2023-04-09] MEDS: allopurinol 100 mg Tablet PO (09:01)
[2023-04-09] MEDS: FUROsemide 10 mg/mL SDV 10mL 100 MG IVP ×2 (09:02→20:24)
[2023-04-09] MEDS: insulin glargine 100 units/1 mL 10 UNIT SUBCUT (09:03)
[2023-04-09] MEDS: insulin lispro 100 unit/1 mL SUBCUT ×3 (09:03→21:15)
--- NOTE | 2023-04-09 09:57 | ANES.PREANE2 ---
Pre-Anesthetic Assessment Height/Weight: Height 1.63 m Weight 72.892 kg Temp Pulse Resp BP Pulse Ox O2 Del Method O2 Flow Rate 98.5 F 68 18 116/56 97 Nasal Cannula 1 04/09/23 07:26 04/09/23 08:31 04/09/23 08:31 04/09/23 07:26 04/09/23 08:31 04/09/23 08:31 04/09/23 08:31 Operation Date: 04/09/23 14:05 Proposed Procedures p Dialysis Catheter Insertion(Not Applicable) - Juan Rene DO Familial anesthetic complications: none Was Beta Iris taken within 24 hours: N/A Was Clonidine taken within 24 hours: N/A Last intake: > 8 hrs Social No alcohol and No tobacco Exam alert, oriented x 3, clear to auscultation bilaterally and regular rate & rhythm Airway Mallampati: Class III Dentition: chipped Pulmonary Chronic Obstructive Pulmonary Disease and Sleep Apnea CV/HEM Anemia (s/p prbc), Coronary Artery Disease (cabg/stents), Congestive Heart Failure 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 1. Left main artery ? 2. : Patent. LAD: Has patent prior stents. Distal vessel has diffuse disease. Left circumflex artery: Occluded. SVG to RCA: Patent. SVGto OM: Known occluded . ? 3. Coronary anatomy unchanged from before. ? 4. Patient has prior CABG. Recommendations ? * Aggressive risk factor modification. ? * Will need hydration to avoid ELIZABETH. Chronic Renal Failure Metabolic Diabetes Mellitus Anesthetic Plan ASA status: 4 Anesthesia: MAC Risk of > 500 ml blood loss (7ml/kg in children): No Medications/Allergies Home Medications Medication Instructions Recorded Confirmed Last Taken Type ascorbic acid (vitamin C) 500 mg 500 mg PO [employer] #100 tabs 08/22/21 04/07/23 04/07/23 Rx tablet (Vitamin C) aspirin 81 mg tablet,delayed 81 mg PO [facility] 90 days #90 tabs 08/22/21 04/07/23 04/07/23 Rx release vitamin E 268 mg (400 unit) capsule 400 unit PO [employer] #90 caps 08/22/21 04/07/23 04/07/23 Rx loratadine 10 mg tablet 10 mg PO DAILY 08/25/22 04/07/23 04/07/23 History One touch test strips #3 ea 09/01/22 04/07/23 Unknown Rx blood-glucose meter,continuous #1 ea 09/14/22 04/07/23 Unknown Rx (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) blood-glucose sensor (Dexcom G6 #9 ea 09/14/22 04/07/23 Unknown Rx Sensor device) blood-glucose transmitter ([employer]excom #1 ea 09/14/22 04/07/23 Unknown Rx G6 Transmitter device) vitamin B complex 1 tab PO DAILY 09/29/22 04/07/23 04/07/23 History flash glucose scanning reader #1 ea 10/05/22 04/07/23 Unknown Rx (FreeStyle Elli 2 [place]) flash glucose sensor (FreeStyle #6 ea 10/05/22 04/07/23 Unknown Rx Elli 2 Sensor kit) budesonide-formoterol HFA 80 2 inh inhalation BID lungs & 10/14/22 04/07/23 03/24/23 Rx mcg-4.5 mcg/actuation aerosol breathing 30 days #10.2 grams inhaler (Symbicort) potassium chloride 20 mEq See Rx Instructions .Route .COMPLEX 11/18/22 04/07/23 04/07/23 History tablet,extended release(part/cryst) (Klor-Con M) docusate sodium 50 mg capsule 100 mg PO BID 12/08/22 04/07/23 04/07/23 History (Stool Softener) metoprolol tartrate 50 mg tablet 50 mg PO BID blood pressure 12/08/22 04/07/23 04/07/23 History prazosin 1 mg capsule 1 mg PO BID 12/08/22 04/07/23 04/07/23 History simethicone 250 mg capsule 250 mg PO TID PRN Gastrointestinal 12/08/22 04/07/23 01/24/23 History Spasms Or Cramping vit A 7,160 unit-vit C 113 mg-vit 1 tab PO DAILY 12/08/22 04/07/23 04/07/23 History E 100 yydl-ezrp-obleyh tablet (EyeProtect) hydralazine 50 mg tablet 50 mg PO BID blood Pressure #180 12/14/22 04/07/23 04/07/23 Rx tabs allopurinol 100 mg tablet 100 mg PO DAILY gout 30 days #30 12/17/22 04/07/23 04/07/23 Rx tabs insulin aspart U-100 100 unit/mL See Rx Instructions .Route .COMPLEX 01/22/23 04/07/23 04/07/23 History (3 mL) subcutaneous pen (Novolog FlexPen U-100 Insulin aspart) insulin glargine 100 unit/mL (3 13 unit SUBCUT DAILY 01/22/23 04/07/23 04/07/23 History mL) subcutaneous pen (Lantus Solostar U-100 Insulin) triamcinolone acetonide 0.025 % 1 applic topical DAILY PRN Rash 01/22/23 04/07/23 Unknown History topical cream cholecalciferol (vitamin D3) 50 100 mcg PO DAILY 01/25/23 04/07/23 04/07/23 History mcg (2,000 unit) capsule (Vitamin D3) tramadol 50 mg tablet 50 mg PO Q8H PRN pain 15 days #45 02/10/23 04/07/23 Unknown Rx tabs ferrous sulfate 325 mg (65 mg 325 mg PO DAILY 02/11/23 04/07/23 04/07/23 History iron) tablet (FeroSul) bumetanide 1 mg tablet 1 mg PO Q12H Heart failure #60 tabs 03/12/23 04/07/23 04/07/23 Rx isosorbide mononitrate 30 mg 30 mg PO BID chest pain 90 days 03/12/23 04/07/23 04/07/23 Rx tablet,extended release 24 hr #180 tabs nitroglycerin 0.4 mg sublingual 0.4 mg sublingual Q5M PRN chest 03/31/23 04/07/23 04/06/23 Rx tablet (Nitrostat) pain #25 tabs atorvastatin 40 mg tablet 40 mg PO BID #60 tabs 04/01/23 04/07/23 04/07/23 Rx metoclopramide HCl 10 mg tablet 10 mg PO TID #90 tabs 04/01/23 04/07/23 04/07/23 Rx metolazone 2.5 mg tablet 2.5 mg PO DAILY PRN Edema 04/01/23 04/07/23 Unknown History pantoprazole 40 mg tablet,delayed 40 mg PO BID acid reflux #60 tabs 04/01/23 04/07/23 04/07/23 Rx release Allergies Allergy/AdvReac Type Severity Reaction Status Date / Time Influenza Virus Vaccines Allergy Severe ADR-Hyperte Verified 04/07/23 12:52 nsion Penicillins Allergy ALGY-Anaphy Verified 04/07/23 12:52 laxis Current Medications Generic Name Dose Route Start Last Admin Trade Name Freq PRN Reason Stop Dose Admin Albuterol/Ipratropium 3 ml 04/07/23 18:51 04/08/23 08:44 Ipratropium-Albuterol 3 Ml Neb INHALATION 3 ml Q4H PRN Administration SHORTNESS OF BREATH Allopurinol 100 mg 04/08/23 09:00 04/09/23 09:01 Allopurinol 100 Mg Tablet PO 100 mg DAILY SUNSHINE Administration Aspirin 81 mg 04/08/23 06:00 04/09/23 05:19 Aspirin 81 Mg Ec Tablet PO 81 mg QAM SUNSHINE Administration Atorvastatin Calcium 40 mg 04/08/23 09:00 04/09/23 08:59 Atorvastatin 40 Mg Tablet PO 40 mg BID SUNSHINE Administration Budesonide 0.5 mg 04/07/23 20:00 04/09/23 08:30 Budesonide 0.5 Mg/2 Ml Neb INHALATION Not Given BID.RESPIRATORY SUNSHINE Diphenhydramine HCl 50 mg 04/08/23 19:29 04/08/23 20:13 Diphenhydramine 50 Mg Capsule PO 50 mg BEDTIME PRN Administration INSOMNIA Furosemide 100 mg 04/07/23 20:00 04/09/23 09:02 Furosemide 10 Mg/Ml Sdv 10ml IVP 100 mg Q12H SUNSHINE Administration Heparin Sodium (Porcine) 5,000 unit 04/07/23 20:00 04/08/23 20:13 Heparin 5,000 Unit/Ml Inj 1 Ml SUBCUT 5,000 unit Q12H SUNSHINE Administration Hydralazine HCl 50 mg 04/08/23 09:00 04/09/23 09:00 Hydralazine 50 Mg Tablet PO 50 mg BID SUNSHINE Administration Insulin Glargine 10 unit 04/08/23 09:00 04/09/23 09:03 Insulin Glargine 100 Units/1 Ml SUBCUT 10 unit DAILY SUNSHINE Administration Insulin Human Lispro 0 unit 04/07/23 21:00 04/09/23 09:03 Insulin Lispro 100 Unit/1 Ml SUBCUT 2 unit WM&BEDTIME SUNSHINE Administration Protocol Isosorbide Mononitrate 30 mg 04/08/23 09:00 04/09/23 08:59 Isosorbide Mononitrate Er 30 Mg Tablet PO 30 mg BID SUNSHINE Administration Loratadine 10 mg 04/08/23 09:00 04/09/23 09:00 Loratadine 10 Mg Tablet PO 10 mg DAILY SUNSHINE Administration Metoclopramide HCl 10 mg 04/07/23 21:00 04/09/23 09:01 Metoclopramide 10 Mg Tablet PO 10 mg TID SUNSHINE Administration Metoprolol Tartrate 50 mg 04/08/23 09:00 04/09/23 09:00 Metoprolol Tartrate 50 Mg Tablet PO 50 mg BID SUNSHINE Administration Pantoprazole Sodium 40 mg 04/08/23 09:00 04/09/23 09:[address] 40 Mg Tablet PO 40 mg BID SUNSHINE Administration Prazosin HCl 1 mg 04/08/23 09:00 04/09/23 09:01 Prazosin 1 Mg Capsule PO 1 mg BID SUNSHINE Administration PFSH Anesthesia Medical History Abdominal ascites Acute non-ST segment elevation myocardial infarction (NSTEMI) following previous myocardial infarction Allergic rhinitis due to allergen Anemia, chronic renal failure CAD (coronary artery disease) remote CABG, NSTEMI, Stents 07/2021 CHF (congestive heart failure) Chronic GERD Chronic nausea CKD stage 4 due to type 2 diabetes mellitus COPD (chronic obstructive pulmonary disease) Current non-smoker Quit 06/28/2021 after 57 years at 1.5 packs/day Diabetes mellitus, type II Duodenal ulcer Essential hypertension Gout Hypercholesterolemia Hyperlipemia, mixed Inflammatory monoarthritis of right wrist Ischemic cardiomyopathy ORA on CPAP Postprandial abdominal bloating Sinus node dysfunction Swelling of joint, wrist, right Surgical History History of appendectomy History of coronary artery stent placement Hx of CABG Family History Father Cancer Mother Diabetes Heart attack Social History Smoking and tobacco status: former smoker Quit status (tobacco): has quit using tobacco Year quit tobacco: June 2021 Former quit date comment: 1.5ppd x 57years Alcohol intake: current Alcohol intake frequency: holidays/special occasions only Alcohol type: beer Substance/Drug Use: never Desire information about substance/drug rehabilitation?: No Caregiver/support person: No Lives independently: Yes Household members: spouse Marital status: Number of children: 2 service: No Current occupational status: retired and disabled Do you think of yourself as: Straight/Heterosexual Current gender identity: Male Data Anesthesia 04/09/23 05:06 04/09/23 05:06 Short CBC 04/07/23 04/08/23 04/09/23 Range/Units 13:10 04:40 05:06 WBC 14.98 H 17.71 H 12.87 H (3.29-11.43) 10^3/uL Hgb 6.20 L* 8.10 L D 7.20 L (11.27-16.99) g/dL Hct 20.8 L* 25.7 L 24.5 L (37-53) % MCV 103.0 H 99.6 102.5 H (82-101) fl Plt Count 339 357 307 (157-399) 10^3/cmm Neut % (Auto) 86.3 83.9 79.8 % Neut # (Auto) 12.93 H 14.83 H 10.29 H (1.8-7.7) 10^3/uL BMP 04/07/23 04/08/23 04/09/23 13:10 04:40 05:06 Sodium 136 139 143 Potassium 4.4 3.8 3.6 Chloride 97 L 100 102 Carbon Dioxide 23 25 27 BUN 142 H* 129 H* 125 H* Creatinine 4.0 H 4.1 H 3.7 H Glucose 310 H 159 H 120 H Calcium 8.6 8.7 8.8 Cardiac Enzymes 04/07/23 04/07/23 04/07/23 Range/Units 13:10 13:10 15:17 Troponin T Baseline 253 H* (0-15) ng/L Troponin T 120 Minute 248.9 H (0-15) ng/L Delta Troponin T -4.1 L (0-10) ABS# Troponin T Hi Sens 6Hr (0-15) ng/L Troponin T Hi Sens 6Hr Delta (0-12) ng/L NT-Pro-B Natriuret Pep 81241 H (0-125) pg/mL 04/07/23 Range/Units 18:45 Troponin T Baseline (0-15) ng/L Troponin T 120 Minute (0-15) ng/L Delta Troponin T (0-10) ABS# Troponin T Hi Sens 6Hr 250.6 H (0-15) ng/L Troponin T Hi Sens 6Hr Delta -2.4 L (0-12) ng/L NT-Pro-B Natriuret Pep (0-125) pg/mL Liver Function 04/07/23 04/08/23 04/09/23 Range/Units 13:10 04:40 05:06 Total Bilirubin 0.4 0.4 (0.15-1.2) mg/dL AST 22 20 (0-40) U/L ALT 25 26 (0-41) U/L Alkaline Phosphatase 107 106 (40-130) U/L Albumin 3.6 3.3 L 3.2 L (3.5-5.2) g/dL Urine 04/07/23 Range/Units 15:57 Urine Color Yellow (Yellow) Urine Appearance Clear (CLEAR) Urine pH 5 (5-7) Ur Specific [place] 1.010 (1.005-1.030) Urine Protein Neg (Negative) Urine Glucose (UA) Norm (Normal) Urine Ketones Negative (Negative) Urine Nitrate Negative (Negative) Urine Bilirubin Neg (Negative) Ur Leukocyte Esterase Negative (Negative) Blood Bank 04/07/23 18:45 Blood Type A Positive Rho(D) Type Positive Antibody Screen Negative Cardiac Studies: Echocardiogram 08/25/22 Echocardiogram Limited Views 08/05/21 Sestamibi Stress Test (Cardiology) 05/15/21 Cardiac Event Monitor 07/02/21
--- NOTE | 2023-04-09 10:06 | PM.PN ---
Subjective Subjective: seen during HD after permcath placement also had peritoneal dialysis catheter placement by Dr Rene today Vitals/I&O/Wt Last Vital Signs Temp 98.5 F 04/09/23 07:26 Pulse 68 04/09/23 08:31 Resp 18 04/09/23 08:31 BP 116/56 04/09/23 07:26 Pulse Ox 97 04/09/23 08:31 O2 Del Method Nasal Cannula 04/09/23 08:31 O2 Flow Rate 1 04/09/23 08:31 04/08/23 04/09/23 04/09/23 22:59 06:59 14:59 Intake Total 970 / 2290 400 / 2690 Output Total 1350 / 4000 400 / 400 Balance 970 / -360 -950 / -1310 -400 / -400 Weight last 48 hrs Weight 72.892 kg Weight 72.62 kg Weight 72.575 kg Physical Exam Const: GENERAL APPEARANCE: lethargic and ill appearing ORIENTATION/CONSCIOUSNESS: Yes lethargic Neuro: SENSORIUM/ORIENTATION: Yes lethargic Urinary Catheter Management: Feng: Cath Placed During This Visit: yes Reason for Continuing Indwelling Catheter: Accurate Measurement of Urinary Output in Critically Ill Patients Urinary Catheter Date of Insertion: 04/07/23 Urinary Catheter Time of Insertion: 09:50 Data 04/09/23 05:06 04/09/23 05:06 CXR: Radiologist's impression: 1. Cardiac enlargement unchanged. No acute process noted. 2. Double-lumen dialysis catheter ending in the RIGHT atrium. Other data: seen via telemedicine with assistance of RN at bedside A&P Assessment and plan (1) CKD stage 4 due to type 2 diabetes mellitus: Plan 1. Stage 5 chronic kidney disease, uremic, volume overloaded. Had tunneled hemodialysis catheter and peritoneal dialyiss catheter placement today. HD today 2 hrs, again tomorrow 3h. Arrange for placement at outpatient HD unit. 2. Hypertension: Blood pressure controlled 3. Anemia: Status post transfusion, ANDREI ordered Attestations Medical Necessity Statement*: see above Time Spent in Patient Care: 16 - 35 minutes Coding Level of Care Code Acute Code for Chg Fwd Diagnoses CKD stage 4 due to type 2 diabetes mellitus E11.22; N18.4
--- NOTE | 2023-04-09 10:13 | PC.NURSE ---
Patient off floor for surgery
--- NOTE | 2023-04-09 10:16 | PM.PN ---
Vitals/I&O/Wt Last Vital Signs Temp 98 F 04/09/23 10:15 Pulse 60 04/09/23 10:15 Resp 17 04/09/23 10:15 BP 123/50 04/09/23 10:15 Pulse Ox 96 04/09/23 10:15 O2 Del Method Nasal Cannula 04/09/23 08:31 O2 Flow Rate 2.5 04/09/23 10:15 04/08/23 04/09/23 04/09/23 22:59 06:59 14:59 Intake Total 970 / 2290 400 / 2690 Output Total 1350 / 4000 400 / 400 Balance 970 / -360 -950 / -1310 -400 / -400 Weight last 48 hrs Weight 160 lb 11.2 oz Weight 160 lb 1.6 oz Weight 160 lb Physical Exam Urinary Catheter Management: Feng: Cath Placed During This Visit: yes Reason for Continuing Indwelling Catheter: Accurate Measurement of Urinary Output in Critically Ill Patients Urinary Catheter Date of Insertion: 04/07/23 Urinary Catheter Time of Insertion: 09:50 Data 04/09/23 05:06 04/09/23 05:06 A&P Assessment and plan (1) CKD stage 4 due to type 2 diabetes mellitus: Plan Permacath placement Peritoneal dialysis catheter placement The risks and benefits of the procedure, including but not limited to, bleeding, infection, infection requiring Mediport removal antibiotic therapy and repeat surgery, damage to surrounding structures, scar, numbness, pain, pneumothorax requiring thoracostomy tube, were explained to the patient. He/She is understanding of the risks and wishes to proceed. Attestations Medical Necessity Statement*: Per primary Coding Level of Care Code Acute Code for Chg Fwd Diagnoses CKD stage 4 due to type 2 diabetes mellitus E11.22; N18.4
[2023-04-09] MEDS: vancomycin 1,000 MG in sodium chloride 0.9% 250 ML 250 MG IV (11:02)
[2023-04-09] MEDS: sodium chloride 0.9% 1,000 ML 30 ML IV (11:02)
[2023-04-09] MEDS: heparin, porcine 1,000 unit/mL INJ 10 mL 6000 UNIT XX (11:54)
--- NOTE | 2023-04-09 12:05 | SC_ITS ---
WS: [id number] INTRAOPERATIVE TECHNIQUE: 1 Spot fluoroscopic images for intraoperative purposes. FLUOROSCOPY TIME: 2.1 seconds CLINICAL INFORMATION: OR PIC COMPARISON: None. FINDINGS: RIGHT dual-lumen central venous catheter with tips in the RIGHT atrium and RIGHT ventricle.. Endotrac heal tube. Sternotomy. No visualized pneumothorax. IMPRESSION: Images obtained for intraoperative purposes.
--- NOTE | 2023-04-09 12:11 | P.OP_ITS ---
Operative Report Date of procedure: April 09, 2023 Pre-op diagnosis: End-stage renal disease Post-op diagnosis: same Procedure done: Permacath placement and laparoscopic peritoneal dialysis catheter placement Implants: Permacath and peritoneal dialysis catheter Specimens removed/disposition: None Surgeon: Juan Rene DO Anesthesia: General Estimated blood loss (mL): 5 Complications: None apparent Brief History: This is a very pleasant 68-year-old gentleman who is in end-stage renal disease. Nephrology requested PermCath and peritoneal dialysis catheter placement. The risk and benefits were explained and documented. Procedure: Patient was taken to the operating room and placed supine on the operating room table. All bony prominences were padded. He was given IV sedation and monitored throughout the case by the anesthesia personnel. SCDs were placed and turned on. The arms were tucked to the side. Patient received Vancomycin preoperatively IV. The bilateral chest wall was prepped and draped in usual sterile fashion using chlorhexidine base prep. Sterile drapes were applied. We did procedure pause prior to beginning. An 18 gauge needle was placed in the right internal jugular vein under ultrasound guidance. Dark, nonpulsatile blood was aspirated. A guidewire was placed through the needle centrally toward the atrial/vena caval junction. Fluoroscopy visualized good placement. The needle was removed and the guidewire was clipped to the drape with a hemostat. Further local anesthetic was infiltrated in the soft tissues of the right chest wall and a #15 blade was used to make a vertical skin incision. A #15 blade was used to make a small skin shelia around the guidewire insertion area. The permacath tubing was tunneled through the subcutaneous tissues up to the needle insertion location. Serial dilators were used to serially dilate over the guidewire . A dilator with a peel-away sheath was placed over the guidewire and placed centrally. The guidewire was removed as well as the dilator and the permacath was fed into the split sheath. The split sheath was removed. Both ports were aspirated to reveal dark blood and were flushed with saline only as the patient has a heparin allergy. final fluoroscopy visualization showed no kink in the catheter and the tip of the permacath tubing near the atrial/vena caval junction. Both skin incisions were thoroughly irrigated and suctioned dry. Meticulous hemostasis noted. The internal jugular access site was closed with 4-0 Vicryl in a subcuticular fashion. The skin overlying the permacath was closed in a similar manner. The permacath was then sutured into place using 2-0 nylon in a simple interrupted fashion. skin glue was applied as a topical dressing. This was allowed to dry. The abdomen was inspected prepped and draped in usual sterile fashion. A timeout was performed all present were in agreement. A Veress needle was placed in the left upper quadrant and intra-abdominal insufflation was brought to 15 mmHg. A 5 mm trocar was then placed into the site using [employer]. A second 5 mm trocar was placed in the left lower quadrant. An 8 mm trocar was then placed just left of the umbilicus and tunneled subcutaneously and then preperitoneal he down to the pelvis. This was done under direct visualization. A peritoneal dialysis catheter was then fed through this trocar down into the pelvis. Both cuffs were noted to be subcutaneously and preperitoneum only. The catheter appeared in good working order. Ports were removed. A 2-0 Ethilon suture was used to suture the catheter in place. Skin was closed using 4-0 Monocryl in a subcutaneous fashion. Dermabond was applied. Patient tolerated the procedure well.
[2023-04-09] MEDS: lidocaine-epi 2% 20 mL INJ INJECTION (12:13)
--- NOTE | 2023-04-09 12:14 | XR_ITS ---
WS: [id number] Exam: XR chest 1V portable [id number] Date/Time of Exam: 04/09/2023 12:37 PM Reason For Exam: Post-op permacath placement Comparison 04/07/2023. The lungs are clear and fully inflated. The heart is enlarged but unchanged in size. A right-sided double-lumen dialysis catheter ends in the right atrium. Signs of previous CABG s urgery as well as coronary artery stenting. The mediastinum is prominent most likely due to technique . Bony structures are intact. No pleural effusion. IMPRESSION: 1. Cardiac enlargement unchanged. No acute process noted. 2. Double-lumen dialysis catheter ending in the RIGHT atrium.
--- NOTE | 2023-04-09 13:15 | ANE.PACU2 ---
Inpatient post-anesthesia follow up: Airway intact: Yes Vital signs: Temperature 98.5 F Pulse Rate 70 Respiratory Rate 15 Blood Pressure 116/51 Pulse Oximetry 91 Oxygen Delivery Me thod Room Air Oxygen Flow Rate 2.5 Fraction of Inspir ed Oxygen Hydration adequate: Yes Nausea and vomiting: No Pain level: 1 Mental status: Baseline
--- NOTE | 2023-04-09 13:16 | P.PN_ITS ---
Subjective Subjective: Patient is doing well. no chest pain. Has dialysis catheter put in. Vitals/I&O/Wt Last Vital Signs Temp 97.0 F L 04/09/23 12:30 Pulse 70 04/09/23 13:05 Resp 15 04/09/23 13:05 BP 133/62 04/09/23 13:05 Pulse Ox 91 04/09/23 13:05 O2 Del Method Room Air 04/09/23 13:00 O2 Flow Rate 2.5 04/09/23 10:15 04/08/23 04/09/23 04/09/23 22:59 06:59 14:59 Intake Total 970 / 2290 400 / 2690 259 / 259 Output Total 1350 / 4000 405 / 405 Balance 970 / -360 -950 / -1310 -146 / -146 Weight last 48 hrs Weight 160 lb 11.2 oz Weight 160 lb 1.6 oz Physical Exam Narrative: GENERAL: Patient is alert, awake and oriented x3. [] NECK: No jugular vein distension. [] HEENT: No cyanosis. No icterus. No pallor. [] HEART: Regular S1 and S2. No murmur, rub or gallop. [] LUNGS:Diminished air entry CENTRAL NERVOUS SYSTEM: Grossly nonfocal. [] EXTREMITIES: Lower extremities with 1+ edema bilaterally. Pulses palpable in the lower extremities, both dorsalis pedis and posterior tibial. [] Urinary Catheter Management: Feng: Cath Placed During This Visit: yes Reason for Continuing Indwelling Catheter: Accurate Measurement of Urinary Output in Critically Ill Patients Urinary Catheter Date of Insertion: 04/07/23 Urinary Catheter Time of Insertion: 09:50 Data 04/09/23 05:06 04/09/23 05:06 A&P Assessment and plan (1) Elevated troponin: (2) Weakness generalized: (3) Acute dyspnea: (4) Anemia, chronic renal failure: Qualifiers: Chronic kidney disease stage: unspecified stage Qualified Code(s): N18.9 - Chronic kidney disease, unspecified; D63.1 - Anemia in chronic kidney disease (5) CAD (coronary artery disease): Qualifiers: Coronary Disease-Associated Artery/Lesion type: bypass graft [place] vs. transplanted heart: [place] heart Associated angina: with unstable angina Qualified Code(s): I25.700 - Atherosclerosis of coronary artery bypass graft(s), unspecified, with unstable angina pectoris (6) CHF (congestive heart failure): (7) Essential hypertension: Plan Patient has been started on dialysis. Continue per recommendations from nephrology. Blood transfusion as needed. Ischemic work-up can be pursued as outpatient. Continue aggressive medical therapy. Thank you for involving us with care of this patient. We will continue to follow. Please call with questions. Attestations Medical Necessity Statement*: Care expected to cross 2 midnights. Coding Level of Care Code Acute Code for Chg Fwd Diagnoses Elevated troponin R77.8 Weakness generalized R53.1 Acute dyspnea R06.00 Anemia, chronic renal failure N18.9; D63.1 Chronic kidney disease stage: unspecified stage CAD (coronary artery disease) I25.700 Coronary Disease-Associated Artery/Lesion type: bypass graft [place] vs. transplanted heart: [place] heart Associated angina: with unstable angina CHF (congestive heart failure) I50.9 Essential hypertension I10
--- NOTE | 2023-04-09 13:34 | P.PN_ITS ---
Subjective Subjective: Patient denies any new complaints this morning. Endorses shortness of breath with activity. Denies any chest pain. Reports being NPO for procedure today. He is unsure of procedure time. States spouse is outside making phone calls. Rounded again to update spouse, but patient in surgery and spouse not in room. Will plan to see if bedside later today. Medications: Reviewed: Yes Vitals/I&O/Wt Last Vital Signs Temp 97.0 F L 04/09/23 12:30 Pulse 70 04/09/23 13:05 Resp 15 04/09/23 13:05 BP 133/62 04/09/23 13:05 Pulse Ox 91 04/09/23 13:05 O2 Del Method Room Air 04/09/23 13:00 O2 Flow Rate 2.5 04/09/23 10:15 04/08/23 04/09/23 04/09/23 22:59 06:59 14:59 Intake Total 970 / 2290 400 / 2690 259 / 259 Output Total 1350 / 4000 405 / 405 Balance 970 / -360 -950 / -1310 -146 / -146 Weight last 48 hrs Weight 72.892 kg Weight 72.62 kg Physical Exam Narrative: General: Patient is awake. Conversational. Head: Normocephalic. Atraumatic. EOM intact. Neck: No JVD. Cardiovascular: Normal S1 and S1. No gallops. No murmurs. Edema in BLE. Sternotomy scar. Lungs: Breath sounds diminished in bilateral bases. No crackles or wheezes. Skin: No jaundice. No rashes. Spider angiomas. Abdomen: Normal bowel sounds, abdomen soft and nontender. Extremities: No cyanosis or clubbing. Musculoskeletal: No swollen or erythematous joints. Neurological: Moves all 4 extremities. No myoclonus. Urinary Catheter Management: Feng: Cath Placed During This Visit: yes Reason for Continuing Indwelling Catheter: Accurate Measurement of Urinary Output in Critically Ill Patients Urinary Catheter Date of Insertion: 04/07/23 Urinary Catheter Time of Insertion: 09:50 Data 04/09/23 05:06 04/09/23 05:06 A&P Assessment and plan (1) CKD stage 4 due to type 2 diabetes mellitus: MARCELO on CKD-IV Outpt nephro is Dr Aguilera in [facility] following, appreciate [facility] General surgery consulted, plan for HD and PD lines today Continue IV Lasix Feng for strict I&Os (2) Anemia, chronic renal failure: Anemia of CKD HGB goal of 8 Status post 1 pRBC and 1 dose of iron Plan to transfuse additional pRBC possibly, coordinate with dialysis Qualifiers: Chronic kidney disease stage: unspecified stage Qualified Code(s): N18.9 - Chronic kidney disease, unspecified; D63.1 - Anemia in chronic kidney disease (3) Elevated troponin: Cardiology following, appreciate recommendations Continue aspirin Continue statin Continue Imdur Continue BB (4) Weakness generalized: Debility and physical deconditioning Likely multifactorial given comorbidities Non-compliant with CPAP Treat underlying anemia, kidney disease, heart failure, etc (5) Acute dyspnea: With chronic hypoxic respiratory failure Multifactorial, treat underlying pathologies as noted above (6) CHF (congestive heart failure): Acute on chronic decompensated combined HFrEF exacerbation Strict I&Os Daily weights Hold oral Bumex Lasix 100 mg IV BID Continue BB Appreciate cardiology input (7) Diabetes mellitus, type II: Continue Lantus at reduced home dose SSI, low scale Avoid hypoglycemia Qualifiers: Diabetes mellitus [facility] insulin use: without superintendent [employer] use Diabetes mellitus complication status: with hyperglycemia Qualified Code(s): E11.65 - Type 2 diabetes mellitus with hyperglycemia (8) CAD (coronary artery disease): Management as above Qualifiers: Coronary Disease-Associated Artery/Lesion type: bypass graft [place] vs. transplanted heart: [place] heart Associated angina: with unstable angina Qualified Code(s): I25.700 - Atherosclerosis of coronary artery bypass graft(s), unspecified, with unstable angina pectoris (9) Essential hypertension: Continue metoprolol Continue hydralazine (10) COPD (chronic obstructive pulmonary disease): Pulmicort DuoNebs PRN Qualifiers: Emphysema type: panlobular Plan DVT ppx: Heparin Code Status: Full Attestations Medical Necessity Statement*: Patient remains volume overload with significant MARCELO on CKD-IV requiring the initiation of dialysis for which he requires ongoing hospitalization for PD cathter placement, HD cath placement, initation of dialysis, IV diuresis, telemetry, and supportive care. Coding Level of Care Code Acute Code for Chg Fwd Diagnoses CKD stage 4 due to type 2 diabetes mellitus E11.22; N18.4 Anemia, chronic renal failure N18.9; D63.1 Chronic kidney disease stage: unspecified stage Elevated troponin R77.8 Weakness generalized R53.1 Acute dyspnea R06.00 CHF (congestive heart failure) I50.9 Diabetes mellitus, type II E11.65 Diabetes mellitus [facility] insulin use: without superintendent [employer] use Diabetes mellitus complication status: with hyperglycemia CAD (coronary artery disease) I25.700 Coronary Disease-Associated Artery/Lesion type: bypass graft [place] vs. transplanted heart: [place] heart Associated angina: with unstable angina Essential hypertension I10 COPD (chronic obstructive pulmonary disease) J44.9 Emphysema type: panlobular
--- NOTE | 2023-04-09 18:14 | PC.NURSE ---
1 unit of blood was given to patient while in dialysis. Quentin Gale was the RN watching over patient at that time. This nurse went upstairs and verified and started the blood but a technical issue must have occurred because the chart does not show the blood work was started.
--- NOTE | 2023-04-09 19:01 | PC.NURSE ---
Dressings to right upper chest and left lower abdomen remains c,d,i. No s/s of bleeding or swelling observed. Will continue to monitor.
[2023-04-09] MEDS: ipratropium-albuterol 3 mL Neb INHALATION (19:48)
[2023-04-09] MEDS: heparin 5,000 unit/mL INJ 1 mL 5000 UNIT SUBCUT (20:24)
--- NOTE | 2023-04-09 20:55 | PC.NURSE ---
Patient refusing to have us check his blood sugar with our accucheck machine insisting that we use his Dexcom device attached to his right upper arm. Blood sugar at this time is 370 via dexcom.
[2023-04-09] MEDS: diphenhydrAMINE 50 mg Capsule PO (22:02)
[2023-04-09] MEDS: TRAMadol 50 mg Tablet 100 MG PO (22:02)
[2023-04-10] VITALS (17 sets, daily range): BP systolic 104–119; BP diastolic 44–60; PULSE 63–76; RESP 16–22; TEMP 36.4–37.2; O2SAT 93–100
[2023-04-10 04:33] LABS: Basophils % 0.1 %; Eosinophils # 0.1 10^3/uL (0.0-0.8); Eosinophils % 0.4 %; Hematocrit 29.5 % (37-53); Lymphocytes # 0.8 10^3/uL (0.8-4.8); Lymphocytes % 5.8 %; Mean Corpuscular HGB Conc 30.2 g/dL (30-55); Mean Corpuscular Hemoglobin 29.5 pg (27-33); Mean Corpuscular Volume 97.7 fl (82-101); Mean Platelet Volume 10.3 fL (7.4-10.4); Monocytes % 7.4 %; Neutrophils # 11.46 10^3/uL (1.8-7.7); Neutrophils % 85.6 %; Nucleated Red Blood Cells % 0.1 %; Platelet Count 297 10^3/cmm (157-399); Red Blood Count 3.02 10^6/uL (3.85-5.65); Red Cell Distribution Width 19.3 % (12.1-15.1); White Blood Count 13.41 10^3/uL (3.29-11.43)
[2023-04-10] MEDS: aspirin 81 mg EC Tablet PO (05:00)
[2023-04-10 05:01] LABS: Anion Gap 15.2 (5-19); Blood Urea Nitrogen 76 mg/dL (8-23); Calcium 8.5 mg/dL (8.5-10.5); Carbon Dioxide 27 mmol/L (22-29); Chloride 99 mmol/L (98-107); Glomerular Filtration Rate 16.4 mL/min (90-130); Glucose 175 mg/dL (65-115); Magnesium 2.2 mg/dL (1.7-2.3); Phosphorus 4.3 mg/dL (2.5-4.5); Potassium 4.2 mmol/L (3.5-5.1); Sodium 137 mmol/L (136-145)
[2023-04-10 06:44] LABS: Glucose Point of Care 163 mg/dL (70-110)
[2023-04-10] MEDS: budesonide 0.5 mg/2 mL Neb INHALATION ×2 (08:46→20:04)
[2023-04-10] MEDS: ipratropium-albuterol 3 mL Neb INHALATION ×2 (08:46→20:04)
[2023-04-10] MEDS: isosorbide mononitrate ER 30 mg Tablet PO ×2 (09:10→18:10)
[2023-04-10] MEDS: metoclopramide 10 mg Tablet PO ×3 (09:10→20:18)
[2023-04-10] MEDS: prazosin 1 mg Capsule PO ×2 (09:10→18:10)
[2023-04-10] MEDS: pantoprazole DR 40 mg Tablet PO ×2 (09:10→18:09)
[2023-04-10] MEDS: metoprolol tartrate 50 mg Tablet PO ×2 (09:10→18:10)
[2023-04-10] MEDS: heparin 5,000 unit/mL INJ 1 mL 5000 UNIT SUBCUT ×2 (09:10→20:18)
[2023-04-10] MEDS: allopurinol 100 mg Tablet PO (09:10)
[2023-04-10] MEDS: hyDRALAzine 50 mg Tablet PO ×2 (09:10→18:09)
[2023-04-10] MEDS: atorvastatin 40 mg Tablet PO ×2 (09:10→18:10)
[2023-04-10] MEDS: loratadine 10 mg Tablet PO (09:10)
[2023-04-10] MEDS: insulin lispro 100 unit/1 mL SUBCUT ×2 (09:11→20:30)
[2023-04-10] MEDS: FUROsemide 10 mg/mL SDV 10mL 100 MG IVP ×2 (09:11→20:19)
[2023-04-10] MEDS: insulin glargine 100 units/1 mL 10 UNIT SUBCUT (09:27)
--- NOTE | 2023-04-10 10:20 | P.PN_ITS ---
Subjective Subjective: sleepy; at bedside. She reports he has outpatient HD arranged T/Th/S Vitals/I&O/Wt Last Vital Signs Temp 98.9 F 04/10/23 07:29 Pulse 76 04/10/23 08:54 Resp 22 H 04/10/23 08:30 BP 109/60 04/10/23 07:29 Pulse Ox 96 04/10/23 08:30 O2 Del Method Nasal Cannula 04/10/23 08:30 O2 Flow Rate 2 04/10/23 08:30 04/09/23 04/10/23 04/10/23 22:59 06:59 14:59 Intake Total 689 / 948 400 / 1348 450 / 450 Output Total 410 / 815 150 / 965 565 / 565 Balance 279 / 133 250 / 383 -115 / -115 Weight last 48 hrs Weight 69.127 kg Weight 72.892 kg Physical Exam Urinary Catheter Management: Feng: Cath Placed During This Visit: yes Reason for Continuing Indwelling Catheter: Accurate Measurement of Urinary Outpu t in Critically Ill Patients Urinary Catheter Date of Insertion: 04/07/23 Urinary Catheter Time of Insertion: 09:50 Data 04/10/23 03:46 04/10/23 03:46 Other data: seen via telemedicine with assistance of RN at bedside A&P Assessment and plan (1) CKD stage 4 due to type 2 diabetes mellitus: Plan 1. ESRD. Hemodialysis initiated, via tunneled hemodialysis catheter, due to uremia, volume overload. Peritoneal dialysis catheter also placed. Plan for HD today. 2. Hypertension: Blood pressure controlled, can discontine prazosin and hydralazine and begin ARB. 3. Anemia: Status post transfusion, Hb stable ANDREI ordered Stable for discharge if outpatient HD unit is confirmed. I provided instruction on how to care for HD and PD cath. - Instructed not to change dressing or get dressing wet. Attestations Medical Necessity Statement*: per primary service Time Spent in Patient Care: 16 - 35 minutes Coding Level of Care Code Acute Code for Chg Fwd Diagnoses CKD stage 4 due to type 2 diabetes mellitus E11.22; N18.4
--- NOTE | 2023-04-10 10:41 | PM.PN ---
Subjective Subjective: Patient seen and examined. He got hemodialysis yesterday without complication. He has no complaints. Vitals/I&O/Wt Last Vital Signs Temp 98.9 F 04/10/23 07:29 Pulse 76 04/10/23 08:54 Resp 22 H 04/10/23 08:30 BP 109/60 04/10/23 07:29 Pulse Ox 96 04/10/23 08:30 O2 Del Method Nasal Cannula 04/10/23 08:30 O2 Flow Rate 2 04/10/23 08:30 04/09/23 04/10/23 04/10/23 22:59 06:59 14:59 Intake Total 689 / 948 400 / 1348 450 / 450 Output Total 410 / 815 150 / 965 565 / 565 Balance 279 / 133 250 / 383 -115 / -115 Weight last 48 hrs Weight 152 lb 6.4 oz Weight 160 lb 11.2 oz Physical Exam Narrative: General: No acute distress, awake alert and oriented x3 Abdomen: Soft, nontender, nondistended Catheter is in place without erythema or exudate Urinary Catheter Management: Feng: Cath Placed During This Visit: yes Reason for Continuing Indwelling Catheter: Accurate Measurement of Urinary Output in Critically Ill Patients Urinary Catheter Date of Insertion: 04/07/23 Urinary Catheter Time of Insertion: 09:50 Data 04/10/23 03:46 04/10/23 03:46 A&P Assessment and plan (1) End stage renal disease: Plan Permacath and peritoneal dialysis catheter placed yesterday Surgically cleared for discharge Follow-up with me in 2 weeks in my office Attestations Medical Necessity Statement*: Per primary Coding Level of Care Code 15689 Diagnoses End stage renal disease N18.6
--- NOTE | 2023-04-10 15:14 | PM.PN ---
Subjective Subjective: Patient reports improvement in shortness of breath. Denies chest pain. Reports good appetite. Tolerating dialysis well. Spouse bedside. She reports she has been working on trying to get his outpatient dialysis set up. Case management has yet to meet with pt and spouse. Discussed we will get that process started. Unclear if he has a chair time set up yet as outpatient. Medications: Reviewed: Yes Vitals/I&O/Wt Last Vital Signs Temp 98.0 F 04/10/23 11:32 Pulse 71 04/10/23 11:32 Resp 21 H 04/10/23 11:32 BP 104/60 04/10/23 11:32 Pulse Ox 93 04/10/23 11:32 O2 Del Method Room Air 04/10/23 11:32 O2 Flow Rate 2 04/10/23 08:30 04/10/23 04/10/23 04/10/23 06:59 14:59 22:59 Intake Total 400 / 1348 450 / 450 Output Total 150 / 965 565 / 565 Balance 250 / 383 -115 / -115 Weight last 48 hrs Weight 69.127 kg Weight 72.892 kg Physical Exam Narrative: General: Patient is awake. Alert. Pleasant. Head: Normocephalic. Atraumatic. EOM intact. Neck: No JVD. Cardiovascular: Normal S1 and S1. No gallops. No murmurs. Sternotomy scar. Lungs: Breath sounds diminished in bilateral bases. No crackles or wheezes. Skin: No jaundice. No rashes. Spider angiomas. Abdomen: Normal bowel sounds, abdomen soft and nontender. Extremities: No cyanosis or clubbing. Musculoskeletal: No swollen or erythematous joints. Neurological: Moves all 4 extremities. No myoclonus. Urinary Catheter Management: Feng: Cath Placed During This Visit: yes Reason for Continuing Indwelling Catheter: Accurate Measurement of Urinary Output in Critically Ill Patients Urinary Catheter Date of Insertion: 04/07/23 Urinary Catheter Time of Insertion: 09:50 Data 04/10/23 03:46 04/10/23 03:46 A&P Assessment and plan (1) CKD stage 4 due to type 2 diabetes mellitus: M[facility]O on CKD-V [facility] reccs Continue IV Lasix Feng for strict I&Os CM consulted (2) Anemia, chronic renal failure: Anemia of CKD HGB goal of 8 Hemoglobin improved w/ treatment Qualifiers: Chronic kidney disease stage: unspecified stage Qualified Code(s): N18.9 - Chronic kidney disease, unspecified; D63.1 - Anemia in chronic kidney disease (3) Elevated troponin: Cardiology following, appreciate recommendations Continue aspirin Continue statin Continue Imdur Continue BB (4) Weakness generalized: Debility and physical deconditioning Likely multifactorial given comorbidities Non-compliant with CPAP Treat underlying anemia, kidney disease, heart failure, etc (5) Acute dyspnea: With chronic hypoxic respiratory failure Multifactorial, treat underlying pathologies as noted above (6) CHF (congestive heart failure): Acute on chronic decompensated combined HFrEF exacerbation Strict I&Os Daily weights Hold oral Bumex Lasix 100 mg IV BID Continue BB Appreciate cardiology input (7) Diabetes mellitus, type II: Continue Lantus at reduced home dose SSI, low scale Avoid hypoglycemia Qualifiers: Diabetes mellitus intermediate insulin use: without joint terminal attack controller use Diabetes mellitus complication status: with hyperglycemia Qualified Code(s): E11.65 - Type 2 diabetes mellitus with hyperglycemia (8) CAD (coronary artery disease): Management as above Qualifiers: Coronary Disease-Associated Artery/Lesion type: bypass graft [place] vs. transplanted heart: [place] heart Associated angina: with unstable angina Qualified Code(s): I25.700 - Atherosclerosis of coronary artery bypass graft(s), unspecified, with unstable angina pectoris (9) Essential hypertension: Continue metoprolol Continue hydralazine (10) COPD (chronic obstructive pulmonary disease): Pulmicort DuoNebs PRN Qualifiers: Emphysema type: panlobular Plan DVT ppx: Heparin Code Status: Full Attestations Medical Necessity Statement*: Patient requires ongoing hospitalization for dialysis, serial labs, cardiology expertise, nephrology expertise, and initiation of outpatient dialysis. Coding Level of Care Code Acute Code for Chg Fwd Diagnoses CKD stage 4 due to type 2 diabetes mellitus E11.22; N18.4 Anemia, chronic renal failure N18.9; D63.1 Chronic kidney disease stage: unspecified stage Elevated troponin R77.8 Weakness generalized R53.1 Acute dyspnea R06.00 CHF (congestive heart failure) I50.9 Diabetes mellitus, type II E11.65 Diabetes mellitus joint terminal attack controller insulin use: without joint terminal attack controller use Diabetes mellitus complication status: with hyperglycemia CAD (coronary artery disease) I25.700 Coronary Disease-Associated Artery/Lesion type: bypass graft [place] vs. transplanted heart: [place] heart Associated angina: with unstable angina Essential hypertension I10 COPD (chronic obstructive pulmonary disease) J44.9 Emphysema type: panlobular
[2023-04-10] MEDS: diphenhydrAMINE 50 mg Capsule PO (20:18)
[2023-04-10] MEDS: TRAMadol 50 mg Tablet 100 MG PO (20:19)
[2023-04-11] VITALS (10 sets, daily range): BP systolic 105–119; BP diastolic 47–57; PULSE 68–71; RESP 16–25; TEMP 36.6–37.3; O2SAT 91–100
[2023-04-11 04:42] LABS: Basophils % 0.2 %; Eosinophils # 0.4 10^3/uL (0.0-0.8); Eosinophils % 3.9 %; Hematocrit 31.7 % (37-53); Lymphocytes # 1.2 10^3/uL (0.8-4.8); Mean Corpuscular HGB Conc 29.7 g/dL (30-55); Mean Corpuscular Hemoglobin 29.6 pg (27-33); Mean Corpuscular Volume 99.7 fl (82-101); Mean Platelet Volume 10.1 fL (7.4-10.4); Monocytes % 8.9 %; Neutrophils % 75.5 %; Nucleated Red Blood Cells % 0 %; Platelet Count 299 10^3/cmm (157-399); Red Blood Count 3.18 10^6/uL (3.85-5.65)
[2023-04-11] MEDS: aspirin 81 mg EC Tablet PO (05:03)
[2023-04-11 05:17] LABS: Albumin Level 3.1 g/dL (3.5-5.2); Anion Gap 17.5 (5-19); Blood Urea Nitrogen 37 mg/dL (8-23); Calcium 8.4 mg/dL (8.5-10.5); Carbon Dioxide 26 mmol/L (22-29); Chloride 102 mmol/L (98-107); Glomerular Filtration Rate 20.1 mL/min (90-130); Glucose 105 mg/dL (65-115); Phosphorus 3.4 mg/dL (2.5-4.5); Potassium 4.5 mmol/L (3.5-5.1); Sodium 141 mmol/L (136-145)
[2023-04-11 06:29] LABS: Glucose Point of Care 136 mg/dL (70-110)
[2023-04-11] MEDS: isosorbide mononitrate ER 30 mg Tablet PO ×2 (09:35→17:10)
[2023-04-11] MEDS: metoclopramide 10 mg Tablet PO ×3 (09:36→20:09)
[2023-04-11] MEDS: metoprolol tartrate 50 mg Tablet PO ×2 (09:36→17:10)
[2023-04-11] MEDS: pantoprazole DR 40 mg Tablet PO ×2 (09:36→17:10)
[2023-04-11] MEDS: prazosin 1 mg Capsule PO (09:36)
[2023-04-11] MEDS: hyDRALAzine 50 mg Tablet PO (09:36)
[2023-04-11] MEDS: loratadine 10 mg Tablet PO (09:36)
[2023-04-11] MEDS: atorvastatin 40 mg Tablet PO ×2 (09:37→17:10)
[2023-04-11] MEDS: heparin 5,000 unit/mL INJ 1 mL 5000 UNIT SUBCUT ×2 (09:37→20:10)
[2023-04-11] MEDS: FUROsemide 10 mg/mL SDV 10mL 100 MG IVP (09:37)
[2023-04-11] MEDS: allopurinol 100 mg Tablet PO (09:37)
[2023-04-11] MEDS: insulin glargine 100 units/1 mL 10 UNIT SUBCUT (09:38)
--- NOTE | 2023-04-11 09:54 | PM.PN ---
Subjective Subjective: feels better. Pt has been consulted Vitals/I&O/Wt Last Vital Signs Temp 98.0 F 04/11/23 07:28 Pulse 71 04/11/23 07:47 Resp 16 04/11/23 07:47 BP 119/57 04/11/23 07:28 Pulse Ox 91 04/11/23 07:47 O2 Del Method Nasal Cannula 04/11/23 07:47 O2 Flow Rate 2 04/11/23 07:47 04/10/23 04/11/23 04/11/23 22:59 06:59 14:59 Intake Total 1470 / 1920 650 / 2570 200 / 200 Output Total 2865 / 3430 100 / 3530 305 / 305 Balance -1395 / -1510 550 / -960 -105 / -105 Weight last 48 hrs Weight 68.175 kg Weight 68.1 kg Weight 69.127 kg Weight 69.4 kg Physical Exam Const: COMMON NORMALS: no acute distress and alert Neuro: SENSORIUM/ORIENTATION: Yes alert Urinary Catheter Management: Finch: Cath Placed During This Visit: yes Reason for Continuing Indwelling Catheter: Accurate Measurement of Urinary Output in Critically Ill Patients Urinary Catheter Date of Insertion: 04/07/23 Urinary Catheter Time of Insertion: 09:50 Data 04/11/23 03:20 04/11/23 03:20 Other data: seen via telemedicine with assistance of RN at bedside A&P Assessment and plan (1) CKD stage 4 due to type 2 diabetes mellitus: Plan 1. ESRD. Hemodialysis initiated, via tunneled hemodialysis catheter, due to uremia, volume overload. Peritoneal dialysis catheter also placed. s/p 2 HD sessions. Next HD tomorrow 3.5h, 2L UF, 3K bath. He will continue HD T/Th/S as outpatient 2. Hypertension: Blood pressure controlled, discontinue prazosin and hydralazine and begin ARB. Change IV lasix to po 3. Anemia: Status post transfusion, Hb stable ANDREI ordered at HD Remove finch, check PVR. Stable for discharge when outpatient HD unit is confirmed. I provided instruction on how to care for HD and PD cath. - Instructed not to change dressing or get dressing wet. Attestations Medical Necessity Statement*: see above Time Spent in Patient Care: 16 - 35 minutes Coding Level of Care Code Acute Code for Chg Fwd Diagnoses CKD stage 4 due to type 2 diabetes mellitus E11.22; N18.4
[2023-04-11 10:44] LABS: Calcium 8.5 mg/dL (8.5-10.5)
[2023-04-11 10:45] LABS: Ferritin 637 ng/mL (30-400); Iron 48 ug/dL (59-158); Percent Saturation 20.2 % (20-50); Total Iron Binding Capacity 237 mcg/dl; Unsaturated Iron Binding 189 ug/dL (112-347)
[2023-04-11 10:51] LABS: Parathyroid Hormone 109.7 pg/mL (15-65)
[2023-04-11 11:01] LABS: 25 Hydroxy Vitamin D 54 ng/mL (30-100)
[2023-04-11] MEDS: insulin lispro 100 unit/1 mL SUBCUT ×3 (12:31→21:30)
--- NOTE | 2023-04-11 15:24 | P.PN_ITS ---
Subjective Subjective: Patient tolerating new dialysis well. He reports appetite is good. Per report, he did not sleep well; back and forth between chair and bed overnight. Otherwise denies new complaints. Spouse bedside and supportive. He was originally going to have labs drawn by Dr Aguilera around this time which included cbc, renal panel, pth, vitamin d level, and iron labs. Spouse inquired if it would be appropriate to have those done now to save him a stick later this week. Medications: Reviewed: Yes Vitals/I&O/Wt Last Vital Signs Temp 97.8 F 04/11/23 11:34 Pulse 70 04/11/23 11:34 Resp 25 H 04/11/23 11:34 BP 111/50 04/11/23 11:34 Pulse Ox 100 04/11/23 11:34 O2 Del Method Room Air 04/11/23 11:34 O2 Flow Rate 2 04/11/23 07:47 04/11/23 04/11/23 04/11/23 06:59 14:59 22:59 Intake Total 650 / 2570 440 / 440 Output Total 100 / 3530 305 / 305 Balance 550 / -960 135 / 135 Weight last 48 hrs Weight 68.175 kg Weight 68.1 kg Weight 69.127 kg Weight 69.4 kg Physical Exam Narrative: General: Patient is awake. Alert. Pleasant. Laying in bed. Head: Normocephalic. Atraumatic. EOM intact. Neck: No JVD. Cardiovascular: Normal S1 and S1. No gallops. No murmurs. Sternotomy scar. Lungs: Adequate air movement. No crackles or wheezes. On nasal canula support. Skin: No jaundice. No rashes. Spider angiomas. Abdomen: Normal bowel sounds, abdomen soft and nontender. Extremities: No cyanosis or clubbing. Musculoskeletal: No swollen or erythematous joints. Neurological: Moves all 4 extremities. No myoclonus. Urinary Catheter Management: Feng: Cath Placed During This Visit: yes Reason for Continuing Indwelling Catheter: Accurate Measurement of Urinary Output in Critically Ill Patients Urinary Catheter Date of Insertion: 04/07/23 Urinary Catheter Time of Insertion: 09:50 Data 04/11/23 03:20 04/11/23 03:20 A&P Assessment and plan (1) CKD stage 4 due to type 2 diabetes mellitus: MARCELO on CKD-V Outpt nephro is Dr Aguilera in [place] Status post HD and PD line placement by CELINA Nephro following, appreciate reccs and dialysis management Continue IV Lasix Feng for strict I&Os Iron labs, vitamin d, pth CM consulted, attempting to set up outpatient dialysis w/ [facility]; spouse has started the process and case management assisting, but offices are closed until Wednesday (2) Anemia, chronic renal failure: Anemia of CKD Status post 1 pRBC and venofer x1 since admission HGB goal of 8 Qualifiers: Chronic kidney disease stage: unspecified stage Qualified Code(s): N18.9 - Chronic kidney disease, unspecified; D63.1 - Anemia in chronic kidney disease (3) Elevated troponin: Cardiology following, appreciate recommendations Continue aspirin Continue statin Continue Imdur Continue BB (4) Weakness generalized: Debility and physical deconditioning Treat underlying renal disease Encourage OOB Therapy (5) Acute dyspnea: With chronic hypoxic respiratory failure Multifactorial, treat underlying pathologies as noted above (6) CHF (congestive heart failure): Acute on chronic decompensated combined HFrEF exacerbation Strict I&Os Daily weights Hold oral Bumex Lasix 100 mg IV BID Continue BB Appreciate cardiology input (7) Diabetes mellitus, type II: Continue Lantus at reduced home dose SSI, low scale Avoid hypoglycemia Qualifiers: Diabetes mellitus intermodal customer service insulin use: without intermodal customer service use Diabetes mellitus complication status: with hyperglycemia Qualified Code(s): E11.65 - Type 2 diabetes mellitus with hyperglycemia (8) CAD (coronary artery disease): Management as above Qualifiers: Coronary Disease-Associated Artery/Lesion type: bypass graft [place] vs. transplanted heart: [place] heart Associated angina: with unstable angina Qualified Code(s): I25.700 - Atherosclerosis of coronary artery bypass graft(s), unspecified, with unstable angina pectoris (9) Essential hypertension: Continue metoprolol Continue hydralazine (10) COPD (chronic obstructive pulmonary disease): Pulmicort DuoNebs PRN Qualifiers: Emphysema type: panlobular Plan DVT ppx: Heparin Code Status: Full Attestations Medical Necessity Statement*: Patient requires ongoing hospitalization for dialysis, serial labs, cardiology expertise, nephrology expertise, and initiation of outpatient dialysis. Coding Level of Care Code Acute Code for Chg Fwd Diagnoses CKD stage 4 due to type 2 diabetes mellitus E11.22; N18.4 Anemia, chronic renal failure N18.9; D63.1 Chronic kidney disease stage: unspecified stage Elevated troponin R77.8 Weakness generalized R53.1 Acute dyspnea R06.00 CHF (congestive heart failure) I50.9 Diabetes mellitus, type II E11.65 Diabetes mellitus intermodal customer service insulin use: without intermodal customer service use Diabetes mellitus complication status: with hyperglycemia CAD (coronary artery disease) I25.700 Coronary Disease-Associated Artery/Lesion type: bypass graft [place] vs. transplanted heart: [place] heart Associated angina: with unstable angina Essential hypertension I10 COPD (chronic obstructive pulmonary disease) J44.9 Emphysema type: panlobular
--- NOTE | 2023-04-11 20:00 | PC.NURSE ---
Earlier in shift patient and both stated Do Not Disturb at anytime during the night unless absolutely necessary.
--- NOTE | 2023-04-11 21:33 | PC.NURSE ---
pt refused accucheck, blood glucose 145 per dexcom
[2023-04-12] VITALS (7 sets, daily range): BP systolic 122–134; BP diastolic 53–64; PULSE 65–85; RESP 16–20; TEMP 36.5–36.6; O2SAT 97–100
[2023-04-12] MEDS: trazodone 50 mg Tablet PO (02:04)
[2023-04-12 04:21] LABS: Basophils % 0.3 %; Eosinophils # 0.5 10^3/uL (0.0-0.8); Eosinophils % 5.2 %; Hematocrit 31.9 % (37-53); Lymphocytes # 1.2 10^3/uL (0.8-4.8); Lymphocytes % 11.7 %; Mean Corpuscular HGB Conc 29.5 g/dL (30-55); Mean Corpuscular Hemoglobin 29.7 pg (27-33); Mean Corpuscular Volume 100.6 fl (82-101); Mean Platelet Volume 10.2 fL (7.4-10.4); Monocytes # 0.9 10^3/uL (0.2-0.9); Neutrophils # 7.51 10^3/uL (1.8-7.7); Neutrophils % 73.2 %; Nucleated Red Blood Cells % 0 %; Platelet Count 288 10^3/cmm (157-399); Red Blood Count 3.17 10^6/uL (3.85-5.65); Red Cell Distribution Width 17.9 % (12.1-15.1); White Blood Count 10.25 10^3/uL (3.29-11.43)
[2023-04-12 04:42] LABS: Albumin Level 2.8 g/dL (3.5-5.2); Anion Gap 16.4 (5-19); Blood Urea Nitrogen 53 mg/dL (8-23); Calcium 8.4 mg/dL (8.5-10.5); Carbon Dioxide 25 mmol/L (22-29); Chloride 103 mmol/L (98-107); Glomerular Filtration Rate 16.9 mL/min (90-130); Glucose 92 mg/dL (65-115); Phosphorus 3.5 mg/dL (2.5-4.5); Potassium 4.4 mmol/L (3.5-5.1); Sodium 140 mmol/L (136-145)
[2023-04-12] MEDS: aspirin 81 mg EC Tablet PO (05:22)
[2023-04-12] MEDS: budesonide 0.5 mg/2 mL Neb INHALATION (07:31)
[2023-04-12] MEDS: heparin, porcine 1,000 unit/mL INJ 10 mL 1000 UNIT IV (08:15)
--- NOTE | 2023-04-12 08:45 | PM.PN ---
Subjective Subjective: seen during dialysis, feels better each day. urinating without issue Medications: Medication Review Details: reports he takes metoclopramide for abdominal bloating. I suggested he revisit this with prescriber Vitals/I&O/Wt Last Vital Signs Temp 97.8 F 04/12/23 07:41 Pulse 72 04/12/23 07:41 Resp 18 04/12/23 07:41 BP 132/59 04/12/23 07:41 Pulse Ox 100 04/12/23 07:41 O2 Del Method Nasal Cannula 04/12/23 07:41 O2 Flow Rate 2 04/12/23 07:33 04/11/23 04/12/23 04/12/23 22:59 06:59 14:59 Intake Total 530 / 970 450 / 1420 100 / 100 Output Total 455 / 760 75 / 835 280 / 280 Balance 75 / 210 375 / 585 -180 / -180 Weight last 48 hrs Weight 69.4 kg Weight 68.175 kg Weight 68.1 kg Physical Exam HENMT: OTHER: tunneled right IJ HD catheter - RN reports no redness or drainage Extremity: NARRATIVE EXTREMITY EXAM: no edema Urinary Catheter Management: Feng: Cath Placed During This Visit: yes Reason for Continuing Indwelling Catheter: Accurate Measurement of Urinary Output in Critically Ill Patients Urinary Catheter Date of Insertion: 04/07/23 Urinary Catheter Time of Insertion: 09:50 Data 04/12/23 03:08 04/12/23 03:08 Other Labs: albumin 2.8, yoav Ca 9.4, phos 3.5 TSAT 20%, SF 637 Other data: seen via telemedicine with assistance of RN at bedside A&P Assessment and plan (1) CKD stage 4 due to type 2 diabetes mellitus: Plan 1. ESRD. Hemodialysis initiated, via tunneled hemodialysis catheter, due to uremia, volume overload. Peritoneal dialysis catheter also placed. s/p 2 HD sessions. HD today 3.5h, 2L UF, 3K bath. He will continue HD T//S as outpatient 2. Hypertension: Blood pressure controlled. Continue current medications. 3. Anemia: Status post transfusion, Hb stable ANDREI ordered at HD 4. Low serum albumin. Needs to increase protein intake. Stable for discharge when outpatient HD unit is confirmed. I provided instruction on how to care for HD and PD cath. - Instructed not to change dressing or get dressing wet. Attestations Medical Necessity Statement*: see above Time Spent in Patient Care: 16 - 35 minutes Coding Level of Care Code Acute Code for Chg Fwd Diagnoses CKD stage 4 due to type 2 diabetes mellitus E11.22; N18.4
--- NOTE | 2023-04-12 12:37 | PC.NURSE ---
TR=[id number] per GCM
[2023-04-12] MEDS: isosorbide mononitrate ER 30 mg Tablet PO (12:49)
[2023-04-12] MEDS: FUROsemide 40 mg Tablet 80 MG PO (12:49)
[2023-04-12] MEDS: atorvastatin 40 mg Tablet PO (12:49)
[2023-04-12] MEDS: multivitamin therapeutic Tablet 1 TAB PO (12:50)
[2023-04-12] MEDS: metoclopramide 10 mg Tablet PO (12:50)
[2023-04-12] MEDS: losartan 50 mg Tablet 100 MG PO (12:50)
[2023-04-12] MEDS: metoprolol tartrate 50 mg Tablet PO (12:50)
[2023-04-12] MEDS: insulin glargine 100 units/1 mL 10 UNIT SUBCUT (12:51)
[2023-04-12] MEDS: loratadine 10 mg Tablet PO (12:51)
[2023-04-12] MEDS: heparin 5,000 unit/mL INJ 1 mL 5000 UNIT SUBCUT (12:51)
[2023-04-12] MEDS: insulin lispro 100 unit/1 mL SUBCUT (12:51)
[2023-04-12] MEDS: allopurinol 100 mg Tablet PO (12:53)
--- NOTE | 2023-04-12 12:57 | P.DS_ITS ---
Discharge Providers Date of Admission: 04/08/23 14:44 Date of Discharge: April 12, 2023 Attending Provider at Admission: Dusty Charles MD Attending Provider at Discharge: Denis Alvarado MD Consults: Cardiology: Dr. Israel Surgery: Dr. Rene Nephrology: Telemetry nephrology Primary Care Provider: Donavan Clemons MD Diagnoses at Discharge Discharge Diagnosis (1) CKD stage 4 due to type 2 diabetes mellitus: Status: Acute (2) Anemia, chronic renal failure: Status: Acute Qualifiers: Chronic kidney disease stage: unspecified stage Qualified Code(s): N18.9 - Chronic kidney disease, unspecified; D63.1 - Anemia in chronic kidney disease (3) Weakness generalized: Status: Acute (4) Essential hypertension: Status: Acute (5) COPD (chronic obstructive pulmonary disease): Status: Acute Qualifiers: Emphysema type: panlobular (6) Diabetes mellitus, type II: Status: Acute Qualifiers: Diabetes mellitus complication status: with hyperglycemia 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 transplanted heart: [place] heart Qualified Code(s): I25.700 - Atherosclerosis of coronary artery bypass graft(s), unspecified, with unstable angina pectoris Permanent problem details: remote CABG, NSTEMI, Stents 07/2021 (8) CHF (congestive heart failure): Status: Acute Reason for Visit Reason for Visit: sob , weakness Brief History: History as per HPI: Luis Alfredo Thompson is a 68 year old male is a 68-year-old male with a past medical history significant for coronary artery disease with CABG, COPD with chronic hypoxic respiratory failure, type 2 diabetes mellitus, ischemic cardiomyopathy, chronic kidney disease stage IV, hypertension, and obstructive sleep apnea non- compliant with CPAP who presents to the emergency department with dyspnea and chest pain on exertion.? Spouse is bedside and supportive.? She provides most of the history with Luis Alfredo occasionally adding details.? She describes a progressive declined in functional status that began a few weeks ago that was accelerated after being taken off his water pills by ED provider.? She reports they ended up restarting the water pills.? She notes he has only had one dose of metolazone since that time.? Patient reports minimal exertion, even just a few steps, worsens symptoms causing significant shortness of breath, dyspnea, and chest discomfort.? Rest improves symptoms.? Endorses associated poor exercise tolerance. Spouse reports patient recently saw his revenue settlements administrator, Dr Israel.? She states he wants Luis Alfredo to have a stress test done. Spouse states Luis Alfredo is following with Dr Aguilera, ticket marker out of [place].? They have plans to start dialysis soon.? They have an appointment to discuss the initiation of dialysis further on April 13.? They seem unsure of the modality and further details.? She does note an interest in possible home dialysis options.? He denies having a fistula or dialysis line.? She states Dr Aguilera office faxed a request to Dr Huynh office regarding an infusion she would like patient started on.? Spouse does not currently recall the name of the medication.? Hospital Course Hospital Course Patient was admitted to the hospital for further evaluation and management of shortness of breath with concerns for congestive heart failure in setting of MARCELO on CKD with uremia along with anemia, generalized weakness. On admission he was found to have elevated troponins which were thought to be secondary to type II FL from congestive heart failure in setting of MARCELO on CKD. Cardiology was consulted who advised medical management in setting of demand ischemia. Nephrology and surgery were consulted. Nephrology recommended patient to have hemodialysis in setting of worsening renal function and symptomatic congestive heart failure. He underwent permacath placement and peritoneal dialysis catheter placement on 04/09. He tolerated the procedure well. During hospitalization new hemodialysis was started which she tolerated well. He was found to have high blood pressures for which his home antihypertensives were adjusted. Patient has a chair time with dialysis center on Wednesday, and Wednesday. He has been discharged in hemodynamically stable condition on adjusted antihypertensives with new chair time. He is to follow-up with his primary care provider onsite appointment and follow- up with outpatient dialysis as scheduled. Physical Exam Narrative: General: Patient is awake. Alert. Pleasant. Laying in bed. Head: Normocephalic. Atraumatic. EOM intact. Neck: No JVD. Cardiovascular: Normal S1 and S1. No gallops. No murmurs. Sternotomy scar. Lungs: Adequate air movement. No crackles or wheezes. On nasal canula support. Skin: No jaundice. No rashes. Spider angiomas. Abdomen: Normal bowel sounds, abdomen soft and nontender. Extremities: No cyanosis or clubbing. Musculoskeletal: No swollen or erythematous joints. Neurological: Moves all 4 extremities. No myoclonus. Urinary Catheter Management: Feng: Cath Placed During This Visit: yes Reason for Continuing Indwelling Catheter: Accurate Measurement of Urinary Output in Critically Ill Patients Urinary Catheter Date of Insertion: 04/07/23 Urinary Catheter Time of Insertion: 09:50 Discharge Data Studies Completed and Pending Completed Studies During Hospitalization Category Date Time Status CXRP [XR chest 1V portable [id number]] Routine Exams 04/09/23 12:14 Completed XR chest 1V portable [id number] Stat Exams 04/07/23 13:09 Completed Pending at discharge Category Date Time Status C-arm FL for CVA [id number] Routine Exams 04/09/23 12:05 Taken Laboratory Results WBC 10.25 10^3/uL (3.29-11.43) 04/12/23 03:08 RBC 3.17 10^6/uL (3.85-5.65) L 04/12/23 03:08 Hgb 9.40 g/dL (11.27-16.99) L 04/12/23 03:08 Hct 31.9 % (37-53) L 04/12/23 03:08 MCV 100.6 fl (82-101) 04/12/23 03:08 MCH 29.7 pg (27-33) 04/12/23 03:08 MCHC 29.5 g/dL (30-55) L 04/12/23 03:08 RDW 17.9 % (12.1-15.1) H 04/12/23 03:08 Plt Count 288 10^3/cmm (157-399) 04/12/23 03:08 MPV 10.2 fL (7.4-10.4) 04/12/23 03:08 Neut % (Auto) 73.2 % 04/12/23 03:08 Lymph % (Auto) 11.7 % 04/12/23 03:08 [place] % (Auto) 9.0 % 04/12/23 03:08 Eos % (Auto) 5.2 % 04/12/23 03:08 Baso % (Auto) 0.3 % 04/12/23 03:08 Neut # (Auto) 7.51 10^3/uL (1.8-7.7) 04/12/23 03:08 Lymph # (Auto) 1.2 10^3/uL (0.8-4.8) 04/12/23 03:08 [place] # (Auto) 0.9 10^3/uL (0.2-0.9) 04/12/23 03:08 Eos # (Auto) 0.5 10^3/uL (0.0-0.8) 04/12/23 03:08 Baso # (Auto) 0.0 10^3/uL (0.0-0.1) 04/12/23 03:08 Nucleated RBC % (auto) 0 % 04/12/23 03:08 Nucleated RBCs # 0.0 /100WBC 04/12/23 03:08 Sodium 140 mmol/L (136-145) 04/12/23 03:08 Potassium 4.4 mmol/L (3.5-5.1) 04/12/23 03:08 Chloride 103 mmol/L (98-107) 04/12/23 03:08 Carbon Dioxide 25 mmol/L (22-29) 04/12/23 03:08 Anion Gap 16.4 (5-19) 04/12/23 03:08 BUN 53 mg/dL (8-23) H 04/12/23 03:08 Creatinine 3.6 mg/dL (0.7-1.2) H 04/12/23 03:08 GFR Calculation 16.9 mL/min (90-130) L 04/12/23 03:08 Glucose 92 mg/dL (65-115) 04/12/23 03:08 POC Glucose 136 mg/dL (70-110) H 04/11/23 06:22 Calculated Osmolality 333 mOsm/kg (285-295) H 04/08/23 04:40 Calcium 8.4 mg/dL (8.5-10.5) L 04/12/23 03:08 Phosphorus 3.5 mg/dL (2.5-4.5) 04/12/23 03:08 Magnesium 2.2 mg/dL (1.7-2.3) 04/10/23 03:46 Iron 48 ug/dL (59-158) L 04/11/23 03:20 TIBC 237 mcg/dl 04/11/23 03:20 % Saturation 20.2 % (20-50) 04/11/23 03:20 Unsat Iron Binding 189 ug/dL (112-347) 04/11/23 03:20 Ferritin 637 ng/mL (30-400) H 04/11/23 03:20 Total Bilirubin 0.4 mg/dL (0.15-1.2) 04/08/23 04:40 AST 20 U/L (0-40) 04/08/23 04:40 ALT 26 U/L (0-41) 04/08/23 04:40 Alkaline Phosphatase 106 U/L (40-130) 04/08/23 04:40 Troponin T Baseline 253 ng/L (0-15) H* 04/07/23 13:10 Troponin T 120 Minute 248.9 ng/L (0-15) H 04/07/23 15:17 Delta Troponin T -4.1 ABS# (0-10) L 04/07/23 15:17 Troponin T Hi Sens 6Hr 250.6 ng/L (0-15) H 04/07/23 18:45 Troponin T Hi Sens 6Hr Delta -2.4 ng/L (0-12) L 04/07/23 18:45 NT-Pro-B Natriuret Pep 56145 pg/mL (0-125) H 04/07/23 13:10 Total Protein 6.3 g/dL (6.6-8.7) L 04/08/23 04:40 Albumin 2.8 g/dL (3.5-5.2) L 04/12/23 03:08 Globulin 3.0 g/dL (1.3-4.6) 04/08/23 04:40 25-OH Vitamin D Total 54 ng/mL (30-100) 04/11/23 03:20 Procalcitonin 0.11 ng/mL (0-0.5) 04/07/23 15:17 PTH Intact 109.7 pg/mL (15-65) H 04/11/23 03:20 Calcium (PTH Intact) 8.5 mg/dL (8.5-10.5) 04/11/23 03:20 Urine Color Yellow (Yellow) 04/07/23 15:57 Urine Appearance Clear (CLEAR) 04/07/23 15:57 Urine pH 5 (5-7) 04/07/23 15:57 Ur Specific [place] 1.010 (1.005-1.030) 04/07/23 15:57 Urine Protein Neg (Negative) 04/07/23 15:57 Urine Glucose (UA) Norm (Normal) 04/07/23 15:57 Urine Ketones Negative (Negative) 04/07/23 15:57 Urine Blood Neg (Negative) 04/07/23 15:57 Urine Nitrate Negative (Negative) 04/07/23 15:57 Urine Bilirubin Neg (Negative) 04/07/23 15:57 Urine Urobilinogen Norm mg/dL (Negative) 04/07/23 15:57 Ur Leukocyte Esterase Negative (Negative) 04/07/23 15:57 Hep Bs Antigen Non-reactive (Nonreactive) 04/08/23 23:05 Hep Bs Antibody 3.5 (11.5-1000) L 04/08/23 23:05 Blood Type A Positive 04/07/23 18:45 Rho(D) Type Positive 04/07/23 18:45 Antibody Screen Negative 04/07/23 18:45 Crossmatch See Detail 04/07/23 18:45 Procedures Performed 04/09: Permacath placement and laparoscopic peritoneal dialysis catheter placement Implants: Permacath and peritoneal dialysis catheter Vitals Last Vital Signs Temp 97.8 F 04/12/23 07:41 Pulse 72 04/12/23 07:41 Resp 18 04/12/23 07:41 BP 132/59 04/12/23 07:41 Pulse Ox 100 04/12/23 07:41 O2 Del Method Nasal Cannula 04/12/23 07:41 O2 Flow Rate 2 04/12/23 07:33 Discharge Plan Discharge Patient Disposition: Home Condition: Stable Prescriptions: New losartan 50 mg Tablet 50 mg PO DAILY Qty: 30 0RF Continued ascorbic acid (vitamin C) [Vitamin C] 500 mg tablet 500 mg PO QAM Qty: 100 5RF Rx Instructions: 340 B medications aspirin 81 mg tablet,delayed release (DR/EC) 81 mg PO QAM 90 Days Qty: 90 3RF Rx Instructions: 340 B medications vitamin E 400 unit capsule 400 unit PO QAM Qty: 90 3RF Rx Instructions: 340 B medications (DME) One touch test strips 100 See Rx Instructions .Route .MEDSUPPLY Qty: 3 5RF Rx Instructions: As directed Glucose testing strips three times daily on Insulin vitamin B complex Tablet 1 tab PO DAILY Stool Softener 50 mg capsule 100 mg PO BID EyeProtect [id number] myat-df-hpmt tablet 1 tab PO DAILY metoprolol tartrate 50 mg tablet 50 mg PO BID allopurinol 100 mg tablet 100 mg PO DAILY 30 Days Qty: 30 5RF Hold Instructions: Resume on 11/09/22. ferrous sulfate [FeroSul] 325 mg (65 mg iron) tablet 325 mg PO DAILY isosorbide mononitrate 30 mg tablet extended release 24 hr 30 mg PO BID 90 Days Qty: 180 1RF Rx Instructions: 340 B medications bumetanide 1 mg tablet 1 mg PO Q12H Qty: 60 5RF Hold Instructions: Resume on 11/09/22. Rx Instructions: 340 B medications (DME) Dexcom G6 Hadoop Application Developer Misc See Rx Instructions .ROUTE .MEDSUPPLY Qty: 1 3RF Rx Instructions: change every 90 days (DME) Dexcom G6 Sensor Device See Rx Instructions .ROUTE .MEDSUPPLY Qty: 9 3RF Rx Instructions: change every 10 days (DME) Dexcom G6 Transmitter Device See Rx Instructions .ROUTE .MEDSUPPLY Qty: 1 3RF Rx Instructions: change every 3 months (DME) FreeStyle Elli 2 Sensor Kit See Rx Instructions .ROUTE .MEDSUPPLY Qty: 6 2RF Rx Instructions: change every 14 days (DME) FreeStyle Elli 2 [place] Misc See Rx Instructions .Route Qty: 1 0RF Rx Instructions: As directed Symbicort 80-4.5 mcg/actuation HFA aerosol inhaler 2 inh inhalation BID 30 Days Qty: 10.2 5RF Rx Instructions: 340 B medications tramadol 50 mg tablet 50 mg PO Q8H PRN (Reason: pain) 15 Days Qty: 45 1RF nitroglycerin [Nitrostat] 0.4 mg tablet, sublingual 0.4 mg sublingual Q5M PRN (Reason: chest pain) Qty: 25 3RF Rx Instructions: do not exceed 3 doses per episode 340 B medications pantoprazole 40 mg tablet,delayed release (DR/EC) 40 mg PO BID Qty: 60 5RF metoclopramide HCl 10 mg tablet 10 mg PO TID Qty: 90 2RF loratadine 10 mg Tablet 10 mg PO DAILY simethicone 250 mg capsule 250 mg PO TID PRN (Reason: Gastrointestinal Spasms Or Cramping) triamcinolone acetonide 0.025 % cream 1 applic topical DAILY PRN (Reason: Rash) insulin aspart U-100 [Novolog FlexPen U-100 Insulin] 100 unit/mL (3 mL) insulin pen See Rx Instructions .ROUTE .COMPLEX Rx Instructions: sliding scale- max of 45 units insulin glargine [Lantus Solostar U-100 Insulin] 100 unit/mL (3 mL) insulin pen 13 unit SUBCUT DAILY cholecalciferol (vitamin D3) [Vitamin D3] 50 mcg (2,000 unit) Capsule 100 mcg PO DAILY Changed atorvastatin 40 mg tablet 40 mg PO DAILY Qty: 60 2RF metolazone 2.5 mg tablet 2.5 mg PO EVERY OTHER DAY Qty: 15 0RF Patient Comments: tuesdays and fridays Discontinued Klor-Con M20 20 mEq tablet,ER particles/crystals See Rx Instructions .ROUTE .COMPLEX Rx Instructions: 20 mEq orally ;1 tab daily. Take 2 tabs and Wednesday hydralazine 50 mg tablet 50 mg PO BID Qty: 180 1RF prazosin 1 mg capsule 1 mg PO BID Discharge Orders: Discharge Order (Routine); Ordered 04/12/23 Ordered By: Denis Alvarado Referrals: Bekah [Other] - 04/13/23 1:20 pm (, and Sat at 120PM. Arrive 30 minutes prior) Donavan Clemons MD [Primary Care Provider] - (We have notified your physician's clinic of the need for a follow-up appointment to be scheduled. If you have not heard from them within the next 2 business days, please call them directly. You may also reach out to our training manager at [phone] and she can assist you.) Discharge Diet: As Directed Discharge Activity: Resume usual activity and Increase activity as tolerated Patient Instructions: Losartan (By mouth) (Cozaar), Heart Failure (DC), End Stage Kidney Disease (DC), CHF Stoplight, COPD Stoplight, Opioid Safety Activity Restrictions/Additional Instructions: Follow-up with a primary care provider within next 2 weeks. Follow-up with dialysis center for scheduled dialysis as directed. Multiple medication changes have been done. For now do not take hydralazine and prazosin as before. Do not take potassium supplements as before. Dose of atorvastatin has been changed to 40 mg daily. Take metolazone 2.5 mg every other day along with Bumex 1 mg twice daily. Losartan 50 mg daily has been added to her medication list. Take Imdur as before. Restrict fluid intake to less than 1500 cc a day. Discharge Attestations Time Spent in Discharge Care*: greater than 30 min Specific Discharge Activities: educating patient, educating and/or supporting family/caregiver, discussing with pcp/other providers, discussing with family caseworker/social workers/dc planners, documenting/other paperwork and evaluating patient/reviewing data Status at Discharge: Cognitive status at discharge: cognitively intact , Behavioral status at discharge: cooperative , Functional status at discharge: uses cane/walker , Overall status at discharge: patient is progressing back to baseline Quality Metrics Clinical Quality Measures [ No reported AMI, CVA or VTE this stay] Coding Level of Care Code 11020 Total time (in minutes) for Discharge: 50 Diagnoses CKD stage 4 due to type 2 diabetes mellitus E11.22; N18.4 Anemia, chronic renal failure N18.9; D63.1 Chronic kidney disease stage: unspecified stage Weakness generalized R53.1 Essential hypertension I10 COPD (chronic obstructive pulmonary disease) J44.9 Emphysema type: panlobular Diabetes mellitus, type II E11.65 Diabetes mellitus complication status: with hyperglycemia Diabetes mellitus senior care insulin use: without senior care use CAD (coronary artery disease) I25.700 Associated angina: with unstable angina Coronary Disease-Associated Artery/Lesion type: bypass graft [place] vs. transplanted heart: [place] heart CHF (congestive heart failure) I50.9
--- NOTE | 2023-04-12 15:27 | PC.NURSE ---
Discharge Note Patient discharged to [home] via [w/c to POV] accompanied by [spouse]. Discharge instructions reviewed with patient and/or benefits representative. Mobile pharmacy medications and/or prescriptions provided. Belongings/home medications returned.
== END 2023-04-12 15:10 | disposition home or self-care (01) | DRG 698 ==
LOC: ER 15:46 → CSU 04-08 07:04
PROVIDERS: Hospitalist; Surgery; Admitting Provider Internal Medicine; Emergency Provider Emergency Medicine; PCP Family Medicine Adult Medicine; Visit Provider Student in an Organized Health Care Education/Training Program
PROC: 0JH63XZ Insertion of Tunneled Vascular Access Device into Chest Subcutaneous Tissue and Fascia, Percutaneous Approach (ICD-10-PCS; principal; 2023-04-09 13:55)
PROC: 0WHG43Z Insertion of Infusion Device into Peritoneal Cavity, Percutaneous Endoscopic Approach (ICD-10-PCS; CPT 49324; 2023-04-09 13:55)
DX: E11.22 Type 2 diabetes mellitus with diabetic chronic kidney disease (principal); I50.43 Acute on chronic combined systolic (congestive) and diastolic (congestive) heart failure; I13.0 Hypertensive heart and chronic kidney disease with heart failure and stage 1 through stage 4 chronic kidney disease, or unspecified chronic kidney disease; J96.11 Chronic respiratory failure with hypoxia; I24.8 Other forms of acute ischemic heart disease; N18.4 Chronic kidney disease, stage 4 (severe); N17.9 Acute kidney failure, unspecified; E11.65 Type 2 diabetes mellitus with hyperglycemia; I25.10 Atherosclerotic heart disease of native coronary artery without angina pectoris; Z95.1 Presence of aortocoronary bypass graft; Z95.5 Presence of coronary angioplasty implant and graft; J43.1 Panlobular emphysema; I25.5 Ischemic cardiomyopathy; G47.33 Obstructive sleep apnea (adult) (pediatric); Z91.199 Patient's noncompliance with other medical treatment and regimen due to unspecified reason; E78.2 Mixed hyperlipidemia; E78.00 Pure hypercholesterolemia, unspecified; M10.9 Gout, unspecified; D63.1 Anemia in chronic kidney disease; I25.2 Old myocardial infarction; Z79.4 Long term (current) use of insulin; Z79.891 Long term (current) use of opiate analgesic; Z79.82 Long term (current) use of aspirin
CPT/HCPCS: 36415; 36416; 36430; 51702; 71045; 76000; 77001; 80053; 80069; 81003; 82306; 82310; 82728; 82962; 83540; 83550; 83735; 83880; 83970; 84100; 84145; 84484; 85025; 86706; 86850; 86900; 86920; 87340; 90935; 93005; 94640; 96372; 96376; 97110; 97161; C1750; G0378; J1100; J1644; J1756; J1815; J1940; J2405; J2704; J2710; J3010; J3370; J3490; J7030; J7626; J8597; P9016; Q0163; Q3014

== ENCOUNTER 2023-04-09 10:04 | Outpatient (RCR) | payer SELFPAY | END 2023-05-08 23:59 | disposition home or self-care (01) | LOC: CR 10:04 | PROVIDERS: PCP Family Medicine Adult Medicine; Referring Provider Internal Medicine; Visit Provider Internal Medicine | DX: Z95.5 Presence of coronary angioplasty implant and graft (principal) ==

== ENCOUNTER → 2023-04-27 11:30 | Outpatient (BNVA) | payer MEDICARE, SELFPAY | PROVIDERS: PCP Family Medicine Adult Medicine; Visit Provider Internal Medicine | DX: E11.22 Type 2 diabetes mellitus with diabetic chronic kidney disease (principal); N18.9 Chronic kidney disease, unspecified; E11.65 Type 2 diabetes mellitus with hyperglycemia; E78.2 Mixed hyperlipidemia; Z79.4 Long term (current) use of insulin | CPT/HCPCS: 95251; 99214 ==

== ENCOUNTER → 2023-04-28 13:03 | Outpatient (BNVA) | payer MEDICARE, SELFPAY | PROVIDERS: PCP Family Medicine Adult Medicine; Visit Provider Surgery | DX: N18.6 End stage renal disease (principal) | CPT/HCPCS: 99024 ==

== ENCOUNTER 2023-05-01 12:09 | Emergency (ER) | payer MEDICARE, SELFPAY ==
--- NOTE | 2023-05-01 12:14 | ECG_ITS ---
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 Measurements Intervals [place] Rate: 74 P: 96 IL: 200 QRS: -46 QRSD: 118 T: 108 QT: 415 QTc: 463 Interpretive Statements SINUS RHYTHM WITH FREQUENT VENTRICULAR PREMATURE COMPLEXES IN A BIGEMINAL PATTERN LEFT ANTERIOR FASCICULAR BLOCK [QRS AXIS <= -45, QR IN I, RS IN II] ST DEVIATION AND MODERATE T-WAVE ABNORMALITY, CONSIDER LATERAL ISCHEMIA [-0.1+ mV T-WAVE IN I/aVL/V5/V6] Compared to ECG 04/07/2023 14:59:45 Left anterior fascicular block now present T-wave abnormality now present Possible ischemia now present Left-axis deviation no longer present Intraventricular conduction delay no longer present Electronically Signed On 05-01-2023 20:30:40 CDT by Francis Israel M.D. [email or web address]
[2023-05-01 12:20] VITALS: BP 172/52; PULSE 72; RESP 17; TEMP 36.9; O2SAT 100; BMI 25.0
[2023-05-01 12:40] VITALS: BP 137/49; PULSE 70; RESP 30; O2SAT 100
--- NOTE | 2023-05-01 12:41 | W.ED.ARRPALP ---
HPI - Arrhythmia/Palpitations General: Chief Complaint: Arrhythmia/Palpitations Stated Complaint: BRADYCARDIA Time Seen by Provider: 05/01/23 12:10 Source: patient Mode of arrival: EMS History of Present Illness: 68-year-old male presents emergency room from dialysis. He was having bradycardia there. He completed approximately half of his dialysis run he was reported to have heart rate in the 40s in route but going documentation of he was given atropine. His and his heart rate when he arrived here was in the 60s and 70s he did have some bigeminy he otherwise feels fine denies any pain or difficulty any shortness of breath chest comfort no abdominal discomfort. He is currently getting hemodialysis they are planning to converting him to peritoneal dialysis once his peritoneal dialysis catheter has matured some. He is on metoprolol 50 mg twice daily. MD complaint: palpitations Associated symptoms: Deny anxiety, cough, diaphoresis, muscle cramps, nausea, paresthesias, pre-syncope, sense of impending doom, short of breath, syncope or vomiting Review of Systems Const: Denies: fever(s), chills or diaphoresis ENMT: Denies: throat pain, ear or mastoid pain, nasal discharge or nasal congestion Card: Reports: palpitations; Denies: chest pain, syncope or pre-syncope Resp: Denies: dyspnea, productive cough or non-productive cough GI: Denies: abdominal pain, nausea or vomiting : Denies: flank pain, dysuria, urinary frequency or urinary urgency Musc: Denies: muscle cramps Skin/Breast: Denies: rash or pruritus Psych: Denies: anxiety PFSH ED PFSH: Medical History Acute non-ST segment elevation myocardial infarction (NSTEMI) following previous myocardial infarction Allergic rhinitis due to allergen Anemia, chronic renal failure CAD (coronary artery disease) remote CABG, NSTEMI, Stents 07/2021 CHF (congestive heart failure) Chronic GERD COPD (chronic obstructive pulmonary disease) Current non-smoker Quit 06/28/2021 after 57 years at 1.5 packs/day Diabetes mellitus, type II Essential hypertension Gout Hyperlipemia, mixed Ischemic cardiomyopathy ORA on CPAP Requires peritoneal dialysis Surgical History History of appendectomy History of coronary artery stent placement Hx of CABG Family History Father Cancer Mother Diabetes Heart attack Social History Smoking and tobacco status: former smoker Quit status (tobacco): has quit using tobacco Year quit tobacco: June 2021 Former quit date comment: 1.5ppd x 57years Alcohol intake: current Alcohol intake frequency: holidays/special occasions only Alcohol type: beer Substance/Drug Use: never Desire information about substance/drug rehabilitation?: No Caregiver/support person: No Lives independently: Yes Household members: spouse Marital status: Number of children: 2 service: No Current occupational status: retired and disabled Do you think of yourself as: Straight/Heterosexual Current gender identity: Male Physical Exam Const: GENERAL APPEARANCE: cooperative and comfortable ORIENTATION/CONSCIOUSNESS: Yes awake, Yes oriented to person, Yes oriented to place and Yes oriented to time HENMT: COMMON NORMALS: normocephalic, atraumatic and hearing grossly normal bilaterally HEAD & SCALP: normocephalic and atraumatic Resp: COMMON NORMALS: normal respiratory effort, No retractions, No use of accessory muscles and clear to auscultation bilaterally AUSCULTATION: clear to auscultation bilaterally Cardio: COMMON NORMALS: regular rhythm and No murmurs present (Cardio) RATE: bradycardic RHYTHM: regular rhythm GI: COMMON NORMALS: Soft to palpation and No hepatosplenomegaly present AUSCULTATION: Yes normoactive bowel sounds PALPATION: Yes Soft to palpation, No Tenderness to palpation present (GI), No Guarding due to palpation present (GI) and Yes No hepatosplenomegaly present Extremity: COMMON NORMALS: normal to inspection, capillary refill normal, no clubbing, cyanosis or edema, no calf tenderness and no pedal edema Neuro: SENSORIUM/ORIENTATION: Yes oriented to person, Yes oriented to place and Yes oriented to time Skin: COMMON NORMALS: no rashes or lesions noted GENERAL SKIN EXAM: no rashes or lesions noted Course Vital Signs: Vital signs: Vital Signs Temperature 98.5 F 05/01/23 12:20 Pulse Rate 70 05/01/23 14:56 Respiratory Rate 25 H 05/01/23 14:56 Blood Pressure 134/46 05/01/23 14:56 Pulse Oximetry 100 05/01/23 14:56 Oxygen Delivery Me thod Nasal Cannula 05/01/23 12:40 Oxygen Flow Rate 2.5 05/01/23 12:40 MDM - Arrhythmia/Palpitations Medical Decision Making Labs and imaging reviewed. No significant findings patient is feeling fine at this point. He is asymptomatic he has not had no recurrence of his bradycardia we will decrease his metoprolol to 25 twice daily continue his other medications recheck with his doctor next week. Noted on the chest x-ray radiology felt there is potentially some atelectasis or infiltrate. Based on his clinical symptoms this time I believe that is likely atelectasis and not evidence of an acute pneumonia. Medical Records I reviewed the patient's medical records. Lab Data I reviewed the patient's lab results. 05/01/23 12:27 05/01/23 12:27 Radiology Impressions Chest X-Ray 05/01/23 12:48 IMPRESSION: Questionable small stringy area of infiltrate or atelectasis in the left base/retrocardiac region. Clinical correlation is needed. Laboratory Results WBC 9.65 10^3/uL (3.29-11.43) 05/01/23 12:27 RBC 3.64 10^6/uL (3.85-5.65) L 05/01/23 12:27 Hgb 10.80 g/dL (11.27-16.99) L 05/01/23 12:27 Hct 35.3 % (37-53) L 05/01/23 12:27 MCV 97.0 fl (82-101) 05/01/23 12:27 MCH 29.7 pg (27-33) 05/01/23 12:27 MCHC 30.6 g/dL (30-55) 05/01/23 12:27 RDW 14.6 % (12.1-15.1) 05/01/23 12:27 Plt Count 285 10^3/cmm (157-399) 05/01/23 12:27 MPV 9.9 fL (7.4-10.4) 05/01/23 12:27 Neut % (Auto) 72.6 % 05/01/23 12:27 Lymph % (Auto) 14.9 % 05/01/23 12:27 [place] % (Auto) 7.2 % 05/01/23 12:27 Eos % (Auto) 4.2 % 05/01/23 12:27 Baso % (Auto) 0.5 % 05/01/23 12: Neut # (Auto) 7.00 10^3/uL (1.8-7.7) 05/01/23 12: Lymph # (Auto) 1.4 10^3/uL (0.8-4.8) 05/01/23 12: [place] # (Auto) 0.7 10^3/uL (0.2-0.9) 05/01/23 12: Eos # (Auto) 0.4 10^3/uL (0.0-0.8) 05/01/23 12: Baso # (Auto) 0.1 10^3/uL (0.0-0.1) 05/01/23 12: Nucleated RBC % (auto) 0 % 05/01/23 12: Nucleated RBCs # 0.0 /100WBC 05/01/23 12:27 Sodium 138 mmol/L (136-145) 05/01/23 12:27 Potassium 4.3 mmol/L (3.5-5.1) 05/01/23 12: Chloride 96 mmol/L (98-107) L 05/01/23 12: Carbon Dioxide 33 mmol/L (22-29) H 05/01/23 12:27 Anion Gap 13.3 (5-19) 05/01/23 12:27 BUN 19 mg/dL (8-23) 05/01/23 12:27 Creatinine 2.4 mg/dL (0.7-1.2) H 05/01/23 12:27 GFR Calculation 27.0 mL/min (90-130) L 05/01/23 12:27 Glucose 141 mg/dL (65-115) H 05/01/23 12:27 Calculated Osmolality 291 mOsm/kg (285-295) 05/01/23 12:27 Calcium 8.8 mg/dL (8.5-10.5) 05/01/23 12:27 Total Bilirubin 0.4 mg/dL (0.15-1.2) 05/01/23 12:27 AST 21 U/L (0-40) 05/01/23 12:27 ALT 20 U/L (0-41) 05/01/23 12:27 Alkaline Phosphatase 112 U/L (40-130) 05/01/23 12:27 Total Protein 6.9 g/dL (6.6-8.7) 05/01/23 12:27 Albumin 3.9 g/dL (3.5-5.2) 05/01/23 12:27 Globulin 3.0 g/dL (1.3-4.6) 05/01/23 12:27 All radiology interpretation(s) finalized by discharge Discharge Plan Discharge Patient Disposition: Home Clinical Impression: Bradycardia, End-stage renal disease (ESRD), Drug side effects Condition: Stable Prescriptions: Changed metoprolol tartrate 50 mg tablet 25 mg PO BID Qty: 15 0RF No Action ascorbic acid (vitamin C) [Vitamin C] 500 mg tablet 500 mg PO QAM Qty: 100 5RF Rx Instructions: 340 B medications aspirin 81 mg tablet,delayed release (DR/EC) 81 mg PO QAM 90 Days Qty: 90 3RF Rx Instructions: 340 B medications vitamin E 400 unit capsule 400 unit PO QAM Qty: 90 3RF Rx Instructions: 340 B medications (DME) One touch test strips 100 See Rx Instructions .Route .MEDSUPPLY Qty: 3 5RF Rx Instructions: As directed Glucose testing strips three times daily on Insulin vitamin B complex Tablet 1 tab PO DAILY Stool Softener 50 mg capsule 100 mg PO BID EyeProtect [id number] [id number] tablet 1 tab PO DAILY allopurinol 100 mg tablet 100 mg PO DAILY 30 Days Qty: 30 5RF Hold Instructions: Resume on 11/09/22. ferrous sulfate [FeroSul] 325 mg (65 mg iron) tablet 325 mg PO DAILY isosorbide mononitrate 30 mg tablet extended release 24 hr 30 mg PO BID 90 Days Qty: 180 1RF Rx Instructions: 340 B medications bumetanide 1 mg tablet 1 mg PO Q12H Qty: 60 5RF Hold Instructions: Resume on 11/09/22. Rx Instructions: 340 B medications (DME) Dexcom G6 Octave Board As[employer]er Misc See Rx Instructions .ROUTE .MEDSUPPLY Qty: 1 3RF Rx Instructions: change every 90 days (DME) Dexcom G6 Sensor Device See Rx Instructions .ROUTE .MEDSUPPLY Qty: 9 3RF Rx Instructions: change every 10 days (DME) Dexcom G6 Transmitter Device See Rx Instructions .ROUTE .MEDSUPPLY Qty: 1 3RF Rx Instructions: change every 3 months (DME) FreeStyle Elli 2 Sensor Kit See Rx Instructions .ROUTE .MEDSUPPLY Qty: 6 2RF Rx Instructions: change every 14 days (DME) FreeStyle Elli 2 [place] Misc See Rx Instructions .Route Qty: 1 0RF Rx Instructions: As directed Symbicort 80-4.5 mcg/actuation HFA aerosol inhaler 2 inh inhalation BID 30 Days Qty: 10.2 5RF Rx Instructions: 340 B medications tramadol 50 mg tablet 50 mg PO Q8H PRN (Reason: pain) 15 Days Qty: 45 1RF nitroglycerin [Nitrostat] 0.4 mg tablet, sublingual 0.4 mg sublingual Q5M PRN (Reason: chest pain) Qty: 25 3RF Rx Instructions: do not exceed 3 doses per episode 340 B medications pantoprazole 40 mg tablet,delayed release (DR/EC) 40 mg PO BID Qty: 60 5RF losartan 50 mg Tablet 50 mg PO DAILY Qty: 30 0RF metolazone 2.5 mg tablet 2.5 mg PO EVERY OTHER DAY Qty: 15 0RF Patient Comments: tuesdays and fridays atorvastatin 40 mg tablet 40 mg PO DAILY Qty: 60 2RF loratadine 10 mg Tablet 10 mg PO DAILY simethicone 250 mg capsule 250 mg PO TID PRN (Reason: Gastrointestinal Spasms Or Cramping) triamcinolone acetonide 0.025 % cream 1 applic topical DAILY PRN (Reason: Rash) insulin aspart U-100 [Novolog FlexPen U-100 Insulin] 100 unit/mL (3 mL) insulin pen See Rx Instructions .ROUTE .COMPLEX Rx Instructions: sliding scale- max of 45 units insulin glargine [Lantus Solostar U-100 Insulin] 100 unit/mL (3 mL) insulin pen 13 unit SUBCUT DAILY cholecalciferol (vitamin D3) [Vitamin D3] 50 mcg (2,000 unit) Capsule 100 mcg PO DAILY Discharge Orders: Discharge ED (Routine); Ordered 05/01/23 Ordered By: Brian Fallon Referrals: Donavan Clemons MD [Primary Care Provider] - Discharge Diet: Usual diet Discharge Activity: Increase activity as tolerated Patient Instructions: Opioid Safety, Pain Management Activity Restrictions/Additional Instructions: Decrease metoprolol to 25 p.o. twice daily. Recheck with your doctor next week. Return if you have further problems. Coding Level of Care Code ED Nuclear Operations Specialist for Hong Cunningham
[2023-05-01 12:43] LABS: Basophils # 0.1 10^3/uL (0.0-0.1); Basophils % 0.5 %; Eosinophils # 0.4 10^3/uL (0.0-0.8); Eosinophils % 4.2 %; Hematocrit 35.3 % (37-53); Lymphocytes # 1.4 10^3/uL (0.8-4.8); Lymphocytes % 14.9 %; Mean Corpuscular HGB Conc 30.6 g/dL (30-55); Mean Corpuscular Hemoglobin 29.7 pg (27-33); Mean Platelet Volume 9.9 fL (7.4-10.4); Monocytes # 0.7 10^3/uL (0.2-0.9); Monocytes % 7.2 %; Neutrophils % 72.6 %; Nucleated Red Blood Cells % 0 %; Platelet Count 285 10^3/cmm (157-399); Red Blood Count 3.64 10^6/uL (3.85-5.65); Red Cell Distribution Width 14.6 % (12.1-15.1); White Blood Count 9.65 10^3/uL (3.29-11.43)
--- NOTE | 2023-05-01 12:48 | XRR_ITS ---
PROCEDURE INFORMATION: Exam: XR Chest Exam date and time: 05/01/2023 1:11 PM Age: 68 years old Clinical indication: Other: Check notes; Additional info: Dyspnea TECHNIQUE: Imaging protocol: Radiologic exam of the chest. Views: 1 view. COMPARISON: CR XR chest 1V portable [id number] 04/09/2023 12:41 PM FINDINGS: Tubes, catheters and devices: Dialysis catheter remains in place. Lungs: Questionable small stringy area of infiltrate or atelectasis in the left base/retrocardiac region. Pleural spaces: Unremarkable. No pleural effusion. No pneumothorax. Heart/Mediastinum: Unremarkable. No cardiomegaly. Bones/joints: There are the are sternal sutures. No acute findings. XR/XR chest 1V portable [id number] IMPRESSION: Questionable small stringy area of infiltrate or atelectasis in the left base/retrocardiac region. Clinical correlation is needed.
[2023-05-01 13:00] LABS: Alanine Aminotransferase 20 U/L (0-41); Albumin Level 3.9 g/dL (3.5-5.2); Alkaline Phosphatase 112 U/L (40-130); Anion Gap 13.3 (5-19); Aspartate Amino Transferase 21 U/L (0-40); Blood Urea Nitrogen 19 mg/dL (8-23); Calcium 8.8 mg/dL (8.5-10.5); Carbon Dioxide 33 mmol/L (22-29); Chloride 96 mmol/L (98-107); Glucose 141 mg/dL (65-115); Osmolality Calculated 291 mOsm/kg (285-295); Potassium 4.3 mmol/L (3.5-5.1); Sodium 138 mmol/L (136-145); Total Bilirubin 0.4 mg/dL (0.15-1.2); Total Protein 6.9 g/dL (6.6-8.7)
[2023-05-01 14:56] VITALS: BP 134/46; PULSE 70; RESP 25; O2SAT 100
== END 2023-05-01 14:57 | disposition home or self-care (01) ==
PROVIDERS: Emergency Provider Family Medicine; PCP Family Medicine Adult Medicine
DX: R00.1 Bradycardia, unspecified (principal); I13.2 Hypertensive heart and chronic kidney disease with heart failure and with stage 5 chronic kidney disease, or end stage renal disease; I50.9 Heart failure, unspecified; E11.22 Type 2 diabetes mellitus with diabetic chronic kidney disease; N18.6 End stage renal disease; I25.10 Atherosclerotic heart disease of native coronary artery without angina pectoris; I25.2 Old myocardial infarction; J44.9 Chronic obstructive pulmonary disease, unspecified; E78.2 Mixed hyperlipidemia; Z95.1 Presence of aortocoronary bypass graft; Z87.891 Personal history of nicotine dependence; T88.7XXA Unspecified adverse effect of drug or medicament, initial encounter; T50.905A Adverse effect of unspecified drugs, medicaments and biological substances, initial encounter; Z99.2 Dependence on renal dialysis; Z79.82 Long term (current) use of aspirin; Z79.4 Long term (current) use of insulin
CPT/HCPCS: 71045; 80053; 85025; 93005; 99285

== ENCOUNTER 2023-05-11 10:05 | Outpatient (RCR) | payer SELFPAY | END 2023-06-08 23:59 | disposition home or self-care (01) | LOC: CR 10:05 | PROVIDERS: PCP Family Medicine Adult Medicine; Referring Provider Internal Medicine; Visit Provider Internal Medicine | DX: Z95.5 Presence of coronary angioplasty implant and graft (principal) ==

== ENCOUNTER 2023-05-12 13:40 | Outpatient (CLI) | payer MEDICARE, SELFPAY ==
--- NOTE | 2023-05-12 13:55 | XR_ITS ---
WS: [id number] EXAMINATION: XR KUB [id number] REASON FOR EXAM: ESRD/DEP ON RENAL DIALYSIS PD CATH OBSTRUCTION COMPARISON: None available. ORDER DATE: 05/12/2023 2:02 PM FINDINGS: There is a nonspecific colonic gas pattern with scattered fecal content and gas. There is no sign of significant small bowel dilation. No pathologic abdominal calcification is seen. There is a peritoneal dialysis catheter in place but not in the optimal position of the pelvic cul-de -sac but rather in the right upper quadrant. IMPRESSION: Suboptimal peritoneal dialysis catheter position.
--- NOTE | 2023-05-12 13:55 | XR_ITS ---
WS: [id number] EXAMINATION: XR pelvis 1-2V* [id number] REASON FOR EXAM: ESRD/DEP ON RENAL DIALYSIS/PD CATH OBSTRUCTION COMPARISON: None available. ORDER DATE: 05/12/2023 2:02 PM FINDINGS: There is no sign of any acute osseous or articular abnormality. There are no specific soft tissue abn ormalities. IMPRESSION: No acute osseous change. Atherosclerotic vascular calcifications noted. Peritoneal catheter noted
== END 2023-05-12 13:41 | disposition home or self-care (01) ==
LOC: RAD 13:46
PROVIDERS: PCP Family Medicine Adult Medicine; Visit Provider Internal Medicine Nephrology
DX: N18.6 End stage renal disease (principal); Z99.2 Dependence on renal dialysis
CPT/HCPCS: 72170; 74018

== ENCOUNTER → 2023-06-02 14:37 | Outpatient (BNVA) | payer MEDICARE, SELFPAY | PROVIDERS: PCP Family Medicine Adult Medicine; Visit Provider Surgery | DX: T85.611A Breakdown (mechanical) of intraperitoneal dialysis catheter, initial encounter (principal); X58.XXXA Exposure to other specified factors, initial encounter | CPT/HCPCS: 99214 ==

== ENCOUNTER 2023-06-09 10:07 | Outpatient (RCR) | payer SELFPAY | END 2023-07-08 23:59 | disposition home or self-care (01) | LOC: CR 10:07 | PROVIDERS: PCP Family Medicine Adult Medicine; Referring Provider Internal Medicine; Visit Provider Internal Medicine | DX: Z95.5 Presence of coronary angioplasty implant and graft (principal) ==

== ENCOUNTER → 2023-07-13 08:46 | Outpatient (BNVA) | payer MEDICARE, SELFPAY | PROVIDERS: PCP Family Medicine Adult Medicine; Visit Provider Internal Medicine | DX: E11.65 Type 2 diabetes mellitus with hyperglycemia (principal); E78.2 Mixed hyperlipidemia; E11.649 Type 2 diabetes mellitus with hypoglycemia without coma; Z79.4 Long term (current) use of insulin | CPT/HCPCS: 99215 ==

== ENCOUNTER 2023-07-15 10:26 | Outpatient (RCR) | payer SELFPAY | END 2023-08-08 23:59 | disposition home or self-care (01) | LOC: CR 10:26 | PROVIDERS: PCP Family Medicine Adult Medicine; Referring Provider Internal Medicine; Visit Provider Internal Medicine | DX: Z95.5 Presence of coronary angioplasty implant and graft (principal) ==

== ENCOUNTER → 2023-08-06 09:36 | Outpatient (BNVA) | payer MEDICARE, SELFPAY | PROVIDERS: PCP Family Medicine Adult Medicine; Visit Provider Internal Medicine | DX: I25.700 Atherosclerosis of coronary artery bypass graft(s), unspecified, with unstable angina pectoris (principal); I45.5 Other specified heart block; N17.9 Acute kidney failure, unspecified; I47.29 Other ventricular tachycardia; I11.0 Hypertensive heart disease with heart failure; I50.9 Heart failure, unspecified; Z87.891 Personal history of nicotine dependence | CPT/HCPCS: 99214 ==

== ENCOUNTER 2023-08-10 11:36 | Outpatient (RCR) | payer SELFPAY | END 2023-09-08 23:59 | disposition home or self-care (01) | LOC: CR 11:36 | PROVIDERS: PCP Family Medicine Adult Medicine; Referring Provider Internal Medicine; Visit Provider Internal Medicine | DX: Z95.5 Presence of coronary angioplasty implant and graft (principal) ==

== ENCOUNTER 2023-08-11 13:42 | Outpatient (CLI) | payer MEDICARE, SELFPAY ==
--- NOTE | 2023-08-11 14:00 | USCV_ITS ---
Luis Alfredo Thompson Age: 68 Gender: M : 1955 Exam Date: 08/11/2023 13:56 Ordering Phys: Francis Israel M.D ([email or web address]) Technologist: Exam Location: [facility] Indication: hx of cad BP: 120 / 54 HR: 45 Rhythm: Sinus Technical Quality: Adequate MEASUREMENTS (Male / Female) Normal Values 2D ECHO LV Diastolic Diameter PLAX 5.5 cm 4.2 - 5.9 / 3.9 - 5.3 cm LV Systolic Diameter PLAX 4.8 cm IVS Diastolic Thickness 1.2 cm 0.6 - 1.0 / 0.6 - 0.9 cm IVS Systolic Thickness 1.5 cm LVPW Diastolic Thickness 1.2 cm 0.6 - 1.0 / 0.6 - 0.9 cm LVPW Systolic Thickness 1.3 cm LVOT Diameter 2.0 cm LV Ejection Fraction 2D Teich 26.6 % LV Ejection Fraction MOD 2C 57.9 % LV Ejection Fraction 2C AL 60.2 % LA Diameter 4.1 cm IVC Diameter 1.4 cm M-MODE Aortic Annulus Diameter 3.3 cm LA Ao Ratio MM 1.3 MV E Point Septal Separation 1.8 cm DOPPLER AV Peak Velocity 141.0 cm/s LVOT Peak Velocity 86.0 cm/s AV Area Cont Eq vti 1.7 cm squared AV Area Cont Eq pk 2.0 cm squared MV Area PHT 5.0 cm squared Mitral E to A Ratio 2.0 MV E' Velocity 60.5 cm/s Mitral E to MV E' Ratio 20.1 Mitral E to LV E' Lateral Ratio 16.6 Mitral E to LV E' Septal Ratio 25.4 TR Peak Velocity 167.7 cm/s TR Peak Gradient 11.2 mmHg RV Acceleration Time 0.1 s FINDINGS Left Ventricle Left ventricle is normal in size. LV systolic function is mildly reduced with EF of 40 to 45%. Severe hypokinesis of apical wall. Moderate hypokinesis of anterolateral wall. Grade 3 diastolic dysfunction Right Ventricle Normal in size and function Right Atrium Normal size Left Atrium Normal in size Mitral Valve Moderate mitral regurgitation Aortic Valve Grossly normal. No significant stenosis or regurgitation. Tricuspid Valve Mild tricuspid regurgitation. Insufficient TR jet to evaluate RVSP. Pulmonic Valve Not well visualized Pericardium Normal Aorta Normal in size IVC Appears to be normal CONCLUSIONS LV systolic function is mildly reduced with EF of 40 to 45%. Above-mentioned regional wall motion normalities. Grade 3 valve dysfunction. Moderate mitral regurgitation Mild tricuspid regurgitation Compared to prior echocardiogram from 08/28/2022, LV systolic function has significantly improved and is mildly reduced now. RV function has also improved. Francis Israel MD (Electronically Signed) Final Date: 14 August 2023 15:56 S
== END 2023-08-11 13:43 | disposition home or self-care (01) ==
LOC: RAD 13:43
PROVIDERS: PCP Family Medicine Adult Medicine; Visit Provider Internal Medicine
DX: R07.9 Chest pain, unspecified (principal); R06.02 Shortness of breath; I25.10 Atherosclerotic heart disease of native coronary artery without angina pectoris; I08.1 Rheumatic disorders of both mitral and tricuspid valves
CPT/HCPCS: 93306

== ENCOUNTER 2023-08-13 08:48 | Outpatient (CLI) | payer MEDICARE, SELFPAY ==
[2023-08-13 09:14] VITALS: BMI 28.1
--- NOTE | 2023-08-13 09:14 | ECG_ITS ---
[facility] Test Date: 2023-08-13 Pat Name: Luis Alfredo Thompson Department: Room: Gender: Male Certified Driver Examiner: Jian Burciaga : 1955 Requested By: Francis Israel Order Number: [id number] Jack MD: Francis Israel M.D. Interpretive Statements NAME OF STUDY: LEXISCAN SESTAMIBI STRESS TEST INDICATION: [Chest Pain; Shortness of Breath, ] Procedure: At the baseline, the blood pressure was 141/62 mmHg with a heart rate of 68 bpm. The electrocardiogram showed normal sinus rhythm, normal axis with normal ST and T's. The Lexiscan was infused over a period of 20 seconds. A total of 0.4 mg of Lexiscan was infused. The stress phase was continued for a total of 5 minutes. Heart rate was at the end of stress phase was 74 bpm and a blood pressure of 134/65 mmHg. The EKG at the peak infusion revealed normal sinus rhythm with no significant ST-T wave changes. Sestamibi was injected 20 seconds after the Lexiscan infusion. Blood pressure at the end of recovery phase was 148/65 mmHg with a heart rate of 72bpm. Conclusion: 1. Normal EKG response to Lexiscan infusion 2. No Lexiscan induced chest pain or cardiac arrhythmia. 3. Normal blood pressure and heart rate response. 4. Sestamibi/sestamibi perfusion scan pending; see separate report. Electronically Signed On 09-12-2023 11:25:09 [employer] by Francis Israel M.D. [id number]
--- NOTE | 2023-08-13 09:15 | NMCV_ITS ---
NM pam perf SPECT r/s* [id number] Luis Alfredo Thompson Age: 68 Gender: M : 1955 Exam Date: 08/13/2023 10:06 Ordering Phys: Francis Israel M.D ([email or web address]) Technologist: GREGG Reid Exam Location: [facility] Indications: CHEST PAIN, SHORTNESS OF BREATH STRESS TEST [facility] IMAGE PROTOCOL Rest/Stress 1 Lexiscan Day Radiopharmaceutical Dose (mCi) Administration Site Administered by Rest: Tc-99m 11.0 IV GREGG Mulligan Sestamibi Stress:Tc-99m 32.9 IV GREGG Mulligan Sestamibi Rest: 13-Aug-2023 60 Discovery 630 Stress: 13-Aug-2023 30 Discovery 630 0.4mg Lexiscan. Supine position only as patient was unable to lay prone. SPECT RESULTS Technical Quality: Excellent Raw Data Analysis: Normal Image Corrections: No attenuation or motion correction applied Summed Stress Score: 39 Summed Rest Score: 26 Summed Difference Score: 13 PERFUSION FINDINGS Large sized area of partially reversible perfusion defect is noted in the anterior wall. This is consistent with large area of prior infarct with significant periinfact ischemia in LAD territory. Large sized area of partially reversible perfusion defect is noted in the inferolateral wall. This is consistent with large area of prior infarct with significant destinee-infarct ischemia in left circumflex artery territory. Large sized area of mostly reversible perfusion defect is noted in inferior wall consistent with medium sized area of prior infarct with significant area of destinee-infarct ischemia in RCA territory. FUNCTIONAL RESULTS (calculated via Gated SPECT) Stress Image LV EF (%): 30 Stress EDV (mL):212 TID: 1.06 Stress ESV (mL):149 FUNCTIONAL FINDINGS: LV systolic function is moderate to severely reduced with EF of 30%. Moderate to severe global hypokinesis IMPRESSIONS 1. Abnormal myocardial perfusion imaging with prior areas of prior infarcts with significant destinee-infarct ischemia areas noted in all 3 coronary artery territories 2. LV systolic function is moderate to severely reduced with EF of 30%. Moderate to severe global hypokinesis Francis Israel MD (Electronically Signed) Final Date: 15 August 2023 12:07 S
[2023-08-13] MEDS: regadenoson 0.4 Mg/5 ml Syringe IVP (10:39)
[2023-08-13 10:53] VITALS: BP 148/65; PULSE 75
== END 2023-08-13 08:49 | disposition home or self-care (01) ==
PROVIDERS: PCP Family Medicine Adult Medicine; Visit Provider Internal Medicine
DX: R07.9 Chest pain, unspecified (principal); R06.02 Shortness of breath; I25.2 Old myocardial infarction; R93.1 Abnormal findings on diagnostic imaging of heart and coronary circulation
CPT/HCPCS: 36415; 78452; 93017; 96374; A9500; J2785

== ENCOUNTER → 2023-08-19 09:33 | Outpatient (BNVA) | payer MEDICARE, SELFPAY | PROVIDERS: PCP Family Medicine Adult Medicine; Visit Provider Internal Medicine | DX: N18.9 Chronic kidney disease, unspecified (principal); D63.1 Anemia in chronic kidney disease; E11.65 Type 2 diabetes mellitus with hyperglycemia; E11.9 Type 2 diabetes mellitus without complications | CPT/HCPCS: 80053; 80061; 82043; 83036 ==

== ENCOUNTER → 2023-08-26 08:36 | Outpatient (BNVA) | payer MEDICARE, SELFPAY | PROVIDERS: PCP Family Medicine Adult Medicine; Visit Provider Internal Medicine | DX: E11.65 Type 2 diabetes mellitus with hyperglycemia (principal); E78.2 Mixed hyperlipidemia; E11.22 Type 2 diabetes mellitus with diabetic chronic kidney disease; N18.4 Chronic kidney disease, stage 4 (severe); Z79.4 Long term (current) use of insulin | CPT/HCPCS: 99214 ==

== ENCOUNTER 2023-09-06 09:03 | Observation (INO) | payer MEDICARE, SELFPAY ==
[2023-09-06] VITALS (26 sets, daily range): BP systolic 122–171; BP diastolic 48–84; PULSE 61–72; RESP 14–26; TEMP 36.8; O2SAT 92–100; BMI 30.1
--- NOTE | 2023-09-06 06:00 | XACV_ITS ---
Ht: 160 cm Wt: 77 kg BSA: 1.88 m2 Gender: Male : 1955 Any Known Allergies: Other Exam Priority: Routine Indication(s): - Tachycardia/V-tach - Abnormal nuclear perfusion study Procedure(s): Procedure Description: Diagnostic procedure Procedure Description: PCI procedure Procedure Description: Drug Eluting Coronary Stent Procedure Description: Miscellaneous Procedure Description: ACT Procedure Description: Coronary Angiography Diagnostic Cath Status: Elective Diagnostic Findings * INDICATION: 68-year-old man with past medical history of diabetes, congestive heart failure, CAD post CABG has been having on and off chest discomfort, dyspnea on exertion and on event monitor was found to have multiple non-sustained ventricular tachycardia episodes. He had a stress test that is abnormal. Echo showed mildly reduced LV systolic function. Plan for coronary angiogram with possible percutaneous coronary intervention. * Left Main has no significant disease. * Left Anterior Descending has patent prior stent. Mid to apical vessel has diffuse disease. * Right Coronary Artery not injected as is known occluded. * Proximal Circumflex: chronic total occlusion, YOHAN: 0 flow. * SVG to RCA: Distal SVG graft has severe 90% stenosis. Prior stent also has 70% in-stent restenosis . * Coronary angiography shows right dominance. PCI Status: Elective PCI Indication: Other Interventional Findings * Procedure details: We engaged SVG to RCA with MP guide catheter. IV heparin was administered to maintain anticoagulation. 0.014 run-through guidewire was used to cross the stenosis. We then placed 2.75 x 15 mm resolute [place] drug-eluting stent from the graft into prior stent. At this time final angiogram was performed that showed excellent stent expansion, no residual stenosis and YOHAN III flow. Guidewire and guide catheter were removed. Patient left the Webbing Tacker in a stable condition.. Conclusions 1. Severe SVG to RCA stenosis. Status post successful revascularization with 1 stent. 2. Patient has prior CABG. Recommendations * Dual antiplatelet therapy with aspirin and Plavix. * Aggressive risk factor modification. * Outpatient cardiology follow-up in 4 weeks. Interventional RX Recommendation: PCI w/o planned CABG Diagnostic RX Recommendation: PCI w/o planned CABG Anticoagulation: Heparin Pressures Phase:Rest AO : / ( 0 ) @ 7:42:00 AM Clinical Evaluation EBL: 5mL-10mL Procedural Details Procedure Consent Obtained. Admit Source: Out Patient. Current Diagnosis : Chest Pain. Pre-Procedure Time Out. Identified patient by full name and date of as verbalized by the patient/guarantor. Does the consent match the physician's order: Yes. Accurate & Complete Informed Consent: Yes. Inpatient/Outpatient History & Physical on Chart: Yes. If H&P is completed, is and addenduem needed: No; If yes, is the addendum complete: N/A. Visualize and Verify Site with Patient/Guarantor: N/A. Relevant Radiology Images available: N/A. The risks, benefits, and alternatives of sedation and/or procedure were discussed by physician. The patient agrees to continue. Procedure started. [facility] Clinical Fraility Score: 4: Vulnerable. Webbing Tacker Indications: Ventricular Tachycardia; Abnormal stress test. Chest Pain Symptom Assessment: Atypical Angina. Cardiovascular Instability: No, stable. Correct patient, site and procedure confirmed by cath team. Current diagnosis: Ventricular Tachycardia; Abnormal stress test. PERRLA. Strong, equal hand sew out operator bilaterally. Lungs clear x 5 lobes. IV Site on Arrival: 22 gauge in the right hand. IV Fluids: 0.9% NaCl at KVO. 0 mL infused prior to prestressed concrete laborer. Pre Procedural Pulses: bilateral radial was 3+. Pre Procedural Pulses: bilateral dorsalis pedis was Doppled. Pre Procedural Pulses: bilateral posterior tibial was Doppled. Oxygen started at 3liters/min via nasal canula. bilateral groins was prepped with chloroprep then draped in the usual sterile fashion. Physician notified. Baseline sample Acquired. HR: 63 BPM. Family updated by MD prior to arrival. Physician arrived. Physician scrubbed in. Immediate Pre-Procedure Time Out. Correct Patient: Yes; Correct Procedure: Yes; Correct Site: Yes; Correct Patient Position: Yes; Correct Supplies: Yes; Dried Flammable Prep: Yes; Blood Products Available: N/A;. Lidocaine 1% infiltrated to the right groin. Arterial access obtained with micropuncture set. A 5 tajik JL4 catheter in over wire. Multiple views taken of left coronary artery. Catheter removed over the standard wire. A 5 tajik MPA1 catheter in over wire. SVG's to RCA visualized and patent. SVG TO OM is known occluded.No injection requried. Catheter removed over the wire. Inventory is CRD 6FR MPA 1 GUIDE. 6 tajik MPA 1 guide catheter was inserted over the wire. Guide seated in the SVG to RCA. Runthrough guidewire was advanced through the guide catheter to lesion in the distal RCA graft. Guidewire advanced across lesion. Inflation Number : 1 Diana KUNZT R RYLEE 2.75X15 KASHMIR -Lot Number# [id number] was prepped and advanced across the Aorta Right -> R PDA. The stent was deployed at 12 MIRELLA for 0:17 seconds. EXP 04/06/24. Results checked. Inflation number: 2 The stent balloon was then re-inflated across the Aorta Right -> R PDA to 4 MIRELLA for 0:07 seconds. Stent balloon out over wire. Results checked. Wire out. ACT drawn. Results 356 seconds. Therapeutic limits - pre-heparin administration 90-150 seconds and monitoring heparin during a vascular procedure >250 seconds. Guide catheter out over the wire. Physician review of films. A Right femoral angiogram was performed to determine safe placement of closure device. Physcian scrubbed out. A Suture was successful obtaining hemostatsis at the Right Femoral artery insertion site. Sheath(s) sutured into position with 2-0 silk and sterile 4x4's and Op-site applied over the site. No oozing or signs and symptoms of hematoma noted. Arterial sheath flushed and connected to tranducer and pressure bag with heparinized saline. Post Procedure: Pulses reassessed and unchanged. PERRLA. Strong, equal hand sew out operator bilaterally. No VTE prophylaxis required. Medication waste: Heparin- 3000 units Fentanyl- 75 mcg. Total IV fluids: 50 mL. Fluoro: 5:06. Contrast type used: Omnipaque 300 mg/mL, 150 mL bottle. [id number]. Vital chart was stopped. Post-op diagnosis: Severe distal RCA graft stenosis; S/P one k[place]. Complications: None. Estimated blood loss: 5mL-10mL. Responsiveness - Normal response to verbal stimuli; alert and oriented, PERRLA. Airway - Unaffected, no intervention required; spontaneous ventilation. Circulation: W/N/L, pulses unchanged. Nausea/Vomiting: No. Procedure completed. Patient transferred by bed to 1st floor. Access Site Site: Right Femoral artery Sheath Size: 6 Fr Hemostasis Method: Suture Hemostasis Success: Successful Procedure Medications Start: 7:43 AM Stop: 7:43 AM Medication: Versed 1 mg and Fentanyl 25 mcg Amount: 1 Route: I.V. Start: 7:48 AM Stop: 7:48 AM Medication: Versed Amount: 1 mg Route: I.V. Start: 7:57 AM Stop: 7:57 AM Medication: Heparin Amount: 7000 units Route: I.V. Start: 8:13 AM Stop: 8:13 AM Medication: Plavix Amount: 600 mg Route: P.O. I, the attending physician, have reviewed and verified all procedure medications. Yes, all medications given per verbal order History/Risk Factors Hypertension: Yes Dyslipidemia: Yes Peripheral Arterial Disease (PAD): No Myocardial Infarction (PR): No Obesity: No Renal Disease: Yes Tobacco Use: Former Dialysis: Current Prior Interventions PCI: Yes CABG: Yes Valve Surgery: No Date of PCI: 07/09/2021 Report Signatures Finalized by Francis Israel MD on 09/11/2023 03:35 PM
[2023-09-06 06:30] LABS: Basophils % 0.2 %; Eosinophils # 0.5 10^3/uL (0.0-0.8); Eosinophils % 6.4 %; Hematocrit 32.7 % (37-53); Lymphocytes # 1.4 10^3/uL (0.8-4.8); Lymphocytes % 17.6 %; Mean Corpuscular HGB Conc 31.5 g/dL (30-55); Mean Corpuscular Hemoglobin 31.5 pg (27-33); Monocytes # 0.6 10^3/uL (0.2-0.9); Monocytes % 7.7 %; Neutrophils # 5.44 10^3/uL (1.8-7.7); Neutrophils % 67.7 %; Nucleated Red Blood Cells % 0 %; Platelet Count 205 10^3/cmm (157-399); Red Blood Count 3.27 10^6/uL (3.85-5.65); Red Cell Distribution Width 15.7 % (12.1-15.1); White Blood Count 8.03 10^3/uL (3.29-11.43)
[2023-09-06] MEDS: diphenhydrAMINE 50 mg Capsule PO (06:33)
[2023-09-06 06:51] LABS: Anion Gap 17.6 (5-19); Blood Urea Nitrogen 48 mg/dL (8-23); Calcium 9.3 mg/dL (8.5-10.5); Carbon Dioxide 29 mmol/L (22-29); Chloride 101 mmol/L (98-107); Glomerular Filtration Rate 15.9 mL/min (90-130); Glucose 169 mg/dL (65-115); Osmolality Calculated 315 mOsm/kg (285-295); Potassium 3.6 mmol/L (3.5-5.1); Sodium 144 mmol/L (136-145)
--- NOTE | 2023-09-06 07:35 | W.PM.OPSFHP ---
Same Day Surgery H&P Indication for Procedure/HPI DATE OF PROCEDURE: September 06, 2023 CHIEF COMPLAINT/INDICATIONFOR SURGICAL PROCEDURE: Chest pain/ NSVT/ Abnormal stress test PREOP DIAGNOSIS: Chest pain/abnormal stress test/ NSVT PLANNED PROCEDURE: Operation Date: 09/06/23 07:00 Proposed Procedures p [facility] [address]682,I47.29(Left) - Francis Israel M.D Possible percutaneous coronary intervention 68-year-old man with past medical history of diabetes, congestive heart failure, CAD post CABG has been having on and off chest discomfort, dyspnea on exertion and on event monitor was found to have multiple non-sustained ventricular tachycardia episodes. He had a stress test that is abnormal. Echo showed mildly reduced LV systolic function. Plan for coronary angiogram with possible percutaneous coronary intervention. Medications/Allergies* Home Medications Medication Instructions Recorded Confirmed Type loratadine 10 mg tablet 10 mg PO DAILY 08/25/22 09/06/23 History vitamin B complex 1 tab PO DAILY 09/29/22 09/06/23 History docusate sodium 50 mg capsule 100 mg PO BID 12/08/22 09/06/23 History (Stool Softener) simethicone 250 mg capsule 250 mg PO TID PRN Gastrointestinal 12/08/22 09/06/23 History Spasms Or Cramping vit A 7,160 unit-vit C 113 mg-vit 1 tab PO DAILY 12/08/22 09/06/23 History E 100 [id number] tablet (EyeProtect) triamcinolone acetonide 0.025 % 1 applic topical DAILY PRN Rash 01/22/23 09/06/23 History topical cream cholecalciferol (vitamin D3) 50 100 mcg PO DAILY 01/25/23 09/06/23 History mcg (2,000 unit) capsule (Vitamin D3) Allergies/Adverse Reactions Allergy/AdvReac Type Severity Reaction Status Date / Time Influenza Virus Vaccines Allergy Severe ADR-Hyperte Verified 08/26/23 08:41 nsion Penicillins Allergy ALGY-Anaphy Verified 08/26/23 08:41 laxis Current Medications: Generic Name Dose Route Start Last Admin Trade Name Freq PRN Reason Stop Dose Admin Sodium Chloride 1,000 mls @ 50 mls/hr 09/06/23 06:00 09/06/23 06:34 Sodium Chloride 0.9% IV 09/07/23 01:59 Not Given .Q20H ONE Pertinent History/Comorbid Conditions* Medical History (Updated 08/16/23 @ 10:04 by Donavan Clemons MD) Exacerbation of gout Gout Cellulitis of right foot Insomnia Current non-smoker Quit 06/28/2021 after 57 years at 1.5 packs/day Chronic GERD Hyperlipemia, mixed ORA on CPAP Anemia, chronic renal failure Acute non-ST segment elevation myocardial infarction (NSTEMI) following previous myocardial infarction Ischemic cardiomyopathy Allergic rhinitis due to allergen COPD (chronic obstructive pulmonary disease) CHF (congestive heart failure) Diabetes mellitus, type II Essential hypertension CAD (coronary artery disease) remote CABG, NSTEMI, Stents 07/2021 Surgical History (Updated 12/10/21 @ 00:00 by AMAN Denson) History of coronary artery stent placement History of appendectomy Hx of CABG Family History (Updated 12/08/22 @ 17:49 by Jigar Gusman MD) Diabetes Mother Heart attack Mother Cancer Father Social History Smoking and tobacco/nicotine status: former use of tobacco/nicotine Quit status (tobacco/nicotine): has quit using Year quit tobacco: June 2021 Former quit date comment: 1.5ppd x 57years Alcohol intake: current Alcohol intake frequency: holidays/special occasions only Alcohol type: beer Substance/Drug Use: never Caregiver/support person: No Lives independently: Yes Household members: spouse Marital status: Number of children: 2 service: No Current occupational status: retired and disabled Do you think of yourself as: Straight/Heterosexual Current gender identity: Male Pertinent Exam Findings alert, oriented x 3, clear to auscultation bilaterally and regular rate & rhythm Conscious Sedation Assessment PATIENT ASSESSED PRIOR TO SEDATION, WITH NO CHANGE NOTED: Yes AIRWAY EVAL/ANESTHESIA PLAN: normal airway, ASA III, Local Anesthesia, Risks, benefits & alternatives of sedation and/or procedure discussed and Patient agrees to continue as planned ADDITIONAL INFORMATION: Moderate sedation Recommendations Surgery/Procedure today (Left heart cath with possible percutaneous coronary intervention) Other Plans: Left heart cath with possible percutaneous coronary intervention Coding Level of Care Code Acute Code for Hong Cunningham
--- NOTE | 2023-09-06 11:35 | PC.NURSE ---
pt refused to let us check blood sugar thru our accu-chek machine. use pt's dexcom on his right upper arm- BG 122
[2023-09-06 12:29] LABS: Partial Thromboplastin Time 77.9 SECONDS (23.9-36.7)
[2023-09-06 14:13] LABS: Partial Thromboplastin Time 35.9 SECONDS (23.9-36.7)
[2023-09-06] MEDS: fentaNYL 50 mcg/mL INJ 2mL IVP (15:02)
--- NOTE | 2023-09-06 17:00 | PC.NURSE ---
pt dexcon read at 126
[2023-09-06] MEDS: allopurinol 100 mg Tablet PO (17:41)
[2023-09-06] MEDS: isosorbide mononitrate ER 30 mg Tablet PO (17:41)
[2023-09-06] MEDS: pantoprazole DR 40 mg Tablet PO (17:42)
[2023-09-06] MEDS: metoprolol tartrate 25 mg Tablet PO (17:42)
[2023-09-06] MEDS: insulin lispro 100 unit/1 mL SUBCUT (21:20)
--- NOTE | 2023-09-06 21:20 | PC.NURSE ---
patients blood glucose on carlotta was 189
--- NOTE | 2023-09-06 21:30 | PC.NURSE ---
Bed rest completed at 9pm. Patient assisted OOB and ambulated in the hallway. Right groin site assessed after ambulation, dressing is dry and intact, site soft, no hematoma present.
[2023-09-07] MEDS: trazodone 50 mg Tablet 100 MG PO (00:36)
[2023-09-07 03:19] VITALS: BP 147/58; PULSE 79; RESP 16; TEMP 37.4; O2SAT 90
[2023-09-07] MEDS: aspirin 81 mg EC Tablet PO (05:14)
[2023-09-07] MEDS: ascorbic acid 500 mg Tablet PO (05:14)
[2023-09-07 05:36] VITALS: PULSE 89
[2023-09-07 06:18] LABS: Basophils % 0.2 %; Eosinophils # 0.5 10^3/uL (0.0-0.8); Eosinophils % 5.7 %; Hematocrit 32.5 % (37-53); Lymphocytes # 1.1 10^3/uL (0.8-4.8); Lymphocytes % 12.7 %; Mean Corpuscular HGB Conc 31.4 g/dL (30-55); Mean Corpuscular Hemoglobin 31.1 pg (27-33); Mean Corpuscular Volume 99.1 fl (82-101); Mean Platelet Volume 10.7 fL (7.4-10.4); Monocytes # 0.7 10^3/uL (0.2-0.9); Monocytes % 7.9 %; Neutrophils # 6.24 10^3/uL (1.8-7.7); Neutrophils % 73.1 %; Nucleated Red Blood Cells % 0 %; Platelet Count 196 10^3/cmm (157-399); Red Blood Count 3.28 10^6/uL (3.85-5.65); Red Cell Distribution Width 15.7 % (12.1-15.1); White Blood Count 8.53 10^3/uL (3.29-11.43)
[2023-09-07 06:40] LABS: Anion Gap 18.1 (5-19); Blood Urea Nitrogen 57 mg/dL (8-23); Calcium 8.8 mg/dL (8.5-10.5); Carbon Dioxide 26 mmol/L (22-29); Chloride 101 mmol/L (98-107); Glucose 130 mg/dL (65-115); Osmolality Calculated 310 mOsm/kg (285-295); Potassium 4.1 mmol/L (3.5-5.1); Sodium 141 mmol/L (136-145)
--- NOTE | 2023-09-07 06:58 | PM.DCS ---
Discharge Providers Date of Admission: 09/06/23 09:03 Date of Discharge: September 07, 2023 Attending Provider at Admission: Francis Israel M.D Attending Provider at Discharge: Francis Israel M.D Primary Care Provider: Donavan Clemons MD Reason for Visit Reason for Visit: I47.29 Brief History: 68-year-old man with past medical history of diabetes, congestive heart failure, CAD post CABG has been having on and off chest discomfort, dyspnea on exertion and on event monitor was found to have multiple non-sustained ventricular tachycardia episodes. He had a stress test that is abnormal. Echo showed mildly reduced LV systolic function. Plan for coronary angiogram with possible percutaneous coronary intervention. Hospital Course Hospital Course Coronary angiogram demonstrated severe stenosis of the distal SVG and in-stent restenosis of prior stent at anastomosis of SVG to RCA. Both lesions were revascularized using 1 stent. Patient stayed overnight in the hospital and was stable. Was discharged home. Plan is to have dialysis same day at his dialysis center. Will be on dual antiplatelet therapy with aspirin and Plavix. Physical Exam Narrative: GENERAL: Patient is alert, awake and oriented x3. [] NECK: No jugular vein distension. [] HEENT: No cyanosis. No icterus. No pallor. [] HEART: Regular S1 and S2. No murmur, rub or gallop. [] LUNGS: Clear to auscultate bilaterally. [] CENTRAL NERVOUS SYSTEM: Grossly nonfocal. [] EXTREMITIES: Lower extremities with 1+ edema bilaterally. 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 request for service Routine Exams 09/06/23 06:00 Ordered Laboratory Results WBC 8.53 10^3/uL (3.29-11.43) 09/07/23 05:10 RBC 3.28 10^6/uL (3.85-5.65) L 09/07/23 05:10 Hgb 10.20 g/dL (11.27-16.99) L 09/07/23 05:10 Hct 32.5 % (37-53) L 09/07/23 05:10 MCV 99.1 fl (82-101) 09/07/23 05:10 MCH 31.1 pg (27-33) 09/07/23 05:10 MCHC 31.4 g/dL (30-55) 09/07/23 05:10 RDW 15.7 % (12.1-15.1) H 09/07/23 05:10 Plt Count 196 10^3/cmm (157-399) 09/07/23 05:10 MPV 10.7 fL (7.4-10.4) H 09/07/23 05:10 Neut % (Auto) 73.1 % 09/07/23 05:10 Lymph % (Auto) 12.7 % 09/07/23 05:10 Bond % (Auto) 7.9 % 09/07/23 05:10 Eos % (Auto) 5.7 % 09/07/23 05:10 Baso % (Auto) 0.2 % 09/07/23 05:10 Neut # (Auto) 6.24 10^3/uL (1.8-7.7) 09/07/23 05:10 Lymph # (Auto) 1.1 10^3/uL (0.8-4.8) 09/07/23 05:10 Bond # (Auto) 0.7 10^3/uL (0.2-0.9) 09/07/23 05:10 Eos # (Auto) 0.5 10^3/uL (0.0-0.8) 09/07/23 05:10 Baso # (Auto) 0.0 10^3/uL (0.0-0.1) 09/07/23 05:10 Nucleated RBC % (auto) 0 % 09/07/23 05:10 Nucleated RBCs # 0.0 /100WBC 09/07/23 05:10 APTT 35.9 SECONDS (23.9-36.7) D 09/06/23 13:23 Sodium 141 mmol/L (136-145) 09/07/23 05:10 Potassium 4.1 mmol/L (3.5-5.1) 09/07/23 05:10 Chloride 101 mmol/L (98-107) 09/07/23 05:10 Carbon Dioxide 26 mmol/L (22-29) 09/07/23 05:10 Anion Gap 18.1 (5-19) 09/07/23 05:10 BUN 57 mg/dL (8-23) H 09/07/23 05:10 Creatinine 4.0 mg/dL (0.7-1.2) H 09/07/23 05:10 GFR Calculation 15.0 mL/min (90-130) L 09/07/23 05:10 Glucose 130 mg/dL (65-115) H 09/07/23 05:10 Calculated Osmolality 310 mOsm/kg (285-295) H 09/07/23 05:10 Calcium 8.8 mg/dL (8.5-10.5) 09/07/23 05:10 Vitals Last Vital Signs Temp 99.3 F 09/07/23 03:19 Pulse 89 09/07/23 05:36 Resp 16 09/07/23 03:19 BP 147/58 09/07/23 03:19 Pulse Ox 90 09/07/23 03:19 O2 Del Method Nasal Cannula 09/07/23 03:19 Discharge Plan Discharge Patient Disposition: Home Condition: Stable Prescriptions: New clopidogrel 75 mg Tablet 75 mg PO DAILY Qty: 90 3RF Continued ascorbic acid (vitamin C) [Vitamin C] 500 mg tablet 500 mg PO QAM Qty: 100 5RF Rx Instructions: 340 B medications aspirin 81 mg tablet,delayed release (DR/EC) 81 mg PO QAM 90 Days Qty: 90 3RF Rx Instructions: 340 B medications vitamin E 400 unit capsule 400 unit PO QAM Qty: 90 3RF Rx Instructions: 340 B medications (DME) One touch test strips 100 See Rx Instructions .Route .MEDSUPPLY Qty: 3 5RF Rx Instructions: As directed Glucose testing strips three times daily on Insulin vitamin B complex Tablet 1 tab PO DAILY Stool Softener 50 mg capsule 100 mg PO BID EyeProtect [id number] [id number]-[id number] tablet 1 tab PO DAILY metoprolol tartrate 25 mg tablet 25 mg PO BID Qty: 180 3RF allopurinol 100 mg tablet 100 mg PO DAILY 30 Days Qty: 90 1RF Hold Instructions: Resume on 11/09/22. prednisone 20 mg tablet 40 mg PO DAILY Qty: 8 0RF Rx Instructions: 2 tablets daily for 3 days then 1 tablet daily for 2 days isosorbide mononitrate 30 mg tablet extended release 24 hr 30 mg PO BID 90 Days Qty: 180 1RF Rx Instructions: 340 B medications bumetanide 1 mg tablet 1 mg PO Q12H Qty: 60 5RF Hold Instructions: Resume on 11/09/22. Rx Instructions: 340 B medications insulin glargine [Lantus Solostar U-100 Insulin] 100 unit/mL (3 mL) insulin pen 60 unit SUBCUT DAILY Qty: 60 1RF insulin aspart U-100 [Novolog FlexPen U-100 Insulin] 100 unit/mL (3 mL) insulin pen 20 unit SUBCUT TID MDD 60 90 Days Qty: 20 1RF (DME) FreeStyle Elli 2 Sensor Kit See Rx Instructions .ROUTE .MEDSUPPLY Qty: 6 2RF Rx Instructions: change every 14 days (DME) FreeStyle Elli 2 [place] Misc See Rx Instructions .Route Qty: 1 0RF Rx Instructions: As directed pantoprazole 40 mg tablet,delayed release (DR/EC) 40 mg PO BID Qty: 60 5RF Symbicort 80-4.5 mcg/actuation HFA aerosol inhaler 2 inh inhalation BID 30 Days Qty: 10.2 5RF Rx Instructions: 340 B medications atorvastatin 40 mg tablet 40 mg PO DAILY Qty: 60 2RF trazodone 50 mg tablet 100 mg PO DAILY PRN (Reason: sleep) Qty: 60 2RF losartan 50 mg tablet 50 mg PO DAILY Qty: 90 0RF tramadol 50 mg tablet 50 mg PO Q8H PRN (Reason: pain) 15 Days Qty: 45 3RF nitroglycerin [Nitrostat] 0.4 mg tablet, sublingual 0.4 mg sublingual Q5M PRN (Reason: chest pain) Qty: 25 3RF Rx Instructions: do not exceed 3 doses per episode 340 B medications metolazone 2.5 mg tablet 2.5 mg PO EVERY OTHER DAY Qty: 15 0RF Patient Comments: tuesdays and fridays loratadine 10 mg Tablet 10 mg PO DAILY simethicone 250 mg capsule 250 mg PO TID PRN (Reason: Gastrointestinal Spasms Or Cramping) triamcinolone acetonide 0.025 % cream 1 applic topical DAILY PRN (Reason: Rash) cholecalciferol (vitamin D3) [Vitamin D3] 50 mcg (2,000 unit) Capsule 100 mcg PO DAILY Discharge Orders: Discharge Order (Routine); Ordered 09/07/23 Ordered By: Francis Israel Referrals: Donavan Clemons MD [Primary Care Provider] - 09/15/23 10:45 am Stacey Boone FNP [Nurse Practitioner] - 09/20/23 1:30 pm Discharge Diet: Cardiac Discharge Activity: Increase activity as tolerated Patient Instructions: Clopidogrel (By mouth) (Plavix), Coronary Intravascular Stent Placement (DC), Opioid Safety, Post Angiogram Home Care Instructions Discharge Attestations Time Spent in Discharge Care*: less than 30 min Status at Discharge: Cognitive status at discharge: cognitively intact, Behavioral status at discharge: cooperative, Quality Metrics Clinical Quality Measures [ No reported AMI, CVA or VTE this stay] Coding Level of Care Code Acute Code for Chg Octavio
[2023-09-07 07:41] VITALS: BP 147/62; PULSE 75; RESP 15; TEMP 37.1
[2023-09-07 08:37] VITALS: BP 147/62
[2023-09-07] MEDS: isosorbide mononitrate ER 30 mg Tablet PO (08:37)
[2023-09-07] MEDS: pantoprazole DR 40 mg Tablet PO (08:37)
[2023-09-07] MEDS: atorvastatin 40 mg Tablet PO (08:37)
[2023-09-07] MEDS: metoprolol tartrate 25 mg Tablet PO (08:37)
[2023-09-07] MEDS: allopurinol 100 mg Tablet PO (08:37)
[2023-09-07] MEDS: clopidogrel 75 mg Tablet PO (08:37)
[2023-09-07] MEDS: losartan 50 mg Tablet PO (08:37)
--- NOTE | 2023-09-07 09:51 | PC.CHAP ---
Pastoral Care Encounter/Spiritual Assessment Type of Contact [] Declined rn x ray visit [] Patient/Family/Request visit [] Outpatient visit [] Follow-up visit [] Physician referral [] Code/Alert [] Routine visit [] Staff referral [] Actively dying [x] Patient sleeping [] Family support [] [] Out of room [] Palliative care [] [] Receiving care in room [] Pre-surgical visit [] Trauma [] Long length of stay [] ICU visit [] Other: Relational/Emotional Strength [] Patient feels connected with others/family/visitors/staff [] Distress [] Loneliness/isolation [] Abandonment Spirituality of Patient [] Person of Ileana [] Attends Alevism of their Ileana [] Believes in Prayer [] Reads Bible or Anglican materials [] There are Spiritual issues to be addressed Director Of Tax Services Interventions [] Prayer [] Active listening [] Non-anxious presence [] Spiritual/emotional support [] Crisis/trauma care [] Spiritual counseling [] Bereavement support [] Provided bereavement packet [] Provided Bible/devotional materials [] Provided toy/stuffed animal, coloring book to patient or family member [] Provided Communion [] Anointing/[place] [] Salvation [] Completed spiritual assessment [] Other: Impact on Illness or Injury [] Angry [] Fearful [] Anxious [] Often cries [] Exhaustion [] Unable to work [] Unable to attend judaism [] Unable to walk/stand [] Unable to read [] Unable to drive [] Unable to eat/drink [] Unable to sleep [] Unable to be with family [] Patient intubated [] Other: Summary Time spent with patient
== END 2023-09-07 10:28 | disposition home or self-care (01) ==
LOC: CSU 09:04
PROVIDERS: Admitting Provider Internal Medicine; PCP Family Medicine Adult Medicine; Visit Provider Internal Medicine
DX: I47.29 Other ventricular tachycardia (principal); I25.10 Atherosclerotic heart disease of native coronary artery without angina pectoris; E11.9 Type 2 diabetes mellitus without complications; I11.0 Hypertensive heart disease with heart failure; I50.9 Heart failure, unspecified; Z95.1 Presence of aortocoronary bypass graft; K21.9 Gastro-esophageal reflux disease without esophagitis; E78.2 Mixed hyperlipidemia; G47.33 Obstructive sleep apnea (adult) (pediatric); I25.2 Old myocardial infarction; J44.9 Chronic obstructive pulmonary disease, unspecified; Z87.891 Personal history of nicotine dependence
CPT/HCPCS: 36415; 80048; 85025; 85347; 85730; 93455; 96361; 96365; 96372; 96376; 99152; 99153; C1769; C1874; C1887; C1894; C9600; G0378; J1644; J1815; J2250; J3010; J7030; Q0163; Q9967

== ENCOUNTER → 2023-09-27 13:42 | Outpatient (BNVA) | payer MEDICARE, SELFPAY | PROVIDERS: PCP Family Medicine Adult Medicine; Visit Provider Internal Medicine Pulmonary Disease | DX: J43.1 Panlobular emphysema (principal); I50.42 Chronic combined systolic (congestive) and diastolic (congestive) heart failure; N18.30 Chronic kidney disease, stage 3 unspecified; I25.118 Atherosclerotic heart disease of native coronary artery with other forms of angina pectoris; E11.65 Type 2 diabetes mellitus with hyperglycemia; Z87.891 Personal history of nicotine dependence; Z79.82 Long term (current) use of aspirin; Z79.4 Long term (current) use of insulin; Z95.1 Presence of aortocoronary bypass graft | CPT/HCPCS: 99214 ==